=== PATIENT | female | born 1945 | race Caucasian/White ===

== ENCOUNTER → 2017-11-16 11:06 | Outpatient (CLI) | payer MEDICARE, SELFPAY ==
[2017-11-16 14:37] LABS: Absolute Lymphocyte Count 0.87 X10^3/ul (0.83-4.51); Absolute Neutrophil Count 2.6 X10^3/uL (2.0-7.7); Basophil# 0.01 X10^3/uL; Basophil% 0.3 % (0-1); Eosinophil# 0.14 X10^3/uL; Eosinophils% 3.6 % (0-5); Hematocrit 38.3 % (37-47); Hemoglobin 12.8 g/dl (12.0-15.0); Lymphocyte # 0.87 X10^3/ul (4.0); Lymphocyte % 22.5 % (19-41); Mean Corp Hgb Conc 33.4 g/gl (32-36); Mean Corpuscular Hgb 31.7 pg (27.0-32.0); Mean Corpuscular Volume 94.8 fL (81-99); Mean Platelet Vol. 10.4 fl (6.2-12.0); Monocyte% 7.8 % (0-10); Neutrophil # 2.55 X10^3/uL (2.7-7.7); Neutrophil % 65.8 % (47-70); Platelet Count 207 K/mm3 (150-450); RBC Distribution Width CV 13.6 % (11.6-14.6); Red Blood Count 4.04 M/mm3 (4.2-5.4); White Blood Count 3.9 K/mm3 (4.4-11.0)
[2017-11-16 14:42] LABS: POSITIVE COUNT NO; POSITIVE DIFFERENTIAL NO; POSITIVE MORPHOLOGY NO
[2017-11-16 14:45] LABS: ALB/GLOB Ratio 1.1 RATIO (0.9-2.4); AST(SGOT) 32 U/L (15-37); Alanine Aminotransfer ALT/SGPT 44 U/L (13-56); Alkaline Phosphatase 46 U/L (45-117); Anion Gap 8 (5-15); BUN 23 mg/dL (7-18); BUN/Creat Ratio 26.3 RATIO (10-20); Calcium,Total 9.2 mg/dL (8.5-10.1); Chloride 100 mmol/L (98-107); Creatinine, Serum 0.88 mg/dL (0.55-1.02); EST Glomerular Filtration Rate 68 mL/min (>60); Est Glom Filt Rate - Afr Amer 82 mL/min (>60); Globulin 3.7 g/dL (2.2-4.2); Glucose 94 mg/dL (74-106); Potassium 4.1 mmol/L (3.5-5.1); Protein, Total 7.7 g/dL (6.4-8.2); Sodium Level 137 mmol/L (136-145)
== END ==
PROVIDERS: Family Provider Family Medicine; PCP Family Medicine; Visit Provider Internal Medicine Rheumatology
DX: M06.00 Rheumatoid arthritis without rheumatoid factor, unspecified site (principal); Z79.899 Other long term (current) drug therapy; M15.9 Polyosteoarthritis, unspecified; M21.40 Flat foot [pes planus] (acquired), unspecified foot
CPT/HCPCS: 36415; 80053; 85025

== ENCOUNTER → 2018-02-08 11:52 | Outpatient (CLI) | payer MEDICARE, SELFPAY ==
[2018-02-08 14:25] LABS: Absolute Lymphocyte Count 1.03 X10^3/ul (0.83-4.51); Absolute Neutrophil Count 2.4 X10^3/uL (2.0-7.7); Basophil# 0.01 X10^3/uL; Basophil% 0.3 % (0-1); Eosinophil# 0.16 X10^3/uL; Eosinophils% 4.1 % (0-5); Hematocrit 40.3 % (37-47); Hemoglobin 13.3 g/dl (12.0-15.0); Lymphocyte # 1.03 X10^3/ul (4.0); Lymphocyte % 26.6 % (19-41); Mean Corpuscular Hgb 31.2 pg (27.0-32.0); Mean Corpuscular Volume 94.6 fL (81-99); Mean Platelet Vol. 10.9 fl (6.2-12.0); Monocyte# 0.31 X10^3/uL; Neutrophil # 2.36 X10^3/uL (2.7-7.7); Platelet Count 202 K/mm3 (150-450); RBC Distribution Width CV 13.2 % (11.6-14.6); RBC Distribution Width SD 44.1 fl (35.1-43.9); Red Blood Count 4.26 M/mm3 (4.2-5.4); White Blood Count 3.9 K/mm3 (4.4-11.0)
[2018-02-08 14:27] LABS: POSITIVE COUNT NO; POSITIVE DIFFERENTIAL NO; POSITIVE MORPHOLOGY NO
[2018-02-08 14:52] LABS: ALB/GLOB Ratio 1.1 RATIO (0.9-2.4); AST(SGOT) 34 U/L (15-37); Alanine Aminotransfer ALT/SGPT 40 U/L (13-56); Albumin, Serum 4.2 g/dL (3.2-5.0); Alkaline Phosphatase 43 U/L (45-117); Anion Gap 6 (5-15); BUN 23 mg/dL (7-18); BUN/Creat Ratio 24.9 RATIO (10-20); Calcium,Total 9.5 mg/dL (8.5-10.1); Chloride 102 mmol/L (98-107); Creatinine, Serum 0.92 mg/dL (0.55-1.02); EST Glomerular Filtration Rate 63 mL/min (>60); Est Glom Filt Rate - Afr Amer 77 mL/min (>60); Globulin 3.7 g/dL (2.2-4.2); Glucose 81 mg/dL (74-106); Protein, Total 7.9 g/dL (6.4-8.2); Sodium Level 138 mmol/L (136-145)
== END ==
PROVIDERS: Family Provider Family Medicine; PCP Family Medicine; Visit Provider Internal Medicine Rheumatology
DX: M06.00 Rheumatoid arthritis without rheumatoid factor, unspecified site (principal); Z79.899 Other long term (current) drug therapy; M15.9 Polyosteoarthritis, unspecified; M21.40 Flat foot [pes planus] (acquired), unspecified foot
CPT/HCPCS: 36415; 80053; 85025

== ENCOUNTER → 2018-05-12 14:41 | Outpatient (CLI) | payer MEDICARE, SELFPAY ==
[2018-05-12 15:27] LABS: Absolute Lymphocyte Count 0.95 X10^3/ul (0.83-4.51); Absolute Neutrophil Count 2.7 X10^3/uL (2.0-7.7); Basophil# 0.02 X10^3/uL; Basophil% 0.5 % (0-1); Eosinophil# 0.14 X10^3/uL; Eosinophils% 3.4 % (0-5); Hematocrit 37.8 % (37-47); Hemoglobin 12.1 g/dl (12.0-15.0); Lymphocyte # 0.95 X10^3/ul (4.0); Lymphocyte % 22.8 % (19-41); Mean Corpuscular Hgb 30.8 pg (27.0-32.0); Mean Corpuscular Volume 96.2 fL (81-99); Mean Platelet Vol. 10.4 fl (6.2-12.0); Monocyte# 0.34 X10^3/uL; Monocyte% 8.2 % (0-10); Neutrophil # 2.71 X10^3/uL (2.7-7.7); Neutrophil % 64.9 % (47-70); Platelet Count 181 K/mm3 (150-450); RBC Distribution Width CV 13.7 % (11.6-14.6); RBC Distribution Width SD 47.5 fl (35.1-43.9); Red Blood Count 3.93 M/mm3 (4.2-5.4); White Blood Count 4.2 K/mm3 (4.4-11.0)
[2018-05-12 15:37] LABS: POSITIVE COUNT NO; POSITIVE DIFFERENTIAL NO; POSITIVE MORPHOLOGY NO
[2018-05-12 15:53] LABS: ALB/GLOB Ratio 1.1 RATIO (0.9-2.4); AST(SGOT) 34 U/L (15-37); Alanine Aminotransfer ALT/SGPT 40 U/L (13-56); Albumin, Serum 3.9 g/dL (3.2-5.0); Alkaline Phosphatase 38 U/L (45-117); Anion Gap 4 (5-15); BUN 24 mg/dL (7-18); BUN/Creat Ratio 22.6 RATIO (10-20); Calcium,Total 8.9 mg/dL (8.5-10.1); Chloride 103 mmol/L (98-107); Creatinine, Serum 1.06 mg/dL (0.55-1.02); EST Glomerular Filtration Rate 54 mL/min (>60); Est Glom Filt Rate - Afr Amer 65 mL/min (>60); Globulin 3.5 g/dL (2.2-4.2); Glucose 84 mg/dL (74-106); Potassium 3.8 mmol/L (3.5-5.1); Protein, Total 7.4 g/dL (6.4-8.2); Sodium Level 139 mmol/L (136-145)
== END ==
PROVIDERS: Family Provider Family Medicine; PCP Family Medicine; Visit Provider Internal Medicine Rheumatology
DX: M06.00 Rheumatoid arthritis without rheumatoid factor, unspecified site (principal); Z79.899 Other long term (current) drug therapy; M15.9 Polyosteoarthritis, unspecified; M21.40 Flat foot [pes planus] (acquired), unspecified foot; M18.11 Unilateral primary osteoarthritis of first carpometacarpal joint, right hand
CPT/HCPCS: 36415; 80053; 85025

== ENCOUNTER → 2018-08-02 11:32 | Outpatient (CLI) | payer MEDICARE, SELFPAY ==
[2018-08-02 14:31] LABS: Absolute Lymphocyte Count 1.12 X10^3/ul (0.83-4.51); Absolute Neutrophil Count 2.3 X10^3/uL (2.0-7.7); Basophil# 0.02 X10^3/uL; Basophil% 0.5 % (0-1); Eosinophil# 0.17 X10^3/uL; Eosinophils% 4.4 % (0-5); Hematocrit 38.8 % (37-47); Hemoglobin 12.4 g/dl (12.0-15.0); Lymphocyte # 1.12 X10^3/ul (4.0); Lymphocyte % 28.7 % (19-41); Mean Corpuscular Hgb 30.9 pg (27.0-32.0); Mean Corpuscular Volume 96.8 fL (81-99); Mean Platelet Vol. 10.8 fl (6.2-12.0); Monocyte# 0.32 X10^3/uL; Monocyte% 8.2 % (0-10); Neutrophil # 2.27 X10^3/uL (2.7-7.7); Neutrophil % 58.2 % (47-70); Platelet Count 191 K/mm3 (150-450); RBC Distribution Width CV 13.8 % (11.6-14.6); RBC Distribution Width SD 48.8 fl (35.1-43.9); Red Blood Count 4.01 M/mm3 (4.2-5.4); White Blood Count 3.9 K/mm3 (4.4-11.0)
[2018-08-02 14:34] LABS: POSITIVE COUNT NO; POSITIVE DIFFERENTIAL NO; POSITIVE MORPHOLOGY NO
[2018-08-02 14:41] LABS: ALB/GLOB Ratio 1.1 RATIO (0.9-2.4); AST(SGOT) 32 U/L (15-37); Alanine Aminotransfer ALT/SGPT 46 U/L (13-56); Albumin, Serum 3.9 g/dL (3.2-5.0); Alkaline Phosphatase 37 U/L (45-117); Anion Gap 9 (5-15); BUN 19 mg/dL (7-18); Calcium,Total 8.6 mg/dL (8.5-10.1); Chloride 102 mmol/L (98-107); Creatinine, Serum 0.86 mg/dL (0.55-1.02); EST Glomerular Filtration Rate 68 mL/min (>60); Est Glom Filt Rate - Afr Amer 83 mL/min (>60); Globulin 3.7 g/dL (2.2-4.2); Glucose 95 mg/dL (74-106); Potassium 3.8 mmol/L (3.5-5.1); Protein, Total 7.6 g/dL (6.4-8.2); Sodium Level 140 mmol/L (136-145)
== END ==
PROVIDERS: Family Provider Family Medicine; PCP Family Medicine; Referring Provider Internal Medicine Rheumatology; Visit Provider Internal Medicine Rheumatology
DX: M06.00 Rheumatoid arthritis without rheumatoid factor, unspecified site (principal); Z79.899 Other long term (current) drug therapy; M15.9 Polyosteoarthritis, unspecified; M21.40 Flat foot [pes planus] (acquired), unspecified foot; M18.11 Unilateral primary osteoarthritis of first carpometacarpal joint, right hand
CPT/HCPCS: 36415; 80053; 85025

== ENCOUNTER → 2018-11-03 13:40 | Outpatient (CLI) | payer MEDICARE, SELFPAY ==
[2018-11-03 14:17] LABS: Absolute Lymphocyte Count 0.65 X10^3/ul (0.83-4.51); Absolute Neutrophil Count 4.9 X10^3/uL (2.0-7.7); Basophil# 0.01 X10^3/uL; Basophil% 0.2 % (0-1); Eosinophil# 0.09 X10^3/uL; Eosinophils% 1.5 % (0-5); Hematocrit 39.2 % (37-47); Hemoglobin 12.9 g/dl (12.0-15.0); Lymphocyte # 0.65 X10^3/ul (4.0); Lymphocyte % 11.1 % (19-41); Mean Corp Hgb Conc 32.9 g/gl (32-36); Mean Corpuscular Hgb 31.4 pg (27.0-32.0); Mean Corpuscular Volume 95.4 fL (81-99); Mean Platelet Vol. 10.2 fl (6.2-12.0); Monocyte# 0.14 X10^3/uL; Monocyte% 2.4 % (0-10); Neutrophil # 4.93 X10^3/uL (2.7-7.7); Neutrophil % 84.6 % (47-70); Platelet Count 177 K/mm3 (150-450); RBC Distribution Width CV 13.7 % (11.6-14.6); RBC Distribution Width SD 47.2 fl (35.1-43.9); Red Blood Count 4.11 M/mm3 (4.2-5.4); White Blood Count 5.8 K/mm3 (4.4-11.0)
[2018-11-03 14:21] LABS: POSITIVE COUNT NO; POSITIVE DIFFERENTIAL NO; POSITIVE MORPHOLOGY NO
[2018-11-03 14:58] LABS: ALB/GLOB Ratio 1.1 RATIO (0.9-2.4); AST(SGOT) 31 U/L (15-37); Alanine Aminotransfer ALT/SGPT 39 U/L (13-56); Alkaline Phosphatase 43 U/L (45-117); Anion Gap 7 (5-15); BUN 16 mg/dL (7-18); BUN/Creat Ratio 19.6 RATIO (10-20); Calcium,Total 8.7 mg/dL (8.5-10.1); Chloride 102 mmol/L (98-107); Creatinine, Serum 0.82 mg/dL (0.55-1.02); EST Glomerular Filtration Rate 73 mL/min (>60); Est Glom Filt Rate - Afr Amer 88 mL/min (>60); Globulin 3.5 g/dL (2.2-4.2); Glucose 127 mg/dL (74-106); Potassium 3.7 mmol/L (3.5-5.1); Protein, Total 7.5 g/dL (6.4-8.2); Sodium Level 138 mmol/L (136-145)
== END ==
PROVIDERS: Family Provider Family Medicine; PCP Family Medicine; Referring Provider Internal Medicine Rheumatology; Visit Provider Internal Medicine Rheumatology
DX: M06.00 Rheumatoid arthritis without rheumatoid factor, unspecified site (principal); Z79.899 Other long term (current) drug therapy; M15.9 Polyosteoarthritis, unspecified; M21.40 Flat foot [pes planus] (acquired), unspecified foot; M18.11 Unilateral primary osteoarthritis of first carpometacarpal joint, right hand
CPT/HCPCS: 36415; 80053; 85025

== ENCOUNTER → 2019-01-31 | Outpatient (CLI) | payer MEDICARE, SELFPAY ==
[2019-01-31 10:12] LABS: Absolute Lymphocyte Count 1.19 X10^3/ul (0.83-4.51); Absolute Neutrophil Count 1.9 X10^3/uL (2.0-7.7); Basophil# 0.03 X10^3/uL; Basophil% 0.8 % (0-1); Eosinophils% 5.6 % (0-5); Hematocrit 39.6 % (37-47); Lymphocyte # 1.19 X10^3/ul (4.0); Lymphocyte % 33.1 % (19-41); Mean Corp Hgb Conc 32.8 g/gl (32-36); Mean Corpuscular Hgb 31.1 pg (27.0-32.0); Mean Corpuscular Volume 94.7 fL (81-99); Mean Platelet Vol. 10.6 fl (6.2-12.0); Monocyte# 0.26 X10^3/uL; Monocyte% 7.2 % (0-10); Neutrophil # 1.92 X10^3/uL (2.7-7.7); Neutrophil % 53.3 % (47-70); Platelet Count 183 K/mm3 (150-450); RBC Distribution Width CV 14.2 % (11.6-14.6); RBC Distribution Width SD 48.2 fl (35.1-43.9); Red Blood Count 4.18 M/mm3 (4.2-5.4); White Blood Count 3.6 K/mm3 (4.4-11.0)
[2019-01-31 10:21] LABS: POSITIVE COUNT NO; POSITIVE DIFFERENTIAL NO; POSITIVE MORPHOLOGY NO
[2019-01-31 10:41] LABS: ALB/GLOB Ratio 1.2 RATIO (0.9-2.4); AST(SGOT) 40 U/L (15-37); Alanine Aminotransfer ALT/SGPT 44 U/L (13-56); Albumin, Serum 4.2 g/dL (3.2-5.0); Alkaline Phosphatase 43 U/L (45-117); Anion Gap 4 (5-15); BUN 20 mg/dL (7-18); BUN/Creat Ratio 23.8 RATIO (10-20); Calcium,Total 8.9 mg/dL (8.5-10.1); Chloride 105 mmol/L (98-107); Creatinine, Serum 0.84 mg/dL (0.55-1.02); EST Glomerular Filtration Rate 71 mL/min (>60); Est Glom Filt Rate - Afr Amer 85 mL/min (>60); Globulin 3.5 g/dL (2.2-4.2); Glucose 78 mg/dL (74-106); Potassium 3.6 mmol/L (3.5-5.1); Protein, Total 7.7 g/dL (6.4-8.2); Sodium Level 137 mmol/L (136-145)
[2019-02-01 14:07] LABS: SJOGREN'S Anti-SS-A test < 0.2 AI (0.0-0.9); SJOGREN'S Anti-SS-B test < 0.2 AI (0.0-0.9)
[2019-02-02 12:00] LABS: ANTINUCLEAR ANTIBODIES DIRECT Negative (Negative)
== END | disposition home or self-care (01) ==
LOC: MTLAB 08:53
PROVIDERS: Family Provider Family Medicine; PCP Family Medicine; Referring Provider Internal Medicine Rheumatology; Visit Provider Internal Medicine Rheumatology
DX: M06.00 Rheumatoid arthritis without rheumatoid factor, unspecified site (principal); Z79.899 Other long term (current) drug therapy; M15.9 Polyosteoarthritis, unspecified; M21.40 Flat foot [pes planus] (acquired), unspecified foot; M18.11 Unilateral primary osteoarthritis of first carpometacarpal joint, right hand
CPT/HCPCS: 36415; 80053; 85025; 86038; 86235

== ENCOUNTER → 2019-04-23 | Outpatient (CLI) | payer MEDICARE, SELFPAY ==
[2019-04-23 13:36] LABS: Absolute Lymphocyte Count 0.88 X10^3/uL (0.83-4.51); Absolute Neutrophil Count 2.5 X10^3/uL (2.0-7.7); Basophil# 0.03 X10^3/uL; Basophil% 0.7 % (0-1); Eosinophil# 0.16 X10^3/uL; Hematocrit 37.1 % (37-47); Hemoglobin 12.1 g/dL (12.0-15.0); Lymphocyte # 0.88 X10^3/ul (4.0); Lymphocyte % 21.9 % (19-41); Mean Corp Hgb Conc 32.6 g/dL (32-36); Mean Corpuscular Hgb 31.4 pg (27.0-32.0); Mean Corpuscular Volume 96.4 fL (81-99); Mean Platelet Vol. 10.2 fl (6.2-12.0); Monocyte# 0.44 X10^3/uL; NRBC Flagged by Analyzer 0 % (0-5); Neutrophil # 2.49 X10^3/uL (2.7-7.7); Neutrophil % 62.2 % (47-70); Platelet Count 184 K/mm3 (150-450); RBC Distribution Width CV 13.2 % (11.6-14.6); RBC Distribution Width SD 45.8 fl (35.1-43.9); Red Blood Count 3.85 M/mm3 (4.2-5.4)
[2019-04-23 14:10] LABS: ALB/GLOB Ratio 1.1 RATIO (0.9-2.4); AST(SGOT) 34 U/L (15-37); Alanine Aminotransfer ALT/SGPT 42 U/L (13-56); Albumin, Serum 3.9 g/dL (3.2-5.0); Alkaline Phosphatase 48 U/L (45-117); Anion Gap 4 (5-15); BUN 19 mg/dL (7-18); Chloride 103 mmol/L (98-107); Creatinine, Serum 0.83 mg/dL (0.55-1.02); EST Glomerular Filtration Rate 72 mL/min (>60); Est Glom Filt Rate - Afr Amer 87 mL/min (>60); Globulin 3.7 g/dL (2.2-4.2); Glucose 86 mg/dL (74-106); Protein, Total 7.6 g/dL (6.4-8.2); Sodium Level 136 mmol/L (136-145)
== END | disposition home or self-care (01) ==
LOC: MTLAB 11:59
PROVIDERS: Family Provider Family Medicine; PCP Family Medicine; Referring Provider Internal Medicine Rheumatology; Visit Provider Internal Medicine Rheumatology
DX: M06.00 Rheumatoid arthritis without rheumatoid factor, unspecified site (principal); Z79.899 Other long term (current) drug therapy; M15.9 Polyosteoarthritis, unspecified; M21.40 Flat foot [pes planus] (acquired), unspecified foot; M18.11 Unilateral primary osteoarthritis of first carpometacarpal joint, right hand
CPT/HCPCS: 36415; 80053; 85025

== ENCOUNTER → 2019-07-25 12:41 | Outpatient (CLI) | payer MEDICARE, SELFPAY ==
[2019-07-25 14:10] LABS: Absolute Lymphocyte Count 1.01 X10^3/uL (0.83-4.51); Absolute Neutrophil Count 2.4 X10^3/uL (2.0-7.7); Basophil# 0.02 X10^3/uL; Basophil% 0.5 % (0-1); Eosinophil# 0.14 X10^3/uL; Eosinophils% 3.5 % (0-5); Hematocrit 37.9 % (37-47); Hemoglobin 12.4 g/dL (12.0-15.0); Lymphocyte # 1.01 X10^3/ul (4.0); Lymphocyte % 25.5 % (19-41); Mean Corp Hgb Conc 32.7 g/dL (32-36); Mean Corpuscular Hgb 31.7 pg (27.0-32.0); Mean Corpuscular Volume 96.9 fL (81-99); Mean Platelet Vol. 10.9 fl (6.2-12.0); Monocyte# 0.36 X10^3/uL; Monocyte% 9.1 % (0-10); NRBC Flagged by Analyzer 0 % (0-5); Neutrophil # 2.43 X10^3/uL (2.7-7.7); Neutrophil % 61.4 % (47-70); Platelet Count 174 K/mm3 (150-450); RBC Distribution Width CV 13.4 % (11.6-14.6); RBC Distribution Width SD 47.7 fl (35.1-43.9); Red Blood Count 3.91 M/mm3 (4.2-5.4)
[2019-07-25 14:29] LABS: ALB/GLOB Ratio 1.1 RATIO (0.9-2.4); AST(SGOT) 34 U/L (15-37); Alanine Aminotransfer ALT/SGPT 45 U/L (13-56); Albumin, Serum 3.7 g/dL (3.2-5.0); Alkaline Phosphatase 38 U/L (45-117); Anion Gap 6 (5-15); BUN 21 mg/dL (7-18); BUN/Creat Ratio 13.5 RATIO (10-20); Calcium,Total 8.9 mg/dL (8.5-10.1); Chloride 103 mmol/L (98-107); Creatinine, Serum 1.55 mg/dL (0.55-1.02); EST Glomerular Filtration Rate 35 mL/min (>60); Est Glom Filt Rate - Afr Amer 42 mL/min (>60); Globulin 3.5 g/dL (2.2-4.2); Glucose 132 mg/dL (74-106); Protein, Total 7.2 g/dL (6.4-8.2); Sodium Level 138 mmol/L (136-145)
== END ==
PROVIDERS: Family Provider Family Medicine; PCP Family Medicine; Referring Provider Internal Medicine Rheumatology; Visit Provider Internal Medicine Rheumatology
DX: M06.00 Rheumatoid arthritis without rheumatoid factor, unspecified site (principal); Z79.899 Other long term (current) drug therapy; M15.9 Polyosteoarthritis, unspecified; M21.40 Flat foot [pes planus] (acquired), unspecified foot; M18.11 Unilateral primary osteoarthritis of first carpometacarpal joint, right hand
CPT/HCPCS: 36415; 80053; 85025

== ENCOUNTER → 2019-08-28 11:45 | Outpatient (CLI) | payer MEDICARE, SELFPAY ==
[2019-08-28 13:41] LABS: Absolute Lymphocyte Count 1.37 X10^3/uL (0.83-4.51); Absolute Neutrophil Count 2.4 X10^3/uL (2.0-7.7); Basophil# 0.04 X10^3/uL; Basophil% 0.9 % (0-1); Eosinophil# 0.13 X10^3/uL; Hemoglobin 12.8 g/dL (12.0-15.0); Lymphocyte # 1.37 X10^3/ul (4.0); Lymphocyte % 31.4 % (19-41); Mean Corp Hgb Conc 32.8 g/dL (32-36); Mean Corpuscular Hgb 31.1 pg (27.0-32.0); Mean Corpuscular Volume 94.7 fL (81-99); Mean Platelet Vol. 10.9 fl (6.2-12.0); Monocyte# 0.41 X10^3/uL; Monocyte% 9.4 % (0-10); NRBC Flagged by Analyzer 0 % (0-5); Neutrophil # 2.41 X10^3/uL (2.7-7.7); Neutrophil % 55.1 % (47-70); Platelet Count 174 K/mm3 (150-450); RBC Distribution Width CV 12.7 % (11.6-14.6); RBC Distribution Width SD 43.9 fl (35.1-43.9); Red Blood Count 4.12 M/mm3 (4.2-5.4); White Blood Count 4.4 K/mm3 (4.4-11.0)
[2019-08-28 13:57] LABS: ALB/GLOB Ratio 1.2 RATIO (0.9-2.4); AST(SGOT) 36 U/L (15-37); Alanine Aminotransfer ALT/SGPT 46 U/L (13-56); Albumin, Serum 4.1 g/dL (3.2-5.0); Alkaline Phosphatase 39 U/L (45-117); Anion Gap 5 (5-15); BUN 20 mg/dL (7-18); BUN/Creat Ratio 21.7 RATIO (10-20); Calcium,Total 9.3 mg/dL (8.5-10.1); Chloride 102 mmol/L (98-107); Creatinine, Serum 0.92 mg/dL (0.55-1.02); EST Glomerular Filtration Rate 63 mL/min (>60); Est Glom Filt Rate - Afr Amer 77 mL/min (>60); Globulin 3.4 g/dL (2.2-4.2); Glucose 83 mg/dL (74-106); Potassium 3.7 mmol/L (3.5-5.1); Protein, Total 7.5 g/dL (6.4-8.2); Sodium Level 137 mmol/L (136-145)
== END ==
PROVIDERS: Family Provider Family Medicine; PCP Family Medicine; Referring Provider Internal Medicine Rheumatology; Visit Provider Internal Medicine Rheumatology
DX: M06.00 Rheumatoid arthritis without rheumatoid factor, unspecified site (principal); Z79.899 Other long term (current) drug therapy; M15.9 Polyosteoarthritis, unspecified; M21.40 Flat foot [pes planus] (acquired), unspecified foot; M18.11 Unilateral primary osteoarthritis of first carpometacarpal joint, right hand
CPT/HCPCS: 36415; 80053; 85025

== ENCOUNTER → 2019-11-21 13:25 | Outpatient (CLI) | payer MEDICARE, SELFPAY ==
[2019-11-21 15:47] LABS: Absolute Lymphocyte Count 1.13 X10^3/uL (0.83-4.51); Absolute Neutrophil Count 2.8 X10^3/uL (2.0-7.7); Basophil# 0.03 X10^3/uL; Basophil% 0.7 % (0-1); Eosinophil# 0.14 X10^3/uL; Eosinophils% 3.2 % (0-5); Hematocrit 38.5 % (37-47); Hemoglobin 12.5 g/dL (12.0-15.0); Lymphocyte # 1.13 X10^3/ul (4.0); Lymphocyte % 26.2 % (19-41); Mean Corp Hgb Conc 32.5 g/dL (32-36); Mean Corpuscular Hgb 31.1 pg (27.0-32.0); Mean Corpuscular Volume 95.8 fL (81-99); Mean Platelet Vol. 10.4 fl (6.2-12.0); Monocyte# 0.25 X10^3/uL; Monocyte% 5.8 % (0-10); NRBC Flagged by Analyzer 0 % (0-5); Neutrophil # 2.77 X10^3/uL (2.7-7.7); Neutrophil % 64.1 % (47-70); Platelet Count 192 K/mm3 (150-450); RBC Distribution Width CV 13.5 % (11.6-14.6); RBC Distribution Width SD 47.1 fl (35.1-43.9); Red Blood Count 4.02 M/mm3 (4.2-5.4); White Blood Count 4.3 K/mm3 (4.4-11.0)
[2019-11-21 16:04] LABS: ALB/GLOB Ratio 1.1 RATIO (0.9-2.4); AST(SGOT) 33 U/L (15-37); Alanine Aminotransfer ALT/SGPT 42 U/L (13-56); Albumin, Serum 4.1 g/dL (3.2-5.0); Alkaline Phosphatase 40 U/L (45-117); Anion Gap 4 (5-15); BUN 19 mg/dL (7-18); BUN/Creat Ratio 20.6 RATIO (10-20); Calcium,Total 9.3 mg/dL (8.5-10.1); Chloride 101 mmol/L (98-107); Creatinine, Serum 0.92 mg/dL (0.55-1.02); EST Glomerular Filtration Rate 63 mL/min (>60); Est Glom Filt Rate - Afr Amer 76 mL/min (>60); Globulin 3.6 g/dL (2.2-4.2); Glucose 210 mg/dL (74-106); Potassium 3.6 mmol/L (3.5-5.1); Protein, Total 7.7 g/dL (6.4-8.2); Sodium Level 136 mmol/L (136-145)
== END ==
PROVIDERS: PCP Family Medicine; Referring Provider Internal Medicine Rheumatology; Visit Provider Internal Medicine Rheumatology
DX: M06.00 Rheumatoid arthritis without rheumatoid factor, unspecified site (principal); Z79.899 Other long term (current) drug therapy; M15.9 Polyosteoarthritis, unspecified; M21.40 Flat foot [pes planus] (acquired), unspecified foot; M18.11 Unilateral primary osteoarthritis of first carpometacarpal joint, right hand
CPT/HCPCS: 36415; 80053; 85025

== ENCOUNTER → 2020-02-20 09:10 | Outpatient (CLI) | payer MEDICARE, SELFPAY ==
[2020-02-20 13:07] LABS: Absolute Lymphocyte Count 0.89 X10^3/uL (0.83-4.51); Absolute Neutrophil Count 2.9 X10^3/uL (2.0-7.7); Basophil# 0.02 X10^3/uL; Basophil% 0.5 % (0-1); Eosinophil# 0.16 X10^3/uL; Eosinophils% 3.7 % (0-5); Hematocrit 37.6 % (37-47); Hemoglobin 12.1 g/dL (12.0-15.0); Lymphocyte # 0.89 X10^3/ul (4.0); Lymphocyte % 20.5 % (19-41); Mean Corp Hgb Conc 32.2 g/dL (32-36); Mean Corpuscular Hgb 31.4 pg (27.0-32.0); Mean Corpuscular Volume 97.7 fL (81-99); Mean Platelet Vol. 10.9 fl (6.2-12.0); Monocyte# 0.41 X10^3/uL; Monocyte% 9.4 % (0-10); NRBC Flagged by Analyzer 0 % (0-5); Neutrophil # 2.86 X10^3/uL (2.7-7.7); Neutrophil % 65.7 % (47-70); Platelet Count 183 K/mm3 (150-450); RBC Distribution Width CV 13.2 % (11.6-14.6); RBC Distribution Width SD 46.5 fl (35.1-43.9); Red Blood Count 3.85 M/mm3 (4.2-5.4); White Blood Count 4.4 K/mm3 (4.4-11.0)
[2020-02-20 13:22] LABS: ALB/GLOB Ratio 1.1 RATIO (0.9-2.4); AST(SGOT) 33 U/L (15-37); Alanine Aminotransfer ALT/SGPT 37 U/L (13-56); Albumin, Serum 3.8 g/dL (3.2-5.0); Alkaline Phosphatase 37 U/L (45-117); Anion Gap 4 (5-15); BUN 23 mg/dL (7-18); BUN/Creat Ratio 29.8 RATIO (10-20); Calcium,Total 8.9 mg/dL (8.5-10.1); Chloride 107 mmol/L (98-107); Creatinine, Serum 0.77 mg/dL (0.55-1.02); EST Glomerular Filtration Rate 78 mL/min (>60); Est Glom Filt Rate - Afr Amer 94 mL/min (>60); Globulin 3.5 g/dL (2.2-4.2); Glucose 65 mg/dL (74-106); Potassium 3.7 mmol/L (3.5-5.1); Protein, Total 7.3 g/dL (6.4-8.2); Sodium Level 140 mmol/L (136-145)
== END ==
PROVIDERS: PCP Family Medicine; Referring Provider Internal Medicine Rheumatology; Visit Provider Internal Medicine Rheumatology
DX: M06.00 Rheumatoid arthritis without rheumatoid factor, unspecified site (principal); Z79.899 Other long term (current) drug therapy; M15.9 Polyosteoarthritis, unspecified; M21.40 Flat foot [pes planus] (acquired), unspecified foot; M18.11 Unilateral primary osteoarthritis of first carpometacarpal joint, right hand
CPT/HCPCS: 36415; 80053; 85025

== ENCOUNTER → 2020-05-20 11:08 | Outpatient (CLI) | payer MEDICARE, SELFPAY ==
[2020-05-20 15:33] LABS: Absolute Lymphocyte Count 0.96 X10^3/uL (0.83-4.51); Absolute Neutrophil Count 2.1 X10^3/uL (2.0-7.7); Basophil# 0.03 X10^3/uL; Basophil% 0.8 % (0-1); Eosinophil# 0.17 X10^3/uL; Eosinophils% 4.7 % (0-5); Hematocrit 39.2 % (37-47); Hemoglobin 12.8 g/dL (12.0-15.0); Lymphocyte # 0.96 X10^3/ul (4.0); Lymphocyte % 26.6 % (19-41); Mean Corp Hgb Conc 32.7 g/dL (32-36); Mean Corpuscular Hgb 31.8 pg (27.0-32.0); Mean Corpuscular Volume 97.5 fL (81-99); Monocyte# 0.35 X10^3/uL; Monocyte% 9.7 % (0-10); NRBC Flagged by Analyzer 0 % (0-5); Neutrophil # 2.09 X10^3/uL (2.7-7.7); Neutrophil % 57.9 % (47-70); Platelet Count 194 K/mm3 (150-450); RBC Distribution Width CV 13.1 % (11.6-14.6); RBC Distribution Width SD 46.6 fl (35.1-43.9); Red Blood Count 4.02 M/mm3 (4.2-5.4); White Blood Count 3.6 K/mm3 (4.4-11.0)
[2020-05-20 16:19] LABS: ALB/GLOB Ratio 1.1 RATIO (0.9-2.4); AST(SGOT) 32 U/L (15-37); Alanine Aminotransfer ALT/SGPT 40 U/L (13-56); Alkaline Phosphatase 39 U/L (45-117); Anion Gap 2 (5-15); BUN 19 mg/dL (7-18); Chloride 103 mmol/L (98-107); Creatinine, Serum 0.83 mg/dL (0.55-1.02); EST Glomerular Filtration Rate 72 mL/min (>60); Est Glom Filt Rate - Afr Amer 87 mL/min (>60); Globulin 3.7 g/dL (2.2-4.2); Glucose 74 mg/dL (74-106); Potassium 3.9 mmol/L (3.5-5.1); Protein, Total 7.7 g/dL (6.4-8.2); Sodium Level 137 mmol/L (136-145)
== END ==
PROVIDERS: PCP Family Medicine; Referring Provider Internal Medicine Rheumatology; Visit Provider Internal Medicine Rheumatology
DX: M06.00 Rheumatoid arthritis without rheumatoid factor, unspecified site (principal); M18.11 Unilateral primary osteoarthritis of first carpometacarpal joint, right hand; M21.40 Flat foot [pes planus] (acquired), unspecified foot; Z79.899 Other long term (current) drug therapy
CPT/HCPCS: 36415; 80053; 85025

== ENCOUNTER → 2020-08-13 16:30 | Outpatient (CLI) | payer MEDICARE, SELFPAY ==
[2020-08-13 18:25] LABS: Absolute Lymphocyte Count 0.87 X10^3/uL (0.83-4.51); Absolute Neutrophil Count 2.8 X10^3/uL (2.0-7.7); Basophil# 0.03 X10^3/uL; Basophil% 0.7 % (0-1); Eosinophil# 0.16 X10^3/uL; Eosinophils% 3.7 % (0-5); Hematocrit 38.6 % (37-47); Hemoglobin 12.2 g/dL (12.0-15.0); Lymphocyte # 0.87 X10^3/ul (4.0); Lymphocyte % 20.4 % (19-41); Mean Corp Hgb Conc 31.6 g/dL (32-36); Mean Corpuscular Hgb 31.3 pg (27.0-32.0); Mean Platelet Vol. 11.1 fl (6.2-12.0); Monocyte# 0.36 X10^3/uL; Monocyte% 8.4 % (0-10); NRBC Flagged by Analyzer 0 % (0-5); Neutrophil # 2.84 X10^3/uL (2.7-7.7); Neutrophil % 66.6 % (47-70); Platelet Count 196 K/mm3 (150-450); RBC Distribution Width CV 13.3 % (11.6-14.6); White Blood Count 4.3 K/mm3 (4.4-11.0)
[2020-08-13 19:28] LABS: ALB/GLOB Ratio 1.2 RATIO (0.9-2.4); AST(SGOT) 39 U/L (15-37); Alanine Aminotransfer ALT/SGPT 51 U/L (13-56); Albumin, Serum 4.1 g/dL (3.2-5.0); Alkaline Phosphatase 47 U/L (45-117); Anion Gap 4 (5-15); BUN 26 mg/dL (7-18); BUN/Creat Ratio 26.4 RATIO (10-20); Calcium,Total 9.3 mg/dL (8.5-10.1); Chloride 105 mmol/L (98-107); Creatinine, Serum 0.98 mg/dL (0.55-1.02); EST Glomerular Filtration Rate 59 mL/min (>60); Est Glom Filt Rate - Afr Amer 71 mL/min (>60); Globulin 3.4 g/dL (2.2-4.2); Glucose 97 mg/dL (74-106); Potassium 3.7 mmol/L (3.5-5.1); Protein, Total 7.5 g/dL (6.4-8.2); Sodium Level 138 mmol/L (136-145)
== END ==
PROVIDERS: PCP Family Medicine; Referring Provider Internal Medicine Rheumatology; Visit Provider Internal Medicine Rheumatology
DX: M06.00 Rheumatoid arthritis without rheumatoid factor, unspecified site (principal); Z79.899 Other long term (current) drug therapy; M15.9 Polyosteoarthritis, unspecified; M21.40 Flat foot [pes planus] (acquired), unspecified foot; M18.11 Unilateral primary osteoarthritis of first carpometacarpal joint, right hand
CPT/HCPCS: 36415; 80053; 85025

== ENCOUNTER → 2020-10-03 14:52 | Outpatient (CLI) | payer MEDICARE, SELFPAY ==
[2020-10-03 17:49] LABS: Absolute Lymphocyte Count 0.72 X10^3/uL (0.83-4.51); Absolute Neutrophil Count 2.3 X10^3/uL (2.0-7.7); Basophil# 0.02 X10^3/uL; Basophil% 0.6 % (0-1); Eosinophils% 2.9 % (0-5); Hematocrit 37.6 % (37-47); Hemoglobin 12.2 g/dL (12.0-15.0); Lymphocyte # 0.72 X10^3/ul (4.0); Lymphocyte % 21.1 % (19-41); Mean Corp Hgb Conc 32.4 g/dL (32-36); Mean Corpuscular Hgb 31.5 pg (27.0-32.0); Mean Corpuscular Volume 97.2 fL (81-99); Mean Platelet Vol. 10.5 fl (6.2-12.0); Monocyte# 0.24 X10^3/uL; NRBC Flagged by Analyzer 0 % (0-5); Neutrophil # 2.34 X10^3/uL (2.7-7.7); Neutrophil % 68.4 % (47-70); Platelet Count 187 K/mm3 (150-450); RBC Distribution Width CV 13.2 % (11.6-14.6); RBC Distribution Width SD 47.2 fl (35.1-43.9); Red Blood Count 3.87 M/mm3 (4.2-5.4); White Blood Count 3.4 K/mm3 (4.4-11.0)
[2020-10-03 18:07] LABS: ALB/GLOB Ratio 1.1 RATIO (0.9-2.4); AST(SGOT) 38 U/L (15-37); Alanine Aminotransfer ALT/SGPT 49 U/L (13-56); Albumin, Serum 3.9 g/dL (3.2-5.0); Alkaline Phosphatase 43 U/L (45-117); Anion Gap 5 (5-15); BUN 21 mg/dL (7-18); BUN/Creat Ratio 26.2 RATIO (10-20); Calcium,Total 8.8 mg/dL (8.5-10.1); Chloride 105 mmol/L (98-107); EST Glomerular Filtration Rate 74 mL/min (>60); Est Glom Filt Rate - Afr Amer 90 mL/min (>60); Globulin 3.5 g/dL (2.2-4.2); Glucose 105 mg/dL (74-106); Potassium 3.7 mmol/L (3.5-5.1); Protein, Total 7.4 g/dL (6.4-8.2); Sodium Level 139 mmol/L (136-145)
== END ==
PROVIDERS: PCP Family Medicine; Referring Provider Internal Medicine Rheumatology; Visit Provider Internal Medicine Rheumatology
DX: M06.00 Rheumatoid arthritis without rheumatoid factor, unspecified site (principal); M18.11 Unilateral primary osteoarthritis of first carpometacarpal joint, right hand; M21.40 Flat foot [pes planus] (acquired), unspecified foot; Z79.899 Other long term (current) drug therapy
CPT/HCPCS: 36415; 80053; 85025

== ENCOUNTER → 2020-12-19 09:46 | Outpatient (CLI) | payer MEDICARE, SELFPAY ==
[2020-12-19 12:04] LABS: Absolute Lymphocyte Count 0.93 X10^3/uL (0.83-4.51); Absolute Neutrophil Count 2.7 X10^3/uL (2.0-7.7); Basophil# 0.02 X10^3/uL; Basophil% 0.5 % (0-1); Eosinophil# 0.19 X10^3/uL; Eosinophils% 4.6 % (0-5); Hematocrit 40.9 % (37-47); Hemoglobin 13.1 g/dL (12.0-15.0); Lymphocyte # 0.93 X10^3/ul (4.0); Lymphocyte % 22.7 % (19-41); Mean Corpuscular Hgb 31.5 pg (27.0-32.0); Mean Corpuscular Volume 98.3 fL (81-99); Mean Platelet Vol. 10.8 fl (6.2-12.0); Monocyte# 0.29 X10^3/uL; Monocyte% 7.1 % (0-10); NRBC Flagged by Analyzer 0 % (0-5); Neutrophil # 2.66 X10^3/uL (2.7-7.7); Neutrophil % 64.9 % (47-70); Platelet Count 193 K/mm3 (150-450); RBC Distribution Width CV 13.2 % (11.6-14.6); Red Blood Count 4.16 M/mm3 (4.2-5.4); White Blood Count 4.1 K/mm3 (4.4-11.0)
[2020-12-19 12:20] LABS: Vitamin B12 725 pg/mL (211-911)
[2020-12-19 12:29] LABS: ALB/GLOB Ratio 1.1 RATIO (0.9-2.4); AST(SGOT) 34 U/L (15-37); Alanine Aminotransfer ALT/SGPT 47 U/L (13-56); Albumin, Serum 3.9 g/dL (3.2-5.0); Alkaline Phosphatase 42 U/L (45-117); Anion Gap 5 (5-15); BUN 22 mg/dL (7-18); BUN/Creat Ratio 24.5 RATIO (10-20); Calcium,Total 9.1 mg/dL (8.5-10.1); Chloride 102 mmol/L (98-107); Cholesterol 228 mg/dL (200); EST Glomerular Filtration Rate 65 mL/min (>60); Est Glom Filt Rate - Afr Amer 79 mL/min (>60); Globulin 3.5 g/dL (2.2-4.2); Glucose 86 mg/dL (74-106); High Density Lipoprotein 109 mg/dL; Potassium 3.9 mmol/L (3.5-5.1); Protein, Total 7.4 g/dL (6.4-8.2); Sodium Level 137 mmol/L (136-145); Triglycerides 60 mg/dL; Very Low Density Lipoprotein 12 mg/dL (5-40)
== END ==
PROVIDERS: PCP Family Medicine; Referring Provider Family Medicine; Visit Provider Family Medicine
DX: M06.00 Rheumatoid arthritis without rheumatoid factor, unspecified site (principal); M21.40 Flat foot [pes planus] (acquired), unspecified foot; M18.11 Unilateral primary osteoarthritis of first carpometacarpal joint, right hand; E53.8 Deficiency of other specified B group vitamins; E78.2 Mixed hyperlipidemia; Z79.899 Other long term (current) drug therapy
CPT/HCPCS: 36415; 80053; 80061; 82607; 85025

== ENCOUNTER → 2021-03-05 13:53 | Outpatient (CLI) | payer MEDICARE, SELFPAY ==
[2021-03-05 15:01] LABS: Absolute Lymphocyte Count 1.18 X10^3/uL (0.83-4.51); Basophil# 0.03 X10^3/uL; Basophil% 0.6 % (0-1); Eosinophil# 0.16 X10^3/uL; Eosinophils% 3.3 % (0-5); Hematocrit 37.9 % (37-47); Hemoglobin 12.4 g/dL (12.0-15.0); Lymphocyte # 1.18 X10^3/ul (0.83-4.51); Lymphocyte % 24.6 % (19-41); Mean Corp Hgb Conc 32.7 g/dL (32-36); Mean Corpuscular Hgb 31.8 pg (27.0-32.0); Mean Corpuscular Volume 97.2 fL (81-99); Mean Platelet Vol. 10.5 fl (6.2-12.0); Monocyte# 0.37 X10^3/uL; Monocyte% 7.7 % (0-10); NRBC Flagged by Analyzer 0 % (0-5); Neutrophil # 3.04 X10^3/uL (2.7-7.7); Neutrophil % 63.6 % (47-70); Platelet Count 193 K/mm3 (150-450); RBC Distribution Width CV 13.6 % (11.6-14.6); RBC Distribution Width SD 48.2 fl (35.1-43.9); White Blood Count 4.8 K/mm3 (4.4-11.0)
[2021-03-05 15:39] LABS: ALB/GLOB Ratio 1.1 RATIO (0.9-2.4); AST(SGOT) 39 U/L (15-37); Alanine Aminotransfer ALT/SGPT 47 U/L (13-56); Albumin, Serum 3.8 g/dL (3.2-5.0); Alkaline Phosphatase 38 U/L (45-117); Anion Gap 3 (5-15); BUN 26 mg/dL (7-18); BUN/Creat Ratio 27.4 RATIO (10-20); Calcium,Total 9.5 mg/dL (8.5-10.1); Chloride 105 mmol/L (98-107); Creatinine, Serum 0.95 mg/dL (0.55-1.02); EST Glomerular Filtration Rate 61 mL/min (>60); Est Glom Filt Rate - Afr Amer 74 mL/min (>60); Globulin 3.4 g/dL (2.2-4.2); Glucose 88 mg/dL (74-106); Potassium 3.7 mmol/L (3.5-5.1); Protein, Total 7.2 g/dL (6.4-8.2); Sodium Level 138 mmol/L (136-145)
== END ==
PROVIDERS: PCP Family Medicine; Referring Provider Internal Medicine Rheumatology; Visit Provider Internal Medicine Rheumatology
DX: M06.00 Rheumatoid arthritis without rheumatoid factor, unspecified site (principal); M21.40 Flat foot [pes planus] (acquired), unspecified foot; M18.11 Unilateral primary osteoarthritis of first carpometacarpal joint, right hand; Z79.899 Other long term (current) drug therapy
CPT/HCPCS: 36415; 80053; 85025

== ENCOUNTER → 2021-05-06 10:52 | Outpatient (CLI) | payer MEDICARE, SELFPAY ==
[2021-05-06 12:19] LABS: Absolute Lymphocyte Count 0.98 X10^3/uL (0.83-4.51); Absolute Neutrophil Count 2.8 X10^3/uL (2.0-7.7); Basophil# 0.02 X10^3/uL; Basophil% 0.5 % (0-1); Eosinophil# 0.16 X10^3/uL; Eosinophils% 3.7 % (0-5); Hematocrit 37.4 % (37-47); Lymphocyte # 0.98 X10^3/ul (0.83-4.51); Lymphocyte % 22.8 % (19-41); Mean Corp Hgb Conc 32.1 g/dL (32-36); Mean Corpuscular Hgb 31.5 pg (27.0-32.0); Mean Corpuscular Volume 98.2 fL (81-99); Mean Platelet Vol. 10.8 fl (6.2-12.0); Monocyte# 0.35 X10^3/uL; Monocyte% 8.1 % (0-10); NRBC Flagged by Analyzer 0 % (0-5); Neutrophil # 2.78 X10^3/uL (2.7-7.7); Neutrophil % 64.7 % (47-70); Platelet Count 188 K/mm3 (150-450); RBC Distribution Width CV 13.5 % (11.6-14.6); RBC Distribution Width SD 48.3 fl (35.1-43.9); Red Blood Count 3.81 M/mm3 (4.2-5.4); White Blood Count 4.3 K/mm3 (4.4-11.0)
[2021-05-06 12:39] LABS: ALB/GLOB Ratio 1.1 RATIO (0.9-2.4); AST(SGOT) 34 U/L (15-37); Alanine Aminotransfer ALT/SGPT 42 U/L (13-56); Albumin, Serum 3.7 g/dL (3.2-5.0); Alkaline Phosphatase 35 U/L (45-117); Anion Gap 3 (5-15); BUN 22 mg/dL (7-18); BUN/Creat Ratio 26.4 RATIO (10-20); Calcium,Total 8.8 mg/dL (8.5-10.1); Chloride 104 mmol/L (98-107); Creatinine, Serum 0.83 mg/dL (0.55-1.02); EST Glomerular Filtration Rate 71 mL/min (>60); Est Glom Filt Rate - Afr Amer 86 mL/min (>60); Globulin 3.3 g/dL (2.2-4.2); Glucose 81 mg/dL (74-106); Sodium Level 137 mmol/L (136-145)
== END ==
PROVIDERS: PCP Family Medicine; Referring Provider Internal Medicine Rheumatology; Visit Provider Internal Medicine Rheumatology
DX: M06.00 Rheumatoid arthritis without rheumatoid factor, unspecified site (principal); M21.40 Flat foot [pes planus] (acquired), unspecified foot; M18.11 Unilateral primary osteoarthritis of first carpometacarpal joint, right hand; Z79.899 Other long term (current) drug therapy
CPT/HCPCS: 36415; 80053; 85025

== ENCOUNTER 2021-06-06 04:46 | Emergency (ER) | payer MEDICARE, SELFPAY ==
[2021-06-06 04:49] VITALS: BP 184/100; PULSE 73; RESP 18; TEMP 36.2; O2SAT 100; BMI 23.9
--- NOTE | 2021-06-06 04:59 | RAD_ITS ---
STUDY: X-RAY CHEST REASON FOR EXAM: Female, 76 years old. Chest pain TECHNIQUE: Portable, upright, AP chest radiograph COMPARISON: None. FINDINGS: The lungs are clear and expanded. There is no demonstrated pleural abnormality. Normal size heart. Normal mediastinum and ronald. Normal visualized pulmonary arteries. Normal visualized aortic arch and descending thoracic aorta. There are diffuse degenerative changes of the visualized thoracic spine with slight dextroscoliosis. Normal visualized ribs, clavicles, and shoulders. There is no demonstrated abnormality of the visualized soft tissue structures of the upper abdomen. RAD/Chest 1 View (Portable) IMPRESSION: No acute abnormal cardiopulmonary finding. Electronically Signed: Garry Bellamy MD at 5:23 EDT Tel , Service support ,
--- NOTE | 2021-06-06 04:59 | EKG12_ITS ---
Test Reason : CP Blood Pressure : / mmHG Vent. Rate : 063 BPM Atrial Rate : 063 BPM P-R Int : 172 ms QRS Dur : 096 ms QT Int : 402 ms P-R-T Axes : 081 068 069 degrees QTc Int : 411 ms Normal sinus rhythm Septal infarct , age undetermined Abnormal ECG Confirmed by DEDRA GUTIERREZ, ALEIDA ([id number]), editor greeting card NAZIA ROCA ([id number]) on 06/08/2021 1:18:54 PM Referred By: ANISH Confirmed By:ALEIDA COLMENARES MD
[2021-06-06 05:04] VITALS: O2SAT 100
[2021-06-06 05:07] LABS: Absolute Lymphocyte Count 1.34 X10^3/uL (0.83-4.51); Absolute Neutrophil Count 2.5 X10^3/uL (2.0-7.7); Basophil# 0.03 X10^3/uL; Basophil% 0.7 % (0-1); Eosinophil# 0.17 X10^3/uL; Eosinophils% 3.9 % (0-5); Hematocrit 40.7 % (37-47); Hemoglobin 13.5 g/dL (12.0-15.0); Lymphocyte # 1.34 X10^3/ul (0.83-4.51); Lymphocyte % 30.9 % (19-41); Mean Corp Hgb Conc 33.2 g/dL (32-36); Mean Corpuscular Hgb 32.4 pg (27.0-32.0); Mean Corpuscular Volume 97.6 fL (81-99); Mean Platelet Vol. 10.6 fl (6.2-12.0); Monocyte# 0.34 X10^3/uL; Monocyte% 7.8 % (0-10); NRBC Flagged by Analyzer 0 % (0-5); Neutrophil # 2.45 X10^3/uL (2.7-7.7); Neutrophil % 56.5 % (47-70); Platelet Count 197 K/mm3 (150-450); RBC Distribution Width CV 13.4 % (11.6-14.6); RBC Distribution Width SD 47.9 fl (35.1-43.9); Red Blood Count 4.17 M/mm3 (4.2-5.4); White Blood Count 4.3 K/mm3 (4.4-11.0)
--- NOTE | 2021-06-06 05:10 | EDS_ITS ---
HPI HPI - GI History of Present Illness Chief Complaint: Abd Pain Narrative Narrative: 76-year-old female with history of IBS presenting with abdominal pain. She states this started in her lower abdomen and radiates into her epigastrium. Patient states it feels pressure-like. She states she initially had up to the bathroom and was feeling better and then came back. Since it was radiating upward her decided to call EMS in case she was having a heart attack. Patient does not have any josé miguel chest pain or shortness of breath. She has nausea without vomiting. She states that yesterday she went to her first Tuesday and had baked beans, baked potato, broccoli salad, fried fish. She states that that her IBS she probably ate too much. She denies constipation or diarrhea. Patient states that she has less gas than she usually does. She denies urinary complaints. [facility] Medical History (Updated 06/06/21 @ 04:48 by Renan Bradley) IBS (irritable bowel syndrome) Rheumatoid arthritis Home Medications aspirin 81 mg PO DAILY@0800 08/23/13 [History Last Taken Unknown] calcium carbonate-vitamin D3 [Calcium 600 + Vit D Tablet] 1 ea PO DAILY 08/23/13 [History Last Taken Unknown] hydroxychloroquine 200 mg PO BIDCM 08/23/13 [History Last Taken Unknown] meloxicam [Mobic] 15 mg PO DAILY PRN PRN 08/23/13 [History Last Taken Unknown] multivitamin with folic acid [Thera] 1 tab PO DAILY 08/23/13 [History Last Taken Unknown] pyridoxine (vitamin B6) 100 mg PO DAILY 08/23/13 [History Last Taken Unknown] vitamin E (dl, acetate) 400 units PO DAILY 08/23/13 [History Last Taken Unknown] dicyclomine 10 mg PO PRN PRN 06/06/21 [History Last Taken Unknown] folic acid 1 mg PO DAILY 06/06/21 [History Last Taken Unknown] meclizine 12.5 mg PO BID PRN 06/06/21 [History Last Taken Unknown] methotrexate sodium 2.5 mg PO QWEEK 06/06/21 [History Last Taken Unknown] metoprolol succinate 25 mg PO BID 06/06/21 [History Last Taken Unknown] Allergy/AdvReac Type Severity Reaction Status Date / Time acetaminophen [From Vicodin] Allergy Other Verified 06/06/21 04:47 amoxicillin trihydrate Allergy Rash Verified 06/06/21 04:47 [From Augmentin] hydrocodone bitartrate Allergy Other Verified 06/06/21 04:47 [From Vicodin] potassium clavulanate Allergy Rash Verified 06/06/21 04:47 [From Augmentin] diclofenac sodium AdvReac Nausea/Vom/ Verified 06/06/21 04:47 [From Voltaren] Diarrhea tramadol AdvReac Nausea Verified 06/06/21 04:47 Social History Smoking Status: Never smoker ROS ROS ED Constitutional Constitutional ED: Denies chills or fever(s) ENT ENT ED: Denies rhinorrhea or sore throat Cardiovascular Cardiovascular: Denies chest pain or palpitations Respiratory/Chest Respiratory/Chest: Denies cough or dyspnea Gastrointestinal Gastrointestinal: Reports abdominal pain and nausea; Denies constipation or diarrhea Genitourinary Genitourinary ED: Denies dysuria or hematuria Musculoskeletal Musculoskeletal: Denies arthralgias, back pain, myalgias or neck pain Integumentary Denies abscess or rash Neurologic Neurologic: Denies headache(s) or paresthesias EXAM Physical Exam Const Vital Signs: 06/06/21 04:49 06/06/21 05:04 Temperature 97.2 F L Temperature Source Temporal Pulse Rate 73 Respiratory Rate 18 Blood Pressure 184/100 H Blood Pressure Mean 128 Pulse Ox 100 100 Oxygen Delivery Method Room Air Room Air Positive well nourished General Appearance ED: NAD; Negative for pallor HEENT Reports moist mucous membranes normocephalic and atraumatic Eyes PERRL and EOMs intact bilaterally General Eye ED: Negative for pale conjunctiva or scleral icterus Resp normal respiratory effort and clear to auscultation bilaterally Cardio regular rate and regular rhythm GI Palpation: soft and tender periumbilical Back/Spine no CVA tenderness Extremity Negative for full ROM General Extremety ED: Negative for edema General Extremity: Negative for edema Neuro CN's II-XII intact bilaterally Sensorium / Orientation: alert, oriented to person, oriented to place and oriented to time Psych mental status grossly normal and thought process normal Skin General Skin Exam: Negative for jaundice or pallor Rashes: no rashes MDM MDM MDM Narrative Medical decision making narrative: Patient initially declined pain medication or antiemetics. On arrival patient had an EKG which on my interpretation shows a normal sinus rhythm at a ventricular rate of 63 bpm. Patient be given aspirin prior to arrival via EMS. Patient has no cardiac history with exception of pulmonary hypertension she is on metoprolol for this. She has no DVT or PE risk factors. Patient CBC appears to be near her normal baseline. Her renal function and electrolytes are normal. LFTs are also normal. Lipase is negative. Initial troponin is 8. Chest x-ray on my interpretation shows no acute cardiopulmonary process and the radiologist does agree. A delta troponin will be drawn. She had a CT of the abdomen pelvis with IV contrast which shows no acute intra-abdominal process. Patient currently does not have any abdominal or chest pain. For an abdominal pain standpoint I feel the patient can be discharged home. Patient will be signed out to incoming ED physician for follow-up on delta troponin. If normal she will be discharged home. Impression: 1. Abdominal pain 2. Chest pain Lab Data Labs: Laboratory Results - last 24 hr 06/06/21 06/06/21 06/06/21 04:54 04:54 04:54 WBC 4.3 L RBC 4.17 L Hgb 13.5 Hct 40.7 MCV 97.6 MCH 32.4 H MCHC 33.2 RDW Std Deviation 47.9 H RDW Coeff of Taras 13.4 Plt Count 197 MPV 10.6 Immature Gran % (Auto) 0.200 Neut % (Auto) 56.5 Lymph % (Auto) 30.9 [place] % (Auto) 7.8 Eos % (Auto) 3.9 Baso % (Auto) 0.7 Absolute Neuts (auto) 2.5 Absolute Lymphs (auto) 1.34 Nucleated RBC % 0 Sodium 137 Potassium 4.0 Chloride 103 Carbon Dioxide 30.0 Anion Gap 4 L BUN 27 H Creatinine 0.90 Estim Creat Clear Calc 49.78 Est GFR (MDRD) Af Amer 79 Est GFR (MDRD) Non-Af 65 BUN/Creatinine Ratio 30.1 H Glucose 104 Calcium 9.5 Total Bilirubin 0.30 AST 32 ALT 42 Alkaline Phosphatase 38 L Troponin I High Sens 8 Cancelled Total Protein 7.4 Albumin 3.6 Globulin 3.8 Albumin/Globulin Ratio 0.9 Lipase 259 Urine Color Urine Clarity Urine pH Ur Specific [place] Urine Protein Urine Glucose (UA) Urine Ketones Urine Occult Blood Urine Nitrite Urine Bilirubin Urine Urobilinogen Ur Leukocyte Esterase Urine RBC Urine WBC Ur Squamous Epith Cells Urine Bacteria Urine Mucus 06/06/21 05:26 WBC RBC Hgb Hct MCV MCH MCHC RDW Std Deviation RDW Coeff of Tar[place] Plt Count MPV Immature Gran % (Auto) Neut % (Auto) Lymph % (Auto) [place] % (Auto) Eos % (Auto) Baso % (Auto) Absolute Neuts (auto) Absolute Lymphs (auto) Nucleated RBC % Sodium Potassium Chloride Carbon Dioxide Anion Gap BUN Creatinine Estim Creat Clear Calc Est GFR (MDRD) Af Amer Est GFR (MDRD) Non-Af BUN/Creatinine Ratio Glucose Calcium Total Bilirubin AST ALT Alkaline Phosphatase Troponin I High Sens Total Protein Albumin Globulin Albumin/Globulin Ratio Lipase Urine Color Yellow Urine Clarity Clear Urine pH 7.0 Ur Specific [place] 1.010 Urine Protein Negative Urine Glucose (UA) Normal Urine Ketones Negative Urine Occult Blood Negative Urine Nitrite Negative Urine Bilirubin Negative Urine Urobilinogen Normal Ur Leukocyte Esterase 25 H Urine RBC 0 SEEN Urine WBC 0 SEEN Ur Squamous Epith Cells 0 SEEN Urine Bacteria 0 SEEN Urine Mucus 0 SEEN Radiography Diagnostic Testing: Radiology Impression Chest X-Ray 06/06/21 04:59 IMPRESSION: No acute abnormal cardiopulmonary finding. Electronically Signed: Garry Bellamy MD at 5:23 EDT Tel , Service support , Abdomen/Pelvis CT 06/06/21 05:37 IMPRESSION: No acute abnormal finding in the abdomen or pelvis. Electronically Signed: Garry Bellamy MD at 6:55 EDT Tel , Service support , Discharge Plan Triage Chief Complaint: Abd Pain ED Provider: Henry Trinh Dx/Rx/DC Orders Prescriptions: No Action meloxicam [Mobic] 15 MG tablet 15 mg PO DAILY PRN PRN (Reason: Pain) RF: 0 aspirin 81 MG tablet 81 mg PO DAILY@0800 RF: 0 pyridoxine (vitamin B6) 50 MG tablet 100 mg PO DAILY RF: 0 hydroxychloroquine 200 MG tablet 200 mg PO BIDCM RF: 0 calcium carbonate-vitamin D3 [Calcium 600 + D(3)] 1 EACH tablet 1 ea PO DAILY RF: 0 vitamin E (dl, acetate) 400 UNITS capsule 400 units PO DAILY RF: 0 multivitamin with folic acid [Thera] 1 TABLET tablet 1 tab PO DAILY RF: 0 meclizine 12.5 mg Tablet 12.5 mg PO BID PRN (Reason: Vertigo) RF: 0 methotrexate sodium 2.5 mg Tablet 2.5 mg PO QWEEK RF: 0 dicyclomine 20 mg tablet 10 mg PO PRN PRN (Reason: ibs) RF: 0 folic acid 1 mg Tablet 1 mg PO DAILY RF: 0 metoprolol succinate 25 mg Tablet Extended Release 24 Hr 25 mg PO BID RF: 0 Primary Care Provider: Rashid Segura
[2021-06-06 05:26] LABS: ALB/GLOB Ratio 0.9 RATIO (0.9-2.4); AST(SGOT) 32 U/L (15-37); Alanine Aminotransfer ALT/SGPT 42 U/L (13-56); Albumin, Serum 3.6 g/dL (3.2-5.0); Alkaline Phosphatase 38 U/L (45-117); Anion Gap 4 (5-15); BUN 27 mg/dL (7-18); BUN/Creat Ratio 30.1 RATIO (10-20); Calcium,Total 9.5 mg/dL (8.5-10.1); Chloride 103 mmol/L (98-107); EST Glomerular Filtration Rate 65 mL/min (>60); Est Glom Filt Rate - Afr Amer 79 mL/min (>60); Estimated Creatinine Clearance 49.78 ml/min; Globulin 3.8 g/dL (2.2-4.2); Glucose 104 mg/dL (74-106); Lipase 259 U/L (73-393); Protein, Total 7.4 g/dL (6.4-8.2); Sodium Level 137 mmol/L (136-145); Troponin-I HS 8 pg/mL (3.0-54.0)
[2021-06-06 05:34] LABS: Bacteria 0 SEEN /hpf (None Seen); Color, Urine Yellow (Yellow); Glucose, Dipstick Normal (Normal); Ketone-Dipstick Negative (Negative); Leukocyte Esterase-Dipstick 25 /ul (Negative); Mucous, Urine 0 SEEN /hpf (<or=2+); Nitrite-Dipstick Negative (Negative); Occult Blood-Urine Negative /ul (Negative); Protein-Dipstick Negative (Negative); Red Blood Cells-Urine 0 SEEN /hpf (0-5); Squamous Epithelial Cells - UA 0 SEEN /hpf (5-10); Urine Bilirubin Dipstick Negative (Negative); Urine Clarity Clear (Clear); Urine Urobilinogen Normal (Normal); White Blood Cells 0 SEEN /hpf (0-5)
--- NOTE | 2021-06-06 05:37 | CT_ITS ---
STUDY: CT ABDOMEN AND PELVIS WITH CONTRAST REASON FOR EXAM: Female, 76 years old. periumbilical pain RADIATION DOSAGE (If Supplied By Facility): CTDIvol = ( 11.21 ) mGy, DLP = ( 425.45 ) mGycm TECHNIQUE: Transaxial images were obtained from the dome of the diaphragm to the symphysis pubis without oral contrast. IV 100mL Isovue-[id number] was administered. Sagittal and coronal images were reconstructed. Individualized dose optimization techniques were used for this CT. COMPARISON: None. FINDINGS: The visualized lung bases are unremarkable. The visualized portions of the heart are within normal limits. Normal liver. Tiny posterior liver cyst versus hemangioma. Normal gallbladder and extrahepatic biliary system. Normal spleen. Normal pancreas. Normal bilateral adrenal glands. Normal right kidney. Normal left kidney. Normal visualized stomach. Normal small intestine. Normal colon. There is non-visualization of the appendix. Normal abdominal aorta. Normal inferior vena cava. Normal retroperitoneum. Normal urinary bladder. There is absence of the uterus consistent with a prior hysterectomy. Normal abdominal wall. There are diffuse degenerative changes of the visualized lumbar spine. CT/Abdomen/Pelvis W IV Cont ONLY IMPRESSION: No acute abnormal finding in the abdomen or pelvis. Electronically Signed: Garry Bellamy MD at 6:55 EDT Tel , Service support ,
[2021-06-06 08:06] LABS: Troponin-I HS 17 pg/mL (3.0-54.0)
[2021-06-06 08:20] VITALS: PULSE 59; RESP 13; O2SAT 99
[2021-06-06 08:38] VITALS: BP 150/71; PULSE 64; RESP 18; O2SAT 97
== END 2021-06-06 08:38 | disposition home or self-care (01) ==
PROVIDERS: Emergency Provider Student in an Organized Health Care Education/Training Program; PCP Family Medicine
DX: R10.9 Unspecified abdominal pain (principal); R07.9 Chest pain, unspecified; K58.9 Irritable bowel syndrome, unspecified; M06.9 Rheumatoid arthritis, unspecified; I27.20 Pulmonary hypertension, unspecified; Z79.82 Long term (current) use of aspirin; Z79.899 Other long term (current) drug therapy; Z79.1 Long term (current) use of non-steroidal anti-inflammatories (NSAID)
CPT/HCPCS: 71045; 74177; 80053; 81001; 83690; 84484; 85025; 93005; 99285; Q9967; A4216

== ENCOUNTER → 2021-07-22 10:20 | Outpatient (CLI) | payer MEDICARE, SELFPAY ==
[2021-07-22 12:07] LABS: Absolute Lymphocyte Count 0.86 X10^3/uL (0.83-4.51); Basophil# 0.02 X10^3/uL; Basophil% 0.5 % (0-1); Eosinophil# 0.14 X10^3/uL; Eosinophils% 3.2 % (0-5); Hematocrit 37.2 % (37-47); Hemoglobin 12.2 g/dL (12.0-15.0); Lymphocyte # 0.86 X10^3/ul (0.83-4.51); Lymphocyte % 19.5 % (19-41); Mean Corp Hgb Conc 32.8 g/dL (32-36); Mean Corpuscular Hgb 32.1 pg (27.0-32.0); Mean Corpuscular Volume 97.9 fL (81-99); Mean Platelet Vol. 10.6 fl (6.2-12.0); Monocyte# 0.43 X10^3/uL; Monocyte% 9.7 % (0-10); NRBC Flagged by Analyzer 0 % (0-5); Neutrophil # 2.95 X10^3/uL (2.7-7.7); Neutrophil % 66.6 % (47-70); Platelet Count 176 K/mm3 (150-450); RBC Distribution Width CV 13.1 % (11.6-14.6); RBC Distribution Width SD 46.5 fl (35.1-43.9); White Blood Count 4.4 K/mm3 (4.4-11.0)
[2021-07-22 12:21] LABS: AST(SGOT) 32 U/L (15-37); Alanine Aminotransfer ALT/SGPT 38 U/L (13-56); Albumin, Serum 3.6 g/dL (3.2-5.0); Alkaline Phosphatase 40 U/L (45-117); Anion Gap 5 (5-15); BUN 21 mg/dL (7-18); BUN/Creat Ratio 24.5 RATIO (10-20); Calcium,Total 8.8 mg/dL (8.5-10.1); Chloride 105 mmol/L (98-107); Creatinine, Serum 0.86 mg/dL (0.55-1.02); EST Glomerular Filtration Rate 68 mL/min (>60); Est Glom Filt Rate - Afr Amer 83 mL/min (>60); Globulin 3.7 g/dL (2.2-4.2); Glucose 80 mg/dL (74-106); Potassium 3.8 mmol/L (3.5-5.1); Protein, Total 7.3 g/dL (6.4-8.2); Sodium Level 140 mmol/L (136-145)
== END ==
PROVIDERS: PCP Family Medicine; Referring Provider Internal Medicine Rheumatology; Visit Provider Internal Medicine Rheumatology
DX: M06.00 Rheumatoid arthritis without rheumatoid factor, unspecified site (principal); M18.11 Unilateral primary osteoarthritis of first carpometacarpal joint, right hand; M21.40 Flat foot [pes planus] (acquired), unspecified foot; Z79.899 Other long term (current) drug therapy
CPT/HCPCS: 36415; 80053; 85025

== ENCOUNTER 2021-12-30 09:22 | Outpatient (CLI) | payer MEDICARE, SELFPAY ==
[2021-12-30 10:13] LABS: Absolute Lymphocyte Count 0.83 X10^3/uL (0.83-4.51); Absolute Neutrophil Count 4.1 X10^3/uL (2.0-7.7); Basophil# 0.03 X10^3/uL; Basophil% 0.5 % (0-1); Eosinophils% 3.5 % (0-5); Hematocrit 39.9 % (37-47); Hemoglobin 13.2 g/dL (12.0-15.0); Lymphocyte # 0.83 X10^3/ul (0.83-4.51); Lymphocyte % 14.7 % (19-41); Mean Corp Hgb Conc 33.1 g/dL (32-36); Mean Corpuscular Hgb 32.4 pg (27.0-32.0); Mean Platelet Vol. 10.6 fl (6.2-12.0); Monocyte# 0.47 X10^3/uL; Monocyte% 8.3 % (0-10); NRBC Flagged by Analyzer 0 % (0-5); Neutrophil # 4.12 X10^3/uL (2.7-7.7); Neutrophil % 72.8 % (47-70); Platelet Count 203 K/mm3 (150-450); RBC Distribution Width CV 13.3 % (11.6-14.6); RBC Distribution Width SD 47.5 fl (35.1-43.9); Red Blood Count 4.07 M/mm3 (4.2-5.4); White Blood Count 5.7 K/mm3 (4.4-11.0)
[2021-12-30 10:45] LABS: Vitamin B12 679 pg/mL (211-911)
[2021-12-30 10:51] LABS: ALB/GLOB Ratio 1.1 RATIO (0.9-2.4); AST(SGOT) 33 U/L (15-37); Alanine Aminotransfer ALT/SGPT 40 U/L (13-56); Albumin, Serum 4.1 g/dL (3.2-5.0); Alkaline Phosphatase 45 U/L (45-117); Anion Gap 2 (5-15); BUN 19 mg/dL (7-18); BUN/Creat Ratio 22.1 RATIO (10-20); Calcium,Total 9.2 mg/dL (8.5-10.1); Chloride 101 mmol/L (98-107); Cholesterol 218 mg/dL (200); Creatinine, Serum 0.86 mg/dL (0.55-1.02); EST Glomerular Filtration Rate 68 mL/min (>60); Est Glom Filt Rate - Afr Amer 83 mL/min (>60); Globulin 3.6 g/dL (2.2-4.2); Glucose 98 mg/dL (74-106); High Density Lipoprotein 96 mg/dL; Protein, Total 7.7 g/dL (6.4-8.2); Sodium Level 134 mmol/L (136-145); Triglycerides 71 mg/dL; Very Low Density Lipoprotein 14 mg/dL (5-40)
== END 2021-12-30 23:59 | disposition home or self-care (01) ==
LOC: MTLAB 09:23
PROVIDERS: PCP Family Medicine; Referring Provider Family Medicine; Visit Provider Family Medicine
DX: E53.8 Deficiency of other specified B group vitamins (principal); M06.00 Rheumatoid arthritis without rheumatoid factor, unspecified site; R73.09 Other abnormal glucose; E78.2 Mixed hyperlipidemia; M21.40 Flat foot [pes planus] (acquired), unspecified foot; M18.11 Unilateral primary osteoarthritis of first carpometacarpal joint, right hand; Z79.899 Other long term (current) drug therapy
CPT/HCPCS: 36415; 80053; 80061; 82607; 85025

== ENCOUNTER → 2022-03-31 | Outpatient (CLI) | payer MEDICARE, SELFPAY ==
[2022-03-31 17:36] LABS: Absolute Lymphocyte Count 0.87 X10^3/uL (0.83-4.51); Absolute Neutrophil Count 2.8 X10^3/uL (2.0-7.7); Basophil# 0.03 X10^3/uL; Basophil% 0.7 % (0-1); Eosinophil# 0.19 X10^3/uL; Eosinophils% 4.4 % (0-5); Hematocrit 37.9 % (37-47); Hemoglobin 12.4 g/dL (12.0-15.0); Lymphocyte # 0.87 X10^3/ul (0.83-4.51); Lymphocyte % 20.1 % (19-41); Mean Corp Hgb Conc 32.7 g/dL (32-36); Mean Corpuscular Hgb 32.1 pg (27.0-32.0); Mean Corpuscular Volume 98.2 fL (81-99); Mean Platelet Vol. 10.9 fl (6.2-12.0); Monocyte# 0.38 X10^3/uL; Monocyte% 8.8 % (0-10); NRBC Flagged by Analyzer 0 % (0-5); Neutrophil # 2.84 X10^3/uL (2.7-7.7); Neutrophil % 65.8 % (47-70); Platelet Count 183 K/mm3 (150-450); RBC Distribution Width CV 13.8 % (11.6-14.6); RBC Distribution Width SD 49.6 fl (35.1-43.9); Red Blood Count 3.86 M/mm3 (4.2-5.4); White Blood Count 4.3 K/mm3 (4.4-11.0)
[2022-03-31 18:03] LABS: ALB/GLOB Ratio 1.1 RATIO (0.9-2.4); AST(SGOT) 35 U/L (15-37); Alanine Aminotransfer ALT/SGPT 42 U/L (13-56); Albumin, Serum 3.8 g/dL (3.2-5.0); Alkaline Phosphatase 41 U/L (45-117); Anion Gap 4 (5-15); BUN 26 mg/dL (7-18); Calcium,Total 9.4 mg/dL (8.5-10.1); Chloride 105 mmol/L (98-107); Creatinine, Serum 1.04 mg/dL (0.55-1.02); EST Glomerular Filtration Rate 55 mL/min (>60); Est Glom Filt Rate - Afr Amer 66 mL/min (>60); Globulin 3.5 g/dL (2.2-4.2); Glucose 101 mg/dL (74-106); Potassium 3.8 mmol/L (3.5-5.1); Protein, Total 7.3 g/dL (6.4-8.2); Sodium Level 139 mmol/L (136-145)
== END | disposition home or self-care (01) ==
PROVIDERS: PCP Family Medicine; Referring Provider Internal Medicine Rheumatology; Visit Provider Internal Medicine Rheumatology
DX: M06.00 Rheumatoid arthritis without rheumatoid factor, unspecified site (principal); M21.40 Flat foot [pes planus] (acquired), unspecified foot; M18.11 Unilateral primary osteoarthritis of first carpometacarpal joint, right hand; Z79.899 Other long term (current) drug therapy
CPT/HCPCS: 36415; 80053; 85025

== ENCOUNTER → 2022-05-14 | Outpatient (CLI) | payer MEDICARE, SELFPAY ==
--- NOTE | 2022-05-14 13:52 | CDU_ITS ---
Reason For Study: Amaurosis fugax Rt. Velocities/BP Lt. Velocities/BP Prox CCA 72.1/13.4 cm/sec. Prox CCA 108.3/24.3 cm/sec. Mid CCA 64.3/16 cm/sec. Mid CCA 84.6/22.5 cm/sec. Dist CCA 64.3/16 cm/sec. Dist CCA 75.4/22.5 cm/sec. Prox ICA 53.9/14.7 cm/sec. Prox ICA 48.7/14.6 cm/sec. Mid ICA 72.1/23.9 cm/sec. Mid ICA 82.7/25.6 cm/sec. Dist ICA 90.4/30.4 cm/sec. Dist ICA 83.9/29.8 cm/sec. Rt. ICA/CCA = 1.41. Lt. ICA/CCA = 0.99. Prox ECA 61.7/6.9 cm/sec. Prox ECA 56.4/6.9 cm/sec. Rt. Vert. 41.9/7.8 cm/sec. Lt. Vert. 50.9/12.4 cm/sec. Right Extracranial There is intimal thickening but no significant atherosclerotic plaque noted in the right common carotid artery. There is homogeneous, smooth atherosclerotic plaque noted in the right internal carotid artery. There is intimal thickening but no significant atherosclerotic plaque noted in the right external carotid artery. Antegrade flow is noted in the right vertebral artery. Left Extracranial There is intimal thickening but no significant atherosclerotic plaque noted in the left common carotid artery. There is heterogeneous, smooth atherosclerotic plaque noted in the left internal carotid artery. There is intimal thickening but no significant atherosclerotic plaque noted in the left external carotid artery. Antegrade flow is noted in the left vertebral artery. Procedure Carotid Duplex 45548. This is a Carotid Duplex examination using B-mode, color flow and specral Doppler. Exam performed in department. VL/Carotid Duplex Ultrasound Interpretation Summary Mild (<50%) stenosis right extracranial internal carotid. Mild (<50%) stenosis left extracranial internal carotid. Flow within the vertebral arteries is antegrade bilaterally. Ordering Physician: Renan Edwards Referring Physician: Prosper Segura Performed By: Gisell Manriquez RVT
== END | disposition home or self-care (01) ==
LOC: CVS 13:45
PROVIDERS: PCP Family Medicine; Visit Provider Ophthalmology
DX: G45.3 Amaurosis fugax (principal)
CPT/HCPCS: 93880

== ENCOUNTER → 2022-07-02 | Outpatient (CLI) | payer MEDICARE, SELFPAY ==
[2022-07-02 17:46] LABS: Absolute Lymphocyte Count 0.55 X10^3/uL (0.83-4.51); Absolute Neutrophil Count 2.3 X10^3/uL (2.0-7.7); Basophil# 0.01 X10^3/uL; Basophil% 0.3 % (0-1); Eosinophil# 0.07 X10^3/uL; Eosinophils% 2.2 % (0-5); Hematocrit 36.3 % (37-47); Hemoglobin 11.6 g/dL (12.0-15.0); Lymphocyte # 0.55 X10^3/ul (0.83-4.51); Lymphocyte % 16.9 % (19-41); Mean Corpuscular Hgb 31.5 pg (27.0-32.0); Mean Corpuscular Volume 98.6 fL (81-99); Mean Platelet Vol. 10.9 fl (6.2-12.0); Monocyte# 0.28 X10^3/uL; Monocyte% 8.6 % (0-10); NRBC Flagged by Analyzer 0 % (0-5); Neutrophil # 2.33 X10^3/uL (2.7-7.7); Neutrophil % 71.7 % (47-70); POSITIVE DIFFERENTIAL YES; Platelet Count 173 K/mm3 (150-450); RBC Distribution Width CV 13.2 % (11.6-14.6); RBC Distribution Width SD 47.4 fl (35.1-43.9); Red Blood Count 3.68 M/mm3 (4.2-5.4); White Blood Count 3.3 K/mm3 (4.4-11.0)
[2022-07-02 18:18] LABS: AST(SGOT) 35 U/L (15-37); Alanine Aminotransfer ALT/SGPT 38 U/L (13-56); Albumin, Serum 3.7 g/dL (3.2-5.0); Alkaline Phosphatase 41 U/L (45-117); Anion Gap 7 (5-15); BUN 20 mg/dL (7-18); BUN/Creat Ratio 21.9 RATIO (10-20); Calcium,Total 9.2 mg/dL (8.5-10.1); Chloride 104 mmol/L (98-107); Creatinine, Serum 0.92 mg/dL (0.55-1.02); EST Glomerular Filtration Rate 63 mL/min (>60); Est Glom Filt Rate - Afr Amer 77 mL/min (>60); Globulin 3.6 g/dL (2.2-4.2); Glucose 142 mg/dL (74-106); Potassium 3.9 mmol/L (3.5-5.1); Protein, Total 7.3 g/dL (6.4-8.2); Sodium Level 139 mmol/L (136-145)
[2022-07-02 18:21] LABS: Differential Indicated SCAN CRITERIA MET
[2022-07-02 18:34] LABS: Anisocytosis RARE; Macrocytosis RARE; Platelet Estimate ADEQUATE (ADEQ); Red Cell Morphology N CHROM NORMAL (NORM C&C)
[2022-07-05 13:39] LABS: Pathologist Review Reviewed
== END | disposition home or self-care (01) ==
LOC: MTLAB 14:36
PROVIDERS: PCP Family Medicine; Referring Provider Internal Medicine Rheumatology; Visit Provider Internal Medicine Rheumatology
DX: M06.00 Rheumatoid arthritis without rheumatoid factor, unspecified site (principal); M21.40 Flat foot [pes planus] (acquired), unspecified foot; M18.11 Unilateral primary osteoarthritis of first carpometacarpal joint, right hand; Z79.899 Other long term (current) drug therapy
CPT/HCPCS: 36415; 80053; 85025

== ENCOUNTER 2022-09-05 18:13 | Emergency (ER) | payer MEDICARE, SELFPAY ==
[2022-09-05 18:14] VITALS: BP 177/91; PULSE 75; RESP 16; TEMP 36.6; O2SAT 98; BMI 23.8
--- NOTE | 2022-09-05 18:28 | CT_ITS ---
STUDY: CT BRAIN WITHOUT CONTRAST REASON FOR EXAM: Female, 77 years old. dizziness RADIATION DOSAGE (If Supplied By Facility): CTDIvol = ( 44.99 ) mGy, DLP = ( 779.24 ) mGycm TECHNIQUE: Transaxial CT imaging of the brain was performed without administration of intravenous contrast material. Individualized dose optimization techniques were used for this CT. COMPARISON: 08/23/2013 FINDINGS: Normal soft tissue structures. Normal calvarium. There is mild cerebral atrophy with widening of the extra-axial spaces and ventricular dilatation. There are areas of decreased attenuation within the white matter tracts of the supratentorial brain, consistent with microvascular disease changes. There are small punctate calcifications of the basal ganglia which are seen in the aging brain as a normal variant. Normal brainstem. Normal cerebellum. There is no intracranial hemorrhage. There are no findings of an acute ischemic infarction. Normal visualized paranasal sinuses. CT/Brain/Head without Contrast IMPRESSION: Chronic involutional changes of the brain. Electronically Signed: Heath Smalls MD at 19:00 EST ,
--- NOTE | 2022-09-05 18:28 | EKG12_ITS ---
Test Reason : DIZZY Blood Pressure : / mmHG Vent. Rate : 076 BPM Atrial Rate : 076 BPM P-R Int : 132 ms QRS Dur : 084 ms QT Int : 388 ms P-R-T Axes : 076 055 036 degrees QTc Int : 436 ms Normal sinus rhythm Nonspecific ST abnormality Abnormal ECG Confirmed by ROBBI GUTIERREZ, LELIA ([id number]), content editor NAZIA ROCA ([id number]) on 09/08/2022 11:03:27 AM Referred By: NORM Confirmed By:LELIA CULP MD
[2022-09-05] MEDS: 0.9% Normal Saline 1,000 ML 999 ML IV (18:35)
--- NOTE | 2022-09-05 18:36 | ED.RN ---
Did not give zofran as patient received from [facility] and not vomiting or nauseated at this time. Will leave on the MAR in case she needs it later. Provider aware.
[2022-09-05 18:41] LABS: Absolute Lymphocyte Count 1.15 X10^3/uL (0.83-4.51); Absolute Neutrophil Count 4.5 X10^3/uL (2.0-7.7); Basophil# 0.02 X10^3/uL; Basophil% 0.3 % (0-1); Eosinophil# 0.11 X10^3/uL; Eosinophils% 1.8 % (0-5); Hematocrit 36.3 % (37-47); Hemoglobin 12.2 g/dL (12.0-15.0); Lymphocyte # 1.15 X10^3/ul (0.83-4.51); Lymphocyte % 18.3 % (19-41); Mean Corp Hgb Conc 33.6 g/dL (32-36); Mean Corpuscular Hgb 32.5 pg (27.0-32.0); Mean Corpuscular Volume 96.8 fL (81-99); Mean Platelet Vol. 10.7 fl (6.2-12.0); Monocyte# 0.49 X10^3/uL; Monocyte% 7.8 % (0-10); NRBC Flagged by Analyzer 0 % (0-5); Neutrophil # 4.49 X10^3/uL (2.7-7.7); Neutrophil % 71.6 % (47-70); Platelet Count 198 K/mm3 (150-450); RBC Distribution Width CV 13.3 % (11.6-14.6); RBC Distribution Width SD 47.5 fl (35.1-43.9); Red Blood Count 3.75 M/mm3 (4.2-5.4); White Blood Count 6.3 K/mm3 (4.4-11.0)
--- NOTE | 2022-09-05 18:46 | EX.ED.DYSGE1 ---
HPI <OZIEL Cortez - Last Filed: 09/05/22 20:55> History of Present Illness Chief Complaint: Dizziness Narrative Narrative: 77-year-old female with PMH of HTN presents with dizziness. She felt fine this morning and was in the kitchen making [place] candy with her family around 2 PM when she started to feel dizzy. She describes it as a sensation she is moving when she is not. She also felt nauseated and has vomited once. She took meclizine she had on hand from vertigo years ago but is not sure she kept it down. When she stood to walk to the bathroom she again experienced the dizziness prompting her to come in. She has no headache or visual or speech changes. PFSH <OZIEL Cortez - Last Filed: 09/05/22 20:55> [facility] Medical History (Updated 09/05/22 @ 20:36 by OZIEL Cortez) IBS (irritable bowel syndrome) Rheumatoid arthritis Home Medications aspirin 81 mg tablet,delayed release 81 mg PO DAILY@0800 08/23/13 [History Last Taken Unknown] calcium carbonate 600 mg-vitamin D3 10 mcg (400 unit) tablet (Calcium 600 + D(3)) 1 ea PO DAILY 08/23/13 [History Last Taken Unknown] hydroxychloroquine 200 mg tablet 200 mg PO BIDCM 08/23/13 [History Last Taken Unknown] meloxicam 15 mg tablet (Mobic) 15 mg PO DAILY PRN PRN Pain 08/23/13 [History Last Taken Unknown] multivitamin with folic acid 400 mcg tablet (Thera) 1 tab PO DAILY 08/23/13 [History Last Taken Unknown] pyridoxine (vitamin B6) 50 mg tablet 100 mg PO DAILY 08/23/13 [History Last Taken Unknown] vitamin E (dl, acetate) 180 mg (400 unit) capsule 400 units PO DAILY 08/23/13 [History Last Taken Unknown] dicyclomine 20 mg tablet 10 mg PO PRN PRN ibs 06/06/21 [History Last Taken Unknown] folic acid 1 mg tablet 1 mg PO DAILY 06/06/21 [History Last Taken Unknown] meclizine 12.5 mg tablet 12.5 mg PO BID PRN Vertigo 06/06/21 [History Last Taken Unknown] methotrexate sodium 2.5 mg tablet 2.5 mg PO QWEEK 06/06/21 [History Last Taken Unknown] metoprolol succinate 25 mg tablet,extended release 24 hr 25 mg PO BID 06/06/21 [History Last Taken Unknown] diazepam 5 mg tablet (Valium) 5 mg PO TID #5 tabs 09/05/22 [Rx Last Taken Unknown] Allergy/AdvReac Type Severity Reaction Status Date / Time acetaminophen [From Vicodin] Allergy Other Verified 06/06/21 04:47 amoxicillin trihydrate Allergy Rash Verified 06/06/21 04:47 [From Augmentin] hydrocodone bitartrate Allergy Other Verified 06/06/21 04:47 [From Vicodin] potassium clavulanate Allergy Rash Verified 06/06/21 04:47 [From Augmentin] diclofenac sodium AdvReac Nausea/Vom/ Verified 06/06/21 04:47 [From Voltaren] Diarrhea tramadol AdvReac Nausea Verified 06/06/21 04:47 Social History Smoking Status: Never smoker ROS <OZIEL Cortez - Last Filed: 09/05/22 20:55> ROS ED ROS Narrative Constitutional: Negative for fever, chills, malaise. Eyes: Negative for visual change. ENT: Negative for sore throat, ear pain, rhinorrhea. CVS: Negative for palpitations, chest pain, syncope. Respiratory: Negative for shortness of breath, cough, orthopnea. GI: Positive for nausea, vomiting. Negative for abdominal pain, diarrhea, constipation, melena, hematochezia. : Negative for dysuria, hematuria or frequency. Neuro: Negative for headache, motor/sensory dysfunction. Skin: Negative for rash, abscess, or wound. Musc: Negative for joint pain, swelling, trauma. Heme: Negative for easy bruising, bleeding, lymphadenopathy. EXAM <OZIEL Cortez - Last Filed: 09/05/22 20:55> Physical Exam Narrative Exam Narrative: CONST: Patient sitting in no acute distress. EYES: Normal inspection. PERRLA, EOMI, several beats of slow horizontal nystagmus with lateral gaze. ENT: Normal inspection, moist mucous membranes. NECK: Normal inspection. RESP: No respiratory distress, CTAB. CVS: Regular rate and rhythm, no murmur, no gallop. ABD: Soft and nontender, no guarding or rebound, nondistended. SKIN: Color normal, no rash, warm, dry, intact. EXTREMITIES: Normal appearance, no pedal edema. NEURO: Oriented x4. Face symmetric, 5/5 upper and lower extremity strength, normal sensation. No upper or lower extremity drift, normal [id number] and heel to anne bilaterally. No aphasia or dysarthria, no extinction. PSYCH: Normal affect. Const Vital Signs: 09/05/22 18:14 09/05/22 21:34 Temperature 97.8 F Temperature Source Temporal Pulse Rate 75 78 Respiratory Rate 16 18 Blood Pressure 177/91 H Blood Pressure Mean 119 Pulse Ox 98 98 Oxygen Delivery Method Room Air <Dr. Bassam Leyva MD - Last Filed: 09/05/22 23:24> Physical Exam Const Vital Signs: 09/05/22 18:14 09/05/22 21:34 Temperature 97.8 F Temperature Source Temporal Pulse Rate 75 78 Respiratory Rate 16 18 Blood Pressure 177/91 H Blood Pressure Mean 119 Pulse Ox 98 98 Oxygen Delivery Method Room Air MDM <OZIEL Cortez - Last Filed: 09/05/22 20:55> [facility] MDM Narrative Medical decision making narrative: Patient describes vertigo with head movements or walking. She has no associated neurological symptoms. She appears well and nontoxic. BP slightly elevated 177/91, otherwise normal vital signs. She does have slow beat horizontal nystagmus with lateral gaze with an otherwise normal neurological exam with NIH of 0. EKG is sinus rhythm with no ischemic changes. Screening labs and CT of the brain are all unremarkable. Patient was given IV fluids here and had received Zofran by EMS. Attending performed Marva manuever which significantly improved her symptoms. Patient ambulated well but did feel minor recurrence of symptoms so will be treated with Valium and make sure she is feeling improved before being discharged home with a prescription. Lab Data Attestation: I reviewed the patient's lab results. Labs: Laboratory Results - last 24 hr 09/05/22 09/05/22 17:42 17:42 WBC 6.3 RBC 3.75 L Hgb 12.2 Hct 36.3 L MCV 96.8 MCH 32.5 H MCHC 33.6 RDW Std Deviation 47.5 H RDW Coeff of Taras 13.3 Plt Count 198 MPV 10.7 Immature Gran % (Auto) 0.200 Neut % (Auto) 71.6 H Lymph % (Auto) 18.3 L Esmeralda % (Auto) 7.8 Eos % (Auto) 1.8 Baso % (Auto) 0.3 Absolute Neuts (auto) 4.5 Absolute Lymphs (auto) 1.15 Nucleated RBC % 0 Sodium 136 Potassium 3.6 Chloride 103 Carbon Dioxide 27.0 Anion Gap 6 BUN 24 H Creatinine 0.77 Estim Creat Clear Calc 44.10 Est GFR (MDRD) Af Amer 94 Est GFR (MDRD) Non-Af 78 BUN/Creatinine Ratio 31.3 H Glucose 126 H Calcium 8.8 Radiography Diagnostic Testing: Clinical Impression(s) from Imaging Studies Brain CT 09/05/22 18:28 IMPRESSION: Chronic involutional changes of the brain. Electronically Signed: Heath Smalls MD at 19:00 EST , EKG Initial EKG: Attestation: I personally reviewed and interpreted this EKG as follows: Interpretation: Sinus Rhythm Comments: Normal sinus rhythm at 76 ms, nonspecific ST changes, no acute ischemia DE interval 132 ms, QRS duration 84 ms, QTC 436 ms <Dr. Bassam Leyva MD - Last Filed: 09/05/22 23:24> [facility] Narrative Medical decision making narrative: Patient describes vertigo with head movements or walking. She has no associated neurological symptoms. She appears well and nontoxic. BP slightly elevated 177/91, otherwise normal vital signs. She does have slow beat horizontal nystagmus with lateral gaze with an otherwise normal neurological exam with NIH of 0. EKG is sinus rhythm with no ischemic changes. Screening labs and CT of the brain are all unremarkable. Patient was given IV fluids here and had received Zofran by EMS. Attending performed Marva manuever which significantly improved her symptoms. Patient ambulated well but did feel minor recurrence of symptoms so will be treated with Valium and make sure she is feeling improved before being discharged home with a prescription. I have personally performed a face to face assessment of the patient and have reviewed the ISIAH Note. I performed a substantive portion of the visit including all aspects of the following. My aaron findings include: History is remarkable for vertigo. She denies double vision, blurred vision loss of vision. [place] ringing in ears or decreased hearing. She does report nausea and dizziness with changing positions and specifically from supine to upright. Turning her head to the right or left does not elaborate or exacerbate her symptoms. She denies trouble with speech or swallowing. She denies paresthesia, anesthesia or motor weakness upper or lower extremity. She denies cardiac respiratory symptoms. Exam is H EENT exam is remarkable for bilateral hearing aids. There is no evidence of cerumen impaction. TMs are normal. Cranials 2 through 12 are intact. Neck is supple. There is no carotid bruit. Heart is regular. There is no murmur, gallop or rub. Lungs are clear to auscultation. Motor or sensory intact. There is no clonus Babinski sign. There is no dysmetria. The eye askew test was negative. Romberg test with eyes open and close was negative. Gait was observed and is not ataxic. Patient's tandem gait was normal. Patient did complain of dizziness when she giorgi from supine to sitting position. She does have nystagmus noted. [place]-Hallpike maneuver was performed and patient had symptoms when she went from supine to upright position with nystagmus noted. Medical Decision Making patient initially seen by nurse practitioner and work-up was undertaken for concern for possible stroke in light of her medical problems and age. In my opinion based on patient history and physical exam and specifically a positive [place]-Hallpike maneuver she has benign positional vertigo, paroxysmal. Marva maneuver was performed. When patient was placed in upright position with head/neck flexed 15 degrees she developed symptoms with nystagmus. The nystagmus fatigues after approximately 10 minutes. Her dry heaves and vertigo resolved. Had nurse ambulate patient 15 minutes later. She complained of mild nausea with no vertiginous symptoms. She was given dose of Valium in the emergency department and discharged with short course of Valium. Patient was instructed to discontinue taking the meclizine. Other additions or changes: Patient was discharged and treated for benign paroxysmal positional vertigo. Marva maneuver took a total of 18 minutes. Lab Data Labs: Laboratory Results - last 24 hr 09/05/22 09/05/22 17:42 17:42 WBC 6.3 RBC 3.75 L Hgb 12.2 Hct 36.3 L MCV 96.8 MCH 32.5 H MCHC 33.6 RDW Std Deviation 47.5 H RDW Coeff of Taras 13.3 Plt Count 198 MPV 10.7 Immature Gran % (Auto) 0.200 Neut % (Auto) 71.6 H Lymph % (Auto) 18.3 L Esmeralda % (Auto) 7.8 Eos % (Auto) 1.8 Baso % (Auto) 0.3 Absolute Neuts (auto) 4.5 Absolute Lymphs (auto) 1.15 Nucleated RBC % 0 Sodium 136 Potassium 3.6 Chloride 103 Carbon Dioxide 27.0 Anion Gap 6 BUN 24 H Creatinine 0.77 Estim Creat Clear Calc 44.10 Est GFR (MDRD) Af Amer 94 Est GFR (MDRD) Non-Af 78 BUN/Creatinine Ratio 31.3 H Glucose 126 H Calcium 8.8 Radiography Diagnostic Testing: Clinical Impression(s) from Imaging Studies Brain CT 09/05/22 18:28 IMPRESSION: Chronic involutional changes of the brain. Electronically Signed: Heath Smalls MD at 19:00 EST , Discharge Plan Triage Chief Complaint: Dizziness ED Midlevel Provider: Jyoti Hazel ED Provider: Bassam Leyva Dx/Rx/DC Orders Clinical Impression: Benign paroxysmal positional vertigo Instructions: ED BPV Vertigo Prescriptions: New diazepam [Valium] 5 mg tablet 5 mg PO TID Qty: 5 0RF No Action meloxicam [Mobic] 15 MG tablet 15 mg PO DAILY PRN PRN (Reason: Pain) aspirin 81 MG tablet 81 mg PO DAILY@0800 pyridoxine (vitamin B6) 50 MG tablet 100 mg PO DAILY hydroxychloroquine 200 MG tablet 200 mg PO BIDCM calcium carbonate-vitamin D3 [Calcium 600 + D(3)] 1 EACH tablet 1 ea PO DAILY vitamin E (dl, acetate) 400 UNITS capsule 400 units PO DAILY multivitamin with folic acid [Thera] 1 TABLET tablet 1 tab PO DAILY meclizine 12.5 mg Tablet 12.5 mg PO BID PRN (Reason: Vertigo) methotrexate sodium 2.5 mg Tablet 2.5 mg PO QWEEK dicyclomine 20 mg tablet 10 mg PO PRN PRN (Reason: ibs) Label Comments: 1/2 tablet by mouth as directed 10 mg prn folic acid 1 mg Tablet 1 mg PO DAILY metoprolol succinate 25 mg Tablet Extended Release 24 Hr 25 mg PO BID Primary Care Provider: Rashid Segura Referrals: Rashid Segura MD [Primary Care Provider] - Activity Restrictions/Additional Instructions: Your blood work and CAT scan of your brain all appeared normal. I think you are having vertigo caused by an inner ear problem. The procedure the doctor did try to shift the crystals in your ear back into the correct position to alleviate the vertigo or dizziness. I prescribed Valium which you take as needed if this dizziness recurs and you need to follow-up with your primary care doctor. If any symptoms worsen before then come back to the ER. Disposition Disposition: Home, Self Care Discharge Date/Time: 09/05/22 21:38
[2022-09-05 18:55] LABS: Anion Gap 6 (5-15); BUN 24 mg/dL (7-18); BUN/Creat Ratio 31.3 RATIO (10-20); Calcium,Total 8.8 mg/dL (8.5-10.1); Chloride 103 mmol/L (98-107); Creatinine, Serum 0.77 mg/dL (0.55-1.02); EST Glomerular Filtration Rate 78 mL/min (>60); Est Glom Filt Rate - Afr Amer 94 mL/min (>60); Glucose 126 mg/dL (74-106); Potassium 3.6 mmol/L (3.5-5.1); Sodium Level 136 mmol/L (136-145)
[2022-09-05] MEDS: Ondansetron 4 MG/2 ML Vial IV (20:26)
--- NOTE | 2022-09-05 20:55 | NURSING ---
ambulated patient in du from room 3 to restroom. pt states that she didn't feel dizzy but c/o nausea. also states that her head just feels 'goofy.' Dr Leyva aware.
[2022-09-05] MEDS: diazePAM 2 MG Tablet PO (21:07)
[2022-09-05] MEDS: Ondansetron ODT 4 MG Tablet PO (21:07)
[2022-09-05 21:34] VITALS: PULSE 78; RESP 18; O2SAT 98
== END 2022-09-05 21:38 | disposition home or self-care (01) ==
PROVIDERS: Physician Assistant; Emergency Provider Emergency Medicine; PCP Family Medicine; Visit Provider Emergency Medicine
DX: H81.10 Benign paroxysmal vertigo, unspecified ear (principal)
CPT/HCPCS: 70450; 80048; 85025; 93005; 96361; 96374; 99285; J7030; A4216; J2405

== ENCOUNTER → 2022-09-29 | Outpatient (CLI) | payer MEDICARE, SELFPAY ==
[2022-09-29 15:23] LABS: Absolute Lymphocyte Count 0.82 X10^3/uL (0.83-4.51); Absolute Neutrophil Count 3.8 X10^3/uL (2.0-7.7); Basophil# 0.03 X10^3/uL; Basophil% 0.6 % (0-1); Eosinophil# 0.13 X10^3/uL; Eosinophils% 2.5 % (0-5); Hematocrit 36.8 % (37-47); Lymphocyte # 0.82 X10^3/ul (0.83-4.51); Lymphocyte % 15.7 % (19-41); Mean Corp Hgb Conc 32.6 g/dL (32-36); Mean Corpuscular Hgb 32.3 pg (27.0-32.0); Mean Corpuscular Volume 99.2 fL (81-99); Mean Platelet Vol. 10.9 fl (6.2-12.0); Monocyte% 7.6 % (0-10); NRBC Flagged by Analyzer 0 % (0-5); Neutrophil # 3.83 X10^3/uL (2.7-7.7); Neutrophil % 73.2 % (47-70); Platelet Count 190 K/mm3 (150-450); RBC Distribution Width CV 13.5 % (11.6-14.6); RBC Distribution Width SD 48.5 fl (35.1-43.9); Red Blood Count 3.71 M/mm3 (4.2-5.4); White Blood Count 5.2 K/mm3 (4.4-11.0)
[2022-09-29 15:45] LABS: ALB/GLOB Ratio 1.1 RATIO (0.9-2.4); AST(SGOT) 34 U/L (15-37); Alanine Aminotransfer ALT/SGPT 43 U/L (13-56); Albumin, Serum 3.6 g/dL (3.2-5.0); Alkaline Phosphatase 39 U/L (45-117); Anion Gap 6 (5-15); BUN 24 mg/dL (7-18); BUN/Creat Ratio 25.2 RATIO (10-20); Chloride 103 mmol/L (98-107); Creatinine, Serum 0.95 mg/dL (0.55-1.02); EST Glomerular Filtration Rate 60 mL/min (>60); Est Glom Filt Rate - Afr Amer 73 mL/min (>60); Globulin 3.2 g/dL (2.2-4.2); Glucose 89 mg/dL (74-106); Potassium 4.1 mmol/L (3.5-5.1); Protein, Total 6.8 g/dL (6.4-8.2); Sodium Level 137 mmol/L (136-145)
== END | disposition home or self-care (01) ==
LOC: MTLAB 11:00
PROVIDERS: PCP Family Medicine; Referring Provider Internal Medicine Rheumatology; Visit Provider Internal Medicine Rheumatology
DX: M06.00 Rheumatoid arthritis without rheumatoid factor, unspecified site (principal); M15.9 Polyosteoarthritis, unspecified; Z79.899 Other long term (current) drug therapy
CPT/HCPCS: 36415; 80053; 85025

== ENCOUNTER → 2022-12-23 | Outpatient (CLI) | payer MEDICARE, SELFPAY ==
[2022-12-23 12:38] LABS: Absolute Lymphocyte Count 0.84 X10^3/uL (0.83-4.51); Absolute Neutrophil Count 2.5 X10^3/uL (2.0-7.7); Basophil# 0.03 X10^3/uL; Basophil% 0.8 % (0-1); Eosinophil# 0.16 X10^3/uL; Eosinophils% 4.1 % (0-5); Hematocrit 40.2 % (37-47); Hemoglobin 13.2 g/dL (12.0-15.0); Lymphocyte # 0.84 X10^3/ul (0.83-4.51); Lymphocyte % 21.4 % (19-41); Mean Corp Hgb Conc 32.8 g/dL (32-36); Mean Corpuscular Hgb 32.2 pg (27.0-32.0); Mean Platelet Vol. 10.4 fl (6.2-12.0); Monocyte# 0.34 X10^3/uL; Monocyte% 8.7 % (0-10); NRBC Flagged by Analyzer 0 % (0-5); Neutrophil # 2.53 X10^3/uL (2.7-7.7); Neutrophil % 64.5 % (47-70); Platelet Count 215 K/mm3 (150-450); RBC Distribution Width CV 13.3 % (11.6-14.6); RBC Distribution Width SD 47.5 fl (35.1-43.9); White Blood Count 3.9 K/mm3 (4.4-11.0)
[2022-12-23 12:58] LABS: Vitamin B12 608 pg/mL (211-911)
[2022-12-23 13:16] LABS: ALB/GLOB Ratio 1.1 RATIO (0.9-2.4); AST(SGOT) 40 U/L (15-37); Alanine Aminotransfer ALT/SGPT 45 U/L (13-56); Albumin, Serum 3.9 g/dL (3.2-5.0); Alkaline Phosphatase 45 U/L (45-117); Anion Gap 7 (5-15); BUN 17 mg/dL (7-18); BUN/Creat Ratio 19.4 RATIO (10-20); Calcium,Total 9.1 mg/dL (8.5-10.1); Chloride 101 mmol/L (98-107); Cholesterol 202 mg/dL (200); Creatinine, Serum 0.88 mg/dL (0.55-1.02); EST Glomerular Filtration Rate 67 mL/min (>60); Est Glom Filt Rate - Afr Amer 80 mL/min (>60); Globulin 3.5 g/dL (2.2-4.2); Glucose 87 mg/dL (74-106); High Density Lipoprotein 89 mg/dL; Protein, Total 7.4 g/dL (6.4-8.2); Sodium Level 135 mmol/L (136-145); Thyroid Stim Hormone (TSH) 2.77 uIU/mL (0.358-3.74); Triglycerides 84 mg/dL; Very Low Density Lipoprotein 17 mg/dL (5-40)
== END | disposition home or self-care (01) ==
PROVIDERS: PCP Family Medicine; Referring Provider Family Medicine; Visit Provider Family Medicine
DX: M06.00 Rheumatoid arthritis without rheumatoid factor, unspecified site (principal); M21.40 Flat foot [pes planus] (acquired), unspecified foot; M18.11 Unilateral primary osteoarthritis of first carpometacarpal joint, right hand; H81.10 Benign paroxysmal vertigo, unspecified ear; R53.83 Other fatigue; Z79.899 Other long term (current) drug therapy; E53.8 Deficiency of other specified B group vitamins; E78.2 Mixed hyperlipidemia
CPT/HCPCS: 36415; 80053; 80061; 82607; 84443; 85025

== ENCOUNTER → 2023-02-25 | Outpatient (CLI) | payer MEDICARE, SELFPAY ==
[2023-02-25 15:25] LABS: Absolute Lymphocyte Count 1.12 X10^3/uL (0.83-4.51); Absolute Neutrophil Count 2.2 X10^3/uL (2.0-7.7); Basophil# 0.03 X10^3/uL; Basophil% 0.8 % (0-1); Eosinophil# 0.19 X10^3/uL; Eosinophils% 4.9 % (0-5); Hematocrit 38.5 % (37-47); Hemoglobin 12.4 g/dL (12.0-15.0); Lymphocyte # 1.12 X10^3/ul (0.83-4.51); Lymphocyte % 28.8 % (19-41); Mean Corp Hgb Conc 32.2 g/dL (32-36); Mean Corpuscular Hgb 31.6 pg (27.0-32.0); Mean Platelet Vol. 10.5 fl (6.2-12.0); Monocyte# 0.32 X10^3/uL; Monocyte% 8.2 % (0-10); NRBC Flagged by Analyzer 0 % (0-5); Neutrophil # 2.22 X10^3/uL (2.7-7.7); Platelet Count 204 K/mm3 (150-450); RBC Distribution Width CV 13.2 % (11.6-14.6); RBC Distribution Width SD 47.5 fl (35.1-43.9); Red Blood Count 3.93 M/mm3 (4.2-5.4); White Blood Count 3.9 K/mm3 (4.4-11.0)
== END | disposition home or self-care (01) ==
LOC: MTLAB 12:45
PROVIDERS: PCP Family Medicine; Referring Provider Internal Medicine Rheumatology; Visit Provider Internal Medicine Rheumatology
DX: M06.00 Rheumatoid arthritis without rheumatoid factor, unspecified site (principal); M19.041 Primary osteoarthritis, right hand; Z79.899 Other long term (current) drug therapy
CPT/HCPCS: 36415; 80053; 85025

== ENCOUNTER → 2023-03-04 | Outpatient (CLI) | payer MEDICARE, SELFPAY ==
[2023-03-04 16:11] LABS: AST(SGOT) 39 U/L (15-37); Alanine Aminotransfer ALT/SGPT 41 U/L (13-56); Albumin, Serum 3.7 g/dL (3.2-5.0); Alkaline Phosphatase 43 U/L (45-117); Anion Gap 6 (5-15); BUN 17 mg/dL (7-18); BUN/Creat Ratio 19.1 RATIO (10-20); Calcium,Total 9.5 mg/dL (8.5-10.1); Chloride 104 mmol/L (98-107); Creatinine, Serum 0.89 mg/dL (0.55-1.02); EST Glomerular Filtration Rate 65 mL/min (>60); Est Glom Filt Rate - Afr Amer 79 mL/min (>60); Globulin 3.7 g/dL (2.2-4.2); Glucose 89 mg/dL (74-106); Protein, Total 7.4 g/dL (6.4-8.2); Sodium Level 138 mmol/L (136-145)
== END | disposition home or self-care (01) ==
LOC: MTLAB 12:03
PROVIDERS: PCP Family Medicine; Referring Provider Internal Medicine Rheumatology; Visit Provider Internal Medicine Rheumatology
DX: M06.00 Rheumatoid arthritis without rheumatoid factor, unspecified site (principal); M19.041 Primary osteoarthritis, right hand; Z79.899 Other long term (current) drug therapy
CPT/HCPCS: 80053

== ENCOUNTER → 2023-04-28 | Outpatient (CLI) | payer MEDICARE, SELFPAY ==
[2023-04-28 15:12] LABS: Absolute Neutrophil Count 2.4 X10^3/uL (2.0-7.7); Basophil# 0.02 X10^3/uL; Basophil% 0.5 % (0-1); Eosinophil# 0.18 X10^3/uL; Eosinophils% 4.3 % (0-5); Hematocrit 36.7 % (37-47); Hemoglobin 12.3 g/dL (12.0-15.0); Lymphocyte % 26.6 % (19-41); Mean Corp Hgb Conc 33.5 g/dL (32-36); Mean Corpuscular Hgb 32.6 pg (27.0-32.0); Mean Corpuscular Volume 97.3 fL (81-99); Mean Platelet Vol. 10.5 fl (6.2-12.0); Monocyte# 0.44 X10^3/uL; Monocyte% 10.6 % (0-10); NRBC Flagged by Analyzer 0 % (0-5); Neutrophil # 2.39 X10^3/uL (2.7-7.7); Neutrophil % 57.8 % (47-70); Platelet Count 181 K/mm3 (150-450); RBC Distribution Width CV 13.4 % (11.6-14.6); RBC Distribution Width SD 47.8 fl (35.1-43.9); Red Blood Count 3.77 M/mm3 (4.2-5.4); White Blood Count 4.1 K/mm3 (4.4-11.0)
[2023-04-28 16:32] LABS: ALB/GLOB Ratio 1.1 RATIO (0.9-2.4); AST(SGOT) 41 U/L (15-37); Alanine Aminotransfer ALT/SGPT 43 U/L (13-56); Albumin, Serum 3.8 g/dL (3.2-5.0); Alkaline Phosphatase 39 U/L (45-117); Anion Gap 5 (5-15); BUN 16 mg/dL (7-18); BUN/Creat Ratio 18.4 RATIO (10-20); Calcium,Total 9.1 mg/dL (8.5-10.1); Chloride 102 mmol/L (98-107); Creatinine, Serum 0.87 mg/dL (0.55-1.02); EST Glomerular Filtration Rate 67 mL/min (>60); Est Glom Filt Rate - Afr Amer 81 mL/min (>60); Globulin 3.5 g/dL (2.2-4.2); Glucose 75 mg/dL (74-106); Potassium 3.8 mmol/L (3.5-5.1); Protein, Total 7.3 g/dL (6.4-8.2); Sodium Level 135 mmol/L (136-145)
== END | disposition home or self-care (01) ==
LOC: MTLAB 13:32
PROVIDERS: PCP Family Medicine; Visit Provider Internal Medicine Rheumatology
DX: M19.041 Primary osteoarthritis, right hand (principal); M06.00 Rheumatoid arthritis without rheumatoid factor, unspecified site; Z79.899 Other long term (current) drug therapy
CPT/HCPCS: 36415; 80053; 85025

== ENCOUNTER → 2023-06-20 | Outpatient (CLI) | payer MEDICARE, SELFPAY ==
--- NOTE | 2023-06-20 07:54 | US_ITS ---
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 TECHNIQUE: Real-time ultrasound of the right upper quadrant with image documentation. COMPARISON: CT scan abdomen and pelvis 06/06/2021. FINDINGS: LIVER: The liver measures 16.1 cm. There is normal echotexture. No intrahepatic biliary ductal dilation. GALLBLADDER: The gallbladder wall measures 1.3 mm. No shadowing gallstone. No pericholecystic fluid. Negative sonographic Alonso''s sign. COMMON BILE DUCT: The common bile measures 1.9 mm. The proximal common bile duct is within normal limits for the patient''s age. PANCREAS: Unremarkable as visualized. No focal abnormality is demonstrated in the pancreas. No pancreatic ductal dilatation. RIGHT KIDNEY: The right kidney measures 11.1 x 4.7 x 3.8 cm. There is no hydronephrosis. No shadowing calculus. No focal lesion or perinephric collection is demonstrated. US/Abdomen Limited IMPRESSION: No acute findings in the right upper quadrant. Electronically Signed: Wade Priest MD at 3:32 EDT ,
== END | disposition home or self-care (01) ==
PROVIDERS: PCP Family Medicine; Referring Provider Internal Medicine Rheumatology; Visit Provider Internal Medicine Rheumatology
DX: M06.00 Rheumatoid arthritis without rheumatoid factor, unspecified site (principal); M19.041 Primary osteoarthritis, right hand; M47.892 Other spondylosis, cervical region; M18.11 Unilateral primary osteoarthritis of first carpometacarpal joint, right hand; H81.10 Benign paroxysmal vertigo, unspecified ear; M21.42 Flat foot [pes planus] (acquired), left foot; Z79.899 Other long term (current) drug therapy
CPT/HCPCS: 76705

== ENCOUNTER → 2023-06-30 | Outpatient (CLI) | payer MEDICARE, SELFPAY ==
[2023-06-30 12:33] LABS: Absolute Lymphocyte Count 1.04 X10^3/uL (0.83-4.51); Absolute Neutrophil Count 2.7 X10^3/uL (2.0-7.7); Basophil# 0.03 X10^3/uL; Basophil% 0.7 % (0-1); Eosinophil# 0.14 X10^3/uL; Eosinophils% 3.2 % (0-5); Hematocrit 37.4 % (37-47); Lymphocyte # 1.04 X10^3/ul (0.83-4.51); Lymphocyte % 23.9 % (19-41); Mean Corp Hgb Conc 32.1 g/dL (32-36); Mean Corpuscular Hgb 32.2 pg (27.0-32.0); Mean Corpuscular Volume 100.3 fL (81-99); Mean Platelet Vol. 11.2 fl (6.2-12.0); Monocyte# 0.45 X10^3/uL; Monocyte% 10.3 % (0-10); NRBC Flagged by Analyzer 0 % (0-5); Neutrophil # 2.68 X10^3/uL (2.7-7.7); Neutrophil % 61.7 % (47-70); Platelet Count 189 K/mm3 (150-450); RBC Distribution Width CV 13.3 % (11.6-14.6); RBC Distribution Width SD 48.6 fl (35.1-43.9); Red Blood Count 3.73 M/mm3 (4.2-5.4); White Blood Count 4.4 K/mm3 (4.4-11.0)
[2023-06-30 12:53] LABS: ALB/GLOB Ratio 1.1 RATIO (0.9-2.4); AST(SGOT) 38 U/L (15-37); Alanine Aminotransfer ALT/SGPT 43 U/L (13-56); Albumin, Serum 3.8 g/dL (3.2-5.0); Alkaline Phosphatase 38 U/L (45-117); Anion Gap 3 (5-15); BUN 23 mg/dL (7-18); BUN/Creat Ratio 23.2 RATIO (10-20); Calcium,Total 9.2 mg/dL (8.5-10.1); Chloride 104 mmol/L (98-107); Creatinine, Serum 0.99 mg/dL (0.55-1.02); EST Glomerular Filtration Rate 57 mL/min (>60); Est Glom Filt Rate - Afr Amer 70 mL/min (>60); Globulin 3.4 g/dL (2.2-4.2); Glucose 81 mg/dL (74-106); Potassium 4.1 mmol/L (3.5-5.1); Protein, Total 7.2 g/dL (6.4-8.2); Sodium Level 137 mmol/L (136-145)
== END | disposition home or self-care (01) ==
LOC: MTLAB 10:34
PROVIDERS: PCP Family Medicine; Referring Provider Internal Medicine Rheumatology; Visit Provider Internal Medicine Rheumatology
DX: M06.00 Rheumatoid arthritis without rheumatoid factor, unspecified site (principal); M19.041 Primary osteoarthritis, right hand; M47.892 Other spondylosis, cervical region; M18.11 Unilateral primary osteoarthritis of first carpometacarpal joint, right hand; H81.10 Benign paroxysmal vertigo, unspecified ear; M21.42 Flat foot [pes planus] (acquired), left foot; Z79.899 Other long term (current) drug therapy
CPT/HCPCS: 36415; 80053; 85025

== ENCOUNTER → 2023-09-30 | Outpatient (CLI) | payer MEDICARE, SELFPAY ==
[2023-09-30 13:15] LABS: ALB/GLOB Ratio 0.8 RATIO (0.9-2.4); AST(SGOT) 34 U/L (15-37); Alanine Aminotransfer ALT/SGPT 61 U/L (13-56); Albumin, Serum 3.3 g/dL (3.2-5.0); Alkaline Phosphatase 72 U/L (45-117); Anion Gap 5 (5-15); BUN 21 mg/dL (7-18); BUN/Creat Ratio 24.4 RATIO (10-20); Calcium,Total 9.3 mg/dL (8.5-10.1); Chloride 100 mmol/L (98-107); Creatinine, Serum 0.86 mg/dL (0.55-1.02); EST Glomerular Filtration Rate 68 mL/min (>60); Est Glom Filt Rate - Afr Amer 82 mL/min (>60); Glucose 102 mg/dL (74-106); Potassium 3.8 mmol/L (3.5-5.1); Protein, Total 7.3 g/dL (6.4-8.2); Sodium Level 134 mmol/L (136-145)
[2023-09-30 13:28] LABS: Absolute Lymphocyte Count 0.76 X10^3/uL (0.83-4.51); Absolute Neutrophil Count 8.9 X10^3/uL (2.0-7.7); Basophil# 0.02 X10^3/uL; Basophil% 0.2 % (0-1); Eosinophil# 0.08 X10^3/uL; Eosinophils% 0.8 % (0-5); Hematocrit 35.5 % (37-47); Hemoglobin 11.4 g/dL (12.0-15.0); Lymphocyte # 0.76 X10^3/ul (0.83-4.51); Lymphocyte % 7.3 % (19-41); Mean Corp Hgb Conc 32.1 g/dL (32-36); Mean Corpuscular Hgb 31.8 pg (27.0-32.0); Mean Corpuscular Volume 99.2 fL (81-99); Mean Platelet Vol. 10.1 fl (6.2-12.0); Monocyte# 0.71 X10^3/uL; Monocyte% 6.8 % (0-10); NRBC Flagged by Analyzer 0 % (0-5); Neutrophil # 8.85 X10^3/uL (2.7-7.7); Neutrophil % 84.5 % (47-70); Platelet Count 288 K/mm3 (150-450); RBC Distribution Width CV 13.3 % (11.6-14.6); Red Blood Count 3.58 M/mm3 (4.2-5.4); White Blood Count 10.5 K/mm3 (4.4-11.0)
== END | disposition home or self-care (01) ==
LOC: MTLAB 11:17
PROVIDERS: PCP Family Medicine; Referring Provider Internal Medicine Rheumatology; Visit Provider Internal Medicine Rheumatology
DX: M06.00 Rheumatoid arthritis without rheumatoid factor, unspecified site (principal); Z79.899 Other long term (current) drug therapy
CPT/HCPCS: 36415; 80053; 85025

== ENCOUNTER → 2023-10-18 | Outpatient (CLI) | payer MEDICARE, SELFPAY ==
--- OUTSIDE RECORDS SUMMARY | 2023-10-18 12:43 | XMS RPT_ITS | CCD ---
Author Name Unknown Address [address] [place] [address] Organization [facility] Care Team Providers Care Office Admin Name Role Phone Akanksha Millan Unavailable Unavailable Akanksha Millan Unavailable Unavailable Akanksha Millan Unavailable Unavailable Unavailable IAN, DR DANIAL Ellis Attending Unavaila ble IAN, DR DANIAL Ellis Primary Care Unavaila ble IAN, DR DANIAL Ellis Admitting Unavaila ble Unavailable Unavailable Akanksha Millan Primary Care Unavaila ble Ronal Bradley Attending Unavailable MillanAkanksha farrell Referring Unavaila ble Millan, Akanksha Wyman Primary Care Unavaila ble Ronal Bradley Attending Unavailable MillanAkanksha farrell Referring Unavaila ble Millan, Akanksha Wyman Primary Care Unavaila ble FRANKLINMILAN CHAN Attending Unavailable MILAN REID Referring Unavailable Millan, Akanksha Wyman Referring Unavaila ble Millan, Akanksha Wyman Primary Care Unavaila ble Millan, Akanksha Wyman Attending Unavaila ble Millan, Akanksha Wyman Referring Unavaila ble Ronal Bradley Attending Unavailable Akanksha Millan Primary Care Unavaila ble Millan, Dr. Akanksha Wyman Referring Unav ailable Millan, Dr. Akanksha Wyman Attending Unav ailable Millan, Dr. Akanksha Wyman Primary Care Unav ailAkanksha Miguel MD Primary Care Provider [phone] Ronal Bradley DO Unavailable Akanksha Millan MD Primary Care Provider [phone] MILAN REID Referring Unavailable AKANKSHA MILLAN Primary Care Unavailable AKANKSHA MILLAN Attending Unavailable AKANKSHA MILLAN Primary Care Unavailable MILAN REID Attending Unavailable AKANKSHA MILLAN Primary Care Unavailable ZACHARY MCDERMOTTRICK Ginny Attending Unavailable AKANKSHA MILLAN Primary Care Unavailable Allergies Allergy Classification Reported Allergen(s) Allergy Type Date of Onset Reaction(s) Facility Acetaminophen / HYDROcodone (3 sources) Acetaminophen / HYDROcodone; Translations: [Vicodin TABS] Drug Allergy [facility] [employer] Work Phone: Amoxicillin / Clavulanate (3 sources) Amoxicillin / Clavulanate; Translations: [Augmentin] Drug Allergy [facility] [employer] Work Phone: NSAIDs (3 sources) Diclofenac; Translations: [diclofenac] Drug Allergy [facility] [employer] Work Phone: Opioid Agonists (3 sources) traMADol; Translations: [tramadol] Drug Allergy [facility] [employer] Work Phone: Penicillins (antibiotic) (3 sources) Amoxicillin; Translations: [Amoxil] Drug Allergy [facility] [employer] Work Phone: (16 sources) Acetaminophen / HYDROcodone; Translations: [Vicodin TABS] Drug Allergy 3 Hallucinations -[facility] Work Phone: (12 sources) Amoxicillin; Translations: [Amoxil] Drug Allergy Rash [facility] Work Phone: (12 sources) Amoxicillin / Clavulanate; Translations: [Augmentin] Drug Allergy Rash -[facility] Work Phone: (18 sources) Diclofenac; Translations: [diclofenac] Drug Allergy 3 Other [facility] Work Phone: (18 sources) traMADol; Translations: [tramadol] Drug Allergy 3 Other -[facility] Work Phone: (6 sources) Amoxicillin; Translations: [AMOXICILLIN] Drug Allergy 3 [facility] (6 sources) Amoxicillin / Clavulanate; Translations: [AMOXICILLIN-POT CLAVULANATE] Drug Allergy 3 [facility] Work Phone: (2 sources) Acetaminophen / HYDROcodone; Translations: [HYDROCODONE-ACET AMINOPHEN] Drug Allergy 3 [facility] 2 Repository Medications Current Medications Medication Drug Class(es) Dates Sig (Normalized) Sig (Original) aspirin 81 mg delayed release oral tablet (19 sources) Platelet Aggregation Inhibitor, Nonsteroidal Anti-inflammatory Drug take 1 tablet by mouth once daily aspirin 81 mg EC tablet Take 1 tablet (81 mg) by mouth once daily. 0 Active Completed/Discontinued Medications Medication Drug Class(es) Dates Sig (Normalized) Sig (Original) [facility] Calcium 600 + D/Minerals 600-800 MG-UNIT Oral Tablet (3 sources) Start: 12-05-2019 take 600-800 tablets by mouth twice daily [facility] Calcium 600 + D/Minerals 600-800 MG-UNIT Oral Tablet Take 1 tablet twice daily Refills: 0 Start : 05-Dec-2019 Active [facility] Calcium 600 + D/Minerals 600-800 MG-UNIT Oral Tablet (12 sources) Start: 12-05-2019 take 600-800 tablets by mouth twice daily [facility] Calcium 600 + D/Minerals 600-800 MG-UNIT Oral Tablet Take 1 tablet twice daily Quantity: 0 Refills: 0 Ordered: 05-Dec-2019 DO Start : 05-Dec-2019 Active IBgard CPCR (4 sources) IBgard CPCR Quantity: 0 Refills: 0 Ordered: 11-Feb-2022 DO Active meloxicam 15 mg oral tablet (15 sources) Nonsteroidal Anti-inflammatory Drug Start: 12-05-2019 Meloxicam 15 MG Oral Tablet TAKE TABLET PRN Quantity: 0 Refills: 0 Ordered: 05-Dec-2019 DO Start : 05-Dec-2019 Active Multi-Vitamins Oral Tablet (3 sources) Start: 12-05-2019 Multi-Vitamins Oral Tablet Refills: 0 Start : 05-Dec-2019 Active Multi-Vitamins TABS (12 sources) Start: 12-05-2019 Multi-Vitamins TABS TAKE 1 TABLET DAILY. Quantity: 0 Refills: 0 Ordered: 05-Dec-2019 DO Start : 05-Dec-2019 Active Problems Active Problems Problem Classification Problem Date Documented Da te Episodic/Chronic Cardiac dysrhythmias (20 sources) Irregular heart beat; Translations: [Cardiac dysrhythmia, unspecified] Onset: 10-30-2022 08-25-2023 Chronic Disorders of lipid metabolism (20 sources) Mixed hyperlipidemia; Translations: [Mixed hyperlipidemia] Onset: 10-30-2022 10-30-2022 Chronic Osteoarthritis (19 sources) Osteoarthritis; Translations: [Osteoarthrosis, unspecified whether generalized or localized, site unspecified] Onset: 10-30-2022 10-30-2022 Chronic Other gastrointestinal disorders (19 sources) Irritable bowel syndrome; Translations: [Irritable bowel syndrome] Onset: 10-30-2022 10-30-2022 Chronic Other gastrointestinal disorders (2 sources) Irritable bowel syndrome without diarrhea; Translations: [Irritable bowel syndrome without diarrhea] Onset: 10-30-2022 Chronic Other lower respiratory disease (1 source) Cough; Translations: [Acute cough] 09-27-2023 Episodic Pulmonary heart disease (18 sources) Pulmonary hypertension; Translations: [Other chronic pulmonary heart diseases] Onset: 10-30-2022 10-30-2022 Chronic Residual codes; unclassified (20 sources) Past history of procedure; Translations: [Other specified personal history presenting hazards to health] Episodic Past or Other Problems Problem Classification Problem Date Documented Da te Episodic/Chronic Genitourinary symptoms and ill-defined conditions (16 sources) Blood in urine; Translations: [Hematuria, unspecified] Onset: 10-30-2022 10-30-2022 Episodic Malaise and fatigue (2 sources) Other fatigue; Translations: [Other fatigue] Onset: 12-17-2022 Episodic Nutritional deficiencies (20 sources) Cobalamin deficiency; Translations: [Other B-complex deficiencies] Onset: 10-30-2022 10-30-2022 Episodic Other eye disorders (19 sources) Tear film insufficiency; Translations: [Tear film insufficiency, unspecified] Onset: 10-30-2022 10-30-2022 Episodic Other screening for suspected conditions (not mental disorders or infectious disease) (20 sources) Increased glucose level; Translations: [Other abnormal glucose] Onset: 10-30-2022 Episodic Unclassified (3 sources) Patient encounter status; Translations: [Breast cancer screening by mammogram] Unclassified (1 source) Cough, unspecified; Translations: [Cough, unspecified] Onset: 08-18-2021 Unclassified (4 sources) Onset: 08-25-2023 08-25-2023 Unclassified (1 source) Acute cough; Translations: [Acute cough] Onset: 09-27-2023 Urinary tract infections (16 sources) Acute lower urinary tract infection; Translations: [Urinary tract infection, site not specified] Onset: 10-30-2022 10-30-2022 Episodic Results Test Name Value Interpretation Reference Range Facil ity Vital Signs Date Time Vital Sign Value Performing Clinician Faci lity 09-27-2023 11:10-0500 Body height 167.6 cm Kevin Mcdermott MD Work Phone: [facility] 09-27-2023 11:10-0500 Body mass index (BMI) [Ratio] 22.87 kg/m2 Kevin Mcdermott MD Work Phone: [facility] 09-27-2023 11:10-0500 Body weight 64.28 kg Kevin Mcdermott MD Work Phone: [facility] 09-27-2023 11:10-0500 Diastolic blood pressure 72 mm[Hg] Kevin Mcdermott MD Work Phone: [facility] 09-27-2023 11:10-0500 Heart rate 89 /min Kevin Mcdermott MD Work Phone: [facility] 09-27-2023 11:10-0500 SaO2% (BldA) [Mass fraction] 96 % Kevin Mcdermott MD Work Phone: [facility] 09-27-2023 11:10-0500 Systolic blood pressure 138 mm[Hg] Kevin Mcdermott MD Work Phone: [facility] 09-06-2023 12:05-0500 Diastolic blood pressure 94 mm[Hg] [facility] 1 [facility] 09-06-2023 12:05-0500 Heart rate 59 /min [facility] 1 [facility] 09-06-2023 12:05-0500 Respiratory rate 16 /min [facility] 1 [facility] 09-06-2023 12:05-0500 SaO2% (BldA) [Mass fraction] 96 % [facility] 1 [facility] 09-06-2023 12:05-0500 Systolic blood pressure 174 mm[Hg] [facility] 1 [facility] 08-25-2023 10:48-0500 Body height 167.6 cm Milan Reid MD Work Phone: [facility] 08-25-2023 10:48-0500 Body mass index (BMI) [Ratio] 22.77 kg/m2 Milan Reid MD Work Phone: [facility] 08-25-2023 10:48-0500 Body weight 64 kg Milan Reid MD Work Phone: [facility] 08-25-2023 10:48-0500 Diastolic blood pressure 80 mm[Hg] Milan Reid MD Work Phone: [facility] 08-25-2023 10:48-0500 Heart rate 59 /min Milan Reid MD Work Phone: [facility] 08-25-2023 10:48-0500 SaO2% (BldA) [Mass fraction] 96 % Milan Reid MD Work Phone: [facility] 08-25-2023 10:48-0500 Systolic blood pressure 122 mm[Hg] Milan Reid MD Work Phone: [facility] 08-26-2022 11:21-0500 Body height 167.64 cm Akanksha Millan Work Phone: MI-Gnbnfphlmd-Rvgxn [address] Work Phone: 08-26-2022 11:21-0500 Body mass index (BMI) [Ratio] 22.78 kg/m2 Akanksha Millan Work Phone: MA-Ldaykgjahw-Elmls [address] Work Phone: 08-26-2022 11:21-0500 Body surface area Derived from formula 1.72 m2 Akanksha Millan Work Phone: NC-Fyyimwgdxs-Xhblg [address] Work Phone: 08-26-2022 11:21-0500 Body weight 64.02 kg Akanksha Millan Work Phone: EM-Liimplfboe-Ythnn [address] Work Phone: 08-26-2022 11:21-0500 Diastolic blood pressure 76 mm[Hg] Akanksha Millan Work Phone: GP-Paencvitlu-Dtnjp [address] Work Phone: 08-26-2022 11:21-0500 Heart rate 56 /min Akanksha Millan Work Phone: HV-Jhytqjwxir-Codti [address] Work Phone: 08-26-2022 11:21-0500 SaO2% (BldA) [Mass fraction] 99 % Akanksha Millan Work Phone: QB-Ozrdzwmyec-Jukwn [address] Work Phone: 08-26-2022 11:21-0500 Systolic blood pressure 142 mm[Hg] Akanksha Millan Work Phone: IW-Kmeltarxra-Wcjgz [address] Work Phone: 08-12-2022 10:07-0500 Body height 167.64 cm Akanksha Millan Work Phone: RJ-Xmpgcaissh-Rjfkl [address] Work Phone: 08-12-2022 10:07-0500 Body mass index (BMI) [Ratio] 22.82 kg/m2 Akanksha Millan Work Phone: QD-Aihhhqznvv-Oddld [address] Work Phone: 08-12-2022 10:07-0500 Body surface area Derived from formula 1.73 m2 Akanksha Millan Work Phone: GO-Uzvqmjwhrd-Azndk [address] Work Phone: 08-12-2022 10:07-0500 Body weight 64.13 kg Akanksha Millan Work Phone: VI-Rlrxgqqgtg-Pjllg [address] Work Phone: 08-12-2022 10:07-0500 Diastolic blood pressure 80 mm[Hg] Akanksha Millan Work Phone: JU-Slpdjwaqpo-Veqqk [address] Work Phone: 08-12-2022 10:07-0500 Systolic blood pressure 140 mm[Hg] Akanksha Millan Work Phone: SM-Njzxzdeadm-Gkswz [address] Work Phone: 05-13-2022 10:08-0400 Body height 167.64 cm Akanksha Millan Work Phone: [facility] [address] Work Phone: 05-13-2022 10:08-0400 Body mass index (BMI) [Ratio] 22.92 kg/m2 Akanksha Millan Work Phone: [facility] [address] Work Phone: 05-13-2022 10:08-0400 Body surface area Derived from formula 1.73 m2 Akanksha Millan Work Phone: [facility] [address] Work Phone: 05-13-2022 10:08-0400 Body weight 64.41 kg Akanksha Mlilan Work Phone: [facility] [address] Work Phone: 05-13-2022 10:08-0400 Diastolic blood pressure 80 mm[Hg] Akanksha Millan Work Phone: [facility] [address] Work Phone: 05-13-2022 10:08-0400 Systolic blood pressure 130 mm[Hg] Fortunatomelirais Millan Work Phone: [facility] [address] Work Phone: 02-11-2022 14:14-0400 Body height 167.64 cm Fortunatopatrick Chucho Millan Work Phone: [facility] [address] Work Phone: 02-11-2022 14:14-0400 Body mass index (BMI) [Ratio] 23.24 kg/m2 Fortunatomelirais Millan Work Phone: [facility] [address] Work Phone: 02-11-2022 14:14-0400 Body surface area Derived from formula 1.74 m2 Fortunatomelirais Millan Work Phone: [facility] [address] Work Phone: 02-11-2022 14:14-0400 Body weight 65.32 kg Akanksha Farrell Millan Work Phone: [facility] [address] Work Phone: 02-11-2022 14:14-0400 Diastolic blood pressure 70 mm[Hg] Fortunatopatrick Chucho Millan Work Phone: [facility] [facility] Work Phone: 02-11-2022 14:14-0400 Systolic blood pressure 120 mm[Hg] Akanksha Millan Work Phone: [facility] [address] Work Phone: 12-09-2021 10:10-0400 Body height 167.64 cm Akanksha Millan Work Phone: [facility] [place] Phone: 12-09-2021 10:10-0400 Body mass index (BMI) [Ratio] 23 kg/m2 Akanksha Millan Work Phone: [facility] Work Phone: 12-09-2021 10:10-0400 Body surface area Derived from formula 1.73 m2 Akanksha Millan Work Phone: [facility] Work Phone: 12-09-2021 10:10-0400 Body weight 64.64 kg Akanksha Millan Work Phone: [facility] Work Phone: 12-09-2021 10:10-0400 Diastolic blood pressure 70 mm[Hg] Akanksha Millan Work Phone: [facility] Work Phone: 12-09-2021 10:10-0400 Heart rate 57 /min Akanksha Millan Work Phone: [facility] Work Phone: 12-09-2021 10:10-0400 SaO2% (BldA) [Mass fraction] 97 % Akanksha iMllan Work Phone: [facility] Work Phone: 12-09-2021 10:10-0400 Systolic blood pressure 128 mm[Hg] Akanksha Millan Work Phone: [facility] Work Phone: 02-13-2021 11:40-0400 Body height 169.55 cm Akanksha Millan Work Phone: [facility] Work Phone: 02-13-2021 11:40-0400 Body mass index (BMI) [Ratio] 21.84 kg/m2 Fortunatopatrick Hernandezd Work Phone: [facility] Work Phone: 02-13-2021 11:40-0400 Body surface area Derived from formula 1.72 m2 Paulirais Chucho Millan Work Phone: [facility] [employer] Work Phone: 02-13-2021 11:40-0400 Body temperature 95.6 [degF] Fortunatopatrick Chucho Millan Work Phone: [facility] [employer] Work Phone: 02-13-2021 11:40-0400 Body weight 62.77 kg Akanksha Millan Work Phone: [facility] [employer] Work Phone: 02-13-2021 11:40-0400 Diastolic blood pressure 86 mm[Hg] Akanksha Millan Work Phone: [facility] [employer] Work Phone: 02-13-2021 11:40-0400 Heart rate 75 /min Akanksha Millan Work Phone: [facility] [employer] Work Phone: 02-13-2021 11:40-0400 SaO2% (BldA) [Mass fraction] 99 % Akanksha Millan Work Phone: [facility] [employer] Work Phone: 02-13-2021 11:40-0400 Systolic blood pressure 142 mm[Hg] Akanksha Millan Work Phone: [facility] [employer] Work Phone: 12-05-2019 11:54-0400 BMI (Body Mass Index) 23.02 kg/m2 Akanksha Millan [facility] Work Phone: 12-05-2019 11:54-0400 Body weight 66.68 kg Akanksha Millan [facility] Work Phone: 12-05-2019 11:54-0400 BP Diastolic 70 mm[Hg] Akanksha Millan [employer] Work Phone: Encounters Encounter Date Encounter Type Care Provider Facility Start: 09-27-2023 End: 09-27-2023 ambulatory [facility] Ambulatory Start: 09-27-2023 End: 09-27-2023 Office outpatient visit 15 minutes Kevin Mcdermott MD Work Phone: [facility] Procedures Date Procedure Procedure Detail Performing Clinician Start: 09-06-2023 TRANSTHORACIC ECHO ( TTE) COMPLETE MILAN REID Start: 09-06-2023 Echo tthrc r-t 2d w/ wom-mode compl spec&colr d Milan Reid MD Work Phone: Start: 08-25-2023 ECG 12-LEAD KATHLEEN MILLAN Start: 08-25-2023 Ecg routine ecg w/le ast 12 lds w/i&r Milan Reid MD Work Phone: Start: 12-23-2022 Lipid 1996 panel - S franklyn or Plasma Milan Reid MD Work Phone: Start: 12-17-2022 Cyanocobalamin vitamin b-12 AKANKSHA MILLAN Start: 12-17-2022 Lipid panel KATHLEEN MILLAN Start: 12-17-2022 Thyrotropin [Units/v olume] in Serum or Plasma AKANKSHA MILLAN Start: 12-17-2022 Comprehensive metabo lic 2000 panel - Serum or Plasma AKANKSHA MILLAN Start: 01-27-2021 Echocardiography Fortunato Millan Work Phone: Start: 12-05-2019 Assay of thyroid sti mulating hormone tsh Akanksha Millan Start: 12-05-2019 Blood count complete auto&auto difrntl wbc Akanksha Millan Start: 12-05-2019 Comprehensive metabo lic 2000 panel Akanksha Millan Start: 12-05-2019 Cyanocobalamin vitamin b-12 Akanksha Millan Start: 12-05-2019 Hemoglobin glycosylated a1c Akanksha Millan Start: 12-05-2019 Lipid panel Kathleen Millan Start: 12-05-2019 MG Breast screening Chr isdilcia Millan Colonoscopy Akanksha farrell Plan of Treatment Date Care Activity Detail Author Start: 12-24-2027 Lipid panel Lipid Panel [facility] Start: 08-16-2024 End: 08-16-2024 Patient encounter procedure 08/16/2024 11:15 AM EST Office Visit [facility] Medical [facility] Building [address] [place] [address] Milan Reid MD [address] [place] [address] [facility] Start: 02-09-2024 End: 02-09-2024 Patient encounter procedure 02/09/2024 10:30 AM EDT Office Visit [facility] [address] [place] [id number] Ronal Bradley, [address] [facility], [address] [place] [address] [facility] Start: 12-20-2023 End: 12-20-2023 Patient encounter procedure 12/20/2023 9:20 AM EDT Office Visit [facility] [address] [place] [address] Akanksha Millan MD [address] [id number] [facility] Start: 12-19-2023 Medicare Annual Wellness Visit Medicare Annual Wellness Visit (AWV) [facility] Start: 12-19-2023 End: 12-19-2023 Patient encounter procedure 12/19/2023 10:20 AM EDT Office Visit [facility] [address] [place] [address] Akanksha Millan MD [address] [id number] [facility] Start: 08-25-2023 End: 08-25-2025 US Heart Transthoracic Transthoracic Echo (TTE) Complete Echocardiography Routine Irregular heartbeat Syncope and collapse Expected: 08/25/2023 (Approximate), Expires: 08/25/2025 [facility] Service Area Work Phone: Immunizations Immunization Date Immunization Notes Care Provider Martin boyer 07-01-2022 influenza virus vaccine, unspecified formulation Milan Reid MD Work Phone: [facility] Work Phone: 08-11-2021 Moderna COVID-19 Vaccine 100 MCG/0.5ML Intramuscular Suspension Akanksha Millan Work Phone: [facility] Payers Date Payer Category Payer Medicare [employer] MEDICARE A ETNA FISHER MEDICARE [id number] 2021-Present [address] [place] [address] [id number] 2021 Private Health Insurance 101 [id number] 1945 Unknown [id number] 51 1945 Unknown [id number] 56 1945 Unknown [id number] 56 1945 Unknown [id number] 56 1945 Unknown [id number] 56 1945 Unknown [id number] 56 1945 Unknown [id number] 069 1945 Unknown [id number] 243 1945 Unknown [id number] 244 1945 Unknown [id number] 244 1945 Unknown [id number] 244 Private Health Insurance [id number] [id number] Unknown [employer] Social History Date Type Detail Facility Assertion Tobacco smoking consumption unknown (finding[place] [facility] [place]: Start: 12-17-2022 End: 09-27-2023 Patient has healthcare proxy and living will Patient has healthcare proxy and living will [facility] Start: 08-25-2023 Tobacco smoking stat NHIS Never smoked tobacco [facility] Work Phone: Start: 08-25-2023 Tobacco use and exposure Smokeless tobacco non-user [facility] Work Phone: Start: 08-25-2023 End: 09-27-2023 Alcohol intake Ex-drinker (finding) [facility] Work Phone: Start: 12-17-2022 End: 09-27-2023 Tobacco use panel [facility] Start: 1945 Sex Assigned At Not on file U [facility] Work Phone: Start: 08-15-2023 End: 09-27-2023 Exposure to SARS-CoV-2 (event) Not sure [facility] NEGATED: Highlighted row Denies Consumes alcohol occasionally Denies Consumes alcohol occasionally [facility] Work Phone: NEGATED: Highlighted rowStart: NINF History of tobacco use Passive smoker [facility] Work Phone: Functional Status Date Assessment Result Facility NEGATED: Highlighted row Functional performance Functional status health issues are not documented [facility] Work Phone: Mental Status Date Assessment Result Facility NEGATED: Highlighted row Cognitive function [Interpretation] Cognitive status health issues are not documented Disease [facility] Work Phone: Clinical Notes 01-30-2020 to 09-27-2023 Kevin Mcdermott MD - 09/27/2023 11:00 AM ESTMilan Reid MD - 08/25/2023 10:30 AM EST Note Date & Type Note Facility 09-27-2023 History of Present illness Narrative Subjective Patient ID: Kim Rocha is a 78 y.o. female who presents for Sore Throat (X1wk, cough, RT Upper Back Pain). Sore Throat This is a new problem. The current episode started 1 to 4 weeks ago. The problem has been waxing and waning. The pain is worse on the left side. There has been no fever. The pain is at a severity of 8/10. Associated symptoms include congestion, coughing, ear pain, headaches and neck pain. Pertinent negatives include no abdominal pain, diarrhea, drooling, ear discharge, hoarse voice, plugged ear sensation, shortness of breath, stridor, swollen glands, trouble swallowing or vomiting. She has had no exposure to strep or mono. Cough sore throat for 5 days. Cough down a couple of nights she pulled a muscle in her upper mid back. Exam is benign pulse ox is normal. Prednisone for 5 days If things get worse in the next 5 days, start the antibiotic. If not better in 7 to 10 days then take the antibiotic and 2. Review of Systems HENT: Positive for congestion, ear pain and sore throat. Negative for drooling, ear discharge, hoarse voice and trouble swallowing. Respiratory: Positive for cough. Negative for shortness of breath and stridor. Gastrointestinal: Negative for abdominal pain, diarrhea and vomiting. Musculoskeletal: Positive for neck pain. Neurological: Positive for headaches. Objective BP 138/72 Pulse 89 Ht 1.676 m (5' 6 ) Wt 64.3 kg (141 lb 11.2 oz) SpO2 96% BMI 22.87 kg/m Physical Exam Constitutional: Appearance: Normal appearance. HENT: Head: Normocephalic and atraumatic. Cardiovascular: Rate and Rhythm: Normal rate and regular rhythm. Heart sounds: Normal heart sounds. Pulmonary: Effort: Pulmonary effort is normal. Breath sounds: Normal breath sounds. Skin: General: Skin is warm and dry. Neurological: General: No focal deficit present. Mental Status: She is alert and oriented to person, place, and time. Psychiatric: Mood and Affect: Mood normal. Behavior: Behavior normal. Thought Content: Thought content normal. Judgment: Judgment normal. Assessment/Plan Problem List Items Addressed This Visit None Visit Diagnoses Codes Acute cough - Primary R05.1 Relevant Medications predniSONE (Deltasone) 20 mg tablet azithromycin (Zithromax) 250 mg tablet documented in this encounter [facility] Work Phone: 08-25-2023 History of Present illness Narrative Cardiology Subsequent Encounter Clinic Note Name: Kim Rocha : 1945 CC: Syncope Active Issues: Kim Rocha is a 78 y.o. female with a medical history of hyperlipidemia, presents with the following complaints Problem #1 pulmonary hypertension has noticed on her echocardiogram -Patient's echocardiogram done 01/30/2020 was significant for normal left ventricular systolic function; and a calculated PASP of 40 mmHg. -Patient notes that she can walk on level ground without any limitations. Denies any orthopnea/PND/leg swelling. Denies any recent syncopal episodes. Problem #2 nonsustained ventricular tachycardia noted on her event monitor -On event monitor done 01/2021 patient was noted to have a 14 beat run of ventricular tachycardia which appeared to be monomorphic -Denies any palpitations. On this visit patient notes that in October she had an episode when she passed out at the dinner table; she remembers having a prodrome of feeling really hot and waking up with an episode of micturition. She was evaluated in the emergency room and this episode was termed vasovagal syncope . Had a similar episode back in 2015. No recurrent episodes since then. Denies any palpitations. Occasional dizziness with postural changes Past Medical History Past Medical History: Diagnosis Date Personal history of other medical treatment History of mammogram Personal history of other medical treatment History of bone density study Past Surgical History Past Surgical History: Procedure Laterality Date OTHER SURGICAL HISTORY 11/29/2019 Dilation and curettage OTHER SURGICAL HISTORY 11/29/2019 Tubal ligation OTHER SURGICAL HISTORY 11/29/2019 Hysterectomy OTHER SURGICAL HISTORY 12/05/2019 Colonoscopy OTHER SURGICAL HISTORY 08/26/2022 Eye surgery Medications Current Outpatient Medications on File Prior to Visit Medication Sig Dispense Refill aspirin 81 mg EC tablet Take 1 tablet (81 mg) by mouth once daily. dicyclomine (Bentyl) 10 mg capsule Take 1 capsule (10 mg) by mouth 4 times a day as needed. folic acid (Folvite) 1 mg tablet Take 1 tablet (1 mg) by mouth 2 times a day. hydroxychloroquine (Plaquenil) 200 mg tablet Take 1 tablet (200 mg) by mouth 2 times a day. L. acidophilus/Bifid. animalis 32 billion cell capsule Take by mouth. methotrexate (Trexall) 2.5 mg tablet Take 6 tablets (15 mg total) by mouth per week. metoprolol tartrate (Lopressor) 25 mg tablet Take 1 tablet (25 mg) by mouth 2 times a day. multivitamin tablet Take 1 tablet by mouth once daily. predniSONE (Deltasone) 10 mg tablet Take 1 tablet (10 mg) by mouth once daily as needed. psyllium (Metamucil) 0.4 gram capsule Take 5 capsules by mouth once daily. pyridoxine (Vitamin B-6) 100 mg tablet Take 1 tablet (100 mg) by mouth once daily. vitamin E acid succinate (vitamin E succinate) 268 mg (400 unit) tablet Take 2 tablets by mouth 1 (one) time each day. Ca-D3-mag ip-hnrv-zwh-nicole-bor 600 mg calcium- 20 mcg-50 mg tablet Take 1 tablet by mouth in the morning and at bedtime. No current facility-administered medications on file prior to visit. Allergies Allergies Allergen Reactions Diclofenac Other NAUSEA AND VOMITING Hydrocodone-Acetaminophen Hallucinations Tramadol Other NAUSEA AND VOMITING Amoxicillin Rash Amoxicillin-Pot Clavulanate Rash Social History Social History Tobacco Use Smoking status: Never Passive exposure: Never Smokeless tobacco: Never Vaping Use Vaping Use: Never used Substance Use Topics Alcohol use: Not Currently Drug use: Never Family History Family History Problem Relation Name Age of Onset Heart failure Mother Hypertension Mother Heart failure Father Hypertension Father Heart attack Brother Coronary artery disease Brother Physical Examination Vitals: BP 122/80 Pulse 59 Ht 1.676 m (5' 6 ) Wt 64 kg (141 lb 1.6 oz) SpO2 96% BMI 22.77 kg/m General: awake, alert and oriented. No acute distress. Skin: Skin is warm, dry and intact without rashes or lesions. Appropriate color for ethnicity. Nail beds pink with no cyanosis or clubbing HEENT: normocephalic, atraumatic; conjunctivae are clear without exudates or hemorrhage. Sclera is non-icteric. Eyelids are normal in appearance without swelling or lesions. Hearing intact. Nares are patent bilaterally. Moist mucous membranes. Cardiovascular: Regular. No murmurs, gallops, or rubs are auscultated. S1 and S2 are heard and are of normal intensity. No JVD, no carotid bruits Respiratory: Thorax symmetric. CTAB, breath sounds vesicular. No crackles, wheezes or ronchi. Gastrointestinal: soft, non-distended, BS + x 4 Genitourinary: exam deferred Musculoskeletal: moves all extremities Extremities: pulses palpable bilaterally; no swelling or erythema; no edema Neurological: alert & oriented x 3; no focal deficits Psychiatric: appropriate mood and affect Labs/Imaging/Procedures Lab Results Component Value Date HGB 13.3 12/05/2019 PLT 205 12/05/2019 WBC 3.9 (L) 12/05/2019 NA 139 12/05/2019 K 4.3 12/05/2019 CREATININE 0.85 12/05/2019 BUN 20 12/05/2019 CALCIUM 9.9 12/05/2019 No echocardiogram results found for the past 12 months BI mammo bilateral screening tomosynthesis Narrative: Interpreted By: RAJINDER RENDON MD Patient Name: KIM ROCHA STUDY: Digital mammography screening with mehdi; 02/18/2023 11:07 am ACCESSION NUMBER(S): [id number] ORDERING CLINICIAN: AKANKSHA MILLAN INDICATION: Screening. COMPARISON: Comparison is made to prior digital mammograms dated 02/17/2022 FINDINGS: CC and MLO 2D digital mammograms and digital breast tomosynthesis images were obtained of the bilateral breasts. 3-D volume images were reconstructed in 4 views at an independent workstation as 1 mm slices through the breasts in both the CC and MLO projections. There are areas of scattered fibroglandular tissue. No discrete mass or focal asymmetry is identified. No suspicious microcalcifications or foci of architectural distortion are seen. There has been no significant change. This study was interpreted with CAD. Impression: No mammographic evidence of malignancy. BI-RADS CATEGORY: Category: 1 - Negative. Recommendation: 1 Year Screening. Impression Kim Rocha is a 78 y.o. female with a medical history of hyperlipidemia, presents with the following complaints Problem #1 pulmonary hypertension has noticed on her echocardiogram -Patient's echocardiogram done 01/30/2020 was significant for normal left ventricular systolic function; and a calculated PASP of 40 mmHg. -Patient likely has some group 2 pulmonary hypertension possibly related to age-related left heart disease (diastolic dysfunction). But however in the absence of symptoms no indication for further evaluation or treatment at this time. Problem #2 nonsustained ventricular tachycardia noted on her event monitor -Continue Lopressor. -No further evaluation required at this point. Plan: -Recent episode of syncope appears to be most consistent with vasovagal. Will repeat an echocardiogram to reassess pulmonary pressures/structural heart disease -Continue Lopressor at this time. The sinus bradycardia is unlikely to be related to her dizziness and is likely asymptomatic -RTC 1 year Milan Reid MD Advanced Heart Failure/Transplant Cardiology Cardio-Oncology [facility] [place] documented in this encounter [facility] Work Phone: 01-30-2020 History of Present illness Narrative 75-year-old female with a medical history of hyperlipidemia, presents with the following complaintsProblem #1 pulmonary hypertension has noticed on her echocardiogram-Patient's echocardiogram done 01/30/2020 was significant for normal left ventricular systolic function; and a calculated PASP of 40 mmHg.-Patient notes that she can walk on level ground with for 30 minutes to an hour at a time without any limitations. Denies any orthopnea/PND/leg swelling. Denies any dizziness/lightheadedness. Denies any recent syncopal episodes.Problem #2 nonsustained ventricular tachycardia noted on her event monitor-On her recent event monitor done 01/2021 patient was noted to have a 14 beat run of ventricular tachycardia which appeared to be monomorphic-Denies any palpitations. [id number] [address] Work Phone: 01-30-2020 History of Present illness Narrative 77-year-old female with a medical history of hyperlipidemia, presents with the following complaintsProblem #1 pulmonary hypertension has noticed on her echocardiogram-Patient's echocardiogram done 01/30/2020 was significant for normal left ventricular systolic function; and a calculated PASP of 40 mmHg.-Patient notes that she can walk on level ground without any limitations. Denies any orthopnea/PND/leg swelling. Denies any recent syncopal episodes.Problem #2 nonsustained ventricular tachycardia noted on her event monitor-On event monitor done 01/2021 patient was noted to have a 14 beat run of ventricular tachycardia which appeared to be monomorphic-Denies any palpitations.Does have some noncardiac complaints including knee/calf pain (not claudication), occasional photopsia in visual field (has been seeing expansion joint finisher) [id number] [address] Work Phone: documented in this encounter [facility] Work Phone: Evaluation note* Diagnosis Irregular heartbeat Unspecified cardiac dysrhythmia Syncope and collapse documented in this encounter [facility] Work Phone: Evaluation note* Diagnosis Acute cough- Primary documented in this encounter [facility] Work Phone: History of Present illness Narrative* The patient is being seen for the subsequent annual wellness visit. * Past Medical, Surgical and Family History: reviewed and updated in chart. * Medications and Supplements: Review of all medications by a prescribing practitioner or clinical pharmacist (such as prescriptions, OTCs, herbal therapies and supplements) documented in the medical record. * No, the patient is not using opioids. * Patient Self Assessment of Health Status: good. * Tobacco use: Non-User * Alcohol use: Non-User * Illicit drug use: Non-User * Current diet: well balanced diet. * Exercise Frequency: regularly. * Depression/Suicide Screening: . * During the past 2 weeks, the patient has not felt down, depressed or hopeless. * During the past 2 weeks, the patient has not felt little interest or pleasure in doing things. * Hearing Impairment: Patient has significant hearing impairment, bilaterally, She uses a hearing aid. * Cognitive Impairment: No cognitive impairment observed. * Bathing: performs independently. * Dressing: performs independently. * Walking: performs independently. * Managing Finances: performs independently. * Shopping: performs independently. * Managing Medications: performs independently. * Housework / Basic Home Maintenance: performs independently. * Falls Risk Screening:. KIM has not fallen in the last 6 months. * Home safety risk factors: none. * Advance directives:. Patient has living will. Placed in chart. * Patient's End of Life Decisions: End of life decisions were reviewed with the patient. I agree to follow the patient's decisions. * No headache, chest pain, shortness of breath, dizziness, lightheadedness, or edema * Sees Sanitation Truck Cleaner on a regular basis * Seen Cardiology, started on metoprolol for palpitations and pulmonary hypertension * was in ER this past fall in , had CT (negative evaluation), pain in abdomen and chest lasted4 hours and resolved * pain more in evening, better in AM, started again in the past week, had stopped taking dicyclomine * had scope in 2017 (normal) * had COVID in July * BM good, eating fiber, no constipation, soft stools * dicyclomine helps at times * arthritis stable pain [facility] Work Phone: History of Present illness Narrative* The patient is being seen for the subsequent annual wellness visit. * Past Medical, Surgical and Family History: reviewed and updated in chart. * Medications and Supplements: Review of all medications by a prescribing practitioner or clinical pharmacist (such as prescriptions, OTCs, herbal therapies and supplements) documented in the medical record. * No, the patient is not using opioids. * Patient Self Assessment of Health Status: good. * Tobacco use: Non-User * Alcohol use: Non-User * Illicit drug use: Non-User * Current diet: well balanced diet. * Exercise Frequency: regularly. * Depression/Suicide Screening: . * During the past 2 weeks, the patient has not felt down, depressed or hopeless. * During the past 2 weeks, the patient has not felt little interest or pleasure in doing things. * Hearing Impairment: Patient has significant hearing impairment, bilaterally, She uses a hearing aid. * Cognitive Impairment: No cognitive impairment observed. * Bathing: performs independently. * Dressing: performs independently. * Walking: performs independently. * Managing Finances: performs independently. * Shopping: performs independently. * Managing Medications: performs independently. * Housework / Basic Home Maintenance: performs independently. * Falls Risk Screening:. KIM has not fallen in the last 6 months. * Home safety risk factors: none. * Advance directives:. Patient has living will. Placed in chart. * Patient's End of Life Decisions: End of life decisions were reviewed with the patient. I agree to follow the patient's decisions. * No headache, chest pain, shortness of breath, dizziness, lightheadedness, or edema * Sees Sanitation Truck Cleaner on a regular basis * Seen Cardiology, started on metoprolol for palpitations and pulmonary hypertension * was in ER this past fall in [place], had CT (negative evaluation), pain in abdomen and chest lasted4 hours and resolved * pain more in evening, better in AM, started again in the past week, had stopped taking dicyclomine * had scope in 2017 (normal) * had COVID in July * BM good, eating fiber, no constipation, soft stools * dicyclomine helps at times * arthritis stable pain [facility] Work Phone: History of Present illness Narrative* The patient is being seen for the subsequent annual wellness visit. * Past Medical, Surgical and Family History: reviewed and updated in chart. * Medications and Supplements: Review of all medications by a prescribing practitioner or clinical pharmacist (such as prescriptions, OTCs, herbal therapies and supplements) documented in the medical record. * No, the patient is not using opioids. * Patient Self Assessment of Health Status: good. * Tobacco use: Non-User * Alcohol use: Non-User * Illicit drug use: Non-User * Current diet: well balanced diet. * Exercise Frequency: regularly. * Depression/Suicide Screening: . * During the past 2 weeks, the patient has not felt down, depressed or hopeless. * During the past 2 weeks, the patient has not felt little interest or pleasure in doing things. * Hearing Impairment: Patient has significant hearing impairment, bilaterally, She uses a hearing aid. * Cognitive Impairment: No cognitive impairment observed. * Bathing: performs independently. * Dressing: performs independently. * Walking: performs independently. * Managing Finances: performs independently. * Shopping: performs independently. * Managing Medications: performs independently. * Housework / Basic Home Maintenance: performs independently. * Falls Risk Screening:. KIM has not fallen in the last 6 months. * Home safety risk factors: none. * Advance directives:. Patient has living will. Placed in chart. * Patient's End of Life Decisions: End of life decisions were reviewed with the patient. I agree to follow the patient's decisions. * No headache, chest pain, shortness of breath, dizziness, lightheadedness, or edema * Sees Sanitation Truck Cleaner on a regular basis * Seen Cardiology, started on metoprolol for palpitations and pulmonary hypertension * was in ER this past fall in , had CT (negative evaluation), pain in abdomen and chest lasted4 hours and resolved * pain more in evening, better in AM, started again in the past week, had stopped taking dicyclomine * had scope in 2017 (normal) * had COVID in July * BM good, eating fiber, no constipation, soft stools * dicyclomine helps at times * arthritis stable pain [facility] Work Phone: History of Present illness Narrative* The patient is being seen for the subsequent annual wellness visit. * Past Medical, Surgical and Family History: reviewed and updated in chart. * Medications and Supplements: Review of all medications by a prescribing practitioner or clinical pharmacist (such as prescriptions, OTCs, herbal therapies and supplements) documented in the medical record. * No, the patient is not using opioids. * Patient Self Assessment of Health Status: good. * Tobacco use: Non-User * Alcohol use: Non-User * Illicit drug use: Non-User * Current diet: well balanced diet. * Exercise Frequency: regularly. * Depression/Suicide Screening: . * During the past 2 weeks, the patient has not felt down, depressed or hopeless. * During the past 2 weeks, the patient has not felt little interest or pleasure in doing things. * Hearing Impairment: Patient has significant hearing impairment, bilaterally, She uses a hearing aid. * Cognitive Impairment: No cognitive impairment observed. * Bathing: performs independently. * Dressing: performs independently. * Walking: performs independently. * Managing Finances: performs independently. * Shopping: performs independently. * Managing Medications: performs independently. * Housework / Basic Home Maintenance: performs independently. * Falls Risk Screening:. KIM has not fallen in the last 6 months. * Home safety risk factors: none. * Advance directives:. Patient has living will. Placed in chart. * Patient's End of Life Decisions: End of life decisions were reviewed with the patient. I agree to follow the patient's decisions. * No headache, chest pain, shortness of breath, dizziness, lightheadedness, or edema * Sees Sanitation Truck Cleaner on a regular basis * Seen Cardiology, started on metoprolol for palpitations and pulmonary hypertension * was in ER this past fall in [place], had CT (negative evaluation), pain in abdomen and chest lasted4 hours and resolved * pain more in evening, better in AM, started again in the past week, had stopped taking dicyclomine * had scope in 2017 (normal) * had COVID in July * BM good, eating fiber, no constipation, soft stools * dicyclomine helps at times * arthritis stable pain [facility] Work Phone: History of Present illness NarrativePatient seen today in follow-up for diarrhea. Since beginning low FODMAP diet, dicyclomine and stress reduction her symptoms are 50% better. She still having occasional loose stool but there now for the most part formed. She is averaging 2 bowel movements daily is no longer having any intermittent constipation. She continues to have daily cramping in her left lower quadrant which is more prevalent after evening meal. She denies any rectal bleeding. Last colonoscopy was 4 years ago and revealed a severely tortuous redundant left colon without polyps.[facility] [address] Work Phone: Summary Purpose Family History No Family History Records Found Mother Name Dates Details Family history of heart fail ure(., Z82.49) Status:Active Family history of hypertensi on(.49, Z82.49) Status:Active Father Name Dates Details Family history of heart fail ure(.49, Z82.49) Status:Active Family history of hypertensi on(.49, Z82.49) Status:Active Brother Name Dates Details Family history of acute myoc ardial infarction(7.3, Z82.49) Status:Active Family history of coronary a rtery disease(7.3, Z82.49) Status:Active Mother Name Dates Details Family history of heart fail ure(7.49, Z82.49) Status:Active Family history of hypertensi on(7.49, Z82.49) Status:Active Father Name Dates Details Family history of heart fail ure(V17.49, Z82.49) Status:Active Family history of hypertensi on(V17.49, Z82.49) Status:Active Brother Name Dates Details Family history of acute myoc ardial infarction(V17.3, Z82.49) Status:Active Family history of coronary a rtery disease(V17.3, Z82.49) Status:Active Unknown Family Member Name Dates Details Family history of heart fail ure: Mother, Father(V17.49, Z82.49) Status:Active Family history of hypertensi on: Mother, Father(V17.49, Z82.49) Status:Active Family history of acute myoc ardial infarction: Brother(V17.3, Z82.49) Status:Active Family history of coronary a rtery disease: Brother(V17.3, Z82.49) Status:Active : Daughter Status:Active Unknown Family Member Name Dates Details Family history of heart fail ure: Mother, Father(V17.49, Z82.49) Status:Active Family history of hypertensi on: Mother, Father(V17.49, Z82.49) Status:Active Family history of acute myoc ardial infarction: Brother(V17.3, Z82.49) Status:Active Family history of coronary a rtery disease: Brother(V17.3, Z82.49) Status:Active : Daughter Status:Active Unknown Family Member Name Dates Details : Daughter Status:Active Family history of coronary a rtery disease: Brother(V17.3, Z82.49) Status:Active Family history of acute myoc ardial infarction: Brother(V17.3, Z82.49) Status:Active Family history of hypertensi on: Mother, Father(V17.49, Z82.49) Status:Active Family history of heart fail ure: Mother, Father(V17.49, Z82.49) Status:Active Unknown Family Member Name Dates Details Family history of heart fail ure: Mother, Father(V17.49, Z82.49) Status:Active Family history of hypertensi on: Mother, Father(V17.49, Z82.49) Status:Active Family history of acute myoc ardial infarction: Brother(V17.3, Z82.49) Status:Active Family history of coronary a rtery disease: Brother(V17.3, Z82.49) Status:Active : Daughter Status:Active Unknown Family Member Name Dates Details Family history of heart fail ure: Mother, Father(V17.49, Z82.49) Status:Active Family history of hypertensi on: Mother, Father(V17.49, Z82.49) Status:Active Family history of acute myoc ardial infarction: Brother(V17.3, Z82.49) Status:Active Family history of coronary a rtery disease: Brother(V17.3, Z82.49) Status:Active : Daughter Status:Active Unknown Family Member Name Dates Details Family history of heart fail ure: Mother, Father(V17.49, Z82.49) Status:Active Family history of hypertensi on: Mother, Father(V17.49, Z82.49) Status:Active Family history of acute myoc ardial infarction: Brother(V17.3, Z82.49) Status:Active Family history of coronary a rtery disease: Brother(V17.3, Z82.49) Status:Active : Daughter Status:Active Unknown Family Member Name Dates Details Family history of heart fail ure: Mother, Father(V17.49, Z82.49) Status:Active Family history of hypertensi on: Mother, Father(V17.49, Z82.49) Status:Active Family history of acute myoc ardial infarction: Brother(V17.3, Z82.49) Status:Active Family history of coronary a rtery disease: Brother(V17.3, Z82.49) Status:Active : Daughter Status:Active Unknown Family Member Name Dates Details Family history of heart fail ure: Mother, Father(V17.49, Z82.49) Status:Active Family history of hypertensi on: Mother, Father(V17.49, Z82.49) Status:Active Family history of acute myoc ardial infarction: Brother(V17.3, Z82.49) Status:Active Family history of coronary a rtery disease: Brother(V17.3, Z82.49) Status:Active : Daughter Status:Active Unknown Family Member Name Dates Details : Daughter Status:Active Family history of coronary a rtery disease: Brother(V17.3, Z82.49) Status:Active Family history of acute myoc ardial infarction: Brother(V17.3, Z82.49) Status:Active Family history of hypertensi on: Mother, Father(V17.49, Z82.49) Status:Active Family history of heart fail ure: Mother, Father(V17.49, Z82.49) Status:Active Unknown Family Member Name Dates Details Family history of heart fail ure: Mother, Father(V17.49, Z82.49) Status:Active Family history of hypertensi on: Mother, Father(V17.49, Z82.49) Status:Active Family history of acute myoc ardial infarction: Brother(V17.3, Z82.49) Status:Active Family history of coronary a rtery disease: Brother(V17.3, Z82.49) Status:Active : Daughter Status:Active Unknown Family Member Name Dates Details Family history of heart fail ure: Mother, Father(V17.49, Z82.49) Status:Active Family history of hypertensi on: Mother, Father(V17.49, Z82.49) Status:Active Family history of acute myoc ardial infarction: Brother(V17.3, Z82.49) Status:Active Family history of coronary a rtery disease: Brother(V17.3, Z82.49) Status:Active : Daughter Status:Active Unknown Family Member Name Dates Details Family history of heart fail ure: Mother, Father(V17.49, Z82.49) Status:Active Family history of hypertensi on: Mother, Father(V17.49, Z82.49) Status:Active Family history of acute myoc ardial infarction: Brother(V17.3, Z82.49) Status:Active Family history of coronary a rtery disease: Brother(V17.3, Z82.49) Status:Active : Daughter Status:Active Advance Directives No Advanced Directives Records FoundDocuments on File Type Date Recorded Patient [employer] anation Healthcare Power of Atty 12/17/2022 Documents on File Type Date Recorded Patient [employer] Expl anatformerly [facility] Healthcare Power of Atty 12/17/2022 Chief Complaint Pulmonary hypertensionWELLNES REV LABSWELLNES REV LABSWELLNES REV LABSNPV in office today for diarrhea, abdominal pain. 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 Pt states that the pain was after eating in the middle of the night. Pt is taking IBgard peppermint oil. Neighbor recently passed and is feeling a lot better.WELLNES REV LABSFUV in office today for IBS. Patient states she has abdominal pain on occasion, patient is avoiding dairy as much as possible, patient hasn t been taking th IBguard as much. Paolotent is taking Bentyl and a probiotic which helps.Pulm HTN Reason for Referral Specialty Diagnoses / Procedures Referred By Bere ta Referred To Contact Cardiology Diagnoses Irregular heartbeat Syncope and collapse Procedures Transthoracic Echo (TTE) Complete WA ECHO TRANSTHORC R-T 2D W/WO M-MODE REC F-UP/LMTD WA DOP ECHOCARD COLOR FLOW VELOCITY MAPPING WA DOP ECHOCARD PULSE WAVE W/SPECTRAL F-UP/LMTD STD Milan Reid MD [address] [facility], [facility] [address] [place] [phone] Referral ID Status Reason Start Date Expiration Date Visits Requested Visits Authorized [id number] Pending Review Perform Procedure 3 08/24/2024 1 1 Specialty Diagnoses / Procedures Referred By Bere ta Referred To Contact Diagnoses Irregular heartbeat Procedures ECG 12 lead (Clinic Performed) Milan Reid MD [address] [facility], [facility] [address] [place] [phone] Referral ID Status Reason Start Date Expiration Date V isits Requested Visits Authorized [id number] Pending Review 08/25/2023 08/24/2024 1 1 Referral ID Status Reason Start Date Expiration Date Visits Requested Visits Authorized [id number] Authorized Perform Procedure 3 08/24/2024 1 1 Additional Source Comments INFORMATION SOURCE (unrecogn ized section and content) DATE CREATED AUTHOR AUTHOR'S ORGANIZ ATION 02/14/[address] [facility] DATE CREATED AUTHOR AUTHOR'S ORGANIZ ATION 08/26/2021 [facility] DATE CREATED AUTHOR AUTHOR'S ORGANIZ ATION 08/27/2022 [facility] DATE CREATED AUTHOR AUTHOR'S ORGANIZ ATION 09/07/2022 [facility] DATE CREATED AUTHOR AUTHOR'S ORGANIZ ATION 02/19/2023 [facility] DATE CREATED AUTHOR AUTHOR'S ORGANIZ ATION 09/27/2023 [facility] DATE CREATED AUTHOR AUTHOR'S ORGANIZ ATION 09/28/2023 [facility] Reason for Visit (unrecogniz ed section and content) Specialty Diagnoses / Procedures Referred By Contac t Referred To Contact Diagnoses Irregular heartbeat Procedures ECG 12 lead (Clinic Performed) Milan Reid MD [address] [facility], [place] [address] Referral ID Status Reason Start Date Expiration Date V isits Requested Visits Authorized [id number] Pending Review 08/25/2023 08/24/2024 1 1 Specialty Diagnoses / Procedures Referred By Contac t Referred To Contact Cardiology Diagnoses Irregular heartbeat Syncope and collapse Procedures Transthoracic Echo (TTE) Complete [place] ECHO TRANSTHORC R-T 2D W/WO M-MODE REC F-UP/LMTD WA DOP ECHOCARD COLOR FLOW VELOCITY MAPPING WA DOP ECHOCARD PULSE WAVE W/SPECTRAL F-UP/LMTD STD Milan Reid MD [address] [facility], [facility] [address] [place] [address] Referral ID Status Reason Start Date Expiration Date Visits Requested Visits Authorized [id number] Authorized Perform Procedure 3 08/24/2024 1 1 Reason Comments Sore Throat X1wk, cough, RT Uppe r Back Pain Care Teams (unrecognized sec tion and content) Office Admin Relationship Specialty Start Date End Date Ronal Bradley DO [address] [facility], [place] [address] [place] [phone] PCP - [employer] PCP 09/26/22 Akanksha Millan MD [address] [place] [address] PCP - General Family Medicine 08/31/23 Office Admin Relationship Specialty Start Date End Date Ronal Bradley DO [address] [facility], [place] [address] [place] [address] PCP - [employer] Advantage PCP 09/26/22 Akanksha Millan MD [address] [place] [address] PCP - General Family Medicine 08/31/23 FOR RECORDS PERTAINING TO PATIENTS WHO ARE OR HAVE BEEN ENROLLED IN A CHEMICAL DEPENDENCY/SUBSTANCEABUSE PROGRAM, SOME INFORMATION MAY BE OMITTED. This clinical summary was aggregated from multiple sources. Caution should be exercised in using it in the provision of clinical care. This summary normalizes information from multiple sources, and as a consequence, information in this document may materially change the coding, format and clinical context of patient data. In addition, data may be omitted in some cases. CLINICAL DECISIONS SHOULD BE BASED ON THE PRIMARY CLINICAL RECORDS. [employer] provides no warranty or guarantee of the accuracy or completeness of information in this document.
[2023-10-18 16:42] LABS: AST(SGOT) 44 U/L (15-37); Alanine Aminotransfer ALT/SGPT 40 U/L (13-56); Albumin, Serum 3.5 g/dL (3.2-5.0); Alkaline Phosphatase 51 U/L (45-117); Anion Gap 5 (5-15); BUN 17 mg/dL (7-18); BUN/Creat Ratio 20.7 RATIO (10-20); Calcium,Total 8.8 mg/dL (8.5-10.1); Chloride 103 mmol/L (98-107); Creatinine, Serum 0.82 mg/dL (0.55-1.02); EST Glomerular Filtration Rate 72 mL/min (>60); Est Glom Filt Rate - Afr Amer 87 mL/min (>60); Globulin 3.5 g/dL (2.2-4.2); Glucose 89 mg/dL (74-106); Potassium 3.8 mmol/L (3.5-5.1); Sodium Level 136 mmol/L (136-145)
== END | disposition home or self-care (01) ==
LOC: MTLAB 12:21
PROVIDERS: PCP Family Medicine; Referring Provider Internal Medicine Rheumatology; Visit Provider Internal Medicine Rheumatology
DX: M06.00 Rheumatoid arthritis without rheumatoid factor, unspecified site (principal); Z79.899 Other long term (current) drug therapy
CPT/HCPCS: 36415; 80053

== ENCOUNTER → 2024-01-10 | Outpatient (CLI) | payer MEDICARE, SELFPAY ==
[2024-01-10 12:00] LABS: Absolute Lymphocyte Count 1.17 X10^3/uL (0.83-4.51); Absolute Neutrophil Count 2.7 X10^3/uL (2.0-7.7); Basophil# 0.04 X10^3/uL; Basophil% 0.9 % (0-1); Eosinophil# 0.21 X10^3/uL; Eosinophils% 4.7 % (0-5); Hematocrit 40.7 % (37-47); Hemoglobin 13.2 g/dL (12.0-15.0); Lymphocyte # 1.17 X10^3/ul (0.83-4.51); Lymphocyte % 25.9 % (19-41); Mean Corp Hgb Conc 32.4 g/dL (32-36); Mean Corpuscular Hgb 30.2 pg (27.0-32.0); Mean Corpuscular Volume 93.1 fL (81-99); Mean Platelet Vol. 11.3 fl (6.2-12.0); Monocyte# 0.36 X10^3/uL; NRBC Flagged by Analyzer 0 % (0-5); Neutrophil # 2.72 X10^3/uL (2.7-7.7); Neutrophil % 60.3 % (47-70); Platelet Count 193 K/mm3 (150-450); RBC Distribution Width CV 12.8 % (11.6-14.6); RBC Distribution Width SD 43.8 fl (35.1-43.9); Red Blood Count 4.37 M/mm3 (4.2-5.4); White Blood Count 4.5 K/mm3 (4.4-11.0)
[2024-01-10 12:53] LABS: Vitamin B12 781 pg/mL (211-911)
[2024-01-10 12:57] LABS: ALB/GLOB Ratio 1.1 RATIO (0.9-2.4); AST(SGOT) 41 U/L (15-37); Alanine Aminotransfer ALT/SGPT 45 U/L (13-56); Alkaline Phosphatase 43 U/L (45-117); Anion Gap 3 (5-15); BUN 18 mg/dL (7-18); BUN/Creat Ratio 19.5 RATIO (10-20); Calcium,Total 9.3 mg/dL (8.5-10.1); Chloride 103 mmol/L (98-107); Cholesterol 231 mg/dL (200); Creatinine, Serum 0.92 mg/dL (0.55-1.02); EST Glomerular Filtration Rate 62 mL/min (>60); Est Glom Filt Rate - Afr Amer 76 mL/min (>60); Globulin 3.7 g/dL (2.2-4.2); Glucose 88 mg/dL (74-106); High Density Lipoprotein 91 mg/dL; Potassium 4.1 mmol/L (3.5-5.1); Protein, Total 7.7 g/dL (6.4-8.2); Sodium Level 136 mmol/L (136-145); Triglycerides 84 mg/dL; Very Low Density Lipoprotein 17 mg/dL (5-40)
== END | disposition home or self-care (01) ==
LOC: MTLAB 09:17
PROVIDERS: PCP Family Medicine; Referring Provider Family Medicine; Visit Provider Family Medicine
DX: R53.83 Other fatigue (principal); M06.00 Rheumatoid arthritis without rheumatoid factor, unspecified site; I27.20 Pulmonary hypertension, unspecified; E78.2 Mixed hyperlipidemia; E53.8 Deficiency of other specified B group vitamins; M19.041 Primary osteoarthritis, right hand; M47.892 Other spondylosis, cervical region; M18.11 Unilateral primary osteoarthritis of first carpometacarpal joint, right hand; H81.10 Benign paroxysmal vertigo, unspecified ear; M21.42 Flat foot [pes planus] (acquired), left foot; Z79.899 Other long term (current) drug therapy
CPT/HCPCS: 36415; 80053; 80061; 82607; 85025

== ENCOUNTER 2024-03-12 19:32 | Emergency (ER) | payer MEDICARE, SELFPAY ==
[2024-03-12 19:36] VITALS: BP 117/61; PULSE 91; RESP 18; TEMP 36.2; O2SAT 96; BMI 22.4
--- NOTE | 2024-03-12 20:53 | CT_ITS ---
STUDY: CT BRAIN WITHOUT CONTRAST REASON FOR EXAM: Female, 78 years old. HEADACHE RADIATION DOSAGE (If Supplied By Facility): CTDIvol = ( 44.99 ) mGy, DLP = ( 779.24 ) mGycm TECHNIQUE: Transaxial CT imaging of the brain was performed without administration of intravenous contrast material. Individualized dose optimization techniques were used for this CT. COMPARISON: September 05, 2022. FINDINGS: Normal soft tissue structures. Normal calvarium Plaquing of the cavernous carotids. Mild atrophy and periventricular white matter ischemic changes. Mild calcification of the basal ganglia. Normal brainstem. Normal cerebellum. There is no intracranial hemorrhage. There are no findings of an acute ischemic infarction. Normal visualized paranasal sinuses. CT/Brain/Head without Contrast IMPRESSION: Mild atrophy and periventricular white matter ischemic change. No mass or acute bleed. Electronically Signed: Sherman Chakraborty MD at 21:44 EDT ,
--- NOTE | 2024-03-12 20:53 | EKG12_ITS ---
Test Reason : WEAKNESS Blood Pressure : / mmHG Vent. Rate : 071 BPM Atrial Rate : 071 BPM P-R Int : 160 ms QRS Dur : 134 ms QT Int : 414 ms P-R-T Axes : 072 086 000 degrees QTc Int : 449 ms Normal sinus rhythm Right bundle branch block Abnormal ECG Confirmed by DEDRA GUTIERREZ, ALEIDA ([id number]), technical writer and editor NAZIA ROCA ([id number]) on 03/13/2024 11:30:34 AM Referred By: Confirmed By:ALEIDA COLMENARES MD
--- NOTE | 2024-03-12 20:54 | EDS_ITS ---
HPI History of Present Illness Chief Complaint: General Illness Informant: patient and spouse/S.O. Narrative Narrative: 78-year-old female presenting to the emergency room with fever. Patient states that on Tuesday morning she did not really feel well and by Tuesday afternoon developed a fever around 102 degrees. Tuesday she had an episode of vomiting around noon. She states that she did have 1 diarrhea-like stool. She denies cough sore throat ear pain. No rashes. She has a history of arthritis in her neck and typically has pain in her neck that radiates up to the front of her head. She has been having that increased over the past week but none currently. She states that the pain got worse when she had a fever. She is on hydroxychloroquine as well as methotrexate. She sees cardiology in [place] and has had prior vasovagal syncope. states this morning he found her on the commode and she seemed rather stiff pale and sweaty and she almost fell off the toilet. She came to and did not know what happened. She had another episode at dinner. She denies any chest pain palpitations or really any symptoms before the event. She states that with prior vasovagal syncope she is lost bladder control. She was confused in a manner that she did not know what it just happened to her but not in a postictal sense when talking with her to describe it. Again the episode this evening also did not have a prodrome. She states currently she has been taking Tylenol for the fever and this afternoon she believes her fever broke as she was very sweaty and needed to take a shower. She states that currently she has really no symptoms other than her brain feels like it has cobwebs. [facility] Medical History (Updated 03/13/24 @ 00:[address] Tommie Lopez, DO) Vertigo Rheumatoid arthritis IBS (irritable bowel syndrome) Home Medications ?Medication ?Instructions ?Recorded ?Last Taken ?Type aspirin 81 mg tablet,delayed 81 mg PO DAILY@0800 08/23/13 Unknown History release calcium carbonate 600 mg-vitamin 1 ea PO DAILY 08/23/13 Unknown History D3 10 mcg (400 unit) tablet (Calcium 600 + D(3)) hydroxychloroquine 200 mg tablet 200 mg PO BIDCM 08/23/13 Unknown History meloxicam 15 mg tablet (Mobic) 15 mg PO DAILY PRN PRN Pain 08/23/13 Unknown History multivitamin with folic acid 400 1 tab PO DAILY 08/23/13 Unknown History mcg tablet (Thera) pyridoxine (vitamin B6) 50 mg 100 mg PO DAILY 08/23/13 Unknown History tablet vitamin E (dl, acetate) 180 mg 400 units PO DAILY 08/23/13 Unknown History (400 unit) capsule dicyclomine 20 mg tablet 10 mg PO PRN PRN ibs 06/06/21 Unknown History folic acid 1 mg tablet 1 mg PO DAILY 06/06/21 Unknown History meclizine 12.5 mg tablet 12.5 mg PO BID PRN Vertigo 06/06/21 Unknown History methotrexate sodium 2.5 mg tablet 2.5 mg PO QWEEK 06/06/21 Unknown History metoprolol succinate 25 mg 25 mg PO BID 06/06/21 Unknown History tablet,extended release 24 hr diazepam 5 mg tablet (Valium) 5 mg PO TID #5 tabs 09/05/22 Unknown Rx Allergy/AdvReac Type Severity Reaction Status Date / Time acetaminophen (From Vicodin) Allergy Other Verified 03/12/24 19:36 amoxicillin trihydrate (From Allergy Rash Verified 03/12/24 19:36 Augmentin) hydrocodone bitartrate (From Allergy Other Verified 03/12/24 19:36 Vicodin) potassium clavulanate (From Allergy Rash Verified 03/12/24 19:36 Augmentin) diclofenac sodium (From AdvReac Nausea/Vom/ Verified 03/12/24 19:36 Voltaren) Diarrhea tramadol AdvReac Nausea Verified 03/12/24 19:36 Social History Smoking Status: Never smoker ROS ROS ED Constitutional Constitutional ED: Reports fever(s) and sweats; Denies chills or weight loss Eyes Eyes: Denies change in vision or diplopia ENT ENT ED: Denies ear pain, rhinorrhea or sore throat Cardiovascular Cardiovascular: Reports other Details: ? syncope ; Denies chest pain, orthopnea, palpitations or racing heartbeat Respiratory/Chest Respiratory/Chest: Denies cough, dyspnea or orthopnea Gastrointestinal Gastrointestinal: Reports diarrhea and vomiting; Denies abdominal pain or nausea Genitourinary Genitourinary ED: Denies dysuria, hematuria or urinary frequency Musculoskeletal Musculoskeletal: Reports neck pain; Denies arthralgias, back pain or myalgias Integumentary Denies abscess or rash Neurologic Neurologic: Reports headache(s); Denies weakness Psychiatric Psychiatric: Denies anxiety, depression, suicidal ideation or suicidal thoughts Endocrine Endocrinology: Denies polydipsia, polyphagia or polyuria Allergic/Immunologic Allergic/Immunologic ED: Denies mouth swelling, tongue swelling or urticaria EXAM Physical Exam Const Vital Signs: 03/12/24 19:36 03/12/24 21:19 03/12/24 21:33 Temperature 97.2 F L Temperature Source Temporal Pulse Rate 91 71 Respiratory Rate 18 17 Respiratory Effort Normal Non-Labored Blood Pressure 117/61 Blood Pressure Mean 79 Pulse Ox 96 Oxygen Delivery Method Room Air Room Air 03/12/24 22:00 03/12/24 23:00 Temperature Temperature Source Pulse Rate 76 75 Respiratory Rate 16 18 Respiratory Effort Blood Pressure 138/69 H Blood Pressure Mean 92 Pulse Ox 98 Oxygen Delivery Method Room Air Positive well nourished and well developed General Appearance ED: well developed HEENT Reports normocephalic, head/scalp atraumatic and moist mucous membranes Eyes PERRL and EOMs intact bilaterally Neck no lymphadenopathy, supple and no JVD Resp normal respiratory effort and clear to auscultation bilaterally Cardio regular rate, regular rhythm and no murmurs GI normal to inspection, nondistended, normoactive bowel sounds and non-tender Palpation: soft Back/Spine no CVA tenderness and normal ROM Extremity normal to inspection General Extremety ED: Negative for edema General Extremity: Negative for edema Neuro oriented x3 and CN's II-XII intact bilaterally Sensorium / Orientation: alert Motor Exam: strength 5/5 throughout Psych mental status grossly normal Mood & Affect: Negative for depressed or tearful Skin no rashes or lesions noted and no wounds MDM MDM MDM Narrative Medical decision making narrative: Differential diagnosis includes but not limited to cardiac dysrhythmia vasovagal syncope intracranial hemorrhage meningitis pneumonia UTI viral pneumonitis gastroenteritis dehydration electrolyte abnormality anemia My independent interpretation of the chest x-ray is no acute process. EKG is normal sinus rhythm with right bundle branch block which is old. White count 3.6. She has been leukopenic many times in the past. Hemoglobin 12.4 platelet count of 104. INR 1.2 with a PTT of 31.1. CO2 24 anion gap of 8 BUN of 20 creatinine 1.08. Lactic acid 0.9. AST of 127 ALT of 124. Urinalysis is essentially negative. Normal bilirubin. CT the brain showed no acute findings. Patient's been drinking fluids. Her first urination was rather dark but she urinated again and this time she notes it was clear. Shared decision making with her and the patient was used throughout the ED course. She has remained afebrile no events on the monitor. Normal tensive. Her headache is not consistent and comes and goes and was present before she had a fever. I do not believe she has meningitis based on the physical exam or from the history. I would recommend continued oral hydration. Fever control as needed. If no improvement would follow-up. I cannot explain the unresponsive episode but as she was pale and sweaty during the event and there was no significant postictal symptoms I doubt that it is seizure related. Patient and her are comfortable with the workup and discharge home. Return if worsening or concerns History & Record Review Discussion w/independent historian: Patient and Significant other Lab Data Attestation: I reviewed the patient's lab results. Labs: Laboratory Results - last 24 hr 03/12/24 03/12/24 21:05 21:10 WBC 3.6 L RBC 4.04 L Hgb 12.4 Hct 37.5 MCV 92.8 MCH 30.7 MCHC 33.1 RDW Std Deviation 49.1 H RDW Coeff of Taras 14.5 Plt Count 104 L MPV 10.9 Immature Gran % (Auto) 0.600 Neut % (Auto) 90.5 H Lymph % (Auto) 4.4 L Da[place]hin % (Auto) 3.6 Eos % (Auto) 0.3 Baso % (Auto) 0.6 Absolute Neuts (auto) 3.3 Absolute Lymphs (auto) 0.16 L Nucleated RBC % 0 PT 14.9 INR 1.2 APTT 31.1 Sodium 131 L Potassium 3.6 Chloride 99 Carbon Dioxide 24.0 Anion Gap 8 BUN 20 H Creatinine 1.08 H Estim Creat Clear Calc 40.19 Est GFR (MDRD) Af Amer 63 Est GFR (MDRD) Non-Af 52 L BUN/Creatinine Ratio 18.5 Glucose 136 H Lactic Acid 0.9 Calcium 8.6 Total Bilirubin 0.70 Direct Bilirubin 0.28 AST 127 H ALT 124 H Alkaline Phosphatase 74 Troponin I High Sens 11 Total Protein 6.8 Albumin 3.1 L Globulin 3.7 Urine Color Yellow Urine Clarity Clear Urine pH 6.0 Ur Specific [place] 1.015 Urine Protein 30 H Urine Glucose (UA) Normal Urine Ketones Negative Urine Occult Blood 25 H Urine Nitrite Negative Urine Bilirubin Negative Urine Urobilinogen 1 H Ur Leukocyte Esterase 25 H Urine RBC 0 SEEN Urine WBC 0 SEEN Ur Squamous Epith Cells 0 SEEN Urine Bacteria 0 SEEN Hyaline Casts 0-5 SEEN Urine Mucus 0 SEEN Radiography Diagnostic Testing: Clinical Impression(s) from Imaging Studies Chest X-Ray 03/12/24 20:55 IMPRESSION: No acute cardiopulmonary pathology. Electronically Signed: Sherman Chakraborty MD at 21:30 EDT , EKG Initial EKG: Attestation: I personally reviewed and interpreted this EKG as follows: Comments: Normal sinus rhythm ventricular rate of 71 right bundle branch block Discharge Plan Triage Chief Complaint: General Illness ED Provider: Tommie Lopez Dx/Rx/DC Orders Clinical Impression: Acute febrile illness, Unresponsive episode Instructions: ED FUO Adult Prescriptions: No Action meloxicam [Mobic] 15 MG tablet 15 mg PO DAILY PRN PRN (Reason: Pain) aspirin 81 MG tablet 81 mg PO DAILY@0800 pyridoxine (vitamin B6) 50 MG tablet 100 mg PO DAILY hydroxychloroquine 200 MG tablet 200 mg PO BIDCM calcium carbonate-vitamin D3 [Calcium 600 + D(3)] 1 EACH tablet 1 ea PO DAILY vitamin E (dl, acetate) 400 UNITS capsule 400 units PO DAILY multivitamin with folic acid [Thera] 1 TABLET tablet 1 tab PO DAILY meclizine 12.5 mg Tablet 12.5 mg PO BID PRN (Reason: Vertigo) methotrexate sodium 2.5 mg Tablet 2.5 mg PO QWEEK dicyclomine 20 mg tablet 10 mg PO PRN PRN (Reason: ibs) Patient Comments: 1/2 tablet by mouth as directed 10 mg prn folic acid 1 mg Tablet 1 mg PO DAILY metoprolol succinate 25 mg Tablet Extended Release 24 Hr 25 mg PO BID diazepam [Valium] 5 mg tablet 5 mg PO TID Qty: 5 0RF Primary Care Provider: Rashid Segura Referrals: Rashid Segura MD [Primary Care Provider] - 1-2 Days if not improving Print Language: Colombian Disposition Disposition: Home, Self Care
--- NOTE | 2024-03-12 20:55 | RAD_ITS ---
STUDY: X-RAY CHEST REASON FOR EXAM: Female, 78 years old. FEVER TECHNIQUE: AP portable COMPARISON: June 06, 2021 FINDINGS: The lungs are clear and expanded. There is no demonstrated pleural abnormality. Normal size heart. Normal mediastinum and ronald. Normal visualized pulmonary arteries. Normal visualized aortic arch and descending thoracic aorta. Dorsal spine demonstrates mild degenerative change. Normal visualized ribs, clavicles, and shoulders. There is no demonstrated abnormality of the visualized soft tissue structures of the upper abdomen. RAD/Chest 1 View (Portable) IMPRESSION: No acute cardiopulmonary pathology. Electronically Signed: Sherman Chakraborty MD at 21:30 EDT ,
[2024-03-12] MEDS: 0.9% Normal Saline (1000mL) 1,000 ML 1000 ML IV (21:17)
[2024-03-12 21:31] LABS: Bacteria 0 SEEN /hpf (None Seen); Mucous, Urine 0 SEEN /hpf (<or=2+); Red Blood Cells-Urine 0 SEEN /hpf (0-5); Squamous Epithelial Cells - UA 0 SEEN /hpf (5-10); White Blood Cells 0 SEEN /hpf (0-5)
[2024-03-12 21:33] VITALS: PULSE 71; RESP 17
[2024-03-12 21:35] LABS: Absolute Lymphocyte Count 0.16 X10^3/uL (0.83-4.51); Absolute Neutrophil Count 3.3 X10^3/uL (2.0-7.7); Basophil# 0.02 X10^3/uL; Basophil% 0.6 % (0-1); Eosinophil# 0.01 X10^3/uL; Eosinophils% 0.3 % (0-5); Hematocrit 37.5 % (37-47); Hemoglobin 12.4 g/dL (12.0-15.0); Lymphocyte # 0.16 X10^3/ul (0.83-4.51); Lymphocyte % 4.4 % (19-41); Mean Corp Hgb Conc 33.1 g/dL (32-36); Mean Corpuscular Hgb 30.7 pg (27.0-32.0); Mean Corpuscular Volume 92.8 fL (81-99); Mean Platelet Vol. 10.9 fl (6.2-12.0); Monocyte# 0.13 X10^3/uL; Monocyte% 3.6 % (0-10); NRBC Flagged by Analyzer 0 % (0-5); Neutrophil # 3.26 X10^3/uL (2.7-7.7); Neutrophil % 90.5 % (47-70); POSITIVE DIFFERENTIAL YES; Platelet Count 104 K/mm3 (150-450); RBC Distribution Width CV 14.5 % (11.6-14.6); RBC Distribution Width SD 49.1 fl (35.1-43.9); Red Blood Count 4.04 M/mm3 (4.2-5.4); White Blood Count 3.6 K/mm3 (4.4-11.0)
[2024-03-12 21:40] LABS: Color, Urine Yellow (Yellow); Glucose, Dipstick Normal (Normal); Ketone-Dipstick Negative (Negative); Leukocyte Esterase-Dipstick 25 /ul (Negative); Nitrite-Dipstick Negative (Negative); Occult Blood-Urine 25 /ul (Negative); Protein-Dipstick 30 mg/dl (Negative); Specific Gravity, Urine 1.015 (1.002-1.030); Urine Bilirubin Dipstick Negative (Negative); Urine Clarity Clear (Clear); Urine Urobilinogen 1 mg/dl (Normal)
[2024-03-12 21:52] LABS: International Normalized Ratio 1.2; Prothrombin Time (Protime)PT. 14.9 SECONDS (11.7-14.9)
[2024-03-12 21:54] LABS: Partial Thromboplast Time 31.1 Seconds (24.1-36.2)
[2024-03-12 21:59] LABS: AST(SGOT) 127 U/L (15-37); Alanine Aminotransfer ALT/SGPT 124 U/L (13-56); Albumin, Serum 3.1 g/dL (3.2-5.0); Alkaline Phosphatase 74 U/L (45-117); Anion Gap 8 (5-15); BUN 20 mg/dL (7-18); BUN/Creat Ratio 18.5 RATIO (10-20); Bilirubin, Direct 0.28 mg/dL (0.00-0.30); Calcium,Total 8.6 mg/dL (8.5-10.1); Chloride 99 mmol/L (98-107); Creatinine, Serum 1.08 mg/dL (0.55-1.02); EST Glomerular Filtration Rate 52 mL/min (>60); Est Glom Filt Rate - Afr Amer 63 mL/min (>60); Estimated Creatinine Clearance 40.19 ml/min; Globulin 3.7 g/dL (2.2-4.2); Glucose 136 mg/dL (74-106); Potassium 3.6 mmol/L (3.5-5.1); Protein, Total 6.8 g/dL (6.4-8.2); Sodium Level 131 mmol/L (136-145); Troponin-I HS 11 pg/mL (3.0-54.0)
[2024-03-12 22:00] VITALS: PULSE 76; RESP 16
[2024-03-12 22:13] LABS: Hyaline Cast 0-5 SEEN /lpf (0-5)
[2024-03-12 22:18] LABS: Lactic Acid 0.9 mmol/L (0.4-1.9)
[2024-03-12 23:00] VITALS: BP 138/69; PULSE 75; RESP 18; O2SAT 98
[2024-03-13 00:16] VITALS: BP 138/86; PULSE 82; RESP 14; TEMP 36.6; O2SAT 97
== END 2024-03-13 00:21 | disposition home or self-care (01) ==
PROVIDERS: Emergency Provider Emergency Medicine; PCP Family Medicine; Visit Provider Emergency Medicine
DX: R50.9 Fever, unspecified (principal); M06.9 Rheumatoid arthritis, unspecified; R40.4 Transient alteration of awareness; K58.9 Irritable bowel syndrome, unspecified; Z79.1 Long term (current) use of non-steroidal anti-inflammatories (NSAID); Z79.82 Long term (current) use of aspirin; Z79.899 Other long term (current) drug therapy
CPT/HCPCS: 70450; 71045; 80048; 80076; 81001; 83605; 84484; 85025; 85610; 85730; 87040; 87631; 93005; 96360; 99283; J7030; A4216

== ENCOUNTER 2024-04-05 09:12 | Emergency (ER) | payer MEDICARE, SELFPAY ==
[2024-04-05 09:13] VITALS: BP 201/88; PULSE 74; RESP 16; TEMP 36.4; O2SAT 99; BMI 22.4
--- NOTE | 2024-04-05 09:38 | EDS_ITS ---
HPI History of Present Illness Chief Complaint: Back Informant: patient Onset/Context/Timing Onset: Weeks (2) Context: Gradual Onset Timing: Intermittent Quality: Sharp, Aching and - (Stabbing) Location: Lumbar and Right Leg Worsened by: improves with Night time pain Relieved by: - (Massage) Associated Symptoms Associated Symptoms: Radiation to Right Leg; Negative for Numbness, Tingling, Radiation to Left Leg, Fever, Abdominal Pain, Dysuria, Unable to Ambulate, Unable to Transfer, Urinary Retention, Urinary Incontinence, Constipation or Fecal Incontinence Narrative Narrative: Patient presents with back pain that has been intermittent over the last 2 weeks. Patient states her pain gets worse at nighttime and gets better by noon time. Patient states her pain is mainly over her lower lumbar area. Patient denies any radiation to her abdomen. Patient states her pain does radiate down her right leg. Patient states that sometimes it gets better with massaging the area. Patient denies any trauma or injury. Patient describes her pain as aching, sharp, and stabbing. Patient states she has been prescribed muscle relaxers in the past with no relief. Patient was recently prescribed a tapering course of prednisone which she finished today. Patient states this has not helped. Patient does have a history of rheumatoid arthritis. [facility] Medical History Vertigo Rheumatoid arthritis IBS (irritable bowel syndrome) Home Medications ?Medication ?Instructions ?Recorded ?Last Taken ?Type aspirin 81 mg tablet,delayed 81 mg PO DAILY@0800 08/23/13 Unknown History release calcium carbonate 600 mg-vitamin 1 ea PO DAILY 08/23/13 Unknown History D3 10 mcg (400 unit) tablet (Calcium 600 + D(3)) hydroxychloroquine 200 mg tablet 200 mg PO BIDCM 08/23/13 Unknown History meloxicam 15 mg tablet (Mobic) 15 mg PO DAILY PRN PRN Pain 08/23/13 Unknown History multivitamin with folic acid 400 1 tab PO DAILY 08/23/13 Unknown History mcg tablet (Thera) pyridoxine (vitamin B6) 50 mg 100 mg PO DAILY 08/23/13 Unknown History tablet vitamin E (dl, acetate) 180 mg 400 units PO DAILY 08/23/13 Unknown History (400 unit) capsule dicyclomine 20 mg tablet 10 mg PO PRN PRN ibs 06/06/21 Unknown History folic acid 1 mg tablet 1 mg PO DAILY 06/06/21 Unknown History meclizine 12.5 mg tablet 12.5 mg PO BID PRN Vertigo 06/06/21 Unknown History methotrexate sodium 2.5 mg tablet 2.5 mg PO QWEEK 06/06/21 Unknown History metoprolol succinate 25 mg 25 mg PO BID 06/06/21 Unknown History tablet,extended release 24 hr diazepam 5 mg tablet (Valium) 5 mg PO TID #5 tabs 09/05/22 Unknown Rx oxycodone-acetaminophen 5 mg-325 1 tab PO Q8H PRN pain 3 days #10 04/05/24 Unknown Rx mg tablet (Percocet) tabs Allergy/AdvReac Type Severity Reaction Status Date / Time acetaminophen (From Vicodin) Allergy Other Verified 04/05/24 09:14 amoxicillin trihydrate (From Allergy Rash Verified 04/05/24 09:14 Augmentin) hydrocodone bitartrate (From Allergy Other Verified 04/05/24 09:14 Vicodin) potassium clavulanate (From Allergy Rash Verified 04/05/24 09:14 Augmentin) diclofenac sodium (From AdvReac Nausea/Vom/ Verified 04/05/24 09:14 Voltaren) Diarrhea tramadol AdvReac Nausea Verified 04/05/24 09:14 Social History Smoking Status: Never smoker ROS ROS ED Constitutional Constitutional ED: Denies chills or fever(s) Eyes Eyes: Denies blurry vision or change in vision ENT ENT ED: Denies rhinorrhea or sore throat Cardiovascular Cardiovascular: Denies chest pain or palpitations Respiratory/Chest Respiratory/Chest: Denies cough or dyspnea Gastrointestinal Gastrointestinal: Denies nausea or vomiting Genitourinary Genitourinary ED: Denies dysuria or hematuria Musculoskeletal Musculoskeletal: Reports back pain and neck pain Integumentary Denies abscess or rash Neurologic Neurologic: Denies headache(s) or weakness Allergic/Immunologic Allergic/Immunologic ED: Denies mouth swelling or urticaria EXAM Physical Exam Const Vital Signs: 04/05/24 09:13 04/05/24 11:19 04/05/24 13:00 Temperature 97.6 F L Temperature Source Temporal Pulse Rate 74 72 78 Respiratory Rate 16 16 17 Blood Pressure 201/88 H 139/76 H 147/71 H Blood Pressure Mean 125 97 96 Pulse Ox 99 98 98 Oxygen Delivery Method Room Air Room Air Room Air Positive well nourished and well developed General Appearance ED: well developed and NAD HEENT Reports moist mucous membranes Neck supple and no JVD Cardio regular rate and regular rhythm Rhythm: abnormal rhythm ectopic beats (Occasional) GI soft to palpation, non-tender and non-distended Back/Spine Back/Spine Narrative: There is mild tenderness over the right lumbar paraspinal muscles. There is no midline tenderness. There is no bony crepitance or step-off. Range of motion was slightly limited in all motions of the lumbar spine secondary to pain. Lumbar Spine / Lower Back: ROM limited and straight leg raise negative bilaterally Extremity normal to inspection Neuro oriented x3 and no sensory deficits noted Sensorium / Orientation: alert Motor Exam: strength 5/5 throughout Deep Tendon Reflexes: Rt Patellar (L4): 2+, Lt Patellar (L4): 2+, Rt Ankle (S1): 2+ and Lt Ankle (S1): 2+ Deep Tendon Reflexes Back: Rt Patellar (L4): 2+, Lt Patellar (L4): 2+, Rt Ankle (S1): 2+ and Lt Ankle (S1): 2+ Psych mental status grossly normal MDM MDM MDM Narrative Medical decision making narrative: Differential diagnosis includes lumbosacral strain, lumbar radiculopathy, abdominal aortic aneurysm, aortic dissection, rheumatoid arthritis flare, urinary tract infection, and ureteral calculus. CBC will be obtained to assess for leukocytosis and anemia. Comprehensive metabolic profile will be obtained to assess for hepatic function, renal function, and electrolyte abnormality. Urinalysis will be obtained to assess for urinary tract infection or hematuria. Lipase will be obtained to assess for pancreatitis. CT scan of the abdomen pelvis will be obtained to assess for aortic dissection, aortic aneurysm, and ureteral calculus. Lab Data Attestation: I reviewed the patient's lab results. Lab results narrative: CBC was reviewed. There is a mild anemia with a hemoglobin of 11.6 and hematocrit 34.9. Comprehensive metabolic profile was reviewed. BUN was slightly elevated at 31. Glucose was slightly elevated at 112. Sodium was slightly low at 134. The remainder is within normal limits. Lipase was reviewed and was normal at 72. Urinalysis was reviewed. There is no evidence of urinary tract infection or hematuria. Labs: Laboratory Results - last 24 hr 04/05/24 10:15 WBC 8.6 RBC 3.73 L Hgb 11.6 L Hct 34.9 L MCV 93.6 MCH 31.1 MCHC 33.2 RDW Std Deviation 52.1 H RDW Coeff of Taras 15.0 H Plt Count 218 MPV 10.8 Immature Gran % (Auto) 0.700 Neut % (Auto) 89.0 H Lymph % (Auto) 6.6 L Antelope % (Auto) 3.0 Eos % (Auto) 0.5 Baso % (Auto) 0.2 Absolute Neuts (auto) 7.7 Absolute Lymphs (auto) 0.57 L Nucleated RBC % 0 Sodium 134 L Potassium 3.9 Chloride 102 Carbon Dioxide 29.0 Anion Gap 3 L BUN 31 H Creatinine 0.84 Estim Creat Clear Calc 51.67 Est GFR (MDRD) Af Amer 84 Est GFR (MDRD) Non-Af 69 BUN/Creatinine Ratio 36.8 H Glucose 112 H Calcium 8.7 Total Bilirubin 0.60 AST 22 ALT 32 Alkaline Phosphatase 60 Total Protein 6.8 Albumin 3.1 L Globulin 3.7 Albumin/Globulin Ratio 0.8 L Lipase 72 Urine Color Yellow Urine Clarity Clear Urine pH 7.0 Ur Specific Harmony 1.005 Urine Protein Negative Urine Glucose (UA) Normal Urine Ketones Negative Urine Occult Blood Negative Urine Nitrite Negative Urine Bilirubin Negative Urine Urobilinogen Normal Ur Leukocyte Esterase Negative Urine RBC 0 SEEN Urine WBC 0 SEEN Ur Squamous Epith Cells 0 SEEN Urine Bacteria RARE Urine Mucus 0 SEEN Radiography Diagnostic Testing: Clinical Impression(s) from Imaging Studies Abdomen/Pelvis CT 04/05/24 10:06 IMPRESSION: Distended gallbladder with the dilatation of the common bile duct and pancreatic duct with fullness in the region of the head and uncinate process of the pancreas. There is atrophy of the body and tail portion of the pancreas. Electronically Signed: Luis Munson MD at 11:41 EDT , CT scan of the abdomen and pelvis was obtained. There is a distended gallbladder with dilatation of the common bile duct and pancreatic duct. There is fullness in the region of the head and uncinate process of the pancreas. This was interpreted by the radiologist was also independently reviewed by myself. Treatment and Re-Evaluation Narrative: Patient was given IV fluids. Patient was advised of her findings. Patient was given a prescription for a short course of [place]. Patient was instructed to continue her other medications as previously prescribed. Patient was instructed to follow-up with her primary care physician in 3 to 5 days. Patient was instructed to return if worse in any way. Patient understood and was agreeable with the plan. All questions were answered. Discharge Plan Triage Chief Complaint: Back ED Provider: Bobo Nelson Dx/Rx/DC Orders Clinical Impression: Low back pain, Hx of rheumatoid arthritis Instructions: ED Back and Neck Pain, General, ED Pain, Acute, Uncertain Cause Prescriptions: New oxycodone-acetaminophen [Percocet] 5-325 mg tablet 1 tab PO Q8H PRN (Reason: pain) 3 Days Qty: 10 0RF No Action meloxicam [Mobic] 15 MG tablet 15 mg PO DAILY PRN PRN (Reason: Pain) aspirin 81 MG tablet 81 mg PO DAILY@0800 pyridoxine (vitamin B6) 50 MG tablet 100 mg PO DAILY hydroxychloroquine 200 MG tablet 200 mg PO BIDCM calcium carbonate-vitamin D3 [Calcium 600 + D(3)] 1 EACH tablet 1 ea PO DAILY vitamin E (dl, acetate) 400 UNITS capsule 400 units PO DAILY multivitamin with folic acid [Thera] 1 TABLET tablet 1 tab PO DAILY meclizine 12.5 mg Tablet 12.5 mg PO BID PRN (Reason: Vertigo) methotrexate sodium 2.5 mg Tablet 2.5 mg PO QWEEK dicyclomine 20 mg tablet 10 mg PO PRN PRN (Reason: ibs) Patient Comments: 1/2 tablet by mouth as directed 10 mg prn folic acid 1 mg Tablet 1 mg PO DAILY metoprolol succinate 25 mg Tablet Extended Release 24 Hr 25 mg PO BID diazepam [Valium] 5 mg tablet 5 mg PO TID Qty: 5 0RF Primary Care Provider: Rashid Segura Referrals: Rashid Segura MD [Primary Care Provider] - 3-5 Days Print Language: Romansh Disposition Disposition: Home, Self Care
--- NOTE | 2024-04-05 10:06 | CT_ITS ---
STUDY: CT ABDOMEN AND PELVIS WITH CONTRAST REASON FOR EXAM: Female, 78 years old. Back pain RADIATION DOSAGE (If Supplied By Facility): CTDIvol = ( 10.44 ) mGy, DLP = ( 372.31 ) mGycm TECHNIQUE: Transaxial images were obtained from the dome of the diaphragm to the symphysis pubis without oral contrast. IV 100mL Isovue-300 was administered. Sagittal and coronal images were reconstructed. Individualized dose optimization techniques were used for this CT. COMPARISON: Comparison is made with prior study dated June 06, 2021. FINDINGS: The visualized lung bases are unremarkable. Coronary artery calcification. Subcentimeters cyst in the inferior lateral aspect of the right lobe of the liver. There is a distended gallbladder. Dilated common bile duct. Normal spleen. Dilated pancreatic duct. Questionable mass in the head and uncinate process of the pancreas. Normal bilateral adrenal glands. Normal right kidney. Normal left kidney. Normal visualized stomach. Normal small intestine. Normal colon. The appendix is visualized and appears normal. There is diffuse atherosclerotic calcification of the abdominal aorta, without a demonstrated aneurysm. Normal inferior vena cava. Normal retroperitoneum. Distended urinary bladder. Normal abdominal wall. Normal osseous structures. CT/Abdomen/Pelvis W IV Cont ONLY IMPRESSION: Distended gallbladder with the dilatation of the common bile duct and pancreatic duct with fullness in the region of the head and uncinate process of the pancreas. There is atrophy of the body and tail portion of the pancreas. Electronically Signed: Luis Munson MD at 11:41 EDT ,
[2024-04-05] MEDS: 0.9% Normal Saline (1000mL) 1,000 ML 1000 ML IV (10:16)
[2024-04-05 10:24] LABS: Mucous, Urine 0 SEEN /hpf (<or=2+); Red Blood Cells-Urine 0 SEEN /hpf (0-5); Squamous Epithelial Cells - UA 0 SEEN /hpf (5-10); White Blood Cells 0 SEEN /hpf (0-5)
[2024-04-05 10:26] LABS: Absolute Lymphocyte Count 0.57 X10^3/uL (0.83-4.51); Absolute Neutrophil Count 7.7 X10^3/uL (2.0-7.7); Basophil# 0.02 X10^3/uL; Basophil% 0.2 % (0-1); Color, Urine Yellow (Yellow); Eosinophil# 0.04 X10^3/uL; Eosinophils% 0.5 % (0-5); Glucose, Dipstick Normal (Normal); Hematocrit 34.9 % (37-47); Hemoglobin 11.6 g/dL (12.0-15.0); Ketone-Dipstick Negative (Negative); Leukocyte Esterase-Dipstick Negative /ul (Negative); Lymphocyte # 0.57 X10^3/ul (0.83-4.51); Lymphocyte % 6.6 % (19-41); Mean Corp Hgb Conc 33.2 g/dL (32-36); Mean Corpuscular Hgb 31.1 pg (27.0-32.0); Mean Corpuscular Volume 93.6 fL (81-99); Mean Platelet Vol. 10.8 fl (6.2-12.0); Monocyte# 0.26 X10^3/uL; NRBC Flagged by Analyzer 0 % (0-5); Neutrophil # 7.65 X10^3/uL (2.7-7.7); Nitrite-Dipstick Negative (Negative); Occult Blood-Urine Negative /ul (Negative); POSITIVE DIFFERENTIAL YES; Platelet Count 218 K/mm3 (150-450); Protein-Dipstick Negative (Negative); RBC Distribution Width SD 52.1 fl (35.1-43.9); Red Blood Count 3.73 M/mm3 (4.2-5.4); Specific Gravity, Urine 1.005 (1.002-1.030); Urine Bilirubin Dipstick Negative (Negative); Urine Clarity Clear (Clear); Urine Urobilinogen Normal (Normal); White Blood Count 8.6 K/mm3 (4.4-11.0)
[2024-04-05 10:46] LABS: Bacteria RARE /hpf (None Seen)
[2024-04-05 10:50] LABS: ALB/GLOB Ratio 0.8 RATIO (0.9-2.4); AST(SGOT) 22 U/L (15-37); Alanine Aminotransfer ALT/SGPT 32 U/L (13-56); Albumin, Serum 3.1 g/dL (3.2-5.0); Alkaline Phosphatase 60 U/L (45-117); Anion Gap 3 (5-15); BUN 31 mg/dL (7-18); BUN/Creat Ratio 36.8 RATIO (10-20); Calcium,Total 8.7 mg/dL (8.5-10.1); Chloride 102 mmol/L (98-107); Creatinine, Serum 0.84 mg/dL (0.55-1.02); EST Glomerular Filtration Rate 69 mL/min (>60); Est Glom Filt Rate - Afr Amer 84 mL/min (>60); Estimated Creatinine Clearance 51.67 ml/min; Globulin 3.7 g/dL (2.2-4.2); Glucose 112 mg/dL (74-106); Lipase 72 U/L (13-75); Potassium 3.9 mmol/L (3.5-5.1); Protein, Total 6.8 g/dL (6.4-8.2); Sodium Level 134 mmol/L (136-145)
[2024-04-05 11:19] VITALS: BP 139/76; PULSE 72; RESP 16; O2SAT 98
[2024-04-05 13:00] VITALS: BP 147/71; PULSE 78; RESP 17; O2SAT 98
[2024-04-05 15:06] VITALS: BP 141/77; PULSE 66; RESP 16; TEMP 36.4; O2SAT 97
== END 2024-04-05 15:07 | disposition home or self-care (01) ==
PROVIDERS: Emergency Provider Emergency Medicine; PCP Family Medicine; Visit Provider Emergency Medicine
DX: M54.50 Low back pain, unspecified (principal); M06.9 Rheumatoid arthritis, unspecified; Z79.82 Long term (current) use of aspirin; Z79.899 Other long term (current) drug therapy
CPT/HCPCS: 74177; 80053; 81001; 83690; 85025; 96360; 99283; J7030; Q9967; A4216

== ENCOUNTER → 2024-06-22 | Outpatient (CLI) | payer MEDICARE, SELFPAY ==
[2024-06-22 12:49] LABS: Absolute Lymphocyte Count 1.31 X10^3/uL (0.83-4.51); Absolute Neutrophil Count 2.5 X10^3/uL (2.0-7.7); Basophil# 0.03 X10^3/uL; Basophil% 0.7 % (0-1); Eosinophil# 0.16 X10^3/uL; Eosinophils% 3.7 % (0-5); Hematocrit 39.1 % (37-47); Hemoglobin 12.5 g/dL (12.0-15.0); Lymphocyte # 1.31 X10^3/ul (0.83-4.51); Mean Corpuscular Hgb 30.6 pg (27.0-32.0); Mean Corpuscular Volume 95.8 fL (81-99); Mean Platelet Vol. 11.2 fl (6.2-12.0); Monocyte# 0.33 X10^3/uL; Monocyte% 7.6 % (0-10); NRBC Flagged by Analyzer 0 % (0-5); Neutrophil # 2.52 X10^3/uL (2.7-7.7); Neutrophil % 57.8 % (47-70); POSITIVE COUNT YES; RBC Distribution Width CV 13.4 % (11.6-14.6); Red Blood Count 4.08 M/mm3 (4.2-5.4); White Blood Count 4.4 K/mm3 (4.4-11.0)
[2024-06-22 13:23] LABS: ALB/GLOB Ratio 1.1 RATIO (0.9-2.4); AST(SGOT) 39 U/L (15-37); Alanine Aminotransfer ALT/SGPT 43 U/L (13-56); Albumin, Serum 3.9 g/dL (3.2-5.0); Alkaline Phosphatase 39 U/L (45-117); Anion Gap 3 (5-15); BUN 21 mg/dL (7-18); BUN/Creat Ratio 24.2 RATIO (10-20); Calcium,Total 9.4 mg/dL (8.5-10.1); Chloride 104 mmol/L (98-107); Creatinine, Serum 0.87 mg/dL (0.55-1.02); EST Glomerular Filtration Rate 67 mL/min (>60); Est Glom Filt Rate - Afr Amer 81 mL/min (>60); Globulin 3.6 g/dL (2.2-4.2); Glucose 82 mg/dL (74-106); Potassium 4.2 mmol/L (3.5-5.1); Protein, Total 7.5 g/dL (6.4-8.2); Sodium Level 138 mmol/L (136-145)
[2024-06-22 14:18] LABS: Differential Indicated SCAN CRITERIA MET
[2024-06-22 14:20] LABS: Platelet Estimate ADEQUATE (ADEQ)
== END | disposition home or self-care (01) ==
LOC: MTLAB 11:05
PROVIDERS: PCP Family Medicine; Referring Provider Internal Medicine Rheumatology; Visit Provider Internal Medicine Rheumatology
DX: M06.00 Rheumatoid arthritis without rheumatoid factor, unspecified site (principal); Z79.899 Other long term (current) drug therapy
CPT/HCPCS: 36415; 80053; 85025

== ENCOUNTER → 2024-07-24 | Outpatient (CLI) | payer MEDICARE, SELFPAY ==
[2024-07-24 15:16] LABS: Absolute Lymphocyte Count 1.33 X10^3/uL (0.83-4.51); Basophil# 0.04 X10^3/uL; Basophil% 0.8 % (0-1); Hematocrit 36.5 % (37-47); Lymphocyte # 1.33 X10^3/ul (0.83-4.51); Lymphocyte % 26.8 % (19-41); Mean Corp Hgb Conc 32.9 g/dL (32-36); Mean Corpuscular Hgb 31.5 pg (27.0-32.0); Mean Corpuscular Volume 95.8 fL (81-99); Mean Platelet Vol. 10.7 fl (6.2-12.0); Monocyte# 0.41 X10^3/uL; Monocyte% 8.3 % (0-10); NRBC Flagged by Analyzer 0 % (0-5); Neutrophil # 2.97 X10^3/uL (2.7-7.7); Neutrophil % 59.9 % (47-70); Platelet Count 165 K/mm3 (150-450); RBC Distribution Width CV 13.6 % (11.6-14.6); RBC Distribution Width SD 47.6 fl (35.1-43.9); Red Blood Count 3.81 M/mm3 (4.2-5.4)
[2024-07-24 15:59] LABS: ALB/GLOB Ratio 1.1 RATIO (0.9-2.4); AST(SGOT) 42 U/L (15-37); Alanine Aminotransfer ALT/SGPT 44 U/L (13-56); Albumin, Serum 3.7 g/dL (3.2-5.0); Alkaline Phosphatase 44 U/L (45-117); Anion Gap 5 (5-15); BUN 24 mg/dL (7-18); BUN/Creat Ratio 24.9 RATIO (10-20); Calcium,Total 9.4 mg/dL (8.5-10.1); Chloride 104 mmol/L (98-107); Creatinine, Serum 0.96 mg/dL (0.55-1.02); EST Glomerular Filtration Rate 59 mL/min (>60); Est Glom Filt Rate - Afr Amer 72 mL/min (>60); Globulin 3.5 g/dL (2.2-4.2); Glucose 115 mg/dL (74-106); Protein, Total 7.2 g/dL (6.4-8.2); Sodium Level 138 mmol/L (136-145)
--- OUTSIDE RECORDS SUMMARY | 2024-07-24 19:11 | XMS RPT_ITS | CCD ---
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 Akanksha Wyman Referring Unav ailable Millan, Dr. Akanksha Wyman Attending Unav ailable Millan, Dr. Akanksha Wyman Primary Care Unav ailable Akanksha Millan MD Primary Care Provider [phone] Rogers Bradley DO Unavailable Akanksha Millan MD Primary Care Provider MILAN REID Attending Unavailable MILLAN, CHRISTOPHER D Primary Care Unavailable ARASELI MCDERMOTT Attending Unavailable MILLAN, CHRISTOPHER D Primary Care Unavailable MULUGETA ALMANZA Attending Unavailable MILLAN, CHRISTOPHER D Primary Care Unavailable MILLAN, CHRISTOPHER D Attending Unavailable MILLAN, CHRISTOPHER D Referring Unavailable MILLAN, CHRISTOPHER D Primary Care Unavailable ROGERS BRADLEY Attending Unavailable MILLAN, CHRISTOPHER D Primary Care Unavailable MILLAN, CHRISTOPHER D Attending Unavailable MILLAN, CHRISTOPHER D Primary Care Unavailable MILLAN, CHRISTOPHER D Attending Unavailable MILLAN, CHRISTOPHER D Primary Care Unavailable MILLAN, CHRISTOPHER D Attending Unavailable MILLAN, CHRISTOPHER D Primary Care Unavailable MILLAN, CHRISTOPHER D Attending Unavailable MILLAN, CHRISTOPHER D Referring Unavailable MILLAN, CHRISTOPHER D Primary Care Unavailable MILLAN, CHRISTOPHER D Primary Care Unavailable MILLAN, CHRISTOPHER D Primary Care Unavailable MILLAN, PAULER D Primary Care Unavailable MILLAN, DANGOPHER D Primary Care Unavailable MILAN REID Referring Unavailable MILLAN, DANGOPHER D Primary Care Unavailable MILLAN, PAULER D Referring Unavailable MILLAN, DANGOPHER D Primary Care Unavailable MILLAN, DANGOPHER D Primary Care Unavailable ASHLEY WILSON Attending Unavailable AKANKSHA MILLAN Primary Care Unavailable LORENZA CARVER Attending Unavailable LORENZA CARVER Referring Unavailable AKANKSHA MILLAN D Primary Care Unavailable Allergies Allergy Classification Reported Allergen(s) Allergy Type Date of Onset Reaction(s) Facility Acetaminophen / HYDROcodone (3 sources) Acetaminophen / HYDROcodone; Translations: [Vicodin TABS] Drug Allergy Hallucinations [facility] [employer] Work Phone: Amoxicillin / Clavulanate (3 sources) Amoxicillin / Clavulanate; Translations: [Augmentin] Drug Allergy Rash [facility] Work Phone: NSAIDs (3 sources) Diclofenac; Translations: [diclofenac] Drug Allergy [facility] Work Phone: Opioid Agonists (3 sources) traMADol; Translations: [tramadol] Drug Allergy [facility] Work Phone: Penicillins (antibiotic) (3 sources) Amoxicillin; Translations: [Amoxil] [facility] Work Phone: (20 sources) Acetaminophen / HYDROcodone; Translations: [Vicodin TABS] Drug Allergy 3 Hallucinations [facility] Work Phone: (12 sources) Amoxicillin; Translations: [Amoxil] Drug Allergy Rash [facility] Work Phone: (12 sources) Amoxicillin / Clavulanate; Translations: [Augmentin] Drug Allergy Rash [facility] Work Phone: (20 sources) Diclofenac; Translations: [diclofenac] Drug Allergy 3 Other [facility] Work Phone: (20 sources) traMADol; Translations: [tramadol] Drug Allergy 3 Other [facility] Work Phone: (11 sources) Amoxicillin; Translations: [AMOXICILLIN] Drug Allergy 3 [facility] (11 sources) Amoxicillin / Clavulanate; Translations: [AMOXICILLIN-POT CLAVULANATE] Drug Allergy 3 [facility] Work Phone: (3 sources) Acetaminophen / HYDROcodone; Translations: [HYDROCODONE-ACET AMINOPHEN] Drug Allergy 3 [facility] 3 Repository Medications Current Medications Medication Drug Class(es) Dates Sig (Normalized) Sig (Original) aspirin 81 mg delayed release oral tablet (20 sources) Platelet Aggregation Inhibitor, Nonsteroidal Anti-inflammatory Drug take 1 tablet by mouth once daily aspirin 81 mg EC tablet Take 1 tablet (81 mg) by mouth once daily. Active Aspirin 81 MG TA BS TAKE 1 TABLET DAILY. Quantity: 0 Refills: 0 Ordered: 26-Aug-2022 DO Active Aspirin 81 MG TA BS Quantity: 0 Refills: 0 Ordered: 29-Nov-2019 DO Active azithromycin 250 mg oral tablet (1 source) Macrolide Antimicrobial Start: 09-27-2023 End: 10-02-2023 azithromycin (Zithromax) 250 mg tablet Indications: Acute cough Take 2 tablets (500 mg) by mouth once daily for 1 day, THEN 1 tablet (250 mg) once daily for 4 days. Take 2 tabs (500 mg) by mouth today, than 1 daily for 4 days.. 6 tablet 0 09/27/2023 10/02/2023 Active bifidobacterium animalis [id number] unt / lactobacillus acidophilus [id number] unt oral capsule (20 sources) Start: 12-02-2020 L. acidophilus/Bifid . animalis 32 billion cell capsule Take by mouth. 12/02/2020 Active Ca-D3-mag oj-nzpt-mzj-nicole-bor 600 mg calcium- 20 mcg-50 mg tablet (8 sources) Start: 12-05-2019 take 1 tablet by mouth at bedtime Ca-D3-mag dy-txdg-dys-nicole- bor 600 mg calcium- 20 mcg-50 mg tablet Take 1 tablet by mouth in the morning and at bedtime. 12/05/2019 Active Start: 12-05-2019 take 1 tablet by joann th at bedtime Ca-D3-mag ny-zwtr-ymp-nicole-bor 600 mg calcium- 20 mcg-50 mg tablet Take 1 tablet by mouth in the morning and at bedtime. 0 12/05/2019 Active dicyclomine hydrochloride 10 mg oral capsule (20 sources) Anticholinergic Start: 12-20-2023 End: 03-19-2024 take 1 capsule by mouth four times daily as needed for diarrhea dicyclomine (Bentyl) 10 mg capsule Indications: Irritable bowel syndrome, unspecified type Take 1 capsule (10 mg) by mouth 4 times a day as needed (diarrhea). 90 capsule 12/20/2023 03/19/2024 Active folic acid 1 mg oral tablet (20 sources) End: 12-20-2023 take 1 tablet by mouth twice daily folic acid (Folvite) 1 mg tablet Take 1 tablet (1 mg) by mouth 2 times a day. 0 12/20/2023 Discontinued (Med List Cleanup) hydroxychloroquine sulfate 200 mg oral tablet (20 sources) Antimalarial, Antirheumatic Agent take 1 tablet by mouth twice daily hydroxychloroquine (Plaquenil) 200 mg tablet Take 1 tablet (200 mg) by mouth 2 times a day. Active take 1 tablet by mouth once henny y Plaquenil 200 MG Oral Tablet TAKE 1 TABLET DAILY. Refills: 0 Active metoprolol tartrate 25 mg oral tablet (19 sources) beta-Adrenergic Tommy Start: 11-12-2023 take 1 tablet by mouth twice daily metoprolol tartrate (Lopressor) 25 mg tablet Indications: Pulmonary hypertension (Multi) Take 1 tablet (25 mg) by mouth 2 times a day. 180 tablet 3 11/12/2023 Active Start: 03-02-2021 take 1 tablet by joann th twice daily metoprolol tartrate (Lopressor) 25 mg tablet Take 1 tablet (25 mg) by mouth 2 times a day. 0 03/02/2021 Active multivitamin tablet (8 sources) Start: 12-05-2019 take 1 tablet by mouth once daily multivitamin tablet Take 1 tablet by mouth once daily. 12/05/2019 Active Start: 12-05-2019 take 1 tablet by joann th once daily multivitamin tablet Take 1 tablet by mouth once daily. 0 12/05/2019 Active nitrofurantoin, macrocrystals 25 mg / nitrofurantoin, monohydrate 75 mg oral capsule (2 sources) Nitrofuran Antibacterial Start: 12-12-2023 End: 12-20-2023 take 1 capsule by mouth twice daily nitrofurantoin, macrocrystal-monohydrate, (Macrobid) 100 mg capsule Indications: Acute cystitis with hematuria Take 1 capsule (100 mg) by mouth 2 times a day for 5 days. 10 capsule 0 12/12/2023 12/20/2023 Discontinued (Therapy completed) predniSONE 20 mg oral tablet (20 sources) Start: 09-27-2023 End: 10-02-2023 take 2 tablets by mouth once daily predniSONE (Deltasone) 20 mg tablet Indications: Acute cough Take 2 tablets (40 mg) by mouth once daily for 5 days. 10 tablet 0 09/27/2023 10/02/2023 Active Start: 01-15-2021 take 1 tablet by joann th every twenty-four hours as needed predniSONE (Deltasone) 10 mg tablet Take 1 tablet (10 mg) by mouth once daily as needed. 01/15/2021 Active psyllium 400 mg oral capsule (8 sources) take 5 capsules by m outh twice daily psyllium (Metamucil) 0.4 gram capsule Take 5 capsules by mouth 2 times a day. Drink with 8 oz water (=1 tsp powder in 8 oz liquid) Active take 5 capsules by mouth once da kleber psyllium (Metamucil) 0.4 gram capsule Take 5 capsules by mouth once daily. 0 Active vitamin b6 100 mg oral tablet (20 sources) Start: 12-05-2019 take 1 tablet by mouth once daily pyridoxine (Vitamin B-6) 100 mg tablet Take 1 tablet (100 mg) by mouth once daily. 12/05/2019 Active Start: 12-05-2019 Vitamin B-6 10 0 MG Oral Tablet Quantity: 0 Refills: 0 Ordered: 05-Dec-2019 DO Start : 05-Dec-2019 Active vitamin e 180 mg oral tablet (20 sources) Start: 12-05-2019 take 2 tablets by mouth once daily vitamin E acid succinate (vitamin E succinate) 268 mg (400 unit) tablet Take 2 tablets by mouth 1 (one) time each day. 12/05/2019 Active Start: 12-05-2019 Vitamin E 400 UNIT Oral Tablet Quantity: 0 Refills: 0 Ordered: 05-Dec-2019 DO Start : 05-Dec-2019 Active Start: 12-05-2019 Vitamin E 400 UNIT Oral Tablet Refills: 0 Start : 05-Dec-2019 Active Completed/Discontinued Medications Medication Drug Class(es) Dates [...] Ordered: 05-Dec-2019 DO Start : 05-Dec-2019 Active methotrexate 2.5 mg oral tablet (20 sources) Folate Analog Metabolic Inhibitor End: 12-12-2023 take 6 tablets by mouth every week methotrexate (Trexall) 2.5 mg tablet Take 6 tablets (15 mg total) by mouth per week. 0 12/12/2023 Discontinued (Med List Cleanup) Multi-Vitamins Oral Tablet (3 sources) Start: 12-05-2019 Multi-Vitamins Oral Tablet Refills: 0 Start : 05-Dec-2019 Active Multi-Vitamins TABS (12 sources) Start: 12-05-2019 Multi-Vitamins TABS TAKE 1 TABLET DAILY. Quantity: 0 Refills: 0 Ordered: 05-Dec-2019 DO Start : 05-Dec-2019 Active Start: 12-05-2019 Multi-Vitamins TABS Quantity: 0 Refills: 0 Ordered: 05-Dec-2019 DO Start : 05-Dec-2019 Active Problems Active Problems Problem Classification Problem Date Documented Da te Episodic/Chronic Cardiac dysrhythmias (20 sources) Irregular heart beat; Translations: [Cardiac dysrhythmia, unspecified] Onset: 10-30-2022 08-25-2023 Chronic Deficiency and other anemia (4 sources) Anemia, unspecified; Translations: [Anemia, unspecified] Onset: 03-26-2024 Episodic Disorders of lipid metabolism (20 sources) Mixed hyperlipidemia; Translations: [Mixed hyperlipidemia] Onset: 10-30-2022 10-30-2022 Chronic Fluid and electrolyte disorders (4 sources) Hypo-osmolality and hyponatremia; Translations: [Other fluid overload] Onset: 03-28-2024 Episodic Malaise and fatigue (5 sources) Fatigue; Translations: [Other fatigue] Onset: 12-20-2023 12-20-2023 Episodic Osteoarthritis (20 sources) Osteoarthritis; Translations: [Osteoarthrosis, unspecified whether generalized or localized, site unspecified] Onset: 10-30-2022 10-30-2022 Chronic Other connective tissue disease (4 sources) Myalgia, unspecified site; Translations: [Myalgia, unspecified site] Onset: 03-26-2024 Episodic Other gastrointestinal disorders (20 sources) Irritable bowel syndrome; Translations: [Irritable bowel syndrome] Onset: 10-30-2022 10-30-2022 Chronic Other gastrointestinal disorders (2 sources) Irritable bowel syndrome without diarrhea; Translations: [Irritable bowel syndrome without diarrhea] Onset: 10-30-2022 Chronic Other infections; including parasitic (4 sources) Lyme disease, unspecified; Translations: [Lyme disease, unspecified] Onset: 04-10-2024 Episodic Other lower respiratory disease (1 source) Cough; Translations: [Acute cough] 09-27-2023 Episodic Other screening for suspected conditions (not mental disorders or infectious disease) (20 sources) Increased glucose level; Translations: [Other abnormal glucose] Onset: 10-30-2022 Episodic Pulmonary heart disease (20 sources) Pulmonary hypertension; Translations: [Other chronic pulmonary heart diseases] Onset: 10-30-2022 10-30-2022 Chronic Residual codes; unclassified (20 sources) Past history of procedure; Translations: [Other specified personal history presenting hazards to health] Episodic Comment on above: 01/03/2019; Residual codes; unclassified (12 sources) Menopause present; Translations: [Symptomatic menopausal or female climacteric states] Episodic Rheumatoid arthritis and related disease (20 sources) Rheumatoid arthritis; Translations: [Rheumatoid arthritis] Onset: 10-30-2022 10-30-2022 Chronic Spondylosis; intervertebral disc disorders; other back problems (2 sources) Radiculopathy, cervical region; Translations: [Radiculopathy, cervical region] Onset: 03-28-2024 Episodic Unclassified (1 source) Cough, unspecified; Translations: [Cough, unspecified] Onset: 08-18-2021 Unclassified (1 source) Acute cough; Translations: [Acute cough] Onset: 09-27-2023 Viral infection (4 sources) Viral infection, unspecified; Translations: [Viral infection, unspecified] Onset: 03-16-2024 Episodic Viral infection (1 source) COVID-19; Translations: [COVID-19] Onset: 08-18-2021 Past or Other Problems Problem Classification Problem Date Documented Da te Episodic/Chronic Genitourinary symptoms and ill-defined conditions (20 sources) Blood in urine; Translations: [Hematuria, unspecified] Onset: 10-30-2022 10-30-2022 Episodic Nutritional deficiencies (20 sources) Cobalamin deficiency; Translations: [Other B-complex deficiencies] Onset: 10-30-2022 10-30-2022 Episodic Other eye disorders (20 sources) Tear film insufficiency; Translations: [Tear film insufficiency, unspecified] Onset: 10-30-2022 10-30-2022 Episodic Syncope (7 sources) Syncope and collapse; Translations: [Syncope and collapse] Onset: 08-25-2023 08-25-2023 Episodic Unclassified (3 sources) Patient encounter status; Translations: [Breast cancer screening by mammogram] Unclassified (1 source) Cough, unspecified; Translations: [Cough, unspecified] Onset: 08-18-2021 Unclassified (8 sources) Onset: 08-25-2023 Resolved: 12-20-2023 08-25-2023 Unclassified (1 source) Acute cough; Translations: [Acute cough] Onset: 09-27-2023 Urinary tract infections (20 sources) Acute lower urinary tract infection; Translations: [Urinary tract infection, site not specified] Onset: 10-30-2022 Resolved: 12-20-2023 10-30-2022 Episodic Results Test Name Value Interpretation Reference Range Facility C reactive proteinon 024 CRP [Mass/Vol] mg/L Normal <1.00 [facility] Comment on above: Performed By: #### 5 0957-0 #### SHAHID NEVAREZ ([id number]) [facility] ([facility]) [address] [place] [address] 17858 CBC W Auto Differential pane l (Bld)on 05-01-2024 Basophils (Bld) [#/Vol] 0.03 x10*3/uL Normal 0.00-0.10 [facility] Comment on above: Performed By: #### 5 7021-8 #### SHAHID NEVAREZ ([id number]) [facility] ([facility]) [address] [place] [address] 48219 Basophils/100 WBC (Bld) 0.7 % Normal 0.0-2.0 [facility] Comment on above: Performed By: #### 5 7021-8 #### SHAHID NEVAREZ ([id number]) [facility] ([facility]) [address] [place] [address] 53215 Eosinophils (Bld) [#/Vol] 0.12 x10*3/uL Normal 0.00-0.40 [facility] Comment on above: Result Comment: Devon ected result: Previously reported as 0.11 x10*3/uL (reference range: 0.00-0.40 x10*3/uL) on 05/01/2024 at 1530 EDT. Performed By: #### 5 7021-8 #### SHAHID NEVAREZ ([id number]) [facility] ([facility]) [address] [place] [address] 54709 Eosinophils/100 WBC (Bld) 2.5 % Normal 0.0-6.0 [facility] Comment on above: Performed By: #### 5 7021-8 #### SHAHID NEVAREZ ([id number]) [facility] ([facility]) [address] [place] [address] 92374 Erythrocyte distribution width (RBC) [Ratio] 14.2 % Normal 11.5-14.5 [facility] Comment on above: Performed By: #### 5 7021-8 #### SHAHID NEVAREZ ([id number]) [facility] ([facility]) [address] [place] [address] 03731 Hematocrit (Bld) [Volume fraction] 35.6 % Low 36.0-46.0 [facility] Comment on above: Result Comment: Devon ected result: Previously reported as 32.4 % (reference range: 36.0-46.0 %) on 05/01/2024 at 1530 EDT. Performed By: #### 5 7021-8 #### SHAHID NEVAREZ ([id number]) [facility] ([facility]) [address] [place] [address] 01117 Hemoglobin (Bld) [Mass/Vol] 11.7 g/dL Low 12.0-16.0 [facility] Comment on above: Result Comment: Devon ected result: Previously reported as 10.7 g/dL (reference range: 12.0-16.0 g/dL) on 05/01/2024 at 1530 EDT. Performed By: #### 5 7021-8 #### SHAHID NEVAREZ ([id number]) [facility] ([facility]) [address] [place] [address] 33554 Immature granulocytes (Bld) [#/Vol] 0.00 x10*3/uL Normal 0.00-0.50 [facility] Comment on above: Performed By: #### 5 7021-8 #### SHAHID NEVAREZ ([id number]) [facility] ([facility]) [address] [place] [address] 83867 Immature granulocytes/100 WBC (Bld) 0.0 % Normal 0.0-0.9 [facility] Comment on above: Result Comment: Leesa ture Granulocyte Count (IG) includes promyelocytes, myelocytes and metamyelocytes but does not include bands. Percent differential counts (%) should be interpreted in the context of the absolute cell counts (cells/UL). Performed By: #### 5 7021-8 #### SHAHID NEVAREZ ([id number]) [facility] ([facility]) [address] [place] [address] 51712 Lymphocytes (Bld) [#/Vol] 1.47 x10*3/uL Normal 0.80-3.00 [facility] Comment on above: Result Comment: Devon ected result: Previously reported as 1.34 x10*3/uL (reference range: 0.80-3.00 x10*3/uL) on 05/01/2024 at 1530 EDT. Performed By: #### 5 7021-8 #### SHAHID NEVAREZ ([id number]) [facility] ([facility]) [address] [place] [address] 78945 Lymphocytes/100 WBC (Bld) 30.7 % Normal 13.0-44.0 [facility] Comment on above: Performed By: #### 5 7021-8 #### SHAHID NEVAREZ ([id number]) [facility] ([facility]) [address] [place] [address] 08682 MCH (RBC) [Entitic mass] 31.5 pg Normal 26.0-34.0 [facility] Comment on above: Performed By: #### 5 7021-8 #### SHAHID NEVAREZ ([id number]) [facility] ([facility]) [address] [place] [address] 67488 MCHC (RBC) [Mass/Vol] 33.0 g/dL Normal 32.0-36.0 [facility] Comment on above: Performed By: #### 5 7021-8 #### SHAHID NEVAREZ ([id number]) [facility] ([facility]) [address] [place] [address] 77074 MCV (RBC) [Entitic vol] 95 fL Normal 80-100 [facility] Comment on above: Performed By: #### 5 7021-8 #### SHAHID NEVAREZ ([id number]) [facility] ([facility]) [address] [place] [address] 84584 Monocytes (Bld) [#/Vol] 0.47 x10*3/uL Normal 0.05-0.80 [facility] Comment on above: Result Comment: Devon ected result: Previously reported as 0.43 x10*3/uL (reference range: 0.05-0.80 x10*3/uL) on 05/01/2024 at 1530 EDT. Performed By: #### 5 7021-8 #### SHAHID NEVAREZ ([id number]) [facility] ([facility]) [address] [place] [address] 17828 Monocytes/100 WBC (Bld) 9.8 % Normal 2.0-10.0 [facility] Comment on above: Performed By: #### 5 7021-8 #### SHAHID NEVAREZ ([id number]) [facility] ([facility]) [address] [place] [address] 51739 Neutrophils (Bld) [#/Vol] 2.70 x10*3/uL Normal 1.60-5.50 [facility] Comment on above: Result Comment: Perc ent differential counts (%) should be interpreted in the context of the absolute cell counts (cells/uL). Corrected result: Previously reported as 2.46 x10*3/uL (reference range: 1.60-5.50 x10*3/uL) on 05/01/2024 at 1530 EDT. Performed By: #### 5 7021-8 #### SHAHID NEVAREZ ([id number]) [facility] ([facility]) [address] [place] [address] 15785 Neutrophils/100 WBC (Bld) 56.3 % Normal 40.0-80.0 [facility] Comment on above: Performed By: #### 5 7021-8 #### SHAHID NEVAREZ ([id number]) [facility] ([facility]) [address] [place] [address] 60837 Nucleated RBC/100 WBC (Bld) [Ratio] 0.0 /100 WBCs Normal 0.0-0.0 [facility] Comment on above: Performed By: #### 5 7021-8 #### SHAHID NEVAREZ ([id number]) [facility] ([facility]) [address] [place] [address] 01393 Platelets (Bld) [#/Vol] 172 x10*3/uL Normal 150-450 [facility] Comment on above: Result Comment: Devon ected result: Previously reported as 156 x10*3/uL (reference range: 150-450 x10*3/uL) on 05/01/2024 at 1530 EDT. Performed By: #### 5 7021-8 #### SHAHID NEVAREZ ([id number]) [facility] ([facility]) [address] [place] [address] RBC (Bld) [#/Vol] 3.74 x10*6/uL Low 4.00-5.20 [facility] Comment on above: Result Comment: Devon ected result: Previously reported as 3.40 x10*6/uL (reference range: 4.00-5.20 x10*6/uL) on 05/01/2024 at 1530 EDT. Performed By: #### 5 7021-8 #### SHAHID NEVAREZ ([id number]) [facility] ([facility]) [address] [place] [address] WBC (Bld) [#/Vol] 4.8 x10*3/uL Normal 4.4-11.3 [facility] Ambulatory Comment on above: Result Comment: Devon ected result: Previously reported as 4.4 x10*3/uL (reference range: 4.4-11.3 x10*3/uL) on 05/01/2024 at 1530 EDT. Performed By: #### 5 7021-8 #### SHAHID NEVAREZ ([id number]) [facility] ([facility]) [address] [place] [address] Comprehensive metabolic 2000 panelon 05-01-2024 Albumin BCP dye [Mass/Vol] 4.1 g/dL Normal 3.4-5.0 [facility] Comment on above: Performed By: #### 5 0957-0 #### SHAHID NEVAREZ ([id number]) [facility] ([facility]) [address] [place] [address] ALP [Catalytic activity/Vol] 43 U/L Normal 33-136 [facility] Comment on above: Performed By: #### 5 0957-0 #### SHAHID NEVAREZ ([id number]) [facility] ([facility]) [address] [place] [address] ALT With P-5'-P [Catalytic activity/Vol] 32 U/L Normal 7-45 [facility] Comment on above: Result Comment: Mimi ents treated with Sulfasalazine may generate falsely decreased results for ALT. Performed By: #### 5 0957-0 #### SHAHID NEVAREZ ([id number]) [facility] ([facility]) [address] [place] [address] Anion gap [Moles/Vol] 8 mmol/L Low 10-20 [facility] Comment on above: Performed By: #### 5 0957-0 #### SHAHID NEVAREZ ([id number]) [facility] ([facility]) [address] [place] [address] AST With P-5'-P [Catalytic activity/Vol] 39 U/L Normal 9-39 [facility] Comment on above: Performed By: #### 5 57-0 #### SHAHID NEVAREZ ([id number]) [facility] ([facility]) [address] [place] [address] 86714 Bilirubin [Mass/Vol] 0.5 mg/dL Normal 0.0-1.[address] [facility] Comment on above: Performed By: #### 5 57-0 #### SHAHID NEVAREZ ([id number]) [facility] ([facility]) [address] [place] [address] 95577 Calcium [Mass/Vol] 9.7 mg/dL Normal 8.6-10.3 [facility] Comment on above: Performed By: #### 5 0957-0 #### SHAHID NEVAREZ ([id number]) [facility] ([facility]) [address] [place] [address] Chloride [Moles/Vol] 102 mmol/L Normal 98-[address] [facility] Comment on above: Performed By: #### 5 0957-0 #### SHAHID NEVAREZ ([id number]) [facility] ([facility]) [address] [place] [address] CO2 [Moles/Vol] 32 mmol/L Normal 21-32 [facility] Comment on above: Performed By: #### 5 0957-0 #### SHAHID NEVAREZ ([id number]) [facility] ([facility]) [address] [place] [address] Creatinine [Mass/Vol] 0.89 mg/dL Normal 0.50-1.05 [facility] Comment on above: Performed By: #### 5 0957-0 #### SHAHID NEVAREZ ([id number]) [facility] ([facility]) [address] [place] [address] 39188 Glomerular filtration rate/1.73 sq M.predicted 66 mL/min/1.73m*2 Normal >60 [facility] Comment on above: Result Comment: Calc ulations of estimated GFR are performed using the 2020 CKD-EPI Study Refit equation without the race variable for the IDMS-Traceable creatinine methods. https://jasn.asnjournals.org/content/early//ASN.2020 968792 Performed By: #### 5 0957-0 #### SHAHID NEVAREZ ([id number]) [facility] ([facility]) [address] [place] [address] 46088 Glucose [Mass/Vol] 87 mg/dL Normal 74-99 [facility] Comment on above: Performed By: #### 5 0957-0 #### SHAHID NEVAREZ ([id number]) [facility] ([facility]) [address] [place] [address] 50827 Potassium [Moles/Vol] 4.3 mmol/L Normal 3.5-5.3 [facility] Comment on above: Performed By: #### 5 0957-0 #### SHAHID NEVAREZ ([id number]) [facility] ([facility]) [address] [place] [address] 11837 Protein [Mass/Vol] 6.7 g/dL Normal 6.4-8.2 [facility] Comment on above: Performed By: #### 5 0957-0 #### SHAHID NEVAREZ ([id number]) [facility] ([facility]) [address] [place] [address] 82176 Sodium [Moles/Vol] 138 mmol/L Normal 136-145 [facility] Comment on above: Performed By: #### 5 0957-0 #### SHAHID NEVAREZ ([id number]) [facility] ([facility]) [address] [place] [address] 55509 Urea nitrogen [Mass/Vol] 28 mg/dL High 6-23 [facility] Comment on above: Performed By: #### 5 0957-0 #### SHAHID NEVAREZ ([id number]) [facility] ([facility]) [facility] [place] [address] Basic metabolic 2000 panelon 03-28-2024 Anion gap [Moles/Vol] 9 mmol/L Low 10-20 [facility] Comment on above: Performed By: #### 2 4321-2 ####SHAHID NEVAREZ ([id number])[facility] ([facility])[address] [place] [address] 01619 Calcium [Mass/Vol] 8.9 mg/dL Normal 8.6-10.3 [facility] Comment on above: Performed By: #### 2 4321-2 ####SHAHID NEVAREZ ([id number])[facility] ([facility])[address] [place] [address] 10870 Chloride [Moles/Vol] 98 mmol/L Normal 98-107 [facility] Comment on above: Performed By: #### 2 4321-2 ####SHAHID NEVAREZ ([id number])[facility] ([facility])[address] [place] [address] 11828 CO2 [Moles/Vol] 28 mmol/L Normal 21-32 [facility] Comment on above: Performed By: #### 2 4321-2 ####SHAHID NEVAREZ ([id number])[facility] ([facility])[address] [place] [address] 46411 Creatinine [Mass/Vol] 0.79 mg/dL Normal 0.50-1.05 [facility] Comment on above: Performed By: #### 2 4321-2 ####SHAHID NEVAREZ ([id number])[facility] ([facility])[address] [place] [address] 12746 Glomerular filtration rate/1.73 sq M.predicted 77 mL/min/1.73m*2 Normal >60 [facility] Comment on above: Result Comment: Calc ulations of estimated GFR are performed using the 2020 CKD-EPI Study Refit equation without the race variable for the IDMS-Traceable creatinine methods. https://jasn.asnjournals.org/content//ASN 643238 Performed By: #### 2 4321-2 ####SHAHID NEVAREZ ([id number])[facility] ([facility])[address] [place] [address] 97564 Glucose [Mass/Vol] 95 mg/dL Normal 74-99 [facility] Comment on above: Performed By: #### 2 4321-2 ####SHAHID NEVAREZ ([id number])[facility] ([facility])[address] [place] [address] 92590 Potassium [Moles/Vol] 4.3 mmol/L Normal 3.5-5.3 [facility] Comment on above: Performed By: #### 2 4321-2 ####SHAHID NEVAREZ ([id number])[facility] ([facility])[address] [place] [address] 89375 Sodium [Moles/Vol] 131 mmol/L Low 136-145 [facility] Comment on above: Performed By: #### 2 4321-2 ####SHAHID NEVAREZ ([id number])[facility] ([facility])[address] [place] [address] 95484 Urea nitrogen [Mass/Vol] 15 mg/dL Normal 6-23 [facility] Comment on above: Performed By: #### 2 4321-2 ####SHAHID NEVAREZ ([id number])[facility] ([facility])[address] [place] [address] 06872 CBC W Auto Differential pane l (Bld)on 03-28-2024 Basophils (Bld) [#/Vol] 0.02 x10*3/uL Normal 0.00-0.10 [facility] Comment on above: Performed By: #### 5 7021-8 ####SHAHID NEVAREZ ([id number])[facility] ([facility])[address] [place] [address] 30367 Basophils/100 WBC (Bld) 0.4 % Normal 0.0-2.0 [facility] Comment on above: Performed By: #### 5 7021-8 ####SHAHID NEVAREZ ([id number])[facility] ([facility])[address] [place] [address] 79255 Eosinophils (Bld) [#/Vol] 0.09 x10*3/uL Normal 0.00-0.40 [facility] Comment on above: Performed By: #### 5 7021-8 ####SHAHID NEVAREZ ([id number])[facility] ([facility])[address] [place] [address] 10482 Eosinophils/100 WBC (Bld) 1.7 % Normal 0.0-6.0 [facility] Comment on above: Performed By: #### 7021-8 ####SHAHID NEVAREZ ([id number])[facility] ([facility])[address] [place] [address] 08187 Erythrocyte distribution width (RBC) [Ratio] 14.5 % Normal 11.5-14.5 [facility] Comment on above: Performed By: #### 5 7021-8 ####SHAHID NEVAREZ ([id number])[facility] ([facility])[address] [place] [address] 61768 Hematocrit (Bld) [Volume fraction] 34.8 % Low 36.0-46.0 [facility] Comment on above: Performed By: #### 5 7021-8 ####SHAHID NEVAREZ ([id number])[facility] ([facility])[address] [place] [address] 54355 Hemoglobin (Bld) [Mass/Vol] 11.5 g/dL Low 12.0-16.0 [facility] Comment on above: Performed By: #### 7021-8 ####SHAHID NEVAREZ ([id number])[facility] ([facility])[address] [place] [address] 71632 Immature granulocytes (Bld) [#/Vol] 0.01 x10*3/uL Normal 0.00-0.50 [facility] Comment on above: Performed By: #### 5 7021-8 ####SHAHID NEVAREZ ([id number])[facility] ([facility])[address] [place] [address] 79238 Immature granulocytes/100 WBC (Bld) 0.2 % Normal 0.0-0.9 [facility] Comment on above: Result Comment: Leesa ture Granulocyte Count (IG) includes promyelocytes, myelocytes and metamyelocytes but does not include bands. Percent differential counts (%) should be interpreted in the context of the absolute cell counts (cells/UL). Performed By: #### 5 7021-8 ####SHAHID NEVAREZ ([id number])[facility] ([facility])[address] [place] [address] 33776 Lymphocytes (Bld) [#/Vol] 0.48 x10*3/uL Low 0.80-3.00 [facility] Comment on above: Performed By: #### 5 7021-8 ####SHAHID NEVAREZ ([id number])[facility] ([facility])[address] [place] [address] 64971 Lymphocytes/100 WBC (Bld) 9.2 % Normal 13.0-44.0 [facility] Comment on above: Performed By: #### 5 7021-8 ####SHAHID NEVAREZ ([id number])[facility] ([facility])[address] [place] [address] 92235 MCH (RBC) [Entitic mass] 30.7 pg Normal 26.0-34.0 [facility] Comment on above: Performed By: #### 5 7021-8 ####SHAHID NEVAREZ ([id number])[facility] ([facility])[address] [place] [address] 69250 MCHC (RBC) [Mass/Vol] 33.0 g/dL Normal 32.0-36.0 [facility] Comment on above: Performed By: #### 5 7021-8 ####SHAHID NEVAREZ ([id number])[facility] ([facility])[address] [place] [address] 19199 MCV (RBC) [Entitic vol] 93 fL Normal 80-100 [facility] Comment on above: Performed By: #### 5 7021-8 ####SHAHID NEVAREZ ([id number])[facility] ([facility])[address] [place] [address] 03548 Monocytes (Bld) [#/Vol] 0.23 x10*3/uL Normal 0.05-0.80 [facility] Comment on above: Performed By: #### 5 7021-8 ####SHAHID NEVAREZ ([id number])[facility] ([facility])[address] [place] [address] 06952 Monocytes/100 WBC (Bld) 4.4 % Normal 2.0-10.0 [facility] Comment on above: Performed By: #### 5 7021-8 ####SHAHID NEVAREZ ([id number])[facility] ([facility])[address] [place] [address] 19557 Neutrophils (Bld) [#/Vol] 4.39 x10*3/uL Normal 1.60-5.50 [facility] Comment on above: Result Comment: Perc ent differential counts (%) should be interpreted in the context of the absolute cell counts (cells/uL). Performed By: #### 5 7021-8 ####SHAHID NEVAREZ ([id number])[facility] ([facility])[address] [place] [address] 48281 Neutrophils/100 WBC (Bld) 84.1 % Normal 40.0-80.0 [facility] Comment on above: Performed By: #### 5 7021-8 ####SHAHID NEVAREZ ([id number])[facility] ([facility])[address] [place] [address] 68277 Nucleated RBC/100 WBC (Bld) [Ratio] 0.0 /100 WBCs Normal 0.0-0.0 [facility] Comment on above: Performed By: #### 5 7021-8 ####SHAHID NEVAREZ ([id number])[facility] ([facility])[address] [place] [address] 07823 Platelets (Bld) [#/Vol] 226 x10*3/uL Normal 150-450 [facility] Comment on above: Result Comment: plat elet count from blue top citrate tube Performed By: #### 5 7021-8 ####SHAHID NEVAREZ ([id number])[facility] ([facility])[address] [place] [address] RBC (Bld) [#/Vol] 3.74 x10*6/uL Low 4.00-5.20 [facility] Comment on above: Performed By: #### 5 7021-8 ####SHAHID NEVAREZ ([id number])[facility] ([facility])[address] [place] [address] WBC (Bld) [#/Vol] 5.2 x10*3/uL Normal 4.4-11.[address] [facility] Comment on above: Performed By: #### 5 7021-8 ####SHAHID NEVAREZ ([id number])[facility] ([facility])[address] [place] [address] Coagulation surface inducedo n 03-28-2024 aPTT Coag (PPP) [Time] 29 s Normal 27-38 [facility] Comment on above: Order Comment: The A PTT is no longer used for monitoring Unfractionated Heparin Therapy. For monitoring Heparin Therapy, use the Heparin Assay. Performed By: #### 1 4979-9 #### SHAHID NEVAREZ ([id number]) [facility] ([facility]) [address] [place] [address] Coagulation tissue factor in ducedon 03-28-2024 PT Coag (PPP) [Time] 11.6 s Normal 9.8-12.8 [facility] Comment on above: Performed By: #### 5 902-2 #### SHAHID NEVAREZ ([id number]) [facility] ([facility]) [address] [place] [address] ECG 12-LEADon 03-28-2024 ECG 12-LEAD Ventricular Rate 78 Atrial Rate 78 P-R Interval 154 QRS Duration 126 Q-T Interval 412 QTC Calculation(Bazett) 469 P Ruth 64 R Ruth 73 T Ruth 11 QRS Count 13 Q Onset 225 P Onset 148 P Offset 208 T Offset 431 QTC Fredericia 449 Diagnosis Sinus rhythm with Premature atrial complexes Right bundle branch block Septal infarct (cited on or before 26-AUG-2022) Abnormal ECG When compared with ECG of 26-AUG-2022 11:20, (unconfirmed) Premature atrial complexes are now Present Right bundle branch block is now Present Questionable change in initial forces of Septal leads See ED provider note for full interpretation and clinical correlation Confirmed by Karen Castorena ([id number]) on 04/05/2024 8:44:00 PM Normal [facility] Hepatic function 2000 panelo n 03-28-2024 Albumin BCP dye [Mass/Vol] 4.0 g/dL Normal 3.4-5.0 [facility] Comment on above: Performed By: #### 2 4325-3 ####SHAHID NEVAREZ ([id number])[facility] ([facility])[address] [place] [address] 25947 ALP [Catalytic activity/Vol] 77 U/L Normal 33-136 [facility] Comment on above: Performed By: #### 2 4325-3 ####SHAHID NEVAREZ ([id number])[facility] ([facility] [place] [address] ALT With P-5'-P [Catalytic activity/Vol] 31 U/L Normal 7-45 [facility] Comment on above: Result Comment: Mimi ents treated with Sulfasalazine may generate falsely decreased results for ALT. Performed By: #### 2 5-3 ####SHAHID NEVAREZ ([id number])[facility] ([facility] [place] [address] AST With P-5'-P [Catalytic activity/Vol] 33 U/L Normal 9-39 [facility] Comment on above: Performed By: #### 2 5-3 ####SHAHID NEVAREZ ([id number])[facility] ([facility])[address] [place] [address] 31487 Bilirubin [Mass/Vol] 0.6 mg/dL Normal 0.0-1.2 [facility] Comment on above: Performed By: #### 2 5-3 ####SHAHID NEVAREZ ([id number])[facility] ([facility])[address] [place] [address] 70759 Bilirubin.direct [Mass/Vol] 0.1 mg/dL Normal 0.0-0.3 [facility] Comment on above: Performed By: #### 2 4325-3 ####SHAHID NEVAREZ ([id number])[facility] ([facility])[address] [place] [address] 41331 Protein [Mass/Vol] 7.0 g/dL Normal 6.4-8.2 [facility] Comment on above: Performed By: #### 2 4325-3 ####SHAHID NEVAREZ ([id number])[facility] ([facility])[address] [place], [place] [address] Magnesiumon 03-28-2024 Magnesium [Mass/Vol] 2.02 mg/dL Normal 1.60-2.40 [facility] Comment on above: Performed By: #### 1 9123-9 #### SHAHID NEVAREZ ([id number]) [facility] ([facility]) [address] [place] [address] 24036 PT Coag (PPP) [Time]on 03-28 INR Coag (PPP) [Relative time] 1.0 Normal 0.9-1.1 [facility] Comment on above: Performed By: #### 5 902-2 #### SHAHID NEVAREZ ([id number]) [facility] ([facility]) [address] [place] [address] 29946 Phosphateon 03-28-2024 Phosphate [Mass/Vol] 3.4 mg/dL Normal 2.5-4.9 [facility] Comment on above: Result Comment: The performance characteristics of phosphorus testing in heparinized plasma have been validated by the individual laboratory site where testing is performed. Testing on heparinized plasma is not approved by the FDA; however, such approval is not necessary. Performed By: #### 2 777-1 #### SHAHID NEVAREZ ([id number]) [facility] ([facility]) [address] [place] [address] 86885 Triacylglycerol lipaseon Lipase [Catalytic activity/Vol] 48 U/L Normal [facility] Comment on above: Order Comment: Venip uncture immediately after or during the administration of Metamizole may lead to falsely low results. Testing should be performed immediately prior to Metamizole dosing. Performed By: #### 3 040-3 ####SHAHID NEVAREZ ([id number])[facility] ([facility])[address] [place] [address] Urinalysis complete W Reflex Culture panel (U)on 03-28-2024 Appearance (U) Clear Normal Clear [facility] Comment on above: Performed By: #### 5 8077-9 #### SHAHID NEVAREZ ([id number]) [facility] ([facility]) [address] [place] [address] Bilirubin (U) [Mass/Vol] Negative Normal NEGATIVE [facility] Comment on above: Performed By: #### 5 8077-9 #### SHAHID NEVAREZ ([id number]) [facility] ([facility]) [address] [place] [address] Color (U) Colorless Normal Light-Yellow, Yellow, Dark-Yellow [facility] Comment on above: Performed By: #### 5 8077-9 #### SHAHID NEVAREZ ([id number]) [facility] ([facility]) [address] [place] [address] Glucose Auto test strip (U) [Mass/Vol] Normal Normal Normal [facility] Comment on above: Performed By: #### 5 8077-9 #### SHAHID NEVAREZ ([id number]) [facility] ([facility]) [address] [place] [address] 44525 Ketones (U) [Mass/Vol] Negative Normal NEGATIVE [facility] Comment on above: Performed By: #### 5 8077-9 #### SHAHID NEVAREZ ([id number]) [facility] ([facility]) [address] [place] [address] 20641 Leukocyte esterase Auto test strip Ql (U) Negative Normal NEGATIVE [facility] Comment on above: Performed By: #### 5 8077-9 #### SHAHID NEVAREZ ([id number]) [facility] ([facility]) [address] [place] [address] 06452 Nitrite Auto test strip Ql (U) Negative Normal NEGATIVE [facility] Comment on above: Performed By: #### 5 8077-9 #### SHAHID NEVAREZ ([id number]) [facility] ([facility]) [address] [place] [address] 41970 pH (U) 7.0 [pH] Normal 5.0, 5.5, 6.0, 6.5, 7.0, 7.5, 8.0 [facility] Comment on above: Performed By: #### 5 8077-9 #### SHAHID NEVAREZ ([id number]) [facility] ([facility]) [address] [place] [address] 63221 Protein (U) [Mass/Vol] Negative Normal NEGAT NEVIN, 10 (TRACE), 20 (TRACE) [facility] Comment on above: Performed By: #### 5 8077-9 #### SHAHID NEVAREZ ([id number]) [facility] ([facility]) [address] [place] [address] 22196 RBC (U) [#/Vol] Negative Normal NEGATIVE [facility] Comment on above: Performed By: #### 5 8077-9 #### SHAHID NEVAREZ ([id number]) [facility] ([facility]) [address] [place] [address] 11215 Specific gravity (U) [Rel density] 1.008 Normal 1.005-1.035 [facility] Comment on above: Performed By: #### 5 8077-9 #### SHAHID NEVAREZ ([id number]) [facility] ([facility]) [address] [place] [address] 84228 Urobilinogen (U) [Mass/Vol] Normal Normal Normal [facility] Comment on above: Performed By: #### 5 8077-9 #### SHAHID NEVAREZ ([id number]) [facility] ([facility]) [address] [place] [address] 84615 XR CERVICAL SPINE 2-3 VIEWSo n 03-28-2024 XR CERVICAL SPINE 2-3 VIEWS Interpreted By: Susy Nance, STUDY: XR CERVICAL SPINE 2-3 VIEWS; 03/28/2024 11:27 am 3 views. INDICATION: Signs/Symptoms:NECK PAIN/?DJD. COMPARISON: None. ACCESSION NUMBER(S): [id number] ORDERING CLINICIAN: LORENZA CARVER FINDINGS: There is no fracture or prevertebral soft tissue swelling. There is 2 mm retrolisthesis of C5 with respect to C4 and C6. There is mild anterior osteophytic spurring at C2-3 through C4-5. There is disc space narrowing with mild anterior osteophytic spurring at C5-6 and C6-7. IMPRESSION: 1. Degenerative change with no acute bony abnormality. 2. 2 mm retrolisthesis of C5 with respect to C4 and C6. MACRO: None Signed by: Susy Nance 03/28/2024 11:48 AM Dictation workstation: [id number] [facility] Borrelia burgdorferi.VlsE1+p epC10 Abon 03-27-2024 Borrelia burgdorferi.VlsE1+pepC1 0 Ab 5.80 IV High <=0.90 [facility] Comment on above: Result Comment: REFERENCE INTERVAL: B. burgdorferi VlsE1/pepC10 Abs, ROCÍO 0.90 IV or less..........Negative: VlsE1 and pepC10 antibodies to B. burgdorferi not detected. 0.91 - 1.09 IV...........Equivocal: Repeat testing in 10-14 days may be helpful. 1.10 IV or greater.......Positive: VlsE1 and pepC10 antibodies to B. burgdorferi detected. Performed By: [facility] [address] [place] [address] 51050 Spectrograph Operator: Archie Bernard MD, PhD CLIA Number: [id number] Performed By: #### 5 0957-0 #### KEY ROQUE ([id number]) [facility] ([facility]) [address] [place] [address] C reactive protein 024 CRP [Mass/Vol] 1.71 mg/dL High <1.00 [facility] Comment on above: Performed By: #### 1 988-5 #### SHAHID NEVAREZ ([id number]) [facility] ([facility]) [address] [place] [address] 43519 CBC W Auto Differential pane l (Bld)on 03-27-2024 Basophils (Bld) [#/Vol] 0.04 x10*3/uL Normal 0.00-0.10 [facility] Comment on above: Performed By: #### 5 7021-8 #### SHAHID NEVAREZ ([id number]) [facility] ([facility]) [address] [place] [address] 62542 Basophils/100 WBC (Bld) 0.6 % Normal 0.0-2.0 U [facility] Comment on above: Performed By: #### 5 7021-8 #### SHAHID NEVAREZ ([id number]) [facility] ([facility]) [address] [place] [address] Eosinophils (Bld) [#/Vol] 0.08 x10*3/uL Normal 0.00-0.40 [facility] Comment on above: Performed By: #### 5 7021-8 #### SHAHID NEVAREZ ([id number]) [facility] ([facility]) [address] [place] [id number] Eosinophils/100 WBC (Bld) 1.3 % Normal 0.0-6.0 [facility] Comment on above: Performed By: #### 5 7021-8 #### SHAHID NEVAREZ ([id number]) [facility] ([facility]) [address] [place], [place] [id number] Erythrocyte distribution width (RBC) [Ratio] 14.5 % Normal 11.5-14.5 [facility] Comment on above: Performed By: #### 5 7021-8 #### SHAHID NEVAREZ ([id number]) [facility] ([facility]) [address] [place] [address] Hematocrit (Bld) [Volume fraction] 35.5 % Low 36.0-46.0 [facility] Comment on above: Performed By: #### 5 7021-8 #### SHAHID NEVAREZ ([id number]) [facility] ([facility]) [address] [place] [address] 44007 Hemoglobin (Bld) [Mass/Vol] 11.6 g/dL Low 12.0-16.0 [facility] Comment on above: Performed By: #### 5 7021-8 #### SHAHID NEVAREZ ([id number]) [facility] ([facility]) [address] [place] [address] 12904 Immature granulocytes (Bld) [#/Vol] 0.02 x10*3/uL Normal 0.00-0.50 [facility] Comment on above: Performed By: #### 5 7021-8 #### SHAHID NEVAREZ ([id number]) [facility] ([facility]) [address] [place] [address] 96479 Immature granulocytes/100 WBC (Bld) 0.3 % Normal 0.0-0.9 [facility] Comment on above: Result Comment: Leesa ture Granulocyte Count (IG) includes promyelocytes, myelocytes and metamyelocytes but does not include bands. Percent differential counts (%) should be interpreted in the context of the absolute cell counts (cells/UL). Performed By: #### 5 7021-8 #### SHAHID NEVAREZ ([id number]) [facility] ([facility]) [address] [place] [address] 20755 Lymphocytes (Bld) [#/Vol] 0.79 x10*3/uL Low 0.80-3.00 [facility] Comment on above: Performed By: #### 5 7021-8 #### SHAHID NEVAREZ ([id number]) [facility] ([facility]) [address] [place] [address] 38480 Lymphocytes/100 WBC (Bld) 12.8 % Normal 13.0-44.0 [facility] Comment on above: Performed By: #### 5 7021-8 #### SHAHID NEVAREZ ([id number]) [facility] ([facility]) [address] [place] [address] 98058 MCH (RBC) [Entitic mass] 30.9 pg Normal 26.0-34.0 [facility] Comment on above: Performed By: #### 5 7021-8 #### SHAHID NEVAREZ ([id number]) [facility] ([facility]) [address] [place] [address] 50718 MCHC (RBC) [Mass/Vol] 32.7 g/dL Normal 32.0-36.0 [facility] Comment on above: Performed By: #### 5 7021-8 #### SHAHID NEVAREZ ([id number]) [facility] ([facility]) [address] [place] [address] 59909 MCV (RBC) [Entitic vol] 94 fL Normal 80-100 [facility] Comment on above: Performed By: #### 5 7021-8 #### SHAHID NEVAREZ ([id number]) [facility] ([facility]) [address] [place] [address] 98542 Monocytes (Bld) [#/Vol] 0.41 x10*3/uL Normal 0.05-0.80 [facility] Comment on above: Performed By: #### 5 7021-8 #### SHAHID NEVAREZ ([id number]) [facility] ([facility]) [address] [place] [address] 87214 Monocytes/100 WBC (Bld) 6.7 % Normal 2.0-10.0 [facility] Comment on above: Performed By: #### 5 7021-8 #### SHAHID NEVAREZ ([id number]) [facility] ([facility]) [address] [place] [address] 79764 Neutrophils (Bld) [#/Vol] 4.82 x10*3/uL Normal 1.60-5.50 [facility] Comment on above: Result Comment: Perc ent differential counts (%) should be interpreted in the context of the absolute cell counts (cells/uL). Performed By: #### 5 7021-8 #### SHAHID NEVAREZ ([id number]) [facility] ([facility]) [address] [place] [address] 92643 Neutrophils/100 WBC (Bld) 78.3 % Normal 40.0-80.0 [facility] Comment on above: Performed By: #### 5 7021-8 #### SHAHID NEVAREZ ([id number]) [facility] ([facility]) [address] [place] [address] 92915 Nucleated RBC/100 WBC (Bld) [Ratio] 0.0 /100 WBCs Normal 0.0-0.0 [facility] Comment on above: Performed By: #### 5 7021-8 #### SHAHID NEVAREZ ([id number]) [facility] ([facility]) [address] [place] [address] 00369 Platelets (Bld) [#/Vol] 104 x10*3/uL Low 150-450 [facility] Comment on above: Result Comment: vort exed, platelets showed clumping. Recommend blue top draw also next time. Performed By: #### 5 7021-8 #### SHAHID NEVAREZ ([id number]) [facility] ([facility]) [address] [place] [address] 96637 RBC (Bld) [#/Vol] 3.76 x10*6/uL Low 4.00-5.[address] [facility] Comment on above: Performed By: #### 5 7021-8 #### SHAHID NEVAREZ ([id number]) [facility] ([facility]) [address] [place] [address] 86318 WBC (Bld) [#/Vol] 6.2 x10*3/uL Normal 4.4-11.3 [facility] Comment on above: Performed By: #### 5 7021-8 #### SHAHID NEVAREZ ([id number]) [facility] ([facility]) [address] [place] [address] 49904 Comprehensive metabolic 2000 panelon 03-27-2024 Albumin BCP dye [Mass/Vol] 4.0 g/dL Normal 3.4-5.0 [facility] Comment on above: Performed By: #### 2 4323-8 #### SHAHID NEVAREZ ([id number]) [facility] ([facility]) [address] [place] [address] 52179 ALP [Catalytic activity/Vol] 78 U/L Normal 33-136 [facility] Comment on above: Performed By: #### 2 432-8 #### SHAHID NEVAREZ ([id number]) [facility] ([facility]) [address] [place] [address] ALT With P-5'-P [Catalytic activity/Vol] 33 U/L Normal 7-45 [facility] Comment on above: Result Comment: Mimi ents treated with Sulfasalazine may generate falsely decreased results for ALT. Performed By: #### 2 4323-8 #### SHAHID NEVAREZ ([id number]) [facility] ([facility]) [address] [place] [address] Anion gap [Moles/Vol] 10 mmol/L Normal [facility] Comment on above: Performed By: #### 2 4322-8 #### SHAHID ENVAREZ ([id number]) [facility] ([facility]) [address] [place] [address] AST With P-5'-P [Catalytic activity/Vol] 30 U/L Normal 9-39 [facility] Comment on above: Performed By: #### 2 4322-8 #### SHAHID NEVAREZ ([id number]) [facility] ([facility]) [address] [place] [address] Bilirubin [Mass/Vol] 0.7 mg/dL Normal 0.0-1.[address] [facility] Comment on above: Performed By: #### 2 4322-8 #### SHAHID NEVAREZ ([id number]) [facility] ([facility]) [address] [place] [address] Calcium [Mass/Vol] 9.2 mg/dL Normal 8.6-10.3 [facility] Comment on above: Performed By: #### 2 3-8 #### SHAHID NEVAREZ ([id number]) [facility] ([facility]) [address] [place] [address] Chloride [Moles/Vol] 92 mmol/L Low 98-[address] [facility] Comment on above: Performed By: #### 2 4323-8 #### SHAHID NEVAREZ ([id number]) [facility] ([facility]) [address] [place] [address] CO2 [Moles/Vol] 29 mmol/L Normal 21-32 [facility] Comment on above: Performed By: #### 2 4323-8 #### SHAHID NEVAREZ ([id number]) [facility] ([facility]) [address] [place] [address] 81006 Creatinine [Mass/Vol] 0.88 mg/dL Normal 0.50-1.05 [facility] Comment on above: Performed By: #### 2 4323-8 #### SHAHID NEVAREZ ([id number]) [facility] ([facility]) [address] [place] [address] 17818 Glomerular filtration rate/1.73 sq M.predicted 67 mL/min/1.73m*2 Normal >60 [facility] Comment on above: Result Comment: Calc ulations of estimated GFR are performed using the 2020 CKD-EPI Study Refit equation without the race variable for the IDMS-Traceable creatinine methods. https://jasn.asnjournals.org/content/early/ASN.2020 507074 Performed By: #### 2 432-8 #### SHAHID NEVAREZ ([id number]) [facility] ([facility]) [address] [place] [address] 66392 Glucose [Mass/Vol] 75 mg/dL Normal 74-99 [facility] Comment on above: Performed By: #### 2 432-8 #### SHAHID NEVAREZ ([id number]) [facility] ([facility]) [address] [place] [address] 13399 Potassium [Moles/Vol] 4.4 mmol/L Normal 3.5-5.3 [facility] Comment on above: Performed By: #### 2 4323-8 #### SHAHID NEVAREZ ([id number]) [facility] ([facility]) [address] [place] [address] 81933 Protein [Mass/Vol] 6.8 g/dL Normal 6.4-8.2 [facility] Comment on above: Performed By: #### 2 4323-8 #### SHAHID NEVAREZ ([id number]) [facility] ([facility]) [address] [place] [address] Sodium [Moles/Vol] 127 mmol/L Low 136-145 [facility] Comment on above: Result Comment: Conf irmed by repeat analysis Performed By: #### 2 4323-8 #### SHAHID NEVAREZ ([id number]) [facility] ([facility]) [address] [place] [address] Urea nitrogen [Mass/Vol] 16 mg/dL Normal 6-23 [facility] Comment on above: Performed By: #### 2 4323-8 #### SHAHID NEVAREZ ([id number]) [facility] ([facility]) [address] [place] [address] ESR Westergren method (Bld) [Velocity]on 03-27-2024 ESR (Bld) [Velocity] 53 mm/h High 0-[address] [facility] Comment on above: Performed By: #### 4 537-7 #### SHAHID NEVAREZ ([id number]) [facility] ([facility]) [address] [place] [address] Ferritinon 03-27-2024 Ferritin [Mass/Vol] 346 ng/mL High 8-150 [facility] Comment on above: Performed By: #### 5 0957-0 #### SHAHID NEVAREZ ([id number]) [facility] ([facility]) [address] [place] [address] LYME AB MODIFIED 2-TIER TEST ING, 2ND TIERon 03-27-2024 B. burgdorferi IgG and IgM IA (S) [Interp] Positive Abnormal Negative [facility] Comment on above: Result Comment: Both IgM and IgG-class antibodies to the Borrelia species causing Lyme disease were detected, suggesting recent or remote past infection. If both first tier screen test and second tier tests are equivocal, consider repeat testing in 7-14 days if clinically warranted. Performed By: [facility] [address] [place] [address] 38453 Spectrograph Operator: Archie Bernard MD, PhD CLIA Number: [id number] Performed By: #### 5 0957-0 #### SHAHID NEVAREZ ([id number]) [facility] ([facility]) [address] [place] [address] B. burgdorferi IgG IA Ql 1.07 IV High <=0.90 [facility] Comment on above: Result Comment: Reference Interval: Borrelia burgdorferi Ab, IgG by ROCÍO 0.90 IV or less.......... Negative: IgG antibodies to B. burgdorferi not detected. 0.91-1.09 IV............. Equivocal 1.10 IV or greater....... Positive: IgG antibodies to B. burgdorferi detected. Performed By: #### 5 0957-0 #### SHAHID NEVAREZ ([id number]) [facility] ([facility]) [address] [place] [address] B. burgdorferi IgM IA Ql 6.37 IV High <=0.90 [facility] Comment on above: Result Comment: Reference Interval: Borrelia burgdorferi Ab, IgM by ROCÍO 0.90 IV or less.......... Negative: IgM antibodies to B. burgdorferi not detected. 0.91-1.09 IV............. Equivocal 1.10 IV or greater....... Positive: IgM antibodies to B. burgdorferi detected. Performed By: #### 5 0957-0 #### SHAHID NEVAREZ ([id number]) [facility] ([facility]) [address] [place] [address] CBC W Auto Differential pane l (Bld)on 03-23-2024 Basophils (Bld) [#/Vol] 0.03 x10*3/uL Normal 0.00-0.10 [facility] Comment on above: Performed By: #### 5 7021-8 #### SHAHID NEVAREZ ([id number]) [facility] ([facility]) [address] [place] [address] Basophils/100 WBC (Bld) 0.4 % Normal 0.0-2.0 [facility] Comment on above: Performed By: #### 5 7021-8 #### SHAHID NEVAREZ ([id number]) [facility] ([facility]) [address] [place] [address] Eosinophils (Bld) [#/Vol] 0.13 x10*3/uL Normal 0.00-0.40 [facility] Comment on above: Performed By: #### 5 7021-8 #### SHAHID NEVAREZ ([id number]) [facility] ([facility]) [address] [place] [address] 71881 Eosinophils/100 WBC (Bld) 1.9 % Normal 0.0-6.0 [facility] Comment on above: Performed By: #### 5 7021-8 #### SHAHID NEVAREZ ([id number]) [facility] ([facility]) [address] [place] [address] 41823 Erythrocyte distribution width (RBC) [Ratio] 14.7 % High 11.5-14.5 [facility] Comment on above: Performed By: #### 5 7021-8 #### SHAHID NEVAREZ ([id number]) [facility] ([facility]) [address] [place], [place] [id number] Hematocrit (Bld) [Volume fraction] 34.3 % Low 36.0-46.0 [facility] Comment on above: Performed By: #### 5 7021-8 #### SHAHID NEVAREZ ([id number]) [facility] ([facility]) [address] [place] [address] 18673 Hemoglobin (Bld) [Mass/Vol] 11.1 g/dL Low 12.0-16.0 [facility] Comment on above: Performed By: #### 5 7021-8 #### SHAHID NEVAREZ ([id number]) [facility] ([facility]) [address] [place] [address] 68528 Immature granulocytes (Bld) [#/Vol] 0.03 x10*3/uL Normal 0.00-0.50 [facility] Comment on above: Performed By: #### 5 7021-8 #### SHAHID NEVAREZ ([id number]) [facility] ([facility]) [address] [place] [address] 87158 Immature granulocytes/100 WBC (Bld) 0.4 % Normal 0.0-0.9 [facility] Comment on above: Result Comment: Leesa ture Granulocyte Count (IG) includes promyelocytes, myelocytes and metamyelocytes but does not include bands. Percent differential counts (%) should be interpreted in the context of the absolute cell counts (cells/UL). Performed By: #### 5 7021-8 #### SHAHID NEVAREZ ([id number]) [facility] ([facility]) [address] [place] [address] 71943 Lymphocytes (Bld) [#/Vol] 1.23 x10*3/uL Normal 0.80-3.00 [facility] Comment on above: Performed By: #### 5 7021-8 #### SHAHID NEVAREZ ([id number]) [facility] ([facility]) [address] [place], [place] [phone] Lymphocytes/100 WBC (Bld) 18.1 % Normal 13.0-44.0 [facility] Comment on above: Performed By: #### 5 7021-8 #### SHAHID NEVAREZ ([id number]) [facility] ([facility]) [address] [place] [address] 21879 MCH (RBC) [Entitic mass] 30.4 pg Normal 26.0-34.0 [facility] Comment on above: Performed By: #### 5 7021-8 #### SHAHID NEVAREZ ([id number]) [facility] ([facility]) [address] [place] [address] 82652 MCHC (RBC) [Mass/Vol] 32.4 g/dL Normal 32.0-36.0 [facility] Comment on above: Performed By: #### 5 7021-8 #### SHAHID NEVAREZ ([id number]) [facility] ([facility]) [address] [place] [address] 99012 MCV (RBC) [Entitic vol] 94 fL Normal 80-100 [facility] Comment on above: Performed By: #### 5 7021-8 #### SHAHID NEVAREZ ([id number]) [facility] ([facility]) [address] [place] [address] 50748 Monocytes (Bld) [#/Vol] 0.64 x10*3/uL Normal 0.05-0.80 [facility] Comment on above: Performed By: #### 5 7021-8 #### SHAHID NEVAREZ ([id number]) [facility] ([facility]) [address] [place] [address] 05616 Monocytes/100 WBC (Bld) 9.4 % Normal 2.0-10.0 [facility] Comment on above: Performed By: #### 5 7021-8 #### SHAHID NEVAREZ ([id number]) [facility] ([facility]) [address] [place] [address] 31504 Neutrophils (Bld) [#/Vol] 4.75 x10*3/uL Normal 1.60-5.50 [facility] Comment on above: Result Comment: Perc ent differential counts (%) should be interpreted in the context of the absolute cell counts (cells/uL). Performed By: #### 5 7021-8 #### SHAHID NEVAREZ ([id number]) [facility] ([facility]) [address] [place] [address] 49326 Neutrophils/100 WBC (Bld) 69.8 % Normal 40.0-80.0 [facility] Comment on above: Performed By: #### 5 7021-8 #### SHAHID NEVAREZ ([id number]) [facility] ([facility]) [address] [place] [address] 59365 Nucleated RBC/100 WBC (Bld) [Ratio] 0.0 /100 WBCs Normal 0.0-0.0 [facility] Comment on above: Performed By: #### 5 7021-8 #### SHAHID NEVAREZ ([id number]) [facility] ([facility]) [address] [place] [address] 49872 Platelets (Bld) [#/Vol] 190 x10*3/uL Normal 150-450 [facility] Comment on above: Result Comment: Plea se redraw in Blue top tube. Platelet count may be higher than reported due to presence of Platelet Clumps. Performed By: #### 5 7021-8 #### SHAHID NEVAREZ ([id number]) [facility] ([facility]) [address] [place] [address] RBC (Bld) [#/Vol] 3.65 x10*6/uL Low 4.00-5.[address] [facility] Comment on above: Performed By: #### 5 7021-8 #### SHAHID NEVAREZ ([id number]) [facility] ([facility]) [address] [place] [address] WBC (Bld) [#/Vol] 6.8 x10*3/uL Normal 4.4-11.3 [facility] Comment on above: Performed By: #### 5 7021-8 #### SHAHID NEVAREZ ([id number]) [facility] ([facility]) [address] [place] [address] Comprehensive metabolic 2000 panelon 03-23-2024 Albumin BCP dye [Mass/Vol] 3.8 g/dL Normal 3.4-5.0 [facility] Comment on above: Performed By: #### 2 4323-8 #### SHAHID NEVAREZ ([id number]) [facility] ([facility]) [address] [place] [address] ALP [Catalytic activity/Vol] 83 U/L Normal 33-136 [facility] Comment on above: Performed By: #### 2 4323-8 #### SHAHID NEVAREZ ([id number]) [facility] ([facility]) [address] [place] [address] ALT With P-5'-P [Catalytic activity/Vol] 40 U/L Normal 7-45 [facility] Comment on above: Result Comment: Mimi ents treated with Sulfasalazine may generate falsely decreased results for ALT. Performed By: #### 2 4323-8 #### SHAHID NEVAREZ ([id number]) [facility] ([facility]) [address] [place], [place] [phone] Anion gap [Moles/Vol] 10 mmol/L Normal 10-20 [facility] Comment on above: Performed By: #### 2 4323-8 #### SHAHID NEVAREZ ([id number]) [facility] ([facility]) [address] [place] [address] AST With P-5'-P [Catalytic activity/Vol] 28 U/L Normal 9-39 [facility] Comment on above: Performed By: #### 2 4323-8 #### SHAHID NEVAREZ ([id number]) [facility] ([facility]) [facility] [place] [address] Bilirubin [Mass/Vol] 0.5 mg/dL Normal 0.0-1.[address] [facility] Comment on above: Performed By: #### 2 4323-8 #### SHAHID NEVAREZ ([id number]) [facility] ([facility]) [address] [place] [address] 91231 Calcium [Mass/Vol] 8.9 mg/dL Normal 8.6-10.3 [facility] Comment on above: Performed By: #### 2 4323-8 #### SHAHID NEVAREZ ([id number]) [facility] ([facility]) [address] [place] [address] 96476 Chloride [Moles/Vol] 97 mmol/L Low 98-[address] [facility] Comment on above: Performed By: #### 2 4323-8 #### SHAHID NEVAREZ ([id number]) [facility] ([facility]) [address] [place] [address] 29749 CO2 [Moles/Vol] 29 mmol/L Normal 21-32 [facility] Comment on above: Performed By: #### 2 4323-8 #### SHAHID NEVAREZ ([id number]) [facility] ([facility]) [address] [place] [address] 37244 Creatinine [Mass/Vol] 0.87 mg/dL Normal 0.50-1.05 [facility] Comment on above: Performed By: #### 2 4323-8 #### SHAHID NEVAREZ ([id number]) [facility] ([facility]) [address] [place] [address] 77627 Glomerular filtration rate/1.73 sq M.predicted 68 mL/min/1.73m*2 Normal >60 [facility] Comment on above: Result Comment: Calc ulations of estimated GFR are performed using the 2020 CKD-EPI Study Refit equation without the race variable for the IDMS-Traceable creatinine methods. https://jasn.asnjournals.org/content/ASN 730495 Performed By: #### 2 4323-8 #### SHAHID NEVRAEZ ([id number]) [facility] ([facility]) [address] [place] [address] 18661 Glucose [Mass/Vol] 92 mg/dL Normal 74-99 [facility] Comment on above: Performed By: #### 2 3-8 #### SHAHID NEVAREZ ([id number]) [facility] ([facility]) [address] [place] [address] 77823 Potassium [Moles/Vol] 4.5 mmol/L Normal 3.5-5.3 [facility] Comment on above: Performed By: #### 2 3-8 #### SHAHID NEVAREZ ([id number]) [facility] ([facility]) [address] [place] [address] 81780 Protein [Mass/Vol] 6.5 g/dL Normal 6.4-8.2 [facility] Comment on above: Performed By: #### 2 3-8 #### SHAHID NEVAREZ ([id number]) [facility] ([facility]) [address] [place] [address] 83751 Sodium [Moles/Vol] 131 mmol/L Low 136-145 [facility] Comment on above: Performed By: #### 2 3-8 #### SHAHID NEVAREZ ([id number]) [facility] ([facility]) [address] [place] [address] 12094 Urea nitrogen [Mass/Vol] 15 mg/dL Normal 6-23 [facility] Comment on above: Performed By: #### 2 4323-8 #### SHAHID NEVAREZ ([id number]) [facility] ([facility]) [address] [place] [address] 83989 CBC W Auto Differential pane l (Bld)on 03-16-2024 Basophils (Bld) [#/Vol] 0.03 x10*3/uL Normal 0.00-0.10 [facility] Comment on above: Performed By: #### 5 7021-8 #### SHAHID NEVAREZ ([id number]) [facility] ([facility]) [address] [place] [address] 40721 Basophils/100 WBC (Bld) 0.4 % Normal 0.0-2.0 [facility] Comment on above: Performed By: #### 5 7021-8 #### SHAHID NEVAREZ ([id number]) [facility] ([facility]) [address] [place] [address] 20430 Eosinophils (Bld) [#/Vol] 0.19 x10*3/uL Normal 0.00-0.40 [facility] Comment on above: Performed By: #### 5 7021-8 #### SHAHID NEVAREZ ([id number]) [facility] ([facility]) [address] [place] [address] 82330 Eosinophils/100 WBC (Bld) 2.6 % Normal 0.0-6.0 [facility] Comment on above: Performed By: #### 7021-8 #### SHAHID NEVAREZ ([id number]) [facility] ([facility]) [address] [place] [address] 21945 Erythrocyte distribution width (RBC) [Ratio] 14.6 % High 11.5-14.5 [facility] Comment on above: Performed By: #### 5 7021-8 #### SHAHID NEVAREZ ([id number]) [facility] ([facility]) [address] [place] [address] 71715 Hematocrit (Bld) [Volume fraction] 32.3 % Low 36.0-46.0 [facility] Comment on above: Performed By: #### 5 7021-8 #### SHAHID NEVAREZ ([id number]) [facility] ([facility]) [address] [place] [address] 55257 Hemoglobin (Bld) [Mass/Vol] 10.6 g/dL Low 12.0-16.0 [facility] Comment on above: Performed By: #### 5 7021-8 #### SHAHID NEVAREZ ([id number]) [facility] ([facility]) [address] [place] [address] 18490 Immature granulocytes (Bld) [#/Vol] 0.02 x10*3/uL Normal 0.00-0.50 [facility] Comment on above: Performed By: #### 5 7021-8 #### SHAHID NEVAREZ ([id number]) [facility] ([facility]) [address] [place] [address] 93726 Immature granulocytes/100 WBC (Bld) 0.3 % Normal 0.0-0.9 [facility] Comment on above: Result Comment: Leesa ture Granulocyte Count (IG) includes promyelocytes, myelocytes and metamyelocytes but does not include bands. Percent differential counts (%) should be interpreted in the context of the absolute cell counts (cells/UL). Performed By: #### 5 7021-8 #### SHAHID NEVAREZ ([id number]) [facility] ([facility]) [address] [place] [address] 26667 Lymphocytes (Bld) [#/Vol] 1.34 x10*3/uL Normal 0.80-3.00 [facility] Comment on above: Performed By: #### 5 7021-8 #### SHAHID NEVAREZ ([id number]) [facility] ([facility]) [address] [place] [address] 91679 Lymphocytes/100 WBC (Bld) 18.7 % Normal 13.0-44.0 [facility] Comment on above: Performed By: #### 5 7021-8 #### SHAHID NEVAREZ ([id number]) [facility] ([facility]) [address] [place] [address] 55286 MCH (RBC) [Entitic mass] 30.5 pg Normal 26.0-34.0 [facility] Comment on above: Performed By: #### 5 7021-8 #### SHAHID NEVAREZ ([id number]) [facility] ([facility]) [address] [place] [address] 04546 MCHC (RBC) [Mass/Vol] 32.8 g/dL Normal 32.0-36.0 [facility] Comment on above: Performed By: #### 5 7021-8 #### SHAHID NEVAREZ ([id number]) [facility] ([facility]) [facility] [place] [address] MCV (RBC) [Entitic vol] 93 fL Normal 80-100 [facility] Comment on above: Performed By: #### 5 7021-8 #### SHAHID NEVAREZ ([id number]) [facility] ([facility]) [address] [place] [address] 45664 Monocytes (Bld) [#/Vol] 0.45 x10*3/uL Normal 0.05-0.80 [facility] Comment on above: Performed By: #### 5 7021-8 #### SHAHID NEVAREZ ([id number]) [facility] ([facility]) [address] [place] [address] 75189 Monocytes/100 WBC (Bld) 6.3 % Normal 2.0-10.0 [facility] Comment on above: Performed By: #### 5 7021-8 #### SHAHID NEVAREZ ([id number]) [facility] ([facility]) [address] [place] [address] 55116 Neutrophils (Bld) [#/Vol] 5.14 x10*3/uL Normal 1.60-5.50 [facility] Comment on above: Result Comment: Perc ent differential counts (%) should be interpreted in the context of the absolute cell counts (cells/uL). Performed By: #### 5 7021-8 #### SHAHID NEVAREZ ([id number]) [facility] ([facility]) [address] [place] [address] 16172 Neutrophils/100 WBC (Bld) 71.7 % Normal 40.0-80.0 [facility] Comment on above: Performed By: #### 5 7021-8 #### SHAHID NEVAREZ ([id number]) [facility] ([facility]) [address] [place] [address] 40327 Nucleated RBC/100 WBC (Bld) [Ratio] 0.0 /100 WBCs Normal 0.0-0.0 [facility] Comment on above: Performed By: #### 5 7021-8 #### SHAHID NEVAREZ ([id number]) [facility] ([facility]) [address] [place] [address] 80192 Platelets (Bld) [#/Vol] 174 x10*3/uL Normal 150-450 [facility] Comment on above: Result Comment: Plat elet count verified by smear review. Performed By: #### 5 7021-8 #### SHAHID NEVAREZ ([id number]) [facility] ([facility]) [address] [place] [address] 65178 RBC (Bld) [#/Vol] 3.48 x10*6/uL Low 4.00-5.20 [facility] Comment on above: Performed By: #### 5 7021-8 #### SHAHID NEVAREZ ([id number]) [facility] ([facility]) [address] [place] [address] 95165 WBC (Bld) [#/Vol] 7.2 x10*3/uL Normal 4.4-11.[address] [facility] Comment on above: Performed By: #### 5 7021-8 #### SHAHID NEVAREZ ([id number]) [facility] ([facility]) [address] [place] [address] 85784 Erythrocyte distribution width (RBC) [Ratio] 14.8 % High 11.5-14.5 [facility] Comment on above: Performed By: #### 5 7021-8 #### SHAHID NEVAREZ ([id number]) [facility] ([facility]) [address] [place] [address] 87773 Hematocrit (Bld) [Volume fraction] 35.0 % Low 36.0-46.0 [facility] Comment on above: Performed By: #### 7021-8 #### SHAHID NEVAREZ ([id number]) [facility] ([facility]) [address] [place] [address] 39626 Hemoglobin (Bld) [Mass/Vol] 11.3 g/dL Low 12.0-16.0 [facility] Comment on above: Performed By: #### 7021-8 #### SHAHID NEVAREZ ([id number]) [facility] ([facility]) [address] [place] [address] 73121 Immature granulocytes (Bld) [#/Vol] 0.03 x10*3/uL Normal 0.00-0.50 [facility] Comment on above: Performed By: #### 5 7021-8 #### SHAHID NEVAREZ ([id number]) [facility] ([facility]) [address] [place], [place] [id number] Immature granulocytes/100 WBC (Bld) 0.4 % Normal 0.0-0.9 [facility] Comment on above: Result Comment: Leesa ture Granulocyte Count (IG) includes promyelocytes, myelocytes and metamyelocytes but does not include bands. Percent differential counts (%) should be interpreted in the context of the absolute cell counts (cells/UL). Performed By: #### 5 7021-8 #### SHAHID NEVAREZ ([id number]) [facility] ([facility]) [address] [place], [place] [phone] MCH (RBC) [Entitic mass] 30.5 pg Normal 26.0-34.0 [facility] Comment on above: Performed By: #### 5 7021-8 #### SHAHID NEVAREZ ([id number]) [facility] ([facility]) [address] [place] [address] 55699 MCHC (RBC) [Mass/Vol] 32.3 g/dL Normal 32.0-36.0 [facility] Comment on above: Performed By: #### 5 7021-8 #### SHAHID NEVAREZ ([id number]) [facility] ([facility]) [address] [place] [address] 38229 MCV (RBC) [Entitic vol] 94 fL Normal 80-100 U [facility] Comment on above: Performed By: #### 5 7021-8 #### SHAHID NEVAREZ ([id number]) [facility] ([facility]) [address] [place] [address] 86467 Nucleated RBC/100 WBC (Bld) [Ratio] 0.0 /100 WBCs Normal 0.0-0.0 [facility] Comment on above: Performed By: #### 5 7021-8 #### SHAHID NEVAREZ ([id number]) [facility] ([facility]) [address] [place] [address] Platelets (Bld) [#/Vol] 26 x10*3/uL Critically low 150-450 [facility] Comment on above: Performed By: #### 5 7021-8 #### SHAHID NEVAREZ ([id number]) [facility] ([facility]) [address] [place] [address] RBC (Bld) [#/Vol] 3.71 x10*6/uL Low 4.00-5.[address] [facility] Comment on above: Performed By: #### 5 7021-8 #### SHAHID NEVAREZ ([id number]) [facility] ([facility]) [address] [place] [address] WBC (Bld) [#/Vol] 7.9 x10*3/uL Normal 4.4-11.3 [facility] Comment on above: Performed By: #### 5 7021-8 #### SHAHID NEVAREZ ([id number]) [facility] ([facility]) [address] [place] [address] Comprehensive metabolic 2000 panelon 03-16-2024 Albumin BCP dye [Mass/Vol] 3.7 g/dL Normal 3.4-5.0 [facility] Comment on above: Performed By: #### 2 4323-8 #### SHAHID NEVAREZ ([id number]) [facility] ([facility]) [address] [place] [address] ALP [Catalytic activity/Vol] 123 U/L Normal 33-136 [facility] Comment on above: Performed By: #### 2 4323-8 #### SHAHID NEVAREZ ([id number]) [facility] ([facility]) [address] [place] [address] ALT With P-5'-P [Catalytic activity/Vol] 108 U/L High 7-45 [facility] Comment on above: Result Comment: Mimi ents treated with Sulfasalazine may generate falsely decreased results for ALT. Performed By: #### 2 4323-8 #### SHAHID NEVAREZ ([id number]) [facility] ([facility]) [facility] [place] [address] Anion gap [Moles/Vol] 10 mmol/L Normal 10-20 [facility] Comment on above: Performed By: #### 2 432-8 #### SHAHID NEVAREZ ([id number]) [facility] ([facility]) [address] [place] [address] 45749 AST With P-5'-P [Catalytic activity/Vol] 89 U/L High 9-39 [facility] Comment on above: Performed By: #### 2 432-8 #### SHAHID NEVAREZ ([id number]) [facility] ([facility]) [address] [place] [address] 48017 Bilirubin [Mass/Vol] 0.5 mg/dL Normal 0.0-1.2 [facility] Comment on above: Performed By: #### 2 432-8 #### SHAHID NEVAREZ ([id number]) [facility] ([facility]) [address] [place] [address] 39864 Calcium [Mass/Vol] 8.6 mg/dL Normal 8.6-10.3 [facility] Comment on above: Performed By: #### 2 432-8 #### SHAHID NEVAREZ ([id number]) [facility] ([facility]) [facility] [place] [address] Chloride [Moles/Vol] 101 mmol/L Normal 98-107 [facility] Comment on above: Performed By: #### 2 4323-8 #### SHAHID NEVAREZ ([id number]) [facility] ([facility]) [address] [place] [address] 20569 CO2 [Moles/Vol] 26 mmol/L Normal 21-32 [facility] Comment on above: Performed By: #### 2 4323-8 #### SHAHID NEVAREZ ([id number]) [facility] ([facility]) [address] [place] [address] 78638 Creatinine [Mass/Vol] 0.91 mg/dL Normal 0.50-1.05 [facility] Comment on above: Performed By: #### 2 4323-8 #### SHAHID NEVAREZ ([id number]) [facility] ([facility]) [address] [place] [address] 46615 Glomerular filtration rate/1.73 sq M.predicted 65 mL/min/1.73m*2 Normal >60 [facility] Comment on above: Result Comment: Calc ulations of estimated GFR are performed using the 2020 CKD-EPI Study Refit equation without the race variable for the IDMS-Traceable creatinine methods. https://jasn.asnjournals.org/content//ASN.2020 358449 Performed By: #### 2 432-8 #### SHAHID NEVAREZ ([id number]) [facility] ([facility]) [address] [place] [address] 93117 Glucose [Mass/Vol] 142 mg/dL High 74-99 [facility] Comment on above: Performed By: #### 2 432-8 #### SHAHID NEVAREZ ([id number]) [facility] ([facility]) [address] [place] [address] 69197 Potassium [Moles/Vol] 3.4 mmol/L Low 3.5-5.3 [facility] Comment on above: Performed By: #### 2 432-8 #### SHAHID NEVAREZ ([id number]) [facility] ([facility]) [address] [place] [address] 47951 Protein [Mass/Vol] 6.7 g/dL Normal 6.4-8.2 [facility] Comment on above: Performed By: #### 2 4323-8 #### SHAHID NEVAREZ ([id number]) [facility] ([facility]) [address] [place] [address] 97312 Sodium [Moles/Vol] 134 mmol/L Low 136-145 [facility] Comment on above: Performed By: #### 2 4323-8 #### SHAHID NEVAREZ ([id number]) [facility] ([facility]) [address] [place] [address] Urea nitrogen [Mass/Vol] 20 mg/dL Normal 6-23 [facility] Comment on above: Performed By: #### 2 4323-8 #### SHAHID NEVAREZ ([id number]) [facility] ([facility]) [address] [place] [address] Albumin BCP dye [Mass/Vol] 3.6 g/dL Normal 3.4-5.0 [facility] Comment on above: Performed By: #### 2 4323-8 #### SHAHID NEVAREZ ([id number]) [facility] ([facility]) [address] [place] [address] ALP [Catalytic activity/Vol] 125 U/L Normal 33-136 [facility] Comment on above: Performed By: #### 2 432-8 #### SHAHID NEVAREZ ([id number]) [facility] ([facility]) [address] [place] [address] 52118 ALT With P-5'-P [Catalytic activity/Vol] 113 U/L High 7-45 [facility] Comment on above: Result Comment: Mimi ents treated with Sulfasalazine may generate falsely decreased results for ALT. Performed By: #### 2 432-8 #### SHAHID NEVAREZ ([id number]) [facility] ([facility]) [address] [place] [address] Anion gap [Moles/Vol] 13 mmol/L Normal 10-20 [facility] Comment on above: Performed By: #### 2 4323-8 #### SHAHID NEVAREZ ([id number]) [facility] ([facility]) [address] [place] [address] AST With P-5'-P [Catalytic activity/Vol] 98 U/L High 9-39 [facility] Comment on above: Performed By: #### 2 4323-8 #### SHAHID NEVAREZ ([id number]) [facility] ([facility]) [address] [place] [address] Bilirubin [Mass/Vol] 0.5 mg/dL Normal 0.0-1.[address] [facility] Comment on above: Performed By: #### 2 4323-8 #### SHAHID NEVAREZ ([id number]) [facility] ([facility]) [address] [place] [address] 74009 Calcium [Mass/Vol] 8.6 mg/dL Normal 8.6-10.3 [facility] Comment on above: Performed By: #### 2 4323-8 #### SHAHID NEVAREZ ([id number]) [facility] ([facility]) [address] [place] [address] 78048 Chloride [Moles/Vol] 97 mmol/L Low 98-[address] [facility] Comment on above: Performed By: #### 2 4323-8 #### SHAHID NEVAREZ ([id number]) [facility] ([facility]) [address] [place] [address] 68593 CO2 [Moles/Vol] 27 mmol/L Normal 21-32 [facility] Comment on above: Performed By: #### 2 4323-8 #### SHAHID NEVAREZ ([id number]) [facility] ([facility]) [address] [place] [address] 96947 Creatinine [Mass/Vol] 0.94 mg/dL Normal 0.50-1.05 [facility] Comment on above: Performed By: #### 2 4323-8 #### SHAHID NEVAREZ ([id number]) [facility] ([facility]) [address] [place] [address] 72273 Glomerular filtration rate/1.73 sq M.predicted 62 mL/min/1.73m*2 Normal >60 [facility] Comment on above: Result Comment: Calc ulations of estimated GFR are performed using the 2020 CKD-EPI Study Refit equation without the race variable for the IDMS-Traceable creatinine methods. https://jasn.asnjournals.org/content/early//ASN.2020 288281 Performed By: #### 2 4323-8 #### SHAHID NEVAREZ ([id number]) [facility] ([facility]) [address] [place] [address] 79345 Glucose [Mass/Vol] 130 mg/dL High 74-99 [facility] Comment on above: Performed By: #### 2 4323-8 #### SHAHID NEVAREZ ([id number]) [facility] ([facility]) [address] [place] [address] 19564 Potassium [Moles/Vol] 3.8 mmol/L Normal 3.5-5.3 [facility] Comment on above: Performed By: #### 2 4323-8 #### SHAHID NEVAREZ ([id number]) [facility] ([facility]) [address] [place] [address] 02412 Protein [Mass/Vol] 6.2 g/dL Low 6.4-8.2 [facility] Comment on above: Performed By: #### 2 4323-8 #### SHAHID NEVAREZ ([id number]) [facility] ([facility]) [address] [place] [address] Sodium [Moles/Vol] 133 mmol/L Low 136-145 [facility] Comment on above: Performed By: #### 2 4323-8 #### SHAHID NEVAREZ ([id number]) [facility] ([facility]) [address] [place], [place] [address] Urea nitrogen [Mass/Vol] 17 mg/dL Normal 6-23 [facility] Comment on above: Performed By: #### 2 4323-8 #### SHAHID NEVAREZ ([id number]) [facility] ([facility]) [address] [place] [address] 51156 Manual differential performe d Ql (Bld)on 03-16-2024 Basophils (Bld) [#/Vol] 0.00 x10*3/uL Normal 0.00-0.10 [facility] Comment on above: Performed By: #### 5 0957-0 #### SHAHID NEVAREZ ([id number]) [facility] ([facility]) [address] [place] [address] 80192 Basophils/100 WBC (Bld) 0.0 % Normal 0.0-2.0 [facility] Comment on above: Performed By: #### 5 0957-0 #### SHAHID NEVAREZ ([id number]) [facility] ([facility]) [address] [place] [address] 68889 Cells Counted Total (Bld) [#] 100 Normal [facility] Comment on above: Performed By: #### 5 57-0 #### SHAHID NEVAREZ ([id number]) [facility] ([facility]) [address] [place] [address] 13283 Eosinophils (Bld) [#/Vol] 0.24 x10*3/uL Normal 0.00-0.40 [facility] Comment on above: Performed By: #### 5 57-0 #### SHAHID NEVAREZ ([id number]) [facility] ([facility]) [address] [place] [address] 91635 Eosinophils/100 WBC (Bld) 3.0 % Normal 0.0-6.0 [facility] Comment on above: Performed By: #### 5 57-0 #### SHAHID NEVAREZ ([id number]) [facility] ([facility]) [address] [place] [address] 53391 Giant platelets LM Ql (Bld) Few Normal [facility] Comment on above: Performed By: #### 5 57-0 #### SHAHID NEVAREZ ([id number]) [facility] ([facility]) [address] [place] [address] 65181 Lymphocytes (Bld) [#/Vol] 2.84 x10*3/uL Normal 0.80-3.00 [facility] Comment on above: Performed By: #### 5 57-0 #### SHAHID NEVAREZ ([id number]) [facility] ([facility]) [address] [place] [address] 03033 Lymphocytes/100 WBC (Bld) 36.0 % Normal 13.0-44.0 [facility] Comment on above: Performed By: #### 5 57-0 #### SHAHID NEVAREZ ([id number]) [facility] ([facility]) [address] [place] [address] 24264 Metamyelocytes (Bld) [#/Vol] 0.24 x10*3/uL Normal 0.00-0.00 [facility] Comment on above: Performed By: #### 5 0957-0 #### SHAHID NEVAREZ ([id number]) [facility] ([facility]) [address] [place] [address] 78947 Metamyelocytes/100 WBC (Bld) 3.0 % Normal 0.0-0.0 [facility] Comment on above: Performed By: #### 5 0957-0 #### SHAHID NEVAREZ ([id number]) [facility] ([facility]) [address] [place] [address] 31971 Monocytes (Bld) [#/Vol] 0.79 x10*3/uL Normal 0.05-0.80 [facility] Comment on above: Performed By: #### 5 57-0 #### SHAHID NEVAREZ ([id number]) [facility] ([facility]) [address] [place] [address] 14788 Monocytes/100 WBC (Bld) 10.0 % Normal 2.0-10.0 [facility] Comment on above: Performed By: #### 5 57-0 #### SHAHID NEVAREZ ([id number]) [facility] ([facility]) [address] [place] [address] 27866 RBC morphology finding Nom (Bld) See Below [facility] Comment on above: Performed By: #### 5 57-0 #### SHAHID NEVAREZ ([id number]) [facility] ([facility]) [address] [place] [address] Schistocytes LM Ql (Bld) Few Normal [facility] Comment on above: Performed By: #### 5 0957-0 #### SHAHID NEVAREZ ([id number]) [facility] ([facility]) [address] [place] [address] 17031 Segmented neutrophils (Bld) [#/Vol] 3.79 x10*3/uL Normal 1.60-5.00 [facility] Comment on above: Performed By: #### 5 0957-0 #### SHAHID NEVAREZ ([id number]) [facility] ([facility]) [address] [place] [address] Segmented neutrophils/100 WBC (Bld) 48.0 % Normal 40.0-80.0 [facility] Comment on above: Result Comment: Perc ent differential counts (%) should be interpreted in the context of the absolute cell counts (cells/uL). Performed By: #### 5 0957-0 #### SHAHID NEVAREZ ([id number]) [facility] ([facility]) [address] [place] [address] comment (Bld) [Interp]on 03-16-2024 PATH REVIEW-CBC DIFFERENTIAL Frequent platelet clumps. Repeat collection with including citrate tube may be of interest. Normocytic anemia with mild anisopoikilocytosis. [facility] Comment on above: Result Comment: Elec tronically signed out by Aria Rushing MD PhD on 03/19/24 at 2:12 PM. By the signature on this report, the individual or group listed as making the Final Interpretation/Diagnosis certifies that they have reviewed this case. Performed By: #### 1 4869-2 #### VALENTIN Mckeon ([id number]) [facility] ([facility]) [address] [place] [address] RBC shape Nom (Bld)on 2023 Giant platelets LM Ql (Bld) Few [facility] Comment on above: Performed By: #### 1 8225-3 #### SHAHID NEVAREZ ([id number]) [facility] ([facility]) [address] [place] [address] RBC morphology finding Nom (Bld) See Below [facility] Comment on above: Performed By: #### 1 8225-3 #### SHAHID NEVAREZ ([id number]) [facility] ([facility]) [address] [place] [address] Schistocytes LM Ql (Bld) Few [facility] Comment on above: Performed By: #### 1 8225-3 #### SHAHID NEVAREZ ([id number]) [facility] ([facility]) [address] [place] [address] DBT Breast - bilateralon No mammographic evidence of malignancy. Based on the Tyrer-Cuzick model for breast cancer risk assessment, the patient's lifetime risk of breast cancer is 2.5%. Patients with over a 20% lifetime risk of developing breast cancer may benefit from additional screening with breast MRI or ultrasound. Please note that this estimate is based on responses provided on the patient questionnaire. For more information regarding high risk consultation, please call [phone]. BI-RADS CATEGORY: BI-RADS Category: 1 Negative. Recommendation: Routine Screening Mammogram in 1 Year. Recommended Date: 1 Year. Laterality: Bilateral. MACRO: None Signed by: Stephon Rendon 02/22/2024 9:27 AM Dictation workstation: [id number] EDDI RIVERA Interpreted By: Stephon Rendon, STUDY: BI MAMMO BILATERAL SCREENING TOMOSYNTHESIS; 02/21/2024 1:22 pm ACCESSION NUMBER(S): [id number] ORDERING CLINICIAN: AKANKSHA MILLAN INDICATION: Screening. COMPARISON: Digital mammograms dated 02/18/2023 FINDINGS: CC and MLO 2D digital mammograms and digital breast tomosynthesis images were obtained of the bilateral breasts. 3-D volume images were reconstructed in 4 views at an independent workstation as 1 mm slices through the breasts in both the CC and MLO projections. Density: There are areas of scattered fibroglandular tissue. No discrete mass or focal asymmetry is identified. No suspicious microcalcifications or foci of architectural distortion are seen. There has been no significant change. This study was interpreted with CAD. MMStephon Parsons MD - 02/22/2024 Interpreted By: Stephon Rendon, STUDY: BI MAMMO BILATERAL SCREENING TOMOSYNTHESIS; 02/21/2024 1:22 pm ACCESSION NUMBER(S): [id number] ORDERING CLINICIAN: AKANKSHA MILLAN INDICATION: Screening. COMPARISON: Digital mammograms dated 02/18/2023 FINDINGS: CC and MLO 2D digital mammograms and digital breast tomosynthesis images were obtained of the bilateral breasts. 3-D volume images were reconstructed in 4 views at an independent workstation as 1 mm slices through the breasts in both the CC and MLO projections. Density: There are areas of scattered fibroglandular tissue. No discrete mass or focal asymmetry is identified. No suspicious microcalcifications or foci of architectural distortion are seen. There has been no significant change. This study was interpreted with CAD. IMPRESSION: No mammographic evidence of malignancy. Based on the Tyrer-Cuzick model for breast cancer risk assessment, the patient's lifetime risk of breast cancer is 2.5%. Patients with over a 20% lifetime risk of developing breast cancer may benefit from additional screening with breast MRI or ultrasound. Please note that this estimate is based on responses provided on the patient questionnaire. For more information regarding high risk consultation, please call [phone]. BI-RADS CATEGORY: BI-RADS Category: 1 Negative. Recommendation: Routine Screening Mammogram in 1 Year. Recommended Date: 1 Year. Laterality: Bilateral. MACRO: None Signed by: Stephon Rendon 02/22/2024 9:27 AM Dictation workstation: [id number] [facility] Work Phone: DBT Breast - bilateralOrdere d By: Stephon Rendon on 02-22-2024 [facility] Work Phone: BI MAMMO BILATERAL SCREENING TOMOSYNTHESISon 02-21-2024 BI MAMMO BILATERAL SCREENING TOMOSYNTHESIS Interpreted By: Stephon Rendon, STUDY: BI MAMMO BILATERAL SCREENING TOMOSYNTHESIS; 02/21/2024 1:22 pm ACCESSION NUMBER(S): [id number] ORDERING CLINICIAN: AKANKSHA MILLAN INDICATION: Screening. COMPARISON: Digital mammograms dated 02/18/2023 FINDINGS: CC and MLO 2D digital mammograms and digital breast tomosynthesis images were obtained of the bilateral breasts. 3-D volume images were reconstructed in 4 views at an independent workstation as 1 mm slices through the breasts in both the CC and MLO projections. Density: There are areas of scattered fibroglandular tissue. No discrete mass or focal asymmetry is identified. No suspicious microcalcifications or foci of architectural distortion are seen. There has been no significant change. This study was interpreted with CAD. IMPRESSION: No mammographic evidence of malignancy. Based on the Tyrer-Cuzick model for breast cancer risk assessment, the patient's lifetime risk of breast cancer is 2.5%. Patients with over a 20% lifetime risk of developing breast cancer may benefit from additional screening with breast MRI or ultrasound. Please note that this estimate is based on responses provided on the patient questionnaire. For more information regarding high risk consultation, please call [phone]. BI-RADS CATEGORY: BI-RADS Category: 1 Negative. Recommendation: Routine Screening Mammogram in 1 Year. Recommended Date: 1 Year. Laterality: Bilateral. MACRO: None Signed by: Stephon Rendon 02/22/2024 9:27 AM Dictation workstation: [id number] [facility] DBT Breast - bilateralon Radiology Study observation (narrative) [facility] Work Phone: [phone] POCT UA Automated manually r esultedon 12-20-2023 Appearance (U) Clear Clear [facility] Work Phone: Glucose Test strip (U) [Mass/Vol] Negative NEGATIVE mg/dl [facility] Work Phone: Hemoglobin Ql (U) Negative NEGATIVE [facility] Work Phone: Leukocyte esterase Test strip Ql (U) Negative NEGATIVE [facility] Work Phone: [phone] Nitrite Ql (U) Negative NEGATIVE [facility] Work Phone: pH (U) 7.0 [pH] No Reference Range Established [facility] Work Phone: [phone] POC Bilirubin, Urine Negative NEGATIVE [facility] Work Phone: POC Color, Urine Yellow Straw, Yellow, Light-Yellow [facility] Work Phone: POC Ketones, Urine Negative NEGATIVE mg/dl [facility] Work Phone: POC Protein, Urine Negative NEGATIVE, 30 (1+) mg/dl [facility] Work Phone: POC Specific [place], Urine 1.010 1.005 - 1.035 [facility] Work Phone: POC Urobilinogen, Urine 0.2 0.2, 1.0 EU/DL [facility] Work Phone: [facility] Work Phone: POCT UA Automated manually r esultedOrdered By: Naomi Ardon on 12-12-2023 Appearance (U) Clear Clear [facility] Glucose Test strip (U) [Mass/Vol] Negative NEGATIVE mg/dl [facility] Hemoglobin Ql (U) LARGE (3+) Abnormal NEGATIVE [facility] Interpretation and review of laboratory results Abnormal [facility] Leukocyte esterase Test strip Ql (U) MODERATE (2+) Abnormal NEGATIVE [facility] Nitrite Ql (U) Negative NEGATIVE [facility] pH (U) 6.5 [pH] No Reference Range Established [facility] POC Bilirubin, Urine Negative NEGATIVE [facility] POC Color, Urine Yellow Straw, Yellow, Light-Yellow [facility] POC Ketones, Urine Negative NEGATIVE mg/dl [facility] POC Protein, Urine Negative NEGATIVE, 30 (1+) mg/dl [facility] POC Specific [place], Urine 1.010 1.005 - 1.035 [facility] POC Urobilinogen, Urine 0.2 0.2, 1.0 EU/DL [facility] TRANSTHORACIC ECHO (TTE) [facility] 09-06-2023 TRANSTHORACIC ECHO (TTE) [place] [address] [phone], TRANSTHORACIC ECHOCARDIOGRAM REPORT Patient Name: KIM ROCHA Annamarie Physician: [id number] Reid MD Study Date: 09/06/2023 Ordering Provider: Moe REID MRN/PID: [id number] Fellow: Nurse: Sweta Mcmahan RN Date of 1945 Chief Ii Dispatcher: Tommie Marcos RDCS /Age: years Gender: F Additional Staff: Height: 167.64 cm Admit Date: Weight: 63.96 kg Admission Status: Outpatient BSA: 1.72 m2 Department [facility] Echo Lab Location: Blood Pressure: 174 /102 mmHg Study Type: TRANSTHORACIC ECHO (TTE) COMPLETE Diagnosis/ICD: Syncope-R55 CPT Codes: Echo Complete w Full Doppler-[id number] Study Detail: The following Echo studies were performed: 2D, M-Mode, Doppler and color flow. Agitated saline used as a contrast agent for intraseptal flow evaluation. PHYSICIAN INTERPRETATION: Left Ventricle: Left ventricular systolic function is normal, with an estimated ejection fraction of 60%. There are no regional wall motion abnormalities. The left ventricular cavity size is normal. Spectral Doppler shows a normal pattern of left ventricular diastolic filling. Left Atrium: The left atrium is normal in size. A bubble study using agitated saline was performed. Bubble study is negative. Right Ventricle: The right ventricle is normal in size. There is normal right ventricular global systolic function. Right Atrium: The right atrium is normal in size. Aortic Valve: The aortic valve is trileaflet. There is no evidence of aortic valve regurgitation. The peak instantaneous gradient of the aortic valve is 6.0 mmHg. The mean gradient of the aortic valve is 3.0 mmHg. Mitral Valve: The mitral valve is normal in structure. There is mild mitral valve regurgitation. Tricuspid Valve: The tricuspid valve is structurally normal. There is trace tricuspid regurgitation. Pulmonic Valve: The pulmonic valve is not well visualized. There is no indication of pulmonic valve regurgitation. Pericardium: There is no pericardial effusion noted. Aorta: The aortic root is normal. Systemic Veins: The inferior vena cava appears to be of normal size. There is less than 50% IVC collapse with inspiration. CONCLUSIONS: 1. Left ventricular systolic function is normal with a 60% estimated ejection fraction. 2. Compared to prior echocardiogram dated January 27, 2021: Ejection fraction is unchanged. QUANTITATIVE DATA SUMMARY: 2D MEASUREMENTS: Normal Ranges: Ao Root d: 2.60 cm (2.0-3.7cm) LAs: 2.90 cm (2.7-4.0cm) IVSd: 0.88 cm (0.6-1.1cm) LVPWd: 0.78 cm (0.6-1.1cm) LVIDd: 4.46 cm (3.9-5.9cm) LVIDs: 3.00 cm LV Mass Index: 68.0 g/m2 LV % FS 32.7 % LA VOLUME: Normal Ranges: LA Vol A4C: 41.2 ml (22+/-6mL/m2) LA Vol A2C: 28.5 ml LA Vol BP: 35.8 ml LA Vol Index A4C: 23.9ml/m2 LA Vol Index A2C: 16.5 ml/m2 LA Vol Index BP: 20.8 ml/m2 LA Area A4C: 15.6 cm2 LA Area A2C: 12.4 cm2 LA Major Ruth A4C: 5.0 cm LA Major Ruth A2C: 4.6 cm LA Volume Index: 23.5 ml/m2 LA Vol A4C: 40.4 ml LA Vol A2C: 27.5 ml LV SYSTOLIC FUNCTION BY 2D PLANIMETRY (MOD): Normal Ranges: EF-A4C View: 64.4 % (>=55%) EF-A2C View: 61.1 % EF-Biplane: 63.2 % LV DIASTOLIC FUNCTION: Normal Ranges: MV Peak E: 0.87 m/s (0.7-1.2 m/s) MV Peak A: 0.80 m/s (0.42-0.7 m/s) E/A Ratio: 1.08 (1.0-2.2) MV lateral e' 0.10 m/s MV medial e' 0.12 m/s MITRAL VALVE: Normal Ranges: MV DT: 236 msec (150-240msec) AORTIC VALVE: Normal Ranges: AoV Vmax: 1.22 m/s (<=1.7m/s) AoV Peak P.0 mmHg (<20mmHg) AoV Mean P.0 mmHg (1.7-11.5mmHg) LVOT Max Hardeep: 1.00 m/s (<=1.1m/s) AoV VTI: 29.90 cm (18-25cm) LVOT VTI: 20.70 cm LVOT Diameter: 1.90 cm (1.8-2.4cm) AoV Area, VTI: 1.96 cm2 (2.5-5.5cm2) AoV Area,Vmax: 2.32 cm2 (2.5-4.5cm2) AoV Dimensionless Index: 0.69 RIGHT VENTRICLE: RV Basal 3.75 cm RV Mid 2.65 cm RV Major 7.8 cm TAPSE: 22.7 mm RV s' 0.13 m/s [id number] Reid MD Electronically signed on 09/06/2023 at 12:43:19 PM Final Normal [facility] US Heart TransthoracicOrdere d By: Milan Reid on 09-06-2023 Aortic Valve Area by Continuity of Peak Velocity 2.32 [facility] Work Phone: [phone] Aortic Valve Area by Continuity of VTI 1.96 [facility] Work Phone: [phone] AV mn grad 3.0 [facility] Work Phone: [phone] AV pk grad 6.0 [facility] Work Phone: [phone] AV pk hardeep 1.22 [facility] Work Phone: [phone] LA vol index A/L 20.8 [facility] Work Phone: [phone] LV A4C EF 64.4 [facility] Work Phone: [phone] LV biplane EF 63 [facility] Work Phone: [phone] LVIDd 4.46 [facility] Work Phone: [phone] LVOT diam 1.90 [facility] Work Phone: [phone] MV E/A ratio 1.09 [facility] Work Phone: [phone] RV free wall pk S' 12.90 [facility] Work Phone: [phone] Tricuspid annular plane systolic excursion 2.3 [facility] Work Phone: [phone] [facility] Work Phone: [phone] [place] [address] [phone], TRANSTHORACIC ECHOCARDIOGRAM REPORT Patient Name: AFUA AJ De Luna Physician: Moe Reid MD Study Date: 09/06/2023 Ordering Provider: Moe REID MRN/PID: [id number] Fellow: Nurse: Sweta Mcmahan RN Date of 1945 Chief Ii Dispatcher: Tommie Marcos RDCS /Age: years Gender: F Additional Staff: Height: 167.64 cm Admit Date: Weight: 63.96 kg Admission Status: Outpatient BSA: 1.72 m2 Department [facility] Echo Lab Location: Blood Pressure: 174 /102 mmHg Study Type: TRANSTHORACIC ECHO (TTE) COMPLETE Diagnosis/ICD: Syncope-R55 CPT Codes: Echo Complete w Full Doppler-[id number] Study Detail: The following Echo studies were performed: 2D, M-Mode, Doppler and color flow. Agitated saline used as a contrast agent for intraseptal flow evaluation. PHYSICIAN INTERPRETATION: Left Ventricle: Left ventricular systolic function is normal, with an estimated ejection fraction of 60%. There are no regional wall motion abnormalities. The left ventricular cavity size is normal. Spectral Doppler shows a normal pattern of left ventricular diastolic filling. Left Atrium: The left atrium is normal in size. A bubble study using agitated saline was performed. Bubble study is negative. Right Ventricle: The right ventricle is normal in size. There is normal right ventricular global systolic function. Right Atrium: The right atrium is normal in size. Aortic Valve: The aortic valve is trileaflet. There is no evidence of aortic valve regurgitation. The peak instantaneous gradient of the aortic valve is 6.0 mmHg. The mean gradient of the aortic valve is 3.0 mmHg. Mitral Valve: The mitral valve is normal in structure. There is mild mitral valve regurgitation. Tricuspid Valve: The tricuspid valve is structurally normal. There is trace tricuspid regurgitation. Pulmonic Valve: The pulmonic valve is not well visualized. There is no indication of pulmonic valve regurgitation. Pericardium: There is no pericardial effusion noted. Aorta: The aortic root is normal. Systemic Veins: The inferior vena cava appears to be of normal size. There is less than 50% IVC collapse with inspiration. CONCLUSIONS: 1. Left ventricular systolic function is normal with a 60% estimated ejection fraction. 2. Compared to prior echocardiogram dated January 27, 2021: Ejection fraction is unchanged. QUANTITATIVE DATA SUMMARY: 2D MEASUREMENTS: Normal Ranges: Ao Root d: 2.60 cm (2.0-3.7cm) LAs: 2.90 cm (2.7-4.0cm) IVSd: 0.88 cm (0.6-1.1cm) LVPWd: 0.78 cm (0.6-1.1cm) LVIDd: 4.46 cm (3.9-5.9cm) LVIDs: 3.00 cm LV Mass Index: 68.0 g/m2 LV % FS 32.7 % LA VOLUME: Normal Ranges: LA Vol A4C: 41.2 ml (22+/-6mL/m2) LA Vol A2C: 28.5 ml LA Vol BP: 35.8 ml LA Vol Index A4C: 23.9ml/m2 LA Vol Index A2C: 16.5 ml/m2 LA Vol Index BP: 20.8 ml/m2 LA Area A4C: 15.6 cm2 LA Area A2C: 12.4 cm2 LA Major Ruth A4C: 5.0 cm LA Major Ruth A2C: 4.6 cm LA Volume Index: 23.5 ml/m2 LA Vol A4C: 40.4 ml LA Vol A2C: 27.5 ml LV SYSTOLIC FUNCTION BY 2D PLANIMETRY (MOD): Normal Ranges: EF-A4C View: 64.4 % (>=55%) EF-A2C View: 61.1 % EF-Biplane: 63.2 % LV DIASTOLIC FUNCTION: Normal Ranges: MV Peak E: 0.87 m/s (0.7-1.2 m/s) MV Peak A: 0.80 m/s (0.42-0.7 m/s) E/A Ratio: 1.08 (1.0-2.2) MV lateral e' 0.10 m/s MV medial e' 0.12 m/s MITRAL VALVE: Normal Ranges: MV DT: 236 msec (150-240msec) AORTIC VALVE: Normal Ranges: AoV Vmax: 1.22 m/s (<=1.7m/s) AoV Peak P.0 mmHg (<20mmHg) AoV Mean P.0 mmHg (1.7-11.5mmHg) LVOT Max Hardeep: 1.00 m/s (<=1.1m/s) AoV VTI: 29.90 cm (18-25cm) LVOT VTI: 20.70 cm LVOT Diameter: 1.90 cm (1.8-2.4cm) AoV Area, VTI: 1.96 cm2 (2.5-5.5cm2) AoV Area,Vmax: 2.32 cm2 (2.5-4.5cm2) AoV Dimensionless Index: 0.69 RIGHT VENTRICLE: RV Basal 3.75 cm RV Mid 2.65 cm RV Major 7.8 cm TAPSE: 22.7 mm RV s' 0.13 m/s [id number] Milan Reid MD Electronically signed on 09/06/2023 at 12:43:19 PM Final Milan Angela MD - 09/06/2023 [place] [address] [phone], TRANSTHORACIC ECHOCARDIOGRAM REPORT Patient Name: KIM ROCHA Annamarie Physician: Moe Reid MD Study Date: 09/06/2023 Ordering Provider: Moe REID MRN/PID: [id number] Fellow: Nurse: Sweta Mcmahan RN Date of 1945 Chief Ii Dispatcher: Tommie Marcos RDCS /Age: years Gender: F Additional Staff: Height: 167.64 cm Admit Date: Weight: 63.96 kg Admission Status: Outpatient BSA: 1.72 m2 Department [facility] Echo Lab Location: Blood Pressure: 174 /102 mmHg Study Type: TRANSTHORACIC ECHO (TTE) COMPLETE Diagnosis/ICD: Syncope-R55 CPT Codes: Echo Complete w Full Doppler-[id number] Study Detail: The following Echo studies were performed: 2D, M-Mode, Doppler and color flow. Agitated saline used as a contrast agent for intraseptal flow evaluation. PHYSICIAN INTERPRETATION: Left Ventricle: Left ventricular systolic function is normal, with an estimated ejection fraction of 60%. There are no regional wall motion abnormalities. The left ventricular cavity size is normal. Spectral Doppler shows a normal pattern of left ventricular diastolic filling. Left Atrium: The left atrium is normal in size. A bubble study using agitated saline was performed. Bubble study is negative. Right Ventricle: The right ventricle is normal in size. There is normal right ventricular global systolic function. Right Atrium: The right atrium is normal in size. Aortic Valve: The aortic valve is trileaflet. There is no evidence of aortic valve regurgitation. The peak instantaneous gradient of the aortic valve is 6.0 mmHg. The mean gradient of the aortic valve is 3.0 mmHg. Mitral Valve: The mitral valve is normal in structure. There is mild mitral valve regurgitation. Tricuspid Valve: The tricuspid valve is structurally normal. There is trace tricuspid regurgitation. Pulmonic Valve: The pulmonic valve is not well visualized. There is no indication of pulmonic valve regurgitation. Pericardium: There is no pericardial effusion noted. Aorta: The aortic root is normal. Systemic Veins: The inferior vena cava appears to be of normal size. There is less than 50% IVC collapse with inspiration. CONCLUSIONS: 1. Left ventricular systolic function is normal with a 60% estimated ejection fraction. 2. Compared to prior echocardiogram dated January 27, 2021: Ejection fraction is unchanged. QUANTITATIVE DATA SUMMARY: 2D MEASUREMENTS: Normal Ranges: Ao Root d: 2.60 cm (2.0-3.7cm) LAs: 2.90 cm (2.7-4.0cm) IVSd: 0.88 cm (0.6-1.1cm) LVPWd: 0.78 cm (0.6-1.1cm) LVIDd: 4.46 cm (3.9-5.9cm) LVIDs: 3.00 cm LV Mass Index: 68.0 g/m2 LV % FS 32.7 % LA VOLUME: Normal Ranges: LA Vol A4C: 41.2 ml (22+/-6mL/m2) LA Vol A2C: 28.5 ml LA Vol BP: 35.8 ml LA Vol Index A4C: 23.9ml/m2 LA Vol Index A2C: 16.5 ml/m2 LA Vol Index BP: 20.8 ml/m2 LA Area A4C: 15.6 cm2 LA Area A2C: 12.4 cm2 LA Major Ruth A4C: 5.0 cm LA Major Ruth A2C: 4.6 cm LA Volume Index: 23.5 ml/m2 LA Vol A4C: 40.4 ml LA Vol A2C: 27.5 ml LV SYSTOLIC FUNCTION BY 2D PLANIMETRY (MOD): Normal Ranges: EF-A4C View: 64.4 % (>=55%) EF-A2C View: 61.1 % EF-Biplane: 63.2 % LV DIASTOLIC FUNCTION: Normal Ranges: MV Peak E: 0.87 m/s (0.7-1.2 m/s) MV Peak A: 0.80 m/s (0.42-0.7 m/s) E/A Ratio: 1.08 (1.0-2.2) MV lateral e' 0.10 m/s MV medial e' 0.12 m/s MITRAL VALVE: Normal Ranges: MV DT: 236 msec (150-240msec) AORTIC VALVE: Normal Ranges: AoV Vmax: 1.22 m/s (<=1.7m/s) AoV Peak P.0 mmHg (<20mmHg) AoV Mean P.0 mmHg (1.7-11.5mmHg) LVOT Max Hardeep: 1.00 m/s (<=1.1m/s) AoV VTI: 29.90 cm (18-25cm) LVOT VTI: 20.70 cm LVOT Diameter: 1.90 cm (1.8-2.4cm) AoV Area, VTI: 1.96 cm2 (2.5-5.5cm2) AoV Area,Vmax: 2.32 cm2 (2.5-4.5cm2) AoV Dimensionless Index: 0.69 RIGHT VENTRICLE: RV Basal 3.75 cm RV Mid 2.65 cm RV Major 7.8 cm TAPSE: 22.7 mm RV s' 0.13 m/s [id number] Milan Reid MD Electronically signed on 09/06/2023 at 12:43:19 PM Final [facility] Work Phone: ECG 12 lead (Clinic Performe d)on 08-25-2023 EKG shows sinus bradycardia, normal QTc, heart rate [address]-T segment changes [facility] Work Phone: DIGITAL MAMM SCREENING W/ TO Pierce 02-18-2023 DIGITAL MAMM SCREENING W/ GABRIELA Patient Name: KIM ROCHA STUDY: Digital mammography screening with gabriela; 02/18/2023 11:07 am ACCESSION NUMBER(S): [id number] ORDERING CLINICIAN: AKANKSHA MILLAN INDICATION: Screening. COMPARISON: [...] change. This study was interpreted with CAD. IMPRESSION: No mammographic evidence of malignancy. BI-RADS CATEGORY: Category: 1 - Negative. Recommendation: 1 Year Screening. Electronically signed by: STEPHON RENDON MD [facility] Office Visit (Cardiology)on 08-26-2022 Follow-up visit Orders Pulmonary hypertension IO EKG Electrocardiogram- 12 Lead; Status:Complete; Done: 26Aug2022 11:03AM Chief Complaint Pulm HTN History of Present [id number] female with a medical history of hyperlipidemia, [...] appeared to be monomorphic -Denies any palpitations. Does have some noncardiac complaints including knee/calf pain (not claudication), occasional photopsia in visual field (has been seeing wet process miller) Active Problems Problems Acute lower UTI (599.0) (N39.0) Breast cancer screening by mammogram (V76.12) (Z12.31) Dry eye syndrome (375.15) (H04.129) Elevated glucose (790.29) (R73.09) Hematuria (599.70) (R31.9) Hyperlipemia, mixed (272.2) (E78.2) Irregular heartbeat (427.9) (I49.9) Irritable bowel syndrome (IBS) (564.1) (K58.9) Medicare annual wellness visit, subsequent (V70.0) (Z00.00) Menopause (627.2) (Z78.0) Osteoarthritis (715.90) (M19.90) Pulmonary hypertension (416.8) (I27.20) Rheumatoid arthritis (714.0) (M06.9) Vitamin B12 deficiency (266.2) (E53.8) Surgical History Problems History of Colonoscopy 2018, [place], negative History of Dilation and curettage History of Eye surgery cataracts History of Hysterectomy History of Tubal ligation Past Medical History Problems History of bone density study (V15.) (Z92.89) 01/03/2019 History of mammogram (V1.) (Z92.89) 01/03/2019 Current Meds Medication NameInstruction Aspirin 81 MG TABSTAKE 1 TABLET DAILY. [facility] Calcium 600 + D/Minerals 600-800 MG-UNIT Oral TabletTake 1 tablet twice daily Dicyclomine HCl - 10 MG Oral CapsuleTAKE 1 CAPSULE 4 TIMES DAILY Folic Acid 1 MG Oral TabletTAKE 1 TABLET TWICE DAILY. Meloxicam 15 MG Oral TabletTAKE TABLET PRN Methotrexate 2.5 MG Oral TabletTAKE 6 TABLET Weekly Metoprolol Tartrate 25 MG Oral TabletTAKE 1 TABLET TWICE DAILY. Multi-Vitamins TABSTAKE 1 TABLET DAILY. Sanders Colon Health Oral CapsuleUSE DIRECTED. Plaquenil 200 MG Oral TabletTake 1 tablet twice daily predniSONE 10 MG Oral TabletTAKE 1 TABLET Daily PRN FLARES Vitamin B-6 100 MG Oral TabletTAKE 1 TABLET DAILY DIRECTED. Vitamin E 400 UNIT Oral TabletTAKE 2 TABLET Daily Allergies Medication Vicodin TABS Hallucinations;; Recorded By: Kaykay Gonzales; 11/29/2019 11:12:59 AM Amoxil Rash; Recorded By: Kaykay Gonzales; 11/29/2019 11:12:59 AM Augmentin Rash; Recorded By: Kaykay Gonzales; 11/29/2019 11:12:59 AM diclofenac Recorded By: Kaykay Gonzales; 11/29/2019 11:12:59 AM Additional reactions - N+V - Nausea and vomiting tramadol Recorded By: Kaykay Gonzales; 11/29/2019 11:12:59 AM Additional reactions - N+V - Nausea and vomiting Family History Mother Family history of heart failure (V17.49) (Z82.49) Family history of hypertension (V17.49) (Z82.49) Father Family history of heart failure (V17.49) (Z82.49) Family history of hypertension (V17.49) (Z82.49) Daughter Family history of Brother Family history of acute myocardial infarction (V17.3) (Z82.49) Family history of coronary artery disease (V17.3) (Z82.49) Social History Problems Denied: History of Consumes alcohol occasionally Drinks coffee Never chewed tobacco (V49.89) (Z78.9) No illicit drug use Non-smoker (V49.89) (Z78.9) Patient has healthcare proxy and living will (V49.89) (Z78.9) Review of Systems Constitutional: Denies any fever or chills Eyes: Denies any eye pain or blurry vision ENT: Denies any ear pain or hearing loss Cardiovascular: The heart rate is not slow, the heart rate is not fast Respiratory: Denies any asthma/wheezing Gastrointestinal: Denies any veronica colored stools or fatty food intolerance Genitourinary: Denies any blood in the urine or pelvic pain Musculoskeletal: Denies any swelling in the joints or difficulty walking Skin: Denies any skin lumps or skin lesions Neurological: Denies any dizziness/tingling Vitals Vital Signs Recorded: 26Aug2022 11:21AM Heart Rate56 [id number] Zrfyssvtl12 Height5 ft 6 in Zzptki479 lb 2 oz BMI Ilhlrembrj36.78 kg/m2 BSA Calculated1.72 Tobacco Useb) No Falls Screening (Age 18+)b) One or more falls in the last year O2 [id number] Physical Exam General: AANDOx3 HEENT: NC/AT; EOMI; PERRLA, external ear is normal Neck: supple; no JVD Chest: CTAB; no wheezing CVS: S1S2 normal, no murmurs Abdomen: Soft, NT/ND, no organomegaly Extremities: no cl (more content not included)... Normal Process Relations Tobacco Screening.on 022 Fall risk assessment b) One or more fall s in the last year [facility] Work Phone: Tobacco use status [facility] b) No M [facility] Work Phone: Established Visit (Gastroent erology)on 08-12-2022 Established Visit (Gastroenterology) Diagnoses/Problems Assessed Irritable bowel syndrome (IBS) (564.1) (K58.9) Provider Impressions Discussed use of Bentyl. We will change to as needed take if she is going out to family meal or eating out of the home. Take only if have cramping. Continue probiotic regimen and fiber. Follow-up every 6 months or annually Chief Complaint FUV In office today for IBS. Patient states she is doing a lot better and had only 11 days of discomfort from last appointment which is an improvement. Patient is occasionally taking dicyclomine as needed. Patient has not taking IBGuard since last visit and has been taking the metamucil. History of Present IllnessKavitha is seen today in routine follow-up. Is doing well since beginning Bentyl and fiber. She has had only 10 episodes of discomfort in the last 60 days. Discomfort is still described as a burning in her left lower quadrant radiating to her right lower quadrant and associated with need to defecate. Pain usually persist several hours after bowel movement. She underwent good quality colonoscopy in 2017 with no abnormal findings. She is having no rectal bleeding. Cross-sectional imaging with CT of her pelvis performed with symptoms began in 2020 was unremarkable. Review of Systems Constitutional: no fever, no chills, not feeling tired and no recent weight loss. ENT: no lymphadenopathy. Cardiovascular: no shortness of breath and no chest pain. Respiratory: no cough. Gastrointestinal: as noted in HPI. Musculoskeletal: no joint swelling. Integumentary: no rashes, no skin lesions and was no jaundiced. All other systems have been reviewed and are negative for complaint. Active Problems Problems Acute lower UTI (599.0) (N39.0) Breast cancer screening by mammogram (V76.12) (Z12.31) Dry eye syndrome (375.15) (H04.129) Elevated glucose (790.29) (R73.09) Hematuria (599.70) (R31.9) Hyperlipemia, mixed (272.2) (E78.2) Irregular heartbeat (427.9) (I49.9) Irritable bowel syndrome (IBS) (564.1) (K58.9) Medicare annual wellness visit, subsequent (V70.0) (Z00.00) Menopause (627.2) (Z78.0) Osteoarthritis (715.90) (M19.90) Pulmonary hypertension (416.8) (I27.20) Rheumatoid arthritis (714.0) (M06.9) Vitamin B12 deficiency (266.2) (E53.8) Past Medical History Problems History of bone density study (V15.89) (Z92.89) 01/03/2019 History of mammogram (V1.89) (Z92.89) 01/03/2019 Surgical History Problems History of Colonoscopy 2018, Thomae, negative History of Dilation and curettage History of Eye surgery History of Hysterectomy History of Tubal ligation Family History Mother Family history of heart failure (V17.49) (Z82.49) Family history of hypertension (V17.49) (Z82.49) Father Family history of heart failure (V17.49) (Z82.49) Family history of hypertension (V17.49) (Z82.49) Daughter Family history of Brother Family history of acute myocardial infarction (V17.3) (Z82.49) Family history of coronary artery disease (V17.3) (Z82.49) Social History Problems Denied: History of Consumes alcohol occasionally Drinks coffee Never chewed tobacco (V49.89) (Z78.9) No illicit drug use Non-smoker (V49.89) (Z78.9) Patient has healthcare proxy and living will (V49.89) (Z78.9) Allergies Medication Vicodin TABS Hallucinations;; Recorded By: Kaykay Gonzales; 11/29/2019 11:12:59 AM Amoxil Rash; Recorded By: Kaykay Gonzales; 11/29/2019 11:12:59 AM Augmentin Rash; Recorded By: Kaykay Gonzales; 11/29/2019 11:12:59 AM diclofenac Recorded By: Kaykay Gonzales; 11/29/2019 11:12:59 AM Additional reactions - N+V - Nausea and vomiting tramadol Recorded By: Kaykay Gonzales; 11/29/2019 11:12:59 AM Additional reactions - N+V - Nausea and vomiting Current Meds Medication NameInstruction Aspirin 81 MG TABS [facility] Calcium 600 + D/Minerals 600-800 MG-UNIT Oral TabletTake 1 tablet twice daily Dicyclomine HCl - 10 MG Oral CapsuleTAKE 1 CAPSULE 4 TIMES DAILY Folic Acid 1 MG Oral TabletTAKE 1 TABLET TWICE DAILY. Meloxicam 15 MG Oral TabletTAKE TABLET PRN Methotrexate 2.5 MG Oral TabletTAKE 6 TABLET Weekly Metoprolol Tartrate 25 MG Oral TabletTAKE 1 TABLET TWICE DAILY. Multi-Vitamins TABS CÜR Oral CapsuleUSE DIRECTED. Plaquenil 200 MG Oral TabletTake 1 tablet twice daily predniSONE 10 MG Oral TabletTAKE 1 TABLET Daily PRN FLARES Vitamin B-6 100 MG Oral Tablet Vitamin E 400 UNIT Oral Tablet Vitals Vital Signs Recorded: 12Aug2022 10:07AM Szqtcekg991 Xcocwhjeg26 Height5 ft 6 in Bzrskc020 lb 6 oz BMI Himjsqndah47.82 kg/m2 BSA Calculated1.73 Physical Exam Constitutional General appearance: In no acute distress . Eyes Anicteric Sclerae . Pulmonary Auscultation of lungs: Clear. Cardiovascular Auscultation of heart: RRR without murmur. Examination of extremities for edema: Normal. Abdomen Soft, non-tender. Bowel sounds normal. No hepatomegaly or splenomegaly. Signatures Electronicall (more content not included)... Normal Process Relations Established Visit (Gastroent erology)on 05-13-2022 Established Visit (Gastroenterology) Diagnoses/Problems Assessed Irritable bowel syndrome (IBS) (564.1) (K58.9) Provider Impressions We discussed adding amitriptyline at a low dose at bedtime to help improve symptoms at this time she is quite happy with how things are going I advised her to add Metamucil 1 teaspoon advancing to 1 tablespoon over 6 weeks, I did inform her that she would likely have some transient increased gas but overall this should improve her symptoms. She will follow-up in 3 months time Chief Complaint FUV in office today for IBS. Patient states she has abdominal pain on occasion, patient is avoiding dairy as much as possible, patient hasn?t been taking th IBguard as much. Paitent is taking Bentyl and a probiotic which helps. Adult Risk Screening Initial Fall Risk Screening: KIM has not fallen in the last 6 months. KIM does not have a fear of falling. She does not need assistance with sitting, standing or walking. Does not need assistance walking in her home. She does not need assistance in an unfamiliar setting. The patient is not using an assistive device. Living Will. Living Will: Living will on file. Healthcare POA: Health care proxy on file. Tobacco Screening: Has not used tobacco in the past 6 months. The patient is comfortable filling out medical forms. History of Present Illness Patient seen today in follow-up for diarrhea. Since [...] a severely tortuous redundant left colon without polyps. Review of Systems Constitutional: no fever, no chills, not feeling tired and no recent weight loss. ENT: no lymphadenopathy. Cardiovascular: no shortness of breath and no chest pain. Respiratory: no cough. Gastrointestinal: as noted in HPI. Musculoskeletal: no joint swelling. Integumentary: no rashes, no skin lesions and was no jaundiced. All other systems have been reviewed and are negative for complaint. Active Problems Problems Acute lower UTI (599.0) (N39.0) Breast cancer screening by mammogram (V76.12) (Z12.31) Dry eye syndrome (375.15) (H04.129) Elevated glucose (790.29) (R73.09) Hematuria (599.70) (R31.9) Hyperlipemia, mixed (272.2) (E78.2) Irregular heartbeat (427.9) (I49.9) Irritable bowel syndrome (IBS) (564.1) (K58.9) Medicare annual wellness visit, subsequent (V70.0) (Z00.00) Menopause (627.2) (Z78.0) Osteoarthritis (715.90) (M19.90) Pulmonary hypertension (416.8) (I27.20) Rheumatoid arthritis (714.0) (M06.9) Vitamin B12 deficiency (266.2) (E53.8) Past Medical History Problems History of bone density study (V15.) (Z92.89) 01/03/2019 History of mammogram (V15.89) (Z92.89) 01/03/2019 Surgical History Problems History of Colonoscopy 2018, Thomae, negative History of Dilation and curettage History of Eye surgery History of Hysterectomy History of Tubal ligation Family History Mother Family history of heart failure (V17.49) (Z82.49) Family history of hypertension (V17.49) (Z82.49) Father Family history of heart failure (V17.49) (Z82.49) Family history of hypertension (V17.49) (Z82.49) Daughter Family history of Brother Family history of acute myocardial infarction (V17.3) (Z82.49) Family history of coronary artery disease (V17.3) (Z82.49) Social History Problems Denied: History of Consumes alcohol occasionally Drinks coffee Never chewed tobacco (V49.89) (Z78.9) No illicit drug use Non-smoker (V49.89) (Z78.9) Patient has healthcare proxy and living will (V49.89) (Z78.9) Allergies Medication Vicodin TABS Hallucinations;; Recorded By: Kaykay Gonzales; 11/29/2019 11:12:59 AM Amoxil Rash; Recorded By: Kaykay Gonzales; 11/29/2019 11:12:59 AM Augmentin Rash; Recorded By: Kaykay Gonzales; 11/29/2019 11:12:59 AM diclofenac Recorded By: Kaykay Gonzales; 11/29/2019 11:12:59 AM Additional reactions - N+V - Nausea and vomiting tramadol Recorded By: Kaykay Gonzales; 11/29/2019 11:12:59 AM Additional reactions - N+V - Nausea and vomiting Current Meds Medication NameInstruction Aspirin 81 MG TABS CVS Calcium 600 + D/Minerals 600-800 MG-UNIT Oral TabletTake 1 tablet twice daily Dicyclomine HCl - 10 MG Oral CapsuleTAKE 1 CAPSULE 4 TIMES DAILY Folic Acid 1 MG Oral TabletTAKE 1 TABLET TWICE DAILY. Meloxicam 15 MG Oral TabletTAKE TABLET PRN Methotrexate 2.5 MG Oral TabletTAKE 6 TABLET Weekly Metoprolol Tartrate 25 MG Oral TabletTAKE 1 TABLET TWICE DAILY. Multi-Vitamins TABS BlaBlaCar Colon Health Oral CapsuleUSE DIRECTED. Plaquenil 200 MG Oral TabletTake 1 tablet twice daily predniSONE 10 MG Oral (more content not included)... Normal [facility] Mamm - Screening Mammogram w / Tomosynthesison 02-17-2022 MG Breast Screening Normal [facility] Work Phone: Initial Visit (Gastroenterangelika wallace)on 02-11-2022 Initial Visit (Gastroenterology) Diagnoses/Problems Assessed Irritable bowel syndrome (IBS) (564.1) (K58.9) Provider Impressions Symptoms most compatible with GERD bowel syndrome given her normal colonoscopy 4 years ago. Recommend she go dairy free begin high-fiber diet May continue IBgard. Follow-up in 3 months Chief Complaint NPV in office today for diarrhea, abdominal pain. 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 Pt states that the pain was after eating in the middle of the night. Pt is taking IBgard peppermint oil. Neighbor recently passed and is feeling a lot better. Adult Risk ScreeningAdult Risk Screening_: Initial Fall Risk Screening: KIM has not fallen in the last 6 months. KIM does not have a fear of falling. She does not need assistance with sitting, standing or walking. Does not need assistance walking in her home. She does not need assistance in an unfamiliar setting. The patient is not using an assistive device. Living Will. Living Will: Living will on file. Healthcare POA: Health care proxy on file. Tobacco Screening: Has not used tobacco in the past 6 months. Review of Systems Constitutional: no fever, no chills, not feeling tired and no recent weight loss. ENT: no lymphadenopathy. Cardiovascular: no shortness of breath and no chest pain. Respiratory: no cough. Gastrointestinal: as noted in HPI. Musculoskeletal: no joint swelling. Integumentary: no rashes, no skin lesions and was no jaundiced. All other systems have been reviewed and are negative for complaint. Active Problems Problems Acute lower UTI (599.0) (N39.0) Breast cancer screening by mammogram (V76.12) (Z12.31) Dry eye syndrome (375.15) (H04.129) Elevated glucose (790.29) (R73.09) Hematuria (599.70) (R31.9) Hyperlipemia, mixed (272.2) (E78.2) Irregular heartbeat (427.9) (I49.9) Irritable bowel syndrome (IBS) (564.1) (K58.9) Medicare annual wellness visit, subsequent (V70.0) (Z00.00) Menopause (627.2) (Z78.0) Osteoarthritis (715.90) (M19.90) Pulmonary hypertension (416.8) (I27.20) Rheumatoid arthritis (714.0) (M06.9) Vitamin B12 deficiency (266.2) (E53.8) Past Medical History Problems History of bone density study (V15.89) (Z92.89) 01/03/2019 History of mammogram (V15.89) (Z92.89) 01/03/2019 Surgical History Problems History of Colonoscopy 2018, Thomae, negative History of Dilation and curettage History of Eye surgery History of Hysterectomy History of Tubal ligation Family History Mother Family history of heart failure (V17.49) (Z82.49) Family history of hypertension (V17.49) (Z82.49) Father Family history of heart failure (V17.49) (Z82.49) Family history of hypertension (V17.49) (Z82.49) Daughter Family history of Brother Family history of acute myocardial infarction (V17.3) (Z82.49) Family history of coronary artery disease (V17.3) (Z82.49) Social History Problems Denied: History of Consumes alcohol occasionally Drinks coffee Never chewed tobacco (V49.89) (Z78.9) No illicit drug use Non-smoker (V49.89) (Z78.9) Patient has healthcare proxy and living will (V49.89) (Z78.9) Allergies Medication Vicodin TABS Hallucinations;; Recorded By: Kaykay Gonzales; 11/29/2019 11:12:59 AM Amoxil Rash; Recorded By: Kaykay Gonzales; 11/29/2019 11:12:59 AM Augmentin Rash; Recorded By: Kaykay Gonzales; 11/29/2019 11:12:59 AM diclofenac Recorded By: Kaykay Gonzales; 11/29/2019 11:12:59 AM Additional reactions - N+V - Nausea and vomiting tramadol Recorded By: Kaykay Gonzales; 11/29/2019 11:12:59 AM Additional reactions - N+V - Nausea and vomiting Current Meds Medication NameInstruction Aspirin 81 MG TABS CVS Calcium 600 + D/Minerals 600-800 MG-UNIT Oral TabletTake 1 tablet twice daily Dicyclomine HCl - 10 MG Oral CapsuleTAKE 1 CAPSULE 4 TIMES DAILY Folic Acid 1 MG Oral TabletTAKE 1 TABLET TWICE DAILY. IBgard CPCR Meloxicam 15 MG Oral TabletTAKE TABLET PRN Methotrexate 2.5 MG Oral TabletTAKE 6 TABLET Weekly Metoprolol Tartrate 25 MG Oral TabletTAKE 1 TABLET TWICE DAILY. Multi-Vitamins TABS BlaBlaCar Colon Health Oral CapsuleUSE DIRECTED. Plaquenil 200 MG Oral TabletTake 1 tablet twice daily predniSONE 10 MG Oral TabletTAKE 1 TABLET Daily PRN FLARES Vitamin B-6 100 MG Oral Tablet Vitamin E 400 UNIT Oral Tablet Vitals Vital Signs Recorded: [id number] 02:14PM Lbylwkrt668 Vtequwpeh59 Height5 ft 6 in Yjahka881 lb BMI Dyncaltpbj18.24 kg/m2 BSA Calculated1.74 Physical Exam Kavitha is seen today acutely. She underwent colonoscopy 4 years ago. Colonoscopy did reveal tortuous but normal colon. Recent developed left lower quadrant pain defined as a cramping associate with stress discomfort improved with defecation. Began taking IBgard, peppermint tablets and this has helped. She has noticed that certain foods do trigger symptoms especially if she overeats or has dairy. She denies any rectal bleeding. Recent labs from [facility] (more content not included)... Normal [facility] Medicare Annual Wellness Vis iton 12-09-2021 Medicare Annual Wellness Visit *Chief Complaint WELLNES REV LABS History of Present Illness The patient is being seen for the subsequent annual wellness visit. Past Medical, Surgical and Family History: reviewed and updated in chart. Medications and Supplements: Review of all medications by a prescribing practitioner or clinical pharmacist (such as prescriptions, OTCs, herbal therapies and supplements) documented in the medical record. No, the patient is not using opioids. Patient Self Assessment of Health Status: good. Tobacco use: Non-User Alcohol use: Non-User Illicit drug use: Non-User Current diet: well balanced diet. Exercise Frequency: regularly. Depression/Suicide Screening: . During the past 2 weeks, the patient has not felt down, depressed or hopeless. During the past 2 weeks, the patient has not felt little interest or pleasure in doing things. Hearing Impairment: Patient has significant hearing impairment, bilaterally, She uses a hearing aid. Cognitive Impairment: No cognitive impairment observed. Bathing: performs independently. Dressing: performs independently. Walking: performs independently. Managing Finances: performs independently. Shopping: performs independently. Managing Medications: performs independently. Housework / Basic Home Maintenance: performs independently. Falls Risk Screening:. KIM has not fallen in the last 6 months. Home safety risk factors: none. Advance directives:. Patient has living will. Placed in chart. Patient's End of Life Decisions: End of life decisions were reviewed with the patient. I agree to follow the patient's decisions. No headache, chest pain, shortness of breath, dizziness, lightheadedness, or edema Sees [employer] on a regular basis Seen Cardiology, started on metoprolol for palpitations and pulmonary hypertension was in ER this past fall in , had CT (negative evaluation), pain in abdomen and chest lasted 4 hours and resolved pain more in evening, better in AM, started again in the past week, had stopped taking dicyclomine had scope in 2017 (normal) had COVID in July BM good, eating fiber, no constipation, soft stools dicyclomine helps at times arthritis stable pain Review of Systems Constitutional: NAD, no fevers, chills, sweats or fatigue Rep: no cough or shortness of breath Cardio: no chest pain, edema, or palpitations GI: no nausea, vomiting, diarrhea, constipation, or heartburn : normal urine flow and stream, no nocturia or dysuria MS: no joint pain or significant limits of function Skin: no visible rashes or suspicious lesions Neuro: alert and oriented X4, no numbness, tingling or issues with balance Psych: no anxiety or depression *Active Problems Acute lower UTI (599.0) (N39.0) Breast cancer screening by mammogram (V76.12) (Z12.31) Dry eye syndrome (375.15) (H04.129) Elevated glucose (790.29) (R73.09) Hematuria (599.70) (R31.9) Hyperlipemia, mixed (272.2) (E78.2) Irregular heartbeat (427.9) (I49.9) Irritable bowel syndrome (IBS) (564.1) (K58.9) Medicare annual wellness visit, subsequent (V70.0) (Z00.00) Menopause (627.2) (Z78.0) Osteoarthritis (715.90) (M19.90) Pulmonary hypertension (416.8) (I27.20) Rheumatoid arthritis (714.0) (M06.9) Vitamin B12 deficiency (266.2) (E53.8) Past Medical History History of bone density study (V15.89) (Z92.89) 01/03/2019 History of mammogram (V15.89) (Z92.89) 01/03/2019 Surgical History History of Colonoscopy 2018, Thomae, negative History of Dilation and curettage History of Eye surgery History of Hysterectomy History of Tubal ligation Family History Family history of heart failure (V17.49) (Z82.49) Family history of hypertension (V17.49) (Z82.49) Family history of heart failure (V17.49) (Z82.49) Family history of hypertension (V17.49) (Z82.49) Family history of Family history of acute myocardial infarction (V17.3) (Z82.49) Family history of coronary artery disease (V17.3) (Z82.49) Social History Denied: History of Consumes alcohol occasionally Drinks coffee Never chewed tobacco (V49.89) (Z78.9) No illicit drug use Non-smoker (V49.89) (Z78.9) Patient has healthcare proxy and living will (V49.89) (Z78.9) *Allergies Vicodin TABS Hallucinations;; Recorded By: Kaykay Gonzales; 11/29/2019 11:12:59 AM Amoxil Rash; Recorded By: Kaykay Gonzales; 11/29/2019 11:12:59 AM Augmentin Rash; Recorded By: Kaykay Gonzales; 11/29/2019 11:12:59 AM diclofenac Recorded By: Kaykay Gonzales; 11/29/2019 11:12:59 AM Additional reactions - N+V - Nausea and vomiting tramadol Recorded By: Kaykay Gonzales; 11/29/2019 11:12:59 AM Additional reactions - N+V - Nausea and vomiting *Current Meds Medication NameInstruction Aspirin 81 MG TABS CVS Calcium 600 + D/Minerals 600-800 MG-UNIT Oral TabletTake 1 tablet twice daily Dicyclomine HCl - 10 MG Oral CapsuleTAKE 1 CAPSULE 4 TIMES DAILY Folic Acid 1 MG Oral TabletTAKE 1 TABLET TWICE DAILY. Me (more content not included)... Normal [facility] Tobacco Screening.on 022 Adult depression screening assessment Yes -[employer] [facility] Work Phone: Adult depression screening assessment No -[facility] Work Phone: Fall risk assessment a) No falls within the last year -[facility] Work Phone: Tobacco use status [facility] b) No M -[facility] Work Phone: CORONAVIRUS PCR - [facility] 08-18-2021 SARS-CoV-2 (COVID-19) RNA KATE+probe Ql (Unsp spec) Positive Critically abnormal NORMAL: NEGATIVE [facility] Comment on above: Result Comment: { CA LLED TO infection control { READ BACK BY Performed By: #### [id number] #### [facility],[address] [place] [address] SEND TO IC? YES Normal [facility] Comment on above: Result Comment: RESU LTS FAXED TO INFECTION CONTROL. SARS-CoV-2 THIS TEST IS BEING USED UNDER THE FDA EUA PROCEDURE. THIS ASSAY HAS BEEN VALIDATED IN THE [facility] FOR USE WITH NASOPHARYNGEAL SPECIMENS IN [facility]. INTERPRETIVE DATA LABORATORY TEST RESULTS SHOULD ALWAYS BE CONSIDERED IN THE CONTEXT OF CLINICAL OBSERVATIONS AND EPIDEMIOLOGICAL DATA IN MAKING FINAL DIAGNOSIS AND PATIENT MANAGEMENT DECISIONS. PATIENT MANAGEMENT SHOULD FOLLOW CURRENT CDC GUIDELINES. A POSITIVE TEST RESULT FOR COVID-19 INDICATES THAT RNA FROM SARS-CoV-2 WAS DETECTED, AND THE PATIENT IS INFECTED WITH THE VIRUS AND PRESUMED TO BE CONTAGIOUS. A NEGATIVE TEST RESULT FOR THIS TEST MEANS THAT SARS-CoV-2 RNA WAS NOT PRESENT IN THE SPECIMEN ABOVE THE LIMIT OF DETECTION. HOWEVER, A NEGATVIE RESULT DOES NOT RULE OUT COVID-19 AND SHOULD NOT BE USED THE SOLE BASIS FOR TREATMENT OR PATIENT MANAGEMENT DECISIONS. A NEGATIVE RESULT DOES NOT EXCLUDE THE POSSIBILITY OF COVID-19. WHEN DIAGNOSTIC TESTING IS NEGATIVE, THE POSSIBLILTY OF A FALSE NEGATIVE RESULT SHOULD BE CONSIDERED IN THE CONTEXT OF A PATIENT'S RECENT EXPOSURES AND THE PRESENCE OF CLINICAL SIGNS AND SYMPTOMS CONSISTENT WITH COVID-19. THE POSSIBILITY OF A FALSE NEGATIVE RESULT SHOULD ESPECIALLY BE CONSIDERED IF THE PATIENT'S RECENT EXPOSURES OR CLINICAL PRESENTATION INDICATE THAT COVID-19 IS LIKELY, AND DIAGNOSTIC TESTS FOR OTHER CAUSES OF ILLNESS (e.g., OTHER RESPIRATORY ILLNESS) ARE NEGATIVE. IF COVID-19 IS STILL SUSPECTED BASED ON EXPOSURE HISTORY TOGETHER WITH OTHER CLINICAL FINDINGS, RE-TESTED SHOULD BE CONSIDERED BY HEALTHCARE PROVIDERS IN CONSULTATION WITH PUBLIC HEALTH AUTHORITIES. Performed By: #### [id number] #### [facility],[address] [place] [address] Mamm - Screening Mammogram w / Tomosynthesison 02-10-2021 MG Breast Screening Normal [facility] Work Phone: Xray Bone Density, Dexa 1 or More Siteson 02-10-2021 Xray Bone Density, Dexa 1 or More Sites Normal [facility] [employer] Work Phone: Radiologyon 01-27-2021 US.doppler Carotid [facility] Work Phone: Cult, Urineon 12-14-2019 Bacteria identified Cx Nom (U) PATIENT: KIM ROCHA LOCATION: [facility]#: [id number] : 45 AGE: SEX: F ORDERED BY: WICHO DESAI: URINE COLLECTED: 12/14/19 10:22ANTIBIOTICS AT [facility].: RECEIVED : 12/14/19 23:15SITE: Clean Catch/Voided R E S U L T S URINE CULTURE,BACTERIAL FINAL 12/16/19 08:08 NO SIGNIFICANT GROWTH. [facility] [facility] Work Phone: Comment on above: Ordering Provider: Romina DESAI [id number] Complete Blood Count + Diffe rentialon 12-05-2019 Basophils (Bld) [#/Vol] 0.00 {x10E9/L} See Gianfranco nunes [employer] [facility] Work Phone: Comment on above: Reference Range: 0.0 0 - 0.10 Basophils/100 WBC (Bld) 1.1 % 0.0 - 2.0 M [employer] [facility] Work Phone: [phone] Eosinophils (Bld) [#/Vol] 0.10 {x10E9/L} See Below [facility] Work Phone: [phone] Comment on above: Reference Range: 0.0 0 - 0.40 Eosinophils/100 WBC (Bld) 3.6 % 0.0 - 6.0 [facility] Work Phone: [phone] Erythrocyte distribution width (RBC) [Ratio] 15.0 % above high threshold See Below [facility] Work Phone: [phone] Comment on above: Reference Range: 11. 5 - 14.5 Hematocrit (Bld) [Volume fraction] 39.4 % See Below [facility] Work Phone: [phone] Comment on above: Reference Range: 36. 0 - 46.0 Hemoglobin (Bld) [Mass/Vol] 13.3 g/dL See Below [facility] Work Phone: [phone] Comment on above: Reference Range: 12. 0 - 16.0 Lymphocytes (Bld) [#/Vol] 1.00 {x10E9/L} See Below [facility] Work Phone: [phone] Comment on above: Reference Range: 0.8 0 - 3.00 Lymphocytes/100 WBC (Bld) 26.3 % See Below [facility] Work Phone: [phone] Comment on above: Reference Range: 13. 0 - 44.0 MCHC (RBC) [Mass/Vol] 33.8 g/dL See Below [facility] [employer] [facility] Work Phone: [phone] Comment on above: Reference Range: 32. 0 - 36.0 MCV (RBC) [Entitic vol] 96 fL 80 - 100 M [facility] Work Phone: [phone] Monocytes (Bld) [#/Vol] 0.30 {x10E9/L} See Gianfranco nunes [facility] Work Phone: [phone] Comment on above: Reference Range: 0.0 5 - 0.80 Monocytes/100 WBC (Bld) 8.5 % 2.0 - 10.0 M -[facility] Work Phone: [phone] Neutrophils (Bld) [#/Vol] 2.40 {x10E9/L} See Below [facility] Work Phone: [phone] Comment on above: Reference Range: 1.6 0 - 5.50 Percent differential counts (%) should be interpreted in the context of the absolute cell counts (cells/L). Neutrophils/100 WBC (Bld) 60.5 % See Below [facility] Work Phone: [phone] Comment on above: Reference Range: 40. 0 - 80.0 Platelets (Bld) [#/Vol] 205 {x10E9/L} 150 - 450 [facility] Work Phone: [phone] RBC (Bld) [#/Vol] 4.12 {x10E12/L} See Below [facility] Work Phone: [phone] Comment on above: Reference Range: 4.0 0 - 5.20 WBC (Bld) [#/Vol] 3.9 {x10E9/L} below low threshold 4.4 - 11.3 [facility] Work Phone: [phone] WBC (Bld) [#/Vol] 0.1 {/100_WBC} [facility] Work Phone: [phone] Hemoglobin A1Con 12-05-2019 HbA1c (Bld) [Mass fraction] 114 {MG/DL} [facility] Work Phone: [phone] HbA1c (Bld) [Mass fraction] 5.6 % [facility] Work Phone: [phone] Comment on above: Diagnosis of Diabete s-Adults Non-Diabetic: < or = 5.6% Increased risk for developing diabetes: 5.7-6.4% Diagnostic of diabetes: > or = 6.5%. Monitoring of Diabetes Age (y) Therapeutic Goal (%) Adults: >18 <7.0 Pediatrics: 13-18 <7.5 7-12 <8.0 0- 6 7.5-8.5 [place] [employer]. Diabetes Care 33(S1), Sep 2009. Metabolic Panelon 12-05-2019 ALP [Catalytic activity/Vol] 34 U/L 33 - 136 [facility] Work Phone: Anion gap [Moles/Vol] 13 mmol/L 10 - 20 [facility] Work Phone: Bilirubin [Mass/Vol] 0.5 mg/dL 0.0 - 1.2 - [facility] Work Phone: Calcium [Mass/Vol] 9.9 mg/dL 8.6 - 10.3 [employer] [facility] Work Phone: Chloride [Moles/Vol] 103 mmol/L 98 - 107 - [employer] [facility] Work Phone: CO2 [Moles/Vol] 27 mmol/L 21 - 32 [employer] [facility] Work Phone: Creatinine [Mass/Vol] 0.85 mg/dL See Below - [facility] Work Phone: Comment on above: Reference Range: 0.5 0 - 1.05 Glucose [Mass/Vol] 88 mg/dL 74 - 99 [facility] Work Phone: Potassium [Moles/Vol] 4.3 mmol/L 3.5 - 5.3 [facility] Work Phone: Protein [Mass/Vol] 7.3 g/dL 6.4 - 8.2 [facility] [facility] Work Phone: Sodium [Moles/Vol] 139 mmol/L 136 - 145 [facility] Work Phone: Urea nitrogen [Mass/Vol] 20 mg/dL 6 - 23 [facility] Work Phone: Otheron 12-05-2019 Albumin BCP dye [Mass/Vol] 4.3 g/dL 3.4 - 5.0 -[facility] Work Phone: ALT With P-5'-P [Catalytic activity/Vol] 32 U/L 7 - 45 [employer] [facility] Work Phone: Comment on above: Patients treated wit h Sulfasalazine may generate falsely decreased results for ALT. AST With P-5'-P [Catalytic activity/Vol] 34 U/L 9 - 39 [facility] Work Phone: >60 >60 [facility] Work Phone: Comment on above: CALCULATIONS OF CHRISTIN MATED GFR ARE PERFORMED USING THE MDRD STUDY EQUATION FOR THE IDMS-TRACEABLE CREATININE METHODS. CLIN CHEM 2007;53:766-72 TSH - Thyroid Stimulating Ho rmone, Serumon 12-05-2019 TSH Qn 2.81 {mIU/L} See Below -[employer] [facility] Work Phone: Comment on above: Reference Range: 0.4 4 - 3.98 Note new pediatric reference range as of 11/29/2019. TSH testing is performed using different testing methodology at [facility] than at other [facility]. Direct result comparisons should only be made within the same method. Vitamin B12, Serumon 020 Cobalamin (Vitamin B12) [Mass/Vol] 532 pg/mL 211 - 911 -[facility] Work Phone: MA Mamm Screen w/CAD if perf ormed bilaton 01-04-2019 MA Mamm Screen w/CAD if performed bilat Exam Date/Time: 01/03/2019 11:05 EDT Reason for Exam: SCREENING OSTEOPENIA;Screening Report STUDY: Digital mammography screening; 01/03/2019 11:05 am ACCESSION NUMBER(S): [id number] ORDERING CLINICIAN: Akanksha Millan INDICATION: Screening. COMPARISON: Comparison is made to prior digital mammograms dated 12/28/2017 and 12/24/2016 FINDINGS: CC and MLO 2D digital mammographic images of the bilateral breasts were obtained. There are areas of scattered fibroglandular tissue. No discrete mass or focal asymmetry is identified. No suspicious microcalcifications or foci of architectural distortion are seen. There has been no significant change. This study was interpreted with CAD. IMPRESSION: No mammographic evidence of malignancy. BI-RADS CATEGORY: Category: 1 - Negative. Recommendation: Normal Interval Follow-up, Over Age 40. Recall Interval: 12 Months. Breast Density: Scattered Fibroglandular Density. FINAL REPORT Dictated: 01/04/2019 8:46 am Stephon Rendon MD Signed (Electronic Signature): 01/04/2019 8:46 am Signed by: Stephon Rendon MD Technologist: MGW Assessment: BI-RADS Category 1-Negative Recommendation: Normal interval follow-up Normal [facility] BD Bone Density DEXAon 01-03 BD Bone Density DEXA Exam Date/Time: 01/03/2019 10:51 EDT Reason for Exam: SCREENING OSTEOPENIA;Osteopenia Report STUDY: BD Bone Density DEXA; 01/03/2019 10:51 am INDICATION: Osteopenia. Evaluate for osteopenia/osteoporos is, ACCESSION NUMBER(S): [id number] ORDERING CLINICIAN: Akanksha Millan FINDINGS: Standard measurements were obtained utilizing an [employer] X-ray Absorptiometry bone densitometer. Data obtained includes planar bone density measurements over the left hip and lumbar spine. Comparison of measured data and standardized mean data for a young adult population (when peak bone mass occurs) results in a T score. This represents the number of standard deviations above or below the mean of a young adult population. Comparison of measured data to standards from an age-adjusted population similarly yields a Z score. Left femoral neck Bone density: 0.778 g/cm2 T score: -0.6 Z Score: 1.4 Lumbar Spine (L1-4) Bone density: 1.122 g/cm2 T Score: 0.7 Z Score: 3.0 World Health Organization (WHO) criteria defines normal bone density as that which is less than 1 standard deviation below the mean of a young adult population. Osteopenia is defined as a measured bone density that is between 1 and 2.5 standard deviations below the mean of a young adult population. Osteoporosis is defined as a measured bone density that is greater than or equal to 2.5 standard deviations below the mean of a young adult population. IMPRESSION: According to World Health Organization criteria, bone mineral density of the left femoral neck and lumbar spine is within the limits of normal. Exam Date/Time: 01/03/2019 10:51 EDT Report There has been no interval decrease in left total hip or lumbar spine bone mineral density measurements when compared to the prior study of 12/24/2016. FINAL REPORT Dictated: 01/03/2019 11:27 am Stephon Rendon MD Signed (Electronic Signature): 01/03/2019 11:27 am Signed by: Stephon Rendon MD Technologist: NARINDER Normal [facility] TSHon 11-29-2018 Thyrotropin Qn 3.17 mcIU/mL Normal 0.30-5.60 [facility] Comment on above: Performed By: #### [id number] #### [employer] [address] [place] [address] Vit B12on 11-29-2018 Cobalamin (Vitamin B12) mass conc 646 pg/mL Normal 180-914 [facility] Comment on above: Performed By: #### [id number] #### [employer] [address] [place] [address] C Urineon 11-17-2018 C Urine Final Report: Rare Mixed skin contaminants Normal [facility] Comment on above: Performed By: #### [id number] #### [facility] Microbiology Subsection [address] [place] [address] POC Urinalysis Dip POCon POC Bilirubin Negative Normal Negative [facility] Comment on above: Performed By: #### C [id number] #### CRYS POC Subsection [address] [place] [address] POC Blood Moderate 2+ Abnormal Negative [facility] Comment on above: Performed By: #### C [id number] #### CRYS POC Subsection [address] [place] [address] POC Clarity CLEAR Normal CLEAR [facility] Comment on above: Performed By: #### C [id number] #### CRYS POC Subsection [address] [place] [address] POC Color [place] Abnormal Yellow [facility] Comment on above: Performed By: #### C [id number] #### CRYS POC Subsection [address] [place] [address] POC Glucose 250mg/dl 1+ Abnormal Negative [facility] Comment on above: Performed By: #### C [id number] #### CRYS POC Subsection [address] [place] [address] POC Ketone 5mg/dl Trace Abnormal Negative [facility] Comment on above: Performed By: #### C [id number] #### CRYS POC Subsection [address] [place] [address] POC Leukocyte Large 3+ Abnormal Negative [facility] Comment on above: Performed By: #### C [id number] #### CRYS POC Subsection [address] [place] [address] POC Nitrite Positive Abnormal Negative [facility] Comment on above: Performed By: #### C [id number] #### CRYS POC Subsection [address] [place] [address] POC pH 5.0 mg/dL Normal 5.0-8.0 [facility] Comment on above: Performed By: #### C [id number] #### CRYS POC Subsection [address] [place] [address] POC Specific [place] 1.020 mg/dL Normal 1.005-1.035 [facility] Comment on above: Performed By: #### C [id number] #### CRYS POC Subsection [address] [place] [address] POC Urobilinogen 4.0 EU/dL High 0.2-1.0 [facility] Comment on above: Performed By: #### C [id number] #### CRYS POC Subsection [address] [place] [address] Protein mass conc (U) 100mg/dl 2+ Abnormal Negative [facility] Comment on above: Performed By: #### C [id number] #### CRYS POC Subsection [address] [place] [address] C Urineon 11-05-2018 C Urine Final Report: >100,000 cfu/ml Escherichia coli ORGANISM: EC SUSCEPTIBILITY RESULTS Antibiotic MURRAY Dilutn MURRAY Interp ORGANISM: EC Amox/Cla : <=8/4 S Amp : >16 R Amp/Sul : 16/8 I Cefaz : <=8 S Cefo : <=2 S Cipro : <=1 S Gent : >8 R Levo : <=2 S Jessie : <=1 S Nitro : <=32 S Pip/Berlin : <=16 S Tetra : <=4 S Tobra : >8 R SXT : <=2/38 S Normal [facility] Comment on above: Performed By: #### 2 [id number] #### CR[facility] Microbiology Subsection [address] [place] [address] POC Urinalysis Dip POCon POC Bilirubin Negative Normal Negative [facility] Comment on above: Performed By: #### C [id number] #### CRYS POC Subsection [address] [place] [address] POC Blood Large 3+ Abnormal Negative [facility] Comment on above: Performed By: #### C [id number] #### CRYS POC Subsection [address] [place] [address] POC Clarity CLEAR Normal CLEAR [facility] Comment on above: Performed By: #### C [id number] #### CRYS POC Subsection [address] [place] [address] POC Color Yellow Normal Yellow [facility] Comment on above: Performed By: #### C [id number] #### CRYS POC Subsection [address] [place] [address] POC Glucose Negative Normal Negative [facility] Comment on above: Performed By: #### C [id number] #### CRYS POC Subsection [address] [place] [address] POC Ketone Negative Normal Negative [facility] Comment on above: Performed By: #### C [id number] #### CRYS POC Subsection [address] [place] [address] POC Leukocyte Small 1+ Abnormal Negative [facility] Comment on above: Performed By: #### C [id number] #### CRYS POC Subsection [address] [place] [address] POC Nitrite Negative Normal Negative [facility] Comment on above: Performed By: #### C [id number] #### CRYS POC Subsection [address] [place] [id number] POC pH 5.5 mg/dL Normal 5.0-8.0 [facility] Comment on above: Performed By: #### C [id number] #### CRYS POC Subsection [address] [place] [address] POC Specific [place] 1.015 mg/dL Normal 1.005-1.035 [facility] Comment on above: Performed By: #### C [id number] #### CRYS POC Subsection [address] [place] [address] POC Urobilinogen 0.2 EU/dL Normal 0.2-1.0 [facility] Comment on above: Performed By: #### C [id number] #### CRYS POC Subsection [address] [place] [address] Protein mass conc (U) Negative Normal Negative [facility] Comment on above: Performed By: #### C [id number] #### CRYS POC Subsection [address] [place] [address] CT Abdomen/Pelvis w/o Contra ston 07-05-2018 CT Abdomen/Pelvis w/o Contrast Exam Date/Time: 07/05/2018 11:15 EDT Reason for Exam: 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 COMPARISON: None. ACCESSION NUMBER(S): [id number] ORDERING CLINICIAN: Akanksha Millan TECHNIQUE: Contiguous axial images were obtained at 3mm slice thickness through the abdomen and pelvis following oral and without intravenous contrast administration. Coronal and sagittal reconstructions at 3 mm slice thickness were performed. Intravenous contrast was not given per the referring physician's request. FINDINGS: The study is limited by the lack of intravenous contrast. LOWER CHEST: Evaluation of the visualized lung bases is grossly unremarkable. The heart is within normal limits for size. ABDOMEN: LIVER: A 6 mm hypodensity is seen in the posterior aspect of segment 6 of the liver, too small to accurately characterize. BILE DUCTS: No definite intra or extrahepatic biliary dilatation is identified. GALLBLADDER: The gallbladder is nondilated. No definite calcified gallstones are seen. PANCREAS: The pancreas is within normal limits for appearance, without evidence of focal masses. SPLEEN: The spleen is within normal limits for size. No focal splenic mass is seen. ADRENAL GLANDS: Exam Date/Time: 07/05/2018 11:15 EDT Report No definite adrenal nodules or masses are seen bilaterally. KIDNEYS AND URETERS: There is no hydronephrosis, hydroureter or renal/ ureteral calculus identified bilaterally. No definite focal renal mass is seen, though evaluation is severely limited by the lack of intravenous contrast.. PELVIS: BLADDER: The urinary bladder is grossly unremarkable for CT appearance. REPRODUCTIVE ORGANS: The patient is status post hysterectomy. BOWEL: The colon and small bowel are within normal limits for course, caliber and appearance, without evidence of wall thickening or obstruction. The appendix is decompressed. No CT evidence of acute diverticulitis or appendicitis is seen. VESSELS: Scattered atherosclerotic calcifications are seen throughout the infrarenal abdominal aorta and iliac arteries. The abdominal aorta is within normal limits for course, caliber and appearance, without evidence of aneurysm. PERITONEUM/RETROPERIT ONEUM/LYMPH NODES: There is no free intraperitoneal air or free fluid identified. No gross mesenteric or retroperitoneal lymphadenopathy is identified. BONE AND SOFT TISSUE: There is no evidence of acute fracture identified. No evidence of abdominal wall mass or hernia is identified. IMPRESSION: 1. No hydronephrosis, hydroureter or renal/ureteral calculus identified. 2. No evidence of bowel obstruction, free intraperitoneal air or abnormal intra-abdominal fluid collection. FINAL REPORT Dictated: 07/05/2018 1:14 pm Stephon Rendon MD Signed (Electronic Signature): 07/05/2018 1:14 pm Signed by: Stephon Rendon MD Technologist: CHAR [facility] CNOVon 09-23-2017 CNOV Office Visit ([facility]) ----KIM ROCHA ([id number]) 1945 FDate Time Provider Tksvukewpe29/29/17 10:30 AM LILLIAN LAWRENCE (LAKESHIA) [facility] During your visit today, we recorded the following information about you: Temperature Pulse Respiration Blood pressure 99.9 degrees 94/minute 16/minute 120/80 Weight 70.5 kgLillian Lawrence CNP 09/23/2017 6:15 PM SignedHPI Patient is a 72 year old female here today for a 3 week history of sorethroat. States she now has a cough and felt that she had chills. Has had nasalcongestion along with sore throat. States she has increased sinus pressure.States she has gargled with vinegar water. Nothing makes it better or worse. Noother concerns at this time .Review of SystemsConstitutional : Positive for chills and malaise/fatigue. Negative for fever.HENT: Positive for congestion, ear pain and sore throat.Respiratory: Positive for cough. Negative for sputum production, shortness ofbreath and wheezing.Cardiovascul ar: Negative.Gastrointest inal: Negative for nausea and vomiting.Musculoskele gudelia: Negative for myalgias.Neurological : Positive for headaches (sinus pressure).Endo/Heme/A llergies: Negative for environmental allergies.All other systems reviewed and are negative.No past medical history on file.No past surgical history on file.ALLERGIES Amoxicil-Clarithromy- Lansopraz; Augmentin [Amoxicillin-PotClavu lanate]; Hydrocodone-Acetamino phen; Voltaren [Diclofenac Sodium]MEDICATIONSasp irin, enteric coated (ASPIRIN, ENTERIC COATED) 81 mg EC tablet Take 81 mg bymouth once daily.VITAMIN E, DL,TOCOPHERYL ACET, (VITAMIN E, DL, ACETATE,) 100 unit capsule [id number] Units by mouth once daily.pyridoxine, vitamin B6, (VITAMIN B6) 100 mg tablet Take 100 mg by mouth oncedaily.CALCIUM CARBONATE/VITAMIN D3 (CALCIUM 500 + D, D3, ORAL) Take by mouth.MULTI-VITAMIN ORAL Take by mouth.FOLIC ACID ORAL Take by mouth.METHOTREXATE ORAL Take by mouth.PREDNISONE ORAL Take by mouth.CYANOCOBALAMIN, VITAMIN B-12, (VITAMIN B-12 INJECTION) by INJECTION(UNSPECIFIED PARENTERAL ROUTES) route.meloxicam (MOBIC) 15 mg tablet Take 15 mg by mouth once daily.HYDROXYCHLOROQU INE SULFATE (PLAQUENIL ORAL) Take by mouth.RANITIDINE HCL (ZANTAC ORAL) Take by mouth.meclizine (ANTIVERT) 12.5 mg tab Take 25 mg by mouth three times daily.No family history on file.Social HistorySubstance Use Topics- Smoking status: Never Smoker- Smokeless tobacco: Never Used- Alcohol use Not on fileBP 120/80 Pulse 94 Temp 37.7 ?C (99.9 ?F) (Tympanic) Resp 16 Wt 70.5 kg(155 lb 6.4 oz)Physical ExamConstitutional: She is well-developed, well-nourished, and in no distress.Vital signs are normal.Mildly ill.HENT:Head: Normocephalic and atraumatic.Right Ear: Tympanic membrane, external ear and ear canal normal.Left Ear: Tympanic membrane, external ear and ear canal normal.Nose: Mucosal edema and rhinorrhea present. Right sinus exhibits maxillarysinus tenderness and frontal sinus tenderness. Left sinus exhibits maxillarysinus tenderness and frontal sinus tenderness.Mouth/Thro at: Uvula is midline, oropharynx is clear and moist and mucousmembranes are normal. No oropharyngeal exudate, posterior oropharyngeal edemaor posterior oropharyngeal erythema.Neck: Neck supple.Cardiovascular : Normal rate, regular rhythm and normal heart sounds.Pulmonary/Ches t: Effort normal and breath sounds normal. She has no wheezes.She has no rales.Cough with examLymphadenopathy: Head (right side): No submental, no submandibular and no tonsillaradenopathy present. Head (left side): No submental, no submandibular and no tonsillaradenopathy present. She has no cervical adenopathy.Submandibu lar fullness.Neurological : She is alert.Skin: Skin is warm and dry.Nursing note and vitals reviewed.ASSESSMENT/P BEATA:1. Sinobronchitis - ICD9: 473.9, 490, ICD10: J32.9, J40- Will begin treatment with as per antibiotic as written, see orders- Supportive care with plenty of fluids, rest, and analgesia prn.- Follow up in 3-5 days if symptoms persist or worsen.- DOXYCYCLINE HYCLATE 100 MG TABLET- PREDNISONE 20 MG TABLET- BENZONATATE 100 MG CAPSULEPrescription instructions reviewed with patient as applicable. Patient advisedif symptoms do not improve or if symptoms worsen sooner, to contact theirprimary care physician. Potential red flag symptoms discussed with thepatient. Reviewed appropriate action plan to take if red flag symptoms occur.Patient agreeable to treatment plan.Lillian Lawrence CNPReferring Provider: SELF [[id number]]Allergies As of Date: 09/23/2017 Noted Allergy ReactionAMOXICIL-CLAR ITHROMY-LANSOPRAZ 09/23/2017 16 - UnknownAUGMENTIN (AMOXICILLIN-POT CLAVUL*09/23/2017 2 - RashHYDROCODONE-ACETA MINOPHEN 09/23/2017 1 - Mental Status ChangeVOLTAREN (DICLOFENAC SODIUM) 09/23/2017 8 - GI UpsetDate Reviewed: 09/23/2017Reviewed by: Lillian (Lakeshia) Howard - Fully AssessedReason for Visit: Cough [28] Cmt: x1 dayPrimary Visit Diagnosis:Sinobronchi tis [J32.9, J40]Order(s):doxycycl ine (VIBRA-TABS) 100 mg tabletTake 1 tablet by mouth twice daily for 10 days.Disp: 20 tabletRfl: 0 predniSONE (DELTASONE) 20 mg tabletTake 1 tablet by mouth once daily for 4 days.Disp: 4 tabletRfl: 0 benzonatate (TESSALON PERLE) 100 mg capsuleTake 1 capsule by mouth three times daily as needed.Disp: 30 capsuleRfl: 0Prescriptions as of 09/23/2017 Sig: ASPIRIN 81 MG TABLET,DELAYED * Take 81 mg by mouth once henny* VITAMIN E (DL, ACETATE) 100 U* Take 400 Units by mouth once * PYRIDOXINE (VITAMIN B6) 100 M* Take 100 mg by mouth once felicia* CALCIUM 500 + D (D3) ORAL Take by mouth. MULTI-VITAMIN ORAL Take by mouth. FOLIC ACID ORAL Take by mouth. METHOTREXATE ORAL Take by mouth. PREDNISONE ORAL Take by mouth. VITAMIN B-12 INJECTION by INJECTION(UNSPECIFIED PARE* MELOXICAM 15 MG TABLET Take 15 mg by mouth once henny* PLAQUENIL ORAL Take by mouth. ZANTAC ORAL Take by mouth. MECLIZINE 12.5 MG TABLET Take 25 mg by mouth three brandee* DOXYCYCLINE HYCLATE 100 MG TA* Take 1 tablet by mouth twice * PREDNISONE 20 MG TABLET Take 1 tablet by mouth once d* BENZONATATE 100 MG CAPSULE Take 1 capsule by mouth three*Problem List As Of Date: 09/23/2017(None)Presc riptions ordered this encounter Disp Refills Start End DOXYCYCLINE HYCLATE 100 MG TABLET 20 t* 0 09/23/2017 10/03/2017 Route: ORAL Sig: Take 1 tablet by mouth twice daily for 10 days. PREDNISONE 20 MG TABLET 4 ta* 0 09/23/2017 09/27/2017 Route: ORAL Sig: Take 1 tablet by mouth once daily for 4 days. BENZONATATE 100 MG CAPSULE 30 c* 0 09/23/2017 Route: ORAL Sig: Take 1 capsule by mouth three times daily as needed. Status:Closed by LILLIAN LAWRENCE CNP on 09/23/17 Normal [facility] PROGRESSon 09-23-2017 PROGRESS HNO ID: [id number]: Lillian (Lakeshia) Julisaervice: (none)Author Type: Nurse PractitionerType: Progress NotesFiled: 09/23/2017 6:15 PMNote Text:HPI Patient is a 72 year old female here today for a 3 week history ofsore throat. States she now has a cough and felt that she had chills. Hashad nasal congestion along with sore throat. States she has increasedsinus pressure. States she has gargled with vinegar water. Nothing makesit better or worse. No other concerns at this time .Review of SystemsConstitutional : Positive for chills and malaise/fatigue. Negative forfever.HENT: Positive for congestion, ear pain and sore throat.Respiratory: Positive for cough. Negative for sputum production, shortnessof breath and wheezing.Cardiovascul ar: Negative.Gastrointest inal: Negative for nausea and vomiting.Musculoskele gudelia: Negative for myalgias.Neurological : Positive for headaches (sinus pressure).Endo/Heme/A llergies: Negative for environmental allergies.All other systems reviewed and are negative.No past medical history on file.No past surgical history on file.ALLERGIES Amoxicil-Clarithromy- Lansopraz; Augmentin [Amoxicillin-PotClavu lanate]; Hydrocodone-Acetamino phen; Voltaren [Diclofenac Sodium]MEDICATIONSasp irin, enteric coated (ASPIRIN, ENTERIC COATED) 81 mg EC tablet Take 81mg by mouth once daily.VITAMIN E, DL,TOCOPHERYL ACET, (VITAMIN E, DL, ACETATE,) 100 unit capsuleTake 400 Units by mouth once daily.pyridoxine, vitamin B6, (VITAMIN B6) 100 mg tablet Take 100 mg by mouthonce daily.CALCIUM CARBONATE/VITAMIN D3 (CALCIUM 500 + D, D3, ORAL) Take by mouth.MULTI-VITAMIN ORAL Take by mouth.FOLIC ACID ORAL Take by mouth.METHOTREXATE ORAL Take by mouth.PREDNISONE ORAL Take by mouth.CYANOCOBALAMIN, VITAMIN B-12, (VITAMIN B-12 INJECTION) byINJECTION(UNSPECIFI ED PARENTERAL ROUTES) route.meloxicam (MOBIC) 15 mg tablet Take 15 mg by mouth once daily.HYDROXYCHLOROQU INE SULFATE (PLAQUENIL ORAL) Take by mouth.RANITIDINE HCL (ZANTAC ORAL) Take by mouth.meclizine (ANTIVERT) 12.5 mg tab Take 25 mg by mouth three times daily.No family history on file.Social HistorySubstance Use Topics- Smoking status: Never Smoker- Smokeless tobacco: Never Used- Alcohol use Not on fileBP 120/80 Pulse 94 Temp 37.7 ?C (99.9 ?F) (Tympanic) Resp 16 Wt70.5 kg (155 lb 6.4 oz)Physical ExamConstitutional: She is well-developed, well-nourished, and in no distress.Vital signs are normal.Mildly ill.HENT:Head: Normocephalic and atraumatic.Right Ear: Tympanic membrane, external ear and ear canal normal.Left Ear: Tympanic membrane, external ear and ear canal normal.Nose: Mucosal edema and rhinorrhea present. Right sinus exhibits maxillarysinus tenderness and frontal sinus tenderness. Left sinus exhibitsmaxillary sinus tenderness and frontal sinus tenderness.Mouth/Thro at: Uvula is midline, oropharynx is clear and moist and mucousmembranes are normal. No oropharyngeal exudate, posterior oropharyngealedema or posterior oropharyngeal erythema.Neck: Neck supple.Cardiovascular : Normal rate, regular rhythm and normal heart sounds.Pulmonary/Ches t: Effort normal and breath sounds normal. She has nowheezes. She has no rales.Cough with examLymphadenopathy: Head (right side): No submental, no submandibular and no tonsillaradenopathy present. Head (left side): No submental, no submandibular and no tonsillaradenopathy present. She has no cervical adenopathy.Submandibu lar fullness.Neurological : She is alert.Skin: Skin is warm and dry.Nursing note and vitals reviewed.ASSESSMENT/P BEATA:1. Sinobronchitis - ICD9: 473.9, 490, ICD10: J32.9, J40- Will begin treatment with as per antibiotic as written, see orders- Supportive care with plenty of fluids, rest, and analgesia prn.- Follow up in 3-5 days if symptoms persist or worsen.- DOXYCYCLINE HYCLATE 100 MG TABLET- PREDNISONE 20 MG TABLET- BENZONATATE 100 MG CAPSULEPrescription instructions reviewed with patient as applicable. Patientadvised if symptoms do not improve or if symptoms worsen sooner, tocontact their primary care physician. Potential red flag symptomsdiscussed with the patient. Reviewed appropriate action plan to take ifred flag symptoms occur. Patient agreeable to treatment plan.Lillian Lawrence CNP Normal [facility] Vital Signs Date Time Vital Sign Value Performing Clinician Facility 02-21-2024 13:23-0400 Body height 167.6 cm [facility] 02-21-2024 13:23-0400 Body mass index (BMI) [Ratio] 23.24 kg/m2 [facility] 02-21-2024 13:23-0400 Body weight 65.32 kg [facility] 02-09-2024 10:30-0400 Body height 167.6 cm Rogers [employer] DO Work Phone: [facility] 02-09-2024 10:30-0400 Body mass index (BMI) [Ratio] 23.24 kg/m2 Rogers Thomae DO Work Phone: [facility] 02-09-2024 10:30-0400 Body weight 65.32 kg Rogers [employer] DO Work Phone: [facility] 12-20-2023 09:11-0400 Body height 167.6 cm Akanksha Millan MD Work Phone: [facility] 12-20-2023 09:11-0400 Body mass index (BMI) [Ratio] 23.08 kg/m2 Akanksha Millan MD Work Phone: [facility] 12-20-2023 09:11-0400 Body weight 64.86 kg Akanksha Millan MD Work Phone: 2(978)782-065367 [place] [address] 12-20-2023 09:11-0400 Diastolic blood pressure 70 mm[Hg] Akanksha Millan MD Work Phone: 3(791)614-011467 [place] [address] 12-20-2023 09:11-0400 Heart rate 61 /min Akanksha Millan MD Work Phone: 5(065)693-605867 [place] [address] 12-20-2023 09:11-0400 SaO2% (BldA) [Mass fraction] 97 % Akanksha Millan MD Work Phone: 9(526)157-875267 [place] [address] 12-20-2023 09:11-0400 Systolic blood pressure 130 mm[Hg] Akanksha Millan MD Work Phone: 0(664)939-415267 [place] [address] 12-12-2023 13:52-0400 Body height 167.6 cm Mulugeta Almanza [employer] Work Phone: 2(544)923-157367 [place] [address] 12-12-2023 13:52-0400 Body mass index (BMI) [Ratio] 23.3 kg/m2 Mulugeta Wood [employer] Work Phone: 4(352)632-015767 [place] [address] 12-12-2023 13:52-0400 Body weight 65.48 kg Mulugeta Prashanth [employer] Work Phone: 1(109)074-922267 [place] [address] 12-12-2023 13:52-0400 Diastolic blood pressure 76 mm[Hg] Mulugeta Wood [employer] Work Phone: 4(122)922-539667 [place] [address] 12-12-2023 13:52-0400 Heart rate 63 /min Mulugeta Almanza [employer] Work Phone: [facility] 12-12-2023 13:52-0400 SaO2% (BldA) [Mass fraction] 98 % Mulugeta Almanza [employer] Work Phone: [facility] 12-12-2023 13:52-0400 Systolic blood pressure 126 mm[Hg] Mulugeta Almanza [employer] Work Phone: [facility] 09-27-2023 11:10-0500 Body height 167.6 cm Araseli Mcdermott MD Work Phone: [facility] 09-27-2023 11:10-0500 Body mass index (BMI) [Ratio] 22.87 kg/m2 Araseli Mcdermott MD Work Phone: [facility] 09-27-2023 11:10-0500 Body weight 64.28 kg Araseli Mcdermott MD Work Phone: [facility] 09-27-2023 11:10-0500 Diastolic blood pressure 72 mm[Hg] Araseli Mcdermott MD Work Phone: [facility] 09-27-2023 11:10-0500 Heart rate 89 /min Araseli Mcdermott MD Work Phone: [facility] 09-27-2023 11:10-0500 SaO2% (BldA) [Mass fraction] 96 % Araseli Mcdermott MD Work Phone: [facility] 09-27-2023 11:10-0500 Systolic blood pressure 138 mm[Hg] Araseli Mcdermott MD Work Phone: [facility] 09-06-2023 12:05-0500 Diastolic blood pressure 94 mm[Hg] [facility] 1 [facility] 09-06-2023 12:05-0500 Heart rate 59 /min [facility] 1 [facility] 09-06-2023 12:05-0500 Respiratory rate 16 /min [facility] 1 [facility] 09-06-2023 12:05-0500 SaO2% (BldA) [Mass fraction] 96 % [facility] 1 [facility] 09-06-2023 12:05-0500 Systolic blood pressure 174 mm[Hg] Faustino 1 [facility] 08-25-2023 10:48-0500 Body height 167.6 cm Milan Reid MD Work Phone: [facility] 08-25-2023 10:48-0500 Body mass index (BMI) [Ratio] 22.77 kg/m2 Milan Reid MD Work Phone: [facility] 08-25-2023 10:48-0500 Body weight 64 kg Milan Reid MD Work Phone: [facility] 08-25-2023 10:48-0500 Diastolic blood pressure 80 mm[Hg] Milan Reid MD Work Phone: [facility] 08-25-2023 10:48-0500 Heart rate 59 /min Milan Reid MD Work Phone: [facility] 08-25-2023 10:48-0500 SaO2% (BldA) [Mass fraction] 96 % Milan Reid MD Work Phone: [facility] 08-25-2023 10:48-0500 Systolic blood pressure 122 mm[Hg] Milan Reid MD Work Phone: [facility] 08-26-2022 11:21-0500 Body height 167.64 cm Akanksha Millan Work Phone: WA[facility]Wxiffwjfue-Diej [address] Work Phone: 08-26-2022 11:21-0500 Body mass index (BMI) [Ratio] 22.78 kg/m2 Akanksha Millan Work Phone: FX-Vjekzyjigb-Myah [address] Work Phone: 08-26-2022 11:21-0500 Body surface area Derived from formula 1.72 m2 Akanksha Millan Work Phone: PJ-Komhdalboi-Jkpa [address] Work Phone: 08-26-2022 11:21-0500 Body weight 64.02 kg Akanksha Millan Work Phone: RG-Vfiaxzupim-Vpjv [address] Work Phone: 08-26-2022 11:21-0500 Diastolic blood pressure 76 mm[Hg] Dangpatrick Chucho Colton Work Phone: JK-Esriynmezx-Bsmm [address] Work Phone: 08-26-2022 11:21-0500 Heart rate 56 /min Dangpatrick Chucho Colton Work Phone: PZ-Eheqjkaebq-Dayp [address] Work Phone: 08-26-2022 11:21-0500 SaO2% (BldA) [Mass fraction] 99 % Dangpatrick Chucho Colton Work Phone: OL-Eofuzyncqs-Cwzm [address] Work Phone: 08-26-2022 11:21-0500 Systolic blood pressure 142 mm[Hg] Dangpatrick Chucho Colton Work Phone: PX-Pocfctcpjm-Gzse [address] Work Phone: 08-12-2022 10:07-0500 Body height 167.64 cm Dangpatrick Millan Work Phone: PA-Ibfrdxwzdz-Xrjk [address] Work Phone: 08-12-2022 10:07-0500 Body mass index (BMI) [Ratio] 22.82 kg/m2 Dangmelirais Farrell Millan Work Phone: ES-Ecnvhsvojy-Hjns [address] Work Phone: 08-12-2022 10:07-0500 Body surface area Derived from formula 1.73 m2 Dangmelirais Millan Work Phone: OG-Tmpjkjgqfi-Cxtb [address] Work Phone: 08-12-2022 10:07-0500 Body weight 64.13 kg Akanksha Millan Work Phone: LE-Mscjqbpfkn-Pget [address] Work Phone: 08-12-2022 10:07-0500 Diastolic blood pressure 80 mm[Hg] Akanksha Hernandezd Work Phone: ZA-Poeihwwihp-Nbtm [address] Work Phone: 08-12-2022 10:07-0500 Systolic blood pressure 140 mm[Hg] Dangpatrick Millan Work Phone: LV-Vfnialqvbl-Nxdb [address] Work Phone: 05-13-2022 10:08-0400 Body height 167.64 cm Dangpatrick Chucho Millan Work Phone: [facility] Work Phone: 05-13-2022 10:08-0400 Body mass index (BMI) [Ratio] 22.92 kg/m2 Dangpatrick Chucho Millan Work Phone: [facility] Work Phone: 05-13-2022 10:08-0400 Body surface area Derived from formula 1.73 m2 Dangmelirais Millan Work Phone: [facility] Work Phone: 05-13-2022 10:08-0400 Body weight 64.41 kg Dangpatrick Millan Work Phone: [facility] Work Phone: 05-13-2022 10:08-0400 Diastolic blood pressure 80 mm[Hg] Akanksha Millan Work Phone: [facility] Work Phone: 05-13-2022 10:08-0400 Systolic blood pressure 130 mm[Hg] Akanksha Millan Work Phone: [facility] [address] Work Phone: 02-11-2022 14:14-0400 Body height 167.64 cm Akanksha Millan Work Phone: [facility] [address] Work Phone: 02-11-2022 14:14-0400 Body mass index (BMI) [Ratio] 23.24 kg/m2 Akanksha Millan Work Phone: [facility] [address] Work Phone: 02-11-2022 14:14-0400 Body surface area Derived from formula 1.74 m2 Akanksha Millan Work Phone: [facility] [address] Work Phone: 02-11-2022 14:14-0400 Body weight 65.32 kg Akanksha Millan Work Phone: [facility] [address] Work Phone: 02-11-2022 14:14-0400 Diastolic blood pressure 70 mm[Hg] Akanksha Millan Work Phone: [facility] [address] Work Phone: 02-11-2022 14:14-0400 Systolic blood pressure 120 mm[Hg] Akanksha Millan Work Phone: [facility] [address] Work Phone: 12-09-2021 10:10-0400 Body height 167.64 cm Akanksha Millan Work Phone: [facility] Work Phone: 12-09-2021 10:10-0400 Body mass index (BMI) [Ratio] 23 kg/m2 Akanksha Millan Work Phone: [facility] Work Phone: 12-09-2021 10:10-0400 Body surface area Derived from formula 1.73 m2 Akanksha Millan Work Phone: [employer] [facility] Work Phone: 12-09-2021 10:10-0400 Body weight 64.64 kg Akanksha Millan Work Phone: [employer] [facility] Work Phone: 12-09-2021 10:10-0400 Diastolic blood pressure 70 mm[Hg] Akanksha Millan Work Phone: [employer] [facility] Work Phone: 12-09-2021 10:10-0400 Heart rate 57 /min Akanksha Millan Work Phone: [employer] [facility] Work Phone: 12-09-2021 10:10-0400 SaO2% (BldA) [Mass fraction] 97 % Akanksha Millan Work Phone: [employer] [facility] Work Phone: 12-09-2021 10:10-0400 Systolic blood pressure 128 mm[Hg] Akanksha Millan Work Phone: [employer] [facility] Work Phone: 02-13-2021 11:40-0400 Body height 169.55 cm Akanksha Millan Work Phone: [facility] [employer] Work Phone: 02-13-2021 11:40-0400 Body mass index (BMI) [Ratio] 21.84 kg/m2 Akanksha Millan Work Phone: [facility] Work Phone: 02-13-2021 11:40-0400 Body surface area Derived from formula 1.72 m2 Akanksha Hernandezd Work Phone: [facility] Work Phone: 02-13-2021 11:40-0400 Body temperature 95.6 [degF] Akanksha Millan Work Phone: [facility] [employer] Work Phone: 02-13-2021 11:40-0400 Body weight 62.77 kg Akanksha Millan Work Phone: [facility] [employer] Work Phone: 02-13-2021 11:40-0400 Diastolic blood pressure 86 mm[Hg] Akanksha Millan Work Phone: [facility] [employer] Work Phone: 02-13-2021 11:40-0400 Heart rate 75 /min Akanksha Millan Work Phone: [facility] Work Phone: 02-13-2021 11:40-0400 SaO2% (BldA) [Mass fraction] 99 % Akanksha Millan Work Phone: [facility] Work Phone: 02-13-2021 11:40-0400 Systolic blood pressure 142 mm[Hg] Akanksha Millan Work Phone: [facility] Work Phone: 12-05-2019 11:54-0400 BMI (Body Mass Index) 23.02 kg/m2 Akanksha Millan [employer] [facility] Work Phone: 12-05-2019 11:54-0400 Body weight 66.68 kg Akanksha Millan [employer] [facility] Work Phone: 12-05-2019 11:54-0400 BP Diastolic 70 mm[Hg] Akanksha Millan [employer] [facility] Work Phone: Comment on above: Location: E; 12-05-2019 11:54-0400 BP Systolic 124 mm[Hg] Akanksha Millan [employer] [facility] Work Phone: Comment on above: Location: RUE; 12-05-2019 11:54-0400 BSA (Body Surface Area) 1.77 m2 Akanksha Hernandezd [employer] [facility] Work Phone: 12-05-2019 11:54-0400 Height 170.18 cm Akanksha Hernandezd [employer] [facility] Work Phone: 12-05-2019 11:54-0400 Pulse (Heart Rate) 69 /min Akanksha Hernandezd [employer] [facility] Work Phone: 12-05-2019 11:54-0400 Pulse Oximetry 98 % Akanksha Hernandezd [employer] [facility] Work Phone: Encounters Encounter Date Encounter Type Care Provider Facility Start: 05-01-2024 End: 05-01-2024 ambulatory [facility] Ambulatory Start: 04-10-2024 End: 04-10-2024 ambulatory [facility] Ambulatory Start: 03-28-2024 End: 03-30-2024 ambulatory [facility] Start: 03-28-2024 End: 03-28-2024 Emergency department patient visit [facility] Start: 03-27-2024 End: 03-27-2024 ambulatory [facility] Start: 03-26-2024 End: 03-26-2024 ambulatory [facility] Start: 03-23-2024 End: 03-23-2024 ambulatory [facility] Start: 03-16-2024 End: 03-16-2024 Emergency department patient visit [facility] Start: 03-16-2024 End: 03-16-2024 ambulatory [facility] Start: 02-21-2024 End: 02-21-2024 ambulatory [facility] Start: 02-21-2024 End: 02-21-2024 Subsequent hospital visit by physician [facility] Comment on above: Breast cancer screen ing by mammogram Start: 02-09-2024 End: 02-09-2024 Office outpatient visit 15 minutes Rogers Bradley DO Work Phone: [facility] Comment on above: Irritable bowel synd tammy, unspecified type (Primary Dx) Start: 02-09-2024 End: 02-09-2024 ambulatory DARIEN Pollo [facility] Ambulatory Start: 12-20-2023 End: 12-20-2023 Assay of hemosiderin, quant Akanksha Millan MD Work Phone: [facility] Work Phone: Start: 12-20-2023 End: 12-20-2023 Patient encounter procedure Akanksha Millan MD Work Phone: [facility] Comment on above: Routine general medi jaspal examination at health care facility (Primary Dx); Rheumatoid arthritis with negative rheumatoid factor, involving unspecified site (CMS/HCC); Fatigue, unspecified type; Hyperlipemia, mixed; Pulmonary hypertension (CMS/HCC); Vitamin B12 deficiency; Irritable bowel syndrome, unspecified type; Hematuria, unspecified type; Breast cancer screening by mammogram Start: 12-20-2023 End: 12-20-2023 ambulatory [place] Start: 12-20-2023 End: 12-20-2023 Encounter for general adult medical examination without abnormal findings [facility] Ambulatory Start: 12-12-2023 End: 12-12-2023 ambulatory [facility] Ambulatory Start: 12-12-2023 End: 12-12-2023 Office outpatient visit 15 minutes [facility] [employer] Work Phone: [facility] Comment on above: Acute cystitis with hematuria (Primary Dx); Rheumatoid arthritis, involving unspecified site, unspecified whether rheumatoid factor present (CMS/HCC); Pulmonary hypertension (CMS/HCC); Hematuria, unspecified type Start: 09-27-2023 End: 09-27-2023 ambulatory [facility] Start: 09-27-2023 End: 09-27-2023 Office outpatient visit 15 minutes Araseli Mcdermott MD Work Phone: [facility] Comment on above: Acute cough (Primary Dx) Start: 09-06-2023 End: 09-06-2023 Subsequent hospital visit by physician Faustino Montanez [facility] Comment on above: Irregular heartbeat; Syncope and collapse Start: 09-06-2023 End: 09-06-2023 ambulatory [facility] Start: 08-25-2023 End: 08-25-2023 Office outpatient visit 25 minutes Milan Reid MD Work Phone: [facility] Comment on above: Syncope and collapse (Primary Dx); Irregular heartbeat Start: 08-25-2023 End: 08-25-2023 ambulatory [facility] Ambulatory Start: 02-18-[address] Rashid Millan Facility:[id number] Start: 08-26-2022 Office outpatient vi sit 15 minutes Akanksha Millan Work Phone: RA[facility]Fgdpfytrmw-Oen[facility] [address] Work Phone: Start: 05-13-2022 Office outpatient vi sit 15 minutes Akanksha Millan Work Phone: [facility] Work Phone: Start: 04-14-2022 AUDIT Akanksha Millan Work Phone: [address] Work Phone: Start: 02-18-2022 Chart Update Akanksha Millan Work Phone: -[facility] Work Phone: Start: 02-11-2022 Office outpatient ne w 30 minutes Akanksha Millan Work Phone: [facility] [address] Work Phone: Start: 12-09-2021 Patient encounter procedure Akanksha Millan Work Phone: [facility] Work Phone: Start: 08-18-2021 End: 08-18-[address] DANIAL SOSA [facility] Start: 05-12-2021 AUDIT Akanksha Millan Work Phone: AK-Hezqxzjsgi-Kmyfux[facility] [address] Work Phone: Start: 02-13-2021 Office outpatient ne w 45 minutes Akanksha Millan Work Phone: FF-Hjedgxiptw-Asdhwaq [address] Work Phone: Start: 01-29-2021 AUDIT Akanksha Millan Work Phone: [facility] Work Phone: Start: 09-23-2017 End: 09-23-2017 Ambulatory [facility] Patient encounter procedure Akanksha Millan Work Phone: [facility] Work Phone: Procedures Date Procedure Procedure Detail Performing Clinician Start: 02-21-2024 Screening digital br east tomosynthesis bi Akanksha Millan MD Work Phone: Start: 02-09-2024 Follow-up visit Follow-up ROGERS BRADLEY Start: 01-10-2024 Lipid 1996 panel - S franklyn or Plasma Rogers Bradley DO Work Phone: Start: 12-20-2023 CBC W Auto Different ial panel - Blood MILAN FRANKLIN Start: 12-20-2023 Comprehensive metabo lic 2000 panel - Serum or Plasma MILAN FRANKLIN Start: 12-20-2023 Cyanocobalamin vitamin b-12 MILAN FRANKLIN Start: 12-20-2023 Lipid panel MILAN HU SSAIN Start: 12-20-2023 Urnls dip stick/tabl et rgnt auto w/o microscopy Akanksha Millan MD Work Phone: Start: 12-20-2023 FOLLOW UP IN FAMILY MEDICINE MILAN FRANKLIN Start: 12-12-2023 POCT UA AUTOMATED MA NUALLY RESULTED MILAN FRANKLIN Start: 12-12-2023 Urnls dip stick/tabl et rgnt auto w/o microscopy Mulugeta Almanza [employer] Work Phone: Start: 09-06-2023 TRANSTHORACIC ECHO ( TTE) COMPLETE MILAN REID Start: 09-06-2023 Echo tthrc r-t 2d w/ wom-mode compl spec&colr d Milan Reid MD Work Phone: Start: 08-25-2023 ECG 12-LEAD MILAN MERRITT Start: 08-25-2023 Ecg routine ecg w/le ast 12 lds w/i&r Milan Reid MD Work Phone: Start: 12-23-2022 Lipid 1996 panel - S franklyn or Plasma Milan Reid MD Work Phone: Start: 01-27-2021 Echocardiography Dang Millan Work Phone: Start: 12-05-2019 Assay of thyroid sti mulating hormone tsh Akanksha Millan Start: 12-05-2019 Blood count complete auto&auto difrntl wbc Akanksha Millan Start: 12-05-2019 Comprehensive metabo lic 2000 panel Akanksha Millan Start: 12-05-2019 Cyanocobalamin vitamin b-12 Akanksha Millan Start: 12-05-2019 Hemoglobin glycosylated a1c Akanksha Millan Start: 12-05-2019 Lipid panel Rashid Millan Start: 12-05-2019 MG Breast screening Chr cj Millan Colonoscopy Akanksha farrell Comment on above: 2018, Thomae, negati ve; Dilation and curettage Roberto Millan Hysterectomy Akanksha farrell Ligation of fallopian tube C hristpatrick Millan Surgical procedure o n eye proper Akanksha Millan Work Phone: Comment on above: cataracts; Plan of Treatment Date Care Activity Detail Author Start: 01-09-2029 Lipid panel Lipid Panel [facility] Start: 12-24-2027 Lipid panel Lipid Panel [facility] Start: 02-07-2025 End: 02-07-2025 Patient encounter procedure 02/07/2025 10:00 AM EDT Office Visit [facility] [address] [place] [id number] Rogers Bradley DO [address] [facility] [address] [place] [address] [facility] Start: 12-20-2024 Medicare Annual Wellness Visit Medicare Annual Wellness Visit (AWV) [facility] Start: 12-20-2024 End: 12-20-2024 Patient encounter procedure 12/20/2024 10:00 AM EDT Office Visit [facility] [address] [place] [id number] Akanksha Millan MD [address] [place] [address] [facility] Start: 08-16-2024 End: 08-16-2024 Patient encounter procedure 08/16/2024 11:15 AM EST Office Visit [facility] Building [address] [place] [id number] Milan Reid MD [address], [facility] [address] [place] [address] [facility] Start: 05-27-2024 Influenza vaccination Influenz a Vaccine (Season Ended) [facility] Start: 02-21-2024 End: 02-21-2024 Patient encounter procedure 02/21/2024 1:15 PM EDT [facility] [facility] [address] [place] [id number] [facility] Start: 02-09-2024 End: 02-09-2024 Patient encounter procedure 02/09/2024 10:30 AM EDT Office Visit [facility] [address] [place] [id number] Rogers Bradley DO [address] [facility], [address] [place] [address] [facility] Start: 12-27-2023 Zoster Vaccines (3 o f 3) Zoster Vaccines (3 of 3) [facility] Start: 12-20-2023 End: 12-19-2024 CBC W Auto Differential panel - Blood CBC and Auto Differential Lab Routine Rheumatoid arthritis with negative rheumatoid factor, involving unspecified site (CMS/HCC) Fatigue, unspecified type Expected: 12/20/2023 (Approximate), Expires: 12/19/2024 [facility] Service Area Work Phone: Comment on above: Expected: 12/20/2023 (Approximate), Expires: 12/19/2024 Start: 12-20-2023 End: 12-19-2024 Cobalamin (Vitamin B12) [Mass/volume] in Serum or Plasma Vitamin B12 Lab Routine Fatigue, unspecified type Vitamin B12 deficiency Expected: 12/20/2023 (Approximate), Expires: 12/19/2024 [facility] Work Phone: Comment on above: Expected: 12/20/2023 (Approximate), Expires: 12/19/2024 Start: 12-20-2023 End: 12-19-2024 Comprehensive metabolic 2000 panel - Serum or Plasma Comprehensive Metabolic Panel Lab Routine Rheumatoid arthritis with negative rheumatoid factor, involving unspecified site (CMS/HCC) Fatigue, unspecified type Hyperlipemia, mixed Pulmonary hypertension (CMS/HCC) Vitamin B12 deficiency Expected: 12/20/2023 (Approximate), Expires: 12/19/2024 [facility] Work Phone: Comment on above: Expected: 12/20/2023 (Approximate), Expires: 12/19/2024 Start: 12-20-2023 End: 02-18-2025 DBT Breast - bilateral BI mammo bilateral screening tomosynthesis Imaging Routine Breast cancer screening by mammogram Expected: 12/20/2023, Expires: 02/18/2025 [facility] Work Phone: Comment on above: Expected: 12/20/2023 , Expires: 02/18/2025 Start: 12-20-2023 End: 12-19-2024 Lipid 1996 panel - Serum or Plasma Lipid Panel Lab Routine Hyperlipemia, mixed Expected: 12/20/2023 (Approximate), Expires: 12/19/2024 [facility] Work Phone: Comment on above: Expected: 12/20/2023 (Approximate), Expires: 12/19/2024 Start: 12-20-2023 End: 12-20-2023 Patient encounter procedure 12/20/2023 9:20 AM EDT Office Visit [facility] [address] [place] [address] Akanksha Millan MD [address] [place] [address] [facility] Start: 12-19-2023 Medicare Annual Wellness Visit Medicare Annual Wellness Visit (AWV) [facility] Start: 12-19-2023 End: 12-19-2023 Patient encounter procedure 12/19/2023 10:20 AM EDT Office Visit [facility] [address] [place] [address] Akanksha Millan MD [address] [place] [address] [facility] Start: 08-25-2023 End: 08-25-2025 US Heart Transthoracic Transthoracic Echo (TTE) Complete Echocardiography Routine Irregular heartbeat Syncope and collapse Expected: 08/25/2023 (Approximate), Expires: 08/25/2025 [facility] Service Area Work Phone: Comment on above: Expected: 08/25/2023 (Approximate), Expires: 08/25/2025 Start: 08-25-2023 FUV, Provider: Milan Reid, Status: Pen, Time: 10:30 AM FUV, Provider: Milan Reid, Status: Pen, Time: 10:30 AM QH-Qjfgtzajrv-Frhg and [address] [employer] Work Phone: Start: 05-27-2023 COVID-19 Vaccine ( season) COVID-19 Vaccine () [facility] Start: 05-27-2023 COVID-19 Vaccine ( season) COVID-19 Vaccine () [facility] Start: 05-27-2023 Influenza vaccination Influenza Vacc ine (#1) [facility] Start: 02-10-2023 FUV, Provider: Rogers Bradley, Status: Pen, Time: 10:30 AM FUV, Provider: Rogers Bradley, Status: Pen, Time: 10:30 AM XX-Hcdbpphgix-Flzu and [address] [employer] Work Phone: Start: 12-15-2022 Patient encounter procedure MCRANNUAL, Provider: Akanksha Millan, Status: Pen, Time: 10:00 AM [facility] Work Phone: Start: 08-13-2022 COVID-19 Vaccine (4 - Moderna series) COVID-19 Vaccine (4 - Moderna series) [facility] Start: 08-12-2022 FUV, Provider: Rogers Bradley, Status: Pen, Time: 10:00 AM FUV, Provider: Rogers Bradley, Status: Pen, Time: 10:00 AM [facility] 120 Work Phone: Start: 08-11-2022 FUV, Provider: Milan Reid, Status: Pen, Time: 11:15 AM FUV, Provider: Milan Reid, Status: Pen, Time: 11:15 AM [facility] Work Phone: Start: 05-13-2022 FUV, Provider: Rogers Bradley, Status: Pen, Time: 10:00 AM FUV, Provider: Rogers Bradley, Status: Pen, Time: 10:00 AM [facility] Work Phone: Start: 02-11-2022 NPV, Provider: Rogers Bradley, Status: Pen, Time: 2:00 PM NPV, Provider: Rogers Bradley, Status: Pen, Time: 2:00 PM [facility] Work Phone: Start: 12-08-2021 Patient encounter procedure MCRANNUAL, Provider: Akanksha Millan, Status: Pen, Time: 10:00 AM [facility] Work Phone: Start: 08-18-2021 FUV, Provider: Milan Reid, Status: Pen, Time: 3:00 PM FUV, Provider: Milan Reid, Status: Pen, Time: 3:00 PM [facility] Work Phone: Start: 08-12-2021 FUV, Provider: Milan Reid, Status: Pen, Time: 11:15 AM FUV, Provider: Milan Reid, Status: Pen, Time: 11:15 AM TC-Lcxbytdzzx-Pezo and [address] [employer] Work Phone: Start: 11-23-2012 Zoster Vaccines (2 o f 3) Zoster Vaccines (2 of 3) [facility] Start: 1967 DTaP/Tdap/Td Vaccine s (1 - Tdap) DTaP/Tdap/Td Vaccines (1 - Tdap) [facility] Start: 1963 Hepatitis C screening Hepatitis C [facility] Start: 1945 Medicare Annual Wellness Visit Medicare Annual Wellness Visit (AWV) [facility] MG Breast screening Mamm - Scree bal Mammogram w/ Tomosynthesis [facility] Work Phone: Comment on above: After 07Jan2020 [facility] Work Phone: NEGATED: Highlighted row has been ruled out! Planned Goals not documented [facility] Work Phone: Immunizations Immunization Date Immunization Notes Care Provider Fa merlin 07-01-2022 influenza virus vaccine, unspecified formulation Milan Franklin MD Work Phone: [facility] Work Phone: 08-11-2021 Moderna COVID-19 Vaccine 100 MCG/0.5ML Intramuscular Suspension Akanksha Millan Work Phone: [facility] Comment on above: Series: 06-30-2021 influenza, seasonal, injectable Akanksha Millan Work Phone: [facility] Work Phone: Comment on above: Series: 11-19-2020 Moderna COVID-19 Vaccine 100 MCG/0.5ML Intramuscular Suspension Akanksha Millan Work Phone: [facility] Comment on above: Series: 10-22-2020 Moderna COVID-19 Vaccine 100 MCG/0.5ML Intramuscular Suspension Akanksha Millan Work Phone: [facility] Comment on above: Series: 07-01-2020 influenza, seasonal, injectable Dangpatrick Millan Work Phone: [facility] Work Phone: Comment on above: Series: 07-11-2019 influenza, seasonal, injectable Paulirais Millan [facility] Work Phone: Comment on above: Series: 03-06-2018 pneumococcal polysaccharide vaccine, 23 valent Akanksha Millan Work Phone: [facility] Work Phone: Comment on above: Series: 03-06-2018 pneumococcal polysaccharide vaccine, 23 valent Akanksha Millan [facility] Work Phone: 11-12-2015 pneumococcal conjuga te vaccine, 13 valent Akanksha Millan -[facility] Work Phone: Comment on above: Series: 09-28-2012 pneumococcal polysaccharide vaccine, 23 valent Akanksha Millan [facility] Work Phone: Comment on above: Series: 09-28-2012 zoster vaccine, live Paulirais David chucho [facility] Work Phone: Comment on above: Series: 09-28-2012 pneumococcal polysaccharide vaccine, 23 valent Akanksha Hernandezd [facility] Work Phone: 09-26-2012 pneumococcal polysaccharide vaccine, 23 valent Akanksha Chucho Millan Work Phone: [facility] Work Phone: Comment on above: Series: 09-11-2009 novel [id number], preservative-free, injectable Akanksha Chucho Millan Work Phone: [facility] Work Phone: 08-08-2007 influenza virus vaccine, whole virus Akanksha Chucho Millan Work Phone: [facility] Work Phone: Payers Date Payer Category Payer Medicare [employer] MEDICARE A [employer] MEDICARE [id number] 2021-Present [address] [place] [address] [id number] 2021 Private Health Insurance [id number] 1945 Unknown [id number] 51 1945 Unknown [id number] [id number] 069 1945 Unknown [id number] [id number] 244 1945 Unknown [id number] 2.16.840.1.600853.3.579.2.1 244 1945 Unknown [id number] 2.16.840.1.674624.3.579.2.1 244 1945 Unknown [id number] 2.16.840.1.507686.3.579.2.1 244 1945 Unknown [id number] 2.16.840.1.102655.3.579.2.1 244 1945 Unknown [id number] 2.16.840.1.513347.3.579.2.1 244 1945 Unknown [id number] 2.16840.1.309223.3.579.2.1 244 1945 Unknown [id number] 2.16.840.1.119911.3.579.2.1 244 1945 Unknown [id number] 2.16840.1.088820.3.579.2.1 244 1945 Unknown [id number] 2.840.1.999858.3.579.2.1 245 1945 Unknown [id number] 2.840.1.127188.3.579.2.1 245 1945 Unknown [id number] 2.840.1.623043.3.579.2.1 245 1945 Unknown [id number] 2.16840.1.852745.3.579.2.1 245 1945 Unknown [id number] 2.840.1.094464.3.579.2.1 243 1945 Unknown [id number] 2.840.1.470256.3.579.2.1 243 1945 Unknown [id number] 2.840.1.037233.3.579.2.1 243 1945 Unknown [id number] 2.16840.1.581470.3.579.2.1 243 1945 Unknown [id number] [id number] 243 Private Health Insurance MEB [id number] Unknown [employer] Social History Date Type Detail Facility Assertion [facility] (finding[facility] Work Phone: Start: 12-17-2022 End: 12-20-2023 Patient has healthcare proxy and living will Patient has healthcare proxy and living will [facility] Start: 08-25-2023 Tobacco smoking stat us NHIS Never smoked tobacco [facility] Work Phone: Start: 08-25-2023 Tobacco use and exposure Smokeless tobacco non-user [facility] Work Phone: Start: 08-25-2023 End: 02-21-2024 Alcohol intake Ex-drinker (finding) [facility] Work Phone: Start: 12-17-2022 End: 12-20-2023 Tobacco use panel [facility] Start: 1945 Sex Assigned At Not on file U [facility] Work Phone: Start: 08-15-2023 End: 02-21-2024 Exposure to SARS-CoV-2 (event) Not sure [facility] NEGATED: Highlighted row Denies Consumes alcohol occasionally Denies Consumes alcohol occasionally [facility] Work Phone: NEGATED: Highlighted rowStart: NINF History of tobacco use Passive smoker [facility] Work Phone: Functional Status Date Assessment Result Facility NEGATED: Highlighted row Functional performance Functional status health issues are not documented Disease [facility] Work Phone: Mental Status Date Assessment Result Facility NEGATED: Highlighted row Cognitive function [Interpretation] Cognitive status health issues are not documented Disease [facility] Work Phone: Clinical Notes 01-30-2020 to 02-09-2024 Rogers Bradley DO - 02/09/2024 10:30 AM EDTAssessment & Plan Note - Akanksha Millan MD - 12/20/2023 12:36 PM EDTAssessment & Plan Note - Akanksha Millan MD - 12/20/2023 12:36 PM EDT Note Date & Type Note Facility 02-09-2024 History of Present illness Narrative Subjective Patient ID: Kim Rocha is a 78 y.o. female who presents for Follow-up (IBS pt reports only 7 really bad days in the past year. ). HPI Kim is seen today in follow-up for IBS is doing well with probiotics and fiber along with daily antispasmodic. She admits she stopped taking the antispasmodic daily is using as needed in the last year she has had 7 to attacks and 34 events but none of that prevented her from getting to her planned agenda. She underwent colonoscopy last in [address] Garcia finding of tortuous colon no mass or polyp. Denies any rectal bleeding overall symptoms are 99% better Review of Systems Constitutional: Negative. HENT: Negative. Eyes: Negative. Respiratory: Negative. Cardiovascular: Negative. Gastrointestinal: Positive for abdominal pain and nausea. Endocrine: Negative. Genitourinary: Negative. Neurological: Negative. Hematological: Negative. Objective Physical Exam Vitals and nursing note reviewed. Constitutional: Appearance: Normal appearance. HENT: Head: Normocephalic. Mouth/Throat: Mouth: Mucous membranes are moist. Pharynx: Oropharynx is clear. Eyes: Conjunctiva/sclera: Conjunctivae normal. Pupils: Pupils are equal, round, and reactive to light. Cardiovascular: Rate and Rhythm: Normal rate and regular rhythm. Pulses: Normal pulses. Heart sounds: Normal heart sounds. Pulmonary: Effort: Pulmonary effort is normal. Breath sounds: Normal breath sounds. Abdominal: General: Abdomen is flat. Bowel sounds are normal. Palpations: Abdomen is soft. Musculoskeletal: General: Normal range of motion. Cervical back: Normal range of motion and neck supple. Skin: General: Skin is warm and dry. Neurological: General: No focal deficit present. Mental Status: She is alert and oriented to person, place, and time. Psychiatric: Behavior: Behavior normal. Assessment/Plan Diagnoses and all orders for this visit: Irritable bowel syndrome, unspecified type Continue diet medical therapy has on maintain fiber at present dose follow-up in as-needed basis yearly for medication refills Rogers Bradley DO 02/09/24 10:48 AM documented in this encounter [facility] Work Phone: 12-20-2023 Evaluation + Plan note Associated Problem(s): Hematuria Urine recheck normal. [facility] Work Phone: 12-20-2023 Evaluation + Plan note Associated Problem(s): Rheumatoid arthritis (CMS/HCC) Follows with floor hand on regular basis no longer on methotrexate due to concern about liver toxicity, joint pain seems to be stable currently rarely has to use prednisone. [facility] Work Phone: 12-20-2023 Miscellaneous Notes Associated Problem(s): Hematuria Urine recheck normal. Associated Problem(s): Rheumatoid arthritis (CMS/HCC) Follows with floor hand on regular basis no longer on methotrexate due to concern about liver toxicity, joint pain seems to be stable currently rarely has to use prednisone. Associated Problem(s): Irritable bowel syndrome (IBS) Continue with fiber and as needed dicyclomine. Associated Problem(s): Vitamin B12 deficiency Continue with replacement. Associated Problem(s): Pulmonary hypertension (CMS/HCC) Echocardiogram done last year seem to be stable, he has no signs or symptoms of active issues, blood pressure under good control no evidence of peripheral edema or shortness of breath with exertion. documented in this encounter [facility] Work Phone: 12-20-2023 Evaluation + Plan note Associated Problem(s): Irritable bowel syndrome (IBS) Continue with fiber and as needed dicyclomine. [facility] Work Phone: 12-20-2023 Evaluation + Plan note Associated Problem(s): Vitamin B12 deficiency Continue with replacement. [facility] Work Phone: 12-20-2023 Evaluation + Plan note Associated Problem(s): Pulmonary hypertension (CMS/HCC) Echocardiogram done last year seem to be stable, he has no signs or symptoms of active issues, blood pressure under good control no evidence of peripheral edema or shortness of breath with exertion. [facility] Work Phone: 12-20-2023 History of Present illness Narrative Subjective Reason for Visit: Kim Rocha is an 78 y.o. female here for a Medicare Wellness visit. Past Medical, Surgical, and Family History reviewed and updated in chart. Reviewed all medications by prescribing practitioner or clinical pharmacist (such as prescriptions, OTCs, herbal therapies and supplements) and documented in the medical record. HPI No headache, chest pain, shortness of breath, dizziness, lightheadedness, or edema Sees Cardiology and Rheumatology Had UTI 12/11, treated with Macrodantin Uses dicyclomine once a week on average, uses prior to eating out, bloating and cramping No more syncope issues Rare prednisone use, stopped taking methotrexate and folate in the past few months Patient Care Team: Akanksha Millan MD as PCP - General (Family Medicine) Rogers Bradley DO as PCP - [employer] Advantage PCP Review of Systems Objective Vitals: BP 130/70 Pulse 61 Ht 1.676 m (5' 6 ) Wt 64.9 kg (143 lb) SpO2 97% BMI 23.08 kg/m Physical Exam Assessment/Plan Problem List Items Addressed This Visit Hematuria Current Assessment & Plan Urine recheck normal. Relevant Orders Follow Up In Primary Care - Established POCT UA Automated manually resulted (Completed) Hyperlipemia, mixed Relevant Orders Follow Up In Primary Care - Established Comprehensive Metabolic Panel Lipid Panel Irritable bowel syndrome (IBS) Current Assessment & Plan Continue with fiber and as needed dicyclomine. Relevant Medications dicyclomine (Bentyl) 10 mg capsule Other Relevant Orders Follow Up In Primary Care - Established Pulmonary hypertension ([facility]) Current Assessment & Plan Echocardiogram done last year seem to be stable, he has no signs or symptoms of active issues, blood pressure under good control no evidence of peripheral edema or shortness of breath with exertion. Relevant Orders Follow Up In Primary Care - Established Comprehensive Metabolic Panel Rheumatoid arthritis (CMS/HCC) Current Assessment & Plan Follows with floor hand on regular basis no longer on methotrexate due to concern about liver toxicity, joint pain seems to be stable currently rarely has to use prednisone. Relevant Orders Follow Up In Primary Care - Established CBC and Auto Differential Comprehensive Metabolic Panel Vitamin B12 deficiency Current Assessment & Plan Continue with replacement. Relevant Orders Follow Up In Primary Care - Established Comprehensive Metabolic Panel Vitamin B12 Other Visit Diagnoses Routine general medical examination at health care facility - Primary Relevant Orders Follow Up In Primary Care - Established Fatigue, unspecified type Relevant Orders Follow Up In Primary Care - Established CBC and Auto Differential Comprehensive Metabolic Panel Vitamin B12 Breast cancer screening by mammogram Relevant Orders BI mammo bilateral screening tomosynthesis documented in this encounter [facility] Work Phone: 12-12-2023 History of Present illness Narrative Subjective Patient ID: Kim Rocha is a 78 y.o. female who presents for Blood in Urine (Hematuria , slight burning x last night and this morning, denies any symptoms now ). Kim comes to office for hematuria & burning w/ urination since last evening. + nocturia & freq last evening w/ clots (noticed them in the toilet), none this AM. No hx of renal stones. No fever/chilling. No abd pain. Sx better by this AM IO UA: leuk: moderate, blood: large, nit: negative, glucose: negative Stopped methotrexate/folic acid in Sep w/ floor hand CMP Sep 2023: bun 17, creat 0.82, gfr 72 Last UTI 2020 Review of Systems Constitutional: Negative for chills, fatigue and fever. Gastrointestinal: Negative for abdominal pain. Genitourinary: Positive for dysuria, frequency and hematuria. Negative for difficulty urinating and flank pain. Objective BP 126/76 Pulse 63 Ht 1.676 m (5' 6 ) Wt 65.5 kg (144 lb 5.8 oz) SpO2 98% BMI 23.30 kg/m Physical Exam Vitals reviewed. Cardiovascular: Rate and Rhythm: Normal rate and regular rhythm. Heart sounds: Normal heart sounds. Pulmonary: Effort: Pulmonary effort is normal. Breath sounds: Normal breath sounds. Abdominal: General: Abdomen is flat. Bowel sounds are decreased. Palpations: Abdomen is soft. Tenderness: There is no abdominal tenderness. There is no right CVA tenderness or left CVA tenderness. Assessment/Plan Problem List Items Addressed This Visit ICD-10-CM Hematuria R31.9 Relevant Orders POCT UA Automated manually resulted (Completed) Pulmonary hypertension (CMS/HCC) I27.20 Rheumatoid arthritis (CMS/[facility]) M06.9 Acute cystitis with hematuria - Primary N30.01 Relevant Medications nitrofurantoin, macrocrystal-monohydrate, (Macrobid) 100 mg capsule 1. Acute cystitis with hematuria nitrofurantoin, macrocrystal-monohydrate, (Macrobid) 100 mg capsule macrobid bid x5D; fantasma urine @ next OV end of mo. 2. Rheumatoid arthritis, involving unspecified site, unspecified whether rheumatoid factor present (CMS/[facility]) follows w/ rheumatology; + plaquenil. stopped MTX 3. Pulmonary hypertension (CMS/HCC) 4. Hematuria, unspecified type POCT UA Automated manually resulted macrobid bid x5D; fantasma urine @ next OV end of mo. documented in this encounter [facility] Work Phone: 12-12-2023 Instructions EWA Guillen - 12/12/2023 1:40 PM EDT Macrodantin 100mg twice a day x 5 days Encourage you to remain hydrated Bring urine sample with you to your next appointment with dr. Millan (end of month) documented in this encounter [facility] Work Phone: 09-27-2023 History of Present illness Narrative Subjective [...] 250 mg tablet documented in this encounter [facility] Work Phone: 08-25-2023 History of Present [...] . Had a similar episode back in 2016. No recurrent episodes since then. Denies any [...] mouth 1 (one) time each day. Ca-D3-mag bz-czzt-lew-nicole-bor 600 mg calcium- 20 mcg-50 mg tablet [...] mammo bilateral screening tomosynthesis Narrative: Interpreted By: STEPHON RENDON MD Patient Name: KIM ROCHA STUDY: Digital mammography screening with gabriela; 02/18/2023 11:07 am ACCESSION NUMBER(S): [id number] ORDERING CLINICIAN: AKANKSHA MILLAN INDICATION: Screening. COMPARISON: [...] Reid MD Advanced Heart Failure/Transplant Cardiology Cardio-Oncology [facility] documented in this encounter [facility] Work Phone: 01-30-2020 History of Present [...] which appeared to be monomorphic-Denies any palpitations. [facility] Work Phone: 01-30-2020 History of Present illness [...] photopsia in visual field (has been seeing wet process miller) [facility] Work Phone: Evaluation note Diagnosis Syncope and collapse- Primary Irregular heartbeat Unspecified cardiac dysrhythmia documented in this encounter [facility] Work Phone: Evaluation note* Diagnosis Irregular heartbeat Unspecified cardiac dysrhythmia Syncope and collapse documented in this encounter [facility] Work Phone: Evaluation note* Diagnosis Acute cough- Primary documented in this encounter [facility] Work Phone: Evaluation note* Diagnosis Acute cystitis with hematuria- Primary Rheumatoid arthritis, involving unspecified site, unspecified whether rheumatoid factor present ([facility]) Pulmonary hypertension ([facility]) Other chronic pulmonary heart diseases Hematuria, unspecified type documented in this encounter [facility] Work Phone: Evaluation note* Diagnosis Routine general medical examination at health care facility- Primary Routine general medical examination at a health care facility Rheumatoid arthritis with negative rheumatoid factor, involving unspecified site (CMS/HCC) Fatigue, unspecified type Hyperlipemia, mixed Mixed hyperlipidemia Pulmonary hypertension (CMS/HCC) Other chronic pulmonary heart diseases Vitamin B12 deficiency Other B-complex deficiencies Irritable bowel syndrome, unspecified type Hematuria, unspecified type Breast cancer screening by mammogram documented in this encounter [facility] Work Phone: Evaluation note* Diagnosis Irritable bowel syndrome, unspecified type- Primary documented in this encounter [facility] Work Phone: Evaluation note* Diagnosis Breast cancer screening by mammogram documented in this encounter [facility] Work Phone: History of Present illness [...] breath, dizziness, lightheadedness, or edema * Sees [employer] on a regular basis * Seen Cardiology, started on metoprolol for palpitations and pulmonary hypertension * was in ER this past fall in , had CT (negative evaluation), pain in abdomen and chest lasted4 hours and resolved * pain more in evening, better in AM, started again in the past week, had stopped taking dicyclomine * had scope in 2018 (normal) * had COVID in July * BM good, eating fiber, no constipation, soft stools * dicyclomine helps at times * arthritis stable pain [facility] Work Phone: History of Present illness Narrative* [...] breath, dizziness, lightheadedness, or edema * Sees [employer] on a regular basis * Seen Cardiology, started on metoprolol for palpitations and pulmonary hypertension * was in ER this past fall in , had CT (negative evaluation), pain in abdomen and chest lasted4 hours and resolved * pain more in evening, better in AM, started again in the past week, had stopped taking dicyclomine * had scope in 2018 (normal) * had COVID in July * BM good, eating fiber, no constipation, soft stools * dicyclomine helps at times * arthritis stable pain [facility] Work Phone: History of Present illness Narrative* [...] breath, dizziness, lightheadedness, or edema * Sees [employer] on a regular basis * Seen Cardiology, started on metoprolol for palpitations and pulmonary hypertension * was in ER this past fall in , had CT (negative evaluation), pain in abdomen and chest lasted4 hours and resolved * pain more in evening, better in AM, started again in the past week, had stopped taking dicyclomine * had scope in 2018 (normal) * had COVID in July * BM good, eating fiber, no constipation, soft stools * dicyclomine helps at times * arthritis stable pain [facility] Work Phone: History of Present illness Narrative* [...] breath, dizziness, lightheadedness, or edema * Sees [employer] on a regular basis * Seen Cardiology, started on metoprolol for palpitations and pulmonary hypertension * was in ER this past fall in , had CT (negative evaluation), pain in abdomen and chest lasted4 hours and resolved * pain more in evening, better in AM, started again in the past week, had stopped taking dicyclomine * had scope in 2018 (normal) * had COVID in July * BM good, eating fiber, no constipation, soft stools * dicyclomine helps at times * arthritis stable [facility] Work Phone: History of Present illness [...] a severely tortuous redundant left colon without polyps.[facility] [place] [address] Work Phone: Summary Purpose Family History No Family History Records Found Mother Name Dates Details Family history of heart fail ure(V17.49, Z82.49) Status:Active Family history of hypertensi on(V17.49, Z82.49) Status:Active Father Name Dates Details Family history of heart fail ure(V17.49, Z82.49) Status:Active Family history of hypertensi on(V17.49, Z82.49) Status:Active Brother Name Dates Details Family history of acute myoc ardial infarction(V17.3, Z82.49) Status:Active Family history of coronary a rtery disease(V17.3, Z82.49) Status:Active Mother Name Dates Details Family history of heart fail ure(V17.49, Z82.49) Status:Active Family history of hypertensi on(V17.49, Z82.49) Status:Active Father Name Dates Details Family [...] FoundDocuments on File Type Date Recorded Patient Client Integration Manager [facility] Power of Atty 12/17/2022 Documents on File Type Date Recorded Patient Client Integration Manager [facility] Power of Atty 12/17/2022 Chief Complaint [...] t been taking th IBguard as much. Paitent is taking Bentyl and a probiotic which helps.Pulm HTN Reason for Referral Specialty Diagnoses / Procedures Referred By Contac t Referred To Contact Cardiology Diagnoses Irregular heartbeat Syncope and collapse Procedures Transthoracic Echo (TTE) Complete TX ECHO TRANSTHORC R-T 2D W/WO M-MODE REC F-UP/LMTD TX DOP ECHOCARD COLOR FLOW VELOCITY MAPPING TX DOP ECHOCARD PULSE WAVE W/SPECTRAL F-UP/LMTD STD Milan Reid MD [address] [facility], [place] [phone] Referral ID Status Reason Start Date Expiration Date Visits Requested Visits Authorized [id number] Pending Review Perform Procedure 3 08/24/2024 1 1 Specialty Diagnoses / Procedures Referred By Contac t Referred To Contact Diagnoses Irregular heartbeat Procedures ECG 12 lead (Clinic Performed) Milan Reid MD [address] [facility], [address] [address] Referral ID Status Reason Start Date Expiration Date V isits Requested Visits Authorized [id number] Pending Review 08/25/2023 08/24/2024 1 1 Referral ID Status Reason Start Date Expiration Date Visits Requested Visits Authorized [id number] Authorized Perform Procedure 3 08/24/2024 1 1 Specialty Diagnoses / Procedures Referred By Contac t Referred To Contact Radiology Diagnoses Breast cancer screening by mammogram Procedures BI mammo bilateral screening tomosynthesis Akanksha Millan MD [address] [place] [address] Referral ID Status Reason Start Date Expiration Date Visits Requested Visits Authorized [id number] Authorized Perform Procedure 12/20/2023 12/19/2024 1 1 Specialty Diagnoses / Procedures Referred By Contac t Referred To Contact Primary Care Diagnoses Rheumatoid arthritis with negative rheumatoid factor, involving unspecified site (CMS/HCC) Fatigue, unspecified type Routine general medical examination at health care facility Hyperlipemia, mixed Pulmonary hypertension (CMS/HCC) Vitamin B12 deficiency Irritable bowel syndrome, unspecified type Hematuria, unspecified type Procedures Follow Up In Primary Care - Established Akanksha Millan MD [address] [place] [address] Referral ID Status Reason Start Date Expiration Date V isits Requested Visits Authorized [id number] Authorized 12/20/2023 12/19/2024 1 1 Additional Source Comments INFORMATION SOURCE (unrecogn ized section and content) DATE CREATED AUTHOR 03/21/2018 [facility] DATE CREATED AUTHOR AUTHOR'S ORGANIZ ATION 02/14/2019 [facility] DATE CREATED AUTHOR AUTHOR'S ORGANIZ ATION 08/26/2021 [facility] DATE CREATED AUTHOR AUTHOR'S ORGANIZ ATION 08/27/2022 [employer] DATE CREATED AUTHOR AUTHOR'S ORGANIZ ATION 02/19/2023 [facility] DATE CREATED AUTHOR AUTHOR'S ORGANIZ ATION 04/12/2024 [facility] DATE CREATED AUTHOR AUTHOR'S ORGANIZ ATION 05/07/2024 [facility] DATE CREATED AUTHOR AUTHOR'S ORGANIZ ATION 05/07/2024 [facility] DATE CREATED AUTHOR AUTHOR'S ORGANIZ ATION 06/11/2024 [facility] Reason for Visit (unrecogniz ed section and content) Reason Comments 1 year f/u Specialty Diagnoses / Procedures Referred By Contac t Referred To Contact Diagnoses Irregular heartbeat Procedures ECG 12 lead (Clinic Performed) Milan Reid MD [address] [facility], [facility] [address] [place] [phone] Referral ID Status Reason Start Date Expiration Date V isits Requested Visits Authorized [id number] Pending Review 08/25/2023 08/24/2024 1 1 Specialty Diagnoses / Procedures Referred By Contac t Referred To Contact Cardiology Diagnoses Irregular heartbeat Syncope and collapse Procedures Transthoracic Echo (TTE) Complete TX ECHO TRANSTHORC R-T 2D W/WO M-MODE REC F-UP/LMTD TX DOP ECHOCARD COLOR FLOW VELOCITY MAPPING TX DOP ECHOCARD PULSE WAVE W/SPECTRAL F-UP/LMTD STD Milan Reid MD [address] [facility], [facility] [address] [place] [phone] Referral ID Status Reason Start Date Expiration Date Visits Requested Visits Authorized [id number] Authorized Perform Procedure 3 08/24/2024 1 1 Reason Comments Sore Throat X1wk, cough, RT Uppe r Back Pain Reason Comments Blood in Urine Hematuria , slight b urning x last night and this morning, denies any symptoms now Reason Comments Medicare Annual Wellness Visit Subsequen t Specialty Diagnoses / Procedures Referred By Contac t Referred To Contact Primary Care Diagnoses Rheumatoid arthritis with negative rheumatoid factor, involving unspecified site ([facility]) Fatigue, unspecified type Procedures Follow Up In Primary Care Akanksha Millan MD [address] [place] [address] Referral ID Status Reason Start Date Expiration Date Visits Re quested Visits Authorized [id number] Closed 12/17/2022 06/15/2023 1 1 Reason Comments Follow-up IBS pt reports only 7 really bad days in the past year. Specialty Diagnoses / Procedures Referred By Bere t Referred To Contact Radiology Diagnoses Breast cancer screening by mammogram Procedures BI mammo bilateral screening tomosynthesis Akanksha Millan MD [address] [place] [address] Referral ID Status Reason Start Date Expiration Date Visits Requested Visits Authorized [id number] Authorized Perform Procedure 12/20/2023 12/19/2024 1 1 Care Teams (unrecognized sec tion and content) [employer] Relationship Specialty Start Date End Date Akanksha Millan MD PCP - General 05/29/19 Rogers Bradley DO [address] [facility], [place] [phone] PCP - [employer] Medicare [employer]vantage PCP 09/26/22 [employer] Relationship Specialty Start Date End Date Rogers Bradley DO [address] [facility], [place] [phone] PCP - [employer] Medicare Advantage PCP 09/26/22 Akanksha Millan MD [address] [place] [address] PCP - General Family Medicine 08/31/23 [employer] Relationship Specialty Start Date End Date Rogers Bradley DO [address] [facility], [address] [place] [address] PCP - [employer] Medicare Advantage PCP 09/26/22 Akanksha Millan MD [address] [place] [phone] PCP - General Family Medicine 08/31/23 [employer] Relationship Specialty Start Date End Date Rogers Bradley DO [address] [facility], [address] [place] [phone] PCP - [employer] Medicare Advantage PCP 09/26/22 Akanksha Millan MD [address] [place] [phone] PCP - General Family Medicine 08/31/23 [employer] Relationship Specialty Start Date End Date Rogers Bradley DO [address] [facility], [address] [place] [address] PCP - [employer] Medicare Advantage PCP 09/26/22 Akanksha Millan MD [address] [place] [address] PCP - General Family Medicine 08/31/23 [employer] Relationship Specialty Start Date End Date Rogers Bradley DO [address] [facility], [address] [place] [address] PCP - [employer] Advantage PCP 09/26/22 Akanksha Millan MD [address] [facility] [place] [address] PCP - General Family Medicine 08/31/23 FOR [...] BE BASED ON THE PRIMARY CLINICAL RECORDS. [email or web address] [facility]. provides no warranty or guarantee of the accuracy or completeness of information in this document.
== END | disposition home or self-care (01) ==
LOC: MTLAB 13:29
PROVIDERS: PCP Family Medicine; Referring Provider Internal Medicine Rheumatology; Visit Provider Internal Medicine Rheumatology
DX: M06.00 Rheumatoid arthritis without rheumatoid factor, unspecified site (principal); M19.041 Primary osteoarthritis, right hand; Z79.899 Other long term (current) drug therapy
CPT/HCPCS: 36415; 80053; 85025

== ENCOUNTER → 2024-10-18 | Outpatient (CLI) | payer MEDICARE, SELFPAY ==
[2024-10-18 15:05] LABS: Absolute Lymphocyte Count 1.14 X10^3/uL (0.83-4.51); Absolute Neutrophil Count 2.9 X10^3/uL (2.0-7.7); Basophil# 0.03 X10^3/uL; Basophil% 0.6 % (0-1); Eosinophil# 0.21 X10^3/uL; Eosinophils% 4.4 % (0-5); Hematocrit 37.8 % (37-47); Hemoglobin 12.3 g/dL (12.0-15.0); Lymphocyte # 1.14 X10^3/ul (0.83-4.51); Lymphocyte % 23.7 % (19-41); Mean Corp Hgb Conc 32.5 g/dL (32-36); Mean Corpuscular Hgb 31.1 pg (27.0-32.0); Mean Corpuscular Volume 95.7 fL (81-99); Mean Platelet Vol. 10.1 fl (6.2-12.0); Monocyte# 0.49 X10^3/uL; Monocyte% 10.2 % (0-10); NRBC Flagged by Analyzer 0 % (0-5); Neutrophil # 2.92 X10^3/uL (2.7-7.7); Neutrophil % 60.7 % (47-70); Platelet Count 187 K/mm3 (150-450); RBC Distribution Width CV 13.3 % (11.6-14.6); RBC Distribution Width SD 46.6 fl (35.1-43.9); Red Blood Count 3.95 M/mm3 (4.2-5.4); White Blood Count 4.8 K/mm3 (4.4-11.0)
[2024-10-18 15:35] LABS: ALB/GLOB Ratio 1.1 RATIO (0.9-2.4); AST(SGOT) 39 U/L (15-37); Alanine Aminotransfer ALT/SGPT 42 U/L (13-56); Albumin, Serum 3.9 g/dL (3.2-5.0); Alkaline Phosphatase 45 U/L (45-117); Anion Gap 3 (5-15); BUN 27 mg/dL (7-18); BUN/Creat Ratio 24.8 RATIO (10-20); Calcium,Total 9.7 mg/dL (8.5-10.1); Chloride 102 mmol/L (98-107); Creatinine, Serum 1.09 mg/dL (0.55-1.02); EST Glomerular Filtration Rate 51 mL/min (>60); Est Glom Filt Rate - Afr Amer 62 mL/min (>60); Globulin 3.5 g/dL (2.2-4.2); Glucose 94 mg/dL (74-106); Potassium 4.2 mmol/L (3.5-5.1); Protein, Total 7.4 g/dL (6.4-8.2); Sodium Level 135 mmol/L (136-145)
== END | disposition home or self-care (01) ==
LOC: MTLAB 13:26
PROVIDERS: PCP Family Medicine; Referring Provider Internal Medicine Rheumatology; Visit Provider Internal Medicine Rheumatology
DX: M06.00 Rheumatoid arthritis without rheumatoid factor, unspecified site (principal); M19.041 Primary osteoarthritis, right hand; Z79.899 Other long term (current) drug therapy
CPT/HCPCS: 36415; 80053; 85025

== ENCOUNTER → 2025-02-06 | Outpatient (CLI) | payer MEDICARE, SELFPAY ==
[2025-02-06 15:31] LABS: Absolute Lymphocyte Count 1.36 X10^3/uL (0.83-4.51); Absolute Neutrophil Count 1.9 X10^3/uL (2.0-7.7); Basophil# 0.04 X10^3/uL; Eosinophil# 0.24 X10^3/uL; Hematocrit 37.5 % (37-47); Hemoglobin 12.4 g/dL (12.0-15.0); Lymphocyte # 1.36 X10^3/ul (0.83-4.51); Lymphocyte % 33.7 % (19-41); Mean Corp Hgb Conc 33.1 g/dL (32-36); Mean Corpuscular Hgb 31.7 pg (27.0-32.0); Mean Corpuscular Volume 95.9 fL (81-99); Mean Platelet Vol. 10.4 fl (6.2-12.0); Monocyte# 0.51 X10^3/uL; Monocyte% 12.7 % (0-10); NRBC Flagged by Analyzer 0 % (0-5); Neutrophil # 1.86 X10^3/uL (2.7-7.7); Neutrophil % 46.1 % (47-70); POSITIVE MORPHOLOGY YES; Platelet Count 187 K/mm3 (150-450); RBC Distribution Width CV 13.8 % (11.6-14.6); RBC Distribution Width SD 48.1 fl (35.1-43.9); Red Blood Count 3.91 M/mm3 (4.2-5.4)
[2025-02-06 15:34] LABS: Differential Indicated SCAN CRITERIA MET
[2025-02-06 16:50] LABS: ALB/GLOB Ratio 1.4 RATIO (0.9-2.4); AST(SGOT) 45 U/L (<=31); Alanine Aminotransfer ALT/SGPT 34 U/L (<=34); Albumin, Serum 4.2 g/dL (3.4-4.8); Alkaline Phosphatase 47 U/L (35-104); Anion Gap 9 (5-15); BUN 19 mg/dL (4-19); BUN/Creat Ratio 21.3 RATIO (10-20); Calcium,Total 9.7 mg/dL (7.6-11.0); Carbon Dioxide 26.1 mmol/L (21.0-32.0); Chloride 98 mmol/L (98-108); EST Glomerular Filtration Rate 65 (>60); Glucose 82 mg/dL (70-99); Potassium 4.5 mmol/L (3.3-5.1); Protein, Total 7.1 g/dL (5.9-8.4); Sodium Level 133 mmol/L (133-145); Total Bilirubin 0.32 mg/dL (0.00-1.30)
[2025-02-06 19:36] LABS: Platelet Estimate ADEQUATE (ADEQ)
== END | disposition home or self-care (01) ==
LOC: MTLAB 12:56
PROVIDERS: PCP Family Medicine; Referring Provider Internal Medicine Rheumatology; Visit Provider Internal Medicine Rheumatology
DX: M06.00 Rheumatoid arthritis without rheumatoid factor, unspecified site (principal); M19.041 Primary osteoarthritis, right hand; Z79.899 Other long term (current) drug therapy
CPT/HCPCS: 36415; 80053; 85025

== ENCOUNTER → 2025-04-24 | Outpatient (CLI) | payer MEDICARE, SELFPAY ==
[2025-04-24 16:07] LABS: Hematocrit 37.3 % (37-47); Hemoglobin 12.0 g/dL (12.0-15.0); Immature Granulocytes Count 0.020 X10^3/uL (0.0-0.0); Mean Corp Hgb Conc 32.2 g/dL (32-36); Mean Corpuscular Volume 98.4 fL (81-99); Mean Platelet Vol. 10.9 fl (6.2-12.0); NRBC Flagged by Analyzer 0 % (0-5); Platelet Count 186 K/mm3 (150-450); RBC Distribution Width CV 13.9 % (11.6-14.6); RBC Distribution Width SD 50.0 fl (35.1-43.9); Red Blood Count 3.79 M/mm3 (4.2-5.4); White Blood Count 4.4 K/mm3 (4.4-11.0)
[2025-04-24 16:19] LABS: AST(SGOT) 37 U/L (<=31); Alanine Aminotransfer ALT/SGPT 33 U/L (<=34); Albumin, Serum 4.2 g/dL (3.4-4.8); Alkaline Phosphatase 39 U/L (35-104); Anion Gap 10 (5-15); BUN 22 mg/dL (4-19); BUN/Creat Ratio 22.1 RATIO (10-20); Calcium,Total 9.1 mg/dL (7.6-11.0); Carbon Dioxide 26.6 mmol/L (21.0-32.0); Chloride 101 mmol/L (98-108); Globulin 2.6 g/dL (2.2-4.2); Glucose 79 mg/dL (70-99); Potassium 4.0 mmol/L (3.3-5.1)
== END | disposition home or self-care (01) ==
LOC: MTLAB 11:33
PROVIDERS: PCP Family Medicine; Referring Provider Internal Medicine Rheumatology; Visit Provider Internal Medicine Rheumatology
DX: M06.00 Rheumatoid arthritis without rheumatoid factor, unspecified site (principal); M19.041 Primary osteoarthritis, right hand; Z79.899 Other long term (current) drug therapy
CPT/HCPCS: 36415; 80053; 85025

== ENCOUNTER → 2025-05-23 | Outpatient (CLI) | payer MEDICARE, SELFPAY ==
--- NOTE | 2025-05-23 09:32 | RAD_ITS ---
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 FINDINGS: BONES: No acute fracture or focal osseous lesion. JOINTS: No significant joint effusion. No dislocation. Moderately severe medial compartment narrowing with subchondral sclerosis and marginal osteophytes. SOFT TISSUES: The soft tissues are unremarkable. RAD/Knee 4 or More Views IMPRESSION: 1. No acute osseous abnormality. 2. Moderately severe medial compartment osteoarthrosis. Reading Location: [id number]
--- NOTE | 2025-05-23 09:32 | RAD_ITS ---
PROCEDURE: KNEE 4 OR MORE VIEWS 05/23/2025 REASON FOR EXAM: RA TECHNIQUE: KNEE 4 OR MORE VIEWS Laterality: Left COMPARISON: None. FINDINGS: BONES: No acute fracture or focal osseous lesion. JOINTS: Small to moderate-sized suprapatellar joint effusion. No dislocation. Minimal narrowing in the medial compartment. SOFT TISSUES: The soft tissues are unremarkable. RAD/Knee 4 or More Views IMPRESSION: 1. No acute osseous abnormality. 2. Mild-moderate knee joint effusion. Reading Location: [id number]
== END | disposition home or self-care (01) ==
LOC: MTRAD 09:29
PROVIDERS: PCP Family Medicine; Referring Provider Internal Medicine Rheumatology; Visit Provider Internal Medicine Rheumatology
DX: M06.00 Rheumatoid arthritis without rheumatoid factor, unspecified site (principal); M19.041 Primary osteoarthritis, right hand; M19.042 Primary osteoarthritis, left hand; Z79.899 Other long term (current) drug therapy
CPT/HCPCS: 73564

== ENCOUNTER → 2025-08-02 | Outpatient (CLI) | payer MEDICARE, SELFPAY ==
[2025-08-02 12:19] LABS: Hematocrit 35.8 % (37-47); Hemoglobin 11.9 g/dL (12.0-15.0); Immature Granulocytes Count 0.010 X10^3/uL (0.0-0.0); Mean Corp Hgb Conc 33.2 g/dL (32-36); Mean Corpuscular Volume 96.5 fL (81-99); Mean Platelet Vol. 9.8 fl (6.2-12.0); NRBC Flagged by Analyzer 0 % (0-5); Platelet Count 207 K/mm3 (150-450); RBC Distribution Width CV 14.0 % (11.6-14.6); RBC Distribution Width SD 48.6 fl (35.1-43.9); Red Blood Count 3.71 M/mm3 (4.2-5.4); White Blood Count 4.5 K/mm3 (4.4-11.0)
[2025-08-02 12:59] LABS: AST(SGOT) 44 U/L (<=31); Alanine Aminotransfer ALT/SGPT 35 U/L (<=34); Albumin, Serum 4.1 g/dL (3.4-4.8); Alkaline Phosphatase 42 U/L (35-104); Anion Gap 9 (5-15); BUN 23 mg/dL (4-19); BUN/Creat Ratio 28.4 RATIO (10-20); Calcium,Total 8.9 mg/dL (7.6-11.0); Carbon Dioxide 27.0 mmol/L (21.0-32.0); Chloride 99 mmol/L (98-108); Globulin 2.7 g/dL (2.2-4.2); Glucose 80 mg/dL (70-99); Potassium 4.2 mmol/L (3.3-5.1)
== END | disposition home or self-care (01) ==
LOC: MTLAB 11:09
PROVIDERS: PCP Family Medicine; Referring Provider Internal Medicine Rheumatology; Visit Provider Internal Medicine Rheumatology
DX: M06.00 Rheumatoid arthritis without rheumatoid factor, unspecified site (principal); Z79.899 Other long term (current) drug therapy; M19.041 Primary osteoarthritis, right hand
CPT/HCPCS: 36415; 80053; 85025

== ENCOUNTER 2025-08-18 20:20 | Emergency (ER) | payer MEDICARE, SELFPAY ==
[2025-08-18] VITALS (8 sets, daily range): BP systolic 121–188; BP diastolic 68–101; PULSE 78–156; RESP 12–37; TEMP 36.3; O2SAT 95–100; BMI 23.1
--- NOTE | 2025-08-18 20:37 | EKG12_ITS ---
Test Reason : PALPS Blood Pressure : */* mmHG Vent. Rate : 166 BPM Atrial Rate : * BPM P-R Int : * ms QRS Dur : 124 ms QT Int : 276 ms P-R-T Axes : * 64 -1 degrees QTcB Int : 458 ms Critical Test Result: High HR Atrial fibrillation with rapid ventricular response Right bundle branch block Abnormal ECG Confirmed by DEDRA GUTIERREZ, ALEIDA ([id number]), mapping editor NAZIA ROCA ([id number]) on 08/19/2025 1:10:17 PM Referred By: Confirmed By: ALEIDA COLMENARES MD
--- OUTSIDE RECORDS SUMMARY | 2025-08-18 20:47 | XMS RPT_ITS | CCD ---
Author Organization [facility] Care Team Providers Care Sales Support Administrator Name Role Phone Akanksha Millan Unavailable Unavailable Akanksha Millan Unavailable Unavailable Akanksha Millan Unavailable Unavailable Unavailable IAN, DR DANIAL Ellis Attending Unavaila ble IAN, DR DANIAL Ellis Primary Care Unavaila ble IAN, DR DANIAL Ellis Admitting Unavaila ble Unavailable Unavailable Colton, Dr. Akanksha Wyman Referring Unav ailable Colton, Dr. Akanksha Wyman Attending Unav ailable Colton, Dr. Akanksha Wyman Primary Care Unav ailable Akanksha Millan MD Primary Care Provider [phone] Rogers Bradley DO Unavailable Akanksha Millan MD Primary Care Provider [phone] AKANKSHA MILLAN Primary Care Unavailable AKANKSHA MILLAN Primary Care Unavailable AKANKSHA MILLAN Primary Care Unavailable AKANKSHA MILLAN Primary Care Unavailable Akanksha Millan MD Primary Care Provider [phone] Akanksha Millan MD Primary Care Provider [phone] Bernard Bradley DOe R Unavailable Akanksha Millan MD Unavailable Akanksha Millan MD Primary Care Provider [phone] Akanksha Millan MD Unavailable [phone] AKANKSHA MILLAN Referring Unavailable AKANKSHA MILLAN Primary Care Unavailable AKANKSHA MILLAN Referring Unavailable MILLAN, CHRISTOPHER D Primary Care Unavailable MILLAN, CHRISTOPHER D Primary Care Unavailable ASHLEY MILLER Attending Unavailable MILLAN, CHRISTOPHER D Primary Care Unavailable LORENZA CARVER Attending Unavailable LORENZA CARVER Referring Unavailable MILLAN, CHRISTOPHER D Primary Care Unavailable FRANKLIN, MILAN Referring Unavailable MILLAN, CHRISTOPHER D Primary Care Unavailable ROYAL, AILEEN S Referring Unavailable MILLAN, CHRISTOPHER D Primary Care Unavailable Millan , Dr. Mike Primary Care Provider Davian GUTIERREZ, Dr. Davidson Attending Provider Davian GUTIERREZ, Dr. Davidson Referring Provider Colton GUTIERREZ, Dr. Mike Primary Care Provider [phone] Davian GUTIERREZ, Dr. Davidson Attending Provider Davian GUTIERREZ, Dr. Davidson Referring Provider MILLAN, CHRISTOPHER D Attending Unavailable MILLAN, CHRISTOPHER D Primary Care Unavailable MILLAN, CHRISTOPHER D Attending Unavailable MILLAN, CHRISTOPHER D Referring Unavailable MILLAN, CHRISTOPHER D Primary Care Unavailable FRANKLIN, MILAN Attending Unavailable MILLAN, CHRISTOPHER D Primary Care Unavailable ROYAL, AILEEN S Attending Unavailable MILLAN, CHRISTOPHER D Primary Care Unavailable DAWSON MORALEZ Attending Unavailable MILLAN, CHRISTOPHER D Primary Care Unavailable ROGERS BRADLEY Attending Unavailable MILLAN, CHRISTOPHER D Primary Care Unavailable Vellanki, Lety Referring Unavailable Vellanki, Lety Attending Unavailable Millan, Rashid Primary Care Unavailable Vellanki, Lety Attending Unavailable Vellanki, Lety Referring Unavailable Millan, Rashid Primary Care Unavailable Vellanki, Lety Referring Unavailable Millan, Rashid Primary Care Unavailable Vellanki, Lety Attending Unavailable Vellanki, Lety Referring Unavailable Vellanki, Lety Attending Unavailable Millan, Rashid Primary Care Unavailable Vellanki, Lety Referring Unavailable Vellanki, Lety Attending Unavailable Millan, Rashid Primary Care Unavailable Allergies Allergy Classification Reported Allergen(s) Allergy Type Date of Onset Reaction(s) Facility Acetaminophen / HYDROcodone (3 sources) Acetaminophen / HYDROcodone; Translations: [Vicodin TABS] Drug Allergy [facility] Corporate Work Phone: Amoxicillin / Clavulanate (3 sources) Amoxicillin / Clavulanate; Translations: [Augmentin] Drug Allergy [facility] Work Phone: NSAIDs (3 sources) Diclofenac; Translations: [diclofenac] Drug Allergy [facility] Corporate Work Phone: Opioid Agonists (3 sources) traMADol; Translations: [tramadol] Drug Allergy [facility] Corporate Work Phone: Penicillins (antibiotic) (3 sources) Amoxicillin; Translations: [Amoxil] Drug Allergy [facility] Work Phone: (20 sources) Acetaminophen / HYDROcodone; Translations: [Vicodin TABS] Drug Allergy 10-30-19 [facility]: (12 sources) Amoxicillin; Translations: [Amoxil] [facility]ergy [facility] Work Phone: (12 sources) Amoxicillin / Clavulanate; Translations: [Augmentin] [facility] Work Phone: (20 sources) Diclofenac; Translations: [diclofenac] Drug Allergy 10-30-19 Other [facility] Work Phone: (20 sources) traMADol; Translations: [tramadol] Drug Allergy 06-06-20 [facility] (13 sources) Acetaminophen Drug Allergy 06-06-20 [facility] (14 sources) Amoxicillin; Translations: [amoxicillin trihydrate] Drug Allergy 06-06-20 [facility] (14 sources) Diclofenac; Translations: [diclofenac sodium] Drug Allergy 06-06-20 Nausea/Vom/Diarrh [facility] (14 sources) HYDROcodone; Translations: [hydrocodone bitartrate] Drug Allergy 06-06-20 [facility] (14 sources) potassium clavulanate; Translations: [potassium clavulanate] Allergy to substance 06-06-20 [facility] (20 sources) Amoxicillin; Translations: [AMOXICILLIN] Drug Allergy 10-30-19 [facility] (20 sources) Amoxicillin / Clavulanate; Translations: [AMOXICILLIN-POT CLAVULANATE] Drug Allergy 10-30-19 [facility] Work Phone: (3 sources) Acetaminophen / HYDROcodone; Translations: [HYDROCODONE-ACET AMINOPHEN] Drug Allergy 10-30-19 [facility] (1 source) Acetaminophen Drug Allergy 04-05-20 24 [facility] Medications Current Medications Medication Drug Class(es) Dates Sig (Normalized) Sig (Original) acetaminophen 325 mg / oxyCODONE hydrochloride 5 mg oral tablet (4 sources) Opioid Agonist Start: 04-10-2024 take 1 tablet by mouth every four hours for pain oxyCODONE-acetamin ophen (Percocet) 5-325 mg tablet Indications: Acute Lyme disease , Primary osteoarthritis, unspecified site Take 1 tablet by mouth every 4 hours if needed for severe pain (7 - 10). 21 tablet 04/10/2024 Active Start: 04-05-2024 take 1 tablet by joann th every eight hours as needed for pain Oxycodone-Acetaminophen (Percocet) 5-325 mg tablet Active 1 {tbl} PO Q8H as needed for pain 10 3 0 April 05, 2024 Low back pain Low back pain, unspecified aspirin 81 mg delayed release oral tablet (20 sources) Platelet Aggregation Inhibitor, Nonsteroidal Anti-inflammatory Drug Start: 08-23-2013 take 1 tablet by mouth once daily Aspirin 81 MG tablet Active 81 mg PO DAILY@0800 August 23, 2013 1:00am Aspirin 81 MG TA BS TAKE 1 [...] tablet 0 09/27/2023 10/02/2023 Active bifidobacterium animalis [id number] unt / lactobacillus acidophilus [id number] unt oral capsule (20 sources) Start: 12-02-2020 L. acidophilus/Bifid . animalis 32 billion cell capsule Take by mouth. 12/02/2020 Active Ca-D3-mag rk-uwqc-spr-nicole-bor 600 mg calcium- 20 mcg-50 mg tablet (20 sources) Start: 12-05-2019 take 1 tablet by mouth at bedtime Ca-D3-mag yc-pwtp-hvx-nicole- bor 600 mg calcium- 20 mcg-50 mg tablet Take 1 tablet by mouth in the morning and at bedtime. 12/05/2019 Active Start: 12-05-2019 take 1 tablet by joann th at bedtime Ca-D3-mag fm-acyc-qxq-nicole-bor 600 mg calcium- 20 mcg-50 mg tablet Take 1 tablet by mouth in the morning and at bedtime. 0 12/05/2019 Active calcium carbonate 1500 mg / cholecalciferol 0.01 mg oral tablet (13 sources) Vitamin D Start: 08-23-2013 Calcium Carbonate-Vitamin D3 (Calcium 600 + Vit D Tablet) 1 EACH tablet Active 1 NMA PO DAILY August 23, 2013 1:00am diazePAM 5 mg oral tablet (10 sources) Benzodiazepine Start: 09-05-2022 take 1 tablet by mouth three times daily Diazepam (Valium) 5 mg tablet Active 5 mg PO THREE TIMES A DAY 5 0 September 05, 2022 1:00am Benign paroxysmal positional vertigo Benign paroxysmal vertigo, unspecified ear dicyclomine hydrochloride 10 mg oral capsule (20 sources) Anticholinergic Start: 12-20-2023 End: 01-19-2025 take 1 capsule by mouth four times daily dicyclomine (Bentyl) 10 mg capsule Indications: Irritable bowel syndrome, unspecified type Take 1 capsule (10 mg) by mouth 4 times a day. 120 capsule 12/20/2024 01/19/2025 Active Start: 06-06-2021 Dicyclomine 20 mg tablet Active 10 mg PO NEEDED as needed for ibs June 06, 2021 12:00am Start: 06-06-2021 Dicyclomine Ac tive 10 MG PO NEEDED June 06, 2021 12:00am folic acid 1 mg oral tablet (20 sources) Start: 06-06-2021 take 1 tablet by mouth once daily Folic Acid 1 mg Tablet Active 1 mg PO DAILY June 06, 2021 12:00am End: 12-20-2023 take 1 tablet by mouth twice daily folic acid (Folvite) 1 mg tablet Take 1 tablet (1 mg) by mouth 2 times a day. 0 12/20/2023 Discontinued (Med List Cleanup) hydroxychloroquine sulfate 200 mg oral tablet (20 sources) Antimalarial, Antirheumatic Agent Start: 08-23-2013 take 1 tablet by mouth twice daily at mealtime Hydroxychloroquine 200 MG tablet Active 200 mg PO TWICE DAILY WITH MEALS August 23, 2013 1:00am take 1 tablet by mouth once henny y Plaquenil 200 MG Oral Tablet TAKE 1 TABLET DAILY. Refills: 0 Active meclizine hydrochloride 12.5 mg oral tablet (13 sources) Antiemetic Start: 06-06-2021 take 1 tablet by mouth twice daily as needed Meclizine 12.5 mg Tablet Active 12.5 mg PO TWICE A DAY as needed for Vertigo June 06, 2021 12:00am meloxicam 15 mg oral tablet (20 sources) Nonsteroidal Anti-inflammatory Drug Start: 08-23-2013 End: 12-17-2022 take 1 tablet by mouth once daily as needed for pain Meloxicam (Mobic) 15 MG tablet Active 15 mg PO DAILY NEEDED as needed for Pain August 23, 2013 1:00am meloxicam (Mobic ) 15 mg tablet Take 0.5 tablets (7.5 mg) by mouth if needed. Active methotrexate 2.5 mg oral tablet (20 sources) Folate Analog Metabolic Inhibitor Start: 06-06-2021 take 1 tablet by mouth every week Methotrexate Sodium 2.5 mg Tablet Active 2.5 mg PO EVERY WEEK June 06, 2021 12:00am End: 12-12-2023 take 6 tablets by mouth every week methotrexate (Trexall) 2.5 mg tablet Take 6 tablets (15 mg total) by mouth 1 (one) time per week. Follow directions carefully, and ask to explain any part you do not understand. Take exactly as directed. Take with folic acid. Active take 5 tablets by mo ut every week methotrexate (Trexall) 2.5 mg tablet Take 5 tablets (12.5 mg total) by mouth 1 (one) time per week. Follow directions carefully, and ask to explain any part you do not understand. Take exactly as directed. Take with folic acid. Active metoprolol tartrate 25 mg oral tablet (20 sources) beta-Adrenergic Tommy Start: 11-26-2024 End: 11-26-2025 take 1 tablet by mouth twice daily metoprolol tartrate (Lopressor) 25 mg tablet Indications: Pulmonary hypertension (Multi) Take 1 tablet (25 mg) by mouth 2 times a day. 180 tablet 3 11/26/2024 11/26/2025 Active Start: 11-12-2023 take 1 tablet by joann th twice daily metoprolol tartrate (Lopressor) 25 mg tablet Indications: Pulmonary hypertension (Multi) Take 1 tablet (25 mg) by mouth 2 times a day. 180 tablet 3 11/12/2023 Active Start: 06-06-2021 take 1 tablet by joann th twice daily Metoprolol Succinate 25 mg Tablet Extended Release 24 Hr Active 25 mg PO TWICE A DAY June 06, 2021 12:00am Start: 03-02-2021 take 1 tablet by joann th twice daily metoprolol tartrate (Lopressor) 25 mg tablet Take 1 tablet (25 mg) by mouth 2 times a day. 0 03/02/2021 Active multivitamin tablet (20 sources) Start: 12-05-2019 take 1 tablet by mouth once daily multivitamin tablet Take 1 tablet by mouth once daily. 12/05/2019 Active Start: 12-05-2019 take 1 tablet by joann th once daily multivitamin tablet Take 1 tablet by mouth once daily. 0 12/05/2019 Active Multivitamin With Folic Acid (Thera) 1 TABLET tablet (13 sources) Start: 08-23-2013 take 1 tablet by mouth once daily Multivitamin With Folic Acid (Thera) 1 TABLET tablet Active 1 TABLET PO DAILY August 23, 2013 4:02pm Start: 08-23-2013 take 1 tablet by joann th once daily Multivitamin With Folic Acid (Thera) 1 TABLET tablet Active 1 {tbl} PO DAILY August 23, 2013 1:00am Start: 08-23-2013 take 1 tablet by joann th once daily Multivitamin With Folic Acid (Thera) 1 TABLET tablet Active 1 TABLET PO DAILY August 23, 2013 12:00am Start: 08-23-2013 take 1 tablet by joann th once daily Multivitamin With Folic Acid (Thera) 1 TABLET tablet Active 1 TABLET PO DAILY August 23, 2013 1:00am nitrofurantoin, macrocrystals 25 mg / nitrofurantoin, monohydrate 75 mg oral capsule (2 sources) Nitrofuran Antibacterial Start: 12-12-2023 End: 12-20-2023 take 1 capsule by mouth twice daily nitrofurantoin, macrocrystal-monohydrate, (Macrobid) 100 mg capsule Indications: Acute cystitis with hematuria Take 1 capsule (100 mg) by mouth 2 times a day for 5 days. 10 capsule 0 12/12/2023 12/20/2023 Discontinued (Therapy completed) psyllium 400 mg oral capsule (20 sources) take 5 capsules by mouth twice daily psyllium (Metamucil) 0.4 gram capsule Take 5 capsules by mouth 2 times a day. Drink with 8 oz water (=1 tsp powder in 8 oz liquid) Active take 5 capsules by mouth once da kleber psyllium (Metamucil) 0.4 gram capsule Take 5 capsules by mouth once daily. 0 Active pyridoxine (3 sources) Start: 08-23-2013 Pyridoxine (Vi tamin B6) 50 MG tablet Active 100 mg PO DAILY August 23, 2013 1:00am 1000 ml sodium chloride 9 mg/ml injection (2 sources) Start: 03-28-2024 End: 03-28-2024 take 250 mL intravenously every hour 250 mL/hr, intravenous, Continuous, Starting on Tue03/28/24 at 1055 vitamin b6 100 mg oral tablet (20 sources) Start: 12-05-2019 take 1 tablet by [facility] once daily pyridoxine (Vitamin B-6) 100 mg tablet Take 1 tablet (100 mg) by mouth once daily. 12/05/2019 Active Start: 12-05-2019 Vitamin B-6 10 0 MG Oral Tablet Quantity: 0 Refills: 0 Ordered: 05-Dec-2019 DO Start : 05-Dec-2019 Active Start: 08-23-2013 take 100 mg by mouth once henny y Pyridoxine (Vitamin B6) Active 100 MG PO DAILY August 23, 2013 1:00am vitamin e 180 mg oral tablet (20 [...] Tablet Refills: 0 Start : 05-Dec-2019 Active Start: 08-23-2013 Vitamin E (Dl, Acetate) 400 UNITS capsule Active 400 U PO DAILY August 23, 2013 1:00am Completed/Discontinued Medications Medication Drug Class(es) Dates Sig [...] Ordered: 05-Dec-2019 DO Start : 05-Dec-2019 Active cyclobenzaprine hydrochloride 10 mg oral tablet (4 sources) Muscle Relaxant Start: 03-26-2024 End: 05-25-2024 take 1 tablet by mouth three times daily as needed for muscle spasms cyclobenzaprine (Flexeril) 10 mg tablet Indications: Viral illness , Anemia, unspecified type , Myalgia Take 1 tablet (10 mg) by mouth 3 times a day as needed for muscle spasms. 30 tablet 03/26/2024 04/10/2024 Discontinued (Med List Cleanup) dexamethasone 4 mg oral tablet (1 source) Corticosteroid Start: 03-16-2024 End: 03-16-2024 take 12 mg by mouth once 12 mg, oral, Once, On Tue03/16/24 at 2330, For 1 dose doxycycline hyclate 100 mg oral capsule (2 sources) Tetracycline-class Drug Start: 02-07-2025 End: 02-07-2025 take 1 capsule by mouth twice daily doxycycline (Vibramycin) 100 mg capsule Indications: sinusitis Take 1 capsule (100 mg) by mouth 2 times a day for 7 days. Take with at least 8 ounces (large glass) of water, do not lie down for 30 minutes after Do not fill before February 07, 2025. 14 capsule 02/07/2025 02/07/2025 Discontinued (Therapy completed) Start: 04-10-2024 End: 05-01-2024 doxycycline (Vibramycin) 100 mg capsule Indications: Acute Lyme disease Take 1 capsule (100 mg) by mouth 2 times a day for 21 days. Take with at least 8 ounces (large glass) of water, do not lie down for 30 minutes after 42 capsule 04/10/2024 05/01/2024 Active IBgard CPCR (4 sources) IBgard CPCR Hernan tity: 0 Refills: 0 Ordered: 11-Feb-2022 DO Active Multi-Vitamins Oral Tablet (3 sources) Start: 12-05-2019 Multi-Vitamins Oral Tablet Refills: 0 Start : 05-Dec-2019 Active Multi-Vitamins TABS (12 sources) Start: 12-05-2019 Multi-Vitamins TABS TAKE 1 TABLET DAILY. Quantity: 0 Refills: 0 Ordered: 05-Dec-2019 DO Start : 05-Dec-2019 Active Start: 12-05-2019 Multi-Vitamins TABS Quantity: 0 Refills: 0 Ordered: 05-Dec-2019 DO Start : 05-Dec-2019 Active perflutren lipid microspheres (Definity) injection 2 mL of dilution (1 source) Start: 08-30-2024 End: 08-30-2024 2 mL of dilution, intravenous, Once in imaging, Starting on [facility] 08/30/24 at 1220, For 1 dose, Contrast - for use by imaging provider only. Prior to administration, Definity product must be activated. First, bring vial to room temperature. Then, shake vial for 45 seconds. Do not use if the 45 second activation cycle has not been completed. Following activation, the product will appear as a milky white suspension and may be used immediately. If not used within 5 minutes of activation, re-suspend by inverting and shaking the vial for 10 seconds. Discard unused product. Administration: Dilute 1.3 mL of activated DEFINITY with 8.7 mL of normal saline in a 10 mL syringe. Inject 0.5 mL of diluted DEFINITY when notified the images/film are unclear to enhance view of Left Ventricular borders. Repeat 0.5 mL of DEFINITY until clear images are obtained, not to exceed 10 mLs. Once images are obtained or limit of medication is reached, flush line with 10 mL of Normal Saline. predniSONE 20 mg oral tablet (20 sources) Start: 03-28-2024 End: 04-10-2024 take 1 tablet by mouth once daily, then take 1 tablet by mouth three times daily, then take 1 tablet by mouth twice daily, then take 1 tablet by mouth once daily predniSONE (Deltasone) 20 mg tablet Indications: Rheumatoid arthritis flare (Multi) , Cervical radiculopathy Take 1 tablet (20 mg) by mouth once daily for 9 days. ONE TAB THREE TIMES A DAY FOR 3 DAYS, THEN ONE TAB TWICE DAY FOR 3 DAYS, THEN ONE TAB DAILY FOR 3 DAYS 18 tablet 03/28/2024 04/10/2024 Discontinued (Med List Cleanup) Start: 03-28-2024 End: 03-28-2024 take 60 mg by mouth once 60 mg, oral, Once, On 12/17 at 1305, For 1 dose Start: 09-27-2023 End: 10-02-2023 take 2 tablets by mouth once daily predniSONE (Deltasone) 20 mg tablet Indications: Acute cough Take 2 tablets (40 mg) by mouth once daily for 5 days. 10 tablet 0 09/27/2023 10/02/2023 Active Start: 01-15-2021 End: 03-28-2024 take 1 tablet by mouth every twenty-four hours as needed predniSONE (Deltasone) 10 mg tablet Take 1 tablet (10 mg) by mouth once daily as needed. 01/15/2021 03/28/2024 Discontinued (Formulary change) 1 ml triamcinolone acetonide 40 mg/ml injection (2 sources) Corticosteroid Start: 05-16-2025 End: 05-16-2025 triamcinolone acetonide (Kenalog-40) injection 40 mg Start: 05-16-2025 End: 05-16-2025 40 mg, intra-articular, Once PRN Procedure, Starting on Olga 05/16/25 at 1708, For 1 dose Problems Active Problems Problem Classification Problem Date Documented Da te Episodic/Chronic Cardiac dysrhythmias (20 sources) Irregular heart beat; Translations: [Cardiac dysrhythmia, unspecified] Onset: 10-30-2022 08-25-2023 Chronic Conditions associated with dizziness or vertigo (10 sources) Benign paroxysmal positional vertigo; Translations: [Benign paroxysmal vertigo, unspecified ear] 09-13-2022 Episodic Deficiency and other anemia (2 sources) Anemia, unspecified; Translations: [Anemia, unspecified] Onset: 03-27-2024 Episodic Disorders of lipid metabolism (20 sources) Mixed hyperlipidemia; Translations: [Mixed hyperlipidemia] Onset: 10-30-2022 10-30-2022 Chronic Fever of unknown origin (3 sources) Fever; Translations: [Fever, unspecified] 03-21-2024 Episodic Osteoarthritis (20 sources) Osteoarthritis; Translations: [Osteoarthrosis, unspecified whether generalized or localized, site unspecified] Onset: 10-30-2022 10-30-2022 Chronic Other connective tissue disease (2 sources) Myalgia, unspecified site; Translations: [Myalgia, unspecified site] Onset: 03-27-2024 Episodic Other connective tissue disease (5 sources) Pain in left lower limb; Translations: [Pain in left leg] 12-20-2024 Episodic Other connective tissue disease (3 sources) H/O: rheumatoid arthritis; Translations: [Personal history of other diseases of the musculoskeletal system and connective tissue] 04-13-2024 Episodic Other diseases of kidney and ureters (2 sources) Renal impairment; Translations: [Disorder of kidney and ureter, unspecified] 12-20-2024 Episodic Other gastrointestinal disorders (20 sources) Irritable bowel syndrome; Translations: [Irritable bowel syndrome] Onset: 10-30-2022 10-30-2022 Chronic Other gastrointestinal disorders (1 source) Irritable bowel syndrome with diarrhea; Translations: [Irritable bowel syndrome with diarrhea] 02-07-2025 Chronic Other gastrointestinal disorders (2 sources) Irritable bowel syndrome without diarrhea; Translations: [Irritable bowel syndrome, unspecified] Onset: 10-30-2022 Chronic Other lower respiratory disease (1 source) Cough; Translations: [Acute cough] 09-27-2023 Episodic Other non-traumatic joint disorders (1 source) Pain in left knee; Translations: [Pain in joint, lower leg] 05-16-2025 Episodic Pulmonary heart disease (20 sources) Pulmonary hypertension; Translations: [Other chronic pulmonary heart diseases] Onset: 10-30-2022 10-30-2022 Chronic Residual codes; unclassified (20 sources) Past history of procedure; Translations: [Other specified personal history presenting hazards to health] Episodic Comment on above: 01/03/2019; Residual codes; unclassified (12 sources) Menopause present; Translations: [Symptomatic menopausal or female climacteric states] Episodic Residual codes; unclassified (3 sources) Unresponsive ; Translations: [Transient alteration of awareness] 03-21-2024 Episodic Rheumatoid arthritis and related disease (20 sources) Rheumatoid arthritis; Translations: [Rheumatoid arthritis] Onset: 10-30-2022 10-30-2022 Chronic Spondylosis; intervertebral disc disorders; other back problems (6 sources) Cervical radiculopathy; Translations: [Radiculopathy, cervical region] Onset: 03-28-2024 03-28-2024 Episodic Syncope (3 sources) Syncope and collapse; Translations: [Syncope and collapse] 08-25-2023 Episodic Unclassified (5 sources) Patient encounter status; Translations: [Breast cancer screening by mammogram] 12-20-2024 Unclassified (1 source) Cough, unspecified; Translations: [Cough, unspecified] Onset: 08-18-2021 Unclassified (2 sources) Other ventricular tachycardia; Translations: [Other ventricular tachycardia] Onset: 08-16-2024 Unclassified (1 source) Chronic pain of left knee 05-16-2025 Unclassified (2 sources) LT KNEE PAIN/SWELLING Onset: 05-16-2025 Viral infection (4 sources) Viral infection, unspecified; Translations: [Viral disease] Onset: 03-16-2024 Episodic Viral infection (1 source) COVID-19; Translations: [COVID-19] Onset: 08-18-2021 Past or Other Problems Problem Classification Problem Date Documented Da te Episodic/Chronic Deficiency and other anemia (1 source) Anemia; Translations: [Anemia, unspecified] 03-26-2024 Episodic Fluid and electrolyte disorders (6 sources) Hyponatremia; Translations: [Hypo-osmolality and hyponatremia] Onset: 03-28-2024 03-28-2024 Episodic Genitourinary symptoms and ill-defined conditions (20 sources) Blood in urine; Translations: [Hematuria, unspecified] Onset: 10-30-2022 10-30-2022 Episodic Malaise and fatigue (8 sources) Fatigue; Translations: [Other fatigue] Onset: 05-01-2024 12-20-2023 Episodic Nonmalignant breast conditions (14 sources) Breasts asymmetrical; Translations: [Other specified disorders of breast] Onset: 10-26-2024 10-26-2024 Episodic Nutritional deficiencies (20 sources) Cobalamin deficiency; Translations: [Other B-complex deficiencies] Onset: 10-30-2022 10-30-2022 Episodic Other connective tissue disease (1 source) Muscle pain; Translations: [Myalgia, unspecified site] 03-26-2024 Episodic Other connective tissue disease (4 sources) Pain in left leg; Translations: [Pain in left leg] Onset: 12-20-2024 Episodic Other diseases of kidney and ureters (2 sources) Disorder of kidney and ureter, unspecified; Translations: [Disorder of kidney and ureter, unspecified] Onset: 12-20-2024 Episodic Other eye disorders (20 sources) Tear film insufficiency; Translations: [Tear film insufficiency, unspecified] Onset: 10-30-2022 10-30-2022 Episodic Other infections; including parasitic (6 sources) Lyme disease, unspecified; Translations: [Lyme disease, unspecified] Onset: 04-10-2024 Episodic Other infections; including parasitic (19 sources) Acute lyme disease; Translations: [Lyme disease, unspecified] Onset: 04-10-2024 08-16-2024 Episodic Other screening for suspected conditions (not mental disorders or infectious disease) (20 sources) Increased glucose level; Translations: [Other abnormal glucose] Onset: 10-30-2022 Episodic Other upper respiratory infections (2 sources) Acute sinusitis, unspecified; Translations: [Acute sinusitis, unspecified] Onset: 02-04-2025 Episodic Unclassified (1 source) Cough, unspecified; Translations: [Cough, unspecified] Onset: 08-18-2021 Unclassified (20 sources) Onset: 08-25-2023 Resolved: 12-20-2024 08-25-2023 Unclassified (2 sources) Other ventricular tachycardia; Translations: [Other ventricular tachycardia] Onset: 08-16-2024 Urinary tract infections (20 sources) Acute lower urinary tract infection; Translations: [Urinary tract infection, site not specified] Onset: 10-30-2022 Resolved: 12-20-2023 10-30-2022 Episodic Results Test Name Value Interpretation Reference Range Facility CBC W/Diff, Automatedon 11-0 -2024 Absolute Lymph 0.86 X10 3/uL Normal 0.83-4.51 [facility] Comment on above: Performed By: #### L 500.4050, L100.0100 #### [facility] [address] [place], [address] Absolute Neut 3.1 X10 3/uL Normal 2.0-7.7 [facility] Comment on above: Performed By: #### L 500.4050, L100.0100 #### [facility] [address] [place], [id number] Basophils/100 WBC (Bld) 0.4 % Normal 0-1 [facility] Comment on above: Performed By: #### L 500.4050, L100.0100 #### [facility] [address] [place], [id number] Eosinophils/100 WBC (Bld) 4.4 % Normal 0-5 [facility] Comment on above: Performed By: #### L 500.4050, L100.0100 #### [facility] [address] [place], [id number] Erythrocyte distribution width (RBC) [Ratio] 14.0 % Normal 11.6-14.6 [facility] Comment on above: Performed By: #### L 500.4050, L100.0100 #### [facility] [address] [place], [id number] Hematocrit (Bld) [Volume fraction] 35.8 % Low 37-47 [facility] Comment on above: Performed By: #### L 500.4050, L100.0100 #### [facility] [address] [place], [id number] Hemoglobin (Bld) [Mass/Vol] 11.9 g/dL Low 12.0-15.0 [facility] Comment on above: Performed By: #### L 500.4050, L100.0100 #### [facility] [address] [place], [id number] IG% 0.200 Normal 0.0-0.9 [facility] Comment on above: Result Comment: IG% - Immature Granulocytes (promyelocytes, myelocytes and metamyelocytes) > 1% indicates that a LEFT SHIFT is Present. Performed By: #### L 500.4050, L100.0100 #### [facility] [address] [place], [id number] Lymphocytes/100 WBC (Bld) 19.0 % Normal 19-41 [facility] Comment on above: Performed By: #### L 500.4050, L100.0100 #### [facility] [address] [place], [address] MCH (RBC) [Entitic mass] 32.1 pg High 27.0-32.0 [facility] Comment on above: Performed By: #### L 500.4050, L100.0100 #### [facility] [address] [place], [id number] MCHC (RBC) [Mass/Vol] 33.2 g/dL Normal 32-36 [facility] Comment on above: Performed By: #### L 500.4050, L100.0100 #### [facility] [address] [place], [id number] MCV (RBC) [Entitic vol] 96.5 fL Normal 81-99 [facility] Comment on above: Performed By: #### L 500.4050, L100.0100 #### [facility] [address] [place], [id number] Monocytes/100 WBC (Bld) 8.4 % Normal 0-10 [facility] Comment on above: Performed By: #### L 500.4050, L100.0100 #### [facility] [address] [place], [id number] Neutrophils/100 WBC (Bld) 67.6 % Normal 47-70 [facility] Comment on above: Performed By: #### L 500.4050, L100.0100 #### [facility] [address] [place], [id number] Nucleated RBC (Bld) [#/Vol] 0 10*3/uL Normal 0-5 [facility] Comment on above: Performed By: #### L 500.4050, L100.0100 #### [facility] [address] [place], [address] Platelet mean volume (Bld) [Entitic vol] 9.8 fL Normal 6.2-12.0 [facility] Comment on above: Performed By: #### L 500.4050, L100.0100 #### [facility] [address] [place], [id number] Platelets (Bld) [#/Vol] 207 10*3/uL Normal 150-450 [facility] Comment on above: Performed By: #### L 500.4050, L100.0100 #### [facility] [address] [place], [id number] RBC (Bld) [#/Vol] 3.71 10*6/uL Low 4.2-5.4 [facility] Comment on above: Performed By: #### L 500.4050, L100.0100 #### [facility] [address] [place], [id number] RDW SD 48.6 fl High 35.1-43.9 [facility] Comment on above: Performed By: #### L 500.4050, L100.0100 #### [facility] [address] [place], [address] WBC (Bld) [#/Vol] 4.5 10*3/uL Normal 4.4-11.0 [facility] Comment on above: Performed By: #### L 500.4050, L100.0100 #### [facility] [address] [place], [address] Comprehensive Metabolic Prof ilon 08-02-2025 Albumin [Mass/Vol] 4.1 g/dL Normal 3.4-4.8 [facility] Comment on above: Performed By: #### L 500.4050, L100.0100 #### [facility] [address] [place], [address] Albumin/Globulin [Mass ratio] 1.5 {ratio} Normal 0.9-2.4 [facility] Comment on above: Performed By: #### L 500.4050, L100.0100 #### [facility] [address] [place], [address] ALK PHOS 42 U/L Normal 35-104 [facility] Comment on above: Performed By: #### L 500.4050, L100.0100 #### [facility] [address] [place], [address] ALT [Catalytic activity/Vol] 35 U/L Normal <=34 [facility] Comment on above: Performed By: #### L 500.4050, L100.0100 #### [facility] [address] [place], [address] AST [Catalytic activity/Vol] 44 U/L High <=31 [facility] Comment on above: Performed By: #### L 500.4050, L100.0100 #### [facility] [address] [place], [address] Bilirubin [Mass/Vol] 0.51 mg/dL Normal 0.00-1.30 [facility] Comment on above: Performed By: #### L 500.4050, L100.0100 #### [facility] [address] [place], [address] BUN/CRE 28.4 RATIO High 10-20 [facility] Comment on above: Performed By: #### L 500.4050, L100.0100 #### [facility] [address] [place], [address] Calcium [Mass/Vol] 8.9 mg/dL Normal 7.6-11.0 [facility] Comment on above: Performed By: #### L 500.4050, L100.0100 #### [facility] [address] [place], [address] Chloride [Moles/Vol] 99 mmol/L Normal 98-108 [facility] Comment on above: Performed By: #### L 500.4050, L100.0100 #### [facility] [address] [place], [address] CO2 [Moles/Vol] 27.0 mmol/L Normal 21.0-32.0 [facility] Comment on above: Performed By: #### L 500.4050, L100.0100 #### [facility] [address] [place], [address] Creatinine [Mass/Vol] 0.82 mg/dL Normal 0.70-1.20 [facility] Comment on above: Performed By: #### L 500.4050, L100.0100 #### [facility] [address] [place], [address] GAP 9 Normal 5-15 [facility] Comment on above: Performed By: #### L 500.4050, L100.0100 #### [facility] [address] [place], [address] GFR/1.73 sq M.predicted among non-blacks MDRD (S/P/Bld) [Vol rate/Area] 72 mL/min/{1.73_m2} Normal >60 [facility] Comment on above: Result Comment: mL/m in/1.73m2 CKD-EPI Creatinine Equation (2020) Performed By: #### L 500.4050, L100.0100 #### [facility] [address] [place], [address] Globulin (S) [Mass/Vol] 2.7 g/dL Normal 2.2-4.2 [facility] Comment on above: Performed By: #### L 500.4050, L100.0100 #### [facility] [address] [place], [address] Glucose [Mass/Vol] 80 mg/dL Normal 70-99 [facility] Comment on above: Performed By: #### L 500.4050, L100.0100 #### [facility] [address] [place], [address] Potassium [Moles/Vol] 4.2 mmol/L Normal 3.3-5.1 [facility] Comment on above: Performed By: #### L 500.4050, L100.0100 #### [facility] [address] [place], [address] Sodium [Moles/Vol] 135 mmol/L Normal 133-145 [facility] Comment on above: Performed By: #### L 500.4050, L100.0100 #### [facility] [address] [place], [address] T PROT 6.8 g/dL Normal 5.9-8.4 [facility] Comment on above: Performed By: #### L 500.4050, L100.0100 #### [facility] [address] [place], [address] Urea nitrogen [Mass/Vol] 23 mg/dL High 4-19 [facility] Comment on above: Performed By: #### L 500.4050, L100.0100 #### [facility] [address] [place], [id number] Knee 4 or More Viewson 05-23 Knee 4 or More Views [facility] [address] [place] [id number] Knee 4 or More Views MR#: [id number] Acct: [id number] Name: KIM ROCHA Rep #: [id number] : 1945 F 80 From: Herlinda Ac MD PCP: Dr. Rashid Millan MD Status: REG CLI Study: Knee 4 or More Views Date of Exam: 05/23/25 Exam# [id number] Ordering Dr: Lety Marcelo MD PROCEDURE: KNEE 4 OR MORE VIEWS 05/23/2025 REASON FOR EXAM: RA TECHNIQUE: KNEE 4 OR MORE VIEWS Laterality: Left COMPARISON: None. FINDINGS: BONES: No acute fracture or focal osseous lesion. JOINTS: Small to moderate-sized suprapatellar joint effusion. No dislocation. Minimal narrowing in the medial compartment. SOFT TISSUES: The soft tissues are unremarkable. RAD/Knee 4 or More Views IMPRESSION: 1. No acute osseous abnormality. 2. Mild-moderate knee joint effusion. Reading Location: [facility] CC: Dr. Rashid Millan MD; Dr. Lety Marcelo MD Protein Scientist: Signed Normal [facility] Knee 4 or More Views [facility] Services [address] [place] [id number] Knee 4 or More Views MR#: [id number] Acct: [id number] Name: KIM ROCHA Rep #: [id number] : 1945 F 80 From: Herlinda Ac MD PCP: Dr. 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 FINDINGS: BONES: No acute fracture or focal osseous lesion. JOINTS: No significant joint effusion. No dislocation. Moderately severe medial compartment narrowing with subchondral sclerosis and marginal osteophytes. SOFT TISSUES: The soft tissues are unremarkable. RAD/Knee 4 or More Views IMPRESSION: 1. No acute osseous abnormality. 2. Moderately severe medial compartment osteoarthrosis. Reading Location: [facility] CC: Dr. Rashid Millan MD; Dr. Lety Marcelo MD Protein Scientist: Signed Normal [facility] Joint Injection Large/Arthro centesis: L kneeon 05-16-2025 Akanksha Millan MD 05/16/2025 5:15 PM Joint Injection Large/Arthrocentesis: L knee on 05/16/2025 5:08 PM Indications: pain Details: 25 G needle, anterolateral approach Medications: 40 mg triamcinolone acetonide 40 mg/mL Outcome: tolerated well, no immediate complications 2 cc 0.5% bupivacaine. Procedure, treatment alternatives, risks and benefits explained, specific risks discussed. Consent was given by the patient. [facility] Work Phone: [facility] Work Phone: Absolute lymphocyte countOrd ered By: Lety Marcelo on 04-24-2025 Lymphocytes Auto (Unsp spec) [#/Vol] 1.06 10*3/uL 0.83-4.51 [facility] Absolute neutrophil countOrd ered By: Lety Marcelo on 04-24-2025 Neutrophils (Bld) [#/Vol] 2.6 10*3/uL 2.0-7.7 [facility] Anion gap in Serum or Plasma Ordered By: Lety Marcelo on 04-24-2025 Anion gap [Moles/Vol] 10 mmol/L 5-15 [facility] Automated lymphocyte count a s percentage of total leukocytesOrdered By: Letymirtha Marcelo on 04-24-2025 Lymphocytes/100 WBC Auto (Unsp spec) 24.0 % - [facility] BUN/creatinine ratioOrdered By: Letymirtha Marcelo on 04-24-2025 Urea nitrogen/Creatinine [Mass ratio] 22.1 mg/mg High 10-20 [facility] Basophil percentageOrdered B y: Lety Marcelo on 04-24-2025 Basophils/100 WBC (Bld) 0.5 % 0-1 [facility] Bilirubin, totalOrdered By: [facility] Davian on 04-24-2025 Bilirubin [Mass/Vol] 0.40 mg/dL 0.00-1.30 [facility] CBC W/Diff, Automatedon 03-28 Absolute Lymph 1.06 X10 3/uL Normal 0.83-4.51 [facility] Comment on above: Performed By: #### L 500.4050, L100.0100 #### [facility] [address] [place], [address] Absolute Neut 2.6 X10 3/uL Normal 2.0-7.7 [facility] Comment on above: Performed By: #### L 500.4050, L100.0100 #### [facility] [address] [place], [address] Basophils/100 WBC (Bld) 0.5 % Normal 0-1 [facility] Comment on above: Performed By: #### L 500.4050, L100.0100 #### [facility] [address] [place], [address] Eosinophils/100 WBC (Bld) 4.1 % Normal 0-5 [facility] Comment on above: Performed By: #### L 500.4050, L100.0100 #### [facility] [address] [place], [address] Erythrocyte distribution width (RBC) [Ratio] 13.9 % Normal 11.6-14.6 [facility] Comment on above: Performed By: #### L 500.4050, L100.0100 #### [facility] [address] [place], [address] Hematocrit (Bld) [Volume fraction] 37.3 % Normal 37-47 [facility] Comment on above: Performed By: #### L 500.4050, L100.0100 #### [facility] [address] [place], [address] Hemoglobin (Bld) [Mass/Vol] 12.0 g/dL Normal 12.0-15.0 [facility] Comment on above: Performed By: #### L 500.4050, L100.0100 #### [facility] [address] [place], [address] IG% 0.500 Normal 0.0-0.9 [facility] Comment on above: Result Comment: IG% - Immature Granulocytes (promyelocytes, myelocytes and metamyelocytes) > 1% indicates that a LEFT SHIFT is Present. Performed By: #### L 500.4050, L100.0100 #### [facility] [address] [place], [id number] Lymphocytes/100 WBC (Bld) 24.0 % Normal 19-41 [facility] Comment on above: Performed By: #### L 500.4050, L100.0100 #### [facility] [address] [place], [address] MCH (RBC) [Entitic mass] 31.7 pg Normal 27.0-32.0 [facility] Comment on above: Performed By: #### L 500.4050, L100.0100 #### [facility] [address] [place], [address] MCHC (RBC) [Mass/Vol] 32.2 g/dL Normal 32-36 [facility] Comment on above: Performed By: #### L 500.4050, L100.0100 #### [facility] [address] [place], [address] MCV (RBC) [Entitic vol] 98.4 fL Normal 81-99 [facility] Comment on above: Performed By: #### L 500.4050, L100.0100 #### [facility] [address] [place], [address] Monocytes/100 WBC (Bld) 11.6 % High 0-10 [facility] Comment on above: Performed By: #### L 500.4050, L100.0100 #### [facility] [address] [place], [address] Neutrophils/100 WBC (Bld) 59.3 % Normal 47-70 [facility] Comment on above: Performed By: #### L 500.4050, L100.0100 #### [facility] [address] [place], [address] Nucleated RBC (Bld) [#/Vol] 0 10*3/uL Normal 0-5 [facility] Comment on above: Performed By: #### L 500.4050, L100.0100 #### [facility] [address] [place], [address] Platelet mean volume (Bld) [Entitic vol] 10.9 fL Normal 6.2-12.0 [facility] Comment on above: Performed By: #### L 500.4050, L100.0100 #### [facility] [address] [place], [address] Platelets (Bld) [#/Vol] 186 10*3/uL Normal 150-450 [facility] Comment on above: Performed By: #### L 500.4050, L100.0100 #### [facility] [address] [place], [address] RBC (Bld) [#/Vol] 3.79 10*6/uL Low 4.2-5.4 [facility] Comment on above: Performed By: #### L 500.4050, L100.0100 #### [facility] [address] [place], [address] RDW SD 50.0 fl High 35.1-43.9 [facility] Comment on above: Performed By: #### L 500.4050, L100.0100 #### [facility] [address] [place], [address] WBC (Bld) [#/Vol] 4.4 10*3/uL Normal 4.4-11.0 [facility] Comment on above: Performed By: #### L 500.4050, L100.0100 #### [facility] [address] [place], [address] Carbon dioxide, total [Moles /volume] in Central venous bloodOrdered By: Lety Marcelo on 04-24-2025 CO2 [Moles/Vol] 26.6 mmol/L 21.0-32.0 [facility] Chloride assayOrdered By: Nick Marcelo on 04-24-2025 Chloride [Moles/Vol] 101 mmol/L 98-108 [facility] Comprehensive Metabolic Prof ilon 04-24-2025 Albumin [Mass/Vol] 4.2 g/dL Normal 3.4-4.8 [facility] Comment on above: Performed By: #### L 500.4050, L100.0100 #### [facility] [address] [place], [address] Albumin/Globulin [Mass ratio] 1.6 {ratio} Normal 0.9-2.4 [facility] Comment on above: Performed By: #### L 500.4050, L100.0100 #### [facility] [address] [place], [address] ALK PHOS 39 U/L Normal 35-104 [facility] Comment on above: Performed By: #### L 500.4050, L100.0100 #### [facility] [address] [place], [address] ALT [Catalytic activity/Vol] 33 U/L Normal <=34 [facility] Comment on above: Performed By: #### L 500.4050, L100.0100 #### [facility] [address] [place], [address] AST [Catalytic activity/Vol] 37 U/L High <=31 [facility] Comment on above: Performed By: #### L 500.4050, L100.0100 #### [facility] [address] [place], [address] Bilirubin [Mass/Vol] 0.40 mg/dL Normal 0.00-1.30 [facility] Comment on above: Performed By: #### L 500.4050, L100.0100 #### [facility] [address] [place], [address] BUN/CRE 22.1 RATIO High 10-20 [facility] Comment on above: Performed By: #### L 500.4050, L100.0100 #### [facility] [address] [place], [address] Calcium [Mass/Vol] 9.1 mg/dL Normal 7.6-11.0 [facility] Comment on above: Performed By: #### L 500.4050, L100.0100 #### [facility] [address] [place], [address] Chloride [Moles/Vol] 101 mmol/L Normal 98-108 [facility] Comment on above: Performed By: #### L 500.4050, L100.0100 #### [facility] [address] [place], [address] CO2 [Moles/Vol] 26.6 mmol/L Normal 21.0-32.0 [facility] Comment on above: Performed By: #### L 500.4050, L100.0100 #### [facility] [address] [place], [address] Creatinine [Mass/Vol] 1.01 mg/dL Normal 0.70-1.20 [facility] Comment on above: Performed By: #### L 500.4050, L100.0100 #### [facility] [address] [place], [address] GAP 10 Normal 5-15 [facility] Comment on above: Performed By: #### L 500.4050, L100.0100 #### [facility] [address] [place], [address] GFR/1.73 sq M.predicted among non-blacks MDRD (S/P/Bld) [Vol rate/Area] 57 mL/min/{1.73_m2} Low >60 [facility] Comment on above: Result Comment: mL/m in/1.73m2 CKD-EPI Creatinine Equation (2020) Performed By: #### L 500.4050, L100.0100 #### [facility] [address] [place], [address] Globulin (S) [Mass/Vol] 2.6 g/dL Normal 2.2-4.2 [facility] Comment on above: Performed By: #### L 500.4050, L100.0100 #### [facility] [address] [place], [address] Glucose [Mass/Vol] 79 mg/dL Normal 70-99 [facility] Comment on above: Performed By: #### L 500.4050, L100.0100 #### [facility] [address] [place], [address] Potassium [Moles/Vol] 4.0 mmol/L Normal 3.3-5.1 [facility] Comment on above: Performed By: #### L 500.4050, L100.0100 #### [facility] [address] [place], [address] Sodium [Moles/Vol] 138 mmol/L Normal 133-145 [facility] Comment on above: Performed By: #### L 500.4050, L100.0100 #### [facility] [address] [place], [address] T PROT 6.8 g/dL Normal 5.9-8.4 [facility] Comment on above: Performed By: #### L 500.4050, L100.0100 #### [facility] [address] [place], [address] Urea nitrogen [Mass/Vol] 22 mg/dL High 4-19 [facility] Comment on above: Performed By: #### L 500.4050, L100.0100 #### [facility] [address] [place], [address] Eosinophil percentageOrdered By: Lety Marcelo on 04-24-2025 Eosinophils/100 WBC (Bld) 4.1 % 0-5 [facility] Erythrocyte distribution wid th ratioOrdered By: Lety Marcelo on 04-24-2025 Erythrocyte distribution width (RBC) [Ratio] 13.9 % 11.6-14.6 [facility] Erythrocyte distribution wid th standard deviationOrdered By: Lety Marcelo on 04-24-2025 Erythrocyte distribution width (RBC) [Ratio] 50.0 fl High 35.1-43.9 [facility] Glomerular filtration rate ( GFR) estimation/1.73 sq m using serum, plasma, or whole bOrdered By: Lety Marcelo on 04-24-2025 GFR/1.73 sq M.predicted among non-blacks MDRD (S/P/Bld) [Vol rate/Area] 57 mL/min/{1.73_m2} Low >60 [facility] Comment on above: mL/min/1.73m2 CKD-EP I Creatinine Equation (2020) Hematocrit Auto (Bld) [Volum e fraction]Ordered By: Lety Marcelo on 04-24-2025 Hematocrit (Bld) [Volume fraction] 37.3 % 37-47 [facility] Hemoglobin measurementOrdere d By: Lety Marcelo on 04-24-2025 Hemoglobin (Bld) [Mass/Vol] 12.0 g/dL 12.0-15.0 [facility] Immature granulocytes/100 WB C Auto (Bld)Ordered By: Lety Marcelo on 04-24-2025 Immature granulocytes/100 WBC (Bld) 0.500 % 0.0-0.9 [facility] Comment on above: IG% - Immature Granu locytes (promyelocytes, myelocytes and metamyelocytes) > 1% indicates that a LEFT SHIFT is Present. Laboratory - Chemistry and C hemistry - challengeOrdered By: Lety Marcelo on 04-24-2025 AST [Catalytic activity/Vol] 37 U/L High <32 [facility] MCV (mean corpuscular volume ) determinationOrdered By: Lety Marcelo on 04-24-2025 MCV (RBC) [Entitic vol] 98.4 fL 81-99 [facility] Mean corpuscular hemoglobin (MCH) determinationOrdered By: Lety Marcelo on 04-24-2025 MCH (RBC) [Entitic mass] 31.7 pg 27.0-32.0 [facility] Mean corpuscular hemoglobin concentration (MCHC) determinationOrdered By: Lety Marcelo on 04-24-2025 MCHC (RBC) [Mass/Vol] 32.2 g/dL 32-36 [facility] Mean platelet volume determi nationOrdered By: Lety Marcelo on 04-24-2025 Platelet mean volume (Bld) [Entitic vol] 10.9 fL 6.2-12.0 [facility] Monocyte percentageOrdered B y: Lety Marcelo on 04-24-2025 Monocytes/100 WBC (Bld) 11.6 % High 0-10 [facility] Neutrophil percentageOrdered By: Lety Marcelo on 04-24-2025 Neutrophils/100 WBC (Bld) 59.3 % 47-70 [facility] Nucleated red blood cell per centageOrdered By: Lety Marcelo on 04-24-2025 Nucleated RBC/100 WBC (Bld) [Ratio] 0 % 0-5 [facility] Platelet countOrdered By: Nick Marcelo on 04-24-2025 Platelets (Bld) [#/Vol] 186 10*3/uL 150-450 [facility] Potassium measurement (mass/ volume)Ordered By: Lety Marcelo on 04-24-2025 Potassium (Unsp spec) [Mass/Vol] 4.0 mmol/L 3.3-5.1 [facility] RBC Auto (Bld) [#/Vol]Ordere d By: Lety Marcelo on 04-24-2025 RBC (Bld) [#/Vol] 3.79 10*6/uL Low 4.2-5.4 [facility] Serum creatinine measurement (mass/volume)Ordered By: Lety Marcelo on 04-24-2025 Creatinine [Mass/Vol] 1.01 mg/dL 0.70-1.20 [facility] Serum globulin measurementOr dered By: Lety Marcelo on 04-24-2025 Globulin (S) [Mass/Vol] 2.6 g/dL 2.2-4.2 [facility] Serum glucose measurement (m ass/volume)Ordered By: Lety Marcelo on 04-24-2025 Glucose [Mass/Vol] 79 mg/dL 70-99 [facility] Serum or plasma alanine steinberg otransferase (ALT) measurementOrdered By: Lety Marcelo on 04-24-2025 ALT [Catalytic activity/Vol] 33 U/L <35 [facility] Serum or plasma albumin koki urement (mass/volume)Ordered By: Lety Marcelo on 04-24-2025 Albumin [Mass/Vol] 4.2 g/dL 3.4-4.8 [facility] Serum or plasma albumin/glob ulin mass ratioOrdered By: Lety Marcelo on 04-24-2025 Albumin/Globulin [Mass ratio] 1.6 {ratio} 0.9-2.4 [facility] Serum or plasma alkaline lisa sphatase measurementOrdered By: Lety Marcelo on 04-24-2025 ALP [Catalytic activity/Vol] 39 U/L 35-104 [facility] Serum or plasma calcium koki urement (mass/volume)Ordered By: Lety Marcelo on 04-24-2025 Calcium [Mass/Vol] 9.1 mg/dL 7.6-11.0 [facility] Serum or plasma urea nitroge n measurement (mass/volume)Ordered By: Lety Marcelo on 04-24-2025 Urea nitrogen [Mass/Vol] 22 mg/dL High 4-19 [facility] Sodium levelOrdered By: Srinivasa Marcelo on 04-24-2025 Sodium [Moles/Vol] 138 mmol/L 133-145 [facility] Total proteinOrdered By: Yasmine Marcelo on 04-24-2025 Protein [Mass/Vol] 6.8 g/dL 5.9-8.4 [facility] White blood cell (WBC) count Ordered By: Lety Marcelo on 04-24-2025 WBC (Bld) [#/Vol] 4.4 10*3/uL 4.4-11.0 [facility] Absolute lymphocyte countOrd ered By: Lety Marcelo on 02-06-2025 Lymphocytes Auto (Unsp spec) [#/Vol] 1.36 10*3/uL 0.83-4.51 [facility] Absolute neutrophil countOrd ered By: Lety Marcelo on 02-06-2025 Neutrophils (Bld) [#/Vol] 1.9 10*3/uL Low 2.0-7.7 [facility] Anion gap in Serum or Plasma Ordered By: Lety Marcelo on 02-06-2025 Anion gap [Moles/Vol] 9 mmol/L 5-15 [facility] Automated lymphocyte count a s percentage of total leukocytesOrdered By: Lety Marcelo on 02-06-2025 Lymphocytes/100 WBC Auto (Unsp spec) 33.7 % 19-41 [facility] BUN/creatinine ratioOrdered By: Lety Marcelo on 02-06-2025 Urea nitrogen/Creatinine [Mass ratio] 21.3 mg/mg High 10-20 [facility] Basophil percentageOrdered B y: Lety Marcelo on 02-06-2025 Basophils/100 WBC (Bld) 1.0 % 0-1 [facility] Bilirubin, totalOrdered By: Lety Marcelo on 02-06-2025 Bilirubin [Mass/Vol] 0.32 mg/dL 0.00-1.30 [facility] CBC W/Diff, Automatedon 01-24 PLT EST ADEQUATE Normal ADEQ [facility] Comment on above: Performed By: #### L 500.4050, L100.0100 #### [facility] [address] [place], [address] Carbon dioxide, total [Moles /volume] in Central venous bloodOrdered By: Lety Marcelo on 02-06-2025 CO2 [Moles/Vol] 26.1 mmol/L 21.0-32.0 [facility] Chloride assayOrdered By: Nick Marcelo on 02-06-2025 Chloride [Moles/Vol] 98 mmol/L 98-108 [facility] Comprehensive Metabolic Prof ilon 02-06-2025 Albumin [Mass/Vol] 4.2 g/dL Normal 3.4-4.8 [facility] Comment on above: Performed By: #### L 500.4050, L100.0100 #### [facility] [address] [place], [address] Albumin/Globulin [Mass ratio] 1.4 {ratio} Normal 0.9-2.4 [facility] Comment on above: Performed By: #### L 500.4050, L100.0100 #### [facility] [address] [place], [address] ALK PHOS 47 U/L Normal 35-104 [facility] Comment on above: Performed By: #### L 500.4050, L100.0100 #### [facility] [address] [place], [address] ALT [Catalytic activity/Vol] 34 U/L Normal <=34 [facility] Comment on above: Performed By: #### L 500.4050, L100.0100 #### [facility] [address] [place], [address] AST [Catalytic activity/Vol] 45 U/L High <=31 [facility] Comment on above: Performed By: #### L 500.4050, L100.0100 #### [facility] [address] [place], [address] Bilirubin [Mass/Vol] 0.32 mg/dL Normal 0.00-1.30 [facility] Comment on above: Performed By: #### L 500.4050, L100.0100 #### [facility] [address] [place], [address] BUN/CRE 21.3 RATIO High 10-20 [facility] Comment on above: Performed By: #### L 500.4050, L100.0100 #### [facility] [address] [place], [address] Calcium [Mass/Vol] 9.7 mg/dL Normal 7.6-11.0 [facility] Comment on above: Performed By: #### L 500.4050, L100.0100 #### [facility] [address] [place], [address] Chloride [Moles/Vol] 98 mmol/L Normal 98-108 [facility] Comment on above: Performed By: #### L 500.4050, L100.0100 #### [facility] [address] [place], [address] CO2 [Moles/Vol] 26.1 mmol/L Normal 21.0-32.0 [facility] Comment on above: Performed By: #### L 500.4050, L100.0100 #### [facility] [address] [place], [address] Creatinine [Mass/Vol] 0.90 mg/dL Normal 0.70-1.20 [facility] Comment on above: Performed By: #### L 500.4050, L100.0100 #### [facility] [address] [place], [address] GAP 9 Normal 5-15 [facility] Comment on above: Performed By: #### L 500.4050, L100.0100 #### [facility] [address] [place], [address] GFR/1.73 sq M.predicted among non-blacks MDRD (S/P/Bld) [Vol rate/Area] 65 mL/min/{1.73_m2} Normal >60 [facility] Comment on above: Result Comment: mL/m in/1.73m2 CKD-EPI Creatinine Equation (2020) Performed By: #### L 500.4050, L100.0100 #### [facility] [address] [place], [address] Globulin (S) [Mass/Vol] 3.0 g/dL Normal 2.2-4.2 [facility] Comment on above: Performed By: #### L 500.4050, L100.0100 #### [facility] [address] [place], [address] Glucose [Mass/Vol] 82 mg/dL Normal 70-99 [facility] Comment on above: Performed By: #### L 500.4050, L100.0100 #### [facility] [address] [place], [address] Potassium [Moles/Vol] 4.5 mmol/L Normal 3.3-5.1 [facility] Comment on above: Performed By: #### L 500.4050, L100.0100 #### [facility] [address] [place], [address] Sodium [Moles/Vol] 133 mmol/L Normal 133-145 [facility] Comment on above: Performed By: #### L 500.4050, L100.0100 #### [facility] [address] [place], [address] T PROT 7.1 g/dL Normal 5.9-8.4 [facility] Comment on above: Performed By: #### L 500.4050, L100.0100 #### [facility] [address] [place], [address] Urea nitrogen [Mass/Vol] 19 mg/dL Normal 4-19 [facility] Comment on above: Performed By: #### L 500.4050, L100.0100 #### [facility] [address] [place], [address] Eosinophil percentageOrdered By: Lety Marcelo on 02-06-2025 Eosinophils/100 WBC (Bld) 6.0 % High 0-5 [facility] Erythrocyte distribution wid th ratioOrdered By: [facility] Davian on 02-06-2025 Erythrocyte distribution width (RBC) [Ratio] 13.8 % 11.6-14.6 [facility] Erythrocyte distribution wid th standard deviationOrdered By: Lety Marcelo on 02-06-2025 Erythrocyte distribution width (RBC) [Ratio] 48.1 fl High 35.1-43.9 [facility] Glomerular filtration rate ( GFR) estimation/1.73 sq m using serum, plasma, or whole bOrdered By: Lety Marcelo on 02-06-2025 GFR/1.73 sq M.predicted among non-blacks MDRD (S/P/Bld) [Vol rate/Area] 65 mL/min/{1.73_m2} >60 [facility] Comment on above: mL/min/1.73m2 CKD-EP I Creatinine Equation (2020) Hematocrit Auto (Bld) [Volum e fraction]Ordered By: Lety Marcelo on 02-06-2025 Hematocrit (Bld) [Volume fraction] 37.5 % 37-47 [facility] Hemoglobin measurementOrdere d By: Lety Marcelo on 02-06-2025 Hemoglobin (Bld) [Mass/Vol] 12.4 g/dL 12.0-15.0 [facility] Immature granulocytes/100 WB C Auto (Bld)Ordered By: Lety Marcelo on 02-06-2025 Immature granulocytes/100 WBC (Bld) 0.500 % 0.0-0.9 [facility] Comment on above: IG% - Immature Granu locytes (promyelocytes, myelocytes and metamyelocytes) > 1% indicates that a LEFT SHIFT is Present. Laboratory - Chemistry and C hemistry - challengeOrdered By: Lety Marcelo on 02-06-2025 AST [Catalytic activity/Vol] 45 U/L High <32 [facility] MCV (mean corpuscular volume ) determinationOrdered By: Lety Marcelo on 02-06-2025 MCV (RBC) [Entitic vol] 95.9 fL 81-99 [facility] Mean corpuscular hemoglobin (MCH) determinationOrdered By: Lety Marcelo on 02-06-2025 MCH (RBC) [Entitic mass] 31.7 pg 27.0-32.0 [facility] Mean corpuscular hemoglobin concentration (MCHC) determinationOrdered By: Lety Marcelo on 02-06-2025 MCHC (RBC) [Mass/Vol] 33.1 g/dL 32-36 [facility] Mean platelet volume determi nationOrdered By: Lety Marcelo on 02-06-2025 Platelet mean volume (Bld) [Entitic vol] 10.4 fL 6.2-12.0 [facility] Monocyte percentageOrdered B y: Lety Marcelo on 02-06-2025 Monocytes/100 WBC (Bld) 12.7 % High 0-10 [facility] Neutrophil percentageOrdered By: Lety Marcelo on 02-06-2025 Neutrophils/100 WBC (Bld) 46.1 % Low 47-70 [facility] Nucleated red blood cell per centageOrdered By: Lety Marcelo on 02-06-2025 Nucleated RBC/100 WBC (Bld) [Ratio] 0 % 0-5 [facility] Platelet countOrdered By: Nick Marcelo on 02-06-2025 Platelets (Bld) [#/Vol] 187 10*3/uL 150-450 [facility] Platelet estimateOrdered By: Lety Marcelo on 02-06-2025 Platelets LM Ql (Bld) ADEQUATE ADEQ [facility] Potassium measurement (mass/ volume)Ordered By: Lety Marcelo on 02-06-2025 Potassium (Unsp spec) [Mass/Vol] 4.5 mmol/L 3.3-5.1 [facility] RBC Auto (Bld) [#/Vol]Ordere d By: Lety Marcelo on 02-06-2025 RBC (Bld) [#/Vol] 3.91 10*6/uL Low 4.2-5.4 [facility] Serum creatinine measurement (mass/volume)Ordered By: Lety Marcelo on 02-06-2025 Creatinine [Mass/Vol] 0.90 mg/dL 0.70-1.20 [facility] Serum globulin measurementOr dered By: Lety Marcelo on 02-06-2025 Globulin (S) [Mass/Vol] 3.0 g/dL 2.2-4.2 [facility] Serum glucose measurement (m ass/volume)Ordered By: Lety Marcelo on 02-06-2025 Glucose [Mass/Vol] 82 mg/dL 70-99 [facility] Serum or plasma alanine steinberg otransferase (ALT) measurementOrdered By: Lety Marcelo on 02-06-2025 ALT [Catalytic activity/Vol] 34 U/L <35 [facility] Serum or plasma albumin koki urement (mass/volume)Ordered By: Lety Marcelo on 02-06-2025 Albumin [Mass/Vol] 4.2 g/dL 3.4-4.8 [facility] Serum or plasma albumin/glob ulin mass ratioOrdered By: Lety Marcelo on 02-06-2025 Albumin/Globulin [Mass ratio] 1.4 {ratio} 0.9-2.4 [facility] Serum or plasma alkaline lisa sphatase measurementOrdered By: Lety Marcelo on 02-06-2025 ALP [Catalytic activity/Vol] 47 U/L 35-104 [facility] Serum or plasma calcium koki urement (mass/volume)Ordered By: Lety Marcelo on 02-06-2025 Calcium [Mass/Vol] 9.7 mg/dL 7.6-11.0 [facility] Serum or plasma urea nitroge n measurement (mass/volume)Ordered By: Lety Marcelo on 02-06-2025 Urea nitrogen [Mass/Vol] 19 mg/dL 4-19 [facility] Sodium levelOrdered By: Srinivasa Marcelo on 02-06-2025 Sodium [Moles/Vol] 133 mmol/L 133-145 [facility] Total proteinOrdered By: Yasmine Marcelo on 02-06-2025 Protein [Mass/Vol] 7.1 g/dL 5.9-8.4 [facility] White blood cell (WBC) count Ordered By: Lety Marcelo on 02-06-2025 WBC (Bld) [#/Vol] 4.0 10*3/uL Low 4.4-11.0 [facility] C-REACTIVE PROTEINon 025 CRP [Mass/Vol] mg/L Normal <8.0 [facility] Comment on above: Performed By: #### 8 09, 09557, 69894, 928, 1299 #### [facility] [address], [address] [place] [address] Military Lawyer: Cuba Monk MD CBC (INCLUDES DIFF/PLT)on Basophils (Bld) [#/Vol] 0.039 10*3/uL Normal 0-200 [facility] Comment on above: Performed By: #### 8 09, 87428, 89041, 925, 2299 #### [facility] [address], [address] [place] [address] Military Lawyer: Cuba Monk MD Basophils/100 WBC (Bld) 0.8 % Normal [facility] Comment on above: Performed By: #### 8 09, 79107, 70797, 929, 1099 #### [facility] [address], [address] [place] [address] Military Lawyer: Cuba Monk MD Eosinophils (Bld) [#/Vol] 0.24 10*3/uL Normal 15-500 [facility] Comment on above: Performed By: #### 8 09, , , 92, 6399 #### [facility] of [place] [address] Military Lawyer: Cuba Monk MD Eosinophils/100 WBC (Bld) 4.9 % Normal [facility] Comment on above: Performed By: #### 8 09, , , 92, 6399 #### [facility] [place] [address] [employer] Lawyer: Cuba Monk MD Erythrocyte distribution width (RBC) [Ratio] 12.8 % Normal 11.0-15.0 [facility] Comment on above: Performed By: #### 8 09, , , 92, 63 #### [facility] [place] [address] Military Lawyer: Cuba Monk MD Hematocrit (Bld) [Volume fraction] 37.4 % Normal 35.0-45.0 [facility] Comment on above: Performed By: #### 8 09, , , 92, 6399 #### [facility] [place] [address] [employer] Lawyer: Cuba Monk MD Hemoglobin (Bld) [Mass/Vol] 12.6 g/dL Normal 11.7-15.5 [facility] Comment on above: Performed By: #### 8 , , , 92, 6399 #### [facility] [place] [address] Military Lawyer: Cuba Monk MD Lymphocytes (Bld) [#/Vol] 0.862 10*3/uL Normal 850-3900 [facility] Comment on above: Performed By: #### 8 , , , 92, 6399 #### [facility] of [place] [address] [address] [place] [address] Military Lawyer: Cuba Monk MD Lymphocytes/100 WBC (Bld) 17.6 % Normal [facility] Comment on above: Performed By: #### 8 , , , , 63 #### [facility] of [address], [address] [place] [address] Military Lawyer: Cuba Monk MD MCH (RBC) [Entitic mass] 32.0 pg Normal 27.0-33.0 [facility] Comment on above: Performed By: #### 8 , , , , 63 #### [facility] [place] [address] Military Lawyer: Cuba Monk MD MCHC (RBC) [Mass/Vol] 33.7 g/dL Normal 32.0-36.[address] [facility] Comment on above: Result Comment: For adults, a slight decrease in the calculated MCHC value (in the range of 30 to 32 g/dL) is most likely not clinically significant; however, it should be interpreted with caution in correlation with other red cell parameters and the patient's clinical condition. Performed By: #### 8 , , , , 63 #### [facility] [place] [address] [employer] Lawyer: Cuba Monk MD MCV (RBC) [Entitic vol] 94.9 fL Normal 80.0-100.0 [facility] Comment on above: Performed By: #### 8 , , , 92, 63 #### [facility] of [address], [address] [place] [address] Military Lawyer: Cuba Monk MD Monocytes (Bld) [#/Vol] 0.456 10*3/uL Normal 200-950 [facility] Comment on above: Performed By: #### 8 , , , 92, 6399 #### [facility] of [address], [address] [place] [address] Military Lawyer: Cuba Monk MD Monocytes/100 WBC (Bld) 9.3 % Normal [facility] Comment on above: Performed By: #### 8 09, , 39630, 927, 6399 #### [facility] [place] [address] Military Lawyer: Cuba Monk MD Neutrophils (Bld) [#/Vol] 3.303 10*3/uL Normal 8410-5239 [facility] Comment on above: Performed By: #### 8 09, , 18501, 927, 6399 #### [facility] [place] [address] Military Lawyer: Cuba Monk MD Neutrophils/100 WBC (Bld) 67.4 % Normal [facility] Comment on above: Performed By: #### 8 09, , 90622, 927, 6399 #### [facility] [place] [address] Military Lawyer: Cuba Monk MD Platelet mean volume (Bld) [Entitic vol] 10.7 fL Normal 7.5-12.5 [facility] Comment on above: Performed By: #### 8 09, , 97296, 927, 6399 #### [facility] [place] [address] Military Lawyer: Cuba Monk MD Platelets (Bld) [#/Vol] 214 10*3/uL Normal 140-400 [facility] Comment on above: Performed By: #### 8 09, , 95535, 927, 6399 #### [facility] [place] [address] Military Lawyer: Cuba Monk MD RBC (Bld) [#/Vol] 3.94 10*6/uL Normal 3.80-5.10 [facility] Comment on above: Performed By: #### 8 09, , 51917, 927, 6399 #### [facility] [place] [address] Military Lawyer: Cuba Monk MD WBC (Bld) [#/Vol] 4.9 10*3/uL Normal 3.8-10.8 [facility] Comment on above: Performed By: #### 8 09, 39391, 17382, 927, 6399 #### [facility] [place] [address] Military Lawyer: Cuba Monk MD COMPREHENSIVE METABOLIC PANE L W/ANION GAPon 12-21-2024 Albumin [Mass/Vol] 4.3 g/dL Normal 3.6-5.1 [facility] Comment on above: Order Comment: FASTI NG:NO FASTING: NO Performed By: #### 8 09, 48490, 19206, 927, 6399 #### [facility] [place] [address] Military Lawyer: Cuba Monk MD ALP [Catalytic activity/Vol] 41 U/L Normal 37-153 [facility] Comment on above: Order Comment: FASTI NG:NO FASTING: NO Performed By: #### 8 09, 52420, 78701, 927, 6399 #### [facility] [place] [address] Military Lawyer: Cbua Monk MD ALT [Catalytic activity/Vol] 26 U/L Normal 6-29 [facility] Comment on above: Order Comment: FASTI NG:NO FASTING: NO Performed By: #### 8 09, 00571, 77647, 927, 6399 #### [facility] [place] [address] Military Lawyer: Cuba Monk MD AST [Catalytic activity/Vol] 34 U/L Normal 10-35 [facility] Comment on above: Order Comment: FASTI NG:NO FASTING: NO Performed By: #### 8 09, 34490, 51994, 927, 6399 #### [facility] [place] [address] Military Lawyer: Cuba Monk MD Bilirubin [Mass/Vol] 0.5 mg/dL Normal 0.2-1.2 [facility] Comment on above: Order Comment: FASTI NG:NO FASTING: NO Performed By: #### 8 09, 29619, 18676, 927, 6399 #### [facility] [place] [address] Military Lawyer: Cuba Monk MD Calcium [Mass/Vol] 9.3 mg/dL Normal 8.6-10.4 [facility] Comment on above: Order Comment: FASTI NG:NO FASTING: NO Performed By: #### 8 09, , 59971, 92, 6399 #### [facility] [place] [address] Military Lawyer: Cuba Monk MD Chloride [Moles/Vol] 103 mmol/L Normal 98-110 [facility] Comment on above: Order Comment: FASTI NG:NO FASTING: NO Performed By: #### 8 09, , 80100, 92, 6399 #### [facility] [place] [address] Military Lawyer: Cuba Monk MD CO2 [Moles/Vol] 31 mmol/L Normal 20-32 [facility] Comment on above: Order Comment: FASTI NG:NO FASTING: NO Performed By: #### 8 09, 71380, 32571, 92, 6399 #### [facility] [place] [address] Military Lawyer: Cuba Monk MD Creatinine [Mass/Vol] 0.82 mg/dL Normal 0.60-1.00 [facility] Comment on above: Order Comment: FASTI NG:NO FASTING: NO Performed By: #### 8 09, 61955, 45670, 927, 6399 #### [facility] [place] [address] Military Lawyer: Cuba Monk MD ELECTROLYTE BALANCE 6 mmol/L (calc) Low 7-17 [facility] Comment on above: Order Comment: FASTI NG:NO FASTING: NO Performed By: #### 8 09, 13161, 71065, 927, 6399 #### [facility] [place] [address] Military Lawyer: Cuba Monk MD GFR/1.73 sq M.predicted among non-blacks MDRD (S/P/Bld) [Vol rate/Area] 73 mL/min/{1.73_m2} Normal > OR = 60 [facility] Comment on above: Order Comment: FASTI NG:NO FASTING: NO Performed By: #### 8 09, 06557, 61368, 927, 6399 #### [facility] [place] [address] Military Lawyer: Cuba Monk MD Glucose [Mass/Vol] 74 mg/dL Normal 65-139 [facility] Comment on above: Order Comment: FASTI NG:NO FASTING: NO Result Comment: Non-fasting reference interval Performed By: #### 8 09, , 01956, 927, 6399 #### [facility] [place] [address] Military Lawyer: [place] Monk MD Potassium [Moles/Vol] 4.4 mmol/L Normal 3.5-5.3 [facility] Comment on above: Order Comment: FASTI NG:NO FASTING: NO Performed By: #### 8 09, 51478, 29465, 92, 6399 #### [facility] [place] [address] Military Lawyer: Cuba Monk MD Protein [Mass/Vol] 6.7 g/dL Normal 6.1-8.1 [facility] Comment on above: Order Comment: FASTI NG:NO FASTING: NO Performed By: #### 8 09, 71542, 34121, 927, 6399 #### [facility] [place] [address] Military Lawyer: Cuba Monk MD Sodium [Moles/Vol] 140 mmol/L Normal 135-146 [facility] Comment on above: Order Comment: FASTI NG:NO FASTING: NO Performed By: #### 8 09, 09345, 05915, 92, 6399 #### [facility] [place] [address] Military Lawyer: Cuba Monk MD Urea nitrogen [Mass/Vol] 22 mg/dL Normal 7-25 [facility] Comment on above: Order Comment: FASTI NG:NO FASTING: NO Performed By: #### 8 09, , 88500, 92, 6399 #### [facility] [place] [address] Military Lawyer: Cuba Monk MD SED RATE BY MODIFIED WESTERG RENon 12-21-2024 SED RATE BY MODIFIED WESTERGREN 11 mm/h Normal < OR = 30 [facility] Comment on above: Performed By: #### 8 09, , 37642, , 6399 #### [facility] [place] [address] Military Lawyer: Cuba Monk MD TSH W/REFLEX TO FT4on 2024 TSH W/REFLEX TO FT4 2.74 mIU/L Normal 0.40-4.50 [facility] Comment on above: Performed By: #### 8 09, , 70252, 92, 6399 #### [facility] [place] [address] Military Lawyer: Cuba Monk MD VITAMIN B12on 12-21-2024 Cobalamin (Vitamin B12) [Mass/Vol] 569 pg/mL Normal 200-1100 [facility] Comment on above: Performed By: #### 8 09, 17204, 83148, 92, 1499 #### [facility] [place] [address] Military Lawyer: Cuba Monk MD XR LUMBAR SPINE 2-3 VIEWSon 12-20-2024 XR LUMBAR SPINE 2-3 VIEWS Interpreted By: Saulo Rolon, STUDY: XR LUMBAR SPINE 2-3 VIEWS INDICATION: Signs/Symptoms:left leg pain. COMPARISON: None ACCESSION NUMBER(S): [id number] ORDERING CLINICIAN: AKANKSHA MILLAN FINDINGS: Fairly advanced L3-S1 lumbar degenerative change. Alignment normal without fracture. IMPRESSION: Advanced L3-S1 lumbar degenerative change. Signed by: Saulo Rolon 12/21/2024 12:06 PM Dictation workstation: [id number] [facility] BI MAMMO BILATERAL DIAGNOSTI C TOMOSYNTHESISon 10-30-2024 BI MAMMO BILATERAL DIAGNOSTIC TOMOSYNTHESIS Interpreted By: Stephon Rendon, STUDY: BI MAMMO BILATERAL DIAGNOSTIC TOMOSYNTHESIS; 10/30/2024 1:25 pm ACCESSION NUMBER(S): [id number] ORDERING CLINICIAN: AILEEN SHOEMAKER INDICATION: Diagnostic mammogram, Signs/Symptoms:TENDER NESS BILATERAL. RIGHT BREAST LARGER THAN LEFT. NIPPLE ITCHING. COMPARISON: Digital mammograms dated 02/21/2024 FINDINGS: CC and MLO 2D digital mammograms and digital breast tomosynthesis images were obtained of the bilateral breasts. 3-D volume images were reconstructed in 4 views at an independent workstation as 1 mm slices through the breasts in both the CC and MLO projections. Density: There are scattered areas of fibroglandular density. No discrete mass or focal asymmetry is identified. No suspicious microcalcifications or foci of architectural distortion are seen. There has been no significant change. This study was interpreted with CAD. IMPRESSION: No mammographic evidence of malignancy. BI-RADS CATEGORY: BI-RADS Category: 1 Negative. Recommendation: Annual Screening. Recommended Date: 1 Year. Laterality: Bilateral. MACRO: None Signed by: Stephon Rendon 10/31/2024 9:26 AM Dictation workstation: [id number] [facility] Absolute lymphocyte countOrd ered By: Lety Marcelo on 10-18-2024 Lymphocytes Auto (Unsp spec) [#/Vol] 1.14 10*3/uL 0.83-4.51 [facility] Absolute neutrophil countOrd ered By: Lety Marcelo on 10-18-2024 Neutrophils (Bld) [#/Vol] 2.9 10*3/uL 2.0-7.7 [facility] Albumin to globulin ratioOrd ered By: Lety Marcelo on 10-18-2024 Albumin/Globulin [Mass ratio] 1.1 {ratio} 0.9-2.4 [facility] Automated lymphocyte count a s percentage of total leukocytesOrdered By: Lety Marcelo on 10-18-2024 Lymphocytes/100 WBC Auto (Unsp spec) 23.7 % 19-41 [facility] Basophil percentageOrdered B y: Lety Marcelo on 10-18-2024 Basophils/100 WBC (Bld) 0.6 % 0-1 [facility] Bilirubin, totalOrdered By: Letymirtha Marcelo on 10-18-2024 Bilirubin [Mass/Vol] 0.40 mg/dL 0.20-1.00 [facility] Comment on above: For patients on eltr ombopag therapy, use of Dimension [place] TBIL is not recommended. Blood urea nitrogen (BUN)/cr eatinine ratioOrdered By: Lety Marcelo on 10-18-2024 Urea nitrogen/Creatinine [Mass ratio] 24.8 mg/mg High 10-20 [facility] CBC W/Diff, Automatedon 09-27 Absolute Lymph 1.14 X10 3/uL Normal 0.83-4.51 [facility] Comment on above: Performed By: #### L 500.4050, L100.0100 #### [facility] [address] [place], [address] Absolute Neut 2.9 X10 3/uL Normal 2.0-7.7 [facility] Comment on above: Performed By: #### L 500.4050, L100.0100 #### [facility] [address] [place], [address] Basophils/100 WBC (Bld) 0.6 % Normal 0-1 [facility] Comment on above: Performed By: #### L 500.4050, L100.0100 #### [facility] [address] [place], [address] Eosinophils/100 WBC (Bld) 4.4 % Normal 0-5 [facility] Comment on above: Performed By: #### L 500.4050, L100.0100 #### [facility] [address] [place], [address] Erythrocyte distribution width (RBC) [Ratio] 13.3 % Normal 11.6-14.6 [facility] Comment on above: Performed By: #### L 500.4050, L100.0100 #### [facility] [address] [place], [address] Hematocrit (Bld) [Volume fraction] 37.8 % Normal 37-47 [facility] Comment on above: Performed By: #### L 500.4050, L100.0100 #### [facility] [address] [place], [address] Hemoglobin (Bld) [Mass/Vol] 12.3 g/dL Normal 12.0-15.0 [facility] Comment on above: Performed By: #### L 500.4050, L100.0100 #### [facility] [address] [place], [address] IG% 0.400 Normal 0.0-0.9 [facility] Comment on above: Result Comment: IG% - Immature Granulocytes (promyelocytes, myelocytes and metamyelocytes) > 1% indicates that a LEFT SHIFT is Present. Performed By: #### L 500.4050, L100.0100 #### [facility] [address] [place], [address] Lymphocytes/100 WBC (Bld) 23.7 % Normal 19-41 [facility] Comment on above: Performed By: #### L 500.4050, L100.0100 #### [facility] [address] [place], [address] MCH (RBC) [Entitic mass] 31.1 pg Normal 27.0-32.0 [facility] Comment on above: Performed By: #### L 500.4050, L100.0100 #### [facility] [address] [place], [address] MCHC (RBC) [Mass/Vol] 32.5 g/dL Normal 32-36 [facility] Comment on above: Performed By: #### L 500.4050, L100.0100 #### [facility] [address] [place], [address] MCV (RBC) [Entitic vol] 95.7 fL Normal 81-99 [facility] Comment on above: Performed By: #### L 500.4050, L100.0100 #### [facility] [address] [place], [address] Monocytes/100 WBC (Bld) 10.2 % High 0-10 [facility] Comment on above: Performed By: #### L 500.4050, L100.0100 #### [facility] [address] [place], [address] Neutrophils/100 WBC (Bld) 60.7 % Normal 47-70 [facility] Comment on above: Performed By: #### L 500.4050, L100.0100 #### [facility] [address] [place], [address] Nucleated RBC (Bld) [#/Vol] 0 10*3/uL Normal 0-5 [facility] Comment on above: Performed By: #### L 500.4050, L100.0100 #### [facility] [address] [place], [address] Platelet mean volume (Bld) [Entitic vol] 10.1 fL Normal 6.2-12.0 [facility] Comment on above: Performed By: #### L 500.4050, L100.0100 #### [facility] [address] [place], [address] Platelets (Bld) [#/Vol] 187 10*3/uL Normal 150-450 [facility] Comment on above: Performed By: #### L 500.4050, L100.0100 #### [facility] [address] [place], [address] RBC (Bld) [#/Vol] 3.95 10*6/uL Low 4.2-5.4 [facility] Comment on above: Performed By: #### L 500.4050, L100.0100 #### [facility] [address] [place], [address] RDW SD 46.6 fl High 35.1-43.9 [facility] Comment on above: Performed By: #### L 500.4050, L100.0100 #### [facility] [address] [place], [address] WBC (Bld) [#/Vol] 4.8 10*3/uL Normal 4.4-11.0 [facility] Comment on above: Performed By: #### L 500.4050, L100.0100 #### [facility] [address] [place], [address] Carbon dioxide measurementOr dered By: Lety Marcelo on 10-18-2024 CO2 [Moles/Vol] 30.0 mmol/L 21.0-32.0 [facility] Chloride measurementOrdered By: Lety Marcelo on 10-18-2024 Chloride [Moles/Vol] 102 mmol/L 98-107 [facility] Comprehensive Metabolic Prof ilon 10-18-2024 Albumin [Mass/Vol] 3.9 g/dL Normal 3.2-5.0 [facility] Comment on above: Performed By: #### L 500.4050, L100.0100 #### [facility] [address] [place], [address] Albumin/Globulin [Mass ratio] 1.1 {ratio} Normal 0.9-2.4 [facility] Comment on above: Performed By: #### L 500.4050, L100.0100 #### [facility] [address] [place], [address] ALK P 45 U/L Normal 45-117 [facility] Comment on above: Performed By: #### L 500.4050, L100.0100 #### [facility] [address] [place], [address] ALT [Catalytic activity/Vol] 42 U/L Normal 13-56 [facility] Comment on above: Performed By: #### L 500.4050, L100.0100 #### [facility] [address] [place], [address] AST [Catalytic activity/Vol] 39 U/L High 15-37 [facility] Comment on above: Performed By: #### L 500.4050, L100.0100 #### [facility] [address] [place], [address] Bilirubin [Mass/Vol] 0.40 mg/dL Normal 0.20-1.00 [facility] Comment on above: Result Comment: For patients on eltrombopag therapy, use of Dimension [place] TBIL is not recommended. Performed By: #### L 500.4050, L100.0100 #### [facility] [address] [place], [address] BUN/CRE 24.8 RATIO High 10-20 [facility] Comment on above: Performed By: #### L 500.4050, L100.0100 #### [facility] [address] [place], [address] CA,Total 9.7 mg/dL Normal 8.5-10.1 [facility] Comment on above: Performed By: #### L 500.4050, L100.0100 #### [facility] [address] [place], [id number] Chloride [Moles/Vol] 102 mmol/L Normal 98-107 [facility] Comment on above: Performed By: #### L 500.4050, L100.0100 #### [facility] [address] [place], [address] CO2 [Moles/Vol] 30.0 mmol/L Normal 21.0-32.0 [facility] Comment on above: Performed By: #### L 500.4050, L100.0100 #### [facility] [address] [place], [address] Creatinine [Mass/Vol] 1.09 mg/dL High 0.55-1.02 [facility] Comment on above: Result Comment: The validity of the calculated GFR GFRAA in patients over 70 years has not been determined. Clinical correlation is essential. Performed By: #### L 500.4050, L100.0100 #### [facility] [address] [place], [address] EST GFR - AA 62 mL/min Normal >60 [facility] Comment on above: Result Comment: Afri can Icelandic GFR Calc Performed By: #### L 500.4050, L100.0100 #### [facility] [address] [place], [address] GAP 3 Low 5-15 [facility] Comment on above: Performed By: #### L 500.4050, L100.0100 #### [facility] [address] [place], [address] GFR/1.73 sq M.predicted among non-blacks MDRD (S/P/Bld) [Vol rate/Area] 51 mL/min/{1.73_m2} Low >60 [facility] Comment on above: Result Comment: Non- GFR Calc Performed By: #### L 500.4050, L100.0100 #### [facility] [address] [place], [address] Globulin (S) [Mass/Vol] 3.5 g/dL Normal 2.2-4.2 [facility] Comment on above: Performed By: #### L 500.4050, L100.0100 #### [facility] [address] [place], [address] Glucose [Mass/Vol] 94 mg/dL Normal 74-106 [facility] Comment on above: Performed By: #### L 500.4050, L100.0100 #### [facility] [address] [place], [address] Potassium [Moles/Vol] 4.2 mmol/L Normal 3.5-5.1 [facility] Comment on above: Performed By: #### L 500.4050, L100.0100 #### [facility] [address] [place], [address] Sodium [Moles/Vol] 135 mmol/L Low 136-145 [facility] Comment on above: Performed By: #### L 500.4050, L100.0100 #### [facility] [address] [place], [address] T PROT 7.4 g/dL Normal 6.4-8.2 [facility] Comment on above: Performed By: #### L 500.4050, L100.0100 #### [facility] [address] [place], [address] Urea nitrogen [Mass/Vol] 27 mg/dL High 7-18 [facility] Comment on above: Performed By: #### L 500.4050, L100.0100 #### [facility] [address] [place], [address] Eosinophil percentageOrdered By: Lety Marcelo on 10-18-2024 Eosinophils/100 WBC (Bld) 4.4 % 0-5 [facility] Erythrocyte distribution wid th ratioOrdered By: Lety Marcelo on 10-18-2024 Erythrocyte distribution width (RBC) [Ratio] 13.3 % 11.6-14.6 [facility] Erythrocyte distribution wid th standard deviationOrdered By: Lety Marcelo on 10-18-2024 Erythrocyte distribution width (RBC) [Ratio] 46.6 fl High 35.1-43.9 [facility] Glomerular filtration rate ( GFR) estimationOrdered By: Lety Marcelo on 10-18-2024 GFR/1.73 sq M.predicted among non-blacks MDRD (S/P/Bld) [Vol rate/Area] 51 mL/min/{1.73_m2} Low >60 [facility] Comment on above: Non- GFR Calc Glucose measurementOrdered B y: Lety Marcelo on 10-18-2024 Glucose [Mass/Vol] 94 mg/dL 74-106 [facility] Hematocrit Auto (Bld) [Volum e fraction]Ordered By: Lety Marcelo on 10-18-2024 Hematocrit (Bld) [Volume fraction] 37.8 % 37-47 [facility] Hemoglobin measurementOrdere d By: Lety Marcelo on 10-18-2024 Hemoglobin (Bld) [Mass/Vol] 12.3 g/dL 12.0-15.0 [facility] Immature granulocytes/100 WB C Auto (Bld)Ordered By: Lety Marcelo 10-18-2024 Immature granulocytes/100 WBC (Bld) 0.400 % 0.0-0.9 [facility] Comment on above: IG% - Immature Granu locytes (promyelocytes, myelocytes and metamyelocytes) > 1% indicates that a LEFT SHIFT is Present. Laboratory - Chemistry and C hemistry - challengeOrdered By: Lety Marcelo on 10-18-2024 AST [Catalytic activity/Vol] 39 U/L High 15-37 [facility] MCV (mean corpuscular volume ) determinationOrdered By: Lety Marcelo 10-18-2024 MCV (RBC) [Entitic vol] 95.7 fL 81-99 [facility] Mean corpuscular hemoglobin (MCH) determinationOrdered By: Lety Marcelo on 10-18-2024 MCH (RBC) [Entitic mass] 31.1 pg 27.0-32.0 [facility] Mean corpuscular hemoglobin concentration (MCHC) determinationOrdered By: Lety Marcelo on 10-18-2024 MCHC (RBC) [Mass/Vol] 32.5 g/dL 32-36 [facility] Mean platelet volume determi nationOrdered By: Lety Marcelo on 10-18-2024 Platelet mean volume (Bld) [Entitic vol] 10.1 fL 6.2-12.0 [facility] Monocyte percentageOrdered B y: Lety Marcelo on 10-18-2024 Monocytes/100 WBC (Bld) 10.2 % High 0-10 [facility] Neutrophil percentageOrdered By: Lety Marcelo on 10-18-2024 Neutrophils/100 WBC (Bld) 60.7 % 47-70 [facility] Nucleated red blood cell per centageOrdered By: Lety Marcelo on 10-18-2024 Nucleated RBC/100 WBC (Bld) [Ratio] 0 % 0-5 [facility] Platelet countOrdered By: Nick Marcelo on 10-18-2024 Platelets (Bld) [#/Vol] 187 10*3/uL 150-450 [facility] Potassium measurementOrdered By: Lety Marcelo on 10-18-2024 Potassium [Moles/Vol] 4.2 mmol/L 3.5-5.1 [facility] RBC Auto (Bld) [#/Vol]Ordere d By: Lety Marcelo on 10-18-2024 RBC (Bld) [#/Vol] 3.95 10*6/uL Low 4.2-5.4 [facility] Serum anion gap measurementO rdered By: Lety Marcelo on 10-18-2024 Anion gap [Moles/Vol] 3 mmol/L Low 5-15 [facility] Serum globulin measurementOr dered By: Lety Marcelo on 10-18-2024 Globulin (S) [Mass/Vol] 3.5 g/dL 2.2-4.2 [facility] Serum or plasma alanine steinberg otransferase (ALT) measurementOrdered By: Lety Marcelo on 10-18-2024 ALT [Catalytic activity/Vol] 42 U/L 13-56 [facility] Serum or plasma albumin koki urement (mass/volume)Ordered By: Lety Marcelo on 10-18-2024 Albumin [Mass/Vol] 3.9 g/dL 3.2-5.0 [facility] Serum or plasma alkaline lisa sphatase measurementOrdered By: Lety Marcelo on 10-18-2024 ALP [Catalytic activity/Vol] 45 U/L 45-117 [facility] Serum or plasma calcium koki urement (mass/volume)Ordered By: Lety Marcelo on 10-18-2024 Calcium [Mass/Vol] 9.7 mg/dL 8.5-10.1 [facility] Serum or plasma creatinine m easurement (mass/volume)Ordered By: Lety Marcelo on 10-18-2024 Creatinine [Mass/Vol] 1.09 mg/dL High 0.55-1.02 [facility] Comment on above: The validity of the calculated GFR & GFRAA in patients over 70 years has not been determined. Clinical correlation is essential. Serum or plasma urea nitroge n measurement (mass/volume)Ordered By: Lety Marcelo on 10-18-2024 Urea nitrogen [Mass/Vol] 27 mg/dL High 7-18 [facility] Sodium levelOrdered By: Srinivasa Marcelo on 10-18-2024 Sodium [Moles/Vol] 135 mmol/L Low 136-145 [facility] Total proteinOrdered By: Yasmine Marcelo on 10-18-2024 Protein [Mass/Vol] 7.4 g/dL 6.4-8.2 [facility] White blood cell (WBC) count Ordered By: Lety Marcelo on 10-18-2024 WBC (Bld) [#/Vol] 4.8 10*3/uL 4.4-11.0 [facility] US Heart TransthoracicOrdere d By: Socrates Mills on 08-30-2024 Aortic Valve Area by Continuity of Peak Velocity 1.93 cm2 [facility] Work Phone: Aortic Valve Area by Continuity of VTI 2.19 cm2 [facility] Work Phone: AV mn grad 3 mmHg [facility] Work Phone: AV pk grad 6 mmHg [facility] Work Phone: AV pk hardeep 1.22 m/s [facility] Work Phone: LA vol index A/L 9.1 ml/m2 [facility] Work Phone: LV A4C EF 68.5 [facility] Work Phone: LV Biplane EF 68 % [facility] Work Phone: LV EF 63 % [facility] Work Phone: LVIDd 4.6 cm [facility] Work Phone: LVOT diam 1.8 cm [facility] Work Phone: MV E/A ratio 1.68 [facility] Work Phone: RV free wall pk S' 13.6 cm/s [facility] Work Phone: Tricuspid annular plane systolic excursion 2.5 cm [facility] Work Phone: [facility] Work Phone: [place] [address] [phone], TRANSTHORACIC ECHOCARDIOGRAM REPORT Patient Name: KIM GODDARD AJ De Luna Physician: [id number] Socrates Mills MD Study Date: 08/29/2024 Ordering Provider: [id number] MILAN REID MRN/PID: [id number] Fellow: Nurse: Priyanka Nichole RN 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: 8 1945 / 79 years Senior Product Development Scientist: Tomime Marcos RDCS Gender Assigned at F Additional Staff: : Height: 167.64 cm Admit Date: Weight: 62.60 kg Admission Status: Outpatient BSA / BMI: 1.71 m2 / 22.27 Department Location: [facility] Echo Lab kg/m2 Blood Pressure: 178 /92 mmHg Study Type: TRANSTHORACIC ECHO (TTE) COMPLETE Diagnosis/ICD: Lyme disease, unspecified-A69.20 CPT Codes: Echo Complete w Full Doppler-41203 Study Detail: The following Echo studies were performed: 2D, M-Mode, Doppler and color flow. Definity used as a contrast agent for endocardial border definition. Total contrast used for this procedure was 2.00cc mL via IV push. PHYSICIAN INTERPRETATION: Left Ventricle: Left ventricular ejection fraction is normal, by visual estimate at 60-65%. There are no regional wall motion abnormalities. The left ventricular cavity size is normal. There is normal septal and normal posterior left ventricular wall thickness. Spectral Doppler shows a normal pattern of [...] The aortic valve is trileaflet. There is mild aortic valve cusp calcification. There is mild aortic valve thickening. The aortic valve dimensionless index is 0.86. There is trace aortic valve regurgitation. The peak instantaneous gradient of the aortic valve is 6 mmHg. The mean gradient of the aortic valve is 3 mmHg. Mitral Valve: The mitral valve is mildly thickened. There is mild mitral valve regurgitation. Tricuspid Valve: The tricuspid valve is structurally normal. No evidence of tricuspid regurgitation. Pulmonic Valve: The pulmonic valve is structurally normal. There is no indication of pulmonic valve regurgitation. Pericardium: No pericardial effusion noted. Aorta: The aortic root is normal. CONCLUSIONS: 1. Left ventricular ejection fraction is normal, by visual estimate at 60-65%. 2. There is normal right ventricular global systolic function. QUANTITATIVE DATA SUMMARY: 2D MEASUREMENTS: Normal Ranges: Ao Root d: 2.70 cm (2.0-3.7cm) LAs: 2.80 cm (2.7-4.0cm) IVSd: 0.88 cm (0.6-1.1cm) LVPWd: 0.84 cm (0.6-1.1cm) LVIDd: 4.60 cm (3.9-5.9cm) LVIDs: 2.69 cm LV Mass Index: 76.0 g/m2 LV % FS 41.5 % LA VOLUME: Normal Ranges: LA Vol A4C: 14.2 ml (22+/-6mL/m2) LA Vol A2C: 15.7 ml LA Vol BP: 15.5 ml LA Vol Index A4C: 8.3ml/m2 LA Vol Index A2C: 9.2 ml/m2 LA Vol Index BP: 9.1 ml/m2 LA Area A4C: 7.8 cm2 LA Area A2C: 8.5 cm2 LA Major Rociada A4C: 3.6 cm LA Major [place]ociada A2C: 3.9 cm LA Volume Index: 7.9 ml/m2 LA Vol A4C: 13.5 ml LA Vol A2C: 15.9 ml LA Vol Index BSA: 8.6 ml/m2 LV SYSTOLIC FUNCTION BY 2D PLANIMETRY (MOD): Normal Ranges: EF-A4C View: 69 % (>=55%) EF-A2C View: 69 % EF-Biplane: 68 % EF-Visual: 63 % LV EF Reported: 63 % LV DIASTOLIC FUNCTION: Normal Ranges: MV Peak E: 1.17 m/s (0.7-1.2 m/s) MV Peak A: 0.70 m/s (0.42-0.7 m/s) E/A Ratio: 1.68 (1.0-2.2) MV e' 0.096 m/s (>8.0) MV lateral e' 0.10 m/s MV medial e' 0.09 m/s E/e' Ratio: 12.23 (<8.0) MITRAL VALVE: Normal Ranges: MV DT: 211 msec (150-240msec) MITRAL INSUFFICIENCY: Normal Ranges: MR VTI: 223.00 cm MR Vmax: 532.00 cm/s AORTIC VALVE: Normal Ranges: AoV Vmax: 1.22 m/s (<=1.7m/s) AoV Peak P.0 mmHg (<20mmHg) AoV Mean P.0 mmHg (1.7-11.5mmHg) LVOT Max Hadreep: 0.92 m/s (<=1.1m/s) AoV VTI: 26.50 cm (18-25cm) LVOT VTI: 22.80 cm LVOT Diameter: 1.80 cm (1.8- (more content not included)... Socrates Jarvis MD - 08/30/2024 [place] [address] [phone], TRANSTHORACIC ECHOCARDIOGRAM REPORT Patient Name: KIM ROCHA Reading Physician: [id number] Socrates Mills MD Study Date: 08/29/2024 Ordering Provider: [id number] MILAN REID MRN/PID: [id number] Fellow: Nurse: Priyanka Nichole RN 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: 8 1945 / 79 years Senior Product Development Scientist: Tommie Marcos RDCS Gender Assigned at F Additional Staff: : Height: 167.64 cm Admit Date: Weight: 62.60 kg Admission Status: Outpatient BSA / BMI: 1.71 m2 / 22.27 Department Location: [facility] Echo Lab kg/m2 Blood Pressure: 178 /92 mmHg Study Type: TRANSTHORACIC ECHO (TTE) COMPLETE Diagnosis/ICD: Lyme disease, unspecified-A69.20 CPT Codes: Echo Complete w Full Doppler-63390 Study Detail: The following Echo studies were performed: 2D, M-Mode, Doppler and color flow. Definity used as a contrast agent for endocardial border definition. Total contrast used for this procedure was 2.00cc mL via IV push. PHYSICIAN INTERPRETATION: Left Ventricle: Left ventricular ejection fraction is normal, by visual estimate at 60-65%. There are no regional wall motion abnormalities. The left ventricular cavity size is normal. There is normal septal and normal posterior left ventricular wall thickness. Spectral Doppler shows a normal pattern of [...] The aortic valve is trileaflet. There is mild aortic valve cusp calcification. There is mild aortic valve thickening. The aortic valve dimensionless index is 0.86. There is trace aortic valve regurgitation. The peak instantaneous gradient of the aortic valve is 6 mmHg. The mean gradient of the aortic valve is 3 mmHg. Mitral Valve: The mitral valve is mildly thickened. There is mild mitral valve regurgitation. Tricuspid Valve: The tricuspid valve is structurally normal. No evidence of tricuspid regurgitation. Pulmonic Valve: The pulmonic valve is structurally normal. There is no indication of pulmonic valve regurgitation. Pericardium: No pericardial effusion noted. Aorta: The aortic root is normal. CONCLUSIONS: 1. Left ventricular ejection fraction is normal, by visual estimate at 60-65%. 2. There is normal right ventricular global systolic function. QUANTITATIVE DATA SUMMARY: 2D MEASUREMENTS: Normal Ranges: Ao Root d: 2.70 cm (2.0-3.7cm) LAs: 2.80 cm (2.7-4.0cm) IVSd: 0.88 cm (0.6-1.1cm) LVPWd: 0.84 cm (0.6-1.1cm) LVIDd: 4.60 cm (3.9-5.9cm) LVIDs: 2.69 cm LV Mass Index: 76.0 g/m2 LV % FS 41.5 % LA VOLUME: Normal Ranges: LA Vol A4C: 14.2 ml (22+/-6mL/m2) LA Vol A2C: 15.7 ml LA Vol BP: 15.5 ml LA Vol Index A4C: 8.3ml/m2 LA Vol Index A2C: 9.2 ml/m2 LA Vol Index BP: 9.1 ml/m2 LA Area A4C: 7.8 cm2 LA Area A2C: 8.5 cm2 LA Major Rociada A4C: 3.6 cm LA Major Rociada A2C: 3.9 cm LA Volume Index: 7.9 ml/m2 LA Vol A4C: 13.5 ml LA Vol A2C: 15.9 ml LA Vol Index BSA: 8.6 ml/m2 LV SYSTOLIC FUNCTION BY 2D PLANIMETRY (MOD): Normal Ranges: EF-A4C View: 69 % (>=55%) EF-A2C View: 69 % EF-Biplane: 68 % EF-Visual: 63 % LV EF Reported: 63 % LV DIASTOLIC FUNCTION: Normal Ranges: MV Peak E: 1.17 m/s (0.7-1.2 m/s) MV Peak A: 0.70 m/s (0.42-0.7 m/s) E/A Ratio: 1.68 (1.0-2.2) MV e' 0.096 m/s (>8.0) MV lateral e' 0.10 m/s MV medial e' 0.09 m/s E/e' Ratio: 12.23 (<8.0) MITRAL VALVE: Normal Ranges: MV DT: 211 msec (150-240msec) MITRAL INSUFFICIENCY: Normal Ranges: MR VTI: 223.00 cm MR Vmax: 532.00 cm/s AORTIC VALVE: Normal Ranges: AoV Vmax: 1.22 m/s (<=1.7m/s) AoV Peak P.0 mmHg (<20mmHg) AoV Mean P.0 mmHg (1.7-11.5mmHg) LVOT Max Hardeep: 0.92 m/s (<=1.1m/s) AoV VTI: 26.50 cm (18-25cm) LVOT VTI: 22.80 cm LVOT Diameter: 1.80 cm (1.8-2.4cm) AoV Area, VTI: 2.19 cm2 (2.5-5.5cm2) AoV Area,Vmax: 1.93 cm2 (2.5-4.5cm2) AoV Dimensionless Index: 0.86 RIGHT VENTRICLE: RV Basal 3.82 cm RV Mid 2.17 cm RV Major 6.6 cm TAPSE: 25.4 mm RV s' 0.14 m/s [id number] Socrates Mills MD Electronically signed on 08/30/2024 at 12:55:43 PM Final [facility] Work Phone: TRANSTHORACIC ECHO (TTE) COM PLETEon 08-29-2024 TRANSTHORACIC ECHO (TTE) [place] [address] [phone], TRANSTHORACIC ECHOCARDIOGRAM REPORT Patient Name: KIM ROCHA Annamarie Physician: [id number] Mills MD Study Date: 08/29/2024 Ordering Provider: [id number] MILAN REID MRN/PID: [id number] Fellow: Nurse: Priyanka Nichole RN 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: 8 1945 / 79 years Senior Product Development Scientist: Tommie Marcos RDCS Gender Assigned at F Additional Staff: : Height: 167.64 cm Admit Date: Weight: 62.60 kg Admission Status: Outpatient BSA / BMI: 1.71 m2 / 22.27 Department Location: [facility] Echo Lab kg/m2 Blood Pressure: 178 /92 mmHg Study Type: TRANSTHORACIC ECHO (TTE) COMPLETE Diagnosis/ICD: Lyme disease, unspecified-A69.20 CPT Codes: Echo Complete w Full Doppler-21546 Study Detail: The following Echo studies were performed: 2D, M-Mode, Doppler and color flow. Definity used as a contrast agent for endocardial border definition. Total contrast used for this procedure was 2.00cc mL via IV push. PHYSICIAN INTERPRETATION: Left Ventricle: Left ventricular ejection fraction is normal, by visual estimate at 60-65%. There are no regional wall motion abnormalities. The left ventricular cavity size is normal. There is normal septal and normal posterior left ventricular wall thickness. Spectral Doppler shows a normal pattern of [...] The aortic valve is trileaflet. There is mild aortic valve cusp calcification. There is mild aortic valve thickening. The aortic valve dimensionless index is 0.86. There is trace aortic valve regurgitation. The peak instantaneous gradient of the aortic valve is 6 mmHg. The mean gradient of the aortic valve is 3 mmHg. Mitral Valve: The mitral valve is mildly thickened. There is mild mitral valve regurgitation. Tricuspid Valve: The tricuspid valve is structurally normal. No evidence of tricuspid regurgitation. Pulmonic Valve: The pulmonic valve is structurally normal. There is no indication of pulmonic valve regurgitation. Pericardium: No pericardial effusion noted. Aorta: The aortic root is normal. CONCLUSIONS: 1. Left ventricular ejection fraction is normal, by visual estimate at 60-65%. 2. There is normal right ventricular global systolic function. QUANTITATIVE DATA SUMMARY: 2D MEASUREMENTS: Normal Ranges: Ao Root d: 2.70 cm (2.0-3.7cm) LAs: 2.80 cm (2.7-4.0cm) IVSd: 0.88 cm (0.6-1.1cm) LVPWd: 0.84 cm (0.6-1.1cm) LVIDd: 4.60 cm (3.9-5.9cm) LVIDs: 2.69 cm LV Mass Index: 76.0 g/m2 LV % FS 41.5 % LA VOLUME: Normal Ranges: LA Vol A4C: 14.2 ml (22+/-6mL/m2) LA Vol A2C: 15.7 ml LA Vol BP: 15.5 ml LA Vol Index A4C: 8.3ml/m2 LA Vol Index A2C: 9.2 ml/m2 LA Vol Index BP: 9.1 ml/m2 LA Area A4C: 7.8 cm2 LA Area A2C: 8.5 cm2 LA Major Rociada A4C: 3.6 cm LA Major Rociada A2C: 3.9 cm LA Volume Index: 7.9 ml/m2 LA Vol A4C: 13.5 ml LA Vol A2C: 15.9 ml LA Vol Index BSA: 8.6 ml/m2 LV SYSTOLIC FUNCTION BY 2D PLANIMETRY (MOD): Normal Ranges: EF-A4C View: 69 % (>=55%) EF-A2C View: 69 % EF-Biplane: 68 % EF-Visual: 63 % LV EF Reported: 63 % LV DIASTOLIC FUNCTION: Normal Ranges: MV Peak E: 1.17 m/s (0.7-1.2 m/s) MV Peak A: 0.70 m/s (0.42-0.7 m/s) E/A Ratio: 1.68 (1.0-2.2) MV e' 0.096 m/s (>8.0) MV lateral e' 0.10 m/s MV medial e' 0.09 m/s E/e' Ratio: 12.23 (<8.0) MITRAL VALVE: Normal Ranges: MV DT: 211 msec (150-240msec) MITRAL INSUFFICIENCY: Normal Ranges: MR VTI: 223.00 cm MR Vmax: 532.00 cm/s AORTIC VALVE: Normal Ranges: AoV Vmax: 1.22 m/s (<=1.7m/s) AoV Peak P.0 mmHg (<20mmHg) AoV Mean P.0 mmHg (1.7-11.5mmHg) LVOT Max Hardeep: 0.92 m/s (<=1.1m/s) AoV VTI: 26.50 cm (18-25cm) LVOT VTI: 22.80 cm LVOT Diameter: 1.80 cm (1.8-2.4cm) AoV Area, VTI: 2.19 cm2 (2.5-5.5cm2) AoV Area,Vmax: 1.93 cm2 (2.5-4.5cm2) AoV Dimensionless Index: 0.86 RIGHT VENTRICLE: RV Basal 3.82 cm RV Mid 2.17 cm RV Major 6.6 cm TAPSE: 25.4 mm RV s' 0.14 m/s [id number] Socrates Mills MD Electronically signed on 08/30/2024 at 12:55:43 PM Final Normal [facility] C reactive proteinon 024 CRP [Mass/Vol] mg/L Normal <1.00 [facility] Comment on above: Performed By: #### 5 0957-0 #### KEY ROQUE ([id number]) [facility] ([facility]) [address] [place] [address] CBC W Auto Differential pane l (Bld)Ordered By: Tyron Morales on 05-01-2024 Basophils (Bld) [#/Vol] 0.03 10*3/uL [facility] Basophils/100 WBC (Bld) 0.7 % 0.0 - 2.0 % [facility] Eosinophils (Bld) [#/Vol] 0.12 10*3/uL [facility] Comment on above: Corrected result: Pr eviously reported as 0.11 x10*3/uL (reference range: 0.00-0.40 x10*3/uL) on 05/01/2024 at 1530 EDT. Eosinophils/100 WBC (Bld) 2.5 % 0.0 - 6.0 % [facility] Erythrocyte distribution width (RBC) [Ratio] 14.2 % 11.5 - 14.5 % [facility] Hematocrit (Bld) [Volume fraction] 35.6 % Low 36.0 - 46.0 % [facility] Comment on above: Corrected result: Pr eviously reported as 32.4 % (reference range: 36.0-46.0 %) on 05/01/2024 at 1530 EDT. Hemoglobin (Bld) [Mass/Vol] 11.7 g/dL Low 12.0 - 16.0 g/dL [facility] Comment on above: Corrected result: Pr eviously reported as 10.7 g/dL (reference range: 12.0-16.0 g/dL) on 05/01/2024 at 1530 EDT. Immature granulocytes (Bld) [#/Vol] 0 10*3/uL [facility] Immature granulocytes/100 WBC (Bld) 0 % 0.0 - 0.9 % [facility] Comment on above: Immature Granulocyte Count (IG) includes promyelocytes, myelocytes and metamyelocytes but does not include bands. Percent differential counts (%) should be interpreted in the context of the absolute cell counts (cells/UL). Interpretation and review of laboratory results Abnormal [facility] Lymphocytes (Bld) [#/Vol] 1.47 10*3/uL [facility] Comment on above: Corrected result: Pr eviously reported as 1.34 x10*3/uL (reference range: 0.80-3.00 x10*3/uL) on 05/01/2024 at 1530 EDT. Lymphocytes/100 WBC (Bld) 30.7 % 13.0 - 44.0 % [facility] MCH (RBC) [Entitic mass] 31.5 pg 26.0 - 34.0 pg [facility] MCHC (RBC) [Mass/Vol] 33 g/dL 32.0 - 36.0 g/dL [facility] MCV (RBC) [Entitic vol] 95 fL 80 - 100 fL [facility] Monocytes (Bld) [#/Vol] 0.47 10*3/uL [facility] Comment on above: Corrected result: Pr eviously reported as 0.43 x10*3/uL (reference range: 0.05-0.80 x10*3/uL) on 05/01/2024 at 1530 EDT. Monocytes/100 WBC (Bld) 9.8 % 2.0 - 10.0 % [facility] Neutrophils (Bld) [#/Vol] 2.7 10*3/uL [facility] Comment on above: Percent differential counts (%) should be interpreted in the context of the absolute cell counts (cells/uL). Corrected result: Previously reported as 2.46 x10*3/uL (reference range: 1.60-5.50 x10*3/uL) on 05/01/2024 at 1530 EDT. Neutrophils/100 WBC (Bld) 56.3 % 40.0 - 80.0 % [facility] Nucleated RBC/100 WBC (Bld) [Ratio] 0 % [facility] Platelets (Bld) [#/Vol] 172 10*3/uL [facility] Comment on above: Corrected result: Pr eviously reported as 156 x10*3/uL (reference range: 150-450 x10*3/uL) on 05/01/2024 at 1530 EDT. RBC (Bld) [#/Vol] 3.74 10*6/uL [facility] Comment on above: Corrected result: Pr eviously reported as 3.40 x10*6/uL (reference range: 4.00-5.20 x10*6/uL) on 05/01/2024 at 1530 EDT. WBC (Bld) [#/Vol] 4.8 10*3/uL [facility] Comment on above: Corrected result: Pr eviously reported as 4.4 x10*3/uL (reference range: 4.4-11.3 x10*3/uL) on 05/01/2024 at 1530 EDT. [facility] Comprehensive metabolic 2000 panelon 05-01-2024 Albumin BCP dye [Mass/Vol] 4.1 g/dL Normal 3.4-5.0 [facility] Comment on above: Performed By: #### 5 0957-0 #### KEY ROQUE ([id number]) [facility] ([facility]) [address] [place] [address] ALP [Catalytic activity/Vol] 43 U/L Normal 33-136 [facility] Comment on above: Performed By: #### 5 0957-0 #### SHAHID NEVAREZ ([id number]) [facility] ([facility]) [address] [place] [address] ALT With P-5'-P [Catalytic activity/Vol] 32 U/L Normal 7-45 [facility] Comment on above: Result Comment: Mimi ents treated with Sulfasalazine may generate falsely decreased results for ALT. Performed By: #### 5 0957-0 #### SHAHID NEVAREZ ([id number]) [facility] ([facility]) [address] [place] [address] Anion gap [Moles/Vol] 8 mmol/L Low 10-20 [facility] Comment on above: Performed By: #### 5 57-0 #### SHAHID NEVAREZ ([id number]) [facility] ([facility]) [address] [place] [address] AST With P-5'-P [Catalytic activity/Vol] 39 U/L Normal 9-39 [facility] Comment on above: Performed By: #### 5 57-0 #### SHAHID NEVAREZ ([id number]) [facility] ([facility]) [address] [place] [address] Bilirubin [Mass/Vol] 0.5 mg/dL Normal 0.0-1.2 [facility] Comment on above: Performed By: #### 5 0957-0 #### SHAHID NEVAREZ ([id number]) [facility] ([facility]) [address] [place] [address] Calcium [Mass/Vol] 9.7 mg/dL Normal 8.6-10.3 [facility] Comment on above: Performed By: #### 5 0957-0 #### SHAHID NEVAREZ ([id number]) [facility] ([facility]) [address] [place] [address] 15648 Chloride [Moles/Vol] 102 mmol/L Normal 98-107 [facility] Comment on above: Performed By: #### 5 0957-0 #### SHAHID NEVAREZ ([id number]) [facility] ([facility]) [address] [place] [address]1290 CO2 [Moles/Vol] 32 mmol/L Normal 21-32 [facility] Comment on above: Performed By: #### 5 0957-0 #### SHAHID NEVAREZ ([id number]) [facility] ([facility]) [address] [place] [address] Creatinine [Mass/Vol] 0.89 mg/dL Normal 0.50-1.05 [facility] Comment on above: Performed By: #### 5 0957-0 #### SHAHID NEVAREZ ([id number]) [facility] ([facility]) [address] [place] [address]79 Glomerular filtration rate/1.73 sq M.predicted 66 mL/min/1.73m*2 Normal >60 [facility] Comment on above: Result Comment: Calc ulations of estimated GFR are performed using the 2020 CKD-EPI Study Refit equation without the race variable for the IDMS-Traceable creatinine methods. https://jasn.asnjournals.org/content/early/ASN.97768 58410 Performed By: #### 5 0957-0 #### SHAHID NEVAREZ ([id number]) [facility] ([facility]) [address] [place] [address]37 Glucose [Mass/Vol] 87 mg/dL Normal 74-99 [facility] Comment on above: Performed By: #### 5 0957-0 #### SHAHID NEVAREZ ([id number]) [facility] ([facility]) [address] [place] [address]16 Potassium [Moles/Vol] 4.3 mmol/L Normal 3.5-5.3 [facility] Comment on above: Performed By: #### 5 0957-0 #### SHAHID NEVAREZ ([id number]) [facility] ([facility]) [address] [place] [address] 04449 Protein [Mass/Vol] 6.7 g/dL Normal 6.4-8.2 [facility] Comment on above: Performed By: #### 5 0957-0 #### SHAHID NEVAREZ ([id number]) [facility] ([facility]) [address] [place] [address] Sodium [Moles/Vol] 138 mmol/L Normal 136-145 [facility] Comment on above: Performed By: #### 5 0957-0 #### SHAHID NEVAREZ ([id number]) [facility] ([facility]) [facility] [place] [address] Urea nitrogen [Mass/Vol] 28 mg/dL High 6-23 [facility] Comment on above: Performed By: #### 5 0957-0 #### SHAHID NEVAREZ ([id number]) [facility] ([facility]) [address] [place] [address]80 APTTon 03-28-2024 aPTT Coag (PPP) [Time] 29 s Un [facility] Basic metabolic 2000 panelon 03-28-2024 Anion gap [Moles/Vol] 9 mmol/L Low 10 - 2 0 mmol/L [facility] Calcium [Mass/Vol] 8.9 mg/dL 8.6 - 10. 3 mg/dL [facility] Chloride [Moles/Vol] 98 mmol/L 98 - 10 7 mmol/L [facility] CO2 [Moles/Vol] 28 mmol/L 21 - 32 mmol/L [facility] Creatinine [Mass/Vol] 0.79 mg/dL 0.50 - 1.05 mg/dL [facility] GFR/1.73 sq M.predicted among non-blacks MDRD (S/P/Bld) [Vol rate/Area] 77 mL/min/{1.73_m2} - PINF [facility] Comment on above: Calculations of sean mated GFR are performed using the 2020 CKD-EPI Study Refit equation without the race variable for the IDMS-Traceable creatinine methods. https://jasn.asnjournals.org/content/early//ASN.75193 55054 Glucose [Mass/Vol] 95 mg/dL 74 - 99 mg/dL [facility] Interpretation and review of laboratory results Abnormal [facility] Potassium [Moles/Vol] 4.3 mmol/L 3.5 - 5.3 mmol/L [facility] Sodium [Moles/Vol] 131 mmol/L Low 136 - 145 mmol/L [facility] Urea nitrogen [Mass/Vol] 15 mg/dL 6 - 23 mg/dL [facility] Anion gap [Moles/Vol] 9 mmol/L Low 10-20 [facility] Comment on above: Performed By: #### 2 4321-2 #### SHAHID NEVAREZ ([id number]) [facility] ([facility]) [facility] [place] [address] Calcium [Mass/Vol] 8.9 mg/dL Normal 8.6-10.3 [facility] Comment on above: Performed By: #### 2 4321-2 #### SHAHID NEVAREZ ([id number]) [facility] ([facility]) [address] [place] [address]37 Chloride [Moles/Vol] 98 mmol/L Normal 98-[address] [facility] Comment on above: Performed By: #### 2 4321-2 #### SHAHID NEVAREZ ([id number]) [facility] ([facility]) [address] [place] [address] 20597 CO2 [Moles/Vol] 28 mmol/L Normal 21-32 [facility] Comment on above: Performed By: #### 2 4321-2 #### SHAHID NEVAREZ ([id number]) [facility] ([facility]) [address] [place] [address] 91748 Creatinine [Mass/Vol] 0.79 mg/dL Normal 0.50-1.05 [facility] Comment on above: Performed By: #### 2 4321-2 #### SHAHID NEVAREZ ([id number]) [facility] ([facility]) [address] [place] [address]07 Glomerular filtration rate/1.73 sq M.predicted 77 mL/min/1.73m*2 Normal >60 [facility] Comment on above: Result Comment: Calc ulations of estimated GFR are performed using the 2020 CKD-EPI Study Refit equation without the race variable for the IDMS-Traceable creatinine methods. https://jasn.asnjournals.org/content//ASN.82056 16672 Performed By: #### 2 4321-2 #### SHAHID NEVAREZ ([id number]) [facility] ([facility]) [address] [place] [address] 46754 Glucose [Mass/Vol] 95 mg/dL Normal 74-99 [facility] Comment on above: Performed By: #### 2 4321-2 #### SHAHID NEVAREZ ([id number]) [facility] ([facility]) [address] [place] [address] 11293 Potassium [Moles/Vol] 4.3 mmol/L Normal 3.5-5.3 [facility] Comment on above: Performed By: #### 2 4321-2 #### SHAHID NEVAREZ ([id number]) [facility] ([facility]) [address] [place] [address] 87220 Sodium [Moles/Vol] 131 mmol/L Low 136-145 [facility] Comment on above: Performed By: #### 2 4321-2 #### SHAHID NEVAREZ ([id number]) [facility] ([facility]) [address] [place] [address] 17710 Urea nitrogen [Mass/Vol] 15 mg/dL Normal 6-23 [facility] Comment on above: Performed By: #### 2 4321-2 #### SHAHID NEVAREZ ([id number]) [facility] ([facility]) [address] [place] [address] 54623 CBC W Auto Differential pane l (Bld)on 03-28-2024 Basophils (Bld) [#/Vol] 0.02 10*3/uL [facility] Basophils/100 WBC (Bld) 0.4 % 0.0 - 2.0 % [facility] Eosinophils (Bld) [#/Vol] 0.09 10*3/uL [facility] Eosinophils/100 WBC (Bld) 1.7 % 0.0 - 6.0 % [facility] Erythrocyte distribution width (RBC) [Ratio] 14.5 % 11.5 - 14.5 % [facility] Hematocrit (Bld) [Volume fraction] 34.8 % Low 36.0 - 46.0 % [facility] Hemoglobin (Bld) [Mass/Vol] 11.5 g/dL Low 12.0 - 16.0 g/dL [facility] Immature granulocytes (Bld) [#/Vol] 0.01 10*3/uL [facility] Immature granulocytes/100 WBC (Bld) 0.2 % 0.0 - 0.9 % [facility] Comment on above: Immature Granulocyte Count (IG) includes promyelocytes, myelocytes and metamyelocytes but does not include bands. Percent differential counts (%) should be interpreted in the context of the absolute cell counts (cells/UL). Interpretation and review of laboratory results Abnormal [facility] Lymphocytes (Bld) [#/Vol] 0.48 10*3/uL Low [facility] Lymphocytes/100 WBC (Bld) 9.2 % 13.0 - 44.0 % [facility] MCH (RBC) [Entitic mass] 30.7 pg 26.0 - 34.0 pg [facility] MCHC (RBC) [Mass/Vol] 33.0 g/dL 32.0 - 36.0 g/dL [facility] MCV (RBC) [Entitic vol] 93 fL 80 - 100 fL [facility] Monocytes (Bld) [#/Vol] 0.23 10*3/uL [facility] Monocytes/100 WBC (Bld) 4.4 % 2.0 - 10.0 % [facility] Neutrophils (Bld) [#/Vol] 4.39 10*3/uL [facility] Comment on above: Percent differential counts (%) should be interpreted in the context of the absolute cell counts (cells/uL). Neutrophils/100 WBC (Bld) 84.1 % 40.0 - 80.0 % [facility] Nucleated RBC/100 WBC (Bld) [Ratio] 0.0 % [facility] Platelets (Bld) [#/Vol] 226 10*3/uL [facility] Comment on above: platelet count from blue top citrate tube RBC (Bld) [#/Vol] 3.74 10*6/uL [facility] WBC (Bld) [#/Vol] 5.2 10*3/uL [facility] Basophils (Bld) [#/Vol] 0.02 x10*3/uL Normal 0.00-0.10 [facility] Comment on above: Performed By: #### 5 7021-8 #### SHAHID NEVAREZ ([id number]) [facility] ([facility]) [address] [place] [address] 01098 Basophils/100 WBC (Bld) 0.4 % Normal 0.0-2.0 [facility] Comment on above: Performed By: #### 5 7021-8 #### SHAHID NEVAREZ ([id number]) [facility] ([facility]) [address] [place] [address] 76004 Eosinophils (Bld) [#/Vol] 0.09 x10*3/uL Normal 0.00-0.40 [facility] Comment on above: Performed By: #### 5 7021-8 #### SHAHID NEVAREZ ([id number]) [facility] ([facility]) [address] [place] [address] 62441 Eosinophils/100 WBC (Bld) 1.7 % Normal 0.0-6.0 [facility] Comment on above: Performed By: #### 5 7021-8 #### SHAHID NEVAREZ ([id number]) [facility] ([facility]) [address] [place] [address] 29905 Erythrocyte distribution width (RBC) [Ratio] 14.5 % Normal 11.5-14.5 [facility] Comment on above: Performed By: #### 5 7021-8 #### SHAHID NEVAREZ ([id number]) [facility] ([facility]) [address] [place] [address] 89617 Hematocrit (Bld) [Volume fraction] 34.8 % Low 36.0-46.0 [facility] Comment on above: Performed By: #### 5 7021-8 #### SHAHID NEVAREZ ([id number]) [facility] ([facility]) [address] [place] [address] 60500 Hemoglobin (Bld) [Mass/Vol] 11.5 g/dL Low 12.0-16.0 [facility] Comment on above: Performed By: #### 5 7021-8 #### SHAHID NEVAREZ ([id number]) [facility] ([facility]) [address] [place] [address] 09011 Immature granulocytes (Bld) [#/Vol] 0.01 x10*3/uL Normal 0.00-0.50 [facility] Comment on above: Performed By: #### 5 7021-8 #### SHAHID NEVAREZ ([id number]) [facility] ([facility]) [address] [place] [address] 49175 Immature granulocytes/100 WBC (Bld) 0.2 % Normal 0.0-0.9 [facility] Comment on above: Result Comment: Leesa ture Granulocyte Count (IG) includes promyelocytes, myelocytes and metamyelocytes but does not include bands. Percent differential counts (%) should be interpreted in the context of the absolute cell counts (cells/UL). Performed By: #### 5 7021-8 #### SHAHID NEVAREZ ([id number]) [facility] ([facility]) [address] [place] [address] 00083 Lymphocytes (Bld) [#/Vol] 0.48 x10*3/uL Low 0.80-3.00 [facility] Comment on above: Performed By: #### 5 7021-8 #### SHAHID NEVAREZ ([id number]) [facility] ([facility]) [address] [place] [address] [id number] Lymphocytes/100 WBC (Bld) 9.2 % Normal 13.0-44.0 [facility] Comment on above: Performed By: #### 5 7021-8 #### SHAHID NEVAREZ ([id number]) [facility] ([facility]) [address] [place] [address] 80103 MCH (RBC) [Entitic mass] 30.7 pg Normal 26.0-34.0 [facility] Comment on above: Performed By: #### 5 7021-8 #### SHAHID NEVAREZ ([id number]) [facility] ([facility]) [address] [place] [address] 13510 MCHC (RBC) [Mass/Vol] 33.0 g/dL Normal 32.0-36.0 [facility] Comment on above: Performed By: #### 5 7021-8 #### SHAHID NEVAREZ ([id number]) [facility] ([facility]) [address] [place] [address] [id number] MCV (RBC) [Entitic vol] 93 fL Normal 80-100 [facility] Comment on above: Performed By: #### 5 7021-8 #### SHAHID NEVAREZ ([id number]) [facility] ([facility]) [address] [place] [address] [id number] Monocytes (Bld) [#/Vol] 0.23 x10*3/uL Normal 0.05-0.80 [facility] Comment on above: Performed By: #### 5 7021-8 #### SHAHID NEVAREZ ([id number]) [facility] ([facility]) [address] [place] [address] 57572 Monocytes/100 WBC (Bld) 4.4 % Normal 2.0-10.0 [facility] Comment on above: Performed By: #### 5 7021-8 #### SHAHID NEVAREZ ([id number]) [facility] ([facility]) [address] [place] [address] 92154 Neutrophils (Bld) [#/Vol] 4.39 x10*3/uL Normal 1.60-5.50 [facility] Comment on above: Result Comment: Perc ent differential counts (%) should be interpreted in the context of the absolute cell counts (cells/uL). Performed By: #### 5 7021-8 #### SHAHID NEVAREZ ([id number]) [facility] ([facility]) [address] [place] [address] 62115 Neutrophils/100 WBC (Bld) 84.1 % Normal 40.0-80.0 [facility] Comment on above: Performed By: #### 5 7021-8 #### SHAHID NEVAREZ ([id number]) [facility] ([facility]) [facility] [place] [address] Nucleated RBC/100 WBC (Bld) [Ratio] 0.0 /100 WBCs Normal 0.0-0.0 [facility] Comment on above: Performed By: #### 5 7021-8 #### SHAHID NEVAREZ ([id number]) [facility] ([facility]) [address] [place] [address] 50494 Platelets (Bld) [#/Vol] 226 x10*3/uL Normal 150-450 [facility] Comment on above: Result Comment: plat elet count from blue top citrate tube Performed By: #### 5 7021-8 #### SHAHID NEVAREZ ([id number]) [facility] ([facility]) [address] [place] [address] 34872 RBC (Bld) [#/Vol] 3.74 x10*6/uL Low 4.00-5.[address] [facility] Comment on above: Performed By: #### 5 7021-8 #### SHAHID NEVAREZ ([id number]) [facility] ([facility]) [address] [place] [address] 13407 WBC (Bld) [#/Vol] 5.2 x10*3/uL Normal 4.4-11.3 [facility] Comment on above: Performed By: #### 5 7021-8 #### SHAHID NEVAREZ ([id number]) [facility] ([facility]) [address] [place] [address] 17746 Coagulation surface inducedo n 03-28-2024 aPTT Coag (PPP) [Time] 29 s Normal 27-38 [facility] Comment on above: Order Comment: The A PTT is no longer used for monitoring Unfractionated Heparin Therapy. For monitoring Heparin Therapy, use the Heparin Assay. Performed By: #### 1 4979-9 #### SHAHID NEVAREZ ([id number]) [facility] ([facility]) [address] [place] [address] 81199 Coagulation tissue factor in ducedon 07-03-2024 PT Coag (PPP) [Time] 11.6 s Normal 9.8-12.[address] [facility] Comment on above: Performed By: #### 5 902-2 #### KEY ROQUE ([id number]) [facility] ([facility]) [address] [place] [id number] ECG 12-LEADon 03-28-2024 ECG 12-LEAD Ventricular Rate 78 Atrial Rate 78 P-R Interval 154 QRS Duration 126 Q-T Interval 412 QTC Calculation(Bazett) 469 P Rociada 64 R Rociada 73 T Rociada 11 QRS Count 13 Q Onset 225 [...] full interpretation and clinical correlation Confirmed by Dawson Castorena ([id number]) on 04/05/2024 8:44:[address] [facility] Hepatic function 2000 panelo n 03-28-2024 Albumin BCP dye [Mass/Vol] 4.0 g/dL 3.4 - 5.0 g/dL [facility] ALP [Catalytic activity/Vol] 77 U/L 33 - 136 U/L [facility] ALT With P-5'-P [Catalytic activity/Vol] 31 U/L 7 - 45 U/L [facility] Comment on above: Patients treated wit h Sulfasalazine may generate falsely decreased results for ALT. AST With P-5'-P [Catalytic activity/Vol] 33 U/L 9 - 39 U/L [facility] Bilirubin [Mass/Vol] 0.6 mg/dL 0.0 - 1 .2 mg/dL [facility] Bilirubin.direct [Mass/Vol] 0.1 mg/dL 0.0 - 0.3 mg/dL [facility] Protein [Mass/Vol] 7.0 g/dL 6.4 - 8.2 g/dL [facility] Albumin BCP dye [Mass/Vol] 4.0 g/dL Normal 3.4-5.0 [facility] Comment on above: Performed By: #### 5 7021-8 #### SHAHID NEVAREZ ([id number]) [facility] ([facility]) [address] [place] [address] 64343 ALP [Catalytic activity/Vol] 77 U/L Normal 33-136 [facility] Comment on above: Performed By: #### 5 7021-8 #### SHAHID NEVAREZ ([id number]) [facility] ([facility]) [address] [place] [address] 41770 ALT With P-5'-P [Catalytic activity/Vol] 31 U/L Normal 7-45 [facility] Comment on above: Result Comment: Mimi ents treated with Sulfasalazine may generate falsely decreased results for ALT. Performed By: #### 5 7021-8 #### SHAHID NEVAREZ ([id number]) [facility] ([facility]) [address] [place] [address] 08996 AST With P-5'-P [Catalytic activity/Vol] 33 U/L Normal 9-39 [facility] Comment on above: Performed By: #### 5 7021-8 #### SHAHID NEVAREZ ([id number]) [facility] ([facility]) [address] [place] [address] 76929 Bilirubin [Mass/Vol] 0.6 mg/dL Normal 0.0-1.[address] [facility] Comment on above: Performed By: #### 7021-8 #### SHAHID NEVAREZ ([id number]) [facility] ([facility]) [address] [place] [address] 24505 Bilirubin.direct [Mass/Vol] 0.1 mg/dL Normal 0.0-0.3 [facility] Comment on above: Performed By: #### 5 7021-8 #### SHAHID NEVAREZ ([id number]) [facility] ([facility]) [address] [place] [address] 52163 Protein [Mass/Vol] 7.0 g/dL Normal 6.4-8.2 [facility] Comment on above: Performed By: #### 7021-8 #### SHAHID NEVAREZ ([id number]) [facility] ([facility]) [facility] [place] [address] Lipaseon 03-28-2024 Lipase [Catalytic activity/Vol] 48 U/L 9 - 82 U/L [facility] Lipase [Catalytic activity/V ol]on 03-28-2024 Venipuncture immediately after or during the administration of Metamizole may lead to falsely low results. Testing should be performed immediately prior to Metamizole dosing. [facility] Magnesiumon 03-28-2024 Magnesium [Mass/Vol] 2.02 mg/dL 1.60 - 2.40 mg/dL [facility] Magnesium [Mass/Vol] 2.02 mg/dL Normal 1.60-2.[address] [facility] Comment on above: Performed By: #### 1 9123-9 #### SHAHID NVEAREZ ([id number]) [facility] ([facility]) [address] [place] [address] No Panel Informationon 03-28 Interpretation and review of laboratory results Normal [facility] Interpretation and review of laboratory results Normal [facility] PT Coag (PPP) [Time]on 03-28 INR Coag (PPP) [Relative time] 1.0 {INR} 0.9 - 1.1 [facility] INR Coag (PPP) [Relative time] 1.0 Normal 0.9-1.1 [facility] Comment on above: Performed By: #### 5 902-2 #### SHAHID NEVAREZ ([id number]) [facility] ([facility]) [address] [place] [address] 85562 Phosphateon 03-28-2024 Phosphate [Mass/Vol] 3.4 mg/dL Normal 2.5-4.[address] [facility] Comment on above: Result Comment: The performance characteristics of phosphorus testing in heparinized plasma have been validated by the individual laboratory site where testing is performed. Testing on heparinized plasma is not approved by the FDA; however, such approval is not necessary. Performed By: #### 2 777-1 #### SHAHID NEVAREZ ([id number]) [facility] ([facility]) [facility] [place] [phone] Phosphoruson 03-28-2024 Phosphate [Mass/Vol] 3.4 mg/dL 2.5 - 4 .9 mg/dL [facility] Comment on above: The performance milton acteristics of phosphorus testing in heparinized plasma have been validated by the individual laboratory site where testing is performed. Testing on heparinized plasma is not approved by the FDA; however, such approval is not necessary. Protime-INRon 03-28-2024 PT Coag (PPP) [Time] 11.[address] [facility] Triacylglycerol lipaseon Lipase [Catalytic activity/Vol] 48 U/L Normal 9-82 [facility] Comment on above: Order Comment: Venip uncture immediately after or during the administration of Metamizole may lead to falsely low results. Testing should be performed immediately prior to Metamizole dosing. Performed By: #### 5 7021-8 #### KEY ROQUE ([id number]) [facility] ([facility]) [facility] [place] [phone] Urinalysis complete W Reflex Culture panel (U)on 03-28-2024 Appearance (U) Clear Clear [facility] Bilirubin (U) [Mass/Vol] Negative NEGATIVE [facility] Color (U) Colorless Abnormal Light-Yellow, Yellow, Dark-Yellow [facility] Glucose Auto test strip (U) [Mass/Vol] Normal Normal mg/dL [facility] Interpretation and review of laboratory results Abnormal [facility] Ketones (U) [Mass/Vol] Negative NEGAT NEVIN mg/dL [facility] Leukocyte esterase Auto test strip Ql (U) Negative NEGATIVE [facility] Nitrite Auto test strip Ql (U) Negative NEGATIVE [facility] pH (U) 7.0 [pH] 5.0, 5.5, 6.0, 6.5, 7.0, 7.5, 8.0 [facility] Protein (U) [Mass/Vol] Negative NEGAT NEVIN, 10 (TRACE), 20 (TRACE) mg/dL [facility] RBC (U) [#/Vol] Negative NEGATIVE [facility] Specific gravity (U) [Rel density] 1.008 1.005 - 1.035 [facility] Urobilinogen (U) [Mass/Vol] Normal Normal mg/dL [facility] Appearance (U) Clear Normal Clear [facility] Comment on above: Performed By: #### 5 8077-9 #### SHAHID NEVAREZ ([id number]) [facility] ([facility]) [address] [place], [place] [phone] Bilirubin (U) [Mass/Vol] Negative Normal NEGATIVE [facility] Comment on above: Performed By: #### 5 8077-9 #### SHAHID NEVAREZ ([id number]) [facility] ([facility]) [address] [place] [address] Color (U) Colorless Normal Light-Yellow, Yellow, Dark-Yellow [facility] Comment on above: Performed By: #### 5 8077-9 #### SHAHID NEVAREZ ([id number]) [facility] ([facility]) [address] [place], [place] [phone] Glucose Auto test strip (U) [Mass/Vol] Normal Normal Normal [facility] Comment on above: Performed By: #### 5 8077-9 #### SHAHID NEVAREZ ([id number]) [facility] ([facility]) [address] [place] [address] 82250 Ketones (U) [Mass/Vol] Negative Normal NEGATIVE [facility] Comment on above: Performed By: #### 5 8077-9 #### SHAHID NEVAREZ ([id number]) [facility] ([facility]) [address] [place] [address] 62789 Leukocyte esterase Auto test strip Ql (U) Negative Normal NEGATIVE [facility] Comment on above: Performed By: #### 5 8077-9 #### SHAHID NEVAREZ ([id number]) [facility] ([facility]) [address] [place] [address] 14010 Nitrite Auto test strip Ql (U) Negative Normal NEGATIVE [facility] Comment on above: Performed By: #### 5 8077-9 #### SHAHID NEVAREZ ([id number]) [facility] ([facility]) [address] [place] [address] 03231 pH (U) 7.0 [pH] Normal 5.0, 5.5, 6.0, 6.5, 7.0, 7.5, 8.0 [facility] Comment on above: Performed By: #### 5 8077-9 #### SHAHID NEVAREZ ([id number]) [facility] ([facility]) [address] [place] [address] Protein (U) [Mass/Vol] Negative Normal NEGAT NEVIN, 10 (TRACE), 20 (TRACE) [facility] Comment on above: Performed By: #### 5 8077-9 #### SHAHID NEVAREZ ([id number]) [facility] ([facility]) [address] [place] [address] RBC (U) [#/Vol] Negative Normal NEGATIVE [facility] Comment on above: Performed By: #### 5 8077-9 #### SHAHID NEVAREZ ([id number]) [facility] ([facility]) [address] [place] [address] Specific gravity (U) [Rel density] 1.008 Normal 1.005-1.035 [facility] Comment on above: Performed By: #### 5 8077-9 #### SHAHID NEVAREZ ([id number]) [facility] ([facility]) [address] [place] [address] Urobilinogen (U) [Mass/Vol] Normal Normal Normal [facility] Comment on above: Performed By: #### 5 8077-9 #### SHAHID NEVAREZ ([id number]) [facility] ([facility]) [address] [place] [address] XR CERVICAL SPINE 2-3 VIEWSo n 03-28-2024 XR CERVICAL SPINE 2-3 VIEWS Interpreted By: Susy Nance, STUDY: XR CERVICAL SPINE 2-3 VIEWS; 03/28/2024 11:27 am 3 views. INDICATION: Signs/Symptoms:NECK PAIN/?DJD. COMPARISON: None. ACCESSION NUMBER(S): [id number] ORDERING CLINICIAN: LORENZA CARVER FINDINGS: There is [...] Susy Nance 03/28/2024 11:48 AM Dictation workstation: [id number] [facility] XR Cervical spine 2 or 3 Vie wson 03-28-2024 1. Degenerative change with no acute bony abnormality. 2. 2 mm retrolisthesis of C5 with respect to C4 and C6. MACRO: None Signed by: Susy Nance 03/28/2024 11:48 AM Dictation workstation: [id number] MMODAL Interpreted By: Susy Nance, STUDY: XR CERVICAL SPINE 2-3 VIEWS; 03/28/2024 11:27 am 3 views. INDICATION: Signs/Symptoms:NECK PAIN/?DJD. COMPARISON: None. ACCESSION NUMBER(S): [id number] ORDERING CLINICIAN: LORENZA CARVER FINDINGS: There is no fracture or prevertebral soft tissue swelling. There is 2 mm retrolisthesis of C5 with respect to C4 and C6. There is mild anterior osteophytic spurring at C2-3 through C4-5. There is disc space narrowing with mild anterior osteophytic spurring at C5-6 and C6-7. MMODAL Susy Nance M D - 03/28/2024 Interpreted By: Susy Nance, STUDY: XR CERVICAL SPINE 2-3 VIEWS; 03/28/2024 11:27 am 3 views. INDICATION: Signs/Symptoms:NECK PAIN/?DJD. COMPARISON: None. ACCESSION NUMBER(S): [id number] ORDERING CLINICIAN: LORENZA CARVER FINDINGS: There is [...] Susy Nance 03/28/2024 11:48 AM Dictation workstation: [id number] [facility] Work Phone: Radiology Study observation (narrative) [facility] Work Phone: XR Cervical spine 2 or 3 Vie wsOrdered By: Susy Nance on 03-28-2024 [facility] Work Phone: aPTT Coag (PPP) [Time]on The APTT is no longe r used for monitoring Unfractionated Heparin Therapy. For monitoring Heparin Therapy, use the Heparin Assay. [facility] Borrelia burgdorferi.VlsE1+p epC10 Abon 03-27-2024 Borrelia burgdorferi.VlsE1+pepC 10 Ab 5.80 IV High <=0.90 [facility] Comment on above: Result Comment: REFERENCE INTERVAL: B. burgdorferi VlsE1/pepC10 Abs, ROCÍO 0.90 IV or less..........Negative: VlsE1 and pepC10 antibodies to B. burgdorferi not detected. 0.91 - 1.09 IV...........Equivocal: Repeat testing in 10-14 days may be helpful. 1.10 IV or greater.......Positive: VlsE1 and pepC10 antibodies to B. burgdorferi detected. Performed By: [employer] [address] [place] [address] [employer] Operator: Archie Bernard MD, PhD CLIA Number: [id number] Performed By: #### 5 0957-0 #### KEY ROQUE ([id number]) [facility] ([facility]) [address] [place] [address] C reactive proteinon 024 CRP [Mass/Vol] 1.71 mg/dL High <1.00 [facility] Comment on above: Performed By: #### 1 988-5 #### SHAHID NEVAREZ ([id number]) [facility] ([facility]) [address] [place] [address] 72660 CBC W Auto Differential pane l (Bld)on 03-27-2024 Basophils (Bld) [#/Vol] 0.04 x10*3/uL Normal 0.00-0.10 [facility] Comment on above: Performed By: #### 5 7021-8 #### SHAHID NEVAREZ ([id number]) [facility] ([facility]) [address] [place] [address] 54773 Basophils/100 WBC (Bld) 0.6 % Normal 0.0-2.0 [facility] Comment on above: Performed By: #### 5 7021-8 #### SHAHID NEVAREZ ([id number]) [facility] ([facility]) [address] [place] [address] 16879 Eosinophils (Bld) [#/Vol] 0.08 x10*3/uL Normal 0.00-0.40 [facility] Comment on above: Performed By: #### 5 7021-8 #### SHAHID NEVAREZ ([id number]) [facility] ([facility]) [address] [place] [address] 78015 Eosinophils/100 WBC (Bld) 1.3 % Normal 0.0-6.0 [facility] Comment on above: Performed By: #### 5 7021-8 #### SHAHID NEVAREZ ([id number]) [facility] ([facility]) [address] [place] [address] 67345 Erythrocyte distribution width (RBC) [Ratio] 14.5 % Normal 11.5-14.5 [facility] Comment on above: Performed By: #### 5 7021-8 #### SHAHID NEVAREZ ([id number]) [facility] ([facility]) [address] [place], [place] [phone] Hematocrit (Bld) [Volume fraction] 35.5 % Low 36.0-46.0 [facility] Comment on above: Performed By: #### 5 7021-8 #### SHAHID NEVAREZ ([id number]) [facility] ([facility]) [address] [place] [address] 68349 Hemoglobin (Bld) [Mass/Vol] 11.6 g/dL Low 12.0-16.0 [facility] Comment on above: Performed By: #### 5 7021-8 #### SHAHID NEVAREZ ([id number]) [facility] ([facility]) [address] [place] [address] 12802 Immature granulocytes (Bld) [#/Vol] 0.02 x10*3/uL Normal 0.00-0.50 [facility] Comment on above: Performed By: #### 5 7021-8 #### SHAHID NEVAREZ ([id number]) [facility] ([facility]) [address] [place] [address] 49814 Immature granulocytes/100 WBC (Bld) 0.3 % Normal 0.0-0.9 [facility] Comment on above: Result Comment: Leesa ture Granulocyte Count (IG) includes promyelocytes, myelocytes and metamyelocytes but does not include bands. Percent differential counts (%) should be interpreted in the context of the absolute cell counts (cells/UL). Performed By: #### 5 7021-8 #### SHAHID NEVAREZ ([id number]) [facility] ([facility]) [address] [place] [address] 15390 Lymphocytes (Bld) [#/Vol] 0.79 x10*3/uL Low 0.80-3.00 [facility] Comment on above: Performed By: #### 5 7021-8 #### SHAHID NEVAREZ ([id number]) [facility] ([facility]) [address] [place] [address] 61750 Lymphocytes/100 WBC (Bld) 12.8 % Normal 13.0-44.0 [facility] Comment on above: Performed By: #### 5 7021-8 #### SHAHID NEVAREZ ([id number]) [facility] ([facility]) [address] [place] [address] 67067 MCH (RBC) [Entitic mass] 30.9 pg Normal 26.0-34.0 [facility] Comment on above: Performed By: #### 5 7021-8 #### SHAHID NEVAREZ ([id number]) [facility] ([facility]) [address] [place] [address] 17503 MCHC (RBC) [Mass/Vol] 32.7 g/dL Normal 32.0-36.0 [facility] Comment on above: Performed By: #### 5 7021-8 #### SHAHID NEVAREZ ([id number]) [facility] ([facility]) [address] [place] [address] 28723 MCV (RBC) [Entitic vol] 94 fL Normal 80-100 [facility] Comment on above: Performed By: #### 5 7021-8 #### SHAHID NEVAREZ ([id number]) [facility] ([facility]) [address] [place] [address] 98424 Monocytes (Bld) [#/Vol] 0.41 x10*3/uL Normal 0.05-0.80 [facility] Comment on above: Performed By: #### 5 7021-8 #### SHAHID NEVAREZ ([id number]) [facility] ([facility]) [address] [place] [address] 96006 Monocytes/100 WBC (Bld) 6.7 % Normal 2.0-10.0 [facility] Comment on above: Performed By: #### 5 7021-8 #### SHAHID NEVAREZ ([id number]) [facility] ([facility]) [address] [place] [address] 54403 Neutrophils (Bld) [#/Vol] 4.82 x10*3/uL Normal 1.60-5.50 [facility] Comment on above: Result Comment: Perc ent differential counts (%) should be interpreted in the context of the absolute cell counts (cells/uL). Performed By: #### 5 7021-8 #### SHAHID NEVAREZ ([id number]) [facility] ([facility]) [address] [place] [address] 69478 Neutrophils/100 WBC (Bld) 78.3 % Normal 40.0-80.0 [facility] Comment on above: Performed By: #### 5 7021-8 #### SHAHID NEVAREZ ([id number]) [facility] ([facility]) [address] [place] [address] 30459 Nucleated RBC/100 WBC (Bld) [Ratio] 0.0 /100 WBCs Normal 0.0-0.0 [facility] Comment on above: Performed By: #### 5 7021-8 #### SHAHID NEVAREZ ([id number]) [facility] ([facility]) [address] [place] [address] 42306 Platelets (Bld) [#/Vol] 104 x10*3/uL Low 150-450 [facility] Comment on above: Result Comment: vort exed, platelets showed clumping. Recommend blue top draw also next time. Performed By: #### 5 7021-8 #### SHAHID NEVAREZ ([id number]) [facility] ([facility]) [address] [place] [address] 27522 RBC (Bld) [#/Vol] 3.76 x10*6/uL Low 4.00-5.20 [facility] Comment on above: Performed By: #### 5 7021-8 #### SHAHID NEVAREZ ([id number]) [facility] ([facility]) [address] [place] [address] 30069 WBC (Bld) [#/Vol] 6.2 x10*3/uL Normal 4.4-11.3 [facility] Comment on above: Performed By: #### 5 7021-8 #### SHAHID NEVAREZ ([id number]) [facility] ([facility]) [address] [place] [address] 01328 Comprehensive metabolic 2000 panelon 03-27-2024 Albumin BCP dye [Mass/Vol] 4.0 g/dL Normal 3.4-5.0 [facility] Comment on above: Performed By: #### 2 4323-8 #### SHAHID NEVAREZ ([id number]) [facility] ([facility]) [address] [place] [address] 33759 ALP [Catalytic activity/Vol] 78 U/L Normal 33-136 [facility] Comment on above: Performed By: #### 2 432-8 #### SHAHID NEVAREZ ([id number]) [facility] ([facility]) [address] [place] [address] ALT With P-5'-P [Catalytic activity/Vol] 33 U/L Normal 7-45 [facility] Comment on above: Result Comment: Mimi ents treated with Sulfasalazine may generate falsely decreased results for ALT. Performed By: #### 2 4323-8 #### SHAHID NEVAREZ ([id number]) [facility] ([facility]) [address] [place] [address] Anion gap [Moles/Vol] 10 mmol/L Normal [facility] Comment on above: Performed By: #### 2 432-8 #### SHAHID NEVAREZ ([id number]) [facility] ([facility]) [address] [place] [address] 22673 AST With P-5'-P [Catalytic activity/Vol] 30 U/L Normal 9-39 [facility] Comment on above: Performed By: #### 2 4322-8 #### SHAHID NEVAREZ ([id number]) [facility] ([facility]) [address] [place] [address] Bilirubin [Mass/Vol] 0.7 mg/dL Normal 0.0-1.2 [facility] Comment on above: Performed By: #### 2 432-8 #### SHAHID NEVAREZ ([id number]) [facility] ([facility]) [address] [place] [address] Calcium [Mass/Vol] 9.2 mg/dL Normal 8.6-10.3 [facility] Comment on above: Performed By: #### 2 4323-8 #### SHAHID NEVAREZ ([id number]) [facility] ([facility]) [address] [place] [address] Chloride [Moles/Vol] 92 mmol/L Low 98-107 [facility] Comment on above: Performed By: #### 2 4323-8 #### SHAHID NEVAREZ ([id number]) [facility] ([facility]) [address] [place] [address] CO2 [Moles/Vol] 29 mmol/L Normal 21-32 [facility] Comment on above: Performed By: #### 2 4323-8 #### SHAHID NEVAREZ ([id number]) [facility] ([facility]) [address] [place] [address] 81198 Creatinine [Mass/Vol] 0.88 mg/dL Normal 0.50-1.05 [facility] Comment on above: Performed By: #### 2 4323-8 #### SHAHID NEVAREZ ([id number]) [facility] ([facility]) [address] [place] [address] 28786 Glomerular filtration rate/1.73 sq M.predicted 67 mL/min/1.73m*2 Normal >60 [facility] Comment on above: Result Comment: Calc ulations of estimated GFR are performed using the 2020 CKD-EPI Study Refit equation without the race variable for the IDMS-Traceable creatinine methods. https://jasn.asnjournals.org/content/early/ASN.22694 15758 Performed By: #### 2 432-8 #### SHAHID NEVAREZ ([id number]) [facility] ([facility]) [address] [place] [address] 86256 Glucose [Mass/Vol] 75 mg/dL Normal 74-99 [facility] Comment on above: Performed By: #### 2 432-8 #### SHAHID NEVAREZ ([id number]) [facility] ([facility]) [address] [place] [address] 88944 Potassium [Moles/Vol] 4.4 mmol/L Normal 3.5-5.3 [facility] Comment on above: Performed By: #### 2 4323-8 #### SHAHID NEVAREZ ([id number]) [facility] ([facility]) [address] [place] [address] 29911 Protein [Mass/Vol] 6.8 g/dL Normal 6.4-8.2 [facility] Comment on above: Performed By: #### 2 4323-8 #### SHAHID NEVAREZ ([id number]) [facility] ([facility]) [address] [place] [address] Sodium [Moles/Vol] 127 mmol/L Low 136-145 [facility] Comment on above: Result Comment: Conf irmed by repeat analysis Performed By: #### 2 4323-8 #### SHAHID NEVAREZ ([id number]) [facility] ([facility]) [address] [place] [address] Urea nitrogen [Mass/Vol] 16 mg/dL Normal 6-23 [facility] Comment on above: Performed By: #### 2 4323-8 #### SHAHID NEVAREZ ([id number]) [facility] ([facility]) [address] [place] [address] ESR Westergren method (Bld) [Velocity]on 03-27-2024 ESR (Bld) [Velocity] 53 mm/h High 0-30 [facility] Comment on above: Performed By: #### 4 537-7 #### SHAHID NEVAREZ ([id number]) [facility] ([facility]) [address] [place] [address] Ferritinon 03-27-2024 Ferritin [Mass/Vol] 346 ng/mL High 8-150 [facility] Comment on above: Performed By: #### 5 0957-0 #### SHAHID NEVAREZ ([id number]) [facility] ([facility]) [address] [place] [address] LYME AB MODIFIED 2-TIER TEST ING, 2ND TIERon 03-27-2024 B. burgdorferi IgG and IgM IA (S) [Interp] Positive Abnormal Negative [facility] Comment on above: Result Comment: Both IgM and IgG-class antibodies to the Borrelia species causing Lyme disease were detected, suggesting recent or remote past infection. If both first tier screen test and second tier tests are equivocal, consider repeat testing in 7-14 days if clinically warranted. Performed By: [employer] [address] [place] [address] [employer] Operator: Archie Bernard MD, PhD CLIA Number: [id number] Performed By: #### 5 0957-0 #### SHAHID NEVAREZ ([id number]) [facility] ([facility]) [address] [place] [address] B. burgdorferi IgG IA Ql 1.07 IV High <=0.90 [facility] Comment on above: Result Comment: Reference Interval: Borrelia burgdorferi Ab, IgG by ROCÍO 0.90 IV or less.......... Negative: IgG antibodies to B. burgdorferi not detected. 0.91-1.09 IV............. Equivocal 1.10 IV or greater....... Positive: IgG antibodies to B. burgdorferi detected. Performed By: #### 5 0957-0 #### SHAHID NEVAREZ ([id number]) [facility] ([facility]) [address] [place] [address] B. burgdorferi IgM IA Ql 6.37 IV High <=0.90 [facility] Comment on above: Result Comment: Reference Interval: Borrelia burgdorferi Ab, IgM by ROCÍO 0.90 IV or less.......... Negative: IgM antibodies to B. burgdorferi not detected. 0.91-1.09 IV............. Equivocal 1.10 IV or greater....... Positive: IgM antibodies to B. burgdorferi detected. Performed By: #### 5 0957-0 #### SHAHID NEVAREZ ([id number]) [facility] ([facility]) [address] [place] [address] CBC W Auto Differential pane l (Bld)on 03-23-2024 Basophils (Bld) [#/Vol] 0.03 x10*3/uL Normal 0.00-0.10 [facility] Comment on above: Performed By: #### 5 7021-8 #### SHAHID NEVAREZ ([id number]) [facility] ([facility]) [address] [place] [address] Basophils/100 WBC (Bld) 0.4 % Normal 0.0-2.0 [facility] Comment on above: Performed By: #### 5 7021-8 #### SHAHID NEVAREZ ([id number]) [facility] ([facility]) [address] [place] [address] Eosinophils (Bld) [#/Vol] 0.13 x10*3/uL Normal 0.00-0.40 [facility] Comment on above: Performed By: #### 5 7021-8 #### SHAHID NEVAREZ ([id number]) [facility] ([facility]) [address] [place] [address] 87404 Eosinophils/100 WBC (Bld) 1.9 % Normal 0.0-6.0 [facility] Comment on above: Performed By: #### 5 7021-8 #### SHAHID NEVAREZ ([id number]) [facility] ([facility]) [address] [place] [address] 23271 Erythrocyte distribution width (RBC) [Ratio] 14.7 % High 11.5-14.5 [facility] Comment on above: Performed By: #### 5 7021-8 #### SHAHID NEVAREZ ([id number]) [facility] ([facility]) [address] [place] [address] Hematocrit (Bld) [Volume fraction] 34.3 % Low 36.0-46.0 [facility] Comment on above: Performed By: #### 5 7021-8 #### SHAHID NEVAREZ ([id number]) [facility] ([facility]) [address] [place] [address] 54405 Hemoglobin (Bld) [Mass/Vol] 11.1 g/dL Low 12.0-16.0 [facility] Comment on above: Performed By: #### 5 7021-8 #### SHAHID NEVAREZ ([id number]) [facility] ([facility]) [address] [place] [address] 99445 Immature granulocytes (Bld) [#/Vol] 0.03 x10*3/uL Normal 0.00-0.50 [facility] Comment on above: Performed By: #### 5 7021-8 #### SHAHID NEVAREZ ([id number]) [facility] ([facility]) [address] [place] [address] 22771 Immature granulocytes/100 WBC (Bld) 0.4 % Normal 0.0-0.9 [facility] Comment on above: Result Comment: Leesa ture Granulocyte Count (IG) includes promyelocytes, myelocytes and metamyelocytes but does not include bands. Percent differential counts (%) should be interpreted in the context of the absolute cell counts (cells/UL). Performed By: #### 5 7021-8 #### SHAHID NEVAREZ ([id number]) [facility] ([facility]) [address] [place] [address] 05531 Lymphocytes (Bld) [#/Vol] 1.23 x10*3/uL Normal 0.80-3.00 [facility] Comment on above: Performed By: #### 5 7021-8 #### SHAHID NEVAREZ ([id number]) [facility] ([facility]) [address] [place] [address] 10082 Lymphocytes/100 WBC (Bld) 18.1 % Normal 13.0-44.0 [facility] Comment on above: Performed By: #### 5 7021-8 #### SHAHID NEVAREZ ([id number]) [facility] ([facility]) [address] [place] [address] 51367 MCH (RBC) [Entitic mass] 30.4 pg Normal 26.0-34.0 [facility] Comment on above: Performed By: #### 5 7021-8 #### SHAHID NEVAREZ ([id number]) [facility] ([facility]) [address] [place] [address] 91289 MCHC (RBC) [Mass/Vol] 32.4 g/dL Normal 32.0-36.0 [facility] Comment on above: Performed By: #### 5 7021-8 #### SHAHID NEVAREZ ([id number]) [facility] ([facility]) [address] [place] [address] 09270 MCV (RBC) [Entitic vol] 94 fL Normal 80-100 [facility] Comment on above: Performed By: #### 5 7021-8 #### SHAHID NEVAREZ ([id number]) [facility] ([facility]) [address] [place] [address] 11046 Monocytes (Bld) [#/Vol] 0.64 x10*3/uL Normal 0.05-0.80 [facility] Comment on above: Performed By: #### 5 7021-8 #### SHAHID NEVAREZ ([id number]) [facility] ([facility]) [address] [place] [address] 11968 Monocytes/100 WBC (Bld) 9.4 % Normal 2.0-10.0 [facility] Comment on above: Performed By: #### 5 7021-8 #### SHAHID NEVAREZ ([id number]) [facility] ([facility]) [address] [place] [address] 99858 Neutrophils (Bld) [#/Vol] 4.75 x10*3/uL Normal 1.60-5.50 [facility] Comment on above: Result Comment: Perc ent differential counts (%) should be interpreted in the context of the absolute cell counts (cells/uL). Performed By: #### 5 7021-8 #### SHAHID NEVAREZ ([id number]) [facility] ([facility]) [address] [place] [address] 63678 Neutrophils/100 WBC (Bld) 69.8 % Normal 40.0-80.0 [facility] Comment on above: Performed By: #### 5 7021-8 #### SHAHID NEVAREZ ([id number]) [facility] ([facility]) [address] [place] [address] 96380 Nucleated RBC/100 WBC (Bld) [Ratio] 0.0 /100 WBCs Normal 0.0-0.0 [facility] Comment on above: Performed By: #### 5 7021-8 #### SHAHID NEVAREZ ([id number]) [facility] ([facility]) [address] [place] [address] 66468 Platelets (Bld) [#/Vol] 190 x10*3/uL Normal 150-450 [facility] Comment on above: Result Comment: Plea se redraw in Blue top tube. Platelet count may be higher than reported due to presence of Platelet Clumps. Performed By: #### 5 7021-8 #### SHAHID NEVAREZ ([id number]) [facility] ([facility]) [address] [place] [address] 23193 RBC (Bld) [#/Vol] 3.65 x10*6/uL Low 4.00-5.20 [facility] Comment on above: Performed By: #### 5 7021-8 #### SHAHID NEVRAEZ ([id number]) [facility] ([facility]) [address] [place] [address] 39674 WBC (Bld) [#/Vol] 6.8 x10*3/uL Normal 4.4-11.3 [facility] Comment on above: Performed By: #### 5 7021-8 #### SHAHID NEVAREZ ([id number]) [facility] ([facility]) [address] [place] [address] Comprehensive metabolic 2000 panelon 03-23-2024 Albumin BCP dye [Mass/Vol] 3.8 g/dL Normal 3.4-5.0 [facility] Comment on above: Performed By: #### 2 4323-8 #### SHAHID NEVAREZ ([id number]) [facility] ([facility]) [address] [place] [address] 23419 ALP [Catalytic activity/Vol] 83 U/L Normal 33-136 [facility] Comment on above: Performed By: #### 2 4323-8 #### SHAHID NEVAREZ ([id number]) [facility] ([facility]) [address] [place] [address] 71410 ALT With P-5'-P [Catalytic activity/Vol] 40 U/L Normal 7-45 [facility] Comment on above: Result Comment: Mimi ents treated with Sulfasalazine may generate falsely decreased results for ALT. Performed By: #### 2 4323-8 #### SHAHID NEVAREZ ([id number]) [facility] ([facility]) [address] [place] [address] 81126 Anion gap [Moles/Vol] 10 mmol/L Normal 10-20 [facility] Comment on above: Performed By: #### 2 4323-8 #### SHAHID NEVAREZ ([id number]) [facility] ([facility]) [address] [place] [address] 66254 AST With P-5'-P [Catalytic activity/Vol] 28 U/L Normal 9-39 [facility] Comment on above: Performed By: #### 2 4323-8 #### SHAHID NEVAREZ ([id number]) [facility] ([facility]) [address] [place] [address] Bilirubin [Mass/Vol] 0.5 mg/dL Normal 0.0-1.2 [facility] Comment on above: Performed By: #### 2 4323-8 #### SHAHID NEVAREZ ([id number]) [facility] ([facility]) [address] [place] [address] 90723 Calcium [Mass/Vol] 8.9 mg/dL Normal 8.6-10.3 [facility] Comment on above: Performed By: #### 2 4323-8 #### SHAHID NEVAREZ ([id number]) [facility] ([facility]) [address] [place] [address] 49931 Chloride [Moles/Vol] 97 mmol/L Low 98-107 [facility] Comment on above: Performed By: #### 2 4323-8 #### SHAHID NEVAREZ ([id number]) [facility] ([facility]) [address] [place] [address] 83953 CO2 [Moles/Vol] 29 mmol/L Normal 21-32 [facility] Comment on above: Performed By: #### 2 4323-8 #### SHAHID NEVAREZ ([id number]) [facility] ([facility]) [address] [place] [address] 66869 Creatinine [Mass/Vol] 0.87 mg/dL Normal 0.50-1.05 [facility] Comment on above: Performed By: #### 2 4323-8 #### SHAHID NEVAREZ ([id number]) [facility] ([facility]) [address] [place] [address] 25521 Glomerular filtration rate/1.73 sq M.predicted 68 mL/min/1.73m*2 Normal >60 [facility] Comment on above: Result Comment: Calc ulations of estimated GFR are performed using the 2020 CKD-EPI Study Refit equation without the race variable for the IDMS-Traceable creatinine methods. https://jasn.asnjournals.org/content//ASN.28305 69092 Performed By: #### 2 4323-8 #### SHAHID NEVAREZ ([id number]) [facility] ([facility]) [address] [place] [address] 75568 Glucose [Mass/Vol] 92 mg/dL Normal 74-99 [facility] Comment on above: Performed By: #### 2 4323-8 #### SHAHID NEVAREZ ([id number]) [facility] ([facility]) [address] [place] [address] 22617 Potassium [Moles/Vol] 4.5 mmol/L Normal 3.5-5.3 [facility] Comment on above: Performed By: #### 2 4323-8 #### SHAHID NEVAREZ ([id number]) [facility] ([facility]) [address] [place] [address] 55745 Protein [Mass/Vol] 6.5 g/dL Normal 6.4-8.2 [facility] Comment on above: Performed By: #### 2 4323-8 #### SHAHID NEVAREZ ([id number]) [facility] ([facility]) [address] [place] [address] 37069 Sodium [Moles/Vol] 131 mmol/L Low 136-145 [facility] Comment on above: Performed By: #### 2 4323-8 #### SHAHID NEVAREZ ([id number]) [facility] ([facility]) [address] [place] [address] 03265 Urea nitrogen [Mass/Vol] 15 mg/dL Normal 6-23 [facility] Comment on above: Performed By: #### 2 4323-8 #### SHAHID NEVAREZ ([id number]) [facility] ([facility]) [address] [place] [address] 81093 CBC W Auto Differential pane l (Bld)on 03-16-2024 Basophils (Bld) [#/Vol] 0.03 10*3/uL [facility] Basophils/100 WBC (Bld) 0.4 % 0.0 - 2.0 % [facility] Eosinophils (Bld) [#/Vol] 0.19 10*3/uL [facility] Eosinophils/100 WBC (Bld) 2.6 % 0.0 - 6.0 % [facility] Erythrocyte distribution width (RBC) [Ratio] 14.6 % High 11.5 - 14.5 % [facility] Hematocrit (Bld) [Volume fraction] 32.3 % Low 36.0 - 46.0 % [facility] Hemoglobin (Bld) [Mass/Vol] 10.6 g/dL Low 12.0 - 16.0 g/dL [facility] Immature granulocytes (Bld) [#/Vol] 0.02 10*3/uL [facility] Immature granulocytes/100 WBC (Bld) 0.3 % 0.0 - 0.9 % [facility] Comment on above: Immature Granulocyte Count (IG) includes promyelocytes, myelocytes and metamyelocytes but does not include bands. Percent differential counts (%) should be interpreted in the context of the absolute cell counts (cells/UL). Interpretation and review of laboratory results Abnormal [facility] Lymphocytes (Bld) [#/Vol] 1.34 10*3/uL [facility] Lymphocytes/100 WBC (Bld) 18.7 % 13.0 - 44.0 % [facility] MCH (RBC) [Entitic mass] 30.5 pg 26.0 - 34.0 pg [facility] MCHC (RBC) [Mass/Vol] 32.8 g/dL 32.0 - 36.0 g/dL [facility] MCV (RBC) [Entitic vol] 93 fL 80 - 100 fL [facility] Monocytes (Bld) [#/Vol] 0.45 10*3/uL [facility] Monocytes/100 WBC (Bld) 6.3 % 2.0 - 10.0 % [facility] Neutrophils (Bld) [#/Vol] 5.14 10*3/uL [facility] Comment on above: Percent differential counts (%) should be interpreted in the context of the absolute cell counts (cells/uL). Neutrophils/100 WBC (Bld) 71.7 % 40.0 - 80.0 % [facility] Nucleated RBC/100 WBC (Bld) [Ratio] 0.0 % [facility] Platelets (Bld) [#/Vol] 174 10*3/uL [facility] Comment on above: Platelet count verif ied by smear review. RBC (Bld) [#/Vol] 3.48 10*6/uL [facility] WBC (Bld) [#/Vol] 7.2 10*3/uL [facility] Basophils (Bld) [#/Vol] 0.03 x10*3/uL Normal 0.00-0.10 [facility] Comment on above: Performed By: #### 5 7021-8 #### SHAHID NEVAREZ ([id number]) [facility] ([facility]) [address] [place] [address] 88724 Basophils/100 WBC (Bld) 0.4 % Normal 0.0-2.0 [facility] Comment on above: Performed By: #### 5 7021-8 #### SHAHID NEVAREZ ([id number]) [facility] ([facility]) [address] [place] [address] 53256 Eosinophils (Bld) [#/Vol] 0.19 x10*3/uL Normal 0.00-0.40 [facility] Comment on above: Performed By: #### 5 7021-8 #### SHAHID NEVAREZ ([id number]) [facility] ([facility]) [address] [place] [address] 72303 Eosinophils/100 WBC (Bld) 2.6 % Normal 0.0-6.0 [facility] Comment on above: Performed By: #### 5 7021-8 #### SHAHID NEVAREZ ([id number]) [facility] ([facility]) [address] [place] [address] 48213 Erythrocyte distribution width (RBC) [Ratio] 14.6 % High 11.5-14.5 [facility] Comment on above: Performed By: #### 5 7021-8 #### SHAHID NEVAREZ ([id number]) [facility] ([facility]) [address] [place] [address] 43167 Hematocrit (Bld) [Volume fraction] 32.3 % Low 36.0-46.0 [facility] Comment on above: Performed By: #### 5 7021-8 #### SHAHID NEVAREZ ([id number]) [facility] ([facility]) [address] [place] [address] 52890 Hemoglobin (Bld) [Mass/Vol] 10.6 g/dL Low 12.0-16.0 [facility] Comment on above: Performed By: #### 5 7021-8 #### SHAHID NEVAREZ ([id number]) [facility] ([facility]) [address] [place] [address] 88307 Immature granulocytes (Bld) [#/Vol] 0.02 x10*3/uL Normal 0.00-0.50 [facility] Comment on above: Performed By: #### 5 7021-8 #### SHAHID NEVAREZ ([id number]) [facility] ([facility]) [address] [place] [address] 95556 Immature granulocytes/100 WBC (Bld) 0.3 % Normal 0.0-0.9 [facility] Comment on above: Result Comment: Leesa ture Granulocyte Count (IG) includes promyelocytes, myelocytes and metamyelocytes but does not include bands. Percent differential counts (%) should be interpreted in the context of the absolute cell counts (cells/UL). Performed By: #### 5 7021-8 #### SHAHID NEVAREZ ([id number]) [facility] ([facility]) [address] [place] [address] 50650 Lymphocytes (Bld) [#/Vol] 1.34 x10*3/uL Normal 0.80-3.00 [facility] Comment on above: Performed By: #### 5 7021-8 #### SHAHID NVEAREZ ([id number]) [facility] ([facility]) [address] [place] [address] 37816 Lymphocytes/100 WBC (Bld) 18.7 % Normal 13.0-44.0 [facility] Comment on above: Performed By: #### 5 7021-8 #### SHAHID NEVAREZ ([id number]) [facility] ([facility]) [facility] [place] [address] MCH (RBC) [Entitic mass] 30.5 pg Normal 26.0-34.0 [facility] Comment on above: Performed By: #### 5 7021-8 #### SHAHID NEVAREZ ([id number]) [facility] ([facility]) [address] [place] [address] 43436 MCHC (RBC) [Mass/Vol] 32.8 g/dL Normal 32.0-36.0 [facility] Comment on above: Performed By: #### 5 7021-8 #### SHAHID NEVAREZ ([id number]) [facility] ([facility]) [address] [place] [address] 55757 MCV (RBC) [Entitic vol] 93 fL Normal 80-100 [facility] Comment on above: Performed By: #### 5 7021-8 #### SHAHID NEVAREZ ([id number]) [facility] ([facility]) [address] [place] [address] 30819 Monocytes (Bld) [#/Vol] 0.45 x10*3/uL Normal 0.05-0.80 [facility] Comment on above: Performed By: #### 5 7021-8 #### SHAHID NEVAREZ ([id number]) [facility] ([facility]) [address] [place] [address] 12958 Monocytes/100 WBC (Bld) 6.3 % Normal 2.0-10.0 [facility] Comment on above: Performed By: #### 5 7021-8 #### SHAHID NEVAREZ ([id number]) [facility] ([facility]) [address] [place] [address] 21749 Neutrophils (Bld) [#/Vol] 5.14 x10*3/uL Normal 1.60-5.50 [facility] Comment on above: Result Comment: Perc ent differential counts (%) should be interpreted in the context of the absolute cell counts (cells/uL). Performed By: #### 5 7021-8 #### SHAHID NEVAREZ ([id number]) [facility] ([facility]) [address] [place] [address] Neutrophils/100 WBC (Bld) 71.7 % Normal 40.0-80.0 [facility] Comment on above: Performed By: #### 5 7021-8 #### SHAHID NEVAREZ ([id number]) [facility] ([facility]) [address] [place] [address] 04856 Nucleated RBC/100 WBC (Bld) [Ratio] 0.0 /100 WBCs Normal 0.0-0.0 [facility] Comment on above: Performed By: #### 5 7021-8 #### SHAHID NEVAREZ ([id number]) [facility] ([facility]) [address] [place] [address] 63997 Platelets (Bld) [#/Vol] 174 x10*3/uL Normal 150-450 [facility] Comment on above: Result Comment: Plat elet count verified by smear review. Performed By: #### 5 7021-8 #### SHAHID NEVAREZ ([id number]) [facility] ([facility]) [address] [place] [address] 44920 RBC (Bld) [#/Vol] 3.48 x10*6/uL Low 4.00-5.[address] [facility] Comment on above: Performed By: #### 5 7021-8 #### SHAHID NEVAREZ ([id number]) [facility] ([facility]) [address] [place] [address] 19350 WBC (Bld) [#/Vol] 7.2 x10*3/uL Normal 4.4-11.3 [facility] Comment on above: Performed By: #### 5 7021-8 #### SHAHID NEVAREZ ([id number]) [facility] ([facility]) [address] [place] [address] [id number] Erythrocyte distribution width (RBC) [Ratio] 14.8 % High 11.5-14.5 [facility] Comment on above: Performed By: #### 5 7021-8 #### SHAHID NEVAREZ ([id number]) [facility] ([facility]) [address] [place] [address] Hematocrit (Bld) [Volume fraction] 35.0 % Low 36.0-46.0 [facility] Comment on above: Performed By: #### 5 7021-8 #### SHAHID NEVAREZ ([id number]) [facility] ([facility]) [address] [place] [address] 19515 Hemoglobin (Bld) [Mass/Vol] 11.3 g/dL Low 12.0-16.0 [facility] Comment on above: Performed By: #### 5 7021-8 #### SHAHID NEVAREZ ([id number]) [facility] ([facility]) [address] [place] [address] Immature granulocytes (Bld) [#/Vol] 0.03 x10*3/uL Normal 0.00-0.50 [facility] Comment on above: Performed By: #### 5 7021-8 #### SHAHID NEVAREZ ([id number]) [facility] ([facility]) [address] [place] [address] Immature granulocytes/100 WBC (Bld) 0.4 % Normal 0.0-0.9 [facility] Comment on above: Result Comment: Leesa ture Granulocyte Count (IG) includes promyelocytes, myelocytes and metamyelocytes but does not include bands. Percent differential counts (%) should be interpreted in the context of the absolute cell counts (cells/UL). Performed By: #### 5 7021-8 #### SHAHID NEVAREZ ([id number]) [facility] ([facility]) [address] [place], [place] [id number] MCH (RBC) [Entitic mass] 30.5 pg Normal 26.0-34.0 [facility] Comment on above: Performed By: #### 5 7021-8 #### SHAHID NEVAREZ ([id number]) [facility] ([facility]) [address] [place] [address] 53846 MCHC (RBC) [Mass/Vol] 32.3 g/dL Normal 32.0-36.0 [facility] Comment on above: Performed By: #### 5 7021-8 #### SHAHID NEVAREZ ([id number]) [facility] ([facility]) [address] [place] [address] 15825 MCV (RBC) [Entitic vol] 94 fL Normal 80-100 [facility] Comment on above: Performed By: #### 5 7021-8 #### SHAHID NEVAREZ ([id number]) [facility] ([facility]) [address] [place] [address] 29668 Nucleated RBC/100 WBC (Bld) [Ratio] 0.0 /100 WBCs Normal 0.0-0.0 [facility] Comment on above: Performed By: #### 5 7021-8 #### SHAHID NEVAREZ ([id number]) [facility] ([facility]) [address] [place] [address] 10136 Platelets (Bld) [#/Vol] 26 x10*3/uL Critically low 150-450 [facility] Comment on above: Performed By: #### 5 7021-8 #### SHAHID NEVAREZ ([id number]) [facility] ([facility]) [address] [place] [address] 70494 RBC (Bld) [#/Vol] 3.71 x10*6/uL Low 4.00-5.20 [facility] Comment on above: Performed By: #### 5 7021-8 #### SHAHID NEVAREZ ([id number]) [facility] ([facility]) [address] [place] [address] 53150 WBC (Bld) [#/Vol] 7.9 x10*3/uL Normal 4.4-11.3 [facility] Comment on above: Performed By: #### 5 7021-8 #### SHAHID NEVAREZ ([id number]) [facility] ([facility]) [address] [place] [address] 53039 Comprehensive metabolic 2000 panelon 03-16-2024 Albumin BCP dye [Mass/Vol] 3.7 g/dL 3.4 - 5.0 g/dL [facility] ALP [Catalytic activity/Vol] 123 U/L 33 - 136 U/L [facility] ALT With P-5'-P [Catalytic activity/Vol] 108 U/L High 7 - 45 U/L [facility] Comment on above: Patients treated wit h Sulfasalazine may generate falsely decreased results for ALT. Anion gap [Moles/Vol] 10 mmol/L 10 - 2 0 mmol/L [facility] AST With P-5'-P [Catalytic activity/Vol] 89 U/L High 9 - 39 U/L [facility] Bilirubin [Mass/Vol] 0.5 mg/dL 0.0 - 1 .2 mg/dL [facility] Calcium [Mass/Vol] 8.6 mg/dL 8.6 - 10. 3 mg/dL [facility] Chloride [Moles/Vol] 101 mmol/L 98 - 10 7 mmol/L [facility] CO2 [Moles/Vol] 26 mmol/L 21 - 32 mmol/L [facility] Creatinine [Mass/Vol] 0.91 mg/dL 0.50 - 1.05 mg/dL [facility] GFR/1.73 sq M.predicted among non-blacks MDRD (S/P/Bld) [Vol rate/Area] 65 mL/min/{1.73_m2} - PINF [facility] Comment on above: Calculations of sean mated GFR are performed using the 2020 CKD-EPI Study Refit equation without the race variable for the IDMS-Traceable creatinine methods. https://jasn.asnjournals.org/content//ASN.59312 39932 Glucose [Mass/Vol] 142 mg/dL High 74 - 99 mg/dL [facility] Interpretation and review of laboratory results Abnormal [facility] Potassium [Moles/Vol] 3.4 mmol/L Low 3.5 - 5.3 mmol/L [facility] Protein [Mass/Vol] 6.7 g/dL 6.4 - 8.2 g/dL [facility] Sodium [Moles/Vol] 134 mmol/L Low 136 - 145 mmol/L [facility] Urea nitrogen [Mass/Vol] 20 mg/dL 6 - 23 mg/dL [facility] Albumin BCP dye [Mass/Vol] 3.7 g/dL Normal 3.4-5.0 [facility] Comment on above: Performed By: #### 2 4323-8 #### SHAHID NEVAREZ ([id number]) [facility] ([facility]) [address] [place] [address] 73564 ALP [Catalytic activity/Vol] 123 U/L Normal 33-136 [facility] Comment on above: Performed By: #### 2 4323-8 #### SHAHID NEVAREZ ([id number]) [facility] ([facility]) [address] [place] [address] 11996 ALT With P-5'-P [Catalytic activity/Vol] 108 U/L High 7-45 [facility] Comment on above: Result Comment: Mimi ents treated with Sulfasalazine may generate falsely decreased results for ALT. Performed By: #### 2 432-8 #### SHAHID NEVAREZ ([id number]) [facility] ([facility]) [address] [place] [address] 06347 Anion gap [Moles/Vol] 10 mmol/L Normal 10-20 [facility] Comment on above: Performed By: #### 2 4322-8 #### SHAHID NEVAREZ ([id number]) [facility] ([facility]) [address] [place] [address] 91885 AST With P-5'-P [Catalytic activity/Vol] 89 U/L High 9-39 [facility] Comment on above: Performed By: #### 2 432-8 #### SHAHID NEVAREZ ([id number]) [facility] ([facility]) [address] [place] [address] 78369 Bilirubin [Mass/Vol] 0.5 mg/dL Normal 0.0-1.[address] [facility] Comment on above: Performed By: #### 2 3-8 #### SHAHID NEVAREZ ([id number]) [facility] ([facility]) [address] [place] [address] 73141 Calcium [Mass/Vol] 8.6 mg/dL Normal 8.6-10.3 [facility] Comment on above: Performed By: #### 2 4322-8 #### SHAHID NEVAREZ ([id number]) [facility] ([facility]) [address] [place] [address] Chloride [Moles/Vol] 101 mmol/L Normal 98-[address] [facility] Comment on above: Performed By: #### 2 4323-8 #### SHAHID NEVAREZ ([id number]) [facility] ([facility]) [address] [place] [address] CO2 [Moles/Vol] 26 mmol/L Normal 21-32 [facility] Comment on above: Performed By: #### 2 4323-8 #### SHAHID NEVAREZ ([id number]) [facility] ([facility]) [address] [place] [address] 00762 Creatinine [Mass/Vol] 0.91 mg/dL Normal 0.50-1.05 [facility] Comment on above: Performed By: #### 2 4323-8 #### SHAHID NEVAREZ ([id number]) [facility] ([facility]) [address] [place] [address] 92953 Glomerular filtration rate/1.73 sq M.predicted 65 mL/min/1.73m*2 Normal >60 [facility] Comment on above: Result Comment: Calc ulations of estimated GFR are performed using the 2020 CKD-EPI Study Refit equation without the race variable for the IDMS-Traceable creatinine methods. https://jasn.asnjournals.org/content//ASN.90285 90222 Performed By: #### 2 4323-8 #### SHAHID NEVAREZ ([id number]) [facility] ([facility]) [address] [place] [address] Glucose [Mass/Vol] 142 mg/dL High 74-99 [facility] Comment on above: Performed By: #### 2 4323-8 #### SHAHID NEVAREZ ([id number]) [facility] ([facility]) [address] [place] [address] Potassium [Moles/Vol] 3.4 mmol/L Low 3.5-5.3 [facility] Comment on above: Performed By: #### 2 4323-8 #### SHAHID NEVAREZ ([id number]) [facility] ([facility]) [address] [place] [address] 06520 Protein [Mass/Vol] 6.7 g/dL Normal 6.4-8.2 [facility] Comment on above: Performed By: #### 2 4323-8 #### SHAHID NEVAREZ ([id number]) [facility] ([facility]) [address] [place] [address] 61771 Sodium [Moles/Vol] 134 mmol/L Low 136-145 [facility] Comment on above: Performed By: #### 2 4323-8 #### SHAHID NEVAREZ ([id number]) [facility] ([facility]) [address] [place] [address] 62350 Urea nitrogen [Mass/Vol] 20 mg/dL Normal 6-23 [facility] Comment on above: Performed By: #### 2 432-8 #### SHAHID NEVAREZ ([id number]) [facility] ([facility]) [address] [place] [address] 08465 Albumin BCP dye [Mass/Vol] 3.6 g/dL Normal 3.4-5.0 [facility] Comment on above: Performed By: #### 2 432-8 #### SHAHID NEVAREZ ([id number]) [facility] ([facility]) [address] [place] [address] 21194 ALP [Catalytic activity/Vol] 125 U/L Normal 33-136 [facility] Comment on above: Performed By: #### 2 4323-8 #### SHAHID NEVAREZ ([id number]) [facility] ([facility]) [address] [place] [address] 17522 ALT With P-5'-P [Catalytic activity/Vol] 113 U/L High 7-45 [facility] Comment on above: Result Comment: Mimi ents treated with Sulfasalazine may generate falsely decreased results for ALT. Performed By: #### 2 4323-8 #### SHAHID NEVAREZ ([id number]) [facility] ([facility]) [address] [place] [address] 21741 Anion gap [Moles/Vol] 13 mmol/L Normal 10-20 [facility] Comment on above: Performed By: #### 2 432-8 #### SHAHID NEVAREZ ([id number]) [facility] ([facility]) [address] [place] [address] 79767 AST With P-5'-P [Catalytic activity/Vol] 98 U/L High 9-39 [facility] Comment on above: Performed By: #### 2 432-8 #### SHAHID NEVAREZ ([id number]) [facility] ([facility]) [address] [place] [address] 48766 Bilirubin [Mass/Vol] 0.5 mg/dL Normal 0.0-1.2 [facility] Comment on above: Performed By: #### 2 4322-8 #### SHAHID NEVAREZ ([id number]) [facility] ([facility]) [address] [place] [address] 86739 Calcium [Mass/Vol] 8.6 mg/dL Normal 8.6-10.3 [facility] Comment on above: Performed By: #### 2 4322-8 #### SHAHID NEVAREZ ([id number]) [facility] ([facility]) [address] [place] [address] 79421 Chloride [Moles/Vol] 97 mmol/L Low 98-107 [facility] Comment on above: Performed By: #### 2 4322-8 #### SHAHID NEVAREZ ([id number]) [facility] ([facility]) [address] [place] [address] 91822 CO2 [Moles/Vol] 27 mmol/L Normal 21-32 [facility] Comment on above: Performed By: #### 2 4322-8 #### SHAHID NEVAREZ ([id number]) [facility] ([facility]) [address] [place] [address] 66599 Creatinine [Mass/Vol] 0.94 mg/dL Normal 0.50-1.05 [facility] Comment on above: Performed By: #### 2 4322-8 #### SHAHID NEVAREZ ([id number]) [facility] ([facility]) [facility] [place] [address] Glomerular filtration rate/1.73 sq M.predicted 62 mL/min/1.73m*2 Normal >60 [facility] Comment on above: Result Comment: Calc ulations of estimated GFR are performed using the 2020 CKD-EPI Study Refit equation without the race variable for the IDMS-Traceable creatinine methods. https://jasn.asnjournals.org/content/early//ASN.25022 26507 Performed By: #### 2 4323-8 #### SHAHID NEVAREZ ([id number]) [facility] ([facility]) [address] [place] [address] 62924 Glucose [Mass/Vol] 130 mg/dL High 74-99 [facility] Comment on above: Performed By: #### 2 432-8 #### SHAHID NEVAREZ ([id number]) [facility] ([facility]) [address] [place] [address] 21250 Potassium [Moles/Vol] 3.8 mmol/L Normal 3.5-5.3 [facility] Comment on above: Performed By: #### 2 4323-8 #### SHAHID NEVAREZ ([id number]) [facility] ([facility]) [address] [place] [address] 50562 Protein [Mass/Vol] 6.2 g/dL Low 6.4-8.2 [facility] Comment on above: Performed By: #### 2 4323-8 #### SHAHID NEVAREZ ([id number]) [facility] ([facility]) [address] [place] [address] 11182 Sodium [Moles/Vol] 133 mmol/L Low 136-145 [facility] Comment on above: Performed By: #### 2 4323-8 #### SHAHID NEVAREZ ([id number]) [facility] ([facility]) [address] [place] [address] 01155 Urea nitrogen [Mass/Vol] 17 mg/dL Normal 6-23 [facility] Comment on above: Performed By: #### 2 4323-8 #### SHAHID NEVAREZ ([id number]) [facility] ([facility]) [address] [place] [address] 10368 Manual differential performe d Ql (Bld)on 03-16-2024 Basophils (Bld) [#/Vol] 0.00 x10*3/uL Normal 0.00-0.10 [facility] Comment on above: Performed By: #### 5 0957-0 #### SHAHID NEVAREZ ([id number]) [facility] ([facility]) [address] [place] [address] 65756 Basophils/100 WBC (Bld) 0.0 % Normal 0.0-2.0 [facility] Comment on above: Performed By: #### 5 0957-0 #### SHAHID NEVAREZ ([id number]) [facility] ([facility]) [address] [place] [address] 75707 Cells Counted Total (Bld) [#] 100 Normal [facility] Comment on above: Performed By: #### 5 57-0 #### SHAHID NEVAREZ ([id number]) [facility] ([facility]) [address] [place] [address] 98139 Eosinophils (Bld) [#/Vol] 0.24 x10*3/uL Normal 0.00-0.40 [facility] Comment on above: Performed By: #### 5 57-0 #### SHAHID NEVAREZ ([id number]) [facility] ([facility]) [address] [place] [address] 63141 Eosinophils/100 WBC (Bld) 3.0 % Normal 0.0-6.0 [facility] Comment on above: Performed By: #### 5 57-0 #### SHAHID NEVAREZ ([id number]) [facility] ([facility]) [address] [place] [address] 19272 Giant platelets LM Ql (Bld) Few Normal [facility] Comment on above: Performed By: #### 5 0957-0 #### SHAHID NEVAREZ ([id number]) [facility] ([facility]) [address] [place] [address] 21942 Lymphocytes (Bld) [#/Vol] 2.84 x10*3/uL Normal 0.80-3.00 [facility] Comment on above: Performed By: #### 5 0957-0 #### SHAHID NEVAREZ ([id number]) [facility] ([facility]) [address] [place] [address] 45331 Lymphocytes/100 WBC (Bld) 36.0 % Normal 13.0-44.0 [facility] Comment on above: Performed By: #### 5 57-0 #### SHAHID NEVAREZ ([id number]) [facility] ([facility]) [address] [place] [address] 71166 Metamyelocytes (Bld) [#/Vol] 0.24 x10*3/uL Normal 0.00-0.00 [facility] Comment on above: Performed By: #### 5 57-0 #### SHAHID NEVAREZ ([id number]) [facility] ([facility]) [address] [place] [address] 87766 Metamyelocytes/100 WBC (Bld) 3.0 % Normal 0.0-0.0 [facility] Comment on above: Performed By: #### 5 57-0 #### SHAHID NEVAREZ ([id number]) [facility] ([facility]) [address] [place] [address] 41510 Monocytes (Bld) [#/Vol] 0.79 x10*3/uL Normal 0.05-0.80 [facility] Comment on above: Performed By: #### 5 57-0 #### SHAHID NEVAREZ ([id number]) [facility] ([facility]) [address] [place] [address] 81832 Monocytes/100 WBC (Bld) 10.0 % Normal 2.0-10.0 [facility] Comment on above: Performed By: #### 5 57-0 #### SHAHID NEVAREZ ([id number]) [facility] ([facility]) [address] [place] [address] 31517 RBC morphology finding Nom (Bld) See Below Normal [facility] Comment on above: Performed By: #### 5 57-0 #### SHAHID NEVAREZ ([id number]) [facility] ([facility]) [address] [place] [address] 32168 Schistocytes LM Ql (Bld) Few Normal [facility] Comment on above: Performed By: #### 5 0957-0 #### SHAHID NEVAREZ ([id number]) [facility] ([facility]) [address] [place] [address] 64302 Segmented neutrophils (Bld) [#/Vol] 3.79 x10*3/uL Normal 1.60-5.00 [facility] Comment on above: Performed By: #### 5 0957-0 #### SHAHID NEVAREZ ([id number]) [facility] ([facility]) [address] [place] [address] 53440 Segmented neutrophils/100 WBC (Bld) 48.0 % Normal 40.0-80.0 [facility] Comment on above: Result Comment: Perc ent differential counts (%) should be interpreted in the context of the absolute cell counts (cells/uL). Performed By: #### 5 0957-0 #### SHAHID NEVAREZ ([id number]) [facility] ([facility]) [address] [place] [address] 58673 No Panel Informationon 03-16 Extra Tube Hold for add-ons. [facility] Comment on above: Auto resulted. [facility] Pathologist review Pathologi st comment (Bld) [Interp]on 03-16-2024 PATH REVIEW-CBC DIFFERENTIAL Frequent platelet clumps. Repeat collection with including citrate tube may be of interest. Normocytic anemia with mild anisopoikilocytosis. [facility] Comment on above: Result Comment: Elec tronically signed out by Aria Rushing MD PhD on 03/19/24 at 2:12 PM. By the signature on this report, the individual or group listed as making the Final Interpretation/Diagnosis certifies that they have reviewed this case. Performed By: #### 1 4869-2 #### VALENTIN Mckeon ([id number]) [facility] ([facility]) [id number] [place] [address] 03664 RBC shape Nom (Bld)on 2023 Giant platelets LM Ql (Bld) Few [facility] RBC morphology finding Nom (Bld) See Below [facility] Schistocytes LM Ql (Bld) Few [facility] Giant platelets LM Ql (Bld) Few [facility] Comment on above: Performed By: #### 1 8225-3 #### KEY ROQUE ([id number]) [facility] ([facility]) [address] [place] [address] RBC morphology finding Nom (Bld) See Below [facility] Comment on above: Performed By: #### 1 8225-3 #### KEY WEHRLI ([id number]) [facility] ([facility]) [address] [place] [address] Schistocytes LM Ql (Bld) Few [facility] Comment on above: Performed By: #### 1 8225-3 #### KEY ROQUE ([id number]) [facility] ([facility]) [address] [place] [address] Slide RequestOrdered By: Bryan Morales on 03-16-2024 [facility] DBT Breast - bilateralon No mammographic evidence [...] information regarding high risk consultation, please call [phone]. BI-RADS CATEGORY: BI-RADS Category: 1 Negative. Recommendation: Routine Screening Mammogram in 1 Year. Recommended Date: 1 Year. Laterality: Bilateral. MACRO: None Signed by: Stephon Rendon 02/22/2024 9:27 AM Dictation workstation: [id number] [facility] Interpreted By: Stephon Rendon, STUDY: BI MAMMO BILATERAL SCREENING TOMOSYNTHESIS; 02/21/2024 1:22 pm ACCESSION NUMBER(S): [id number] ORDERING CLINICIAN: AKANKSHA MILLAN INDICATION: Screening. COMPARISON: [...] change. This study was interpreted with CAD. [facility] Stephon Rendon MD - 02/22/2024 Interpreted By: Stephon Rendon, STUDY: BI MAMMO BILATERAL SCREENING TOMOSYNTHESIS; 02/21/2024 1:22 pm ACCESSION NUMBER(S): [id number] ORDERING CLINICIAN: AKANKSHA MILLAN INDICATION: Screening. COMPARISON: [...] information regarding high risk consultation, please call [phone]. BI-RADS CATEGORY: BI-RADS Category: 1 Negative. Recommendation: Routine Screening Mammogram in 1 Year. Recommended Date: 1 Year. Laterality: Bilateral. MACRO: None Signed by: Stephon Rendon 02/22/2024 9:27 AM Dictation workstation: [id number] [facility] Work Phone: DBT Breast - bilateralOrdere d By: Stephon Rendon on 02-22-2024 [facility] Work Phone: BI MAMMO BILATERAL SCREENING TOMOSYNTHESISon 02-21-2024 BI MAMMO BILATERAL SCREENING TOMOSYNTHESIS Interpreted By: Stephon Rendon, STUDY: BI MAMMO BILATERAL SCREENING TOMOSYNTHESIS; 02/21/2024 1:22 pm ACCESSION NUMBER(S): [id number] ORDERING CLINICIAN: AKANKSHA MILLAN INDICATION: Screening. COMPARISON: [...] information regarding high risk consultation, please call [phone]. BI-RADS CATEGORY: BI-RADS Category: 1 Negative. Recommendation: Routine Screening Mammogram in 1 Year. Recommended Date: 1 Year. Laterality: Bilateral. MACRO: None Signed by: Stephon Rendon 02/22/2024 9:27 AM Dictation workstation: [id number] [facility] DBT Breast - bilateralon Radiology Study observation (narrative) [facility] Work Phone: Absolute lymphocyte countOrd ered By: Rashid Millan on 01-10-2024 Lymphocytes Auto (Unsp spec) [#/Vol] 1.17 10*3/uL 0.83-4.51 [facility] Automated lymphocyte count a s percentage of total leukocytesOrdered By: Rashid Millan on 01-10-2024 Lymphocytes/100 WBC Auto (Unsp spec) 25.9 % 19-41 [facility] Basophil percentageOrdered B y: Rashid Millan on 01-10-2024 Basophils/100 WBC (Bld) 0.9 % 0-1 [facility] Bilirubin [Mass/Vol] 0.40 mg/dL 0.20-1.00 [facility] Comment on above: For patients on eltr ombopag therapy, use of Dimension [place] TBIL is not recommended. Chloride [Moles/Vol] 103 mmol/L 98-107 [facility] Cholesterol [Mass/Vol] 231 mg/dL <200 [facility] Comment on above: <200 mg/dL Desirable 200-240 mg/dL Borderline >240 mg/dL High Risk Eosinophils/100 WBC (Bld) 4.7 % 0-5 [facility] Glucose [Mass/Vol] 88 mg/dL 74-106 [facility] Hemoglobin (Bld) [Mass/Vol] 13.2 g/dL 12.0-15.0 [facility] Monocytes/100 WBC (Bld) 8.0 % 0-10 [facility] Neutrophils (Bld) [#/Vol] 2.7 10*3/uL 2.0-7.7 [facility] Neutrophils/100 WBC (Bld) 60.3 % 47-70 [facility] Potassium [Moles/Vol] 4.1 mmol/L 3.5-5.1 [facility] Protein [Mass/Vol] 7.7 g/dL 6.4-8.2 [facility] Sodium [Moles/Vol] 136 mmol/L 136-145 [facility] Triglyceride [Mass/Vol] 84 mg/dL <199 [facility] Comment on above: The drugs N-Acetylcy steine and Metamizole may falsely depress this assay.Serum Triglycerides Reference Interval Normal <150 mg/dL Borderline high 150 - 199 mg/dL High 200 - 499 mg/dL Very High > or = 500 mg/dL WBC (Bld) [#/Vol] 4.5 10*3/uL 4.4-11.0 [facility] Determination of erythrocyte mean corpuscular volume (MCV)Ordered By: Rashid Millan on 01-10-2024 MCV (RBC) [Entitic vol] 93.1 fL 81-99 [facility] Erythrocyte distribution wid th ratioOrdered By: Rashid Millan on 01-10-2024 Erythrocyte distribution width (RBC) [Ratio] 12.8 % 11.6-14.6 [facility] Erythrocyte distribution wid th standard deviationOrdered By: Rashid Millan on 01-10-2024 Erythrocyte distribution width (RBC) [Entitic vol] 43.8 fL 35.1-43.9 [facility] Hematocrit Auto (Bld) [Volum e fraction]Ordered By: Rashid Millan on 01-10-2024 Hematocrit (Bld) [Volume fraction] 40.7 % 37-47 [facility] Immature granulocytes/100 WB C Auto (Bld)Ordered By: Rashid Millan on 01-10-2024 Immature granulocytes/100 WBC (Bld) 0.200 % 0.0-0.9 [facility] Comment on above: IG% - Immature Granu locytes (promyelocytes, myelocytes and metamyelocytes) > 1% indicates that a LEFT SHIFT is Present. Laboratory - Chemistry and C hemistry - challengeOrdered By: Rashid Millan on 01-10-2024 Albumin/Globulin [Mass ratio] 1.1 {ratio} 0.9-2.4 [facility] ALP [Catalytic activity/Vol] 43 U/L 45-117 [facility] ALT [Catalytic activity/Vol] 45 U/L 13-56 [facility] [facility] Cholesterol in HDL [Mass/Vol] 91 mg/dL >40 [facility] Comment on above: The drugs N-Acetylcy steine and Metamizole may falsely depress this assay. Reference Range HDL <40 mg/dL Low HDL Cholesterol HDL >or= 60 mg/dL High HDL Cholesterol Cholesterol in LDL [Mass/Vol] 123 mg/dL 0-130 [facility] CO2 [Moles/Vol] 30.0 mmol/L 21.0-32.0 [facility] Cobalamin (Vitamin B12) [Mass/Vol] 781 pg/mL 211-911 [facility] Globulin (S) [Mass/Vol] 3.7 g/dL 2.2-4.2 [facility] Urea nitrogen/Creatinine [Mass ratio] 19.5 mg/mg 10-20 [facility] Laboratory - Hematology and Cell countsOrdered By: Rashid Millan on 01-10-2024 MCH (RBC) [Entitic mass] 30.2 pg 27.0-32.0 [facility] MCHC (RBC) [Mass/Vol] 32.4 g/dL 32-36 [facility] Nucleated RBC/100 WBC (Bld) [Ratio] 0 % 0-5 [facility] Platelet mean volume (Bld) [Entitic vol] 11.3 fL 6.2-12.0 [facility] Platelets (Bld) [#/Vol] 193 10*3/uL 150-450 [facility] No Panel InformationOrdered By: Rashid Millan on 01-10-2024 Estimated GFR (MDRD) Amer 76 mL/min >60 [facility] Comment on above: GFR Calc Estimated GFR (MDRD) Non-Af Amer 62 mL/min >60 [facility] Comment on above: Non- GFR Calc VLDL Cholesterol 17 mg/dL 5-40 [facility] RBC Auto (Bld) [#/Vol]Ordere d By: Rashid Millan on 01-10-2024 RBC (Bld) [#/Vol] 4.37 10*6/uL 4.2-5.4 [facility] Serum or plasma calcium koki urement (mass/volume)Ordered By: Rashid Millan on 01-10-2024 Calcium [Mass/Vol] 9.3 mg/dL 8.5-10.1 [facility] Serum or plasma creatinine m easurement (mass/volume)Ordered By: Rashid Millan on 01-10-2024 Creatinine [Mass/Vol] 0.92 mg/dL 0.55-1.02 [facility] Comment on above: The validity of the calculated GFR & GFRAA in patients over 70 years has not been determined. Clinical correlation is essential. Serum or plasma urea nitroge n measurement (mass/volume)Ordered By: Rashid Millan on 01-10-2024 Urea nitrogen [Mass/Vol] 18 mg/dL 7-18 [facility] Thin prep Papanicolaou smear with manual screeningOrdered By: Rashid Millan on 01-10-2024 Thin prep Papanicolaou smear with manual screening 4.0 g/dL 3.2-5.0 [facility] Thin prep Papanicolaou smear with manual screening 41 U/L 15-37 [facility] Thin prep Papanicolaou smear with manual screening 3 5-15 [facility] POCT UA Automated manually r esultedon 12-20-2023 Appearance (U) Clear Clear [facility] Work Phone: Glucose Test strip (U) [Mass/Vol] Negative NEGATIVE mg/dl [facility] Work Phone: [phone] Hemoglobin Ql (U) Negative NEGATIVE [facility] Work Phone: [phone] Leukocyte esterase Test strip Ql (U) Negative NEGATIVE [facility] Work Phone: [phone] Nitrite Ql (U) Negative NEGATIVE [facility] Work Phone: [phone] pH (U) 7.0 [pH] No Reference Range Established [facility] Work Phone: [phone] POC Bilirubin, Urine Negative NEGATIVE [facility] Work Phone: [phone] POC Color, Urine Yellow Straw, Yellow, Light-Yellow [facility] Work Phone: [phone] POC Ketones, Urine Negative NEGATIVE mg/dl [facility] Work Phone: [phone] POC Protein, Urine Negative NEGATIVE, 30 (1+) mg/dl [facility] Work Phone: [phone] POC Specific Humphrey, Urine 1.010 1.005 - 1.035 [facility] Work Phone: POC Urobilinogen, Urine 0.2 0.2, 1.0 EU/DL [facility] Work Phone: [facility] Work Phone: POCT UA Automated manually r esultedOrdered By: Naomi Ardon on 12-12-2023 Appearance (U) Clear Clear [facility] Glucose Test strip (U) [Mass/Vol] Negative NEGATIVE mg/dl [facility] Hemoglobin Ql (U) LARGE (3+) Abnormal NEGATIVE [facility] Interpretation and review of laboratory results Abnormal [facility] Leukocyte esterase Test strip Ql (U) MODERATE (2+) Abnormal NEGATIVE [facility] Nitrite Ql (U) Negative NEGATIVE [facility] pH (U) 6.5 [pH] No Reference Range Established [facility] POC Bilirubin, Urine Negative NEGATIVE [facility] POC Color, Urine Yellow Straw, Yellow, Light-Yellow [facility] POC Ketones, Urine Negative NEGATIVE mg/dl [facility] POC Protein, Urine Negative NEGATIVE, 30 (1+) mg/dl [facility] POC Specific Humphrey, Urine 1.010 1.005 - 1.035 [facility] POC Urobilinogen, Urine 0.2 0.2, 1.0 EU/DL [facility] Basophil percentageOrdered B y: Lety Marcelo on 10-18-2023 Bilirubin [Mass/Vol] 0.30 mg/dL 0.20-1.00 [facility] Comment on above: For patients on eltr ombopag therapy, use of Dimension [place] TBIL is not recommended. Chloride [Moles/Vol] 103 mmol/L 98-107 [facility] Glucose [Mass/Vol] 89 mg/dL 74-106 [facility] Potassium [Moles/Vol] 3.8 mmol/L 3.5-5.1 [facility] Protein [Mass/Vol] 7.0 g/dL 6.4-8.2 [facility] Sodium [Moles/Vol] 136 mmol/L 136-145 [facility] Laboratory - Chemistry and C hemistry - challengeOrdered By: Lety Marcelo on 10-18-2023 Albumin/Globulin [Mass ratio] 1.0 {ratio} 0.9-2.4 [facility] ALP [Catalytic activity/Vol] 51 U/L 45-117 [facility] ALT [Catalytic activity/Vol] 40 U/L 13-56 [facility] CO2 [Moles/Vol] 28.0 mmol/L 21.0-32.0 [facility] Globulin (S) [Mass/Vol] 3.5 g/dL 2.2-4.2 [facility] Urea nitrogen/Creatinine [Mass ratio] 20.7 mg/mg 10-20 [facility] No Panel InformationOrdered By: Lety Marcelo on 10-18-2023 Estimated GFR (MDRD) Amer 87 mL/min >60 [facility] Comment on above: GFR Calc Estimated GFR (MDRD) Non-Af Amer 72 mL/min >60 [facility] Comment on above: Non- GFR Calc Serum or plasma calcium koki urement (mass/volume)Ordered By: Lety Marcelo on 10-18-2023 Calcium [Mass/Vol] 8.8 mg/dL 8.5-10.1 [facility] Serum or plasma creatinine m easurement (mass/volume)Ordered By: Lety Marcelo on 10-18-2023 Creatinine [Mass/Vol] 0.82 mg/dL 0.55-1.02 [facility] Comment on above: The validity of the calculated GFR & GFRAA in patients over 70 years has not been determined. Clinical correlation is essential. Serum or plasma urea nitroge n measurement (mass/volume)Ordered By: Lety Marcelo on 10-18-2023 Urea nitrogen [Mass/Vol] 17 mg/dL 7-18 [facility] Thin prep Papanicolaou smear with manual screeningOrdered By: Lety Marcelo on 10-18-2023 Thin prep Papanicolaou smear with manual screening 3.5 g/dL 3.2-5.0 [facility] Thin prep Papanicolaou smear with manual screening 44 U/L 15-37 [facility] Thin prep Papanicolaou smear with manual screening 5 5-15 [facility] Absolute lymphocyte countOrd ered By: Lety Marcelo on 09-30-2023 Lymphocytes Auto (Unsp spec) [#/Vol] 0.76 10*3/uL 0.83-4.51 [facility] Basophil percentageOrdered B y: Lety Marcelo on 09-30-2023 Basophils/100 WBC (Bld) 0.2 % 0-1 [facility] Bilirubin [Mass/Vol] 0.30 mg/dL 0.20-1.00 [facility] Comment on above: For patients on eltr ombopag therapy, use of Dimension [place] TBIL is not recommended. Chloride [Moles/Vol] 100 mmol/L 98-107 [facility] Eosinophils/100 WBC (Bld) 0.8 % 0-5 [facility] Glucose [Mass/Vol] 102 mg/dL 74-106 [facility] Comment on above: Fasting Glucose resu lt from 100 to 125 mg/dL suggests IMPAIRED HOMEOSTASIS per A.D.A. criteria. Neutrophils (Bld) [#/Vol] 8.9 10*3/uL 2.0-7.7 [facility] Neutrophils/100 WBC (Bld) 84.5 % 47-70 [facility] Potassium [Moles/Vol] 3.8 mmol/L 3.5-5.1 [facility] Protein [Mass/Vol] 7.3 g/dL 6.4-8.2 [facility] Sodium [Moles/Vol] 134 mmol/L 136-145 [facility] WBC (Bld) [#/Vol] 10.5 10*3/uL 4.4-11.0 [facility] Blood erythrocytes count (nu mber/volume)Ordered By: Lety Marcelo on 09-30-2023 RBC (Bld) [#/Vol] 3.58 10*6/uL 4.2-5.4 [facility] Blood hemoglobin measurement (mass/volume)Ordered By: Lety Marcelo on 09-30-2023 Hemoglobin (Bld) [Mass/Vol] 11.4 g/dL 12.0-15.0 [facility] Blood lymphocytes/100 leukoc ytesOrdered By: Lety Marcelo on 09-30-2023 Lymphocytes/100 WBC (Bld) 7.3 % 19-41 [facility] Blood monocytes/100 leukocyt esOrdered By: Lety Marcelo on 09-30-2023 Monocytes/100 WBC (Bld) 6.8 % 0-10 [facility] Blood platelet mean volumeOr dered By: Lety Marcelo on 09-30-2023 Platelet mean volume (Bld) [Entitic vol] 10.1 fL 6.2-12.0 [facility] Determination of erythrocyte mean corpuscular volume (MCV)Ordered By: Lety Marcelo on 09-30-2023 MCV (RBC) [Entitic vol] 99.2 fL 81-99 [facility] Hematocrit Auto (Bld) [Volum e fraction]Ordered By: Lety Marcelo on 09-30-2023 Hematocrit (Bld) [Volume fraction] 35.5 % 37-47 [facility] Laboratory - Chemistry and C hemistry - challengeOrdered By: Lety Marcelo on 09-30-2023 ALP [Catalytic activity/Vol] 72 U/L 45-117 [facility] ALT [Catalytic activity/Vol] 61 U/L 13-56 [facility] CO2 [Moles/Vol] 29.0 mmol/L 21.0-32.0 [facility] Globulin (S) [Mass/Vol] 4.0 g/dL 2.2-4.2 [facility] Urea nitrogen/Creatinine [Mass ratio] 24.4 mg/mg 10-20 [facility] Laboratory - Hematology and Cell countsOrdered By: Letymirtha Marcelo on 09-30-2023 Erythrocyte distribution width (RBC) [Entitic vol] 48.0 fL 35.1-43.9 [facility] Erythrocyte distribution width (RBC) [Ratio] 13.3 % 11.6-14.6 [facility] Immature granulocytes/100 WBC (Bld) 0.400 % 0.0-0.9 [facility] Comment on above: IG% - Immature Granu locytes (promyelocytes, myelocytes and metamyelocytes) > 1% indicates that a LEFT SHIFT is Present. MCH (RBC) [Entitic mass] 31.8 pg 27.0-32.0 [facility] Nucleated RBC/100 WBC (Bld) [Ratio] 0 % 0-5 [facility] MCHC Auto (RBC) [Mass/Vol]Or dered By: Letymirtha Marcelo on 09-30-2023 MCHC (RBC) [Mass/Vol] 32.1 g/dL 32-36 [facility] No Panel InformationOrdered By: Letymirtha Marcelo on 09-30-2023 Estimated GFR (MDRD) Amer 82 mL/min >60 [facility] Comment on above: GFR Calc Estimated GFR (MDRD) Non-Af Amer 68 mL/min >60 [facility] Comment on above: Non- GFR Calc Platelets bldOrdered By: Yasmine Marcelo on 09-30-2023 Platelets (Bld) [#/Vol] 288 10*3/uL 150-450 [facility] Serum or plasma albumin koki urement (mass/volume)Ordered By: Lety Marcelo on 09-30-2023 Albumin [Mass/Vol] 3.3 g/dL 3.2-5.0 [facility] Serum or plasma albumin/glob ulin mass ratioOrdered By: Lety Marcelo on 09-30-2023 Albumin/Globulin [Mass ratio] 0.8 {ratio} 0.9-2.4 [facility] Serum or plasma calcium koki urement (mass/volume)Ordered By: Lety Marcelo on 09-30-2023 Calcium [Mass/Vol] 9.3 mg/dL 8.5-10.1 [facility] Serum or plasma creatinine m easurement (mass/volume)Ordered By: Lety Marcelo on 09-30-2023 Creatinine [Mass/Vol] 0.86 mg/dL 0.55-1.02 [facility] Comment on above: The validity of the calculated GFR & GFRAA in patients over 70 years has not been determined. Clinical correlation is essential. Serum or plasma urea nitroge n measurement (mass/volume)Ordered By: Lety Marcelo on 09-30-2023 Urea nitrogen [Mass/Vol] 21 mg/dL 7-18 [facility] Thin prep Papanicolaou smear with manual screeningOrdered By: Lety Marcelo on 09-30-2023 Thin prep Papanicolaou smear with manual screening 34 U/L 15-37 [facility] Thin prep Papanicolaou smear with manual screening 5 5-15 [facility] US Heart TransthoracicOrdere d By: Milan Reid on 09-06-2023 Aortic Valve Area by Continuity of Peak Velocity 2.32 [facility] Work Phone: Aortic Valve Area by Continuity of VTI 1.96 [facility] Work Phone: AV mn grad 3.0 [facility] Work Phone: AV pk grad 6.0 [facility] Work Phone: AV pk hardeep 1.22 [facility] Work Phone: LA vol index A/L 20.8 [facility] Work Phone: LV A4C EF 64.4 [facility] Work Phone: LV biplane EF 63 [facility] Work Phone: LVIDd 4.46 [facility] Work Phone: LVOT diam 1.90 [facility] Work Phone: MV E/A ratio 1.09 [facility] Work Phone: RV free wall pk S' 12.90 [facility] Work Phone: Tricuspid annular plane systolic excursion 2.3 [facility] Work Phone: [facility] Work Phone: [place] [phone] [phone], TRANSTHORACIC ECHOCARDIOGRAM REPORT Patient Name: KIM De Luna Physician: [id number] Reid MD Study Date: 09/06/2023 Ordering Provider: Moe REID MRN/PID: [id number] Fellow: Nurse: Sweta Mcmahan RN Date of 1945 Senior Product Development Scientist: Tommie Marcos RDCS /Age: years Gender: F Additional Staff: Height: 167.64 cm Admit Date: Weight: 63.96 kg Admission Status: Outpatient BSA: 1.72 m2 Department [facility] Echo Lab Location: Blood Pressure: 174 /102 mmHg Study Type: TRANSTHORACIC ECHO (TTE) COMPLETE Diagnosis/ICD: Syncope-R55 CPT Codes: Echo Complete w Full Doppler-[id number] Study Detail: The following Echo studies were [...] LA Area A2C: 12.4 cm2 LA [place] A4C: 5.0 cm LA [place] A2C: 4.6 cm LA Volume Index: 23.5 [...] TAPSE: 22.7 mm RV s' 0.13 m/s [id number] Milan Reid MD Electronically signed on 09/06/2023 at 12:43:19 PM Final Milan Angela MD - 09/06/2023 [place] [phone] [phone], TRANSTHORACIC ECHOCARDIOGRAM REPORT Patient Name: KIM ROCHA Reading Physician: [id number] Reid MD Study Date: 09/06/2023 Ordering Provider: [id number] MILAN REID MRN/PID: [id number] Fellow: Nurse: Sweta Mcmahan RN Date of 1945 Senior Product Development Scientist: Tommie Marcos RDCS /Age: years Gender: F Additional Staff: Height: 167.64 cm Admit Date: Weight: 63.96 kg Admission Status: Outpatient BSA: 1.72 m2 Department [facility] Echo Lab Location: Blood Pressure: 174 /102 mmHg Study Type: TRANSTHORACIC ECHO (TTE) COMPLETE Diagnosis/ICD: Syncope-R55 CPT Codes: Echo Complete w Full Doppler-[id number] Study Detail: The following Echo studies were [...] LA Area A2C: 12.4 cm2 LA [place] A4C: 5.0 cm LA [place] A2C: 4.6 cm LA Volume Index: 23.5 [...] TAPSE: 22.7 mm RV s' 0.13 m/s [id number] Milan Reid MD Electronically signed on 09/06/2023 at 12:43:19 PM Final [facility] Work Phone: ECG 12 lead (Clinic Performe d)on 08-25-2023 EKG shows sinus bradycardia, normal QTc, heart rate [address]-T segment changes [facility] Work Phone: Absolute lymphocyte countOrd ered By: Lety Marcelo on 06-30-2023 Lymphocytes Auto (Unsp spec) [#/Vol] 1.04 10*3/uL 0.83-4.51 [facility] Basophil percentageOrdered B y: Lety Marcelo on 06-30-2023 Basophils/100 WBC (Bld) 0.7 % 0-1 [facility] Bilirubin [Mass/Vol] 0.50 mg/dL 0.20-1.00 [facility] Comment on above: For patients on eltr ombopag therapy, use of Dimension [place] TBIL is not recommended. Chloride [Moles/Vol] 104 mmol/L 98-107 [facility] Eosinophils/100 WBC (Bld) 3.2 % 0-5 [facility] Glucose [Mass/Vol] 81 mg/dL 74-106 [facility] Neutrophils (Bld) [#/Vol] 2.7 10*3/uL 2.0-7.7 [facility] Neutrophils/100 WBC (Bld) 61.7 % 47-70 [facility] Potassium [Moles/Vol] 4.1 mmol/L 3.5-5.1 [facility] Protein [Mass/Vol] 7.2 g/dL 6.4-8.2 [facility] Sodium [Moles/Vol] 137 mmol/L 136-145 [facility] WBC (Bld) [#/Vol] 4.4 10*3/uL 4.4-11.0 [facility] Blood erythrocytes count (nu mber/volume)Ordered By: Lety Marcelo on 06-30-2023 RBC (Bld) [#/Vol] 3.73 10*6/uL 4.2-5.4 [facility] Blood hemoglobin measurement (mass/volume)Ordered By: Lety Marcelo on 06-30-2023 Hemoglobin (Bld) [Mass/Vol] 12.0 g/dL 12.0-15.0 [facility] Blood lymphocytes/100 leukoc ytesOrdered By: Lety Marcelo on 06-30-2023 Lymphocytes/100 WBC (Bld) 23.9 % 19-41 [facility] Blood monocytes/100 leukocyt esOrdered By: Lety Marcelo on 06-30-2023 Monocytes/100 WBC (Bld) 10.3 % 0-10 [facility] Blood platelet mean volumeOr dered By: Lety Mareclo on 06-30-2023 Platelet mean volume (Bld) [Entitic vol] 11.2 fL 6.2-12.0 [facility] Determination of erythrocyte mean corpuscular volume (MCV)Ordered By: Lety Marcelo on 06-30-2023 MCV (RBC) [Entitic vol] 100.3 fL 81-99 [facility] Hematocrit Auto (Bld) [Volum e fraction]Ordered By: Lety Marcelo on 06-30-2023 Hematocrit (Bld) [Volume fraction] 37.4 % 37-47 [facility] Laboratory - Chemistry and C hemistry - challengeOrdered By: Lety Marcelo on 06-30-2023 ALP [Catalytic activity/Vol] 38 U/L 45-117 [facility] ALT [Catalytic activity/Vol] 43 U/L 13-56 [facility] CO2 [Moles/Vol] 30.0 mmol/L 21.0-32.0 [facility] Globulin (S) [Mass/Vol] 3.4 g/dL 2.2-4.2 [facility] Urea nitrogen/Creatinine [Mass ratio] 23.2 mg/mg 10-20 [facility] Laboratory - Hematology and Cell countsOrdered By: Lety Marcelo on 06-30-2023 Erythrocyte distribution width (RBC) [Entitic vol] 48.6 fL 35.1-43.9 [facility] Erythrocyte distribution width (RBC) [Ratio] 13.3 % 11.6-14.6 [facility] Immature granulocytes/100 WBC (Bld) 0.200 % 0.0-0.9 [facility] Comment on above: IG% - Immature Granu locytes (promyelocytes, myelocytes and metamyelocytes) > 1% indicates that a LEFT SHIFT is Present. MCH (RBC) [Entitic mass] 32.2 pg 27.0-32.0 [facility] Nucleated RBC/100 WBC (Bld) [Ratio] 0 % 0-5 [facility] MCHC Auto (RBC) [Mass/Vol]Or dered By: Lety Marcelo on 06-30-2023 MCHC (RBC) [Mass/Vol] 32.1 g/dL 32-36 [facility] No Panel InformationOrdered By: Lety Marcelo on 06-30-2023 Estimated GFR (MDRD) Amer 70 mL/min >60 [facility] Comment on above: GFR Calc Estimated GFR (MDRD) Non-Af Amer 57 mL/min >60 [facility] Comment on above: Non- GFR Calc Platelets bldOrdered By: Yasmine Marcelo on 06-30-2023 Platelets (Bld) [#/Vol] 189 10*3/uL 150-450 [facility] Serum or plasma albumin koki urement (mass/volume)Ordered By: Lety Macrelo on 06-30-2023 Albumin [Mass/Vol] 3.8 g/dL 3.2-5.0 [facility] Serum or plasma albumin/glob ulin mass ratioOrdered By: Lety Marcelo on 06-30-2023 Albumin/Globulin [Mass ratio] 1.1 {ratio} 0.9-2.4 [facility] Serum or plasma calcium koki urement (mass/volume)Ordered By: Lety Marcelo on 06-30-2023 Calcium [Mass/Vol] 9.2 mg/dL 8.5-10.1 [facility] Serum or plasma creatinine m easurement (mass/volume)Ordered By: Lety Marcelo on 06-30-2023 Creatinine [Mass/Vol] 0.99 mg/dL 0.55-1.02 [facility] Comment on above: The validity of the calculated GFR & GFRAA in patients over 70 years has not been determined. Clinical correlation is essential. Serum or plasma urea nitroge n measurement (mass/volume)Ordered By: Lety Marcelo on 06-30-2023 Urea nitrogen [Mass/Vol] 23 mg/dL 7-18 [facility] Thin prep Papanicolaou smear with manual screeningOrdered By: Lety Marcelo on 06-30-2023 Thin prep Papanicolaou smear with manual screening 38 U/L 15-37 [facility] Thin prep Papanicolaou smear with manual screening 3 5-15 [facility] Absolute lymphocyte countOrd ered By: Lety Marcelo on 04-28-2023 Lymphocytes Auto (Unsp spec) [#/Vol] 1.10 10*3/uL 0.83-4.51 [facility] Basophil percentageOrdered B y: Lety Marcelo on 04-28-2023 Basophils/100 WBC (Bld) 0.5 % 0-1 [facility] Bilirubin [Mass/Vol] 0.50 mg/dL 0.20-1.00 [facility] Comment on above: For patients on eltr ombopag therapy, use of Dimension [place] TBIL is not recommended. Chloride [Moles/Vol] 102 mmol/L 98-107 [facility] Eosinophils/100 WBC (Bld) 4.3 % 0-5 [facility] Glucose [Mass/Vol] 75 mg/dL 74-106 [facility] Neutrophils (Bld) [#/Vol] 2.4 10*3/uL 2.0-7.7 [facility] Neutrophils/100 WBC (Bld) 57.8 % 47-70 [facility] Potassium [Moles/Vol] 3.8 mmol/L 3.5-5.1 [facility] Protein [Mass/Vol] 7.3 g/dL 6.4-8.2 [facility] Sodium [Moles/Vol] 135 mmol/L 136-145 [facility] WBC (Bld) [#/Vol] 4.1 10*3/uL 4.4-11.0 [facility] Blood erythrocytes count (nu mber/volume)Ordered By: Lety Marcelo on 04-28-2023 RBC (Bld) [#/Vol] 3.77 10*6/uL 4.2-5.4 [facility] Blood hemoglobin measurement (mass/volume)Ordered By: Lety Marcelo on 04-28-2023 Hemoglobin (Bld) [Mass/Vol] 12.3 g/dL 12.0-15.0 [facility] Blood lymphocytes/100 leukoc ytesOrdered By: Lety Marcelo on 04-28-2023 Lymphocytes/100 WBC (Bld) 26.6 % 19-41 [facility] Blood monocytes/100 leukocyt esOrdered By: Lety Marcelo on 04-28-2023 Monocytes/100 WBC (Bld) 10.6 % 0-10 [facility] Blood platelet mean volumeOr dered By: Lety Marcelo on 04-28-2023 Platelet mean volume (Bld) [Entitic vol] 10.5 fL 6.2-12.0 [facility] Determination of erythrocyte mean corpuscular volume (MCV)Ordered By: Lety Marcelo on 04-28-2023 MCV (RBC) [Entitic vol] 97.3 fL 81-99 [facility] Hematocrit Auto (Bld) [Volum e fraction]Ordered By: Lety Marcelo on 04-28-2023 Hematocrit (Bld) [Volume fraction] 36.7 % 37-47 [facility] Laboratory - Chemistry and C hemistry - challengeOrdered By: Lety Marcelo on 04-28-2023 ALP [Catalytic activity/Vol] 39 U/L 45-117 [facility] ALT [Catalytic activity/Vol] 43 U/L 13-56 [facility] CO2 [Moles/Vol] 28.0 mmol/L 21.0-32.0 [facility] Globulin (S) [Mass/Vol] 3.5 g/dL 2.2-4.2 [facility] Urea nitrogen/Creatinine [Mass ratio] 18.4 mg/mg 10-20 [facility] Laboratory - Hematology and Cell countsOrdered By: Lety Marcelo on 04-28-2023 Erythrocyte distribution width (RBC) [Entitic vol] 47.8 fL 35.1-43.9 [facility] Erythrocyte distribution width (RBC) [Ratio] 13.4 % 11.6-14.6 [facility] Immature granulocytes/100 WBC (Bld) 0.200 % 0.0-0.9 [facility] Comment on above: IG% - Immature Granu locytes (promyelocytes, myelocytes and metamyelocytes) > 1% indicates that a LEFT SHIFT is Present. MCH (RBC) [Entitic mass] 32.6 pg 27.0-32.0 [facility] Nucleated RBC/100 WBC (Bld) [Ratio] 0 % 0-5 [facility] MCHC Auto (RBC) [Mass/Vol]Or dered By: Lety Marcelo on 04-28-2023 MCHC (RBC) [Mass/Vol] 33.5 g/dL 32-36 [facility] No Panel InformationOrdered By: Lety Marcelo on 04-28-2023 Estimated GFR (MDRD) Amer 81 mL/min >60 [facility] Comment on above: GFR Calc Estimated GFR (MDRD) Non-Af Amer 67 mL/min >60 [facility] Comment on above: Non- GFR Calc Platelets bldOrdered By: Yasmine Marcelo on 04-28-2023 Platelets (Bld) [#/Vol] 181 10*3/uL 150-450 [facility] Serum or plasma albumin koki urement (mass/volume)Ordered By: Lety Marcelo on 04-28-2023 Albumin [Mass/Vol] 3.8 g/dL 3.2-5.0 [facility] Serum or plasma albumin/glob ulin mass ratioOrdered By: Lety Marcelo on 04-28-2023 Albumin/Globulin [Mass ratio] 1.1 {ratio} 0.9-2.4 [facility] Serum or plasma calcium koki urement (mass/volume)Ordered By: Lety Marcelo on 04-28-2023 Calcium [Mass/Vol] 9.1 mg/dL 8.5-10.1 [facility] Serum or plasma creatinine m easurement (mass/volume)Ordered By: Lety Marcelo on 04-28-2023 Creatinine [Mass/Vol] 0.87 mg/dL 0.55-1.02 [facility] Comment on above: The validity of the calculated GFR & GFRAA in patients over 70 years has not been determined. Clinical correlation is essential. Serum or plasma urea nitroge n measurement (mass/volume)Ordered By: Lety Marcelo on 04-28-2023 Urea nitrogen [Mass/Vol] 16 mg/dL 7-18 [facility] Thin prep Papanicolaou smear with manual screeningOrdered By: Lety Marcelo on 04-28-2023 Thin prep Papanicolaou smear with manual screening 41 U/L 15-37 [facility] Thin prep Papanicolaou smear with manual screening 5 5-15 [facility] Basophil percentageOrdered B y: Dr. Marcelo on 03-04-2023 Bilirubin [Mass/Vol] 0.60 mg/dL 0.20-1.00 [facility] Comment on above: For patients on eltr ombopag therapy, use of Dimension [place] TBIL is not recommended. Chloride [Moles/Vol] 104 mmol/L 98-107 [facility] Glucose [Mass/Vol] 89 mg/dL 74-106 [facility] Potassium [Moles/Vol] 4.0 mmol/L 3.5-5.1 [facility] Protein [Mass/Vol] 7.4 g/dL 6.4-8.2 [facility] Sodium [Moles/Vol] 138 mmol/L 136-145 [facility] Laboratory - Chemistry and C hemistry - challengeOrdered By: Dr. Marcelo on 03-04-2023 ALP [Catalytic activity/Vol] 43 U/L 45-117 [facility] ALT [Catalytic activity/Vol] 41 U/L 13-56 [facility] CO2 [Moles/Vol] 28.0 mmol/L 21.0-32.0 [facility] Globulin (S) [Mass/Vol] 3.7 g/dL 2.2-4.2 [facility] Urea nitrogen/Creatinine [Mass ratio] 19.1 mg/mg 10-20 [facility] No Panel InformationOrdered By: Dr. Marcelo on 03-04-2023 Estimated GFR (MDRD) Amer 79 mL/min >60 [facility] Comment on above: GFR Calc Estimated GFR (MDRD) Non-Af Amer 65 mL/min >60 [facility] Comment on above: Non- GFR Calc Serum or plasma albumin koki urement (mass/volume)Ordered By: Dr. aMrcelo on 03-04-2023 Albumin [Mass/Vol] 3.7 g/dL 3.2-5.0 [facility] Serum or plasma albumin/glob ulin mass ratioOrdered By: Dr. Marcelo on 03-04-2023 Albumin/Globulin [Mass ratio] 1.0 {ratio} 0.9-2.4 [facility] Serum or plasma calcium koki urement (mass/volume)Ordered By: Dr. Marcelo on 03-04-2023 Calcium [Mass/Vol] 9.5 mg/dL 8.5-10.1 [facility] Serum or plasma creatinine m easurement (mass/volume)Ordered By: Dr. Marcelo on 03-04-2023 Creatinine [Mass/Vol] 0.89 mg/dL 0.55-1.02 [facility] Comment on above: The validity of the calculated GFR & GFRAA in patients over 70 years has not been determined. Clinical correlation is essential. Serum or plasma urea nitroge n measurement (mass/volume)Ordered By: Dr. Marcelo on 03-04-2023 Urea nitrogen [Mass/Vol] 17 mg/dL 7-18 [facility] Thin prep Papanicolaou smear with manual screeningOrdered By: Dr. Marcelo on 03-04-2023 Thin prep Papanicolaou smear with manual screening 39 U/L 15-37 [facility] Thin prep Papanicolaou smear with manual screening 6 5-15 [facility] Absolute lymphocyte countOrd ered By: Dr. Marcelo on 02-25-2023 Lymphocytes Auto (Unsp spec) [#/Vol] 1.12 10*3/uL 0.83-4.51 [facility] Basophil percentageOrdered B y: Dr. Marcelo on 02-25-2023 Basophils/100 WBC (Bld) 0.8 % 0-1 [facility] Eosinophils/100 WBC (Bld) 4.9 % 0-5 [facility] Neutrophils (Bld) [#/Vol] 2.2 10*3/uL 2.0-7.7 [facility] Neutrophils/100 WBC (Bld) 57.0 % 47-70 [facility] WBC (Bld) [#/Vol] 3.9 10*3/uL 4.4-11.0 [facility] Blood erythrocytes count (nu mber/volume)Ordered By: Dr. Marcelo on 02-25-2023 RBC (Bld) [#/Vol] 3.93 10*6/uL 4.2-5.4 [facility] Blood hemoglobin measurement (mass/volume)Ordered By: Dr. Marcelo on 02-25-2023 Hemoglobin (Bld) [Mass/Vol] 12.4 g/dL 12.0-15.0 [facility] Blood lymphocytes/100 leukoc ytesOrdered By: Dr. Marcelo on 02-25-2023 Lymphocytes/100 WBC (Bld) 28.8 % 19-41 [facility] Blood monocytes/100 leukocyt esOrdered By: Dr. Marcelo on 02-25-2023 Monocytes/100 WBC (Bld) 8.2 % 0-10 [facility] Blood platelet mean volumeOr dered By: Dr. Marcelo on 02-25-2023 Platelet mean volume (Bld) [Entitic vol] 10.5 fL 6.2-12.0 [facility] Determination of erythrocyte mean corpuscular volume (MCV)Ordered By: Dr. Marcelo on 02-25-2023 MCV (RBC) [Entitic vol] 98.0 fL 81-99 [facility] Hematocrit Auto (Bld) [Volum e fraction]Ordered By: Dr. Marcelo on 02-25-2023 Hematocrit (Bld) [Volume fraction] 38.5 % 37-47 [facility] Laboratory - Hematology and Cell countsOrdered By: Dr. Marcelo on 02-25-2023 Erythrocyte distribution width (RBC) [Entitic vol] 47.5 fL 35.1-43.9 [facility] Erythrocyte distribution width (RBC) [Ratio] 13.2 % 11.6-14.6 [facility] Immature granulocytes/100 WBC (Bld) 0.300 % 0.0-0.9 [facility] Comment on above: IG% - Immature Granu locytes (promyelocytes, myelocytes and metamyelocytes) > 1% indicates that a LEFT SHIFT is Present. MCH (RBC) [Entitic mass] 31.6 pg 27.0-32.0 [facility] Nucleated RBC/100 WBC (Bld) [Ratio] 0 % 0-5 [facility] MCHC Auto (RBC) [Mass/Vol]Or dered By: Dr. Marcelo on 02-25-2023 MCHC (RBC) [Mass/Vol] 32.2 g/dL 32-36 [facility] Platelets bldOrdered By: Dr. Marcelo on 02-25-2023 Platelets (Bld) [#/Vol] 204 10*3/uL 150-450 [facility] DIGITAL MAMM SCREENING W/ TO Pierce 02-18-2023 DIGITAL MAMM SCREENING W/ GABRIELA Patient Name: KIM ROCHA STUDY: Digital mammography screening with gabriela; 02/18/2023 11:07 am ACCESSION NUMBER(S): [id number] ORDERING CLINICIAN: AKANKSHA MILLAN INDICATION: Screening. COMPARISON: [...] Screening. Electronically signed by: STEPHON RENDON MD [facility] Absolute lymphocyte countOrd ered By: Dr. Millan on 12-23-2022 Lymphocytes Auto (Unsp spec) [#/Vol] 0.84 10*3/uL 0.83-4.51 [facility] Basophil percentageOrdered B y: Dr. Millan on 12-23-2022 Basophils/100 WBC (Bld) 0.8 % 0-1 [facility] Bilirubin [Mass/Vol] 0.40 mg/dL 0.20-1.00 [facility] Comment on above: For patients on eltr ombopag therapy, use of Dimension [place] TBIL is not recommended. Chloride [Moles/Vol] 101 mmol/L 98-107 [facility] Cholesterol [Mass/Vol] 202 mg/dL <200 [facility] Comment on above: <200 mg/dL Desirable 200-240 mg/dL Borderline >240 mg/dL High Risk Eosinophils/100 WBC (Bld) 4.1 % 0-5 [facility] Glucose [Mass/Vol] 87 mg/dL 74-106 [facility] Neutrophils (Bld) [#/Vol] 2.5 10*3/uL 2.0-7.7 [facility] Neutrophils/100 WBC (Bld) 64.5 % 47-70 [facility] Potassium [Moles/Vol] 4.0 mmol/L 3.5-5.1 [facility] Protein [Mass/Vol] 7.4 g/dL 6.4-8.2 [facility] Sodium [Moles/Vol] 135 mmol/L 136-145 [facility] Triglyceride [Mass/Vol] 84 mg/dL <199 [facility] Comment on above: The drugs N-Acetylcy steine and Metamizole may falsely depress this assay.Serum Triglycerides Reference Interval Normal <150 mg/dL Borderline high 150 - 199 mg/dL High 200 - 499 mg/dL Very High > or = 500 mg/dL WBC (Bld) [#/Vol] 3.9 10*3/uL 4.4-11.0 [facility] Blood erythrocytes count (nu mber/volume)Ordered By: Dr. Millan on 12-23-2022 RBC (Bld) [#/Vol] 4.10 10*6/uL 4.2-5.4 [facility] Blood hemoglobin measurement (mass/volume)Ordered By: Dr. Millan on 12-23-2022 Hemoglobin (Bld) [Mass/Vol] 13.2 g/dL 12.0-15.0 [facility] Blood lymphocytes/100 leukoc ytesOrdered By: Dr. Millan on 12-23-2022 Lymphocytes/100 WBC (Bld) 21.4 % 19-41 [facility] Blood monocytes/100 leukocyt esOrdered By: Dr. Millan on 12-23-2022 Monocytes/100 WBC (Bld) 8.7 % 0-10 [facility] Blood platelet mean volumeOr dered By: Dr. Millan on 12-23-2022 Platelet mean volume (Bld) [Entitic vol] 10.4 fL 6.2-12.0 [facility] Determination of erythrocyte mean corpuscular volume (MCV)Ordered By: Dr. Millan on 12-23-2022 MCV (RBC) [Entitic vol] 98.0 fL 81-99 [facility] Hematocrit Auto (Bld) [Volum e fraction]Ordered By: Dr. Millan on 12-23-2022 Hematocrit (Bld) [Volume fraction] 40.2 % 37-47 [facility] Laboratory - Chemistry and C hemistry - challengeOrdered By: Dr. Millan on 12-23-2022 ALP [Catalytic activity/Vol] 45 U/L 45-117 [facility] ALT [Catalytic activity/Vol] 45 U/L 13-56 [facility] CO2 [Moles/Vol] 27.0 mmol/L 21.0-32.0 [facility] Cobalamin (Vitamin B12) [Mass/Vol] 608 pg/mL 211-911 [facility] Globulin (S) [Mass/Vol] 3.5 g/dL 2.2-4.2 [facility] Urea nitrogen/Creatinine [Mass ratio] 19.4 mg/mg 10-20 [facility] Laboratory - Hematology and Cell countsOrdered By: Dr. Millan on 12-23-2022 Erythrocyte distribution width (RBC) [Entitic vol] 47.5 fL 35.1-43.9 [facility] Erythrocyte distribution width (RBC) [Ratio] 13.3 % 11.6-14.6 [facility] Immature granulocytes/100 WBC (Bld) 0.500 % 0.0-0.9 [facility] Comment on above: IG% - Immature Granu locytes (promyelocytes, myelocytes and metamyelocytes) > 1% indicates that a LEFT SHIFT is Present. MCH (RBC) [Entitic mass] 32.2 pg 27.0-32.0 [facility] Nucleated RBC/100 WBC (Bld) [Ratio] 0 % 0-5 [facility] MCHC Auto (RBC) [Mass/Vol]Or dered By: Dr. Millan on 12-23-2022 MCHC (RBC) [Mass/Vol] 32.8 g/dL 32-36 [facility] No Panel InformationOrdered By: Dr. Millan on 12-23-2022 Estimated GFR (MDRD) Amer 80 mL/min >60 [facility] Comment on above: GFR Calc Estimated GFR (MDRD) Non-Af Amer 67 mL/min >60 [facility] Comment on above: Non- GFR Calc Thyroid Stimulating Hormone (TSH) 2.77 uIU/mL 0.358-3.74 [facility] Platelets bldOrdered By: Dr. Millan on 12-23-2022 Platelets (Bld) [#/Vol] 215 10*3/uL 150-450 [facility] Serum or plasma albumin koki urement (mass/volume)Ordered By: Dr. Millan on 12-23-2022 Albumin [Mass/Vol] 3.9 g/dL 3.2-5.0 [facility] Serum or plasma albumin/glob ulin mass ratioOrdered By: Dr. Millan on 12-23-2022 Albumin/Globulin [Mass ratio] 1.1 {ratio} 0.9-2.4 [facility] Serum or plasma calcium kkoi urement (mass/volume)Ordered By: Dr. Millan on 12-23-2022 Calcium [Mass/Vol] 9.1 mg/dL 8.5-10.1 [facility] Serum or plasma cholesterol in HDL measurement (mass/volume)Ordered By: Dr. Millan on 12-23-2022 Cholesterol in HDL [Mass/Vol] 89 mg/dL >40 [facility] Comment on above: The drugs N-Acetylcy steine and Metamizole may falsely depress this assay. Reference Range HDL <40 mg/dL Low HDL Cholesterol HDL >or= 60 mg/dL High HDL Cholesterol Serum or plasma cholesterol in VLDL measurement (mass/volume)Ordered By: Dr. Millan on 12-23-2022 Cholesterol in VLDL [Mass/Vol] 17 mg/dL 5-40 [facility] Serum or plasma creatinine m easurement (mass/volume)Ordered By: Dr. Millan on 12-23-2022 Creatinine [Mass/Vol] 0.88 mg/dL 0.55-1.02 [facility] Comment on above: The validity of the calculated GFR & GFRAA in patients over 70 years has not been determined. Clinical correlation is essential. Serum or plasma low density lipoprotein (LDL) cholesterol measurement (mass/volume)Ordered By: Dr. Millan on 12-23-2022 Cholesterol in LDL [Mass/Vol] 96 mg/dL 0-130 [facility] Serum or plasma urea nitroge n measurement (mass/volume)Ordered By: Dr. Millan on 12-23-2022 Urea nitrogen [Mass/Vol] 17 mg/dL 7-18 [facility] Thin prep Papanicolaou smear with manual screeningOrdered By: Dr. Millan on 12-23-2022 Thin prep Papanicolaou smear with manual screening 40 U/L 15-37 [facility] Thin prep Papanicolaou smear with manual screening 7 5-15 [facility] Absolute lymphocyte countOrd ered By: Dr. Marcelo on 09-29-2022 Lymphocytes Auto (Unsp spec) [#/Vol] 0.82 10*3/uL 0.83-4.51 [facility] Basophil percentageOrdered B y: Dr. Marcelo on 09-29-2022 Basophils/100 WBC (Bld) 0.6 % 0-1 [facility] Bilirubin [Mass/Vol] 0.40 mg/dL 0.20-1.00 [facility] Comment on above: For patients on eltr ombopag therapy, use of Dimension [place] TBIL is not recommended. Chloride [Moles/Vol] 103 mmol/L 98-107 [facility] Eosinophils/100 WBC (Bld) 2.5 % 0-5 [facility] Glucose [Mass/Vol] 89 mg/dL 74-106 [facility] Neutrophils (Bld) [#/Vol] 3.8 10*3/uL 2.0-7.7 [facility] Neutrophils/100 WBC (Bld) 73.2 % 47-70 [facility] Potassium [Moles/Vol] 4.1 mmol/L 3.5-5.1 [facility] Protein [Mass/Vol] 6.8 g/dL 6.4-8.2 [facility] Sodium [Moles/Vol] 137 mmol/L 136-145 [facility] WBC (Bld) [#/Vol] 5.2 10*3/uL 4.4-11.0 [facility] Blood erythrocytes count (nu mber/volume)Ordered By: Dr. Marcelo on 09-29-2022 RBC (Bld) [#/Vol] 3.71 10*6/uL 4.2-5.4 [facility] Blood hemoglobin measurement (mass/volume)Ordered By: Dr. Marcelo on 09-29-2022 Hemoglobin (Bld) [Mass/Vol] 12.0 g/dL 12.0-15.0 [facility] Blood lymphocytes/100 leukoc ytesOrdered By: Dr. Marcelo on 09-29-2022 Lymphocytes/100 WBC (Bld) 15.7 % 19-41 [facility] Blood monocytes/100 leukocyt esOrdered By: Dr. Marcelo on 09-29-2022 Monocytes/100 WBC (Bld) 7.6 % 0-10 [facility] Blood platelet mean volumeOr dered By: Dr. Marcelo on 09-29-2022 Platelet mean volume (Bld) [Entitic vol] 10.9 fL 6.2-12.0 [facility] Determination of erythrocyte mean corpuscular volume (MCV)Ordered By: Dr. Marcelo on 09-29-2022 MCV (RBC) [Entitic vol] 99.2 fL 81-99 [facility] Hematocrit Auto (Bld) [Volum e fraction]Ordered By: Dr. Marcelo on 09-29-2022 Hematocrit (Bld) [Volume fraction] 36.8 % 37-47 [facility] Laboratory - Chemistry and C hemistry - challengeOrdered By: Dr. Marcelo on 09-29-2022 ALP [Catalytic activity/Vol] 39 U/L 45-117 [facility] ALT [Catalytic activity/Vol] 43 U/L 13-56 [facility] CO2 [Moles/Vol] 28.0 mmol/L 21.0-32.0 [facility] Globulin (S) [Mass/Vol] 3.2 g/dL 2.2-4.2 [facility] Urea nitrogen/Creatinine [Mass ratio] 25.2 mg/mg 10-20 [facility] Laboratory - Hematology and Cell countsOrdered By: Dr. Marcelo on 09-29-2022 Erythrocyte distribution width (RBC) [Entitic vol] 48.5 fL 35.1-43.9 [facility] Erythrocyte distribution width (RBC) [Ratio] 13.5 % 11.6-14.6 [facility] Immature granulocytes/100 WBC (Bld) 0.400 % 0.0-0.9 [facility] Comment on above: IG% - Immature Granu locytes (promyelocytes, myelocytes and metamyelocytes) > 1% indicates that a LEFT SHIFT is Present. MCH (RBC) [Entitic mass] 32.3 pg 27.0-32.0 [facility] Nucleated RBC/100 WBC (Bld) [Ratio] 0 % 0-5 [facility] MCHC Auto (RBC) [Mass/Vol]Or dered By: Dr. Marcelo on 09-29-2022 MCHC (RBC) [Mass/Vol] 32.6 g/dL 32-36 [facility] No Panel InformationOrdered By: Dr. Marcelo on 09-29-2022 Estimated GFR (MDRD) Amer 73 mL/min >60 [facility] Comment on above: GFR Calc Estimated GFR (MDRD) Non-Af Amer 60 mL/min >60 [facility] Comment on above: Non- GFR Calc Platelets bldOrdered By: Dr. Marcelo on 09-29-2022 Platelets (Bld) [#/Vol] 190 10*3/uL 150-450 [facility] Serum or plasma albumin koki urement (mass/volume)Ordered By: Dr. Marcelo on 09-29-2022 Albumin [Mass/Vol] 3.6 g/dL 3.2-5.0 [facility] Serum or plasma albumin/glob ulin mass ratioOrdered By: Dr. Marcelo on 09-29-2022 Albumin/Globulin [Mass ratio] 1.1 {ratio} 0.9-2.4 [facility] Serum or plasma calcium koki urement (mass/volume)Ordered By: Dr. Marcelo on 09-29-2022 Calcium [Mass/Vol] 9.0 mg/dL 8.5-10.1 [facility] Serum or plasma creatinine m easurement (mass/volume)Ordered By: Dr. Marcelo on 09-29-2022 Creatinine [Mass/Vol] 0.95 mg/dL 0.55-1.02 [facility] Comment on above: The validity of the calculated GFR & GFRAA in patients over 70 years has not been determined. Clinical correlation is essential. Serum or plasma urea nitroge n measurement (mass/volume)Ordered By: Dr. Marcelo on 09-29-2022 Urea nitrogen [Mass/Vol] 24 mg/dL 7-18 [facility] Thin prep Papanicolaou smear with manual screeningOrdered By: Dr. Marcelo on 09-29-2022 Thin prep Papanicolaou smear with manual screening 34 U/L 15-37 [facility] Thin prep Papanicolaou smear with manual screening 6 5-15 [facility] Absolute lymphocyte countOrd ered By: Jyoti Hazel on 09-05-2022 Lymphocytes Auto (Unsp spec) [#/Vol] 1.15 10*3/uL 0.83-4.51 [facility] Basophil percentageOrdered B y: Jyoti Hazel on 09-05-2022 Basophils/100 WBC (Bld) 0.3 % 0-1 [facility] Chloride [Moles/Vol] 103 mmol/L 98-107 [facility] Eosinophils/100 WBC (Bld) 1.8 % 0-5 [facility] Glucose [Mass/Vol] 126 mg/dL 74-106 [facility] Comment on above: Fasting Glucose resu lt greater than or equal to 126 mg/dL suggests DIABETES MELLITUS per A.D.A. criteria. Neutrophils (Bld) [#/Vol] 4.5 10*3/uL 2.0-7.7 [facility] Neutrophils/100 WBC (Bld) 71.6 % 47-70 [facility] Potassium [Moles/Vol] 3.6 mmol/L 3.5-5.1 [facility] Sodium [Moles/Vol] 136 mmol/L 136-145 [facility] WBC (Bld) [#/Vol] 6.3 10*3/uL 4.4-11.0 [facility] Blood erythrocytes count (nu mber/volume)Ordered By: Jyoti Hazel on 09-05-2022 RBC (Bld) [#/Vol] 3.75 10*6/uL 4.2-5.4 [facility] Blood hemoglobin measurement (mass/volume)Ordered By: Jyoti Hazel on 09-05-2022 Hemoglobin (Bld) [Mass/Vol] 12.2 g/dL 12.0-15.0 [facility] Blood lymphocytes/100 leukoc ytesOrdered By: Jyoti Hazel on 09-05-2022 Lymphocytes/100 WBC (Bld) 18.3 % 19-41 [facility] Blood monocytes/100 leukocyt esOrdered By: Jyoti Hazel on 09-05-2022 Monocytes/100 WBC (Bld) 7.8 % 0-10 [facility] Blood platelet mean volumeOr dered By: Jyoti Hazel on 09-05-2022 Platelet mean volume (Bld) [Entitic vol] 10.7 fL 6.2-12.0 [facility] Determination of erythrocyte mean corpuscular volume (MCV)Ordered By: Jyoti Hazel on 09-05-2022 MCV (RBC) [Entitic vol] 96.8 fL 81-99 [facility] Hematocrit Auto (Bld) [Volum e fraction]Ordered By: Jyoti Hazel on 09-05-2022 Hematocrit (Bld) [Volume fraction] 36.3 % 37-47 [facility] Laboratory - Chemistry and C hemistry - challengeOrdered By: Jyoti Hazle on 09-05-2022 CO2 [Moles/Vol] 27.0 mmol/L 21.0-32.0 [facility] Urea nitrogen/Creatinine [Mass ratio] 31.3 mg/mg 10-20 [facility] Laboratory - Hematology and Cell countsOrdered By: Jyoti Hazel on 09-05-2022 Erythrocyte distribution width (RBC) [Entitic vol] 47.5 fL 35.1-43.9 [facility] Erythrocyte distribution width (RBC) [Ratio] 13.3 % 11.6-14.6 [facility] Immature granulocytes/100 WBC (Bld) 0.200 % 0.0-0.9 [facility] Comment on above: IG% - Immature Granu locytes (promyelocytes, myelocytes and metamyelocytes) > 1% indicates that a LEFT SHIFT is Present. MCH (RBC) [Entitic mass] 32.5 pg 27.0-32.0 [facility] Nucleated RBC/100 WBC (Bld) [Ratio] 0 % 0-5 [facility] MCHC Auto (RBC) [Mass/Vol]Or dered By: Jyoti Hazel on 09-05-2022 MCHC (RBC) [Mass/Vol] 33.6 g/dL 32-36 [facility] No Panel InformationOrdered By: Jyoti Hazel on 09-05-2022 Estimated Creatinine Clearance Calc 44.10 ml/min [facility] Estimated GFR (MDRD) Amer 94 mL/min >60 [facility] Comment on above: GFR Calc Estimated GFR (MDRD) Non-Af Amer 78 mL/min >60 [facility] Comment on above: Non- GFR Calc Platelets bldOrdered By: Digna Hazel on 09-05-2022 Platelets (Bld) [#/Vol] 198 10*3/uL 150-450 [facility] Serum or plasma calcium koki urement (mass/volume)Ordered By: Jyoti Hazel on 09-05-2022 Calcium [Mass/Vol] 8.8 mg/dL 8.5-10.1 [facility] Serum or plasma creatinine m easurement (mass/volume)Ordered By: Jyoti Hazel on 09-05-2022 Creatinine [Mass/Vol] 0.77 mg/dL 0.55-1.02 [facility] Comment on above: The validity of the calculated GFR & GFRAA in patients over 70 years has not been determined. Clinical correlation is essential. Serum or plasma urea nitroge n measurement (mass/volume)Ordered By: Jyoti Hazel on 09-05-2022 Urea nitrogen [Mass/Vol] 24 mg/dL 7-18 [facility] Thin prep Papanicolaou smear with manual screeningOrdered By: Jyoti Hazel on 09-05-2022 Thin prep Papanicolaou smear with manual screening 6 5-15 [facility] Office Visit (Cardiology)on 08-26-2022 Follow-up visit Orders Pulmonary hypertension IO EKG Electrocardiogram- 12 Lead; Status:Complete; Done: 26Aug2022 11:03AM Chief Complaint Pulm HTN History of Present [id number] female with a medical history of hyperlipidemia, [...] photopsia in visual field (has been seeing stock roller) Active Problems Problems Acute lower UTI (599.0) [...] History Problems History of bone density study () (Z92.89) 01/03/2019 History of mammogram () (Z92.89) 01/03/2019 Current Meds Medication NameInstruction Aspirin [...] Vital Signs Recorded: 26Aug2022 11:21AM Heart Rate56 [id number] Foevvfokc99 Height5 ft 6 in Cljfvk192 lb 2 oz BMI Ekfinsdcqr72.78 kg/m2 BSA Calculated1.72 Tobacco Useb) No Falls Screening (Age 18+)b) One or more falls in the last year O2 [id number] Physical Exam General: AANDOx3 HEENT: NC/AT; EOMI; PERRLA, external ear is normal Neck: supple; no JVD Chest: CTAB; no wheezing CVS: S1S2 normal, no murmurs Abdomen: Soft, NT/ND, no organomegaly Extremities: no cl (more content not included)... Normal [employer] Tobacco Screening.on 022 Fall risk assessment b) One or more fall s in the last year [employer] Work Phone: Tobacco use status CP b) No [employer] Work Phone: Established Visit (Gastroent erology)on 08-12-2022 [...] movement. She underwent good quality colonoscopy in 2018 with no abnormal findings. She is having [...] TabletTAKE 1 TABLET TWICE DAILY. Multi-Vitamins TABS Aquaporin Oral CapsuleUSE DIRECTED. Plaquenil 200 MG Oral TabletTake 1 tablet twice daily predniSONE 10 MG Oral TabletTAKE 1 TABLET Daily PRN FLARES Vitamin B-6 100 MG Oral Tablet Vitamin E 400 UNIT Oral Tablet Vitals Vital Signs Recorded: 12Aug2022 10:07AM [id number] Bypwkhcxr49 Height5 ft 6 in Beidzf742 lb 6 oz BMI Khpvcfevch40.82 kg/m2 BSA Calculated1.73 Physical Exam Constitutional General appearance: In no acute distress . Eyes Anicteric Sclerae . Pulmonary Auscultation of lungs: Clear. Cardiovascular Auscultation of heart: RRR without murmur. Examination of extremities for edema: Normal. Abdomen Soft, non-tender. Bowel sounds normal. No hepatomegaly or splenomegaly. Signatures Electronicall (more content not included)... Normal Footnote Established Visit (Gastroent erology)on 05-13-2022 Established Visit [...] hasn?t been taking th IBguard as much. Paolotent [...] 01/03/2019 History of mammogram (V1.) (Z92.89) 01/03/2019 Surgical History Problems History of [...] TabletTAKE 1 TABLET TWICE DAILY. Multi-Vitamins TABS [facility] Oral CapsuleUSE DIRECTED. Plaquenil 200 MG Oral TabletTake 1 tablet twice daily predniSONE 10 MG Oral (more content not included)... Normal Footnote Absolute lymphocyte counton 03-31-2022 Lymphocytes Auto (Unsp spec) [#/Vol] 0.87 10*3/uL 0.83-4.51 [facility] Work Phone: Basophil percentageon 2021 Basophils/100 WBC (Bld) 0.7 % 0-1 [facility] Work Phone: Bilirubin [Mass/Vol] 0.40 mg/dL 0.20-1.00 [facility] Work Phone: Comment on above: For patients on eltr ombopag therapy, use of Dimension [place] TBIL is not recommended. Chloride [Moles/Vol] 105 mmol/L 98-107 [facility] Work Phone: Eosinophils/100 WBC (Bld) 4.4 % 0-5 [facility] Work Phone: Glucose [Mass/Vol] 101 mg/dL 74-106 [facility] Work Phone: Comment on above: Fasting Glucose resu lt from 100 to 125 mg/dL suggests IMPAIRED HOMEOSTASIS per A.D.A. criteria. Neutrophils (Bld) [#/Vol] 2.8 10*3/uL 2.0-7.7 [facility] Work Phone: Neutrophils/100 WBC (Bld) 65.8 % 47-70 [facility] Work Phone: Potassium [Moles/Vol] 3.8 mmol/L 3.5-5.1 [facility] Work Phone: Protein [Mass/Vol] 7.3 g/dL 6.4-8.2 [facility] Work Phone: Sodium [Moles/Vol] 139 mmol/L 136-145 [facility] Work Phone: [phone] WBC (Bld) [#/Vol] 4.3 10*3/uL 4.4-11.0 [facility] Work Phone: Blood erythrocytes count (nu mber/volume)on 03-31-2022 RBC (Bld) [#/Vol] 3.86 10*6/uL 4.2-5.4 [facility] Work Phone: Blood hemoglobin measurement (mass/volume)on 03-31-2022 Hemoglobin (Bld) [Mass/Vol] 12.4 g/dL 12.0-15.0 [facility] Work Phone: Blood lymphocytes/100 leukoc yteson 03-31-2022 Lymphocytes/100 WBC (Bld) 20.1 % 19-41 [facility] Work Phone: Blood monocytes/100 leukocyt eson 03-31-2022 Monocytes/100 WBC (Bld) 8.8 % 0-10 [facility] Work Phone: Blood platelet mean volumeon 03-31-2022 Platelet mean volume (Bld) [Entitic vol] 10.9 fL 6.2-12.0 [facility] Work Phone: Determination of erythrocyte mean corpuscular volume (MCV)on 03-31-2022 MCV (RBC) [Entitic vol] 98.2 fL 81-99 [facility] Work Phone: Hematocrit Auto (Bld) [Volum e fraction]on 03-31-2022 Hematocrit (Bld) [Volume fraction] 37.9 % 37-47 [facility] Work Phone: Laboratory - Chemistry and C hemistry - challengeon 03-31-2022 ALP [Catalytic activity/Vol] 41 U/L 45-117 [facility] Work Phone: ALT [Catalytic activity/Vol] 42 U/L 13-56 [facility] Work Phone: CO2 [Moles/Vol] 30.0 mmol/L 21.0-32.0 [facility] Work Phone: Globulin (S) [Mass/Vol] 3.5 g/dL 2.2-4.2 [facility] Work Phone: Urea nitrogen/Creatinine [Mass ratio] 25.0 mg/mg 10-20 [facility] Work Phone: Laboratory - Hematology and Cell countson 03-31-2022 Erythrocyte distribution width (RBC) [Entitic vol] 49.6 fL 35.1-43.9 [facility] Work Phone: Erythrocyte distribution width (RBC) [Ratio] 13.8 % 11.6-14.6 [facility] Work Phone: Immature granulocytes/100 WBC (Bld) 0.200 % 0.0-0.9 [facility] Work Phone: Comment on above: IG% - Immature Granu locytes (promyelocytes, myelocytes and metamyelocytes) > 1% indicates that a LEFT SHIFT is Present. MCH (RBC) [Entitic mass] 32.1 pg 27.0-32.0 [facility] Work Phone: Nucleated RBC/100 WBC (Bld) [Ratio] 0 % 0-5 [facility] Work Phone: MCHC Auto (RBC) [Mass/Vol]on 03-31-2022 MCHC (RBC) [Mass/Vol] 32.7 g/dL 32-36 [facility] Work Phone: No Panel Informationon 03-31 Estimated GFR (MDRD) Amer 66 mL/min >60 [facility] Work Phone: Comment on above: GFR Calc Estimated GFR (MDRD) Non-Af Amer 55 mL/min >60 [facility] Work Phone: Comment on above: Non- GFR Calc Platelets bldon 03-31-2022 Platelets (Bld) [#/Vol] 183 10*3/uL 150-450 [facility] Work Phone: Serum or plasma albumin koki urement (mass/volume)on 03-31-2022 Albumin [Mass/Vol] 3.8 g/dL 3.2-5.0 [facility] Work Phone: Serum or plasma albumin/glob ulin mass ratioon 03-31-2022 Albumin/Globulin [Mass ratio] 1.1 {ratio} 0.9-2.4 [facility] Work Phone: Serum or plasma calcium koki urement (mass/volume)on 03-31-2022 Calcium [Mass/Vol] 9.4 mg/dL 8.5-10.1 [facility] Work Phone: Serum or plasma creatinine m easurement (mass/volume)on 03-31-2022 Creatinine [Mass/Vol] 1.04 mg/dL 0.55-1.02 [facility] Work Phone: Comment on above: The validity of the calculated GFR & GFRAA in patients over 70 years has not been determined. Clinical correlation is essential. Serum or plasma urea nitroge n measurement (mass/volume)on 03-31-2022 Urea nitrogen [Mass/Vol] 26 mg/dL 7-18 [facility] Work Phone: Thin prep Papanicolaou smear with manual screeningon 03-31-2022 Thin prep Papanicolaou smear with manual screening 35 U/L 15-37 [facility] Work Phone: Thin prep Papanicolaou smear with manual screening 4 5-15 [facility] Work Phone: Mamm - Screening Mammogram w / Tomosynthesison 02-17-2022 MG Breast Screening Normal -Hi [employer] [facility] Work Phone: Initial Visit (Gastroenterol ogjennifer)on 02-11-2022 Initial Visit (Gastroenterology) Diagnoses/Problems Assessed Irritable [...] a lot better. Adult Risk ScreeningAdult Risk Screening_[facility]: Initial Fall Risk Screening: KIM has not [...] TabletTAKE 1 TABLET TWICE DAILY. Multi-Vitamins TABS Aquaporin Oral CapsuleUSE DIRECTED. Plaquenil 200 MG Oral TabletTake 1 tablet twice daily predniSONE 10 MG Oral TabletTAKE 1 TABLET Daily PRN FLARES Vitamin B-6 100 MG Oral Tablet Vitamin E 400 UNIT Oral Tablet Vitals Vital Signs Recorded: [id number] 02:14PM Tisdhrqu608 Jnqfrncky33 Height5 ft 6 in Nudgza895 lb BMI Yvnzlqyluk91.24 kg/m2 BSA Calculated1.74 Physical Exam Kavitha is [...] denies any rectal bleeding. Recent labs from [facility] (more content not included)... Normal [facility] Absolute lymphocyte counton 12-30-2021 Lymphocytes Auto (Unsp spec) [#/Vol] 0.83 10*3/uL 0.83-4.51 [facility] Work Phone: Basophil percentageon 2021 Basophils/100 WBC (Bld) 0.5 % 0-1 [facility] Work Phone: Bilirubin [Mass/Vol] 0.50 mg/dL 0.20-1.00 [facility] Work Phone: Comment on above: For patients on eltr ombopag therapy, use of Dimension [place] TBIL is not recommended. Chloride [Moles/Vol] 101 mmol/L 98-107 [facility] Work Phone: Cholesterol [Mass/Vol] 218 mg/dL <200 [facility] Work Phone: Comment on above: <200 mg/dL Desirable 200-240 mg/dL Borderline >240 mg/dL High Risk Eosinophils/100 WBC (Bld) 3.5 % 0-5 [facility] Work Phone: Glucose [Mass/Vol] 98 mg/dL 74-106 [facility] Work Phone: Neutrophils (Bld) [#/Vol] 4.1 10*3/uL 2.0-7.7 [facility] Work Phone: Neutrophils/100 WBC (Bld) 72.8 % 47-70 [facility] Work Phone: Potassium [Moles/Vol] 4.0 mmol/L 3.5-5.1 [facility] Work Phone: Protein [Mass/Vol] 7.7 g/dL 6.4-8.2 [facility] Work Phone: Sodium [Moles/Vol] 134 mmol/L 136-145 [facility] Work Phone: Triglyceride [Mass/Vol] 71 mg/dL <199 [facility] Work Phone: Comment on above: The drugs N-Acetylcy steine and Metamizole may falsely depress this assay.Serum Triglycerides Reference Interval Normal <150 mg/dL Borderline high 150 - 199 mg/dL High 200 - 499 mg/dL Very High > or = 500 mg/dL WBC (Bld) [#/Vol] 5.7 10*3/uL 4.4-11.0 [facility] Work Phone: Blood erythrocytes count (nu mber/volume)on 12-30-2021 RBC (Bld) [#/Vol] 4.07 10*6/uL 4.2-5.4 [facility] Work Phone: Blood hemoglobin measurement (mass/volume)on 12-30-2021 Hemoglobin (Bld) [Mass/Vol] 13.2 g/dL 12.0-15.0 [facility] Work Phone: Blood lymphocytes/100 leukoc yteson 12-30-2021 Lymphocytes/100 WBC (Bld) 14.7 % 19-41 [facility] Work Phone: Blood monocytes/100 leukocyt eson 12-30-2021 Monocytes/100 WBC (Bld) 8.3 % 0-10 [facility] Work Phone: Blood platelet mean volumeon 12-30-2021 Platelet mean volume (Bld) [Entitic vol] 10.6 fL 6.2-12.0 [facility] Work Phone: Determination of erythrocyte mean corpuscular volume (MCV)on 12-30-2021 MCV (RBC) [Entitic vol] 98.0 fL 81-99 [facility] Work Phone: [phone] Hematocrit Auto (Bld) [Volum e fraction]on 12-30-2021 Hematocrit (Bld) [Volume fraction] 39.9 % 37-47 [facility] Work Phone: Laboratory - Chemistry and C hemistry - challengeon 12-30-2021 ALP [Catalytic activity/Vol] 45 U/L 45-117 [facility] Work Phone: ALT [Catalytic activity/Vol] 40 U/L 13-56 [facility] Work Phone: CO2 [Moles/Vol] 31.0 mmol/L 21.0-32.0 [facility] Work Phone: [phone] Cobalamin (Vitamin B12) [Mass/Vol] 679 pg/mL 211-911 [facility] Work Phone: [phone] Globulin (S) [Mass/Vol] 3.6 g/dL 2.2-4.2 [facility] Work Phone: Urea nitrogen/Creatinine [Mass ratio] 22.1 mg/mg 10-20 [facility] Work Phone: Laboratory - Hematology and Cell countson 12-30-2021 Erythrocyte distribution width (RBC) [Entitic vol] 47.5 fL 35.1-43.9 [facility] Work Phone: Erythrocyte distribution width (RBC) [Ratio] 13.3 % 11.6-14.6 [facility] Work Phone: Immature granulocytes/100 WBC (Bld) 0.200 % 0.0-0.9 [facility] Work Phone: [phone] Comment on above: IG% - Immature Granu locytes (promyelocytes, myelocytes and metamyelocytes) > 1% indicates that a LEFT SHIFT is Present. MCH (RBC) [Entitic mass] 32.4 pg 27.0-32.0 [facility] Work Phone: [phone] Nucleated RBC/100 WBC (Bld) [Ratio] 0 % 0-5 [facility] Work Phone: MCHC Auto (RBC) [Mass/Vol]on 12-30-2021 MCHC (RBC) [Mass/Vol] 33.1 g/dL 32-36 [facility] Work Phone: No Panel Informationon 12-30 Estimated GFR (MDRD) Amer 83 mL/min >60 [facility] Work Phone: Comment on above: GFR Calc Estimated GFR (MDRD) Non-Af Amer 68 mL/min >60 [facility] Work Phone: Comment on above: Non- GFR Calc Platelets bldon 12-30-2021 Platelets (Bld) [#/Vol] 203 10*3/uL 150-450 [facility] Work Phone: Serum or plasma albumin koki urement (mass/volume)on 12-30-2021 Albumin [Mass/Vol] 4.1 g/dL 3.2-5.0 [facility] Work Phone: Serum or plasma albumin/glob ulin mass ratioon 12-30-2021 Albumin/Globulin [Mass ratio] 1.1 {ratio} 0.9-2.4 [facility] Work Phone: Serum or plasma calcium koki urement (mass/volume)on 12-30-2021 Calcium [Mass/Vol] 9.2 mg/dL 8.5-10.1 [facility] Work Phone: Serum or plasma cholesterol in HDL measurement (mass/volume)on 12-30-2021 Cholesterol in HDL [Mass/Vol] 96 mg/dL >40 [facility] Work Phone: Comment on above: The drugs N-Acetylcy steine and Metamizole may falsely depress this assay. Reference Range HDL <40 mg/dL Low HDL Cholesterol HDL >or= 60 mg/dL High HDL Cholesterol Serum or plasma cholesterol in VLDL measurement (mass/volume)on 12-30-2021 Cholesterol in VLDL [Mass/Vol] 14 mg/dL 5-40 [facility] Work Phone: Serum or plasma creatinine m easurement (mass/volume)on 12-30-2021 Creatinine [Mass/Vol] 0.86 mg/dL 0.55-1.02 [facility] Work Phone: Comment on above: The validity of the calculated GFR & GFRAA in patients over 70 years has not been determined. Clinical correlation is essential. Serum or plasma low density lipoprotein (LDL) cholesterol measurement (mass/volume)on 12-30-2021 Cholesterol in LDL [Mass/Vol] 108 mg/dL 0-130 [facility] Work Phone: Serum or plasma urea nitroge n measurement (mass/volume)on 12-30-2021 Urea nitrogen [Mass/Vol] 19 mg/dL 7-18 [facility] Work Phone: Thin prep Papanicolaou smear with manual screeningon 12-30-2021 Thin prep Papanicolaou smear with manual screening 33 U/L 15-37 [facility] Work Phone: Thin prep Papanicolaou smear with manual screening 2 5-15 [facility] Work Phone: Medicare Annual Wellness Vis iton 12-09-2021 Medicare [...] of breath, dizziness, lightheadedness, or edema Sees Mold Injector on a regular basis Seen Cardiology, started [...] Screening.on 022 Adult depression screening assessment Yes -[employer] [facility] Work Phone: Adult depression screening assessment No [place] [facility] Work Phone: Fall risk assessment a) No falls within the last year [employer] [facility] Work Phone: Tobacco use status CPHS b) No [place] [facility] Work Phone: Absolute lymphocyte counton 10-14-2021 Lymphocytes Auto (Unsp spec) [#/Vol] 0.94 10*3/uL 0.83-4.51 [facility] Work Phone: [phone] Basophil percentageon 2021 Basophils/100 WBC (Bld) 0.4 % 0-1 [facility] Work Phone: [phone] Bilirubin [Mass/Vol] 0.40 mg/dL 0.20-1.00 [facility] Work Phone: Comment on above: For patients on eltr ombopag therapy, use of Dimension [place] TBIL is not recommended. Chloride [Moles/Vol] 103 mmol/L 98-107 [facility] Work Phone: Eosinophils/100 WBC (Bld) 4.0 % 0-5 [facility] Work Phone: Glucose [Mass/Vol] 98 mg/dL 74-106 [facility] Work Phone: Neutrophils (Bld) [#/Vol] 2.9 10*3/uL 2.0-7.7 [facility] Work Phone: Neutrophils/100 WBC (Bld) 64.8 % 47-70 [facility] Work Phone: [phone] Potassium [Moles/Vol] 4.0 mmol/L 3.5-5.1 [facility] Work Phone: [phone] Protein [Mass/Vol] 7.1 g/dL 6.4-8.2 [facility] Work Phone: Sodium [Moles/Vol] 137 mmol/L 136-145 [facility]: WBC (Bld) [#/Vol] 4.5 10*3/uL 4.4-11.0 [facility] Work Phone: Blood erythrocytes count (nu mber/volume)on 10-14-2021 RBC (Bld) [#/Vol] 3.67 10*6/uL 4.2-5.4 [facility]: Blood hemoglobin measurement (mass/volume)on 10-14-2021 Hemoglobin (Bld) [Mass/Vol] 11.7 g/dL 12.0-15.0 [facility] Work Phone: Blood lymphocytes/100 leukoc yteson 10-14-2021 Lymphocytes/100 WBC (Bld) 21.0 % 19-41 [facility] Work Phone: Blood monocytes/100 leukocyt eson 10-14-2021 Monocytes/100 WBC (Bld) 9.6 % 0-10 [facility] Work Phone: Blood platelet mean volumeon 10-14-2021 Platelet mean volume (Bld) [Entitic vol] 10.2 fL 6.2-12.0 [facility] Work Phone: Determination of erythrocyte mean corpuscular volume (MCV)on 10-14-2021 MCV (RBC) [Entitic vol] 97.3 fL 81-99 [facility] Work Phone: Hematocrit Auto (Bld) [Volum e fraction]on 10-14-2021 Hematocrit (Bld) [Volume fraction] 35.7 % 37-47 [facility] Work Phone: Laboratory - Chemistry and C hemistry - challengeon 10-14-2021 ALP [Catalytic activity/Vol] 42 U/L 45-117 [facility] Work Phone: ALT [Catalytic activity/Vol] 44 U/L 13-56 [facility] Work Phone: CO2 [Moles/Vol] 31.0 mmol/L 21.0-32.0 [facility] Work Phone: Globulin (S) [Mass/Vol] 3.4 g/dL 2.2-4.2 [facility] Work Phone: Urea nitrogen/Creatinine [Mass ratio] 26.4 mg/mg 10-20 [facility] Work Phone: Laboratory - Hematology and Cell countson 10-14-2021 Erythrocyte distribution width (RBC) [Entitic vol] 47.8 fL 35.1-43.9 [facility] Work Phone: Erythrocyte distribution width (RBC) [Ratio] 13.4 % 11.6-14.6 [facility] Work Phone: Immature granulocytes/100 WBC (Bld) 0.200 % 0.0-0.9 [facility] Work Phone: Comment on above: IG% - Immature Granu locytes (promyelocytes, myelocytes and metamyelocytes) > 1% indicates that a LEFT SHIFT is Present. MCH (RBC) [Entitic mass] 31.9 pg 27.0-32.0 [facility] Work Phone: Nucleated RBC/100 WBC (Bld) [Ratio] 0 % 0-5 [facility] Work Phone: MCHC Auto (RBC) [Mass/Vol]on 10-14-2021 MCHC (RBC) [Mass/Vol] 32.8 g/dL 32-36 [facility] Work Phone: No Panel Informationon 10-14 Estimated GFR (MDRD) Amer 90 mL/min >60 [facility] Work Phone: Comment on above: GFR Calc Estimated GFR (MDRD) Non-Af Amer 75 mL/min >60 [facility] Work Phone: Comment on above: Non- GFR Calc Platelets bldon 10-14-2021 Platelets (Bld) [#/Vol] 175 10*3/uL 150-450 [facility] Work Phone: Serum or plasma albumin koki urement (mass/volume)on 10-14-2021 Albumin [Mass/Vol] 3.7 g/dL 3.2-5.0 [facility] Work Phone: Serum or plasma albumin/glob ulin mass ratioon 10-14-2021 Albumin/Globulin [Mass ratio] 1.1 {ratio} 0.9-2.4 [facility] Work Phone: Serum or plasma calcium koki urement (mass/volume)on 10-14-2021 Calcium [Mass/Vol] 8.9 mg/dL 8.5-10.1 [facility] Work Phone: Serum or plasma creatinine m easurement (mass/volume)on 10-14-2021 Creatinine [Mass/Vol] 0.79 mg/dL 0.55-1.02 [facility] Work Phone: Comment on above: The validity of the calculated GFR & GFRAA in patients over 70 years has not been determined. Clinical correlation is essential. Serum or plasma urea nitroge n measurement (mass/volume)on 10-14-2021 Urea nitrogen [Mass/Vol] 21 mg/dL 7-18 [facility] Work Phone: Thin prep Papanicolaou smear with manual screeningon 10-14-2021 Thin prep Papanicolaou smear with manual screening 33 U/L 15-37 [facility] Work Phone: Thin prep Papanicolaou smear with manual screening 3 5-15 [facility] Work Phone: CORONAVIRUS PCR - [facility] 08-18-2021 SARS-CoV-2 (COVID-19) RNA KATE+probe Ql (Unsp spec) Positive Critically abnormal NORMAL: NEGATIVE [facility] Comment on above: Result Comment: { CA LLED TO infection control { READ BACK BY Performed By: #### [id number] #### [facility],[address] [place] [id number] SEND TO ? YES Normal [facility] Comment on above: Result Comment: ANA ZAMORA FAXED TO INFECTION CONTROL. SARS-CoV-2 THIS TEST IS BEING USED UNDER THE FDA EUA PROCEDURE. THIS ASSAY HAS BEEN VALIDATED IN THE [facility] FOR USE WITH NASOPHARYNGEAL SPECIMENS IN [facility] INTERPRETIVE DATA LABORATORY TEST RESULTS SHOULD ALWAYS [...] PUBLIC HEALTH AUTHORITIES. Performed By: #### [id number] #### [facility],[address] [place] [id number] Mamm - Screening Mammogram w / Tomosynthesison 02-10-2021 MG Breast Screening Normal [facility] [employer] Work Phone: Xray Bone Density, Dexa 1 or More Siteson 02-10-2021 Xray Bone Density, Dexa 1 or More Sites Normal [facility] [employer] Work Phone: Radiologyon 01-27-2021 US.doppler Carotid [facility] Work Phone: Cult, Urineon 12-14-2019 Bacteria identified Cx Nom (U) PATIENT: KIM ROCHA LOCATION: [facility]#: [id number] : 45 AGE: SEX: F ORDERED BY: WICHO DESAI: URINE COLLECTED: 12/14/19 10:22ANTIBIOTICS AT [facility].: RECEIVED : 12/14/19 23:15SITE: Clean Catch/Voided R E S U L T S URINE CULTURE,BACTERIAL FINAL 12/16/19 08:08 NO SIGNIFICANT GROWTH. [place] [facility] Work Phone: Comment on above: Ordering Provider: Romina DESAI [id number] Complete Blood Count + Diffe rentialon 12-05-2019 Basophils (Bld) [#/Vol] 0.00 {x10E9/L} See Below [facility] Work Phone: Comment on above: Reference Range: 0.0 0 - 0.10 Basophils/100 WBC (Bld) 1.1 % 0.0 - 2.0 [facility] Work Phone: Eosinophils (Bld) [#/Vol] 0.10 {x10E9/L} See Below [facility] Work Phone: Comment on above: Reference Range: 0.0 0 - 0.40 Eosinophils/100 WBC (Bld) 3.6 % 0.0 - 6.0 [facility] Work Phone: Erythrocyte distribution width (RBC) [Ratio] 15.0 % above high threshold See Below [facility] Work Phone: Comment on above: Reference Range: 11. 5 - 14.5 Hematocrit (Bld) [Volume fraction] 39.4 % See Below [facility] Work Phone: Comment on above: Reference Range: 36. 0 - 46.0 Hemoglobin (Bld) [Mass/Vol] 13.3 g/dL See Below [facility] [facility] Work Phone: Comment on above: Reference Range: 12. 0 - 16.0 Lymphocytes (Bld) [#/Vol] 1.00 {x10E9/L} See Below [facility] Work Phone: Comment on above: Reference Range: 0.8 0 - 3.00 Lymphocytes/100 WBC (Bld) 26.3 % See Below [facility] Work Phone: Comment on above: Reference Range: 13. 0 - 44.0 MCHC (RBC) [Mass/Vol] 33.8 g/dL See Below [facility] Work Phone: Comment on above: Reference Range: 32. 0 - 36.0 MCV (RBC) [Entitic vol] 96 fL 80 - 100 [facility] Work Phone: Monocytes (Bld) [#/Vol] 0.30 {x10E9/L} See Below [facility] Work Phone: Comment on above: Reference Range: 0.0 5 - 0.80 Monocytes/100 WBC (Bld) 8.5 % 2.0 - 10.0 [facility] Work Phone: Neutrophils (Bld) [#/Vol] 2.40 {x10E9/L} See Below [facility] Work Phone: Comment on above: Reference Range: 1.6 0 - 5.50 Percent differential counts (%) should be interpreted in the context of the absolute cell counts (cells/L). Neutrophils/100 WBC (Bld) 60.5 % See Below [facility] [facility] Work Phone: Comment on above: Reference Range: 40. 0 - 80.0 Platelets (Bld) [#/Vol] 205 {x10E9/L} 150 - 450 [facility] Work Phone: RBC (Bld) [#/Vol] 4.12 {x10E12/L} See Below [place] [facility] Work Phone: Comment on above: Reference Range: 4.0 0 - 5.20 WBC (Bld) [#/Vol] 3.9 {x10E9/L} below low threshold 4.4 - 11.3 [place] [facility] Work Phone: WBC (Bld) [#/Vol] 0.1 {/100_WBC} - Xention [facility] Work Phone: Hemoglobin A1Con 12-05-2019 HbA1c (Bld) [Mass fraction] 114 {MG/DL} [place] [facility] Work Phone: HbA1c (Bld) [Mass fraction] 5.6 % [place] [facility] Work Phone: Comment on above: Diagnosis of Diabete s-Adults Non-Diabetic: < or = 5.6% Increased risk for developing diabetes: 5.7-6.4% Diagnostic of diabetes: > or = 6.5%. Monitoring of Diabetes Age (y) Therapeutic Goal (%) Adults: >18 <7.0 Pediatrics: 13-18 <7.5 7-12 <8.0 0- 6 7.5-8.5 [employer]. Diabetes Care 33(S1), Sep 2009. Metabolic Panelon 12-05-2019 ALP [Catalytic activity/Vol] 34 U/L 33 - 136 [place] [facility] Work Phone: Anion gap [Moles/Vol] 13 mmol/L 10 - 20 [employer] [facility] [employer] [facility] Work Phone: Bilirubin [Mass/Vol] 0.5 mg/dL 0.0 - 1.2 [employer] [facility] Work Phone: Calcium [Mass/Vol] 9.9 mg/dL 8.6 - 10.3 [facility] [place] [facility] Work Phone: Chloride [Moles/Vol] 103 mmol/L 98 - 107 [employer] [place] [facility] Work Phone: CO2 [Moles/Vol] 27 mmol/L 21 - 32 [facility] Work Phone: Creatinine [Mass/Vol] 0.85 mg/dL See Below [facility] Work Phone: Comment on above: Reference Range: 0.5 0 - 1.05 Glucose [Mass/Vol] 88 mg/dL 74 - 99 [facility] Work Phone: Potassium [Moles/Vol] 4.3 mmol/L 3.5 - 5.3 [facility] Work Phone: Protein [Mass/Vol] 7.3 g/dL 6.4 - 8.2 [facility] Work Phone: Sodium [Moles/Vol] 139 mmol/L 136 - 145 [facility] Work Phone: Urea nitrogen [Mass/Vol] 20 mg/dL 6 - 23 [facility] Work Phone: Otheron 12-05-2019 Albumin BCP dye [Mass/Vol] 4.3 g/dL 3.4 - 5.0 [facility] Work Phone: ALT With P-5'-P [Catalytic activity/Vol] 32 U/L 7 - 45 [facility] Work Phone: Comment on above: Patients treated wit h Sulfasalazine may generate falsely decreased results for ALT. AST With P-5'-P [Catalytic activity/Vol] 34 U/L 9 - 39 [facility] Work Phone: >60 >60 [facility] Work Phone: Comment on above: CALCULATIONS OF SEAN MATED GFR ARE PERFORMED USING THE MDRD STUDY EQUATION FOR THE IDMS-TRACEABLE CREATININE METHODS. CLIN CHEM 2007;53:766-72 TSH - Thyroid Stimulating Ho subha, Serumon 12-05-2019 TSH Qn 2.81 {mIU/L} See Below -[employer] [facility] Work Phone: Comment on above: Reference Range: 0.4 4 - 3.98 Note new pediatric reference range as of 11/29/2019. TSH testing is performed using different testing methodology at [facility] than at other [facility]. Direct result comparisons should only be made [...] mammography screening; 01/03/2019 11:05 am ACCESSION NUMBER(S): [id number] ORDERING CLINICIAN: Akanksha Millan INDICATION: Screening. COMPARISON: [...] Category 1-Negative Recommendation: Normal interval follow-up Normal [facility] BD Bone Density DEXAon 01-03 BD Bone Density DEXA Exam Date/Time: 01/03/2019 10:51 EDT Reason for Exam: SCREENING OSTEOPENIA;Osteopenia Report STUDY: BD Bone Density DEXA; 01/03/2019 10:51 am INDICATION: Osteopenia. Evaluate for osteopenia/osteoporos is, ACCESSION NUMBER(S): [id number] ORDERING CLINICIAN: Akanksha Millan FINDINGS: Standard measurements [...] by: Stephon Rendon MD Technologist: NARINDER Normal [facility] TSHon 11-29-2018 Thyrotropin Qn 3.17 mcIU/mL Normal 0.30-5.60 [facility] Comment on above: Performed By: #### [id number] #### [employer] [address] [place] [address] Vit B12on 11-29-2018 Cobalamin (Vitamin B12) mass conc 646 pg/mL Normal 180-914 [facility] Comment on above: Performed By: #### 2 [id number] #### [employer] [facility] [place] [address] C Urineon 11-17-2018 C Urine Final Report: Rare Mixed skin contaminants Normal [facility] Comment on above: Performed By: #### 2 [id number] #### [facility] [employer] Subsection [facility] [place] [address] POC Urinalysis Dip POCon POC Bilirubin Negative Normal Negative [facility] Comment on above: Performed By: #### C [id number] #### [facility] POC Subsection [address] [place] [address] POC Blood Moderate 2+ Abnormal Negative [facility] Comment on above: Performed By: #### C [id number] #### [facility] POC Subsection [address] [place] [address] POC Clarity CLEAR Normal CLEAR [facility] Comment on above: Performed By: #### C [id number] #### [facility] POC Subsection [address] [place] [address] POC Color [place] Abnormal Yellow [facility] Comment on above: Performed By: #### C [id number] #### [facility] POC Subsection [address] [place] [address] POC Glucose 250mg/dl 1+ Abnormal Negative [facility] Comment on above: Performed By: #### C [id number] #### CRSY POC Subsection [address] [place] [address] POC Ketone 5mg/dl Trace Abnormal Negative [facility] Comment on above: Performed By: #### C [id number] #### CRYS POC Subsection [facility] [place] [address] POC Leukocyte Large 3+ Abnormal Negative [facility] Comment on above: Performed By: #### C [id number] #### [facility] POC Subsection [address] [place] [address] POC Nitrite Positive Abnormal Negative [facility] Comment on above: Performed By: #### C [id number] #### [facility] POC Subsection [address] [place] [address] POC pH 5.0 mg/dL Normal 5.0-8.0 [facility] Comment on above: Performed By: #### C [id number] #### CRYS POC Subsection [address] [place] [address] POC Specific [place] 1.020 mg/dL Normal 1.005-1.035 [facility] Comment on above: Performed By: #### C [id number] #### CRYS POC Subsection [address] [place] [address] POC Urobilinogen 4.0 EU/dL High 0.2-1.0 [facility] Comment on above: Performed By: #### C [id number] #### CR[facility] POC Subsection [address] [place] [address] Protein mass conc (U) 100mg/dl 2+ Abnormal Negative [facility] Comment on above: Performed By: #### C [id number] #### CR[facility] POC Subsection [address] [place] [address] C Urineon 11-05-2018 C Urine Final Report: [...] >8 R SXT : <=2/38 S Normal [facility] Comment on above: Performed By: #### 2 [id number] #### [employer] Microbiology Subsection [address] [place] [address] POC Urinalysis Dip POCon POC Bilirubin Negative Normal Negative [facility] Comment on above: Performed By: #### C [id number] #### [facility] POC Subsection [address] [place] [address] POC Blood Large 3+ Abnormal Negative [facility] Comment on above: Performed By: #### C [id number] #### CRYS POC Subsection [facility] [place] [address] POC Clarity CLEAR Normal CLEAR [facility] Comment on above: Performed By: #### C [id number] #### CR[facility] POC Subsection [address] [place] [address] POC Color Yellow Normal Yellow [facility] Comment on above: Performed By: #### C [id number] #### CR[facility] POC Subsection [address] [place] [address] POC Glucose Negative Normal Negative [facility] Comment on above: Performed By: #### C [id number] #### [facility] POC Subsection [address] [place] [address] POC Ketone Negative Normal Negative [facility] Comment on above: Performed By: #### C [id number] #### [facility] POC Subsection [address] [place] [address] POC Leukocyte Small 1+ Abnormal Negative [facility] Comment on above: Performed By: #### C D:[id number] #### [facility] POC Subsection [address] [place] [address] POC Nitrite Negative Normal Negative [facility] Comment on above: Performed By: #### C [id number] #### [facility] POC Subsection [address] [place] [address] POC pH 5.5 mg/dL Normal 5.0-8.0 [facility] Comment on above: Performed By: #### C [id number] #### CR[facility] POC Subsection [address] [place] [address] POC Specific [place] 1.015 mg/dL Normal 1.005-1.035 [facility] Comment on above: Performed By: #### C [id number] #### CR[facility] POC Subsection [address] [place] [address] POC Urobilinogen 0.2 EU/dL Normal 0.2-1.0 [facility] Comment on above: Performed By: #### C [id number] #### CRYS POC Subsection [address] [place] [address] Protein mass conc (U) Negative Normal Negative [facility] Comment on above: Performed By: #### C D:[id number] #### CRYS POC Subsection [facility] [place] [address] CT Abdomen/Pelvis w/o Contra yulia 07-05-2018 CT Abdomen/Pelvis w/o Contrast Exam Date/Time: 07/05/2018 11:15 EDT Reason for Exam: 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 COMPARISON: None. ACCESSION NUMBER(S): [id number] ORDERING CLINICIAN: Akanksha Millan TECHNIQUE: Contiguous axial [...] Signed by: Stephon Rendon MD Technologist: CHAR [facility] CNOVon 09-23-2017 CNOV Office Visit ([facility]) ----KIM ROCHA ([id number]) 1945 [facility] Time Provider Piefgqdokn66/29/17 10:30 AM LILLIAN LAWRENCE (LAKESHIA) [facility] During [...] (VITAMIN E, DL, ACETATE,) 100 unit capsule [id number] Units by mouth once daily.pyridoxine, vitamin B6, [...] - GI UpsetDate Reviewed: 09/23/2017Reviewed by: Lillian (Medical Education Manager) Howard - Fully AssessedReason for Visit: Cough [...] by mouth three*Problem List As Of Date: 09/23/2017(None)Pres riptions ordered this encounter Disp Refills Start [...] Status:Closed by LILLIAN LAWRENCE CNP on 09/23/17 [facility] PROGRESSon 09-23-2017 PROGRESS HNO ID: [id number]: Lillian (Lakeshia) KaputService: (none)Author Type: Nurse PractitionerType: Progress NotesFiled: 09/23/2017 [...] agreeable to treatment plan.Lillian Lawrence CNP Normal [facility] Vital Signs Date Time Vital Sign Value Performing Clinician Facility 05-16-2025 16:27-0400 Body height 167.6 cm Akanksha Millan MD Work Phone: [facility] 05-16-2025 16:27-0400 Body mass index (BMI) [Ratio] 23.11 kg/m2 Akanksha Millan MD Work Phone: [facility] 05-16-2025 16:27-0400 Body weight 64.95 kg Akanksha Millan MD Work Phone: [facility] 05-16-2025 16:27-0400 Diastolic blood pressure 90 mm[Hg] Akanksha Millan MD Work Phone: [facility] 05-16-2025 16:27-0400 Heart rate 62 /min Akanksha Millan MD Work Phone: [facility] 05-16-2025 16:27-0400 SaO2% (BldA) [Mass fraction] 95 % Akanksha Millan MD Work Phone: [facility] 05-16-2025 16:27-0400 Systolic blood pressure 160 mm[Hg] Akanksha Millan MD Work Phone: [facility] 02-07-2025 10:08-0400 Body height 167.6 cm Rogers Bradley DO Work Phone: [facility] 02-07-2025 10:08-0400 Body mass index (BMI) [Ratio] 22.73 kg/m2 Rogers Bradley DO Work Phone: [facility] 02-07-2025 10:08-0400 Body weight 63.87 kg Rogers Bradley DO Work Phone: [facility] 02-07-2025 10:08-0400 Diastolic blood pressure 78 mm[Hg] Rogers Bradley DO Work Phone: [facility] 02-07-2025 10:08-0400 Heart rate 67 /min Rogers Bradley DO Work Phone: [facility] 02-07-2025 10:08-0400 SaO2% (BldA) [Mass fraction] 96 % Rogers Bradley DO Work Phone: [facility] 02-07-2025 10:08-0400 Systolic blood pressure 128 mm[Hg] Rogers Bradley DO Work Phone: [facility] 12-20-2024 10:07-0400 Body height 167.6 cm Akanksha Millan MD Work Phone: [facility] 12-20-2024 10:07-0400 Body mass index (BMI) [Ratio] 22.89 kg/m2 Akanksha Millan MD Work Phone: [facility] 12-20-2024 10:07-0400 Body weight 64.32 kg Akanksha Millan MD Work Phone: [facility] 12-20-2024 10:07-0400 Diastolic blood pressure 70 mm[Hg] Akanksha Millan MD Work Phone: [facility] 12-20-2024 10:07-0400 Heart rate 62 /min Akanksha Millan MD Work Phone: [facility] 12-20-2024 10:07-0400 SaO2% (BldA) [Mass fraction] 98 % Akanksha Millan MD Work Phone: [facility] 12-20-2024 10:07-0400 Systolic blood pressure 120 mm[Hg] Akanksha Millan MD Work Phone: [facility] 10-26-2024 10:19-0500 Body height 167.6 cm Aileen Shoemaker DO Work Phone: [facility] 10-26-2024 10:19-0500 Body mass index (BMI) [Ratio] 23.29 kg/m2 Aileen Dunn Loring DO Work Phone: [facility] 10-26-2024 10:19-0500 Body weight 65.41 kg Aileen Dunn Loring DO Work Phone: [facility] 10-26-2024 10:19-0500 Diastolic blood pressure 68 mm[Hg] Aileen Dunn Loring DO Work Phone: [facility] 10-26-2024 10:19-0500 Heart rate 68 /min Aileen Dunn Loring DO Work Phone: [facility] 10-26-2024 10:19-0500 SaO2% (BldA) [Mass fraction] 93 % Aileen Dunn Loring DO Work Phone: [facility] 10-26-2024 10:19-0500 Systolic blood pressure 122 mm[Hg] Aileen Dunn Loring DO Work Phone: [facility] 08-30-2024 12:18-0500 Body height 167.[address] 08-30-2024 12:18-0500 Body mass index (BMI) [Ratio] 22.27 kg/m2 [address] 08-30-2024 12:18-0500 Body weight 62.[address] 08-30-2024 12:18-0500 Diastolic blood pressure 86 mm[Hg] [address] 08-30-2024 12:18-0500 Heart rate 59 /min [address] 08-30-2024 12:18-0500 Respiratory rate 18 /min [address] 08-30-2024 12:18-0500 SaO2% (BldA) [Mass fraction] 98 % [address] 08-30-2024 12:18-0500 Systolic blood pressure 174 mm[Hg] [address] 08-16-2024 11:18-0500 Body height 167.6 cm Milan Reid MD Work Phone: [facility] 08-16-2024 11:18-0500 Body mass index (BMI) [Ratio] 22.27 kg/m2 Milan Reid MD Work Phone: [facility] 08-16-2024 11:18-0500 Body weight 62.6 kg Milan Reid MD Work Phone: [facility] 08-16-2024 11:18-0500 Diastolic blood pressure 66 mm[Hg] Milan Reid MD Work Phone: [facility] 08-16-2024 11:18-0500 Heart rate 59 /min Milan Reid MD Work Phone: [facility] 08-16-2024 11:18-0500 SaO2% (BldA) [Mass fraction] 98 % Milan Reid MD Work Phone: [facility] 08-16-2024 11:18-0500 Systolic blood pressure 142 mm[Hg] Milan Reid MD Work Phone: [facility] 04-10-2024 16:23-0400 Body height 167.6 cm Akanksha Millan MD Work Phone: [facility] 04-10-2024 16:23-0400 Body mass index (BMI) [Ratio] 22.05 kg/m2 Akanksha Millan MD Work Phone: [facility] 04-10-2024 16:23-0400 Body weight 61.96 kg Akanksha Millan MD Work Phone: [facility] 04-10-2024 16:23-0400 Diastolic blood pressure 80 mm[Hg] Akanksha Millan MD Work Phone: [facility] 04-10-2024 16:23-0400 Heart rate 73 /min Akanksha Millan MD Work Phone: [facility] 04-10-2024 16:23-0400 SaO2% (BldA) [Mass fraction] 99 % Akanksha Millan MD Work Phone: [facility] 04-10-2024 16:23-0400 Systolic blood pressure 130 mm[Hg] Akanksha Millan MD Work Phone: [facility] 03-28-2024 12:45-0400 Diastolic blood pressure 83 mm[Hg] Lorenza Carver MD Work Phone: [facility] 03-28-2024 12:45-0400 Heart rate 82 /min Lorenza Carver MD Work Phone: [facility] 03-28-2024 12:45-0400 Respiratory rate 18 /min Lorenza Carver MD Work Phone: [facility] 03-28-2024 12:45-0400 SaO2% (BldA) [Mass fraction] 99 % Lorenza Carver MD Work Phone: [facility] 03-28-2024 12:45-0400 Systolic blood pressure 180 mm[Hg] Lorenza Carver MD Work Phone: [facility] 03-28-2024 10:50-0400 Body height 167.6 cm Lorenza Carver MD Work Phone: [facility] 03-28-2024 10:50-0400 Body mass index (BMI) [Ratio] 22.44 kg/m2 Lorenza Carver MD Work Phone: [facility] 03-28-2024 10:50-0400 Body temperature 97.81 [degF] Lorenza Carver MD Work Phone: [facility] 03-28-2024 10:50-0400 Body weight 63.05 kg Lorenza Carver MD Work Phone: [facility] 03-26-2024 16:29-0400 Body height 167.6 cm Akanksha Millan MD Work Phone: [facility] 03-26-2024 16:29-0400 Body mass index (BMI) [Ratio] 22.47 kg/m2 Akanksha Millan MD Work Phone: [facility] 03-26-2024 16:29-0400 Body weight 63.14 kg Akanksha Millan MD Work Phone: [facility] 03-26-2024 16:29-0400 Diastolic blood pressure 78 mm[Hg] Akanksha Millan MD Work Phone: [facility] 03-26-2024 16:29-0400 Heart rate 75 /min Akanksha Millan MD Work Phone: [facility] 03-26-2024 16:29-0400 SaO2% (BldA) [Mass fraction] 98 % Akanksha Millan MD Work Phone: [facility] 03-26-2024 16:29-0400 Systolic blood pressure 140 mm[Hg] Akanksha Millan MD Work Phone: [facility] 03-16-2024 23:31-0400 Diastolic blood pressure 64 mm[Hg] Ashley Miller MD Work Phone: [facility] 03-16-2024 23:31-0400 Heart rate 93 /min Ashley Miller MD Work Phone: [facility] 03-16-2024 23:31-0400 Respiratory rate 17 /min Ashley Miller MD Work Phone: [facility] 03-16-2024 23:31-0400 SaO2% (BldA) [Mass fraction] 97 % Ashley Miller MD Work Phone: [facility] 03-16-2024 23:31-0400 Systolic blood pressure 136 mm[Hg] Ashley Miller MD Work Phone: [facility] 03-16-2024 21:20-0400 Body height 167.6 cm Ashley Miller MD Work Phone: [facility] 03-16-2024 21:20-0400 Body mass index (BMI) [Ratio] 22.6 kg/m2 Ashley Miller MD Work Phone: [facility] 03-16-2024 21:20-0400 Body temperature 97.81 [degF] Ashley Miller MD Work Phone: [facility] 03-16-2024 21:20-0400 Body weight 63.5 kg Ashley Miller MD Work Phone: [facility] 03-16-2024 13:46-0400 Body height 167.6 cm Akanksha Millan MD Work Phone: [facility] 03-16-2024 13:46-0400 Body mass index (BMI) [Ratio] 22.68 kg/m2 Akanksha Millan MD Work Phone: [facility] 03-16-2024 13:46-0400 Body weight 63.73 kg Akanksha Millan MD Work Phone: [facility] 03-16-2024 13:46-0400 Diastolic blood pressure 60 mm[Hg] Akanksha Millan MD Work Phone: [facility] 03-16-2024 13:46-0400 Heart rate 87 /min Akanksha Millan MD Work Phone: [facility] 03-16-2024 13:46-0400 SaO2% (BldA) [Mass fraction] 97 % Akanksha Millan MD Work Phone: 3(125)405-322204 [place] [address] 03-16-2024 13:46-0400 Systolic blood pressure 110 mm[Hg] Akanksha Millan MD Work Phone: 3(023)901-[address] [place] [address] 02-21-2024 13:23-0400 Body height 167.6 cm [facility] 02-21-2024 13:23-0400 Body mass index (BMI) [Ratio] 23.24 kg/m2 [facility] 02-21-2024 13:23-0400 Body weight 65.32 kg [facility] 02-09-2024 10:30-0400 Body height 167.6 cm Rogers Bradley DO Work Phone: [facility] 02-09-2024 10:30-0400 Body mass index (BMI) [Ratio] 23.24 kg/m2 Rogers Bradley DO Work Phone: [facility] 02-09-2024 10:30-0400 Body weight 65.32 kg Rogers Bradley DO Work Phone: [facility] 12-20-2023 09:11-0400 Body height 167.6 cm Akanksha Millan MD Work Phone: [facility] 12-20-2023 09:11-0400 Body mass index (BMI) [Ratio] 23.08 kg/m2 Akanksha Millan MD Work Phone: [facility] 12-20-2023 09:11-0400 Body weight 64.86 kg Akanksha Millan MD Work Phone: [facility] 12-20-2023 09:11-0400 Diastolic blood pressure 70 mm[Hg] Akanksha Millan MD Work Phone: [facility] 12-20-2023 09:11-0400 Heart rate 61 /min Akanksha Millan MD Work Phone: [facility] 12-20-2023 09:11-0400 SaO2% (BldA) [Mass fraction] 97 % Akanksha Millan MD Work Phone: [facility] 12-20-2023 09:11-0400 Systolic blood pressure 130 mm[Hg] Akanksha Millan MD Work Phone: [facility] 12-12-2023 13:52-0400 Body height 167.6 cm Leann Alford APRN-FLOORING SALES MANAGER Work Phone: [facility] 12-12-2023 13:52-0400 Body mass index (BMI) [Ratio] 23.3 kg/m2 Leann Alford APRN-FLOORING SALES MANAGER Work Phone: [facility] 12-12-2023 13:52-0400 Body weight 65.48 kg Leann Wood FAMILY CONSULTANT-FLOORING SALES MANAGER Work Phone: [facility] 12-12-2023 13:52-0400 Diastolic blood pressure 76 mm[Hg] Leann Wood FAMILY CONSULTANT-FLOORING SALES MANAGER Work Phone: [facility] 12-12-2023 13:52-0400 Heart rate 63 /min Leann Wood FAMILY CONSULTANT-FLOORING SALES MANAGER Work Phone: [facility] 12-12-2023 13:52-0400 SaO2% (BldA) [Mass fraction] 98 % Leann Wood FAMILY CONSULTANT-FLOORING SALES MANAGER Work Phone: [facility] 12-12-2023 13:52-0400 Systolic blood pressure 126 mm[Hg] Leann Wood FAMILY CONSULTANT-FLOORING SALES MANAGER Work Phone: 6(895)480-734504 [place] [address] 09-27-2023 11:10-0500 Body height 167.6 cm Kevin Mcdermott MD Work Phone: 3(238)[phone] [place] [address] 09-27-2023 11:10-0500 Body mass index (BMI) [Ratio] 22.87 kg/m2 Kevin Mcdermott MD Work Phone: [facility] 09-27-2023 11:10-0500 Body weight 64.28 kg Kevin Mcdermott MD Work Phone: [facility] 09-27-2023 11:10-0500 Diastolic blood pressure 72 mm[Hg] Kevin Mcdermott MD Work Phone: 7(037)635-491504 [place] [address] 09-27-2023 11:10-0500 Heart rate 89 /min Kevin Mcdermott MD Work Phone: [facility] 09-27-2023 11:10-0500 SaO2% (BldA) [Mass fraction] 96 % Kevin Mcdermott MD Work Phone: [facility] 09-27-2023 11:10-0500 Systolic blood pressure 138 mm[Hg] Kevin Mcdermott MD Work Phone: [facility] 09-06-2023 12:05-0500 Diastolic blood pressure 94 mm[Hg] Faustino 1 [facility] 09-06-2023 12:05-0500 Heart rate 59 /min Faustino 1 [facility] 09-06-2023 12:05-0500 Respiratory rate 16 /min Faustino 1 [facility] 09-06-2023 12:05-0500 SaO2% (BldA) [Mass fraction] 96 % Faustino 1 [facility] 09-06-2023 12:05-0500 Systolic blood pressure 174 mm[Hg] Faustino 1 [facility] 08-25-2023 10:48-0500 Body height 167.6 cm Milan Reid MD Work Phone: [facility] 08-25-2023 10:48-0500 Body mass index (BMI) [Ratio] 22.77 kg/m2 Milan Reid MD Work Phone: [facility] 08-25-2023 10:48-0500 Body weight 64 kg Milan Reid MD Work Phone: [facility] 08-25-2023 10:48-0500 Diastolic blood pressure 80 mm[Hg] Milan Reid MD Work Phone: [facility] 08-25-2023 10:48-0500 Heart rate 59 /min Milan Reid MD Work Phone: [facility] 08-25-2023 10:48-0500 SaO2% (BldA) [Mass fraction] 96 % Milan Reid MD Work Phone: [facility] 08-25-2023 10:48-0500 Systolic blood pressure 122 mm[Hg] Milan Reid MD Work Phone: [facility] 12-17-2022 10:04-0400 Body height 167.6 cm Akanksha Millan MD Work Phone: [facility] 12-17-2022 10:04-0400 Body mass index (BMI) [Ratio] 23.53 kg/m2 Akanksha Millan MD Work Phone: [facility] 12-17-2022 10:04-0400 Body weight 66.13 kg Akanksha Millan MD Work Phone: [facility] 12-17-2022 10:04-0400 Diastolic blood pressure 70 mm[Hg] Akanksha Millan MD Work Phone: [facility] 12-17-2022 10:04-0400 Heart rate 54 /min Akanksha Millan MD Work Phone: [facility] 12-17-2022 10:04-0400 SaO2% (BldA) [Mass fraction] 97 % Akanksha Millan MD Work Phone: [facility] 12-17-2022 10:04-0400 Systolic blood pressure 122 mm[Hg] Akanksha Millan MD Work Phone: [facility] 09-05-2022 21:34-0500 Heart rate 78 /min [facility] 09-05-2022 21:34-0500 Respiratory rate 18 /min [facility] 09-05-2022 21:34-0500 SaO2% (BldA) [Mass fraction] 98 % [facility] 09-05-2022 18:14-0500 Body height 167.64 cm [facility] 09-05-2022 18:14-0500 Body mass index (BMI) [Ratio] 23.8 kg/m2 [facility] 09-05-2022 18:14-0500 Body temperature 97.8 [degF] [facility] 09-05-2022 18:14-0500 Body weight 67.1 kg [facility] 09-05-2022 18:14-0500 Diastolic blood pressure 91 mm[Hg] [facility] 09-05-2022 18:14-0500 Systolic blood pressure 177 mm[Hg] [facility] 08-26-2022 11:21-0500 Body height 167.64 cm Akanksha Millan Work Phone: VK-Dklyzfutci-Momd [address] Work Phone: 08-26-2022 11:21-0500 Body mass index (BMI) [Ratio] 22.78 kg/m2 Akanksha Millan Work Phone: YL-Jzreqlvxnr-Kzjo [address] Work Phone: 08-26-2022 11:21-0500 Body surface area Derived from formula 1.72 m2 Akanksha Millan Work Phone: TI-Cgjyyzeaft-Ihwv [address] Work Phone: 08-26-2022 11:21-0500 Body weight 64.02 kg Akanksha Millan Work Phone: QA-Fsetziczoh-Zlhm [address] Work Phone: 08-26-2022 11:21-0500 Diastolic blood pressure 76 mm[Hg] Akanksha Millan Work Phone: NO-Cnewpdvtzp-Wcla [address] Work Phone: 08-26-2022 11:21-0500 Heart rate 56 /min Akanksha Millan Work Phone: OA-Pqxlejwbvy-Crgd [address] Work Phone: 08-26-2022 11:21-0500 SaO2% (BldA) [Mass fraction] 99 % Akanksha Millan Work Phone: FV-Ajcbzirrui-Axmj [address] Work Phone: 08-26-2022 11:21-0500 Systolic blood pressure 142 mm[Hg] Fortunatopatrick Millan Work Phone: OJ-Jczmrggdhi-Fdld [address] Work Phone: 08-12-2022 10:07-0500 Body height 167.64 cm Fortunatopatrick Chucho Colton Work Phone: CA-Ouvwgwrhun-Jkba [address] Work Phone: 08-12-2022 10:07-0500 Body mass index (BMI) [Ratio] 22.82 kg/m2 Akanksha Millan Work Phone: NI-Fuyvonxfwd-Yjye [address] Work Phone: 08-12-2022 10:07-0500 Body surface area Derived from formula 1.73 m2 Akanksha Millan Work Phone: DB-Wtaedridtn-Yxpb [address] Work Phone: 08-12-2022 10:07-0500 Body weight 64.13 kg Akanksha Millan Work Phone: CT-Slqgygqghk-Jlwl [address] Work Phone: 08-12-2022 10:07-0500 Diastolic blood pressure 80 mm[Hg] Akanksha Millan Work Phone: VK-Wmlxlzxqmw-Fame [address] Work Phone: 08-12-2022 10:07-0500 Systolic blood pressure 140 mm[Hg] Akanksha Millan Work Phone: QR-Vpirsftdks-Orwy [address] Work Phone: 05-13-2022 10:08-0400 Body height 167.64 cm Akanksha Millan Work Phone: [facility] 120 Work Phone: 05-13-2022 10:08-0400 Body mass index (BMI) [Ratio] 22.92 kg/m2 Akanksha Millan Work Phone: [facility] 120 Work Phone: 05-13-2022 10:08-0400 Body surface area Derived from formula 1.73 m2 Akanksha Millan Work Phone: [facility] 120 Work Phone: 05-13-2022 10:08-0400 Body weight 64.41 kg Akanksha Millan Work Phone: [facility] 120 Work Phone: 05-13-2022 10:08-0400 Diastolic blood pressure 80 mm[Hg] Akanksha Millan Work Phone: [facility] 120 Work Phone: 05-13-2022 10:08-0400 Systolic blood pressure 130 mm[Hg] Akanksha Millan Work Phone: [facility] 120 Work Phone: 02-11-2022 14:14-0400 Body height 167.64 cm Akanksha Millan Work Phone: [facility] 120 Work Phone: 02-11-2022 14:14-0400 Body mass index (BMI) [Ratio] 23.24 kg/m2 Akanksha Millan Work Phone: [facility] 120 Work Phone: 02-11-2022 14:14-0400 Body surface area Derived from formula 1.74 m2 Akanksha Millan Work Phone: [facility] 120 Work Phone: 02-11-2022 14:14-0400 Body weight 65.32 kg Akanksha Millan Work Phone: [facility] 120 Work Phone: 02-11-2022 14:14-0400 Diastolic blood pressure 70 mm[Hg] Akanksha Millan Work Phone: [facility] 120 Work Phone: 02-11-2022 14:14-0400 Systolic blood pressure 120 mm[Hg] Akanksha Millan Work Phone: [facility] 120 Work Phone: 12-09-2021 10:10-0400 Body height 167.64 cm Akanksha Millan Work Phone: [facility] Work Phone: 12-09-2021 10:10-0400 Body mass index (BMI) [Ratio] 23 kg/m2 Akanksha Millan Work Phone: [facility] Work Phone: 12-09-2021 10:10-0400 Body surface area Derived from formula 1.73 m2 Akanksha Millan Work Phone: [facility] Work Phone: 12-09-2021 10:10-0400 Body weight 64.64 kg Akanksha Millan Work Phone: [facility] Work Phone: 12-09-2021 10:10-0400 Diastolic blood pressure 70 mm[Hg] Akanksha Millan Work Phone: [facility] Work Phone: 12-09-2021 10:10-0400 Heart rate 57 /min Akanksha Millan Work Phone: [facility] Work Phone: 12-09-2021 10:10-0400 SaO2% (BldA) [Mass fraction] 97 % Akanksha Millan Work Phone: [facility] Work Phone: 12-09-2021 10:10-0400 Systolic blood pressure 128 mm[Hg] Akanksha Millan Work Phone: [facility] Work Phone: 02-13-2021 11:40-0400 Body height 169.55 cm Akanksha Millan Work Phone: [facility] [employer] Work Phone: 02-13-2021 11:40-0400 Body mass index (BMI) [Ratio] 21.84 kg/m2 Akanksha Millan Work Phone: [facility] [employer] Work Phone: 02-13-2021 11:40-0400 Body surface area Derived from formula 1.72 m2 Akanksha Millan Work Phone: [facility] [employer] Work Phone: 02-13-2021 11:40-0400 Body temperature 95.6 [degF] Akanksha Millan Work Phone: [facility] [employer] Work Phone: 02-13-2021 11:40-0400 Body weight 62.77 kg Akanksha Millan Work Phone: [facility] [employer] Work Phone: 02-13-2021 11:40-0400 Diastolic blood pressure 86 mm[Hg] Akanksha Millan Work Phone: [facility] [employer] Work Phone: 02-13-2021 11:40-0400 Heart rate 75 /min Akanksha Millan Work Phone: [facility] [employer] Work Phone: 02-13-2021 11:40-0400 SaO2% (BldA) [Mass fraction] 99 % Akanksha Millan Work Phone: [facility] [employer] Work Phone: 02-13-2021 11:40-0400 Systolic blood pressure 142 mm[Hg] Akanksha Millan Work Phone: [facility] [employer] Work Phone: 12-05-2019 11:54-0400 BMI (Body Mass Index) 23.02 kg/m2 Akanksha Millan [facility] Work Phone: 12-05-2019 11:54-0400 Body weight 66.68 kg Akanksha Millan [facility] Work Phone: 12-05-2019 11:54-0400 BP Diastolic 70 mm[Hg] Akanksha Millan [facility] Work Phone: Comment on above: Location: E; 12-05-2019 11:54-0400 BP Systolic 124 mm[Hg] Akanksha Millan -[facility] Work Phone: Comment on above: Location: [facility]; 12-05-2019 11:54-0400 BSA (Body Surface Area) 1.77 m2 Akanksha Millan [facility] Work Phone: 12-05-2019 11:54-0400 Height 170.18 cm Akanksha Millan -[facility] Work Phone: 12-05-2019 11:54-0400 Pulse (Heart Rate) 69 /min Akanksha Millan -[facility] Work Phone: 12-05-2019 11:54-0400 Pulse Oximetry 98 % Akanksha Millan -[facility] Work Phone: Encounters Encounter Date Encounter Type Care Provider Facility Start: 08-02-2025 End: 08-02-2025 ambulatory [facility] Facility:[facility] Start: 05-23-2025 End: 05-23-[address] Rashid Millan MD Work Phone: [facility] Start: 05-23-2025 End: 05-23-[address] Lety Marcelo MD [facility] Work Phone: Start: 05-23-2025 End: 05-23-20[facility] Start: 05-16-2025 End: 05-16-2025 Office outpatient visit 15 minutes Akanksha Millan MD Work Phone: [facility] Comment on above: Chronic pain of left knee (Primary Dx) Start: 05-16-2025 End: 05-16-2025 ambulatory BOYS RANCH Chucho [facility] Start: 04-24-2025 End: 04-24-[address] Rashid Millan MD Work Phone: [facility] Start: 04-24-2025 End: 04-24-[address] Lety Marcelo MD [facility] Work Phone: Start: 04-24-2025 End: 04-24-2025 ambulatory [facility] Facility:[facility] Start: 02-07-2025 End: 02-07-2025 ambulatory [facility] Ambulatory Start: 02-07-2025 End: 02-07-2025 Office outpatient visit 25 minutes [facility] Work Phone: [facility] Comment on above: Irritable bowel synd tammy with diarrhea (Primary Dx); Dry eye syndrome of both eyes; Acute Lyme disease; Rheumatoid arthritis with negative rheumatoid factor, involving unspecified site (Multi) Start: 02-06-2025 End: 02-06-[address] Rashid Millan MD Work Phone: [facility] Work Phone: Start: 02-06-2025 End: 02-06-[address] Lety Marcelo MD [facility] Work Phone: Start: 02-06-2025 End: 02-06-2025 ambulatory [facility] Facility:[facility] Start: 02-04-2025 End: 02-04-2025 ambulatory [facility] Ambulatory Start: 12-20-2024 End: 12-20-2024 Subsequent hospital visit by physician Faustino X-Ray 1 [facility] Comment on above: Left leg pain Start: 12-20-2024 End: 12-20-2024 ambulatory BOYS RANCH Chucho [facility] Start: 12-20-2024 End: 12-20-2024 Assay of hemosiderin, quant Akanksha Millan MD Work Phone: [facility] Work Phone: Start: 12-20-2024 End: 12-20-2024 Patient encounter procedure Akanksha Millan MD Work Phone: [facility] Comment on above: Routine general medi jaspal examination at health care facility (Primary Dx); Encounter for screening, unspecified; Rheumatoid arthritis with negative rheumatoid factor, involving unspecified site (Multi); Fatigue, unspecified type; Hyperlipemia, mixed; Pulmonary hypertension (Multi); Vitamin B12 deficiency; Irritable bowel syndrome, unspecified type; Renal insufficiency; Left leg pain Start: 12-20-2024 End: 12-20-[address] MILLAN [facility] Amb[facility] Start: 12-20-2024 End: 12-20-2024 Encounter for general adult medical examination without abnormal findings BOYS RANCH Chucho [facility] Ambulatory Start: 10-30-2024 End: 10-30-2024 Subsequent hospital visit by physician Faustino [facility] Comment on above: Breast asymmetry Start: 10-30-2024 End: 10-30-2024 ambulatory [facility] Start: 10-26-2024 End: 10-26-2024 Office outpatient visit 15 minutes [facility] Work Phone: [facility] Comment on above: Breast asymmetry (Pr imary Dx) Start: 10-26-2024 End: 10-26-2024 ambulatory [facility] Ambulatory Start: 10-18-2024 End: 10-18-[address] Lety Marcelo MD [facility] Work Phone: Start: 10-18-2024 End: 10-18-2024 ambulatory Lety Marcelo Facility:[facility] Start: 08-30-2024 End: 08-30-2024 Subsequent hospital visit by physician Faustino Doherty [facility] Comment on above: Acute Lyme disease; Pulmonary HTN (Multi); NSVT (nonsustained ventricular tachycardia) (Multi) Start: 08-30-2024 End: 08-30-2024 ambulatory [facility] Start: 08-16-2024 End: 08-16-2024 Office outpatient visit 25 minutes Milan Reid MD Work Phone: [facility] Comment on above: Acute Lyme disease ( Primary Dx); Pulmonary HTN (Multi); NSVT (nonsustained ventricular tachycardia) (Multi) Start: 08-16-2024 End: 08-16-2024 ambulatory [facility] Ambulatory Start: 05-01-2024 End: 05-01-2024 ambulatory AKANKSHA Rankin MILLAN [facility] Start: 04-10-2024 End: 04-10-2024 Office outpatient visit 15 minutes Akanksha Millan MD Work Phone: [facility] Comment on above: Acute Lyme disease ( Primary Dx); Primary osteoarthritis, unspecified site Start: 03-28-2024 End: 03-30-2024 ambulatory LORENZA CARVER [facility] Start: 03-28-2024 End: 03-28-2024 Subsequent hospital visit by physician Faustino Yang [facility] Comment on above: Arrived Start: 03-28-2024 End: 03-28-2024 Emergency department patient visit Lorenza Carver MD Work Phone: [facility] Comment on above: Rheumatoid arthritis flare (Multi) (Primary Dx); Cervical radiculopathy; Hyponatremia; Water intoxication Start: 03-27-2024 End: 03-27-2024 ambulatory AKANKSHA Rankin MILLAN [facility] Start: 03-26-2024 End: 03-26-2024 Office outpatient visit 15 minutes Akanksha Millan MD Work Phone: [facility] Comment on above: Viral illness (Prima ry Dx); Anemia, unspecified type; Myalgia Start: 03-23-2024 End: 03-23-[address] Start: 03-16-2024 End: 03-16-2024 Emergency department patient visit Ashley Miller MD Work Phone: [facility] Comment on above: Pseudothrombocytopen ia (Primary Dx) Start: 03-16-2024 End: 03-16-2024 ambulatory AKANKSHA Rankin MILLAN [facility] Start: 03-16-2024 End: 03-16-2024 Office outpatient visit 15 minutes Akanksha Millan MD Work Phone: [facility] Comment on above: Viral illness (Prima ry Dx); Elevated liver function tests Start: 02-21-2024 End: 02-21-2024 ambulatory [facility] Start: 02-21-2024 End: 02-21-2024 Subsequent hospital visit by physician Faustino [facility] Comment on above: Breast cancer screen ing by mammogram Start: 02-09-2024 End: 02-09-2024 Office outpatient visit 15 minutes Rogers Bradley DO Work Phone: [facility] Comment on above: Irritable bowel synd tammy, unspecified type (Primary Dx) Start: 01-10-2024 End: 01-10-2024 ambulatory [facility] Work Phone: Start: 01-10-2024 End: 01-10-2024 Patient encounter procedure [facility] Work Phone: Start: 12-20-2023 End: 12-20-2023 Assay of hemosiderin, quant Akanksha Millan MD Work Phone: [facility] Work Phone: Start: 12-20-2023 End: 12-20-2023 Patient encounter procedure Akanksha Millan MD Work Phone: [facility] Comment on above: Routine general medi jaspal examination at health care facility (Primary Dx); Rheumatoid arthritis with negative rheumatoid factor, involving unspecified site (CMS/HCC); Fatigue, unspecified type; Hyperlipemia, mixed; Pulmonary hypertension (CMS/HCC); Vitamin B12 deficiency; Irritable bowel syndrome, unspecified type; Hematuria, unspecified type; Breast cancer screening by mammogram Start: 12-12-2023 End: 12-12-2023 [facility] visit [facility] Work [facility]: [facility] Comment on above: Acute cystitis with hematuria (Primary Dx); Rheumatoid arthritis, involving unspecified site, unspecified whether rheumatoid factor present (CMS/HCC); Pulmonary hypertension ([facility]/HCC); Hematuria, unspecified type Start: 10-18-2023 End: 10-18-2023 ambulatory [facility] Work Phone: Start: 10-18-2023 End: 10-18-2023 Patient encounter procedure [facility] Work Phone: Start: 09-30-2023 End: 09-30-2023 [facility] Work Phone: Start: 09-30-2023 End: 09-30-2023 Patient encounter procedure [facility] Work Phone: Start: 09-27-2023 End: 09-27-2023 Office outpatient visit 15 minutes Kevin Mcdermott MD Work Phone: [facility] Comment on above: Acute cough (Primary Dx) Start: 09-06-2023 End: 09-06-2023 Subsequent hospital visit by physician Faustino Palma [address] [place] [address] Comment on above: Irregular heartbeat; Syncope and collapse Start: 08-25-2023 End: 08-25-2023 Office outpatient visit 25 minutes Milan Reid MD Work Phone: [facility] Comment on above: Syncope and collapse (Primary Dx); Irregular heartbeat Start: 06-30-2023 End: 06-30-2023 Patient encounter procedure [facility] Work Phone: Start: 06-20-2023 End: 06-20-2023 Patient encounter procedure [facility], [facility] Work Phone: Start: 04-28-2023 End: 04-28-2023 ambulatory [facility] Work Phone: Start: 04-28-2023 End: 04-28-2023 Patient encounter procedure [facility] Work Phone: Start: 03-04-2023 End: 03-04-2023 ambulatory [facility] Work Phone: Start: 03-04-2023 End: 03-04-2023 Patient encounter procedure [facility] Start: 02-25-2023 End: 02-25-2023 ambulatory [facility] Work Phone: Start: 02-25-2023 End: 02-25-2023 Patient encounter procedure [facility] Start: 02-18-[address] Rashid Millan Facility:[id number] Start: 12-23-2022 End: 12-23-2022 [facility] Work Phone: Start: 12-23-2022 End: 12-23-2022 Patient encounter procedure [facility] Start: 12-17-2022 End: 12-17-2022 Assay of hemosiderin, quant Akanksha Millan MD Work Phone: [facility] Work Phone: Start: 12-17-2022 End: 12-17-2022 Patient encounter procedure Akanksha Millan MD Work Phone: [facility] Comment on above: Routine general medi jaspal examination at health care facility (Primary Dx); Rheumatoid arthritis with negative rheumatoid factor, involving unspecified site (CMS/HCC); Hyperlipemia, mixed; Vitamin B12 deficiency; Irritable bowel syndrome, unspecified type; Pulmonary hypertension (CMS/HCC); Breast screening; Fatigue, unspecified type; Breast cancer screening by mammogram; Irregular heartbeat Start: 09-29-2022 End: 09-29-2022 Patient encounter procedure [facility] Start: 09-05-2022 End: 09-05-2022 Emergency department patient visit [facility]Emergency Department Start: 08-26-2022 Office outpatient vi sit 15 minutes Akanksha Millan Work Phone: ML-Zmsdoobnfl-Zfwr and [address] Work Phone: Start: 05-14-2022 End: 05-14-2022 ambulatory [facility] Work Phone: Start: 05-14-2022 End: 05-14-2022 [facility] Start: 05-13-2022 Office outpatient vi sit 15 minutes Akanksha Millan Work Phone: -[facility] [address] Work Phone: Start: 04-14-2022 AUDIT Akanksha Millan Work Phone: UR-Moygeqgfkp-Vykn and [address] [employer] Work Phone: Start: 03-31-2022 End: 03-31-2022 Patient encounter procedure [facility] Start: 02-18-2022 Chart Update Akanksha Millan Work Phone: -Medical [facility] Work Phone: Start: 02-11-2022 Office outpatient ne w 30 minutes Akanksha Millan Work Phone: -[facility] [employer] [address] Work Phone: Start: 12-30-2021 End: 12-30-2021 Patient encounter procedure [facility] Start: 12-09-2021 Patient encounter procedure Mik Millan Work Phone: -Medical [facility] Work Phone: Start: 10-14-2021 End: 10-14-2021 Patient encounter procedure [facility] Start: 08-18-2021 End: 08-18-[address] DANIAL SOSA [facility] Start: 05-12-2021 AUDIT Akanksha Millan Work Phone: QG-Ncqqnjpsku-Xylf and [address] Work Phone: Start: 02-13-2021 Office outpatient ne w 45 minutes Akanksha Millan Work Phone: JE-Usopkqwzdr-Jtvm and [address] Work Phone: Start: 01-29-2021 AUDIT Akanksha Millan Work Phone: [facility] [employer] Work Phone: Start: 09-23-2017 End: 09-23-2017 Ambulatory [facility] Patient encounter procedure Chri aman Millan Work Phone: [facility] [employer] Work Phone: Procedures Date Procedure Procedure Detail Performing Clinician Start: 05-23-2025 X-ray of knee, four or [address] Rashid Millan MD Work Phone: Start: 05-16-2025 Arthrocentesis aspir &/inj major jt/bursa w/o us Akanksha Millan MD Work Phone: Start: 02-07-2025 Follow-up visit Follow-up ROGERS BRADLEY Start: 10-18-2024 Measurement of renal function Dr. Rashid Millan MD Work Phone: Comment on above: GFR Calc Start: 08-30-2024 Echo tthrc r-t 2d w/ wom-mode compl spec&colr d Milan Reid MD Work Phone: Start: 05-01-2024 Blood count complete auto&auto difrntl wbc Akanksha Millan MD Work Phone: Start: 03-28-2024 Radex spine cervical 2 or 3 views Lorenza Carver MD Work Phone: Start: 03-28-2024 Basic metabolic pane l calcium total Lorenza Carver MD Work Phone: Start: 03-28-2024 Urnls dip stick/tabl et rgnt auto w/o microscopy Lorenza Carver MD Work Phone: Start: 03-28-2024 Ecg routine ecg w/le ast 12 lds trcg only w/o i&r Lorenza Carver MD Work Phone: Start: 03-16-2024 EXTRA TUBES Ashley braxton MD Work Phone: Start: 03-16-2024 LAVENDER TOP Ashley braxton MD Work Phone: Start: 03-16-2024 LIGHT BLUE TOP Ashley salvador MD Work Phone: Start: 03-16-2024 Comprehensive metabo lic panel Ashley Miller MD Work Phone: Start: 03-16-2024 RBC shape Nom (Bld) Shanti Miller MD Work Phone: Start: 03-16-2024 SLIDE REQUEST Ashley miller MD Work Phone: Start: 02-21-2024 Screening digital br east tomosynthesis bi Akanksha Millan MD Work Phone: Start: 01-10-2024 Lipid 1996 panel - S franklyn or Plasma Rogers Thompatricio DO Work Phone: Start: 12-20-2023 Urnls dip stick/tabl et rgnt auto w/o microscopy Akanksha Millan MD Work Phone: Start: 12-12-2023 Urnls dip stick/tabl et rgnt auto w/o microscopy Leann Alford APRN-FLOORING SALES MANAGER Work Phone: Start: 09-06-2023 Echo tthrc r-t 2d w/ wom-mode compl spec&colr d Milan Reid MD Work Phone: Start: 08-25-2023 Ecg routine ecg w/le ast 12 lds w/i&r Milan Reid MD Work Phone: Start: 06-20-2023 Ultrasonography of abdomen Start: 12-23-2022 Lipid 1996 panel - S franklyn or Plasma Milan Reid MD Work Phone: Start: 09-05-2022 CT of head without contrast Start: 01-27-2021 Echocardiography Fortunato Millan Work Phone: [...] Breast screening Chr cj Millan Colonoscopy Akanksha rankin Comment on above: 2018, dread Bradley ve; Dilation and curettage Roberto Millan Hysterectomy Akanksha rankin Ligation of fallopian tube C hristpatrick Millan Surgical procedure o n eye proper Akanksha Millan Work Phone: Comment on above: cataracts; Plan of Treatment Date Care Activity Detail Author Start: 01-09-2029 Lipid panel Lipid Panel [facility] Start: 12-24-2027 Lipid panel Lipid Panel [facility] Start: 02-13-2026 End: 02-13-2026 Patient encounter procedure 02/13/2026 10:00 AM EDT Office Visit [facility] [address] [facility] [address] [place] [phone] Rogers Bradley, [address] [facility] [address] [place] [address] [facility] Start: 12-23-2025 End: 12-23-2025 Patient encounter procedure 12/23/2025 10:00 AM EDT Office Visit [facility] [address] [facility] [address] [place] [phone] Akanksha Millan MD [address] [facility] [address] [place] [address] [facility] Start: 12-21-2025 Medicare Annual Wellness Visit Medicare Annual Wellness Visit (AWV) [facility] Start: 08-13-2025 End: 08-13-2025 Patient encounter procedure 08/13/2025 1:45 PM EST Office Visit [facility] Medical Office Building [address] [place] [phone] Al Downey, FAMILY CONSULTANT-FLOORING SALES MANAGER [address], [address] [place] [address] [facility] Building Start: 05-27-2025 Influenza vaccination Influenza Vacc ine (#1) [facility] Start: 02-07-2025 End: 02-07-2025 Patient encounter procedure 02/07/2025 10:00 AM EDT Office Visit [facility] [address] [place] [phone] Rogers Bradley, [address] [facility] [place] [place] [id number] [facility] Start: 01-17-2025 COVID-19 Vaccine ( season) COVID-19 Vaccine ( season) [facility] Start: 01-17-2025 COVID-19 Vaccine (7 - Moderna risk season) COVID-19 Vaccine (7 - Moderna risk season) [facility] Start: 12-20-2024 End: 12-20-2025 C reactive protein [Mass/volume] in Serum or Plasma C-Reactive Protein Lab Routine Fatigue, unspecified type Expected: 12/20/2024 (Approximate), Expires: 12/20/2025 [facility] Work Phone: Comment on above: Expected: 12/20/2024 (Approximate), Expires: 12/20/2025 Start: 12-20-2024 End: 12-20-2025 CBC W Auto Differential panel - Blood CBC and Auto Differential Lab Routine Vitamin B12 deficiency Renal insufficiency Expected: 12/20/2024 (Approximate), Expires: 12/20/2025 [facility] Work Phone: Comment on above: Expected: 12/20/2024 (Approximate), Expires: 12/20/2025 Start: 12-20-2024 End: 12-20-2025 Cobalamin (Vitamin B12) [Mass/volume] in Serum or Plasma Vitamin B12 Lab Routine Vitamin B12 deficiency Expected: 12/20/2024 (Approximate), Expires: 12/20/2025 [facility] Work Phone: Comment on above: Expected: 12/20/2024 (Approximate), Expires: 12/20/2025 Start: 12-20-2024 End: 12-20-2025 Comprehensive metabolic 2000 panel - Serum or Plasma Comprehensive Metabolic Panel Lab Routine Renal insufficiency Expected: 12/20/2024 (Approximate), Expires: 12/20/2025 [facility] Work Phone: Comment on above: Expected: 12/20/2024 (Approximate), Expires: 12/20/2025 Start: 12-20-2024 End: 12-20-2025 Erythrocyte sedimentation rate Sedimentation Rate Lab Routine Fatigue, unspecified type Expected: 12/20/2024 (Approximate), Expires: 12/20/2025 [facility] Work Phone: Comment on above: Expected: 12/20/2024 (Approximate), Expires: 12/20/2025 Start: 12-20-2024 Medicare Annual Wellness Visit Medicare Annual Wellness Visit (AWV) [facility] Start: 12-20-2024 End: 12-20-2025 TSH with reflex to Free T4 if abnormal TSH with reflex to Free T4 if abnormal Lab Routine Fatigue, unspecified type Expected: 12/20/2024 (Approximate), Expires: 12/20/2025 [facility] Work Phone: Comment on above: Expected: 12/20/2024 (Approximate), Expires: 12/20/2025 Start: 12-20-2024 End: 12-20-2025 XR Lumbar spine 2 or 3 Views [facility] Service Area Work Phone: Comment on above: Expected: 12/20/2024 , Expires: 12/20/2025 Once for 1 Occurrenc es starting 12/20/2024 until 12/20/2024 Start: 12-20-2024 End: 12-20-2024 Patient encounter procedure [facility] Comment on above: Lyme disease, unspec ified (Primary Dx); Other fatigue; Encounter for screening, unspecified Start: 10-26-2024 End: 12-24-2025 DBT Breast - bilateral diagnostic BI mammo bilateral diagnostic tomosynthesis Imaging Routine Breast asymmetry Expected: 10/26/2024 (Approximate), Expires: 12/24/2025 [facility] Work Phone: Comment on above: Expected: 10/26/2024 (Approximate), Expires: 12/24/2025 Start: 08-16-2024 End: 08-16-2025 Holter monitor study Holter or Event [facility] Routine Acute Lyme disease Pulmonary HTN (Multi) NSVT (nonsustained ventricular tachycardia) (Multi) Expected: 08/16/2024, Expires: 08/16/2025 [facility] Work Phone: Comment on above: Expected: 08/16/2024 , Expires: 08/16/2025 Start: 08-16-2024 End: 08-16-2026 US Heart Transthoracic Transthoracic Echo (TTE) Complete Echocardiography Routine Acute Lyme disease Pulmonary HTN (Multi) NSVT (nonsustained ventricular tachycardia) (Multi) Expected: 08/16/2024 (Approximate), Expires: 08/16/2026 [facility] Work Phone: Comment on above: Expected: 08/16/2024 (Approximate), Expires: 08/16/2026 Start: 08-16-2024 End: 08-16-2024 Patient encounter procedure 08/16/2024 11:15 AM EST Office Visit [facility] Medical Office Building [address] [place] [address] Milan Reid MD [address], [address] [place] [address] [facility] Start: 05-27-2024 Influenza vaccination [facility] Start: 05-02-2024 End: 05-02-2024 Patient encounter procedure 05/02/2024 10:40 AM EDT Office Visit [place] [id number] [facility] [address] [place] [address] Akanksha Millan MD [address] [place] [address] [facility] Start: 03-26-2024 End: 03-26-2025 C reactive protein [Mass/volume] in Serum or Plasma C-Reactive Protein Lab Routine Viral illness Anemia, unspecified type Myalgia Expected: 03/26/2024 (Approximate), Expires: 03/26/2025 [facility] Work Phone: Comment on above: Expected: 03/26/2024 (Approximate), Expires: 03/26/2025 Start: 03-26-2024 End: 03-26-2025 CBC W Auto Differential panel - Blood CBC and Auto Differential Lab Routine Viral illness Anemia, unspecified type Myalgia Expected: 03/26/2024 (Approximate), Expires: 03/26/2025 [facility] Service Area Work Phone: Comment on above: Expected: 03/26/2024 (Approximate), Expires: 03/26/2025 Start: 03-26-2024 End: 03-26-2025 Comprehensive metabolic 2000 panel - Serum or Plasma Comprehensive Metabolic Panel Lab Routine Viral illness Anemia, unspecified type Myalgia Expected: 03/26/2024 (Approximate), Expires: 03/26/2025 [facility] Work Phone: Comment on above: Expected: 03/26/2024 (Approximate), Expires: 03/26/2025 Start: 03-26-2024 End: 03-26-2025 Erythrocyte sedimentation rate Sedimentation Rate Lab Routine Viral illness Anemia, unspecified type Myalgia Expected: 03/26/2024 (Approximate), Expires: 03/26/2025 [facility] Work Phone: Comment on above: Expected: 03/26/2024 (Approximate), Expires: 03/26/2025 Start: 03-26-2024 End: 03-26-2025 Ferritin [Mass/volume] in Serum or Plasma Ferritin Lab Routine Viral illness Anemia, unspecified type Myalgia Expected: 03/26/2024 (Approximate), Expires: 03/26/2025 [facility] Work Phone: Comment on above: Expected: 03/26/2024 (Approximate), Expires: 03/26/2025 Start: 03-26-2024 End: 03-26-2025 LYME (B. BURGDORFERI) AB MODIFIED 2-TITER TESTING, WITH REFLEX TO IGM AND IGG BY ROCÍO LYME (B. BURGDORFERI) AB MODIFIED 2-TITER TESTING, WITH REFLEX TO IGM AND IGG BY ROCÍO Lab Routine Viral illness Anemia, unspecified type Myalgia Expected: 03/26/2024 (Approximate), Expires: 03/26/2025 [facility] Work Phone: Comment on above: Expected: 03/26/2024 (Approximate), Expires: 03/26/2025 Start: 03-16-2024 End: 03-16-2025 CBC W Auto Differential panel - Blood [facility] Service Area Work Phone: Comment on above: Expected: 03/16/2024 (Approximate), Expires: 03/16/2025 Start: 03-16-2024 End: 03-16-2025 Comprehensive metabolic 2000 panel - Serum or Plasma [facility] Work Phone: Comment on above: Expected: 03/16/2024 (Approximate), Expires: 03/16/2025 Start: 02-21-2024 End: 02-21-2024 Patient encounter procedure 02/21/2024 1:15 PM EDT Appointment [facility] [address] [place] [address] [facility] Start: 02-09-2024 End: 02-09-2024 Patient encounter procedure 02/09/2024 10:30 AM EDT Office Visit [facility] [address] [place] [address] Rogers Bradley, [address] [facility] [address] [place] [address] [facility] Start: 12-27-2023 Zoster Vaccines (3 o f 3) Zoster Vaccines (3 of 3) [facility] Start: 12-20-2023 End: 12-19-2024 CBC W Auto Differential panel - Blood CBC and Auto Differential Lab Routine Rheumatoid arthritis with negative rheumatoid factor, involving unspecified site (CMS/HCC) Fatigue, unspecified type Expected: 12/20/2023 (Approximate), Expires: 12/19/2024 [facility] Service Area Work Phone: Comment on above: Expected: 12/20/2023 (Approximate), Expires: 12/19/2024 Start: 12-20-2023 End: 12-19-2024 Cobalamin (Vitamin B12) [Mass/volume] in Serum or Plasma Vitamin B12 Lab Routine Fatigue, unspecified type Vitamin B12 deficiency Expected: 12/20/2023 (Approximate), Expires: 12/19/2024 [facility] Work Phone: Comment on above: Expected: 12/20/2023 (Approximate), Expires: 12/19/2024 Start: 12-20-2023 End: 12-19-2024 Comprehensive metabolic 2000 panel - Serum or Plasma Comprehensive Metabolic Panel Lab Routine Rheumatoid arthritis with negative rheumatoid factor, involving unspecified site (CMS/HCC) Fatigue, unspecified type Hyperlipemia, mixed Pulmonary hypertension (CMS/HCC) Vitamin B12 deficiency Expected: 12/20/2023 (Approximate), Expires: 12/19/2024 [facility] Work Phone: Comment on above: Expected: 12/20/2023 (Approximate), Expires: 12/19/2024 Start: 12-20-2023 End: 02-18-2025 DBT Breast - bilateral BI mammo bilateral screening tomosynthesis Imaging Routine Breast cancer screening by mammogram Expected: 12/20/2023, Expires: 02/18/2025 [facility] Work Phone: Comment on above: Expected: 12/20/2023 , Expires: 02/18/2025 Start: 12-20-2023 End: 12-19-2024 Lipid 1996 panel - Serum or Plasma Lipid Panel Lab Routine Hyperlipemia, mixed Expected: 12/20/2023 (Approximate), Expires: 12/19/2024 [facility] Work Phone: Comment on above: Expected: 12/20/2023 (Approximate), Expires: 12/19/2024 Start: 12-20-2023 End: 12-20-2023 Patient encounter procedure 12/20/2023 9:20 AM EDT Office Visit [facility] [address] [place] [phone] Akanksha Millan MD [address] [place] [address] [facility] Start: 12-19-2023 Medicare Annual Wellness Visit Medicare Annual Wellness Visit (AWV) [facility] Start: 12-19-2023 End: 12-19-2023 Patient encounter procedure [facility] Start: 08-25-2023 End: 08-25-2025 US Heart Transthoracic Transthoracic Echo (TTE) Complete Echocardiography Routine Irregular heartbeat Syncope and collapse Expected: 08/25/2023 (Approximate), Expires: 08/25/2025 [facility] Service Area Work Phone: Comment on above: Expected: 08/25/2023 (Approximate), Expires: 08/25/2025 Start: 08-25-2023 FUV, Provider: Milan Reid, Status: Jarrell, Time: 10:30 AM FUV, Provider: Milan Reid, Status: Jarrell, Time: 10:30 AM [id number] and [address] Work Phone: Start: 05-27-2023 COVID-19 Vaccine () COVID-19 Vaccine () [facility] Start: 05-27-2023 COVID-19 Vaccine () COVID-19 Vaccine () [facility] Start: 05-27-2023 Influenza vaccination Influenza Vacc ine (#1) [facility] Start: 02-18-2023 End: 02-17-2024 BI mammo bilateral screening tomosynthesis BI mammo bilateral screening tomosynthesis Imaging Routine Breast screening Breast cancer screening by mammogram Expected: 02/18/2023, Expires: 02/17/2024 [facility] Service Area Work Phone: Comment on above: Expected: 02/18/2023 , Expires: 02/17/2024 Start: 02-10-2023 Screening for osteoporosis Bone Density Scan [facility] Start: 02-10-2023 FUV, Provider: Rogers Bradley, Status: Jarrell, Time: 10:30 AM FUV, Provider: Rogers Bradley, Status: Pen, Time: 10:30 AM [id number] and [address] Work Phone: Start: 12-17-2022 End: 12-18-2023 Cobalamin (Vitamin B12) [Mass/volume] in Serum or Plasma Vitamin B12 Lab Routine Vitamin B12 deficiency Fatigue, unspecified type Expected: 12/17/2022 (Approximate), Expires: 12/18/2023 [facility] Work Phone: Comment on above: Expected: 12/17/2022 (Approximate), Expires: 12/18/2023 Start: 12-17-2022 End: 12-18-2023 Comprehensive metabolic 2000 panel - Serum or Plasma Comprehensive Metabolic Panel Lab Routine Hyperlipemia, mixed Fatigue, unspecified type Expected: 12/17/2022 (Approximate), Expires: 12/18/2023 [facility] Work Phone: Comment on above: Expected: 12/17/2022 (Approximate), Expires: 12/18/2023 Start: 12-17-2022 End: 12-18-2023 Lipid 1996 panel - Serum or Plasma Lipid Panel Lab Routine Hyperlipemia, mixed Expected: 12/17/2022 (Approximate), Expires: 12/18/2023 [facility] Work Phone: Comment on above: Expected: 12/17/2022 (Approximate), Expires: 12/18/2023 Start: 12-17-2022 End: 12-18-2023 Thyrotropin [Units/volume] in Serum or Plasma Thyroid Stimulating Hormone Lab Routine Fatigue, unspecified type Expected: 12/17/2022 (Approximate), Expires: 12/18/2023 [facility] Work Phone: Comment on above: Expected: 12/17/2022 (Approximate), Expires: 12/18/2023 Start: 12-15-2022 Patient encounter procedure MCRANNUAL, Provider: Akanksha Millan, Status: Pen, Time: 10:00 AM [facility] Work Phone: Start: 08-13-2022 COVID-19 Vaccine (4 - Moderna series) COVID-19 Vaccine (4 - Moderna series) [facility] Start: 08-12-2022 FUV, Provider: Rogers Bradley, Status: Pen, Time: 10:00 AM FUV, Provider: Rogers Bradley, Status: Pen, Time: 10:00 AM [facility] [address] Work Phone: Start: 08-11-2022 FUV, Provider: Milan Reid, Status: Pen, Time: 11:15 AM FUV, Provider: Milan Reid, Status: Pen, Time: 11:15 AM [facility] Work Phone: Start: 05-13-2022 FUV, Provider: Rogers Bradley, Status: Pen, Time: 10:00 AM FUV, Provider: Rogers Bradley, Status: Pen, Time: 10:00 AM [facility] [address] Work Phone: Start: 02-11-2022 NPV, Provider: Rogers Bradley, Status: Pen, Time: 2:00 PM NPV, Provider: Rogers Bradley, Status: Pen, Time: 2:00 PM [facility] Work Phone: Start: 12-08-2021 Patient encounter procedure MCRANNUAL, Provider: Akanksha Millan, Status: Pen, Time: 10:00 AM [facility] [employer] Work Phone: Start: 08-18-2021 FUV, Provider: Milan Reid, Status: Pen, Time: 3:00 PM FUV, Provider: Milan Reid, Status: Pen, Time: 3:00 PM [facility] Corporate Work Phone: Start: 08-12-2021 FUV, Provider: Milan Reid, Status: Pen, Time: 11:15 AM FUV, Provider: Milan Reid, Status: Pen, Time: 11:15 AM [id number] and [address] Work Phone: Start: 11-23-2012 Zoster Vaccines (2 o f 3) Zoster Vaccines (2 of 3) [facility] Start: 1967 DTaP/Tdap/Td Vaccine s (1 - Tdap) DTaP/Tdap/Td Vaccines (1 - Tdap) [facility] Start: 1963 Hepatitis C screening Hepatitis C [facility] Start: 1945 Lipid panel Lipid Panel [facility] Start: 1945 Medicare Annual Wellness Visit Medicare Annual Wellness Visit (AWV) [facility] End: 10-30-2024 DBT Breast - bilateral diagnostic [facility] Service Area Work Phone: Comment on above: Once for 1 Occurrenc es starting 10/30/2024 until 10/30/2024 End: 03-28-2024 ECG 12 lead [facility] Service Area Work Phone: Comment on above: Once for 1 Occurrenc es starting 03/28/2024 until 03/28/2024 End: 03-28-2024 Extra Urine Douglas Tube [facility] Work Phone: Comment on above: Once for 1 Occurrenc es starting 03/28/2024 until 03/28/2024 End: 08-30-2024 Holter monitor study [facility] Service Area Work Phone: Comment on above: Once for 1 Occurrenc es starting 08/30/2024 until 08/30/2024 MG Breast screening Mamm - Scree bal Mammogram w/ Tomosynthesis [facility] Work Phone: Comment on above: After 07Jan2020 Patient Education ED BPV Vertigo [facility] Work Phone: Patient referral [facility] Work Phone: End: 03-28-2024 Urinalysis complete W Reflex Culture panel - Urine [facility] Work Phone: Comment on above: Once (Lab) for 1 Occ urrences starting 03/28/2024 until 03/28/2024 -[facility] Work Phone: NEGATED: Highlighted row has been ruled out! Planned Goals not documented -[facility] Work Phone: Immunizations Immunization Date Immunization Notes Care Provider Martin boyer 07-19-2024 Pfizer COVID-19 vaccine, 12 years and older, (30mcg/0.3mL) (Comirnaty) Aileen Dunn Loring DO Work Phone: [facility] Work Phone: 07-19-2024 Seasonal trivalent influenza vaccine, adjuvanted, preservative free Aileen Dunn Loring DO Work Phone: [facility] Work Phone: 07-19-2024 influenza virus vaccine, unspecified formulation Akanksha Millan MD Work Phone: [facility] Work Phone: 01-05-2024 zoster vaccine recombinant Aileen Dunn Loring DO Work Phone: [facility] Work Phone: 11-01-2023 zoster vaccine recombinant Aileen Dunn Loring DO Work Phone: [facility] Work Phone: 07-05-2023 RESPIRATORY SYNCYTIA L VIRUS (RSV), ELIGIBLE PTS, 0.5 ML (ABRYSVO) Aileen Dunn Loring DO Work Phone: [facility] Work Phone: 07-01-2022 Influenza, Seasonal, Quadrivalent, Adjuvanted Aileen Dunn Loring DO Work Phone: [facility] Work Phone: 07-01-2022 influenza virus vaccine, unspecified formulation Milan Reid MD Work Phone: [facility] Work Phone: 06-18-2022 Pfizer COVID-19 vaccine, bivalent, age 12 years and older (30 mcg/0.3 mL) Aileen Dunn Loring DO Work Phone: [facility] 01-29-2022 Pfizer Douglas Cap SARS-CoV-2 Aileen Dunn Loring DO Work Phone: [facility] Work Phone: 08-11-2021 Moderna COVID-19 Vaccine 100 MCG/0.5ML Intramuscular Suspension Akanksha Millan Work Phone: [facility] Comment on above: Series: 06-30-2021 influenza, seasonal, injectable Akanksha Millan Work Phone: [facility] Work Phone: Comment on above: Series: 11-19-2020 Moderna COVID-19 Vaccine 100 MCG/0.5ML Intramuscular Suspension Akanksha Millan Work Phone: [facility] Comment on above: Series: 10-22-2020 Moderna COVID-19 Vaccine 100 MCG/0.5ML Intramuscular Suspension Akanksha Millan Work Phone: [facility] Comment on above: Series: 07-01-2020 Flu vaccine, quadrivalent, high-dose, preservative free, age 65y+ (FLUZONE) Aileen Dunn Loring DO Work Phone: [facility] Work Phone: 07-01-2020 influenza, seasonal, injectable Akanksha Millan Work Phone: [facility] Work Phone: Comment on above: Series: 07-11-2019 influenza, high dose seasonal, preservative-free Aileen Dunn Loring DO Work Phone: [facility] Work Phone: 07-11-2019 influenza, seasonal, injectable Akanksha Millan -[facility] Work Phone: Comment on above: Series: 03-06-2018 pneumococcal polysaccharide vaccine, 23 valent Akanksha Millan Work Phone: [facility] Work Phone: Comment on above: Series: 03-06-2018 pneumococcal polysaccharide vaccine, 23 valent Akanksha Millan -[facility] Work Phone: 11-12-2015 pneumococcal conjuga te vaccine, 13 valent Akanksha Millan -[facility] Work Phone: Comment on above: Series: 09-28-2012 pneumococcal polysaccharide vaccine, 23 valent Akanksha Millan -[facility] Work Phone: Comment on above: Series: 09-28-2012 zoster vaccine, live Akanksha rankin -[facility] Work Phone: Comment on above: Series: 09-28-2012 pneumococcal polysaccharide vaccine, 23 valent Akanksha Millan [facility] Work Phone: 09-26-2012 pneumococcal polysaccharide vaccine, 23 valent Akanksha Millan Work Phone: [facility] [employer] Work Phone: Comment on above: Series: 09-11-2009 novel [id number], preservative-free, injectable Akanksha Millan Work Phone: [facility] Work Phone: 08-08-2007 influenza virus vaccine, whole virus Akanksha Millan Work Phone: [facility] Work Phone: Payers Date Payer Category Payer Self-pay [id number] 2021 Medicare AETNA MEDICARE A ETONEYDA FISHER MEDICARE [id number] 2021-Present [address] [place] [address] [id number] 2021 Medicare (Managed Care) AETNA GO [facility] MEDICARE [id number] 2012 Private Health Insurance [facility] [id number] 1945 Unknown [id number] 2.16.840.1.549736.3.579.2. 651 1945 Unknown [id number] 2.16.840.1.415730.3.579.2. 1069 1945 Unknown [id number] 2.16.840.1.122039.3.579.2. 1244 1945 Unknown [id number] 2.16.840.1.299456.3.579.2. 124 1945 Unknown [id number] 2..840.1.688656.3.579.2. 1244 1945 Unknown [id number] 2.16.840.1.148129.3.579.2. 1244 1945 Unknown [id number] 2.840.1.972198.3.579.2. 1242 1945 Unknown [id number] 2.840.1.948540.3.579.2. 1242 1945 Unknown [id number] 2.840.1.524817.3.579.2. 1242 1945 Unknown [id number] 2.840.1.816395.3.579.2. 1242 1945 Unknown [id number] 2.840.1.182317.3.579.2. 1242 1945 Unknown [id number] 2.840.1.201700.3.579.2. 1242 1945 Unknown [id number] 2.16840.1.149305.3.579.2. 1242 1945 Unknown [id number] 2.16840.1.149195.3.579.2. 1242 1945 Unknown [id number] 2.16840.1.958980.3.579.2. 4 1945 Unknown [id number] 2.16.840.1.389695.3.579.2. 1244 1945 Unknown [id number] 2.16.840.1.191500.3.579.2. 1244 1945 Unknown [id number] 2.16.840.1.836893.3.579.2. 1244 1945 Unknown [id number] 2.16.840.1.434369.3.579.2. 1244 1945 Unknown [id number] 2.16.840.1.622335.3.579.2. 1244 Private Health Insurance MEB GQCGT Unknown AETNA Unknown [id number] 2.16.840.1.658293.3.579.2. 462 Unknown [id number] 2.16.840.1.644927.3.579.2. 462 Unknown [id number] 2.16.840.1.523366.3.579.2. 462 Unknown [id number] 2.16.840.1.175906.3.579.2. 462 Unknown [id number] 2.16.840.1.022637.3.579.2. 462 Social History Date Type Detail Facility Assertion Tobacco smoking consumption unknown (finding) [facility] Work Phone: Start: 12-17-2022 End: 12-20-2024 Patient has healthcare proxy and living will Patient has healthcare proxy and living will [facility] Start: 06-06-2021 End: 09-05-2022 Tobacco smoking status NHIS Unknown if ever smoked [facility] Start: 1945 Sex Assigned At Female W [facility] Start: 08-25-2023 End: 04-05-2024 Tobacco smoking status NHIS Never smoked tobacco [facility] Work Phone: Start: 12-17-2022 End: 08-25-2023 Tobacco use and exposure Smokeless tobacco non-user [facility] Work Phone: Start: 08-25-2023 End: 05-16-2025 Alcohol intake Ex-drinker (finding) [facility] Work Phone: Start: 12-17-2022 End: 12-20-2024 Tobacco use panel [facility] Start: 1945 [facility]: Start: 12-07-2022 End: 02-07-2025 Exposure to SARS-CoV-2 (event) Not sure [facility] Start: 12-17-2022 Alcohol intake Lifetime non-d riddhi (finding) [facility] Work Phone: Start: 08-21-2022 Sex Female [facility] NEGATED: Highlighted row Denies Consumes alcohol occasionally Denies Consumes alcohol occasionally [facility][1] Work Phone: NEGATED: Highlighted rowStart: NINF History of tobacco use Passive smoker [facility] Work Phone: Functional Status Date Assessment Result Facility NEGATED: Highlighted row Functional performance Functional status health issues are not documented [facility] Work Phone: Mental Status Date Assessment Result Facility 09-05-2022 Cognitive function Level Of Cons ciousness Awake;Alert;Appropriate [facility] Work Phone: NEGATED: Highlighted row Cognitive function [Interpretation] Cognitive status health issues are not documented [facility] Work Phone: Clinical Notes 01-30-2020 to 05-23-2025 Akanksha Millan MD - 05/16/2025 4:40 PM Aleyda Bradley DO - 02/07/2025 10:00 AM EDTAssessment & Plan Note - Akanksha Millan MD - 12/20/2024 10:00 AM EDTPatient Instructions Note Date & Type Note Facility 05-23-2025 Radiology Diagnostic study note [facility] Services [address] [place] [address] Knee 4 or More Views MR#: [id number] Acct: [id number] Name: KIM ROCHA Rep #: [id number] : 1945 F 80 From: Brunilda Ac MD PCP: Dr. 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 FINDINGS: BONES: No acute fracture or focal osseous lesion. JOINTS: No significant joint effusion. No dislocation. Moderately severe medial compartment narrowing with subchondral sclerosis and marginal osteophytes. SOFT TISSUES: The soft tissues are unremarkable. RAD/Knee 4 or More Views IMPRESSION: 1. No acute osseous abnormality. 2. Moderately severe medial compartment osteoarthrosis. Reading Location: [facility] CC: Dr. Rashid Millan MD; Dr. Lety Marcelo MD ~ Protein Scientist: Signed [facility] 05-23-2025 Radiology Diagnostic study note [facility] Imaging Services [address] [place] [address] [id number] Knee 4 or More Views MR#: [id number] Acct: [id number] Name: KIM ROCHA Rep #: [id number] : 1945 F 80 From: Brunilda Ac MD PCP: Dr. Rashid Millan MD Status: RE CLI Study:Knee 4 or More Views Date of Exam: 05/23/25 Exam# [id number] Ordering Dr: Lety Marcelo MD PROCEDURE: KNEE 4 OR MORE VIEWS 05/23/2025 REASON FOR EXAM: RA TECHNIQUE: KNEE 4 OR MORE VIEWS Laterality: Left COMPARISON: None. FINDINGS: BONES: No acute fracture or focal osseous lesion. JOINTS: Small to moderate-sized suprapatellar joint effusion. No dislocation. Minimal narrowing in the medial compartment. SOFT TISSUES: The soft tissues are unremarkable. RAD/Knee 4 or More Views IMPRESSION: 1. No acute osseous abnormality. 2. Mild-moderate knee joint effusion. Reading Location: [facility] CC: Dr. Rashid Millan MD; Dr. Lety Marcelo MD ~ Protein Scientist: Signed [facility] 05-16-2025 History of Presen t illness Narrative Associated Order(s): Joint Injection Large/Arthrocentesis: L knee Post-Procedure Diagnose(s): Chronic pain of left knee Subjective Patient ID: Kim Rocha is a 80 y.o. female who presents for LT KNEE PAIN/SWELLING (On/off since November). HPI Left knee pain, above and below the knee, hard to get up and down stairs, no catch or click, feels tight, no laxity, hurts if twists the wrong way Review of Systems Musculoskeletal: Positive for arthralgias and joint swelling. Negative for gait problem. Objective BP 160/90 Pulse 62 Ht 1.676 m (5' 6) Wt 65 kg (143 lb 3.2 oz) SpO2 95% BMI 23.11 kg/m Physical Exam Vitals and nursing note reviewed. Constitutional: Appearance: Normal appearance. Musculoskeletal: Comments: Medial joint line tenderness of the left knee, minimal joint effusion palpated, normal range of motion without crepitus. No pain with valgus and varus stresses, negative anterior posterior drawer sign, negative Salima's testing, minimal pain on Alyssa grind, negative Apley's compression testing. Neurological: Mental Status: She is alert. Joint Injection Large/Arthrocentesis: L knee on 05/16/2025 5:08 PM Indications: pain Details: 25 G needle, anterolateral approach Medications: 40 mg triamcinolone acetonide 40 mg/mL Outcome: tolerated well, no immediate complications 2 cc 0.5% bupivacaine. Procedure, treatment alternatives, risks and benefits explained, specific risks discussed. Consent was given by the patient. Assessment/Plan Problem List Items Addressed This Visit None Visit Diagnoses Codes Chronic pain of left knee - Primary M25.562, G89.29 Recommend getting x-rays that were ordered by rheumatology, injection performed today, call with any problems. documented in this encounter [facility] Work Phone: 02-07-2025 History of Presen t illness Narrative Subjective Patient ID: Kim Rocha is a 79 y.o. female who presents for Follow-up (Pt presents today as a one year follow up for IBS. Pt states she's felt better since last visit, stating that's only had 12 flairs over the last year, and were almost always after having foods that didn't agree with her or went out to eat. ). HPI Kim is seen today in follow-up for diarrhea predominant IBS is doing well with Metamucil and as needed Bentyl. She states that she has more symptoms throughout the dinner with friends and seems that emotional stress and anxiety trigger more symptoms. Symptoms usually begin as cramping in her left lower quadrant followed by diarrhea as long she takes her Bentyl well before symptoms progress she is usually able to break at the diarrhea cycle. In last 12 months she has had approximately 12 episodes all minor and did not result in her having to cancel appointments. She does request referral to a new traffic control supervisor she is seeming to have less ability to interact with her current traffic control supervisor and wishes a second opinion regarding management of her rheumatoid arthritis long-term. Review of Systems Constitutional: Negative. HENT: Negative. Eyes: Negative. Respiratory: Negative. Cardiovascular: Negative. Gastrointestinal: Positive for abdominal pain and nausea. Endocrine: Negative. Genitourinary: Negative. Neurological: Negative. Hematological: Negative. Objective Physical Exam Constitutional: General: She is awake. Appearance: Normal appearance. HENT: Head: Normocephalic and atraumatic. Nose: Nose normal. Mouth/Throat: Mouth: Mucous membranes are moist. Eyes: Pupils: Pupils are equal, round, and reactive to light. Neck: Thyroid: No thyroid mass. Trachea: Phonation normal. Cardiovascular: Rate and Rhythm: Normal rate and regular rhythm. Heart sounds: Normal heart sounds. Pulmonary: Effort: Pulmonary effort is normal. No respiratory distress. Breath sounds: Normal air entry. No decreased breath sounds, wheezing, rhonchi or rales. Abdominal: General: Bowel sounds are normal. There is no distension. Palpations: Abdomen is soft. Tenderness: There is no abdominal tenderness. Musculoskeletal: Cervical back: Neck supple. Right lower leg: No edema. Left lower leg: No edema. Skin: General: Skin is warm. Capillary Refill: Capillary refill takes less than 2 seconds. Neurological: General: No focal deficit present. Mental Status: She is alert and oriented to person, place, and time. Mental status is at baseline. Cranial Nerves: Cranial nerves 2-12 are intact. Motor: Motor function is intact. Psychiatric: Attention and Perception: Attention and perception normal. Mood and Affect: Mood normal. Speech: Speech normal. Behavior: Behavior normal. Assessment/Plan Rogers Bradley DO 02/07/25 10:22 AM documented in this encounter [facility] Work Phone: 12-20-2024 Evaluation + Plan note Associated Problem(s): Rheumatoid arthritis Follows with rheumatology, maintained on methotrexate Orders: Follow Up In Primary Care - Established Follow Up In Primary Care - [facility]; Future [facility] Work Phone: 12-20-2024 Evaluation + Plan note Associated Problem(s): Hyperlipemia, mixed Orders: Follow Up In Primary Care - Established Follow Up In Primary [facility] - [facility]; Future [facility] Work Phone: 12-20-2024 Evaluation + Plan note Associated Problem(s): Pulmonary hypertension (Multi) Currently asymptomatic is seen cardiology in the past year, has no signs or symptoms of active issues. Orders: Follow Up In Primary Care - [facility] Follow Up In [facility]; Future [facility] Work Phone: 12-20-2024 Evaluation + Plan note Associated Problem(s): Vitamin B12 deficiency Will check B12 levels. Orders: Follow Up In Primary [facility] Follow Up In [facility]; Future CBC and Auto Differential; Future Vitamin B12; Future [facility] Work Phone: 12-20-2024 Evaluation + Plan note Associated Problem(s): Irritable bowel syndrome (IBS) Uses dicyclomine very infrequently, does seem to help when used. Orders: Follow Up In Primary Care [facility] dicyclomine (Bentyl) 10 mg capsule; Take 1 capsule (10 mg) by mouth 4 times a day. Follow Up In Primary [facility]; Future [facility] Work Phone: 12-20-2024 History of Presen t illness Narrative Subjective Reason for Visit: Kim Rocha is an 79 y.o. female here for a Medicare Wellness visit. Past Medical, Surgical, and Family History reviewed and updated in chart. Reviewed all medications by prescribing practitioner or clinical pharmacist (such as prescriptions, OTCs, herbal therapies and supplements) and documented in the medical record. HPI Sees rheumatology No headache, chest pain, shortness of breath, dizziness, lightheadedness, or edema Sees rheumatology for RA, last seen in September Left leg pain, tries to do HEP, pain radiates to foot No swelling, N/T in leg, hurts more at night, no issues when active Gets leg cramps at times No GI issues, some LLQ pain after eating, uses Bentyl as needed Uses meloxicam rarely Patient Care Team: Akanksha Millan MD as PCP - General (Family Medicine) Akanksha Millan MD as PCP - [employer] Medicare Advantage PCP Review of Systems Constitutional: Negative for activity change, appetite change, fatigue and unexpected weight change. HENT: Negative for ear pain, nosebleeds, rhinorrhea, sneezing and trouble swallowing. Respiratory: Negative for cough, shortness of breath and wheezing. Cardiovascular: Negative for chest pain, palpitations and leg swelling. Gastrointestinal: Negative for abdominal distention, abdominal pain, constipation, diarrhea, nausea and vomiting. Genitourinary: Negative for difficulty urinating. Musculoskeletal: Negative for arthralgias and gait problem. Skin: Negative for rash. Neurological: Positive for numbness. Negative for dizziness, weakness, light-headedness and headaches. Hematological: Negative for adenopathy. Psychiatric/Behavioral: Negative for behavioral problems, dysphoric mood and sleep disturbance. The patient is not nervous/anxious. All other systems reviewed and are negative. Objective Vitals: BP 120/70 Pulse 62 Ht 1.676 m (5' 6) Wt 64.3 kg (141 lb 12.8 oz) SpO2 98% BMI 22.89 kg/m Physical Exam Vitals and nursing note reviewed. Constitutional: General: She is not in acute distress. Appearance: Normal appearance. She is not toxic-appearing. HENT: Head: Normocephalic and atraumatic. Right Ear: Tympanic membrane, ear canal and external ear normal. Left Ear: Tympanic membrane, ear canal and external ear normal. Nose: Nose normal. Mouth/Throat: Mouth: Mucous membranes are moist. Pharynx: Oropharynx is clear. Eyes: Extraocular Movements: Extraocular movements intact. Conjunctiva/sclera: Conjunctivae normal. Pupils: Pupils are equal, round, and reactive to light. Cardiovascular: Rate and Rhythm: Normal rate and regular rhythm. Pulses: Normal pulses. Heart sounds: Normal heart sounds. Pulmonary: Effort: Pulmonary effort is normal. Breath sounds: Normal breath sounds. Abdominal: General: Abdomen is flat. Bowel sounds are normal. Palpations: Abdomen is soft. Musculoskeletal: Cervical back: Normal range of motion and neck supple. Comments: Back is nontender to palpation, normal lower extremity strength and reflexes, negative straight leg raise. Normal distal pulses the ankle, no swelling noted. Skin: General: Skin is warm and dry. Capillary Refill: Capillary refill takes less than 2 seconds. Neurological: General: No focal deficit present. Mental Status: She is alert and oriented to person, place, and time. Mental status is at baseline. Psychiatric: Mood and Affect: Mood normal. Behavior: Behavior normal. Assessment & Plan Encounter for screening, unspecified Orders: CBC and Auto Differential; Future Follow Up In Primary Care [facility]; Future Rheumatoid arthritis with negative rheumatoid factor, involving unspecified site (Multi) Follows with rheumatology, maintained on methotrexate Orders: Follow Up In [facility] Follow Up In [facility]; Future Fatigue, unspecified type Orders: Follow Up In Primary [facility] Follow Up In [facility]; Future TSH with reflex to Free T4 if abnormal; Future Sedimentation Rate; Future C-Reactive Protein; Future Routine general medical examination at health care facility Orders: Follow Up In [facility] Follow Up In [facility]; Future Hyperlipemia, mixed Orders: Follow Up In Primary Care [facility] Follow Up In [facility]; Future Pulmonary hypertension (Multi) Currently asymptomatic is seen cardiology in the past year, has no signs or symptoms of active issues. Orders: Follow Up In [facility] Follow Up In [facility]; Future Vitamin B12 deficiency Will check B12 levels. Orders: Follow Up In Primary [facility] Follow Up In [facility]; Future CBC and Auto Differential; Future Vitamin B12; Future Irritable bowel syndrome, unspecified type Uses dicyclomine very infrequently, does seem to help when used. Orders: Follow Up In Primary Care - Established dicyclomine (Bentyl) 10 mg capsule; Take 1 capsule (10 mg) by mouth 4 times a day. Follow Up In Primary Care - Established; Future Renal insufficiency Check additional labs. Orders: Follow Up In Primary Care - Established; Future CBC and Auto Differential; Future Comprehensive Metabolic Panel; Future Left leg pain Will check x-ray of the lumbar spine, advised about stretching and range of motion. Orders: Follow Up In Primary Care - Established; Future XR lumbar spine 2-3 views; Future documented in this encounter [facility] Work Phone: 12-20-2024 Instructions Akanksha Millan MD - 12/20/2024 10:00 AM EDT It is OK to use some magnesium supplement, get blood testing today and x-ray documented in this encounter [facility] Work Phone: 12-20-2024 Miscellaneous Notes Please send a copy of this patient's lab work that was done on 01 May to the patient's traffic control supervisor. Please also let the patient know that her blood testing looks good, hemoglobin is stable, platelets are normal, liver function testing is also back to normal and inflammation markers are normal. Associated Problem(s): Rheumatoid arthritis Follows with rheumatology, maintained on methotrexate Orders: Follow Up In Primary Care - Established Follow Up In Primary Care - Established; Future Associated Problem(s): Hyperlipemia, mixed Orders: Follow Up In Primary Care - [facility] Follow Up In Primary Care [facility]; Future Associated Problem(s): Pulmonary hypertension (Multi) Currently asymptomatic is seen cardiology in the past year, has no signs or symptoms of active issues. Orders: Follow Up In Primary Care - [facility] Follow Up In [facility] Care [facility]; Future Associated Problem(s): Vitamin B12 deficiency Will check B12 levels. Orders: Follow Up In Primary Care - [facility] Follow Up In Primary [facility]; Future CBC and Auto Differential; Future Vitamin B12; Future Associated Problem(s): Irritable bowel syndrome (IBS) Uses dicyclomine very infrequently, does seem to help when used. Orders: Follow Up In Primary Care Established dicyclomine (Bentyl) 10 mg capsule; Take 1 capsule (10 mg) by mouth 4 times a day. Follow Up In Primary Care [facility]; Future documented in this encounter [facility] Work Phone: 12-20-2024 Progress note Formatting of t his note might be different from the original. Please send a copy of this patient's lab work that was done on 01 May to the patient's traffic control supervisor. Please also let the patient know that her blood testing looks good, hemoglobin is stable, platelets are normal, liver function testing is also back to normal and inflammation markers are normal. [facility] Work Phone: 12-20-2024 Reason for visit Narrative Specialty Diagnoses / Procedures Referred By Contac t Referred To Contact Radiology Diagnoses Left leg pain Procedures XR lumbar spine 2-3 views Akanksha Millan MD [facility] [place] [address] Phone: tel: fax: Referral ID Status Reason Start Date Expiration Date Visits Requested Visits Authorized [id number] Authorized Perform Procedure 12/20/2024 12/20/2025 1 1 [facility] Work Phone: 1(107) 853-121801-31-2025 Evaluation + Plan note* Assessment & Plan Note - Aileen Shoemaker DO - 10/26/2024 10:41 AM ESTAssociated Problem(s): Breast asymmetry -She has a breast size discrepancy with a feeling of heaviness in the right breast. It is uncertainas to whether this is new or not but with her other associated symptoms I decided to err on the side of caution and send her for bilateral diagnostic mammograms -Once the results are known we will contact her [facility] Work Phone: [phone]) 635-899501-31-2025 Miscellaneous Notes* Assessment & Plan Note - Aileen Shoemaker DO - 10/26/2024 10:41 AM ESTAssociated Problem(s): Breast asymmetry -She has a breast size discrepancy with a feeling of heaviness in the right breast. It is uncertainas to whether this is new or not but with her other associated symptoms I decided to err on the side of caution and send her for bilateral diagnostic mammograms -Once the results are known we will contact her documented in this [facility] Work Phone: 1(843) 502-648201-31-2025 History of Present illness Narrative* Aileen Shoemaker DO - 10/26/2024 10:20 AM EST Subjective Patient ID: Kim Rocha is a 79 y.o. female who presents for Breast Problem (RIGHT BREAST LARGER). Breast Problem She is here today for evaluation of her breast. She explains that recently she realized that her right breast seemed larger than her left. She also states that her right breast is feeling heavier than the left in recent times. She is uncertain as to whether this has always been that way. She also has been having some nipple itching and some slight discomfort in her breasts. She denies any rashes or nipple discharge. She does go every year for her screening mammogram and is due for her next examin January. On today's examination I did not feel any discrete masses although she does have a fibroglandular texture. I do not see any skin changes but she does have what appears to be some eczematous changes on the tips of both of her nipples. She did not have any nipple discharge. She is tender to touch. We discussed how women can have asymmetrical breast sizes which is typically normal but since she feels like this may be new and she is having the other symptoms, I have decided to err on the side of caution and I will order a diagnostic mammogram. As soon as the results are known we will contact her. Otherwise she is encouraged to keep her routine follow-up visit with Dr. Millan. Objective Physical Exam Vitals and nursing note reviewed. Constitutional: General: She is not in acute distress. Appearance: Normal appearance. HENT: Head: Normocephalic and atraumatic. Eyes: Conjunctiva/sclera: Conjunctivae normal. Cardiovascular: Rate and Rhythm: Normal rate and regular rhythm. Heart sounds: Normal heart sounds. Pulmonary: Effort: No respiratory distress. Breath sounds: No wheezing. Chest: Chest wall: Tenderness present. No mass. Abdominal: Palpations: Abdomen is soft. Tenderness: There is no abdominal tenderness. There is no guarding. Musculoskeletal: General: No swelling. Normal range of motion. Skin: General: Skin is warm and dry. Neurological: General: No focal deficit present. Mental Status: She is alert and oriented to person, place, and time. Psychiatric: Behavior: Behavior normal. Assessment/Plan Problem List Items Addressed This Visit ICD-10-CM Breast asymmetry - Primary N64.89 -She has a breast size discrepancy with a feeling of heaviness in the right breast. It is uncertainas to whether this is new or not but with her other associated symptoms I decided to err on the side of caution and send her for bilateral diagnostic mammograms -Once the results are known we will contact her Relevant Orders BI mammo bilateral diagnostic tomosynthesis Patient instructions As we discussed because of your concerns today and some perceived physical changes as well as bilateral breast tenderness, I have decided to order diagnostic mammogram and you should be receiving a call from the office to get that scheduled. Once the results are known we will contact you. Please also remember to keep your regular visit with Dr. Millan and if you feel like your condition is worsening make an appointment to be seen sooner for follow-up Aileen Shoemaker DO documented in this [facility] Work Phone: [phone] Instructions* Patient Instructions* Aileen Shoemaker DO - 10/26/2024 10:20 AM EST Patient instructions As we discussed because of your concerns today and some perceived physical changes as well as bilateral breast tenderness, I have decided to order diagnostic mammogram and you should be receiving a call from the office to get that scheduled. Once the results are known we will contact you. Please also remember to keep your regular visit with Dr. Millan and if you feel like your condition is worsening make an appointment to be seen sooner for follow-up [facility] Phone: [phone] History of Present illness Narrative* Milan Reid MD - 08/16/2024 11:15 AM EST Cardiology Subsequent Encounter Clinic Note Name: Kim Rocha : 1945 CC: Syncope Active Issues: Kim Rocha is a 79 y.o. female with a medical history of [...] appeared to be monomorphic -Denies any palpitations. Since her last visit she denies any change in her symptoms. However she was diagnosed with Lyme's disease and has completed a course of antibiotics. Past Medical History Past Medical History: Diagnosis [...] tablet (81 mg) by mouth once daily. Ca-D3-mag pq-ycnn-wfe-nicole-bor 600 mg calcium- 20 mcg-50 mg tablet Take 1 tablet by mouth in the morning and at bedtime. folic acid (Folvite) 1 mg tablet Take 2 tablets (2 mg) by mouth once daily. Take with methotrexate hydroxychloroquine (Plaquenil) 200 mg tablet Take 1 tablet (200 mg) by mouth 2 times a day. L. acidophilus/Bifid. animalis 32 billion cell capsule Take by mouth. meloxicam (Mobic) 15 mg tablet Take 0.5 tablets (7.5 mg) by mouth if needed. methotrexate (Trexall) 2.5 mg tablet Take 5 tablets (12.5 mg total) by mouth 1 (one) time per week.Follow directions carefully, and ask to explain any part you do not understand. Take exactly as directed. Take with folic acid. metoprolol tartrate (Lopressor) 25 mg tablet Take 1 tablet (25 mg) by mouth 2 times a day. 180 tablet 3 multivitamin tablet Take 1 tablet by mouth once daily. psyllium (Metamucil) 0.4 gram capsule Take 5 capsules by mouth 2 times a day. Drink with 8 oz water(=1 tsp powder in 8 oz liquid) pyridoxine (Vitamin B-6) 100 mg tablet Take 1 tablet (100 mg) by mouth once daily. vitamin E acid succinate (vitamin E succinate) 268 mg (400 unit) tablet Take 2 tablets by mouth 1 (one) time each day. No current facility-administered medications on file prior to visit. Allergies Allergies Allergen Reactions Diclofenac Other NAUSEA AND VOMITING Hydrocodone-Acetaminophen Hallucinations Tramadol Other NAUSEA AND VOMITING Amoxicillin Rash Amoxicillin-Pot Clavulanate Rash Social History Social History Tobacco Use Smoking status: Never Passive exposure: Never Smokeless tobacco: Never Vaping Use Vaping status: Never Used Substance Use Topics Alcohol use: Not Currently Drug use: Never Family History Family History Problem Relation Name Age of Onset Heart failure Mother Hypertension Mother Heart failure Father Hypertension Father Heart attack Brother Coronary artery disease Brother Physical Examination Vitals: BP 142/66 Pulse 59 Ht 1.676 m (5' 6) Wt 62.6 kg (138 lb) SpO2 98% BMI 22.27 kg/m General: awake, alert and oriented. No acute distress. Skin: Skin is warm, dry and intact without rashes or lesions. Appropriate color for ethnicity. Nailbeds pink with no cyanosis or clubbing HEENT: normocephalic, atraumatic; conjunctivae are clear without exudates or hemorrhage. Sclera is non-icteric. Eyelids are normal in appearance without swelling or lesions. Hearing intact. Nares arepatent bilaterally. Moist mucous membranes. Cardiovascular: Regular. No [...] Labs/Imaging/Procedures Lab Results Component Value Date HGB 11.7 (L) 05/01/2024 HGB 11.5 (L) 03/28/2024 HGB 11.6 (L) 03/27/2024 PLT 172 05/01/2024 WBC 4.8 05/01/2024 NA 138 05/01/2024 K 4.3 05/01/2024 CREATININE 0.89 05/01/2024 CREATININE 0.79 03/28/2024 CREATININE 0.88 03/27/2024 BUN 28 (H) 05/01/2024 CALCIUM 9.7 05/01/2024 INR 1.0 03/28/2024 Transthoracic Echo (TTE) Complete Result Date: 09/06/2023 [place] [address] [phone], TRANSTHORACIC ECHOCARDIOGRAM REPORT Patient Name: KIM De Luna Physician: [id number] Reid MD Study Date: 09/06/2023 Ordering Provider: [id number] REID MRN/PID: [id number] Fellow: Nurse: Sweta Mcmahan RN Date of 1945 Senior Product Development Scientist: Tommie Marcos RDCS /Age: years Gender: F Additional Staff: Height: 167.64 cm Admit Date: Weight: 63.96 kg Admission Status: Outpatient BSA: 1.72 m2 Department [facility] Echo Lab Location: Blood Pressure: 174/102 mmHg Study Type: TRANSTHORACIC ECHO (TTE) COMPLETE Diagnosis/ICD: Syncope-R55 CPT Codes: Echo Complete w Full Doppler-[id number] Study Detail: The following Echo studies were [...] a normal pattern of left ventricular diastolic filling.Left Atrium: The left atrium is normal in size. A bubble study using agitated saline was performed.Bubble study is negative. Right Ventricle: The right ventricle is normal in size. There is normal right ventricular global systolic function. Right Atrium: The right atrium is normal in size. Aortic Valve: The aortic valve is trileaflet. There is no evidence of aortic valve regurgitation. The peak instantaneous gradient of the aortic valve is 6.0 mmHg. The mean gradient of the aortic valve is 3.0mmHg. Mitral Valve: The mitral valve is normal [...] prior echocardiogram dated January 27, 2021: Ejection fracti on is unchanged. QUANTITATIVE DATA SUMMARY: 2D MEASUREMENTS: Normal Ranges: Ao Root d: 2.60 cm (2.0-3.7cm) LAs: 2.90 cm (2.7-4.0cm) IVSd: 0.88 cm (0.6-1.1cm) LVPWd: 0.78 cm (0.6-1.1cm) LVIDd: 4.46 cm(3.9-5.9cm) LVIDs: 3.00 cm LV Mass Index: 68.0 g/m2 LV % FS 32.7 % LA VOLUME: Normal Ranges: LA VolA4C: 41.2 ml (22+/-6mL/m2) LA Vol A2C: 28.5 ml LA Vol BP: 35.8 ml LA Vol Index A4C: 23.9ml/m2 LA Vol Index A2C: 16.5 ml/m2 LA Vol Index BP: 20.8 ml/m2 LA Area A4C: 15.6 cm2 LA Area A2C: 12.4 cm2 LA Major Rociada A4C: 5.0 cm LA Major Rociada A2C: 4.6 cm LA Volume Index: 23.5 ml/m2 LA Vol A4C: 40.4 ml LA Vol A2C: 27.5 ml LV SYSTOLIC FUNCTION BY 2D PLANIMETRY (MOD): Normal Ranges: EF-A4C View: 64.4 % (>=55%) EF- A2C View: 61.1 % EF-Biplane: 63.2 % LV [...] P.0 mmHg (<20mmHg) AoV Mean P.0 mmHg (1.7- 11.5mmHg) LVOT Max Hardeep: 1.00 m/s (<=1.1m/s) AoV VTI: 29.90 cm (18-25cm) LVOT VTI: 20.70 cmLVOT Diameter: 1.90 cm (1.8-2.4cm) AoV Area, VTI: 1.96 cm2 (2.5- 5.5cm2) AoV Area,Vmax: 2.32 cm2 (2.5-4.5cm2) AoV Dimensionless Index: 0.69 RIGHT VENTRICLE: RV Basal 3.75 cm RV Mid 2.65 cm RV Major 7.8 cm TAPSE: 22.7 mm RV s' 0.13 m/s [id number] Milan Reid MD Electronically signed on 09/06/2023 at 12 :43:19 PM Final ECG 12 lead Sinus rhythm with Premature atrial complexes Right bundle branch block Septal infarct (cited on or before 26-AUG-2022) Abnormal ECG When compared with ECG of 26-AUG-2022 11:20, (unconfirmed) Premature atrial complexes are now Present Right bundle branch block is now Present Questionable change in initial forces of Septal leads See ED provider note for full interpretation and clinical correlation Confirmed by Dawson Castorena ([id number]) on 04/05/2024 8:44:00 PM Impression Kim Rocha is a 79 y.o. female with a medical history of hyperlipidemia, presents with the following complaints Problem #1 pulmonary hypertension has noticed on her echocardiogram -Patient's echocardiogram done 01/30/2020 was significant for normal left ventricular systolic function; and a calculated PASP of 40 mmHg. -Patient likely has some group 2 pulmonary hypertension possibly related to age- related left heart disease (diastolic dysfunction). But however in the absence of symptoms no indication for further evaluation or treatment at this time. Problem #2 nonsustained ventricular tachycardia noted on her event monitor -Continue Lopressor. -No further evaluation required at this point. Plan: -With new diagnosis of Lyme's disease will repeat an event monitor to rule out underlying conduction disease -Repeat echocardiogram -If the above are stable RTC 1 year Milan Reid MD Advanced Heart Failure/Transplant Cardiology Cardio-Oncology [facility] documented in this [facility] Work Phone: [phone] Evaluation + Plan note* Assessment & Plan Note - Akanksha Millan MD - 04/10/2024 5:48 PM EDTAssociated Problem(s): Acute Lyme disease Lyme testing positive, IgM markedly positive, IgG is beginning to be positive. Patient signs and symptoms including neck and back pain, muscle aches and pains including fevers and chills at the beginning could easily be explained by Lyme disease. Will start the patient on doxycycline 100 mg 1 p.o. 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 Will recheck again in 3 weeks. [facility] Work Phone: [phone]) [phone] Miscellaneous Notes* Assessment & Plan Note - Akanksha Millan MD - 04/10/2024 5:48 PM EDTAssociated Problem(s): Acute Lyme disease Lyme testing positive, IgM markedly positive, IgG is beginning to be positive. Patient signs and symptoms including neck and back pain, muscle aches and pains including fevers and chills at the beginning could easily be explained by Lyme disease. Will start the patient on doxycycline 100 mg 1 p.o. 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 Will recheck again in 3 weeks. [facility] Work Phone: [phone] History of Present illness Narrative* Akanksha Millan MD - 04/10/2024 4:20 PM EDT Subjective Patient ID: Kim Rocha is a 78 y.o. female who presents for ER F/U Neck PAIN. HPI Was at hospital at [facility] 04/05 for LBP (arthritis in spine) Review of Systems Constitutional: Positive for fatigue. Negative for activity change, appetite change, chills, fever and unexpected weight change. HENT: Negative for congestion, ear pain, nosebleeds, rhinorrhea, sneezing and trouble swallowing. Respiratory: Negative for cough, shortness of breath and wheezing. Cardiovascular: Negative for chest pain, palpitations and leg swelling. Gastrointestinal: Negative for abdominal distention, abdominal pain, constipation, diarrhea, nauseaand vomiting. Genitourinary: Negative for difficulty urinating. Musculoskeletal: Positive for arthralgias, back pain and neck pain. Negative for gait problem and neck stiffness. Skin: Negative for rash. Neurological: Negative for dizziness, tremors, seizures, weakness, light- headedness, numbness and headaches. Hematological: Negative for adenopathy. Psychiatric/Behavioral: Negative for behavioral problems, dysphoric mood and sleep disturbance. Thepatient is not nervous/anxious. All other systems reviewed and are negative. Objective BP 130/80 Pulse 73 Ht 1.676 m (5' 6) Wt 62 kg (136 lb 9.6 oz) SpO2 99% BMI 22.05 kg/m Physical Exam Vitals and nursing note reviewed. Constitutional: Appearance: Normal appearance. HENT: Head: Normocephalic and atraumatic. Right Ear: Tympanic membrane, ear canal and external ear normal. Left Ear: Tympanic membrane, ear canal and external ear normal. Nose: Nose normal. Mouth/Throat: Mouth: Mucous membranes are moist. Pharynx: Oropharynx is clear. Cardiovascular: Rate and Rhythm: Normal rate and regular rhythm. Pulses: Normal pulses. Heart sounds: Normal heart sounds. Pulmonary: Effort: Pulmonary effort is normal. Breath sounds: Normal breath sounds. Musculoskeletal: General: Normal range of motion. Cervical back: Normal range of motion and neck supple. Neurological: General: No focal deficit present. Mental Status: She is alert and oriented to person, place, and time. Mental status is at baseline. Cranial Nerves: No cranial nerve deficit. Psychiatric: Mood and Affect: Mood normal. Behavior: Behavior normal. Assessment/Plan Problem List Items Addressed This Visit ICD-10-CM Osteoarthritis M19.90 Relevant Medications oxyCODONE-acetaminophen (Percocet) 5-325 mg tablet Acute Lyme disease - Primary A69.20 Lyme testing positive, IgM markedly positive, IgG is beginning to be positive. Patient signs and symptoms including neck and back pain, muscle aches and pains including fevers and chills at the beginning could easily be explained by Lyme disease. Will start the patient on doxycycline 100 mg 1 p.o. 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 Will recheck again in 3 weeks. Relevant Medications doxycycline (Vibramycin) 100 mg capsule oxyCODONE-acetaminophen (Percocet) 5-325 mg tablet Other Relevant Orders Follow Up In Primary Care - Established [facility] Work Phone: 1([phone]) 189-363507-03-2024 Hospital Discharge instructions* Discharge Instructions* Lorenza Carver MD - 03/28/2024 1:38 PM EDT CONTINUE TYLENOL AND NAPROSYN FOR PAIN ICE TO NECK PREDNISONE FOR INFLAMMATION CO-ORDINATE PAIN TREATMENT WITH RHEUMATOLOGY/PAIN MANAGEMENT DO NOT DRINK PLAIN WATER/ USE ELECTROLYTE SOLUTION * Attachments The following attachments cannot be sent through Care Everywhere. * Radiculopathy Discharge Instructions (Indonesian) * Rheumatoid Arthritis Discharge Instructions (Indonesian) documented [facility] Work Phone: 1([phone]) 654-594907-03-2024 Emergency department Note* Lorenza Carver MD - 03/28/2024 10:43 AM EDT Chief Complaint: LOW SODIUM LEVEL This is a 78-year-old female who presents was referred by Dr. Millan her primary care physician for hyponatremia. Apparently her sodium level was 127 last week 5 days ago it was 131. She states one of her physicians told her that her kidneys were dry that she should drink a lot of fluid and she has been drinking at least 8 full glasses of water daily without any electrolyte solution added to those.She suffers from chronic pain has been on Plaquenil methotrexate for the pain from the arthritis inthe past apparently had some issues with low platelet counts. And elevated liver function testing. Those have subsequently resolved as she is off the Plaquenil and methotrexate currently she is givena muscle relaxer for leg cramps and Dr. Millan thought it was related to the sodium level being low her potassium was normal. Presents now for rehydration of her hyponatremia. His white blood count was5.2 with an H&H 11 and 34.8. Function test was normal metabolic panel shows sodium back up to 131. Her phosphorus was normal her urinalysis was clear. He received 1 L of normal saline as well as p rednisone 60 mg her cervical spine series showed degenerative changes with retrolisthesis of C5 on 4 6.. Her neck pain is mostly related to cervical radiculopathy most likely from her rheumatoid arthritis she is continue Tylenol and or Naprosyn and meloxicam. She was given prednisone here and will get be given a prednisone tapering dose. She is to coordinate her care between Dr. Millan her primary care physician her traffic control supervisor and pain management referral Review of Systems Constitutional: Positive for fatigue. Negative for chills and fever. HENT: Negative. Eyes: Negative for photophobia and redness. Respiratory: Negative for cough and chest tightness. Cardiovascular: Negative for chest pain, palpitations and leg swelling. Gastrointestinal: Negative for abdominal pain, nausea and vomiting. Genitourinary: Negative for dysuria and flank pain. Musculoskeletal: Positive for arthralgias, myalgias, neck pain and neck stiffness. Skin: Negative for rash. Neurological: Positive for weakness. Negative for dizziness and light-headedness. Hematological: Negative. Psychiatric/Behavioral: Negative. All other systems reviewed and are negative. Physical Exam Constitutional: General: She is not in acute distress. Appearance: She is normal weight. She is not ill-appearing or toxic-appearing. Comments: Is oriented x 3 very talkative in no acute discomfort currently HENT: Head: Normocephalic and atraumatic. Nose: Nose normal. No congestion or rhinorrhea. Mouth/Throat: Mouth: Mucous membranes are dry. Pharynx: No oropharyngeal exudate or posterior oropharyngeal erythema. Eyes: Extraocular Movements: Extraocular movements intact. Pupils: Pupils are equal, round, and reactive to light. Cardiovascular: Rate and Rhythm: Normal rate. Pulses: Normal pulses. Heart sounds: No murmur heard. Pulmonary: Effort: Pulmonary effort is normal. No respiratory distress. Breath sounds: No wheezing or rhonchi. Abdominal: General: Abdomen is flat. Palpations: Abdomen is soft. Tenderness: There is no abdominal tenderness. Musculoskeletal: General: Normal range of motion. Cervical back: Normal range of motion and neck supple. Tenderness present. No rigidity. Right lower leg: No edema. Left lower leg: No edema. Lymphadenopathy: Cervical: No cervical adenopathy. Skin: General: Skin is warm and dry. Capillary Refill: Capillary refill takes less than 2 seconds. Findings: No erythema or rash. Neurological: General: No focal deficit present. Mental Status: She is alert. Cranial Nerves: No cranial nerve deficit. Motor: No weakness. Psychiatric: Mood and Affect: Mood normal. Behavior: Behavior normal. Labs Reviewed CBC WITH AUTO DIFFERENTIAL - Abnormal Result Value WBC 5.2 nRBC 0.0 RBC 3.74 (*) Hemoglobin 11.5 (*) Hematocrit 34.8 (*) MCV 93 MCH 30.7 MCHC 33.0 RDW 14.5 Platelets 226 Neutrophils % 84.1 Immature Granulocytes %, Automated 0.2 Lymphocytes % 9.2 Monocytes % 4.4 Eosinophils % 1.7 Basophils % 0.4 Neutrophils Absolute 4.39 Immature Granulocytes Absolute, Automated 0.01 Lymphocytes Absolute 0.48 (*) Monocytes Absolute 0.23 Eosinophils Absolute 0.09 Basophils Absolute 0.02 BASIC METABOLIC PANEL - Abnormal Glucose 95 Sodium 131 (*) Potassium 4.3 Chloride 98 Bicarbonate 28 Anion Gap 9 (*) Urea Nitrogen 15 Creatinine 0.79 eGFR 77 Calcium 8.9 URINALYSIS WITH REFLEX CULTURE AND MICROSCOPIC - Abnormal Color, Urine Colorless (*) Appearance, Urine Clear Specific Humphrey, Urine 1.008 pH, Urine 7.0 Protein, Urine NEGATIVE Glucose, Urine Normal Blood, Urine NEGATIVE Ketones, Urine NEGATIVE Bilirubin, Urine NEGATIVE Urobilinogen, Urine Normal Nitrite, Urine NEGATIVE Leukocyte Esterase, Urine NEGATIVE PHOSPHORUS - Normal Phosphorus 3.4 MAGNESIUM - Normal Magnesium 2.02 LIPASE - Normal Lipase 48 Narrative: Venipuncture immediately after or during the administration of Metamizole may lead to falsely low results. Testing should be performed immediately prior to Metamizole dosing. HEPATIC FUNCTION PANEL - Normal Albumin 4.0 Bilirubin, Total 0.6 Bilirubin, Direct 0.1 Alkaline Phosphatase 77 ALT 31 AST 33 Total Protein 7.0 PROTIME-INR - Normal Protime 11.6 INR 1.0 APTT - Normal aPTT 29 Narrative: The APTT is no longer used for monitoring Unfractionated Heparin Therapy. For monitoring Heparin Therapy, use the Heparin Assay. URINALYSIS WITH REFLEX CULTURE AND MICROSCOPIC Narrative: The following orders were created for panel order Urinalysis with Reflex Culture and Microscopic. Procedure Abnormality Status --------- ------ Urinalysis with Reflex C...[[id number]] Abnormal Final result Extra Urine Douglas Tube[[id number]] In process Please view results for these tests on the individual orders. EXTRA URINE DOUGLAS TUBE XR cervical spine 2-3 views Final Result 1. Degenerative change with no acute bony abnormality. 2. 2 mm retrolisthesis of C5 with respect to C4 and C6. MACRO: None Signed by: Susy Nacne 03/28/2024 11:48 AM Dictation workstation: [id number] Procedures Medical Decision Making This patient's differential diagnosis include hyponatremia water intoxication renal dysfunction. Appropriate labs were ordered as well as normal saline bolus and normal saline infusion at this time Amount and/or Complexity of Data Reviewed ECG/medicine tests: independent interpretation performed. Details: Lead EKG showed sinus rhythm at 78/min occasional PACs right bundle branch block pattern and ossific ST-T changes as interpreted by myself the emergency physician right bundle branch block is new compared to EKG from August 2022. Septal abnormalities are unchanged Diagnoses as of 03/28/24 1341 Rheumatoid arthritis flare (Multi) Cervical radiculopathy Hyponatremia Water intoxication Lorenza Carver MD 03/28/24 1341 documented in this [facility] Work Phone: 1([phone]) 272-620007-03-2024 Physician Emergency department Note* Lorenza Carver MD - 03/28/2024 10:43 AM EDT Chief Complaint: LOW SODIUM LEVEL This is a 78-year-old female who presents was referred by Dr. Millan her primary care physician for hyponatremia. Apparently her sodium level was 127 last week 5 days ago it was 131. She states one of her physicians told her that her kidneys were dry that she should drink a lot of fluid and she has been drinking at least 8 full glasses of water daily without any electrolyte solution added to those.She suffers from chronic pain has been on Plaquenil methotrexate for the pain from the arthritis inthe past apparently had some issues with low platelet counts. And elevated liver function testing. Those have subsequently resolved as she is off the Plaquenil and methotrexate currently she is givena muscle relaxer for leg cramps and Dr. Millan thought it was related to the sodium level being low her potassium was normal. Presents now for rehydration of her hyponatremia. His white blood count was5.2 with an H&H 11 and 34.8. Function test was normal metabolic panel shows sodium back up to 131. Her phosphorus was normal her urinalysis was clear. He received 1 L of normal saline as well as p rednisone 60 mg her cervical spine series showed degenerative changes with retrolisthesis of C5 on 4 6.. Her neck pain is mostly related to cervical radiculopathy most likely from her rheumatoid arthritis she is continue Tylenol and or Naprosyn and meloxicam. She was given prednisone here and will get be given a prednisone tapering dose. She is to coordinate her care between Dr. Millan her primary care physician her traffic control supervisor and pain management referral Review of Systems Constitutional: Positive for fatigue. Negative for chills and fever. HENT: Negative. Eyes: Negative for photophobia and redness. Respiratory: Negative for cough and chest tightness. Cardiovascular: Negative for chest pain, palpitations and leg swelling. Gastrointestinal: Negative for abdominal pain, nausea and vomiting. Genitourinary: Negative for dysuria and flank pain. Musculoskeletal: Positive for arthralgias, myalgias, neck pain and neck stiffness. Skin: Negative for rash. Neurological: Positive for weakness. Negative for dizziness and light-headedness. Hematological: Negative. Psychiatric/Behavioral: Negative. All other systems reviewed and are negative. Physical Exam Constitutional: General: She is not in acute distress. Appearance: She is normal weight. She is not ill-appearing or toxic-appearing. Comments: Is oriented x 3 very talkative in no acute discomfort currently HENT: Head: Normocephalic and atraumatic. Nose: Nose normal. No congestion or rhinorrhea. Mouth/Throat: Mouth: Mucous membranes are dry. Pharynx: No oropharyngeal exudate or posterior oropharyngeal erythema. Eyes: Extraocular Movements: Extraocular movements intact. Pupils: Pupils are equal, round, and reactive to light. Cardiovascular: Rate and Rhythm: Normal rate. Pulses: Normal pulses. Heart sounds: No murmur heard. Pulmonary: Effort: Pulmonary effort is normal. No respiratory distress. Breath sounds: No wheezing or rhonchi. Abdominal: General: Abdomen is flat. Palpations: Abdomen is soft. Tenderness: There is no abdominal tenderness. Musculoskeletal: General: Normal range of motion. Cervical back: Normal range of motion and neck supple. Tenderness present. No rigidity. Right lower leg: No edema. Left lower leg: No edema. Lymphadenopathy: Cervical: No cervical adenopathy. Skin: General: Skin is warm and dry. Capillary Refill: Capillary refill takes less than 2 seconds. Findings: No erythema or rash. Neurological: General: No focal deficit present. Mental Status: She is alert. Cranial Nerves: No cranial nerve deficit. Motor: No weakness. Psychiatric: Mood and Affect: Mood normal. Behavior: Behavior normal. Labs Reviewed CBC WITH AUTO DIFFERENTIAL - Abnormal Result Value WBC 5.2 nRBC 0.0 RBC 3.74 (*) Hemoglobin 11.5 (*) Hematocrit 34.8 (*) MCV 93 MCH 30.7 MCHC 33.0 RDW 14.5 Platelets 226 Neutrophils % 84.1 Immature Granulocytes %, Automated 0.2 Lymphocytes % 9.2 Monocytes % 4.4 Eosinophils % 1.7 Basophils % 0.4 Neutrophils Absolute 4.39 Immature Granulocytes Absolute, Automated 0.01 Lymphocytes Absolute 0.48 (*) Monocytes Absolute 0.23 Eosinophils Absolute 0.09 Basophils Absolute 0.02 BASIC METABOLIC PANEL - Abnormal Glucose 95 Sodium 131 (*) Potassium 4.3 Chloride 98 Bicarbonate 28 Anion Gap 9 (*) Urea Nitrogen 15 Creatinine 0.79 eGFR 77 Calcium 8.9 URINALYSIS WITH REFLEX CULTURE AND MICROSCOPIC - Abnormal Color, Urine Colorless (*) Appearance, Urine Clear Specific Humphrey, Urine 1.008 pH, Urine 7.0 Protein, Urine NEGATIVE Glucose, Urine Normal Blood, Urine NEGATIVE Ketones, Urine NEGATIVE Bilirubin, Urine NEGATIVE Urobilinogen, Urine Normal Nitrite, Urine NEGATIVE Leukocyte Esterase, Urine NEGATIVE PHOSPHORUS - Normal Phosphorus 3.4 MAGNESIUM - Normal Magnesium 2.02 LIPASE - Normal Lipase 48 Narrative: Venipuncture immediately after or during the administration of Metamizole may lead to falsely low results. Testing should be performed immediately prior to Metamizole dosing. HEPATIC FUNCTION PANEL - Normal Albumin 4.0 Bilirubin, Total 0.6 Bilirubin, Direct 0.1 Alkaline Phosphatase 77 ALT 31 AST 33 Total Protein 7.0 PROTIME-INR - Normal Protime 11.6 INR 1.0 APTT - Normal aPTT 29 Narrative: The APTT is no longer used for monitoring Unfractionated Heparin Therapy. For monitoring Heparin Therapy, use the Heparin Assay. URINALYSIS WITH REFLEX CULTURE AND MICROSCOPIC Narrative: The following orders were created for panel order Urinalysis with Reflex Culture and Microscopic. Procedure Abnormality Status --------- ------ Urinalysis with Reflex C...[[id number]] Abnormal Final result Extra Urine Douglas Tube[[id number]] In process Please view results for these tests on the individual orders. EXTRA URINE DOUGLAS TUBE XR cervical spine 2-3 views Final Result 1. Degenerative change with no acute bony abnormality. 2. 2 mm retrolisthesis of C5 with respect to C4 and C6. MACRO: None Signed by: Susy Nance 03/28/2024 11:48 AM Dictation workstation: [id number] Procedures Medical Decision Making This patient's differential diagnosis include hyponatremia water intoxication renal dysfunction. Appropriate labs were ordered as well as normal saline bolus and normal saline infusion at this time Amount and/or Complexity of Data Reviewed ECG/medicine tests: independent interpretation performed. Details: Lead EKG showed sinus rhythm at 78/min occasional PACs right bundle branch block pattern and ossific ST-T changes as interpreted by myself the emergency physician right bundle branch block is new compared to EKG from August 2022. Septal abnormalities are unchanged Diagnoses as of 03/28/24 1341 Rheumatoid arthritis flare (Multi) Cervical radiculopathy Hyponatremia Water intoxication Lorenza Carver MD 03/28/24 1341 [facility] Work Phone: [phone] 435-586607-01-2024 History of Present illness Narrative* Akanksha Millan MD - 03/26/2024 4:20 PM EDT Subjective Patient ID: Kim Rocha is a 78 y.o. female who presents for Muscle PAIN BL LEGS. HPI Using APAP, helps with pain and had tried to use Prednisone (could not sleep) Pain in neck to right ankle, pain in right ear (sharp and stabbing pain), no pain in right arm Aching in legs at night, hard time sleeping, some sweating at night Nausea and headaches some better, no appetite (does not taste right) Review of Systems Constitutional: Positive for fatigue. Negative for activity change, appetite change, chills, fever and unexpected weight change. HENT: Negative for ear pain, nosebleeds, rhinorrhea, sneezing and trouble swallowing. Respiratory: Negative for cough, shortness of breath and wheezing. Cardiovascular: Negative for chest pain, palpitations and leg swelling. Gastrointestinal: Negative for abdominal distention, abdominal pain, constipation, diarrhea, nauseaand vomiting. Genitourinary: Negative for difficulty urinating. Musculoskeletal: Positive for arthralgias, myalgias and neck pain. Skin: Negative for rash. Neurological: Negative for dizziness, light-headedness, numbness and headaches. Hematological: Negative for adenopathy. Psychiatric/Behavioral: Negative for behavioral problems, dysphoric mood and sleep disturbance. Thepatient is not nervous/anxious. All other systems reviewed and are negative. Objective BP 140/78 Pulse 75 Ht 1.676 m (5' 6) Wt 63.1 kg (139 lb 3.2 oz) SpO2 98% BMI 22.47 kg/m Physical Exam Vitals and nursing note reviewed. Constitutional: Appearance: Normal appearance. HENT: Head: Normocephalic and atraumatic. Right Ear: Tympanic membrane, ear canal and external ear normal. Left Ear: Tympanic membrane, ear canal and external ear normal. Nose: Nose normal. Mouth/Throat: Mouth: Mucous membranes are moist. Pharynx: Oropharynx is clear. Cardiovascular: Rate and Rhythm: Normal rate and regular rhythm. Pulses: Normal pulses. Heart sounds: Normal heart sounds. Pulmonary: Effort: Pulmonary effort is normal. Breath sounds: Normal breath sounds. Musculoskeletal: Cervical back: Normal range of motion and neck supple. Neurological: Mental Status: She is alert. Psychiatric: Mood and Affect: Mood normal. Behavior: Behavior normal. Assessment/Plan Problem List Items Addressed This Visit None Visit Diagnoses Codes Viral illness - Primary B34.9 Gradually improving, liver function test returned to normal, continue with Tylenol, could supplement with a little Aleve at night. Relevant Medications cyclobenzaprine (Flexeril) 10 mg tablet Other Relevant Orders CBC and Auto Differential Comprehensive Metabolic Panel C-Reactive Protein Sedimentation Rate Ferritin LYME (B. BURGDORFERI) AB MODIFIED 2-TITER TESTING, WITH REFLEX TO IGM AND IGG BY ROCÍO Anemia, unspecified type D64.9 Check labs in the next 1 to 2 days. Relevant Medications cyclobenzaprine (Flexeril) 10 mg tablet Other Relevant Orders CBC and Auto Differential Comprehensive Metabolic Panel C-Reactive Protein Sedimentation Rate Ferritin LYME (B. BURGDORFERI) AB MODIFIED 2-TITER TESTING, WITH REFLEX TO IGM AND IGG BY ROCÍO Myalgia M79.10 Tylenol and as needed Aleve, recheck labs in the next 1 to 2 days, follow-up with traffic control supervisor. Relevant Medications cyclobenzaprine (Flexeril) 10 mg tablet Other Relevant Orders CBC and Auto Differential Comprehensive Metabolic Panel C-Reactive Protein Sedimentation Rate Ferritin LYME (B. BURGDORFERI) AB MODIFIED 2-TITER TESTING, WITH REFLEX TO IGM AND IGG BY ROCÍO documented [facility] [facility]: 1(275) [phone] Instructions* Patient Instructions* Akanksha Millan MD - 03/26/2024 4:20 PM EDT Use cyclobenzaprine at night before sleep, use tylenol up to 3000 mg a day, and try using 1-2 Aleveat night before sleep [facility]: 1([phone]) 950-215406-21-2024 Hospital Discharge instructions* Discharge Instructions* Ashley Miller MD - 03/16/2024 11:35 PM EDT Please feel free to return to the emergency department with any concerns. Your low platelets today are likely caused by a reagent in the collecting tube. [facility] [facility]: 1([phone]) 386-471506-21-2024 Emergency department Note* Ashley Miller MD - 03/16/2024 9:15 PM EDT Images from the original note were not included. 78-year-old female presents for evaluation after new onset thrombocytopenia. She had a syncopal episode 3 days ago and was seen at [facility]. She had a follow-up visit with her PCP Dr. Millan today and lab buddies were drawn and her platelets were 26. Reportedly 3 days ago during the syncope workup at [facility] her platelets were normal. She is otherwise essentially asymptomatic. She denies any bleeding. Review of Systems Physical Exam Vitals and nursing note reviewed. Constitutional: General: She is not in acute distress. Appearance: She is well-developed. HENT: Head: Normocephalic and atraumatic. Eyes: Conjunctiva/sclera: Conjunctivae normal. Cardiovascular: Rate and Rhythm: Normal rate and regular rhythm. Heart sounds: No murmur heard. Pulmonary: Effort: Pulmonary effort is normal. No respiratory distress. Breath sounds: Normal breath sounds. Abdominal: Palpations: Abdomen is soft. Tenderness: There is no abdominal tenderness. Musculoskeletal: General: No swelling. Cervical back: Neck supple. Skin: General: Skin is warm and dry. Capillary Refill: Capillary refill takes less than 2 seconds. Comments: Multiple areas of a macular rash which is blanchable on the lower extremities. She statesthat is fairly new. Nonpainful Neurological: Mental Status: She is alert. Psychiatric: Mood and Affect: Mood normal. Labs Reviewed CBC WITH AUTO DIFFERENTIAL - Abnormal Result Value WBC 7.2 nRBC 0.0 RBC 3.48 (*) Hemoglobin 10.6 (*) Hematocrit 32.3 (*) MCV 93 MCH 30.5 MCHC 32.8 RDW 14.6 (*) Platelets 174 Neutrophils % 71.7 Immature Granulocytes %, Automated 0.3 Lymphocytes % 18.7 Monocytes % 6.3 Eosinophils % 2.6 Basophils % 0.4 Neutrophils Absolute 5.14 Immature Granulocytes Absolute, Automated 0.02 Lymphocytes Absolute 1.34 Monocytes Absolute 0.45 Eosinophils Absolute 0.19 Basophils Absolute 0.03 COMPREHENSIVE METABOLIC PANEL - Abnormal Glucose 142 (*) Sodium 134 (*) Potassium 3.4 (*) Chloride 101 Bicarbonate 26 Anion Gap 10 Urea Nitrogen 20 Creatinine 0.91 eGFR 65 Calcium 8.6 Albumin 3.7 Alkaline Phosphatase 123 Total Protein 6.7 AST 89 (*) Bilirubin, Total 0.5 ALT 108 (*) SLIDE REQUEST MORPHOLOGY RBC Morphology See Below RBC Fragments Few Giant Platelets Few No orders to display Procedures Medical Decision Making 78-year-old female presents for evaluation after new onset thrombocytopenia. She had a syncopal episode 3 days ago and was seen at [facility]. She had a follow-up visit with her PCP Dr. Millan today and lab buddies were drawn and her platelets were 26. Reportedly 3 days ago during the syncope workup at [facility] her platelets were normal. She is otherwise essentially asymptomatic. She denies any bleeding. I was able to secure the labs from [facility]. The platelets were actually 104. Repeat platelets today in the ER were 174. She remains asymptomatic. Likely pseudothrombocytopenia and the patient can be discharged. I did give her 12 mg dexamethasone for her rash. DDx: ITP, TTP, pseudothrombocytopenia, HELLLP syndrome Diagnoses as of 03/16/242336 Pseudothrombocytopenia Ashley Miller MD 03/16/242336 documented in this [facility] Work Phone: [phone]) [phone] Physician Emergency department Note* Ashley Miller MD - 03/16/2024 9:15 PM EDT Images from the original note were not included. 78-year-old female presents for evaluation after new onset thrombocytopenia. She had a syncopal episode 3 days ago and was seen at [facility]. She had a follow-up visit with her PCP Dr. Millan today and lab buddies were drawn and her platelets were 26. Reportedly 3 days ago during the syncope workup at [facility] her platelets were normal. She is otherwise essentially asymptomatic. She denies any bleeding. Review of Systems Physical Exam Vitals and nursing note reviewed. Constitutional: General: She is not in acute distress. Appearance: She is well-developed. HENT: Head: Normocephalic and atraumatic. Eyes: Conjunctiva/sclera: Conjunctivae normal. Cardiovascular: Rate and Rhythm: Normal rate and regular rhythm. Heart sounds: No murmur heard. Pulmonary: Effort: Pulmonary effort is normal. No respiratory distress. Breath sounds: Normal breath sounds. Abdominal: Palpations: Abdomen is soft. Tenderness: There is no abdominal tenderness. Musculoskeletal: General: No swelling. Cervical back: Neck supple. Skin: General: Skin is warm and dry. Capillary Refill: Capillary refill takes less than 2 seconds. Comments: Multiple areas of a macular rash which is blanchable on the lower extremities. She statesthat is fairly new. Nonpainful Neurological: Mental Status: She is alert. Psychiatric: Mood and Affect: Mood normal. Labs Reviewed CBC WITH AUTO DIFFERENTIAL - Abnormal Result Value WBC 7.2 nRBC 0.0 RBC 3.48 (*) Hemoglobin 10.6 (*) Hematocrit 32.3 (*) MCV 93 MCH 30.5 MCHC 32.8 RDW 14.6 (*) Platelets 174 Neutrophils % 71.7 Immature Granulocytes %, Automated 0.3 Lymphocytes % 18.7 Monocytes % 6.3 Eosinophils % 2.6 Basophils % 0.4 Neutrophils Absolute 5.14 Immature Granulocytes Absolute, Automated 0.02 Lymphocytes Absolute 1.34 Monocytes Absolute 0.45 Eosinophils Absolute 0.19 Basophils Absolute 0.03 COMPREHENSIVE METABOLIC PANEL - Abnormal Glucose 142 (*) Sodium 134 (*) Potassium 3.4 (*) Chloride 101 Bicarbonate 26 Anion Gap 10 Urea Nitrogen 20 Creatinine 0.91 eGFR 65 Calcium 8.6 Albumin 3.7 Alkaline Phosphatase 123 Total Protein 6.7 AST 89 (*) Bilirubin, Total 0.5 ALT 108 (*) SLIDE REQUEST MORPHOLOGY RBC Morphology See Below RBC Fragments Few Giant Platelets Few No orders to display Procedures Medical Decision Making 78-year-old female presents for evaluation after new onset thrombocytopenia. She had a syncopal episode 3 days ago and was seen at [facility]. She had a follow-up visit with her PCP Dr. Millan today and lab buddies were drawn and her platelets were 26. Reportedly 3 days ago during the syncope workup at [facility] her platelets were normal. She is otherwise essentially asymptomatic. She denies any bleeding. I was able to secure the labs from [facility]. The platelets were actually 104. Repeat platelets today in the ER were 174. She remains asymptomatic. Likely pseudothrombocytopenia and the patient can be discharged. I did give her 12 mg dexamethasone for her rash. DDx: ITP, TTP, pseudothrombocytopenia, HELLLP syndrome Diagnoses as of 03/16/247 Pseudothrombocytopenia Ashley Miller MD 03/16/24 1626 [facility] Work Phone: [phone] History of Present illness Narrative* Akanksha Millan MD - 03/16/2024 1:40 PM EDT Subjective Patient ID: Kim Rocha is a 78 y.o. female who presents for ER F/U Fever/HIRSCH. HPI Was in ER 03/12 at [facility], was sick starting 03/10, had fevers and chills Passed out on toilet and later that evening at table Diagnosed with virus, continues with a headache, no fevers since, off balance and woozy feeling Pain around eyes and mosque area, gradually feeling better, dry mouth and nausea, had some emisses at start Has had prior vasovagal issues in the past (last one a year ago) Review of Systems Constitutional: Negative for activity change, appetite change, fatigue and unexpected weight change. HENT: Negative for ear pain, nosebleeds, rhinorrhea, sneezing and trouble swallowing. Respiratory: Negative for cough, shortness of breath and wheezing. Cardiovascular: Negative for chest pain, palpitations and leg swelling. Gastrointestinal: Negative for abdominal distention, abdominal pain, constipation, diarrhea, nauseaand vomiting. Genitourinary: Negative for difficulty urinating. Musculoskeletal: Negative for arthralgias. Skin: Negative for rash. Neurological: Negative for dizziness, light-headedness, numbness and headaches. Hematological: Negative for adenopathy. Psychiatric/Behavioral: Negative for behavioral problems. All other systems reviewed and are negative. Objective BP 110/60 Pulse 87 Ht 1.676 m (5' 6) Wt 63.7 kg (140 lb 8 oz) SpO2 97% BMI 22.68 kg/m Physical Exam Vitals and nursing note reviewed. Constitutional: Appearance: Normal appearance. HENT: Head: Normocephalic and atraumatic. Right Ear: Tympanic membrane, ear canal and external ear normal. Left Ear: Tympanic membrane, ear canal and external ear normal. Nose: Nose normal. Mouth/Throat: Mouth: Mucous membranes are moist. Pharynx: Oropharynx is clear. Cardiovascular: Rate and Rhythm: Normal rate and regular rhythm. Pulses: Normal pulses. Heart sounds: Normal heart sounds. Pulmonary: Effort: Pulmonary effort is normal. Breath sounds: Normal breath sounds. Abdominal: General: Abdomen is flat. Bowel sounds are normal. There is no distension. Palpations: Abdomen is soft. There is no mass. Tenderness: There is no abdominal tenderness. There is no guarding or rebound. Musculoskeletal: Cervical back: Normal range of motion and neck supple. Neurological: Mental Status: She is alert. Psychiatric: Mood and Affect: Mood normal. Behavior: Behavior normal. Assessment/Plan Problem List Items Addressed This Visit None Visit Diagnoses Codes Viral illness - Primary B34.9 Gradually improving, advised but novi-[id number], call if worse. Relevant Orders CBC and Auto Differential Elevated liver function tests R79.89 Recheck blood test increase fluids. Relevant Orders CBC and Auto Differential Comprehensive Metabolic Panel documented [facility] [facility]: [phone]) [phone] Instructions* Patient Instructions* Akanksha Millan MD - 03/16/2024 1:40 PM EDT Increase fluids, tylenol or ibuprofen as needed for pain documented in [facility] [place] Work [facility]: [phone] History of Present illness Narrative* Rgoers Bradley DO - 02/09/2024 10:30 AM EDT Subjective Patient ID: Kim Rocha is a [...] DO 02/09/24 10:48 AM documented in this [facility] [place] Work [facility]: [phone] Evaluation + Plan note* Assessment & Plan Note - Akanksha Millan MD - 12/20/2023 12:36 PM EDTAssociated Problem(s): Hematuria Urine recheck normal. [facility] Work Phone: [phone] Evaluation + Plan note* Assessment & Plan Note - Akanksha Millan MD - 12/20/2023 12:36 PM EDTAssociated Problem(s): Rheumatoid arthritis (CMS/HCC) Follows with traffic control supervisor on regular basis no longer on methotrexate due to concern about liver toxicity, joint pain seems to be stable currently rarely has to use prednisone. [facility] Work Phone: [phone] Miscellaneous Notes* Assessment & Plan Note - Akanksha Millan MD - 12/20/2023 12:36 PM EDTAssociated Problem(s): Hematuria Urine recheck normal. * Assessment & Plan Note - Akanksha Millan MD - 12/20/2023 12:36 PM EDT Associated Problem(s): Rheumatoid arthritis (CMS/HCC) Follows with traffic control supervisor on regular basis no longer on methotrexate due to concern about liver toxicity, joint pain seems to be stable currently rarely has to use prednisone. * Assessment & Plan Note - Akanksha Millan MD - 12/20/2023 12:35 PM EDT Associated Problem(s): Irritable bowel syndrome (IBS) Continue with fiber and as needed dicyclomine. * Assessment & Plan Note - Akanksha Millan MD - 12/20/2023 12:35 PM EDT Associated Problem(s): Vitamin B12 deficiency Continue with replacement. * Assessment & Plan Note - Akanksha Millan MD - 12/20/2023 12:35 PM EDT Associated Problem(s): Pulmonary hypertension (CMS/HCC) Echocardiogram done last year seem to be stable, he has no signs or symptoms of active issues, blood pressure under good control no evidence of peripheral edema or shortness of breath with exertion. documented in this [facility] Work Phone: [phone]) 605-248203-26-2024 Evaluation + Plan note* Assessment & Plan Note - Akanksha Millan MD - 12/20/2023 12:35 PM EDTAssociated Problem(s): Irritable bowel syndrome (IBS) Continue with fiber and as needed dicyclomine. [facility] Work Phone: [phone] Evaluation + Plan note* Assessment & Plan Note - Akanksha Millan MD - 12/20/2023 12:35 PM EDTAssociated Problem(s): Vitamin B12 deficiency Continue with replacement. [facility] Work Phone: [phone]) [phone] Evaluation + Plan note* Assessment & Plan Note - Akanksha Millan MD - 12/20/2023 12:35 PM EDTAssociated Problem(s): Pulmonary hypertension (CMS/HCC) Echocardiogram done last year seem to be stable, he has no signs or symptoms of active issues, blood pressure under good control no evidence of peripheral edema or shortness of breath with exertion. [facility] Work Phone: [phone]) [phone] History of Present illness Narrative* Akanksha Millan MD - 12/20/2023 9:20 AM EDT Subjective Reason for Visit: Kim Rocha is an 78 y.o. female here for a Medicare Wellness visit. Past Medical, Surgical, and Family History reviewed and updated in chart. Reviewed all medications by prescribing practitioner or clinical pharmacist (such as prescriptions,OTCs, herbal therapies and supplements) and documented in [...] 130/70 Pulse 61 Ht 1.676 m (5' 6) Wt 64.9 kg (143 lb) SpO2 97% [...] In Primary Care - Established Pulmonary hypertension ([facility]/HCC) Current Assessment & Plan Echocardiogram done last year seem to be stable, he has no signs or symptoms of active issues, blood pressure under good control no evidence of peripheral edema or shortness of breath with exertion. Relevant Orders Follow Up In Primary Care - Established Comprehensive Metabolic Panel Rheumatoid arthritis (CMS/HCC) Current Assessment & Plan Follows with traffic control supervisor on regular basis no longer on methotrexate [...] mammo bilateral screening tomosynthesis documented in this [facility] Work Phone: [phone] 676-890603-18-2024 History of Present illness Narrative* Leann Mckeon Prashanth, THOM[employer]FLO[employer]ING SALES MANAGER - 12/12/2023 1:40 PM EDT Subjective Patient ID: Kim Rocha is a 78 y.o. female who presents for Blood in Urine (Hematuria , slightburning x last night and this morning, denies [...] negative Stopped methotrexate/folic acid in Sep w/ traffic control supervisor CMP Sep 2023: bun 17, creat 0.82, gfr 72 Last UTI 2020 Review of Systems Constitutional: Negative for chills, fatigue and fever. Gastrointestinal: Negative for abdominal pain. Genitourinary: Positive for dysuria, frequency and hematuria. Negative for difficulty urinating andflank pain. Objective BP 126/76 Pulse 63 Ht 1.676 m (5' 6) Wt 65.5 kg (144 lb 5.8 oz) [...] (Completed) Pulmonary hypertension (CMS/HCC) I27.20 Rheumatoid arthritis (CMS/HCC) M06.9 Acute cystitis with hematuria - Primary N30.01 Relevant Medications nitrofurantoin, macrocrystal-monohydrate, (Macrobid) 100 mg capsule 1. Acute cystitis with hematuria nitrofurantoin, macrocrystal-monohydrate, (Macrobid) 100 mg capsule macrobid bid x5D; fantasma urine @ next OV end of mo. 2. Rheumatoid arthritis, involving unspecified site, unspecified whether rheumatoid factor present ([facility]) follows w/ rheumatology; + plaquenil. stopped MTX 3. Pulmonary hypertension (CMS/[facility]) 4. Hematuria, unspecified type POCT UA Automated manually resulted macrobid bid x5D; fantasma urine @ next OV end of mo. [facility]: [phone]) 710-831603-18-2024 Instructions* Patient Instructions* EWA Guillen - 12/12/2023 1:40 PM EDT Macrodantin 100mg twice a day x 5 days Encourage you to remain hydrated Bring urine sample with you to your next appointment with dr. Millan (end of month) [facility] [place] [facility]: 1([phone]) 412-422001-02-2024 History of Present illness Narrative* Kevin Mcdermott MD - 09/27/2023 11:00 AM EST Subjective Patient ID: Kim Rocha is a 78 y.o. female who presents for Sore Throat (X1wk, cough, RT UpperBack Pain). Sore Throat This is a new problem. The current episode started 1 to 4 weeks ago. The problem has been waxing and waning. The pain is worse on the left side. There has been no fever. The pain is at a severity of 8/10. Associated symptoms include congestion, coughing, ear pain, headaches and neck pain. Pertinentnegatives include no abdominal pain, diarrhea, drooling, ear [...] 138/72 Pulse 89 Ht 1.676 m (5' 6) Wt 64.3 kg (141 lb 11.2 oz) [...] (Zithromax) 250 mg tablet [facility] [place] [facility]: [phone] History of Present illness Narrative* Milan Reid MD - 08/25/2023 10:30 AM EST Cardiology Subsequent Encounter Clinic Note Name: Kim [...] room and this episode was termed vasovagal syncope. Hada similar episode back in 2015. No recurrent [...] mouth 1 (one) time each day. Ca-D3-mag cg-caui-tke-nicole-bor 600 mg calcium- 20 mcg-50 mg tablet [...] 122/80 Pulse 59 Ht 1.676 m (5' 6) Wt 64 kg (141 lb 1.6 oz) SpO2 96% BMI 22.77kg/m General: awake, alert and oriented. No acute distress. Skin: Skin is warm, dry and intact without rashes or lesions. Appropriate color for ethnicity. Nailbeds pink with no cyanosis or clubbing HEENT: normocephalic, atraumatic; conjunctivae are clear without exudates or hemorrhage. Sclera is non-icteric. Eyelids are normal in appearance without swelling or lesions. Hearing intact. Nares arepatent bilaterally. Moist mucous membranes. Cardiovascular: Regular. No [...] with gabriela; 02/18/2023 11:07 am ACCESSION NUMBER(S): [id number] ORDERING CLINICIAN: AKANKSHA MILLAN INDICATION: Screening. COMPARISON: [...] group 2 pulmonary hypertension possibly related to age- related left heart disease (diastolic dysfunction). But however [...] Reid MD Advanced Heart Failure/Transplant Cardiology Cardio-Oncology [facility] documented in this [facility] Work Phone: [phone]) 421-531003-24-2023 Evaluation + Plan note* Assessment & Plan Note - Akanksha Millan MD - 12/17/2022 10:44 AM EDTAssociated Problem(s): Rheumatoid arthritis (CMS/HCC) Follows with rheumatology on a routine basis. [facility] Work Phone: [phone]) 460-978503-24-2023 Miscellaneous Notes* Assessment & Plan Note - Akanksha Millan MD - 12/17/2022 10:44 AM EDTAssociated Problem(s): Rheumatoid arthritis (CMS/HCC) Follows with rheumatology on a routine basis. * Assessment & Plan Note - Akanksha Millan MD - 12/17/2022 10:43 AM EDT Associated Problem(s): Irregular heartbeat No issues with palpitations, tolerating metoprolol, had an issue with vasovagal syncope in August, has had no further issues since. * Assessment & Plan Note - Akanksha Millan MD - 12/17/2022 10:43 AM EDT Associated Problem(s): Hyperlipemia, mixed Check blood testing when able. * Assessment & Plan Note - Akanksha Millan MD - 12/17/2022 10:43 AM EDT Associated Problem(s): Vitamin B12 deficiency Check blood test when able. * Assessment & Plan Note - Akanksha Millan MD - 12/17/2022 10:43 AM EDT Associated Problem(s): Pulmonary hypertension (CMS/HCC) Really having no symptoms, last echocardiogram done in 2020 revealed a right ventricular systolic pressure of 40. documented in this [facility] Work Phone: [phone]) 494-796303-24-2023 Evaluation + Plan note* Assessment & Plan Note - Akanksha Millan MD - 12/17/2022 10:43 AM EDTAssociated Problem(s): Irregular heartbeat No issues with palpitations, tolerating metoprolol, had an issue with vasovagal syncope in August, has had no further issues since. T [facility] Work Phone: [phone]) 434-174903-24-2023 Evaluation + Plan note* Assessment & Plan Note - Akanksha Millan MD - 12/17/2022 10:43 AM EDTAssociated Problem(s): Hyperlipemia, mixed Check blood testing when able. T [facility] Work Phone: [phone]) [phone] Evaluation + Plan note* Assessment & Plan Note - Akanksha Millan MD - 12/17/2022 10:43 AM EDTAssociated Problem(s): Vitamin B12 deficiency Check blood test when able. [facility] Work Phone: [phone] Evaluation + Plan note* Assessment & Plan Note - Akanksha Millan MD - 12/17/2022 10:43 AM EDTAssociated Problem(s): Pulmonary hypertension (CMS/HCC) Really having no symptoms, last echocardiogram done in 2020 revealed a right ventricular systolic pressure of 40. [facility] Work Phone: [phone]) 444-584503-24-2023 History of Present illness Narrative* Akanksha Millan MD - 12/17/2022 10:00 AM EDT Subjective Reason for Visit: Kim Rocha is an 77 y.o. female here for a Medicare Wellness visit. Past Medical, Surgical, and Family History reviewed and updated in chart. Reviewed all medications by prescribing practitioner or clinical pharmacist (such as prescriptions,OTCs, herbal therapies and supplements) and documented in the medical record. HPI Seen GI in the past year, using fiber with help Had carotid US in the past year (normal), had in 2020 that was normal Had BPPV in August, no more issues with vertigo Sees Rheumatology on a regular basis Had COVID in August Pain manageable, exercises on a regular basis, does a fall prevention program Having some pain and stiffness in neck, no radicular pain Patient Care Team: Akanksha Millan MD as PCP - General Rogers Bradley DO as PCP - tna Medicare Advantage PCP Review of Systems Objective Vitals: BP 122/70 Pulse 54 Ht 1.676 m (5' 6) Wt 66.1 kg (145 lb 12.8 oz) SpO2 97% BMI 23.53 kg/m Physical Exam Assessment/Plan Problem List Items Addressed This Visit Circulatory Irregular heartbeat Current Assessment & Plan No issues with palpitations, tolerating metoprolol, had an issue with vasovagal syncope in August, has had no further issues since. Pulmonary hypertension (CMS/HCC) Current Assessment & Plan Really having no symptoms, last echocardiogram done in 2020 revealed a right ventricular systolic pressure of 40. Digestive Irritable bowel syndrome (IBS) Endocrine/Metabolic Vitamin B12 deficiency Current Assessment & Plan Check blood test when able. Relevant Orders Vitamin B12 Other Hyperlipemia, mixed Current Assessment & Plan Check blood testing when able. Relevant Orders Comprehensive Metabolic Panel Lipid Panel Rheumatoid arthritis (CMS/HCC) - Primary Current Assessment & Plan Follows with rheumatology on a routine basis. Relevant Orders Follow Up In Primary Care Other Visit Diagnoses Breast screening Relevant Orders BI mammo bilateral screening tomosynthesis Fatigue, unspecified type Relevant Orders Comprehensive Metabolic Panel Vitamin B12 Thyroid Stimulating Hormone Follow Up In Primary Care Breast cancer screening by mammogram Relevant Orders BI mammo bilateral screening tomosynthesis Colonoscopy and colon cancer screening testing are up-to-date, patient's vaccinations are also up-to-date, had a bone density test done 2 years ago that was normal, takes calcium and vitamin D on a regular basis, check screening mammogram in January, follow-up again in 1 year or as needed. Patient did have some issues with some vertigo, was advised about the etiology of this, had an episode of vasovagal syncope was also advised about the etiology of this and advised about fluids and hydration. documented in this [facility] Work Phone: [phone]) [phone] History of Present illness Narrative* 75-year-old female with a medical history of hyperlipidemia, presents with the following complaints * Problem #1 pulmonary hypertension has noticed on her echocardiogram * -Patient's echocardiogram done 01/30/2020 was significant for normal left ventricular systolic function; and a calculated PASP of 40 mmHg. * -Patient notes that she can walk on level ground with for 30 minutes to an hour at a time without any limitations. Denies any orthopnea/PND/leg swelling. Denies any dizziness/lightheadedness. Denies any recent syncopal episodes. * Problem #2 nonsustained ventricular tachycardia noted on her event monitor * -On her recent event monitor done 01/2021 patient was noted to have a 14 beat run of ventricular tachycardia which appeared to be monomorphic * -Denies any palpitations. [id number] [address] Work Phone: [phone] History of Present illness Narrative* 77-year-old female with a medical history of hyperlipidemia, presents with the following complaints * Problem #1 pulmonary hypertension has noticed on her echocardiogram * -Patient's echocardiogram done 01/30/2020 was significant for normal left ventricular systolic function; and a calculated PASP of 40 mmHg. * -Patient notes that she can walk on level ground without any limitations. Denies any orthopnea/PND/leg swelling. Denies any recent syncopal episodes. * Problem #2 nonsustained ventricular tachycardia noted on her event monitor * -On event monitor done 01/2021 patient was noted to have a 14 beat run of ventricular tachycardia which appeared to be monomorphic * -Denies any palpitations. * Does have some noncardiac complaints including knee/calf pain (not claudication), occasional photopsia in visual field (has been seeing stock roller) [id number] [address] Work Phone: Evaluation noteNo assessment information available [facility] Work Phone: Evaluation note* Diagnosis Syncope and collapse- Primary Irregular heartbeat Unspecified cardiac dysrhythmia documented in this encounter [facility] Work Phone: Evaluation note* Diagnosis Irregular heartbeat Unspecified cardiac dysrhythmia Syncope and collapse documented in this encounter [facility] Work Phone: Evaluation note* Diagnosis Acute cough- Primary documented in this encounter [facility] Work Phone: Evaluation note* Diagnosis Acute cystitis with hematuria- Primary Rheumatoid arthritis, involving unspecified site, unspecified whether rheumatoid factor present (CMS/HCC) Pulmonary hypertension (CMS/HCC) Other chronic pulmonary heart diseases Hematuria, unspecified type documented in this encounter [facility] Work Phone: Evaluation note* Diagnosis Routine general [...] screening by mammogram documented in this encounter [facility] Work Phone: Evaluation note* Diagnosis Irritable bowel syndrome, unspecified type- Primary documented in this encounter [facility] Work Phone: Evaluation note* Diagnosis Breast cancer screening by mammogram documented in this encounter [facility] Work Phone: Evaluation note* Diagnosis Routine general medical examination at [facility]- Primary Routine general medical examination at a [facility] Rheumatoid arthritis with negative rheumatoid factor, involving unspecified site (Multi) Hyperlipemia, mixed Mixed hyperlipidemia Vitamin B12 deficiency Other B-complex deficiencies Irritable bowel syndrome, unspecified type Pulmonary hypertension (Multi) Other chronic pulmonary heart diseases Breast screening Breast screening, unspecified Fatigue, unspecified type Breast cancer screening by mammogram Irregular heartbeat Unspecified cardiac dysrhythmia Routine general medical examination at [facility]- Primary Routine general medical examination at a [facility] Rheumatoid arthritis with negative rheumatoid factor, involving unspecified site (Multi) Fatigue, unspecified type Hyperlipemia, mixed Mixed hyperlipidemia Pulmonary hypertension (Multi) Other chronic pulmonary heart diseases Vitamin B12 deficiency Other B-complex deficiencies Irritable bowel syndrome, unspecified type Hematuria, unspecified type Breast cancer screening by mammogram Acute Lyme disease- Primary Primary osteoarthritis, unspecified site Fatigue, unspecified type- Primary Acute Lyme disease Rheumatoid arthritis with negative rheumatoid factor, involving unspecified site (Multi) Acute Lyme disease- Primary Pulmonary HTN (Multi) NSVT (nonsustained ventricular tachycardia) (Multi) Lyme disease, unspecified- Primary Other fatigue Encounter for screening, unspecified documented in this encounter [facility] Work Phone: Evaluation note* Diagnosis Routine general medical examination at [facility]- Primary Routine general medical examination at a [facility] Rheumatoid arthritis with negative rheumatoid factor, involving unspecified site (Multi) Hyperlipemia, mixed Mixed hyperlipidemia Vitamin B12 deficiency Other B-complex deficiencies Irritable bowel syndrome, unspecified type Pulmonary hypertension (Multi) Other chronic pulmonary heart diseases Breast screening Breast screening, unspecified Fatigue, unspecified type Breast cancer screening by mammogram Irregular heartbeat Unspecified cardiac dysrhythmia Routine general medical examination at [facility]- Primary Routine general medical examination at a [facility] Rheumatoid arthritis with negative rheumatoid factor, involving unspecified site (Multi) Fatigue, unspecified type Hyperlipemia, mixed Mixed hyperlipidemia Pulmonary hypertension (Multi) Other chronic pulmonary heart diseases Vitamin B12 deficiency Other B-complex deficiencies Irritable bowel syndrome, unspecified type Hematuria, unspecified type Breast cancer screening by mammogram Acute Lyme disease- Primary Primary osteoarthritis, unspecified site Fatigue, unspecified type- Primary Acute Lyme disease Rheumatoid arthritis with negative rheumatoid factor, involving unspecified site (Multi) Acute Lyme disease Pulmonary HTN (Multi) NSVT (nonsustained ventricular tachycardia) (Multi) Lyme disease, unspecified- Primary Other fatigue Encounter for screening, unspecified documented in this encounter [facility] Work Phone: Evaluation note* Diagnosis Routine general medical examination at [facility]- Primary Routine general medical examination at a [facility] Rheumatoid arthritis with negative rheumatoid factor, involving unspecified site (Multi) Hyperlipemia, mixed Mixed hyperlipidemia Vitamin B12 deficiency Other B-complex deficiencies Irritable bowel syndrome, unspecified type Pulmonary hypertension (Multi) Other chronic pulmonary heart diseases Breast screening Breast screening, unspecified Fatigue, unspecified type Breast cancer screening by mammogram Irregular heartbeat Unspecified cardiac dysrhythmia Routine general medical examination at [facility]- Primary Routine general medical examination at a [facility] Rheumatoid arthritis with negative rheumatoid factor, involving unspecified site (Multi) Fatigue, unspecified type Hyperlipemia, mixed Mixed hyperlipidemia Pulmonary hypertension (Multi) Other chronic pulmonary heart diseases Vitamin B12 deficiency Other B-complex deficiencies Irritable bowel syndrome, unspecified type Hematuria, unspecified type Breast cancer screening by mammogram Acute Lyme disease- Primary Primary osteoarthritis, unspecified site Fatigue, unspecified type- Primary Acute Lyme disease Rheumatoid arthritis with negative rheumatoid factor, involving unspecified site (Multi) Acute Lyme disease Pulmonary HTN (Multi) NSVT (nonsustained ventricular tachycardia) (Multi) Lyme disease, unspecified- Primary Other fatigue Encounter for screening, unspecified documented in this encounter [facility] Work Phone: Evaluation note* Diagnosis Viral illness- Primary Unspecified viral infection, in conditions classified elsewhere and of unspecified site Elevated liver function tests Other abnormal blood chemistry documented in this encounter [facility] Work Phone: Evaluation note* Diagnosis Pseudothrombocytopenia- Primary documented in this encounter [facility] Work Phone: Evaluation note* Diagnosis Viral illness- Primary Unspecified viral infection, in conditions classified elsewhere and of unspecified site Anemia, unspecified type Myalgia Unspecified myalgia and myositis documented in this encounter [facility] Work Phone: Evaluation note* Diagnosis Rheumatoid arthritis flare (Multi)- Primary Cervical radiculopathy Brachial neuritis or radiculitis nos Hyponatremia Hyposmolality and/or hyponatremia Water intoxication Fluid overload documented in this encounter [facility] Work Phone: Evaluation note* Diagnosis Routine general medical examination at health care facility- Primary Routine general medical examination at a [facility] Rheumatoid arthritis with negative rheumatoid factor, involving unspecified site (Multi) Hyperlipemia, mixed Mixed hyperlipidemia Vitamin B12 deficiency Other B-complex deficiencies Irritable bowel syndrome, unspecified type Pulmonary hypertension (Multi) Other chronic pulmonary heart diseases Breast screening Breast screening, unspecified Fatigue, unspecified type Breast cancer screening by mammogram Irregular heartbeat Unspecified cardiac dysrhythmia Routine general medical examination at health care facility- Primary Routine general medical examination at a [facility] Rheumatoid arthritis with negative rheumatoid factor, involving unspecified site (Multi) Fatigue, unspecified type Hyperlipemia, mixed Mixed hyperlipidemia Pulmonary hypertension (Multi) Other chronic pulmonary heart diseases Vitamin B12 deficiency Other B-complex deficiencies Irritable bowel syndrome, unspecified type Hematuria, unspecified type Breast cancer screening by mammogram Acute Lyme disease- Primary Primary osteoarthritis, unspecified site documented in this encounter [facility] Work Phone: Evaluation note* Diagnosis Routine general medical examination at health care facility- Primary Routine general medical examination at a health care facility Rheumatoid arthritis with negative rheumatoid factor, involving unspecified site (CMS/HCC) Hyperlipemia, mixed Mixed hyperlipidemia Vitamin B12 deficiency Other B-complex deficiencies Irritable bowel syndrome, unspecified type Pulmonary hypertension (CMS/HCC) Other chronic pulmonary heart diseases Breast screening Breast screening, unspecified Fatigue, unspecified type Breast cancer screening by mammogram Irregular heartbeat Unspecified cardiac dysrhythmia documented in this encounter [facility] Work Phone: Evaluation note* Diagnosis Routine general medical examination at health care facility- Primary Routine general medical examination at [facility] Rheumatoid arthritis with negative rheumatoid factor, involving unspecified site (Multi) Hyperlipemia, mixed Mixed hyperlipidemia Vitamin B12 deficiency Other B-complex deficiencies Irritable bowel syndrome, unspecified type Pulmonary hypertension (Multi) Other chronic pulmonary heart diseases Breast screening Breast screening, unspecified Fatigue, unspecified type Breast cancer screening by mammogram Irregular heartbeat Unspecified cardiac dysrhythmia Routine [facility] medical [facility]- Primary Routine general medical examination at a [facility] Rheumatoid arthritis with negative rheumatoid factor, involving unspecified site (Multi) Fatigue, unspecified type Hyperlipemia, mixed Mixed hyperlipidemia Pulmonary hypertension (Multi) Other chronic pulmonary heart diseases Vitamin B12 deficiency Other B-complex deficiencies Irritable bowel syndrome, unspecified type Hematuria, unspecified type Breast cancer screening by mammogram Acute Lyme disease- Primary Primary osteoarthritis, unspecified site Fatigue, unspecified type- Primary Acute Lyme disease Rheumatoid arthritis with negative rheumatoid factor, involving unspecified site (Multi) Breast asymmetry- Primary Lyme disease, unspecified- Primary Other fatigue Encounter for screening, unspecified documented in this encounter [facility] Work Phone: Evaluation note* Diagnosis Routine [facility] medical examination [facility]- Primary Routine general medical examination at a [facility] Rheumatoid arthritis with negative rheumatoid factor, involving unspecified site (Multi) Hyperlipemia, mixed Mixed hyperlipidemia Vitamin B12 deficiency Other B-complex deficiencies Irritable bowel syndrome, unspecified type Pulmonary hypertension (Multi) Other chronic pulmonary heart diseases Breast screening Breast screening, unspecified Fatigue, unspecified type Breast cancer screening by mammogram Irregular heartbeat Unspecified cardiac dysrhythmia Routine general medical examination at [facility]- Primary Routine general medical examination at a [facility] Rheumatoid arthritis with negative rheumatoid factor, involving unspecified site (Multi) Fatigue, unspecified type Hyperlipemia, mixed Mixed hyperlipidemia Pulmonary hypertension (Multi) Other chronic pulmonary heart diseases Vitamin B12 deficiency Other B-complex deficiencies Irritable bowel syndrome, unspecified type Hematuria, unspecified type Breast cancer screening by mammogram Acute Lyme disease- Primary Primary osteoarthritis, unspecified site Fatigue, unspecified type- Primary Acute Lyme disease Rheumatoid arthritis with negative rheumatoid factor, involving unspecified site (Multi) Breast asymmetry- Primary Breast asymmetry Lyme disease, unspecified- Primary Other fatigue Encounter for screening, unspecified documented in this encounter [facility] Work Phone: Evaluation note* Diagnosis Routine general medical examination at health care facility- Primary Routine general medical examination at a health care facility Rheumatoid arthritis with negative rheumatoid factor, involving unspecified site (Multi) Hyperlipemia, mixed Mixed hyperlipidemia Vitamin B12 deficiency Other B-complex deficiencies Irritable bowel syndrome, unspecified type Pulmonary hypertension (Multi) Other chronic pulmonary heart diseases Breast screening Breast screening, unspecified Fatigue, unspecified type Breast cancer screening by mammogram Irregular heartbeat Unspecified cardiac dysrhythmia Routine general medical examination at health care facility- Primary Routine general medical examination at [facility] Rheumatoid arthritis with negative rheumatoid factor, involving unspecified site (Multi) Fatigue, unspecified type Hyperlipemia, mixed Mixed hyperlipidemia Pulmonary hypertension (Multi) Other chronic pulmonary heart diseases Vitamin B12 deficiency Other B-complex deficiencies Irritable bowel syndrome, unspecified type Hematuria, unspecified type Breast cancer screening by mammogram Acute Lyme disease- Primary Primary osteoarthritis, unspecified site Fatigue, unspecified type- Primary Acute Lyme disease Rheumatoid arthritis with negative rheumatoid factor, involving unspecified site (Multi) Breast asymmetry- Primary Routine general medical [facility]- Primary Routine general medical examination at a health care facility Encounter for screening, unspecified Rheumatoid arthritis with negative rheumatoid factor, involving unspecified site (Multi) Fatigue, unspecified type Hyperlipemia, mixed Mixed hyperlipidemia Pulmonary hypertension (Multi) Other chronic pulmonary heart diseases Vitamin B12 deficiency Other B-complex deficiencies Irritable bowel syndrome, unspecified type Renal insufficiency Unspecified disorder of kidney and ureter Left leg pain Pain in soft tissues of limb documented in this encounter [facility] Work Phone: Evaluation note* Diagnosis Routine general medical examination at health care facility- Primary Routine general medical examination at a health care facility Rheumatoid arthritis with negative rheumatoid factor, involving unspecified site (Multi) Hyperlipemia, mixed Mixed hyperlipidemia Vitamin B12 deficiency Other B-complex deficiencies Irritable bowel syndrome, unspecified type Pulmonary hypertension (Multi) Other chronic pulmonary heart diseases Breast screening Breast screening, unspecified Fatigue, unspecified type Breast cancer screening by mammogram Irregular heartbeat Unspecified cardiac dysrhythmia Routine [facility] at [facility]- Primary Routine general medical examination at a health care facility Rheumatoid arthritis with negative rheumatoid factor, involving unspecified site (Multi) Fatigue, unspecified type Hyperlipemia, mixed Mixed hyperlipidemia Pulmonary hypertension (Multi) Other chronic pulmonary heart diseases Vitamin B12 deficiency Other B-complex deficiencies Irritable bowel syndrome, unspecified type Hematuria, unspecified type Breast cancer screening by mammogram Acute Lyme disease- Primary Primary osteoarthritis, unspecified site Fatigue, unspecified type- Primary Acute Lyme disease Rheumatoid arthritis with negative rheumatoid factor, involving unspecified site (Multi) Breast asymmetry- Primary Routine general medical examination at health care facility- Primary Routine general medical examination at a health care facility Encounter for screening, unspecified Rheumatoid arthritis with negative rheumatoid factor, involving unspecified site (Multi) Fatigue, unspecified type Hyperlipemia, mixed Mixed hyperlipidemia Pulmonary hypertension (Multi) Other chronic pulmonary heart diseases Vitamin B12 deficiency Other B-complex deficiencies Irritable bowel syndrome, unspecified type Renal insufficiency Unspecified disorder of kidney and ureter Left leg pain Pain in soft tissues of limb Left leg pain Pain in soft tissues of limb documented in this encounter [facility] Work Phone: Evaluation note* Diagnosis Routine [facility]- Primary Routine general medical examination at [facility] Rheumatoid arthritis with negative rheumatoid factor, involving unspecified site (Multi) Hyperlipemia, mixed Mixed hyperlipidemia Vitamin B12 deficiency Other B-complex deficiencies Irritable bowel syndrome, unspecified type Pulmonary hypertension (Multi) Other chronic pulmonary heart diseases Breast screening Breast screening, unspecified Fatigue, unspecified type Breast cancer screening by mammogram Irregular heartbeat Unspecified cardiac dysrhythmia Routine general medical examination at [facility]- Primary Routine general medical examination at a [facility] Rheumatoid arthritis with negative rheumatoid factor, involving unspecified site (Multi) Fatigue, unspecified type Hyperlipemia, mixed Mixed hyperlipidemia Pulmonary hypertension (Multi) Other chronic pulmonary heart diseases Vitamin B12 deficiency Other B-complex deficiencies Irritable bowel syndrome, unspecified type Hematuria, unspecified type Breast cancer screening by mammogram Acute Lyme disease- Primary Primary osteoarthritis, unspecified site Fatigue, unspecified type- Primary Acute Lyme disease Rheumatoid arthritis with negative rheumatoid factor, involving unspecified site (Multi) Breast asymmetry- Primary Routine general medical examination at health care facility- Primary Routine general medical examination at a [facility] Encounter for screening, unspecified Rheumatoid arthritis with negative rheumatoid factor, involving unspecified site (Multi) Fatigue, unspecified type Hyperlipemia, mixed Mixed hyperlipidemia Pulmonary hypertension (Multi) Other chronic pulmonary heart diseases Vitamin B12 deficiency Other B-complex deficiencies Irritable bowel syndrome, unspecified type Renal insufficiency Unspecified disorder of kidney and ureter Left leg pain Pain in soft tissues of limb Irritable bowel syndrome with diarrhea- Primary Irritable bowel syndrome Dry eye syndrome of both eyes Acute Lyme disease Rheumatoid arthritis with negative rheumatoid factor, involving unspecified site (Multi) documented in this encounter [facility] Work Phone: Evaluation note* Diagnosis Routine general medical examination at health care facility- Primary Routine general medical examination at a health care facility Rheumatoid arthritis with negative rheumatoid factor, involving unspecified site (Multi) Hyperlipemia, mixed Mixed hyperlipidemia Vitamin B12 deficiency Other B-complex deficiencies Irritable bowel syndrome, unspecified type Pulmonary hypertension (Multi) Other chronic pulmonary heart diseases Breast screening Breast screening, unspecified Fatigue, unspecified type Breast cancer screening by mammogram Irregular heartbeat Unspecified cardiac dysrhythmia Routine general medical examination at [facility]- Primary Routine general medical examination at a [facility] Rheumatoid arthritis with negative rheumatoid factor, involving unspecified site (Multi) Fatigue, unspecified type Hyperlipemia, mixed Mixed hyperlipidemia Pulmonary hypertension (Multi) Other chronic pulmonary heart diseases Vitamin B12 deficiency Other B-complex deficiencies Irritable bowel syndrome, unspecified type Hematuria, unspecified type Breast cancer screening by mammogram Acute Lyme disease- Primary Primary osteoarthritis, unspecified site Fatigue, unspecified type- Primary Acute Lyme disease Rheumatoid arthritis with negative rheumatoid factor, involving unspecified site (Multi) Breast asymmetry- Primary Routine general medical examination at [facility]- Primary Routine general medical examination at a [facility] Encounter for screening, unspecified Rheumatoid arthritis with negative rheumatoid factor, involving unspecified site (Multi) Fatigue, unspecified type Hyperlipemia, mixed Mixed hyperlipidemia Pulmonary hypertension (Multi) Other chronic pulmonary heart diseases Vitamin B12 deficiency Other B-complex deficiencies Irritable bowel syndrome, unspecified type Renal insufficiency Unspecified disorder of kidney and ureter Left leg pain Pain in soft tissues of limb Chronic pain of left knee- Primary documented in this encounter [facility] Work Phone: History of Present illness Narrative* [...] breath, dizziness, lightheadedness, or edema * Sees Mold Injector on a regular basis * Seen Cardiology, [...] * arthritis stable pain [facility] Work Phone: History of Present illness [...] breath, dizziness, lightheadedness, or edema * Sees Mold Injector on a regular basis * Seen Cardiology, [...] helps at times * arthritis stable pain [facility] Work Phone: History of Present illness [...] breath, dizziness, lightheadedness, or edema * Sees Mold Injector on a regular basis * Seen Cardiology, started on metoprolol for palpitations and pulmonary hypertension * was in ER this past fall in [place], had CT (negative evaluation), pain in abdomen and chest lasted4 hours and resolved * pain more in evening, better in AM, started again in the past week, had stopped taking dicyclomine * had scope in 2018 (normal) * had COVID in July * BM good, eating fiber, no constipation, soft stools * dicyclomine helps at times * arthritis stable pain [facility] Work Phone: History of Present illness [...] breath, dizziness, lightheadedness, or edema * Sees Mold Injector on a regular basis * Seen Cardiology, [...] helps at times * arthritis stable pain [facility] Work Phone: History of Present illness [...] a severely tortuous redundant left colon without polyps.[facility] [address] Work Phone: Reason for referral (narrative)* Consultation (Routine) - Authorized Specialty Diagnoses / Procedures Referred By Bere t Referred To Contact Primary Care Diagnoses Acute Lyme disease Procedures Follow Up In Primary Care - Established Akanksha Millan MD [address] [place] [address] Referral ID Status Reason Start Date Expiration Date V isits Requested Visits Authorized [id number] Authorized 04/10/2024 04/10/2025 1 1 [facility] Work Phone: Reason for referral (narrative)* Consultation (Routine) - Authorized Specialty Diagnoses / Procedures Referred By Renayac t Referred To Contact Primary Care Diagnoses Rheumatoid arthritis with negative rheumatoid factor, involving unspecified site (CMS/HCC) Fatigue, unspecified type Procedures Follow Up In Primary Care Akanksha Millan MD [address] [id number] Referral ID Status Reason Start Date Expiration Date V isits Requested Visits Authorized [id number] Authorized 12/17/2022 06/15/2023 1 1 * Imaging (Routine) - Authorized Specialty Diagnoses / Procedures Referred By Contac t Referred To Contact Radiology Diagnoses Breast screening Breast cancer screening by mammogram Procedures BI mammo bilateral screening tomosynthesis Akanksha Millan MD [address] [id number] Referral ID Status Reason Start Date Expiration Date Visits Requested Visits Authorized [id number] Authorized Perform Procedure 12/17/2022 06/15/2023 1 1 [facility] Work Phone: Reason for referral (narrative)No reason for referral information availableW[facility] Work Phone: Reason for visit Narrative* Cardiac Stress Testing (Routine) - Authorized Specialty Diagnoses / Procedures Referred By Contac t Referred To Contact Cardiology Diagnoses Acute Lyme disease Pulmonary HTN (Multi) NSVT (nonsustained ventricular tachycardia) (Multi) Procedures Holter or Event [employer] Reverse Winder Milan Reid MD [address] [place] [address] [facility], [address] [address] Phone: tel: fax: Referral ID Status Reason Start Date Expiration Date V isits Requested Visits Authorized [id number] Authorized 08/16/2024 08/16/2025 1 1 [facility] Work Phone: reason for visit Narrative* CV Imaging (Routine) - Authorized Specialty Diagnoses / Procedures Referred By Contac t Referred To Contact Cardiology Diagnoses Acute Lyme disease Pulmonary HTN (Multi) NSVT (nonsustained ventricular tachycardia) (Multi) Procedures Transthoracic Echo (TTE) Complete IA ECHO TTHRC R-T 2D W/WOM-MODE COMPL SPEC&COLR D Milan Reid MD [address] [place] [facility] [address] [place] [address] Phone: tel: fax: Referral ID Status Reason Start Date Expiration Date Visits Requested Visits Authorized [id number] Authorized Perform Procedure 08/16/2025 1 1 [facility] Work Phone: Rekwdc for visit Narrative* Imaging (Routine) - Authorized Specialty Diagnoses / Procedures Referred By Contac t Referred To Contact Radiology Diagnoses Breast asymmetry Procedures BI mammo bilateral diagnostic tomosynthesis Aileen Shoemaker DO [address] [facility] [address] [place] [address] Phone: tel: fax: Referral ID Status Reason Start Date Expiration Date Visits Requested Visits Authorized [id number] Authorized Perform Procedure 10/26/2024 10/26/2025 1 1 [facility] Work Phone: Summary Purpose Family History No [...] Status:Active Advance Directives No Advanced Directives Records Found Advance Directive Response Recorded Date/ Time Living Will No June 06, 2021 4:52am Power of Center Hole Reamer No May 4:52am Advance Directive Response Recorded Date/ Time Living Will No September 05 022 7:22pm Power of Center Hole Reamer No September 05, 2022 7:22pm Documents on File Type Date Recorded Patient 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 Specialist 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 anation Healthcare Power of Atty 12/17/2022 Documents on File Type Date Recorded Patient Skin Specialist Expl anation Healthcare Power of Atty 12/17/2022 Advance Directive Response Recorded Date/ Time Living Will No September 05 6:22pm Power of Center Hole Reamer No September 05, 2022 6:22pm Documents on File Type Date Recorded Patient Skin Specialist Expl anation Power of Center Hole Reamer 12/17/2022 10:04 AM Chief Complaint Pulmonary hypertensionWELLNES REV LABSWELLNES REV [...] Bentyl and a probiotic which helps.Pulm HTN Chief Complaint and Reason for Visit Chief Complaint ARTHRITIS/PAIN- COPY PCP 2 DRS/2 ORDERS Chief Complaint 2 DRS/2 ORDERS Chief Complaint AMAUROSIS FUQAX Chief Complaint dizziness 2 DRS/ 2 ORDERS- COPY BOTH Chief Complaint 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 PAIN- COPY PCP Chief Complaint 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 BOTH PAIN- COPY PCP CMP ONLY- LAST SPECIMEN NEVER MADE IT TO LAB Chief Complaint PAIN- COPY PCP CMP ONLY- LAST SPECIMEN NEVER MADE IT TO LAB RHEUMATOID ARTRITIS Chief Complaint Other half-way (cur rent) drug therapy PAIN- COPY PCP PAIN- COPY PCP Chief Complaint PAIN- COPY PCP PAIN- COPY PCP PAIN- COPY PCP Chief Complaint PAIN- COPY PCP PAIN- COPY PCP 2 DRS/ 2 ORDERS Chief Complaint Admit Date PAIN- COPY PCP February 06, 2025 12:55 pm Chief Complaint Admit Date PAIN- COPY PCP February 06, 2025 12:55 pm PAIN- COPY PCP April 24, 2025 11:3 2am Chief Complaint Admit Date PAIN- COPY PCP February 06, 2025 12:55 pm PAIN- COPY PCP April 24, 2025 11:3 2am COPY RESULTS TO PCP May 23, 2025 9: 27am Reason for Referral Specialty Diagnoses / Procedures Referred By Contac t Referred To Contact Cardiology Diagnoses Irregular heartbeat Syncope and collapse Procedures Transthoracic Echo (TTE) Complete IA ECHO TRANSTHORC R-T 2D W/WO M-MODE REC F-UP/LMTD IA DOP ECHOCARD COLOR FLOW VELOCITY MAPPING IA DOP ECHOCARD PULSE WAVE W/SPECTRAL F-UP/LMTD STD Milan Reid MD [address] [facility] [address] [place] [phone] Referral ID Status Reason Start Date Expiration Date Visits Requested Visits Authorized [id number] Pending Review Perform Procedure 3 08/24/2024 1 1 Specialty Diagnoses / Procedures Referred By Contac t Referred To Contact Diagnoses Irregular heartbeat Procedures ECG 12 lead (Clinic Performed) Milan Reid MD [address] [facility] [address] [place] [address] Referral ID Status Reason Start Date Expiration Date V isits Requested Visits Authorized [id number] Pending Review 08/25/2023 08/24/2024 1 1 Referral ID Status Reason Start Date Expiration Date Visits Requested Visits Authorized [id number] Authorized Perform Procedure 08/24/2024 1 1 Specialty Diagnoses / Procedures Referred By Contac t Referred To Contact Radiology Diagnoses Breast cancer screening by mammogram Procedures BI mammo bilateral screening tomosynthesis Akanksha Millan MD [address] [id number] Referral ID Status Reason Start Date Expiration Date Visits Requested Visits Authorized [id number] Authorized Perform Procedure 12/20/2023 12/19/2024 1 1 [...] Primary Care - Established Akanksha Millan MD [address] [place] [address] Referral ID Status Reason Start Date Expiration Date V isits Requested Visits Authorized [id number] Authorized 12/20/2023 12/19/2024 1 1 Additional Source Comments INFORMATION SOURCE (unrecogn ized section and content) DATE CREATED AUTHOR 03/21/2018 [facility] DATE CREATED AUTHOR AUTHOR'S ORGANIZ ATION 02/14/2019 [facility] DATE CREATED AUTHOR AUTHOR'S ORGANIZ ATION 08/26/2021 [facility] DATE CREATED AUTHOR AUTHOR'S ORGANIZ ATION 08/27/2022 [employer] DATE CREATED AUTHOR AUTHOR'S ORGANIZ ATION 02/19/2023 [facility] DATE CREATED AUTHOR AUTHOR'S ORGANIZ ATION 04/12/2024 [facility] DATE CREATED AUTHOR AUTHOR'S ORGANIZ ATION 05/07/2024 [facility] DATE CREATED AUTHOR AUTHOR'S ORGANIZ ATION 12/22/2024 [facility] DATE CREATED AUTHOR AUTHOR'S ORGANIZ ATION 12/26/2024 [facility] DATE CREATED AUTHOR AUTHOR'S ORGANIZ ATION 05/18/2025 [facility] DATE CREATED AUTHOR AUTHOR'S ORGANIZ ATION 08/05/2025 [facility] Goals (unrecognized section and content) Goals may be documented in a n alternate sectionGoals may be documented in an alternate sectionGoals may be documented in an alternate sectionGoals may be documented in an alternate sectionGoals may be documented in an alternate sectionGoals may be documented in an alternate sectionGoals may be documented in an alternate sectionGoals may be documented in an alternate sectionGoals may be documented in an alternate sectionGoals may be documented in an alternate sectionGoals may be documented in an alternate sectionGoals may be documented in an alternate sectionGoals may be documented in an alternate section Care Teams (unrecognized sec tion and content) Team Status: Active Member Role Status Dates Dr. Rashid Millan MD Family Provider Active Dr. Rashid Millan MD Primary Care Provider Active Team Status: Inactive Member Role Status Dates Dr. Rashid Millan MD Primary Care Provider Active Dr. Bassam Leyva MD Attending Provider, Emergency Provi gómez Active Team Status: Inactive Member Role Status Dates Dr. Rashid Millan MD Primary Care Provider Active Dr. Lety Marcelo MD Attending Provider, Referring Provider Active Team Status: Inactive Member Role Status Dates Dr. Rashid Millan MD Primary Care Pr ovider, Attending Provider, Referring Provider Active Dr. Lety Marcelo MD Other Provider Active Team Status: Inactive Member Role Status Dates Dr. Rashid Millan MD Primary Care Provider Active Dr. Lety Marcelo MD Attending Provider Active Sales Support Administrator Relationship Specialty Start Date End Date Akanksha Millan MD PCP - General 05/29/19 [place] Bradley DO [address] [facility], [place] [address] PCP - [employer] Medicare Advantage PCP 09/26/22 Sales Support Administrator Relationship Specialty Start Date End Date [place] Bradley DO [address] [facility], [place] [phone] PCP - [employer] Medicare Advantage PCP 09/26/22 Akanksha Millan MD [address] [place] [address] PCP - General Family Medicine 08/31/23 Sales Support Administrator Relationship Specialty Start Date End Date [place] Bradley DO [address] [facility], [facility] [address] [phone] PCP - [employer] Medicare Advantage PCP 09/26/22 Akanksha Millan MD [address] [id number] PCP - General Family Medicine 08/31/23 Sales Support Administrator Relationship Specialty Start Date End Date [place] Bradley DO [address] [facility], [place] [address] PCP - [employer] Medicare Advantage PCP 09/26/22 Akanksha Millan MD [address] [place] [address] PCP - General Family Medicine 08/31/23 Sales Support Administrator Relationship Specialty Start Date End Date [place] Bradley DO [address] [facility], [place] [address] PCP - [employer] Medicare Advantage PCP 09/26/22 Akanksha Millan MD [address] [place] [address] PCP - General Family Medicine 08/31/23 Sales Support Administrator Relationship Specialty Start Date End Date [place] Bradley DO [address] [facility], [place] [address] PCP - [employer] Medicare Advantage PCP 09/26/22 Akanksha Millan MD [address] [place] [address] PCP - General Family Medicine 08/31/23 Sales Support Administrator Relationship Specialty Start Date End Date [place] Bradley DO [address] [facility], [address] [address] PCP - [employer] Medicare Advantage PCP 09/26/22 Akanksha Millan MD [address] [address] PCP - General Family Medicine 08/02/24 Sales Support Administrator Relationship Specialty Start Date End Date [place] Bradley DO [address] [facility], [address] [address] PCP - [employer] Medicare Advantage PCP 09/26/22 Akanksha Millan MD [address] [address] PCP - General Family Medicine 08/02/24 Sales Support Administrator Relationship Specialty Start Date End Date [place] Bradley DO [address] [facility], [address] [address] PCP - [employer] Medicare Advantage PCP 09/26/22 Akanksha Millan MD [address] [address] PCP - General Family Medicine 08/02/24 Sales Support Administrator Relationship Specialty Start Date End Date [place] Bradley DO [address] [facility], [address] [address] PCP - [employer] Medicare Advantage PCP 09/26/22 Akanksha Millan MD [address] [place] [address] PCP - General Family Medicine 08/31/23 Sales Support Administrator Relationship Specialty Start Date End Date [place] Bradley DO [address] [facility], [facility] [address] [place] [address] PCP - [employer] Medicare Advantage PCP 09/26/22 Akanksha Millan MD [address] [place] [address] PCP - General Family Medicine 08/31/23 Sales Support Administrator Relationship Specialty Start Date End Date [place] Bradley DO [address] [facility], [facility] [address] [place] [address] PCP - [employer] Medicare Advantage PCP 09/26/22 Akanksha Millan MD [address] [place] [address] PCP - General Family Medicine 08/31/23 Sales Support Administrator Relationship Specialty Start Date End Date [place] Bradley DO [address] [facility], [place] [address] PCP - [employer] Medicare Advantage PCP 09/26/22 Akanksha Millan MD [address] [place] [address] PCP - General Family Medicine 08/31/23 Sales Support Administrator Relationship Specialty Start Date End Date Akanksha Millan MD [address] [place] [address] PCP - General 05/29/19 [place] Bradley DO [address] [facility] [place] [address] [place] [address] PCP - [employer] Medicare Advantage PCP 08/26/22 Sales Support Administrator Relationship Specialty Start Date End Date Akanksha Millan MD [address] [address] PCP - General Family Medicine 08/02/24 Akanksha Millan MD [address] [address] PCP - [employer]age PCP 09/26/24 Sales Support Administrator Relationship Specialty Start Date End Date Akanksha Millan MD [address] [address] PCP - General Family Medicine 08/02/24 Akanksha Millan MD [address] [address] PCP - [employer]age PCP 09/26/24 Sales Support Administrator Relationship Specialty Start Date End Date Akanksha Millan MD [address] [address] PCP - General Family Medicine 08/02/24 Akanksha Millan MD [address] [address] PCP - [employer]age PCP 09/26/24 Sales Support Administrator Relationship Specialty Start Date End Date Akanksha Millan MD [address] [address] PCP - General Family Medicine 08/02/24 Akanksha Millan MD [address] [address] PCP - [employer] Advantage PCP 09/26/24 Team Status: Inactive Member Role Status Dates Dr. Rashid Millan MD Primary Care Provider Active Start: October 18, 2024 End: October 18, 2024 Dr. Lety Marcelo MD Attending Provider Active Start: October 18, 2024 End: October 18, 2024 Dr. Lety Marcelo MD Referring Provider Active Start: October 18, 2024 End: October 18, 2024 Team Status: Inactive Member Role Status Dates Dr. Rashid Millan MD Primary Care Provider Active Start: February 06, 2025 End: February 06, 2025 Dr. Lety Marcelo MD Attending Provider Active Start: February 06, 2025 End: February 06, 2025 Dr. Lety Marcelo MD Referring Provider Active Start: February 06, 2025 End: February 06, 2025 Team Status: Active Member Role/Relationship Status Dates Dr. Rashid Millan MD Family Provider Active Dr. Rashid Millan MD Primary Care Provider Active Team Status: Inactive Member Role/Relationship Status Dates Dr. Rashid Millan MD Primary Care Provider Active Start: February 06, 2025 End: February 06, 2025 Dr. Lety Marcelo MD Attending Provider Active Start: February 06, 2025 End: February 06, 2025 Dr. Lety Marcelo MD Referring Provider Active Start: February 06, 2025 End: February 06, 2025 Team Status: Inactive Member Role/Relationship Status Dates Dr. Rashid Millan MD Primary Care Provider Active Start: April 24, 2025 End: April 24, 2025 Dr. Lety Marcelo MD Attending Provider Active Start: April 24, 2025 End: April 24, 2025 Dr. Lety Marcelo MD Referring Provider Active Start: April 24, 2025 End: April 24, 2025 Sales Support Administrator Relationship Specialty Start Date End Date Akanksha Millan MD [address] [address] PCP - General Family Medicine 08/02/24 Akanksha Millan MD [address] [address] PCP - [employer] Medicare Advantage PCP 09/26/24 Team Status: Inactive Member Role/Relationship Status Dates Dr. Rashid Millan MD Primary Care Provider Active Start: May 23, 2025 End: May 23, 2025 Dr. Lety Marcelo MD Attending Provider Active Start: May 23, 2025 End: May 23, 2025 Dr. Lety Marcelo MD Referring Provider Active Start: May 23, 2025 End: May 23, 2025 Reason for Visit (unrecogniz ed section and content) Reason Comments 1 year f/u Specialty Diagnoses / Procedures Referred By Contac t Referred To Contact Diagnoses Irregular heartbeat Procedures ECG 12 lead (Clinic Performed) Milan Reid MD [address] [place], [place] [address] Referral ID Status Reason Start Date Expiration Date V isits Requested Visits Authorized [id number] Pending Review 08/25/2023 08/24/2024 1 1 Specialty Diagnoses / Procedures Referred By Contac t Referred To Contact Cardiology Diagnoses Irregular heartbeat Syncope and collapse Procedures Transthoracic Echo (TTE) Complete IA ECHO TRANSTHORC R-T 2D W/WO M-MODE REC F-UP/LMTD IA DOP ECHOCARD COLOR FLOW VELOCITY MAPPING IA DOP ECHOCARD PULSE WAVE W/SPECTRAL F-UP/LMTD STD Milan Reid MD [address] [place], [address] [address] Referral ID Status Reason Start Date Expiration Date Visits Requested Visits Authorized [id number] Authorized Perform Procedure 3 08/24/2024 1 1 Reason Comments Sore Throat X1wk, cough, RT Uppe r Back Pain Reason Comments Blood in Urine Hematuria , slight b urning x last night and this morning, denies any symptoms now Reason Comments Medicare Annual Wellness Visit Subsequen t Specialty Diagnoses / Procedures Referred By Renayac t Referred To Contact Primary Care Diagnoses Rheumatoid arthritis with negative rheumatoid factor, involving unspecified site ([facility]) Fatigue, unspecified type Procedures Follow Up In Primary Care Akanksha Millan MD [address] [place] [address] Referral ID Status Reason Start Date Expiration Date Visits Re quested Visits Authorized [id number] Closed 12/17/2022 06/15/2023 1 1 Reason Comments Follow-up IBS pt reports only 7 really bad days in the past year. Specialty Diagnoses / Procedures Referred By Bere t Referred To Contact Radiology Diagnoses Breast cancer screening by mammogram Procedures BI mammo bilateral screening tomosynthesis Akanksha Millan MD [address] [place] [address] Referral ID Status Reason Start Date Expiration Date Visits Requested Visits Authorized [id number] Authorized Perform Procedure 12/20/2023 12/19/2024 1 1 Reason Comments Follow-up 1 year Reason Comments ER F/U Fever/HIRSCH Reason Comments abnormal labs Pt comes in for abno rmal labs. Pt states she received a call from her PCP's office to come be evaluated. Pt was recently seen in [facility] for a syncopal episode 3 days ago. Pt followed up with her PCP and had more labs done. Pts platelets are 26 and they were normal 3 days ago. Pt has no current complaints except for balance issues and pain with looking up. Reason Comments Muscle PAIN BL LEGS Reason Comments abnormal labs Pt comes in for abno rmal labs. Pt had blood work done yesterday and received a phone call today that her sodium was 127 and to be evaluated in the ER. Pt complains on right side pain that goes from her head down her leg and headache. 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 Specialty Diagnoses / Procedures Referred By Bere ta Referred To Contact Primary Care Diagnoses Rheumatoid arthritis with negative rheumatoid factor, involving unspecified site (Multi) Fatigue, unspecified type Routine general medical examination at health care facility Hyperlipemia, mixed Pulmonary hypertension (Multi) Vitamin B12 deficiency Irritable bowel syndrome, unspecified type Hematuria, unspecified type Procedures Follow Up In Primary Care - Established Akanksha Millan MD Phone: tel: fax: Referral ID Status Reason Start Date Expiration Date V isits Requested Visits Authorized [id number] Authorized 12/20/2023 12/19/2024 1 1 Reason Comments Follow-up Pt presents today as a one year follow up for IBS. Pt states she's felt better since last visit, stating that's only had 12 flairs over the last year, and were almost always after having foods that didn't agree with her or went out to eat. Reason Comments LT KNEE PAIN/SWELLING On/off since November Scheduled Active and Recently Administ ered Medications (unrecognized section and content) Medication Order 03/14/2024 03/15/2024 03/16/2024 dexAMETHasone (Decadron) tablet 12 mg (COMPLETED) 12 mg, oral, Once, On Tue03/16/24 at 2330, For 1 dose 2343 (Given - Provid er: Susanna Alford RN) Scheduled Medication Order 03/26/2024 03/27/2024 03/28/2024 predniSONE (Deltasone) tablet 60 mg (COMPLETED) 60 mg, oral, Once, On Tue03/28/24 at 1305, For 1 dose 1327 (Given - Provid er: Aleksandra Fenton) sodium chloride 0.9 % bolus 1,000 mL (COMPLETED) 1,000 mL, intravenous, at 999 mL/hr, Administer over 1 Hours, Once, On Tue03/28/24 at 1055, For 1 dose 1137 (New Bag - Prov ider: Bill Soriano RN)1400 (Stopped - Provider: Bill Soriano RN) Continuous Medication Order 03/26/2024 03/27/2024 03/28/2024 sodium chloride 0.9% infusion 250 mL/hr, intravenous, Continuous, Starting on Tue03/28/24 at 1055 1055 (Not Given - Pr ovider: Bill Soriano RN - Reason: Other - Comment: finished treatment) FOR RECORDS PERTAINING TO PATIENTS WHO ARE [...] BE BASED ON THE PRIMARY CLINICAL RECORDS. [facility]. provides no warranty or guarantee of the accuracy or completeness of information in this document.
[2025-08-18 20:53] LABS: Hematocrit 37.0 % (37-47); Hemoglobin 12.1 g/dL (12.0-15.0); Mean Corp Hgb Conc 32.7 g/dL (32-36); Mean Corpuscular Volume 97.6 fL (81-99); Mean Platelet Vol. 10.0 fl (6.2-12.0); Platelet Count 204 K/mm3 (150-450); RBC Distribution Width CV 13.9 % (11.6-14.6); RBC Distribution Width SD 49.2 fl (35.1-43.9); Red Blood Count 3.79 M/mm3 (4.2-5.4); White Blood Count 5.6 K/mm3 (4.4-11.0)
--- NOTE | 2025-08-18 21:15 | EKG12_ITS ---
Test Reason : REPEAT Blood Pressure : */* mmHG Vent. Rate : 99 BPM Atrial Rate : 99 BPM P-R Int : 156 ms QRS Dur : 130 ms QT Int : 388 ms P-R-T Axes : 53 72 21 degrees QTcB Int : 497 ms Sinus rhythm with Premature supraventricular complexes Right bundle branch block Abnormal ECG Confirmed by DEDRA GUTIERREZ, ALEIDA ([id number]), online editor NAZIA ROCA ([id number]) on 08/19/2025 1:10:31 PM Referred By: Confirmed By: ALEIDA COLMENARES MD
[2025-08-18 21:23] LABS: Anion Gap 13 (5-15); BUN 30 mg/dL (4-19); BUN/Creat Ratio 26.6 RATIO (10-20); Calcium,Total 9.3 mg/dL (7.6-11.0); Carbon Dioxide 24.7 mmol/L (21.0-32.0); Chloride 101 mmol/L (98-108); Estimated Creatinine Clearance 37.50 ml/min (50-250); Glucose 220 mg/dL (70-99); Potassium 3.8 mmol/L (3.3-5.1); Troponin T High Sensitivity 39 ng/L (<=14)
--- NOTE | 2025-08-18 22:43 | EX.ED.DYSGE1 ---
HPI <Dr. Bassam Leyva MD - Last Filed: 08/19/25 10:20> History of Present Illness Chief Complaint: Palpitations Detail of Chief Complaint: Palpitations, fast heart rate and discomfort in the chest Informant: patient Onset/Context/Timing Onset: Today (Approximately 1830) Context: Sudden Onset Timing: Continuous Quality: Rapid heart rate with mild shortness of breath and initial lightheadedness Location: Cardiovascular Current Severity: Mild Maximum Severity: Moderate Worsened by: Onset of new A-fib Relieved by: Nothing Associated Symptoms Associated Symptoms: Initially lightheadedness and some mild chest discomfort Narrative Narrative: Patient is a pleasant 80-year-old woman. She states she is on metoprolol. Her metoprolol she was recently changed by a spindle sander. She has seen his spindle sander twice. He is located in [place]. She denies history of thyroid disease. She denies heat or cold intolerance. She denies weight gain or weight loss. She presently complains of her heart going fast. She states is never gone this fast. She denies any associated shortness of breath, diaphoresis or nausea and vomiting. Patient [place] abdominal pain, black or maroon stool. Prior similar symptoms: No Recent Illness/Hospitalization: No PFSH <Dr. Bassam Leyva MD - Last Filed: 08/19/25 10:20> [facility] Medical History Vertigo Rheumatoid arthritis IBS (irritable bowel syndrome) Home Medications ?Medication ?Instructions ?Recorded ?Last Taken ?Type aspirin 81 mg tablet,delayed 81 mg PO DAILY@0800 08/23/13 Unknown History release calcium 600 mg (as 2 tab PO DAILY 08/23/13 Unknown History carbonate)-vitamin D3 10 mcg (400 unit) tablet (Calcium 600 + D(3)) hydroxychloroquine 200 mg tablet 200 mg PO BIDCM 08/23/13 Unknown History multivitamin with folic acid 400 1 tab PO DAILY 08/23/13 Unknown History mcg tablet (Thera) pyridoxine (vitamin B6) 50 mg 100 mg PO DAILY 08/23/13 Unknown History tablet vitamin E (dl, acetate) 180 mg 800 units PO DAILY 08/23/13 Unknown History (400 unit) capsule dicyclomine 20 mg tablet 10 mg PO PRN PRN ibs 06/06/21 Unknown History folic acid 1 mg tablet 1 mg PO BID 06/06/21 Unknown History methotrexate sodium 2.5 mg tablet 7.5 mg PO BID 06/06/21 Unknown History metoprolol succinate 25 mg 12.5 mg PO BID 06/06/21 Unknown History tablet,extended release 24 hr Lactobacillus acidophilus 10 100 mmu cells PO DAILY 08/18/25 Unknown History billion cell capsule (DermacinRx Bacillex) psyllium husk 0.4 gram capsule 0.4 g PO DAILY 08/18/25 Unknown History (Daily Fiber) apixaban 5 mg tablet (Eliquis) 5 mg PO BID 30 days #60 tabs 08/19/25 Unknown Rx Allergy/AdvReac Type Severity Reaction Status Date / Time acetaminophen (From Vicodin) Allergy Other Verified 08/18/25 20:27 amoxicillin trihydrate (From Allergy Rash Verified 08/18/25 20:27 Augmentin) hydrocodone bitartrate (From Allergy Other Verified 08/18/25 20:27 Vicodin) potassium clavulanate (From Allergy Rash Verified 08/18/25 20:27 Augmentin) diclofenac sodium (From AdvReac Nausea/Vom/ Verified 08/18/25 20:27 Voltaren) Diarrhea tramadol AdvReac Nausea Verified 08/18/25 20:27 Social History Smoking Status: Never smoker ROS <Dr. Bassam Leyva MD - Last Filed: 08/19/25 10:20> ROS ED Constitutional Constitutional ED: Denies chills, fever(s), subjective, sweats or weight loss Eyes Eyes: Denies blurry vision or change in vision ENT ENT ED: Denies ear pain, rhinorrhea or sore throat Cardiovascular Cardiovascular: Reports chest pain, palpitations and racing heartbeat; Denies orthopnea or paroxysmal nocturnal dyspnea Respiratory/Chest Respiratory/Chest: Denies cough, dyspnea, dyspnea on exertion, orthopnea or paroxysmal nocturnal dyspnea Gastrointestinal Gastrointestinal: Denies abdominal pain, constipation, diarrhea, melena, nausea or vomiting Musculoskeletal Musculoskeletal: Denies arthralgias, back pain, myalgias or neck pain Integumentary Denies rash Neurologic Neurologic: Denies headache(s), paresthesias or weakness Endocrine Endocrinology: Denies cold intolerance or heat intolerance Hematologic/Lymphatic Hematologic/Lymphatic: Reports systems reviewed and no addt'l complaints, except as documented EXAM <Dr. Bassam Leyva MD - Last Filed: 08/19/25 10:20> Physical Exam Const Vital Signs: 08/18/25 20:21 08/18/25 21:02 08/18/25 21:08 Temperature 97.3 F L Temperature Source Temporal Pulse Rate 156 H 145 H Pulse Rate [1 (Initial Baseline)] Pulse Rate [5] Pulse Rate [6] Respiratory Rate 16 19 H Respiratory Rate [1 (Initial Baseline)] Respiratory Rate [5] Respiratory Rate [6] Blood Pressure 151/96 H 145/81 H Blood Pressure [1 (Initial Baseline)] Blood Pressure [5] Blood Pressure [6] Blood Pressure Mean 114 Baseline BP 145/81 Pulse Ox 99 100 Oxygen Delivery Method Room Air Room Air Room Air Oxygen Delivery Method [1 (Initial Baseline)] Oxygen Delivery Method [2] Oxygen Delivery Method [3] Oxygen Delivery Method [4] Oxygen Delivery Method [5] Oxygen Delivery Method [6] Oxygen Flow Rate (L/min) [3] Oxygen Flow Rate (L/min) [4] Oxygen Flow Rate (L/min) [5] Oxygen Flow Rate (L/min) [6] EtCo2 - Document during CPR and with ROSC 37 EtCo2 - Document during CPR and with ROSC [1 (Initial Baseline)] EtCo2 - Document during CPR and with ROSC [6] 08/18/25 21:10 08/18/25 21:11 08/18/25 21:25 Temperature Temperature Source Pulse Rate 100 Pulse Rate [1 (Initial Baseline)] 144 H Pulse Rate [5] 95 Pulse Rate [6] 98 Respiratory Rate 15 Respiratory Rate [1 (Initial Baseline)] 37 H Respiratory Rate [5] 18 Respiratory Rate [6] 17 Blood Pressure 149/71 H Blood Pressure [1 (Initial Baseline)] 188/101 H Blood Pressure [5] 121/68 H Blood Pressure [6] 137/75 H Blood Pressure Mean Baseline BP Pulse Ox 98 Oxygen Delivery Method Room Air Oxygen Delivery Method [1 (Initial Baseline)] Room Air Oxygen Delivery Method [2] Room Air Oxygen Delivery Method [3] Nasal Cannula Oxygen Delivery Method [4] Nasal Cannula Oxygen Delivery Method [5] Nasal Cannula Oxygen Delivery Method [6] Nasal Cannula Oxygen Flow Rate (L/min) [3] 2 Oxygen Flow Rate (L/min) [4] 2 Oxygen Flow Rate (L/min) [5] 2 Oxygen Flow Rate (L/min) [6] 2 EtCo2 - Document during CPR and with ROSC 35 36 EtCo2 - Document during CPR and with ROSC [1 (Initial Baseline)] 37 EtCo2 - Document during CPR and with ROSC [6] 37 08/18/25 21:30 08/18/25 21:34 08/18/25 22:00 Temperature Temperature Source Pulse Rate 96 97 82 Pulse Rate [1 (Initial Baseline)] Pulse Rate [5] Pulse Rate [6] Respiratory Rate 12 14 12 Respiratory Rate [1 (Initial Baseline)] Respiratory Rate [5] Respiratory Rate [6] Blood Pressure 148/77 H 142/69 H 141/71 H Blood Pressure [1 (Initial Baseline)] Blood Pressure [5] Blood Pressure [6] Blood Pressure Mean 94 Baseline BP Pulse Ox 97 98 100 Oxygen Delivery Method Room Air Room Air Room Air Oxygen Delivery Method [1 (Initial Baseline)] Oxygen Delivery Method [2] Oxygen Delivery Method [3] Oxygen Delivery Method [4] Oxygen Delivery Method [5] Oxygen Delivery Method [6] Oxygen Flow Rate (L/min) [3] Oxygen Flow Rate (L/min) [4] Oxygen Flow Rate (L/min) [5] Oxygen Flow Rate (L/min) [6] EtCo2 - Document during CPR and with ROSC 40 36 EtCo2 - Document during CPR and with ROSC [1 (Initial Baseline)] EtCo2 - Document during CPR and with ROSC [6] 08/18/25 23:00 08/19/25 00:00 08/19/25 01:00 Temperature Temperature Source Pulse Rate 78 79 77 Pulse Rate [1 (Initial Baseline)] Pulse Rate [5] Pulse Rate [6] Respiratory Rate 16 12 15 Respiratory Rate [1 (Initial Baseline)] Respiratory Rate [5] Respiratory Rate [6] Blood Pressure 135/81 H 141/79 H 152/89 H Blood Pressure [1 (Initial Baseline)] Blood Pressure [5] Blood Pressure [6] Blood Pressure Mean 99 99 110 Baseline BP Pulse Ox 97 97 98 Oxygen Delivery Method Room Air Room Air Room Air Oxygen Delivery Method [1 (Initial Baseline)] Oxygen Delivery Method [2] Oxygen Delivery Method [3] Oxygen Delivery Method [4] Oxygen Delivery Method [5] Oxygen Delivery Method [6] Oxygen Flow Rate (L/min) [3] Oxygen Flow Rate (L/min) [4] Oxygen Flow Rate (L/min) [5] Oxygen Flow Rate (L/min) [6] EtCo2 - Document during CPR and with ROSC EtCo2 - Document during CPR and with ROSC [1 (Initial Baseline)] EtCo2 - Document during CPR and with ROSC [6] 08/19/25 02:30 Temperature 98.5 F Temperature Source Pulse Rate 73 Pulse Rate [1 (Initial Baseline)] Pulse Rate [5] Pulse Rate [6] Respiratory Rate 12 Respiratory Rate [1 (Initial Baseline)] Respiratory Rate [5] Respiratory Rate [6] Blood Pressure 144/80 H Blood Pressure [1 (Initial Baseline)] Blood Pressure [5] Blood Pressure [6] Blood Pressure Mean 101 Baseline BP Pulse Ox 98 Oxygen Delivery Method Oxygen Delivery Method [1 (Initial Baseline)] Oxygen Delivery Method [2] Oxygen Delivery Method [3] Oxygen Delivery Method [4] Oxygen Delivery Method [5] Oxygen Delivery Method [6] Oxygen Flow Rate (L/min) [3] Oxygen Flow Rate (L/min) [4] Oxygen Flow Rate (L/min) [5] Oxygen Flow Rate (L/min) [6] EtCo2 - Document during CPR and with ROSC EtCo2 - Document during CPR and with ROSC [1 (Initial Baseline)] EtCo2 - Document during CPR and with ROSC [6] Positive well nourished and well developed General Appearance ED: well developed and NAD; Negative for cyanotic, diaphoretic or pallor HEENT Reports moist mucous membranes HEENT Narrative: Head is atraumatic no cephalic. Ears normal. Nares patent. Posterior pharynx normal. Uvula midline. No deviation on protrusion. Eyes PERRL and EOMs intact bilaterally General Eye ED: Negative for pale conjunctiva or scleral icterus Neck no lymphadenopathy, supple and no JVD Chest Wall inspection of chest normal Resp normal respiratory effort and clear to auscultation bilaterally Cardio no murmurs Rate: tachycardic Rhythm: abnormal rhythm irregularly irregular GI normal to inspection, nondistended, normoactive bowel sounds, non-tender, non-distended and no masses; Negative for hepatosplenomegaly GI Narrative: There is no pulsatile mass or abdominal bruit. Extremity normal to inspection General Extremety ED: Negative for edema or tenderness General Extremity: Negative for edema Neuro oriented x3 and CN's II-XII intact bilaterally Neuro Narrative: Moves all extremities. Sensorium / Orientation: alert Skin no rashes or lesions noted, no wounds and skin turgor normal General Skin Exam: Negative for elasticity normal, jaundice or pallor <Dr. Juancarlos Damon, DO - Last Filed: 08/19/25 02:13> Physical Exam Const Vital Signs: 08/18/25 20:21 08/18/25 21:02 08/18/25 21:08 Temperature 97.3 F L Temperature Source Temporal Pulse Rate 156 H 145 H Pulse Rate [1 (Initial Baseline)] Pulse Rate [5] Pulse Rate [6] Respiratory Rate 16 19 H Respiratory Rate [1 (Initial Baseline)] Respiratory Rate [5] Respiratory Rate [6] Blood Pressure 151/96 H 145/81 H Blood Pressure [1 (Initial Baseline)] Blood Pressure [5] Blood Pressure [6] Blood Pressure Mean 114 Baseline BP 145/81 Pulse Ox 99 100 Oxygen Delivery Method Room Air Room Air Room Air Oxygen Delivery Method [1 (Initial Baseline)] Oxygen Delivery Method [2] Oxygen Delivery Method [3] Oxygen Delivery Method [4] Oxygen Delivery Method [5] Oxygen Delivery Method [6] Oxygen Flow Rate (L/min) [3] Oxygen Flow Rate (L/min) [4] Oxygen Flow Rate (L/min) [5] Oxygen Flow Rate (L/min) [6] EtCo2 - Document during CPR and with ROSC 37 EtCo2 - Document during CPR and with ROSC [1 (Initial Baseline)] EtCo2 - Document during CPR and with ROSC [6] 08/18/25 21:10 08/18/25 21:11 08/18/25 21:25 Temperature Temperature Source Pulse Rate 100 Pulse Rate [1 (Initial Baseline)] 144 H Pulse Rate [5] 95 Pulse Rate [6] 98 Respiratory Rate 15 Respiratory Rate [1 (Initial Baseline)] 37 H Respiratory Rate [5] 18 Respiratory Rate [6] 17 Blood Pressure 149/71 H Blood Pressure [1 (Initial Baseline)] 188/101 H Blood Pressure [5] 121/68 H Blood Pressure [6] 137/75 H Blood Pressure Mean Baseline BP Pulse Ox 98 Oxygen Delivery Method Room Air Oxygen Delivery Method [1 (Initial Baseline)] Room Air Oxygen Delivery Method [2] Room Air Oxygen Delivery Method [3] Nasal Cannula Oxygen Delivery Method [4] Nasal Cannula Oxygen Delivery Method [5] Nasal Cannula Oxygen Delivery Method [6] Nasal Cannula Oxygen Flow Rate (L/min) [3] 2 Oxygen Flow Rate (L/min) [4] 2 Oxygen Flow Rate (L/min) [5] 2 Oxygen Flow Rate (L/min) [6] 2 EtCo2 - Document during CPR and with ROSC 35 36 EtCo2 - Document during CPR and with ROSC [1 (Initial Baseline)] 37 EtCo2 - Document during CPR and with ROSC [6] 37 08/18/25 21:30 08/18/25 21:34 08/18/25 22:00 Temperature Temperature Source Pulse Rate 96 97 82 Pulse Rate [1 (Initial Baseline)] Pulse Rate [5] Pulse Rate [6] Respiratory Rate 12 14 12 Respiratory Rate [1 (Initial Baseline)] Respiratory Rate [5] Respiratory Rate [6] Blood Pressure 148/77 H 142/69 H 141/71 H Blood Pressure [1 (Initial Baseline)] Blood Pressure [5] Blood Pressure [6] Blood Pressure Mean 94 Baseline BP Pulse Ox 97 98 100 Oxygen Delivery Method Room Air Room Air Room Air Oxygen Delivery Method [1 (Initial Baseline)] Oxygen Delivery Method [2] Oxygen Delivery Method [3] Oxygen Delivery Method [4] Oxygen Delivery Method [5] Oxygen Delivery Method [6] Oxygen Flow Rate (L/min) [3] Oxygen Flow Rate (L/min) [4] Oxygen Flow Rate (L/min) [5] Oxygen Flow Rate (L/min) [6] EtCo2 - Document during CPR and with ROSC 40 36 EtCo2 - Document during CPR and with ROSC [1 (Initial Baseline)] EtCo2 - Document during CPR and with ROSC [6] 08/18/25 23:00 08/19/25 00:00 08/19/25 01:00 Temperature Temperature Source Pulse Rate 78 79 77 Pulse Rate [1 (Initial Baseline)] Pulse Rate [5] Pulse Rate [6] Respiratory Rate 16 12 15 Respiratory Rate [1 (Initial Baseline)] Respiratory Rate [5] Respiratory Rate [6] Blood Pressure 135/81 H 141/79 H 152/89 H Blood Pressure [1 (Initial Baseline)] Blood Pressure [5] Blood Pressure [6] Blood Pressure Mean 99 99 110 Baseline BP Pulse Ox 97 97 98 Oxygen Delivery Method Room Air Room Air Room Air Oxygen Delivery Method [1 (Initial Baseline)] Oxygen Delivery Method [2] Oxygen Delivery Method [3] Oxygen Delivery Method [4] Oxygen Delivery Method [5] Oxygen Delivery Method [6] Oxygen Flow Rate (L/min) [3] Oxygen Flow Rate (L/min) [4] Oxygen Flow Rate (L/min) [5] Oxygen Flow Rate (L/min) [6] EtCo2 - Document during CPR and with ROSC EtCo2 - Document during CPR and with ROSC [1 (Initial Baseline)] EtCo2 - Document during CPR and with ROSC [6] 08/19/25 02:30 Temperature 98.5 F Temperature Source Pulse Rate 73 Pulse Rate [1 (Initial Baseline)] Pulse Rate [5] Pulse Rate [6] Respiratory Rate 12 Respiratory Rate [1 (Initial Baseline)] Respiratory Rate [5] Respiratory Rate [6] Blood Pressure 144/80 H Blood Pressure [1 (Initial Baseline)] Blood Pressure [5] Blood Pressure [6] Blood Pressure Mean 101 Baseline BP Pulse Ox 98 Oxygen Delivery Method Oxygen Delivery Method [1 (Initial Baseline)] Oxygen Delivery Method [2] Oxygen Delivery Method [3] Oxygen Delivery Method [4] Oxygen Delivery Method [5] Oxygen Delivery Method [6] Oxygen Flow Rate (L/min) [3] Oxygen Flow Rate (L/min) [4] Oxygen Flow Rate (L/min) [5] Oxygen Flow Rate (L/min) [6] EtCo2 - Document during CPR and with ROSC EtCo2 - Document during CPR and with ROSC [1 (Initial Baseline)] EtCo2 - Document during CPR and with ROSC [6] [facility] <Dr. Bassam Leyva MD - Last Filed: 08/19/25 10:20> [facility] Narrative Medical decision making narrative: Patient with new onset A-fib with RVR. Since onset is known. Patient was consented for procedural sedation using propofol. She has no allergy to soy products or egg products. He also was consented for cardioversion. She was explained risk benefits and precautions have been taken. She did sign consent form. Will obtain appropriate blood work to rule out cardiac ischemia, thyroid disease, doubt pulmonary embolus. Lab Data Attestation: I reviewed the patient's lab results. Lab results narrative: CBC is normal. First troponin is elevated at 39. Glucose is elevated 220. CO2 anion gap is normal. BUN is elevated at 30 with a creatinine of 1.12 with a BUN to creatinine ratio of approximately 27-1. TSH is normal at 1.99. Labs: Laboratory Results - last 24 hr 08/18/25 08/18/25 08/19/25 20:42 22:42 00:45 WBC 5.6 RBC 3.79 L Hgb 12.1 Hct 37.0 MCV 97.6 MCH 31.9 MCHC 32.7 RDW Std Deviation 49.2 H RDW Coeff of Taras 13.9 Plt Count 204 MPV 10.0 Sodium 139 Potassium 3.8 Chloride 101 Carbon Dioxide 24.7 Anion Gap 13 BUN 30 H Creatinine 1.12 Estim Creat Clear Calc 37.50 L Est GFR (MDRD) Non-Af 50 L BUN/Creatinine Ratio 26.6 H Glucose 220 H Calcium 9.3 Troponin T High Sens 39 H Troponin T Hi Sens 2 Hr 72 H* Troponin T Hi Sens 4Hr 89 H* TSH 1.990 Suspect the initial troponin was elevated due to A-fib RVR. Second 1 is probably elevated due to the fact that she was cardioverted. Will obtain a 4-hour troponin. Rhythm Strip Rhythm Strip: A-fib Rate: 156 EKG Initial EKG: Attestation: I personally reviewed and interpreted this EKG as follows: Interpretation: Atrial Fibrillation (Rate is 166. Cures duration 144 ms. QT duration 276 ms. Hewitt is normal. Patient has QRS configuration of the right bundle branch block.) Follow-up EKG: Attestation: I personally reviewed and interpreted this EKG as follows: Interpretation: Sinus Rhythm (Rate is 99. There is premature supraventricular complex noted. Patient does have a right bundle branch block. ID interval is 156 ms. Cures duration is 30 ms. QT durations 188 ms. Hewitt is normal.) Management Discussion w/another healthcare provider: Hospitalist (Plan is to contact hospitalist if 4-hour troponin is trending upwards. If she is trending downward she can be discharged home on prescription for Eliquis. Increase her metoprolol to 25 mg at night. She is presently taking 12.5 mg. She also will need referral to cardiology.) Treatment and Re-Evaluation :: The patient's was checked out to the evening physician. Plan is to make disposition pending 4-hour troponin. If there is significant rise we will need to contact hospitalist for admission. Dr. Szymanski is aware of the patient and will admit patient if there is a significant rise in the 4-hour troponin. <Dr. Juancarlos Damon, DO - Last Filed: 08/19/25 02:13> [facility] Lab Data Labs: Laboratory Results - last 24 hr 08/18/25 08/18/25 08/19/25 20:42 22:42 00:45 WBC 5.6 RBC 3.79 L Hgb 12.1 Hct 37.0 MCV 97.6 MCH 31.9 MCHC 32.7 RDW Std Deviation 49.2 H RDW Coeff of Taras 13.9 Plt Count 204 MPV 10.0 Sodium 139 Potassium 3.8 Chloride 101 Carbon Dioxide 24.7 Anion Gap 13 BUN 30 H Creatinine 1.12 Estim Creat Clear Calc 37.50 L Est GFR (MDRD) Non-Af 50 L BUN/Creatinine Ratio 26.6 H Glucose 220 H Calcium 9.3 Troponin T High Sens 39 H Troponin T Hi Sens 2 Hr 72 H* Troponin T Hi Sens 4Hr 89 H* TSH 1.990 Treatment and Re-Evaluation :: The patient's was checked out to the evening physician. Plan is to make disposition pending 4-hour troponin. If there is significant rise we will need to contact hospitalist for admission. Dr. Szymanski is aware of the patient and will admit patient if there is a significant rise in the 4-hour troponin. Patient was signed out to me while awaiting her 4-hour troponin. The value did trend up from 72-89. When I reevaluated the patient she is resting comfortably in bed. She remains in normal sinus rhythm and blood pressure is just slightly hypertensive to normotensive. She has no complaints at this time. I did discuss the case with the hospitalist. She states that we have a reason for the elevation in the troponin as she underwent cardioversion. Because of this and the fact the patient is pain-free and her post cardioversion EKG does not show ischemic changes she states that she would not perform a stress or echo but would simply only trend the troponins but does feel comfortable with the patient going home as she is pain-free and not having return of atrial fibrillation. I discussed the potential options with the patient. She states at this time as she is pain-free and no longer in the abnormal heart rhythm and will have metoprolol and Eliquis to help treat the symptoms that she would prefer to go home especially as we are not telling her there is a reason for the elevated values. Therefore at this time as she is not having chest discomfort return of A-fib and her vitals have remained stable we will discharge her home and she will continue metoprolol and Eliquis for symptom control. Procedures <Dr. Bassam Leyva MD - Last Filed: 08/19/25 10:20> Procedural Sedation 1 (Initial Baseline): Consent Signed: Yes Any Problems With Anesthesia: No You/Your family experience fever (hyperthermia) w/anesthesia: No Sedation medication: Propofol Dose: 100 Total Moderate Sedation Units: 9 Maliampati Score: Class I ASA Classification: E and II Comment:: Patient initially seen 40 mg of propofol. She required a total of 300. She was given second dose of 30 and third dose of 30. Once desired effect was achieved she was successfully cardioverted using 150 J biphasic mode. On awakening she states she would like to have a spindle sander locally. Will refer her to Dr. Al Browning. She will be placed on anticoagulant because of stent effect and concern for possible pure thrombus. Discharge Plan Triage Chief Complaint: Palpitations ED Provider: Bassam Leyva Dx/Rx/DC Orders Clinical Impression: Atrial fibrillation with RVR, Elevated troponin, Hypertension Instructions: ED AFIB Prescriptions: New Eliquis 5 mg tablet 5 mg PO BID 30 Days Qty: 60 0RF No Action aspirin 81 MG tablet 81 mg PO DAILY@0800 pyridoxine (vitamin B6) 50 MG tablet 100 mg PO DAILY hydroxychloroquine 200 MG tablet 200 mg PO BIDCM calcium carbonate-vitamin D3 [Calcium 600 + D(3)] 1 EACH tablet 2 tab PO DAILY vitamin E (dl, acetate) 400 UNITS capsule 800 units PO DAILY multivitamin with folic acid [Thera] 1 TABLET tablet 1 tab PO DAILY methotrexate sodium 2.5 mg Tablet 7.5 mg PO BID Patient Comments: Tuesday dicyclomine 20 mg tablet 10 mg PO PRN PRN (Reason: ibs) Patient Comments: 1/2 tablet by mouth as directed 10 mg prn folic acid 1 mg Tablet 1 mg PO BID metoprolol succinate 25 mg Tablet Extended Release 24 Hr 12.5 mg PO BID psyllium husk [Daily Fiber] 0.4 gram capsule 0.4 g PO DAILY DermacinRx Bacillex 10 billion cell capsule 100 mmu cells PO DAILY Primary Care Provider: Rashid Segura Referrals: Rashid Segura MD [Primary Care Provider, Family Practice] Al Browning MD [Med Staff - Active Staff, Cardiology] - 5-7 Days Activity Restrictions/Additional Instructions: Please continue to take a full tablet of your metoprolol twice a day as you previously were. Add the Eliquis twice a day to help keep your blood thinner and prevent increased risk for blood clot or stroke. Follow-up with cardiology/Dr. Browning for repeat evaluation. If you develop palpitations once again and the rate/pulse is greater than 100 then you may need to return to the ER for repeat treatment and evaluation. If you develop palpitations but they are short-lived or your heart rate/pulse is under 100 then you are protected based on the metoprolol and Eliquis. If you develop chest discomfort or have any further concerns please return for repeat evaluation as well. Print Language: Maltese Disposition Disposition: Home, Self Care Discharge Date/Time: 08/19/25 02:31
[2025-08-18 23:18] LABS: Troponin T High Sens 2 HR 72 ng/L (<=14)
[2025-08-19] VITALS: BP 141/79; PULSE 79; RESP 12; O2SAT 97
[2025-08-19] MEDS: APIXABAN 5 MG TABLET PO (00:22)
[2025-08-19 01:00] VITALS: BP 152/89; PULSE 77; RESP 15; O2SAT 98
[2025-08-19 01:28] LABS: Troponin T High Sens 4 HR 89 ng/L (<=14)
[2025-08-19 02:30] VITALS: BP 144/80; PULSE 73; RESP 12; TEMP 36.9; O2SAT 98
== END 2025-08-19 02:31 | disposition home or self-care (01) ==
PROVIDERS: Emergency Provider Emergency Medicine; PCP Family Medicine; Visit Provider Emergency Medicine
DX: I48.91 Unspecified atrial fibrillation (principal); R79.89 Other specified abnormal findings of blood chemistry; I10 Essential (primary) hypertension; Z79.899 Other long term (current) drug therapy
CPT/HCPCS: 80048; 84443; 84484; 85027; 92960; 93005; 99152; 99285; A4216

== ENCOUNTER → 2025-09-13 | Outpatient (CLI) | payer MEDICARE, SELFPAY ==
--- NOTE | 2025-09-13 06:40 | ECHOD_ITS ---
Reason For Study Reason For Study: PHTN,AFIB/FLUTTER Procedure This was a 2D Doppler, Color Flow transthoracic echocardiogram. The patient is in sinus rhythm. The study was technically difficult. Due to body habitus. Exam performed in department. Left Ventricle Normal-sized left ventricle. Left ventricular EF by Barba's biplane: 54%. Normal diastolic function. No regional wall motion abnormalities noted. Right Ventricle Normal right ventricle. Normal systolic function. RVSP estimated at: 40 to 45 mmHg. Atria The left and right atria are normal. Mitral Valve Normal mitral valve. Mild mitral regurgitation. No mitral stenosis. Tricuspid Valve Normal tricuspid valve. No tricuspid stenosis. Trace tricuspid regurgitation. Aortic Valve Calcified noncoronary cusp. Trileaflet aortic valve. There is no hemodynamically significant aortic stenosis. There is mild aortic regurgitation. Pulmonic Valve Normal pulmonic valve. Mild pulmonic regurgitation. No pulmonic stenosis. Great Vessels Normal sized aortic root. Normal ascending aorta. Pericardium/Pleural There is a small to moderate pericardial effusion. There are no echocardiographic signs of pretamponade. MMode/2D Measurements & Calculations LVIDd: 4.2 cm IVSd: 1.1 cm Ao root diam: 3.1 cm LVIDs: 3.1 cm LVPWd: 1.0 cm RVDd: 3.2 cm FS: 26.5 % LAV(MOD-bp): 59.0 ml LVAd ap4: 22.6 cm2 LVAd ap2: 22.6 cm2 LAV(MOD-bp) Indexed: 34.2 ml/m2 LVLd ap4: 7.2 cm LVLd ap2: 7.6 cm LAV(MOD-sp2): 56.6 ml EDV(MOD-sp4): 61.4 ml EDV(MOD-sp2): 59.3 ml LAV(MOD-sp4): 58.1 ml EDV(sp4-el): 60.4 ml EDV(sp2-el): 57.0 ml LVAs ap4: 13.6 cm2 LVAs ap2: 13.7 cm2 LVLs ap4: 5.9 cm LVLs ap2: 6.2 cm ESV(MOD-sp4): 27.9 ml ESV(MOD-sp2): 26.1 ml ESV(sp4-el): 26.4 ml ESV(sp2-el): 25.4 ml EF(MOD-sp4): 54.5 % EF(MOD-sp2): 55.9 % EF(sp4-el): 56.3 % SV(MOD-sp4): 33.5 ml SV(MOD-sp2): 33.2 ml EDV(MOD-bp): 60.6 ml SI(MOD-sp4): 19.4 ml/m2 SI(MOD-sp2): 19.2 ml/m2 ESV(MOD-bp): 27.5 ml EF(MOD-bp): 54.6 % SV(sp4-el): 34.0 ml LA dimension(2D): 3.0 cm LA A4 area: 20.0 cm2 RA A4 area: 16.8 cm2 TAPSE: 2.4 cm Time Measurements MV dec time: 0.16 sec Doppler Measurements & Calculations MV E max balaji: 72.5 cm/sec Lat Peak E' Balaji: 6.1 cm/sec Med Peak E' Balaji: 9.4 cm/sec MV A max balaji: 85.3 cm/sec E/E' lat: 11.8 E/E' med: 7.7 MV E/A: 0.85 MV V2 max: 97.7 cm/sec MV P1/2t max balaji: 102.2 cm/sec Ao V2 max: 87.0 cm/sec MV max P.8 mmHg MV P1/2t: 49.9 msec Ao max P.0 mmHg MV V2 mean: 45.3 cm/sec Ao V2 mean: 67.5 cm/sec MV mean P.0 mmHg MV dec slope: 600.6 cm/sec2 Ao mean P.9 mmHg MV V2 VTI: 23.9 cm MVA(P1/2t): 4.4 cm2 Ao V2 VTI: 20.4 cm AV (velocity ratio): 0.84 LV V1 max: 72.1 cm/sec PA V2 max: 63.3 cm/sec TR max balaji: 291.8 cm/sec LV V1 max P.1 mmHg TR max P.1 mmHg LV V1 mean P.1 mmHg LV V1 mean: 48.7 cm/sec LV V1 VTI: 17.2 cm ECHO/Echo Complete Interpretation Summary Normal left ventricular systolic function with EF: 54% by Barba's biplane. Normal left ventricular diastolic function Normal left ventricular wall motion Normal right ventricular systolic function Mild aortic regurgitation Small-moderate pericardial effusion Recommend surveillance of pericardial effusion in 6 months with limited echocar diogram. Consider routine valvular surveillance of mild aortic regurgitation in 3 to 5 y ears, if within goals of care. Ordering Physician: Adrian^^^ Referring Physician: Prosper Segura Performed By: Yesenia Monge, RDCS, RVT
--- OUTSIDE RECORDS SUMMARY | 2025-09-13 06:59 | XMS RPT_ITS | CCD ---
Author Organization [facility] Care Team Providers Care Motion Study Engineer Name Role Phone Akanksha Millan Unavailable Unavailable Akanksha Millan Unavailable Unavailable Akanksha Millan Unavailable [phone] Unavailable Unavailable IAN, DR DANIAL Ellis Attending Unavaila ble IAN, DR DANIAL Ellis Primary Care Unavaila ble IAN, DR DANIAL Ellis Admitting Unavaila ble Unavailable Unavailable Colton, Dr. Akanksha Wyman Referring Unav ailable Colton, Dr. Akanksha Wyman Attending Unav ailable Colton, Dr. Akanksha Wyman Primary Care Unav ailable Akanksha Millan MD Primary Care Provider [phone] Rogers Bradley DO Unavailable Akanksha Millan MD Primary Care Provider [phone] AKANKSHA MILLAN Primary Care Unavailable AKANKSHA MILLAN Primary Care Unavailable AKANKSHA MILLAN Primary Care Unavailable AKANKSHA MILLAN Primary Care Unavailable Akanksha Millan MD Primary Care Provider [phone] Akanksha Millan MD Primary Care Provider [phone] Bernard Bradley DOe R Unavailable Akanksha Millan MD Unavailable Akanksha Millan MD Primary Care Provider [phone] Akanksha Millan MD Unavailable [phone] AKANKSHA MILLAN Referring Unavailable AKANKSHA MILLAN Primary [...] Colton GUTIERREZ, Dr. Mike Primary Care Provider Davian GUTIERREZ, [...] / HYDROcodone; Translations: [Vicodin TABS] Drug Allergy [facility] Work Phone: Amoxicillin / Clavulanate (3 sources) Amoxicillin / Clavulanate; Translations: [Augmentin] Drug Allergy [facility] Work Phone: NSAIDs (3 sources) Diclofenac; Translations: [diclofenac] Drug Allergy [facility] Work Phone: Opioid Agonists (3 sources) traMADol; Translations: [tramadol] Drug Allergy [facility] Work Phone: Penicillins (antibiotic) (3 sources) Amoxicillin; Translations: [Amoxil] Drug Allergy [facility] Work Phone: (20 sources) Acetaminophen / HYDROcodone; Translations: [Vicodin TABS] Drug Allergy 10-30-19 23 [facility] Work [facility]: (12 sources) Amoxicillin; Translations: [Amoxil] [facility]ergy [facility] Work Phone: (12 sources) Amoxicillin / Clavulanate; Translations: [Augmentin] [facility] Work Phone: (20 sources) Diclofenac; Translations: [diclofenac] Drug Allergy 10-30-19 Other [facility] Work Phone: (20 sources) traMADol; Translations: [tramadol] Drug Allergy 06-06-20 [facility] (13 sources) Acetaminophen Drug Allergy 06-06-20 [facility] (14 sources) Amoxicillin; Translations: [amoxicillin trihydrate] Drug Allergy 06-06-20 [facility] (14 sources) Diclofenac; Translations: [diclofenac sodium] Drug Allergy 06-06-20 [facility]a/Vom/[facility] (14 sources) HYDROcodone; Translations: [hydrocodone bitartrate] Drug Allergy 06-06-20 [facility] (14 sources) potassium clavulanate; Translations: [potassium clavulanate] Allergy to substance 06-06-20 [facility] (20 sources) Amoxicillin; Translations: [AMOXICILLIN] Drug Allergy 10-30-19 [facility] (20 sources) Amoxicillin / Clavulanate; Translations: [AMOXICILLIN-POT CLAVULANATE] Drug Allergy 10-30-19 [facility] Work Phone: (3 sources) Acetaminophen / HYDROcodone; Translations: [HYDROCODONE-ACET AMINOPHEN] Drug Allergy 10-30-19 [facility] (1 source) Acetaminophen Drug Allergy 04-05-20 24 [facility] Medications Current Medications Medication Drug [...] tablet 0 09/27/2023 10/02/2023 Active bifidobacterium animalis [id number] unt / lactobacillus acidophilus [id number] unt oral capsule (20 sources) Start: 12-02-2020 L. acidophilus/Bifid . animalis 32 billion cell capsule Take by mouth. 12/02/2020 Active Ca-D3-mag kq-putt-zje-nicole-bor 600 mg calcium- 20 mcg-50 mg tablet (20 sources) Start: 12-05-2019 take 1 tablet by mouth at bedtime Ca-D3-mag xi-wxob-qwl-nicole- bor 600 mg calcium- 20 mcg-50 mg tablet Take 1 tablet by mouth in the morning and at bedtime. 12/05/2019 Active Start: 12-05-2019 take 1 tablet by joann th at bedtime Ca-D3-mag ji-jfla-aem-nicole-bor 600 mg calcium- 20 mcg-50 mg tablet [...] sources) Start: 12-05-2019 take 1 tablet by [facility] once daily pyridoxine (Vitamin B-6) 100 mg [...] dilution, intravenous, Once in imaging, Starting on [facility] 08/30/24 at 1220, For 1 dose, Contrast [...] 0.86 X10 3/uL Normal 0.83-4.51 [facility] Comment on above: Performed By: #### L 500.4050, L100.0100 #### [facility] [address] [place], [address] Absolute Neut 3.1 X10 3/uL Normal 2.0-7.7 [facility] Comment on above: Performed By: #### L 500.4050, L100.0100 #### [facility] [address] [place], [address] Basophils/100 WBC (Bld) 0.4 % Normal 0-1 [facility] Comment on above: Performed By: #### L 500.4050, L100.0100 #### [facility] [address] [place], [address] Eosinophils/100 WBC (Bld) 4.4 % Normal 0-5 [facility] Comment on above: Performed By: #### L 500.4050, L100.0100 #### [facility] [address] [place], [address] Erythrocyte distribution width (RBC) [Ratio] 14.0 % Normal 11.6-14.6 [facility] Comment on above: Performed By: #### L 500.4050, L100.0100 #### [facility] [address] [place], [address] Hematocrit (Bld) [Volume fraction] 35.8 % Low 37-47 [facility] Comment on above: Performed By: #### L 500.4050, L100.0100 #### [facility] [address] [place], [address] Hemoglobin (Bld) [Mass/Vol] 11.9 g/dL Low 12.0-15.0 [facility] Comment on above: Performed By: #### L 500.4050, L100.0100 #### [facility] [address] [place], [address] IG% 0.200 Normal 0.0-0.9 [facility] Comment on above: Result Comment: IG% - Immature Granulocytes (promyelocytes, myelocytes and metamyelocytes) > 1% indicates that a LEFT SHIFT is Present. Performed By: #### L 500.4050, L100.0100 #### [facility] [address] [place], [address] Lymphocytes/100 WBC (Bld) 19.0 % Normal 19-41 [facility] Comment on above: Performed By: #### L 500.4050, L100.0100 #### [facility] [address] [place], [address] MCH (RBC) [Entitic mass] 32.1 pg High 27.0-32.0 [facility] Comment on above: Performed By: #### L 500.4050, L100.0100 #### [facility] [address] [place], [address] MCHC (RBC) [Mass/Vol] 33.2 g/dL Normal 32-36 [facility] Comment on above: Performed By: #### L 500.4050, L100.0100 #### [facility] [address] [place], [address] MCV (RBC) [Entitic vol] 96.5 fL Normal 81-99 [facility] Comment on above: Performed By: #### L 500.4050, L100.0100 #### [facility] [address] [place], [address] Monocytes/100 WBC (Bld) 8.4 % Normal 0-10 [facility] Comment on above: Performed By: #### L 500.4050, L100.0100 #### [facility] [address] [place], [address] Neutrophils/100 WBC (Bld) 67.6 % Normal 47-70 [facility] Comment on above: Performed By: #### L 500.4050, L100.0100 #### [facility] [address] [place], [address] Nucleated RBC (Bld) [#/Vol] 0 10*3/uL Normal 0-5 [facility] Comment on above: Performed By: #### L 500.4050, L100.0100 #### [facility] [address] [place], [address] Platelet mean volume (Bld) [Entitic vol] 9.8 fL Normal 6.2-12.0 [facility] Comment on above: Performed By: #### L 500.4050, L100.0100 #### [facility] [address] [place], [address] Platelets (Bld) [#/Vol] 207 10*3/uL Normal 150-450 [facility] Comment on above: Performed By: #### L 500.4050, L100.0100 #### [facility] [address] [place], [address] RBC (Bld) [#/Vol] 3.71 10*6/uL Low 4.2-5.4 [facility] Comment on above: Performed By: #### L 500.4050, L100.0100 #### [facility] [address] [place], [address] RDW SD 48.6 fl High 35.1-43.9 [facility] Comment on above: Performed By: #### L 500.4050, L100.0100 #### [facility] [address] [place], [address] WBC (Bld) [#/Vol] 4.5 10*3/uL Normal 4.4-11.0 [facility] Comment on above: Performed By: #### L 500.4050, L100.0100 #### [facility] [address] [place], [address] Comprehensive Metabolic Prof ilon 08-02-2025 Albumin [Mass/Vol] 4.1 g/dL Normal 3.4-4.8 [facility] Comment on above: Performed By: #### L 500.4050, L100.0100 #### [facility] [address] [place], [address] Albumin/Globulin [Mass ratio] 1.5 {ratio} Normal 0.9-2.4 [facility] Comment on above: Performed By: #### L 500.4050, L100.0100 #### [facility] [address] [place], [address] ALK PHOS 42 U/L Normal 35-104 [facility] Comment on above: Performed By: #### L 500.4050, L100.0100 #### [facility] [address] [place], [address] ALT [Catalytic activity/Vol] 35 U/L Normal <=34 [facility] Comment on above: Performed By: #### L 500.4050, L100.0100 #### [facility] [address] [place], [address] AST [Catalytic activity/Vol] 44 U/L High <=31 [facility] Comment on above: Performed By: #### L 500.4050, L100.0100 #### [facility] [address] [place], [address] Bilirubin [Mass/Vol] 0.51 mg/dL Normal 0.00-1.30 [facility] Comment on above: Performed By: #### L 500.4050, L100.0100 #### [facility] [address] [place], [address] BUN/CRE 28.4 RATIO High 10-20 [facility] Comment on above: Performed By: #### L 500.4050, L100.0100 #### [facility] [address] [place], [address] Calcium [Mass/Vol] 8.9 mg/dL Normal 7.6-11.0 [facility] Comment on above: Performed By: #### L 500.4050, L100.0100 #### [facility] [address] [place], [address] Chloride [Moles/Vol] 99 mmol/L Normal 98-108 [facility] Comment on above: Performed By: #### L 500.4050, L100.0100 #### [facility] [address] [place], [address] CO2 [Moles/Vol] 27.0 mmol/L Normal 21.0-32.0 [facility] Comment on above: Performed By: #### L 500.4050, L100.0100 #### [facility] [address] [place], [address] Creatinine [Mass/Vol] 0.82 mg/dL Normal 0.70-1.20 [facility] Comment on above: Performed By: #### L 500.4050, L100.0100 #### [facility] [address] [place], [address] GAP 9 Normal 5-15 [facility] Comment on above: Performed By: #### L 500.4050, L100.0100 #### [facility] [address] [place], [address] GFR/1.73 sq M.predicted among non-blacks MDRD (S/P/Bld) [Vol rate/Area] 72 mL/min/{1.73_m2} Normal >60 [facility] Comment on above: Result Comment: mL/m in/1.73m2 CKD-EPI Creatinine Equation (2020) Performed By: #### L 500.4050, L100.0100 #### [facility] [address] [place], [address] Globulin (S) [Mass/Vol] 2.7 g/dL Normal 2.2-4.2 [facility] Comment on above: Performed By: #### L 500.4050, L100.0100 #### [facility] [address] [place], [address] Glucose [Mass/Vol] 80 mg/dL Normal 70-99 [facility] Comment on above: Performed By: #### L 500.4050, L100.0100 #### [facility] [address] [place], [address] Potassium [Moles/Vol] 4.2 mmol/L Normal 3.3-5.1 [facility] Comment on above: Performed By: #### L 500.4050, L100.0100 #### [facility] [address] [place], [address] Sodium [Moles/Vol] 135 mmol/L Normal 133-145 [facility] Comment on above: Performed By: #### L 500.4050, L100.0100 #### [facility] [address] [place], [address] T PROT 6.8 g/dL Normal 5.9-8.4 [facility] Comment on above: Performed By: #### L 500.4050, L100.0100 #### [facility] [address] [place], [address] Urea nitrogen [Mass/Vol] 23 mg/dL High 4-19 [facility] Comment on above: Performed By: #### L 500.4050, L100.0100 #### [facility] [address] [place], [address] Knee 4 or More Viewson 05-23 Knee 4 or More Views [facility] Services [address] [place] [address] Knee 4 or More Views MR#: [id number] Acct: [id number] Name: KIM ROCHA Rep #: [id number] : 1945 F 80 From: Herlinda Ac MD PCP: Dr. Rashid Millan MD Status: REG CLI Study: Knee 4 or More Views Date of Exam: 05/23/25 Exam# [id number] Ordering Dr: Lety Marcelo MD PROCEDURE: KNEE [...] 2. Mild-moderate knee joint effusion. Reading Location: [facility] CC: Dr. Rashid Millan MD; Dr. Lety Marcelo MD Ship Erector: Signed Normal [facility] Knee 4 or More Views [facility] Imaging Services [address] [place] [address] Knee 4 or More Views MR#: [id number] Acct: [id number] Name: KIM ROCHA Rep #: [id number] : 1945 F 80 From: Herlinda Ac MD PCP: Dr. Rashid Millan, MD Status: REG CLI Study: Knee 4 or More Views Date of Exam: 05/23/25 Exam# [id number] Ordering Dr: Lety Marcelo MD PROCEDURE: KNEE [...] Moderately severe medial compartment osteoarthrosis. Reading Location: [facility] CC: Dr. Rashid Millan MD; Dr. Lety Marcelo MD Ship Erector: Signed Normal [facility] Joint Injection Large/Arthro centesis: L kneeon [...] discussed. Consent was given by the patient. [facility] Work Phone: [facility] Work Phone: Absolute lymphocyte countOrd ered By: Lety Marcelo on 04-24-2025 Lymphocytes Auto (Unsp spec) [#/Vol] 1.06 10*3/uL 0.83-4.51 [facility] Absolute neutrophil countOrd ered By: Lety Marcelo on 04-24-2025 Neutrophils (Bld) [#/Vol] 2.6 10*3/uL 2.0-7.7 [facility] Anion gap in Serum or Plasma Ordered By: Lety Marcelo on 04-24-2025 Anion gap [Moles/Vol] 10 mmol/L 5-15 [facility] Automated lymphocyte count a s percentage of total leukocytesOrdered By: Letymirtha Marcelo on 04-24-2025 Lymphocytes/100 WBC Auto (Unsp spec) 24.0 % - [facility] BUN/creatinine ratioOrdered By: Letymirtha Marcelo on 04-24-2025 Urea nitrogen/Creatinine [Mass ratio] 22.1 mg/mg High 10-20 [facility] Basophil percentageOrdered B y: Lety Marcelo on 04-24-2025 Basophils/100 WBC (Bld) 0.5 % 0-1 [facility] Bilirubin, totalOrdered By: [facility] Davian on 04-24-2025 Bilirubin [Mass/Vol] 0.40 mg/dL 0.00-1.30 [facility] CBC W/Diff, Automatedon 03-28 Absolute Lymph 1.06 X10 3/uL Normal 0.83-4.51 [facility] Comment on above: Performed By: #### L 500.4050, L100.0100 #### [facility] [address] [place], [address] Absolute Neut 2.6 X10 3/uL Normal 2.0-7.7 [facility] Comment on above: Performed By: #### L 500.4050, L100.0100 #### [facility] [address] [place], [address] Basophils/100 WBC (Bld) 0.5 % Normal 0-1 [facility] Comment on above: Performed By: #### L 500.4050, L100.0100 #### [facility] [address] [place], [address] Eosinophils/100 WBC (Bld) 4.1 % Normal 0-5 [facility] Comment on above: Performed By: #### L 500.4050, L100.0100 #### [facility] [address] [place], [address] Erythrocyte distribution width (RBC) [Ratio] 13.9 % Normal 11.6-14.6 [facility] Comment on above: Performed By: #### L 500.4050, L100.0100 #### [facility] [address] [place], [address] Hematocrit (Bld) [Volume fraction] 37.3 % Normal 37-47 [facility] Comment on above: Performed By: #### L 500.4050, L100.0100 #### [facility] [address] [place], [address] Hemoglobin (Bld) [Mass/Vol] 12.0 g/dL Normal 12.0-15.0 [facility] Comment on above: Performed By: #### L 500.4050, L100.0100 #### [facility] [address] [place], [address] IG% 0.500 Normal 0.0-0.9 [facility] Comment on above: Result Comment: IG% - Immature Granulocytes (promyelocytes, myelocytes and metamyelocytes) > 1% indicates that a LEFT SHIFT is Present. Performed By: #### L 500.4050, L100.0100 #### [facility] [address] [place], [address] Lymphocytes/100 WBC (Bld) 24.0 % Normal 19-41 [facility] Comment on above: Performed By: #### L 500.4050, L100.0100 #### [facility] [address] [place], [address] MCH (RBC) [Entitic mass] 31.7 pg Normal 27.0-32.0 [facility] Comment on above: Performed By: #### L 500.4050, L100.0100 #### [facility] [address] [place], [address] MCHC (RBC) [Mass/Vol] 32.2 g/dL Normal 32-36 [facility] Comment on above: Performed By: #### L 500.4050, L100.0100 #### [facility] [address] [place], [address] MCV (RBC) [Entitic vol] 98.4 fL Normal 81-99 [facility] Comment on above: Performed By: #### L 500.4050, L100.0100 #### [facility] [address] [place], [address] Monocytes/100 WBC (Bld) 11.6 % High 0-10 [facility] Comment on above: Performed By: #### L 500.4050, L100.0100 #### [facility] [address] [place], [address] Neutrophils/100 WBC (Bld) 59.3 % Normal 47-70 [facility] Comment on above: Performed By: #### L 500.4050, L100.0100 #### [facility] [address] [place], [address] Nucleated RBC (Bld) [#/Vol] 0 10*3/uL Normal 0-5 [facility] Comment on above: Performed By: #### L 500.4050, L100.0100 #### [facility] [address] [place], [address] Platelet mean volume (Bld) [Entitic vol] 10.9 fL Normal 6.2-12.0 [facility] Comment on above: Performed By: #### L 500.4050, L100.0100 #### [facility] [address] [place], [address] Platelets (Bld) [#/Vol] 186 10*3/uL Normal 150-450 [facility] Comment on above: Performed By: #### L 500.4050, L100.0100 #### [facility] [address] [place], [address] RBC (Bld) [#/Vol] 3.79 10*6/uL Low 4.2-5.4 [facility] Comment on above: Performed By: #### L 500.4050, L100.0100 #### [facility] [address] [place], [address] RDW SD 50.0 fl High 35.1-43.9 [facility] Comment on above: Performed By: #### L 500.4050, L100.0100 #### [facility] [address] [place], [address] WBC (Bld) [#/Vol] 4.4 10*3/uL Normal 4.4-11.0 [facility] Comment on above: Performed By: #### L 500.4050, L100.0100 #### [facility] [address] [place], [address] Carbon dioxide, total [Moles /volume] in Central venous bloodOrdered By: Lety Marcelo on 04-24-2025 CO2 [Moles/Vol] 26.6 mmol/L 21.0-32.0 [facility] Chloride assayOrdered By: Nick Marcelo on 04-24-2025 Chloride [Moles/Vol] 101 mmol/L 98-108 [facility] Comprehensive Metabolic Prof ilon 04-24-2025 Albumin [Mass/Vol] 4.2 g/dL Normal 3.4-4.8 [facility] Comment on above: Performed By: #### L 500.4050, L100.0100 #### [facility] [address] [place], [address] Albumin/Globulin [Mass ratio] 1.6 {ratio} Normal 0.9-2.4 [facility] Comment on above: Performed By: #### L 500.4050, L100.0100 #### [facility] [address] [place], [address] ALK PHOS 39 U/L Normal 35-104 [facility] Comment on above: Performed By: #### L 500.4050, L100.0100 #### [facility] [address] [place], [address] ALT [Catalytic activity/Vol] 33 U/L Normal <=34 [facility] Comment on above: Performed By: #### L 500.4050, L100.0100 #### [facility] [address] [place], [address] AST [Catalytic activity/Vol] 37 U/L High <=31 [facility] Comment on above: Performed By: #### L 500.4050, L100.0100 #### [facility] [address] [place], [address] Bilirubin [Mass/Vol] 0.40 mg/dL Normal 0.00-1.30 [facility] Comment on above: Performed By: #### L 500.4050, L100.0100 #### [facility] [address] [place], [address] BUN/CRE 22.1 RATIO High 10-20 [facility] Comment on above: Performed By: #### L 500.4050, L100.0100 #### [facility] [address] [place], [address] Calcium [Mass/Vol] 9.1 mg/dL Normal 7.6-11.0 [facility] Comment on above: Performed By: #### L 500.4050, L100.0100 #### [facility] [address] [place], [address] Chloride [Moles/Vol] 101 mmol/L Normal 98-108 [facility] Comment on above: Performed By: #### L 500.4050, L100.0100 #### [facility] [address] [place], [address] CO2 [Moles/Vol] 26.6 mmol/L Normal 21.0-32.0 [facility] Comment on above: Performed By: #### L 500.4050, L100.0100 #### [facility] [address] [place], [address] Creatinine [Mass/Vol] 1.01 mg/dL Normal 0.70-1.20 [facility] Comment on above: Performed By: #### L 500.4050, L100.0100 #### [facility] [address] [place], [address] GAP 10 Normal 5-15 [facility] Comment on above: Performed By: #### L 500.4050, L100.0100 #### [facility] [address] [place], [address] GFR/1.73 sq M.predicted among non-blacks MDRD (S/P/Bld) [Vol rate/Area] 57 mL/min/{1.73_m2} Low >60 [facility] Comment on above: Result Comment: mL/m in/1.73m2 CKD-EPI Creatinine Equation (2020) Performed By: #### L 500.4050, L100.0100 #### [facility] [address] [place], [address] Globulin (S) [Mass/Vol] 2.6 g/dL Normal 2.2-4.2 [facility] Comment on above: Performed By: #### L 500.4050, L100.0100 #### [facility] [address] [place], [address] Glucose [Mass/Vol] 79 mg/dL Normal 70-99 [facility] Comment on above: Performed By: #### L 500.4050, L100.0100 #### [facility] [address] [place], [address] Potassium [Moles/Vol] 4.0 mmol/L Normal 3.3-5.1 [facility] Comment on above: Performed By: #### L 500.4050, L100.0100 #### [facility] [address] [place], [address] Sodium [Moles/Vol] 138 mmol/L Normal 133-145 [facility] Comment on above: Performed By: #### L 500.4050, L100.0100 #### [facility] [address] [place], [address] T PROT 6.8 g/dL Normal 5.9-8.4 [facility] Comment on above: Performed By: #### L 500.4050, L100.0100 #### [facility] [address] [place], [address] Urea nitrogen [Mass/Vol] 22 mg/dL High 4-19 [facility] Comment on above: Performed By: #### L 500.4050, L100.0100 #### [facility] [address] [place], [address] Eosinophil percentageOrdered By: Lety Marcelo on 04-24-2025 Eosinophils/100 WBC (Bld) 4.1 % 0-5 [facility] Erythrocyte distribution wid th ratioOrdered By: Lety Marcelo on 04-24-2025 Erythrocyte distribution width (RBC) [Ratio] 13.9 % 11.6-14.6 [facility] Erythrocyte distribution wid th standard deviationOrdered By: Lety Marcelo on 04-24-2025 Erythrocyte distribution width (RBC) [Ratio] 50.0 fl High 35.1-43.9 [facility] Glomerular filtration rate ( GFR) estimation/1.73 sq m using serum, plasma, or whole bOrdered By: Lety Marcelo on 04-24-2025 GFR/1.73 sq M.predicted among non-blacks MDRD (S/P/Bld) [Vol rate/Area] 57 mL/min/{1.73_m2} Low >60 [facility] Comment on above: mL/min/1.73m2 CKD-EP I Creatinine Equation (2020) Hematocrit Auto (Bld) [Volum e fraction]Ordered By: Lety Marcelo on 04-24-2025 Hematocrit (Bld) [Volume fraction] 37.3 % 37-47 [facility] Hemoglobin measurementOrdere d By: Lety Marcelo on 04-24-2025 Hemoglobin (Bld) [Mass/Vol] 12.0 g/dL 12.0-15.0 [facility] Immature granulocytes/100 WB C Auto (Bld)Ordered By: Lety Marcelo on 04-24-2025 Immature granulocytes/100 WBC (Bld) 0.500 % 0.0-0.9 [facility] Comment on above: IG% - Immature Granu locytes (promyelocytes, myelocytes and metamyelocytes) > 1% indicates that a LEFT SHIFT is Present. Laboratory - Chemistry and C hemistry - challengeOrdered By: Lety Marcelo on 04-24-2025 AST [Catalytic activity/Vol] 37 U/L High <32 [facility] MCV (mean corpuscular volume ) determinationOrdered By: Lety Marcelo on 04-24-2025 MCV (RBC) [Entitic vol] 98.4 fL 81-99 [facility] Mean corpuscular hemoglobin (MCH) determinationOrdered By: Lety Marcelo on 04-24-2025 MCH (RBC) [Entitic mass] 31.7 pg 27.0-32.0 [facility] Mean corpuscular hemoglobin concentration (MCHC) determinationOrdered By: Lety Marcelo on 04-24-2025 MCHC (RBC) [Mass/Vol] 32.2 g/dL 32-36 [facility] Mean platelet volume determi nationOrdered By: Lety Marcelo on 04-24-2025 Platelet mean volume (Bld) [Entitic vol] 10.9 fL 6.2-12.0 [facility] Monocyte percentageOrdered B y: Lety Marcelo on 04-24-2025 Monocytes/100 WBC (Bld) 11.6 % High 0-10 [facility] Neutrophil percentageOrdered By: Lety Marcelo on 04-24-2025 Neutrophils/100 WBC (Bld) 59.3 % 47-70 [facility] Nucleated red blood cell per centageOrdered By: Lety Marcelo on 04-24-2025 Nucleated RBC/100 WBC (Bld) [Ratio] 0 % 0-5 [facility] Platelet countOrdered By: Nick Marcelo on 04-24-2025 Platelets (Bld) [#/Vol] 186 10*3/uL 150-450 [facility] Potassium measurement (mass/ volume)Ordered By: Lety Marcelo on 04-24-2025 Potassium (Unsp spec) [Mass/Vol] 4.0 mmol/L 3.3-5.1 [facility] RBC Auto (Bld) [#/Vol]Ordere d By: Lety Marcelo on 04-24-2025 RBC (Bld) [#/Vol] 3.79 10*6/uL Low 4.2-5.4 [facility] Serum creatinine measurement (mass/volume)Ordered By: Lety Marcelo on 04-24-2025 Creatinine [Mass/Vol] 1.01 mg/dL 0.70-1.20 [facility] Serum globulin measurementOr dered By: Lety Marcelo on 04-24-2025 Globulin (S) [Mass/Vol] 2.6 g/dL 2.2-4.2 [facility] Serum glucose measurement (m ass/volume)Ordered By: Lety Marcelo on 04-24-2025 Glucose [Mass/Vol] 79 mg/dL 70-99 [facility] Serum or plasma alanine steinberg otransferase (ALT) measurementOrdered By: Lety Marcelo on 04-24-2025 ALT [Catalytic activity/Vol] 33 U/L <35 [facility] Serum or plasma albumin koki urement (mass/volume)Ordered By: Lety Marcelo on 04-24-2025 Albumin [Mass/Vol] 4.2 g/dL 3.4-4.8 [facility] Serum or plasma albumin/glob ulin mass ratioOrdered By: Lety Marcelo on 04-24-2025 Albumin/Globulin [Mass ratio] 1.6 {ratio} 0.9-2.4 [facility] Serum or plasma alkaline lisa sphatase measurementOrdered By: Lety Marcelo on 04-24-2025 ALP [Catalytic activity/Vol] 39 U/L 35-104 [facility] Serum or plasma calcium koki urement (mass/volume)Ordered By: Lety Marcelo on 04-24-2025 Calcium [Mass/Vol] 9.1 mg/dL 7.6-11.0 [facility] Serum or plasma urea nitroge n measurement (mass/volume)Ordered By: Lety Marcelo on 04-24-2025 Urea nitrogen [Mass/Vol] 22 mg/dL High 4-19 [facility] Sodium levelOrdered By: Srinivasa Marcelo on 04-24-2025 Sodium [Moles/Vol] 138 mmol/L 133-145 [facility] Total proteinOrdered By: Yasmine Marcelo on 04-24-2025 Protein [Mass/Vol] 6.8 g/dL 5.9-8.4 [facility] White blood cell (WBC) count Ordered By: Lety Marcelo on 04-24-2025 WBC (Bld) [#/Vol] 4.4 10*3/uL 4.4-11.0 [facility] Absolute lymphocyte countOrd ered By: Lety Marcelo on 02-06-2025 Lymphocytes Auto (Unsp spec) [#/Vol] 1.36 10*3/uL 0.83-4.51 [facility] Absolute neutrophil countOrd ered By: Lety Marcelo on 02-06-2025 Neutrophils (Bld) [#/Vol] 1.9 10*3/uL Low 2.0-7.7 [facility] Anion gap in Serum or Plasma Ordered By: Lety Marcelo on 02-06-2025 Anion gap [Moles/Vol] 9 mmol/L 5-15 [facility] Automated lymphocyte count a s percentage of total leukocytesOrdered By: Lety Marcelo on 02-06-2025 Lymphocytes/100 WBC Auto (Unsp spec) 33.7 % 19-41 [facility] BUN/creatinine ratioOrdered By: Lety Marcelo on 02-06-2025 Urea nitrogen/Creatinine [Mass ratio] 21.3 mg/mg High 10-20 [facility] Basophil percentageOrdered B y: Lety Marcelo on 02-06-2025 Basophils/100 WBC (Bld) 1.0 % 0-1 [facility] Bilirubin, totalOrdered By: Lety Marcelo on 02-06-2025 Bilirubin [Mass/Vol] 0.32 mg/dL 0.00-1.30 [facility] CBC W/Diff, Automatedon 01-24 PLT EST ADEQUATE Normal ADEQ [facility] Comment on above: Performed By: #### L 500.4050, L100.0100 #### [facility] [address] [place], [address] Carbon dioxide, total [Moles /volume] in Central venous bloodOrdered By: Lety Marcelo on 02-06-2025 CO2 [Moles/Vol] 26.1 mmol/L 21.0-32.0 [facility] Chloride assayOrdered By: Nick Marcelo on 02-06-2025 Chloride [Moles/Vol] 98 mmol/L 98-108 [facility] Comprehensive Metabolic Prof ilon 02-06-2025 Albumin [Mass/Vol] 4.2 g/dL Normal 3.4-4.8 [facility] Comment on above: Performed By: #### L 500.4050, L100.0100 #### [facility] [address] [place], [address] Albumin/Globulin [Mass ratio] 1.4 {ratio} Normal 0.9-2.4 [facility] Comment on above: Performed By: #### L 500.4050, L100.0100 #### [facility] [address] [place], [address] ALK PHOS 47 U/L Normal 35-104 [facility] Comment on above: Performed By: #### L 500.4050, L100.0100 #### [facility] [address] [place], [address] ALT [Catalytic activity/Vol] 34 U/L Normal <=34 [facility] Comment on above: Performed By: #### L 500.4050, L100.0100 #### [facility] [address] [place], [address] AST [Catalytic activity/Vol] 45 U/L High <=31 [facility] Comment on above: Performed By: #### L 500.4050, L100.0100 #### [facility] [address] [place], [address] Bilirubin [Mass/Vol] 0.32 mg/dL Normal 0.00-1.30 [facility] Comment on above: Performed By: #### L 500.4050, L100.0100 #### [facility] [address] [place], [address] BUN/CRE 21.3 RATIO High 10-20 [facility] Comment on above: Performed By: #### L 500.4050, L100.0100 #### [facility] [address] [place], [address] Calcium [Mass/Vol] 9.7 mg/dL Normal 7.6-11.0 [facility] Comment on above: Performed By: #### L 500.4050, L100.0100 #### [facility] [address] [place], [address] Chloride [Moles/Vol] 98 mmol/L Normal 98-108 [facility] Comment on above: Performed By: #### L 500.4050, L100.0100 #### [facility] [address] [place], [address] CO2 [Moles/Vol] 26.1 mmol/L Normal 21.0-32.0 [facility] Comment on above: Performed By: #### L 500.4050, L100.0100 #### [facility] [address] [place], [address] Creatinine [Mass/Vol] 0.90 mg/dL Normal 0.70-1.20 [facility] Comment on above: Performed By: #### L 500.4050, L100.0100 #### [facility] [address] [place], [address] GAP 9 Normal 5-15 [facility] Comment on above: Performed By: #### L 500.4050, L100.0100 #### [facility] [address] [place], [address] GFR/1.73 sq M.predicted among non-blacks MDRD (S/P/Bld) [Vol rate/Area] 65 mL/min/{1.73_m2} Normal >60 [facility] Comment on above: Result Comment: mL/m in/1.73m2 CKD-EPI Creatinine Equation (2020) Performed By: #### L 500.4050, L100.0100 #### [facility] [address] [place], [address] Globulin (S) [Mass/Vol] 3.0 g/dL Normal 2.2-4.2 [facility] Comment on above: Performed By: #### L 500.4050, L100.0100 #### [facility] [address] [place], [address] Glucose [Mass/Vol] 82 mg/dL Normal 70-99 [facility] Comment on above: Performed By: #### L 500.4050, L100.0100 #### [facility] [address] [place], [address] Potassium [Moles/Vol] 4.5 mmol/L Normal 3.3-5.1 [facility] Comment on above: Performed By: #### L 500.4050, L100.0100 #### [facility] [address] [place], [address] Sodium [Moles/Vol] 133 mmol/L Normal 133-145 [facility] Comment on above: Performed By: #### L 500.4050, L100.0100 #### [facility] [address] [place], [address] T PROT 7.1 g/dL Normal 5.9-8.4 [facility] Comment on above: Performed By: #### L 500.4050, L100.0100 #### [facility] [address] [place], [address] Urea nitrogen [Mass/Vol] 19 mg/dL Normal 4-19 [facility] Comment on above: Performed By: #### L 500.4050, L100.0100 #### [facility] [address] [place], [address] Eosinophil percentageOrdered By: Lety Marcelo on 02-06-2025 Eosinophils/100 WBC (Bld) 6.0 % High 0-5 [facility] Erythrocyte distribution wid th ratioOrdered By: [facility] Davian on 02-06-2025 Erythrocyte distribution width (RBC) [Ratio] 13.8 % 11.6-14.6 [facility] Erythrocyte distribution wid th standard deviationOrdered By: Leyt Marcelo on 02-06-2025 Erythrocyte distribution width (RBC) [Ratio] 48.1 fl High 35.1-43.9 [facility] Glomerular filtration rate ( GFR) estimation/1.73 sq m using serum, plasma, or whole bOrdered By: Lety Marcelo on 02-06-2025 GFR/1.73 sq M.predicted among non-blacks MDRD (S/P/Bld) [Vol rate/Area] 65 mL/min/{1.73_m2} >60 [facility] Comment on above: mL/min/1.73m2 CKD-EP I Creatinine Equation (2020) Hematocrit Auto (Bld) [Volum e fraction]Ordered By: Lety Marcelo on 02-06-2025 Hematocrit (Bld) [Volume fraction] 37.5 % 37-47 [facility] Hemoglobin measurementOrdere d By: Lety Marcelo on 02-06-2025 Hemoglobin (Bld) [Mass/Vol] 12.4 g/dL 12.0-15.0 [facility] Immature granulocytes/100 WB C Auto (Bld)Ordered By: Lety Marcelo on 02-06-2025 Immature granulocytes/100 WBC (Bld) 0.500 % 0.0-0.9 [facility] Comment on above: IG% - Immature Granu locytes (promyelocytes, myelocytes and metamyelocytes) > 1% indicates that a LEFT SHIFT is Present. Laboratory - Chemistry and C hemistry - challengeOrdered By: Lety Marcelo on 02-06-2025 AST [Catalytic activity/Vol] 45 U/L High <32 [facility] MCV (mean corpuscular volume ) determinationOrdered By: Lety Marcelo on 02-06-2025 MCV (RBC) [Entitic vol] 95.9 fL 81-99 [facility] Mean corpuscular hemoglobin (MCH) determinationOrdered By: Lety Marcelo on 02-06-2025 MCH (RBC) [Entitic mass] 31.7 pg 27.0-32.0 [facility] Mean corpuscular hemoglobin concentration (MCHC) determinationOrdered By: Lety Marcelo on 02-06-2025 MCHC (RBC) [Mass/Vol] 33.1 g/dL 32-36 [facility] Mean platelet volume determi nationOrdered By: Lety Marcelo on 02-06-2025 Platelet mean volume (Bld) [Entitic vol] 10.4 fL 6.2-12.0 [facility] Monocyte percentageOrdered B y: Lety Marcelo on 02-06-2025 Monocytes/100 WBC (Bld) 12.7 % High 0-10 [facility] Neutrophil percentageOrdered By: Lety Marcelo on 02-06-2025 Neutrophils/100 WBC (Bld) 46.1 % Low 47-70 [facility] Nucleated red blood cell per centageOrdered By: Lety Marcelo on 02-06-2025 Nucleated RBC/100 WBC (Bld) [Ratio] 0 % 0-5 [facility] Platelet countOrdered By: Nick Marcelo on 02-06-2025 Platelets (Bld) [#/Vol] 187 10*3/uL 150-450 [facility] Platelet estimateOrdered By: Lety Marcelo on 02-06-2025 Platelets LM Ql (Bld) ADEQUATE ADEQ [facility] Potassium measurement (mass/ volume)Ordered By: Lety Marcelo on 02-06-2025 Potassium (Unsp spec) [Mass/Vol] 4.5 mmol/L 3.3-5.1 [facility] RBC Auto (Bld) [#/Vol]Ordere d By: Lety Marcelo on 02-06-2025 RBC (Bld) [#/Vol] 3.91 10*6/uL Low 4.2-5.4 [facility] Serum creatinine measurement (mass/volume)Ordered By: Lety Marcelo on 02-06-2025 Creatinine [Mass/Vol] 0.90 mg/dL 0.70-1.20 [facility] Serum globulin measurementOr dered By: Lety Marcelo on 02-06-2025 Globulin (S) [Mass/Vol] 3.0 g/dL 2.2-4.2 [facility] Serum glucose measurement (m ass/volume)Ordered By: Lety Marcelo on 02-06-2025 Glucose [Mass/Vol] 82 mg/dL 70-99 [facility] Serum or plasma alanine steinberg otransferase (ALT) measurementOrdered By: Lety Marcelo on 02-06-2025 ALT [Catalytic activity/Vol] 34 U/L <35 [facility] Serum or plasma albumin koki urement (mass/volume)Ordered By: Lety Marcelo on 02-06-2025 Albumin [Mass/Vol] 4.2 g/dL 3.4-4.8 [facility] Serum or plasma albumin/glob ulin mass ratioOrdered By: Lety Marcelo on 02-06-2025 Albumin/Globulin [Mass ratio] 1.4 {ratio} 0.9-2.4 [facility] Serum or plasma alkaline lisa sphatase measurementOrdered By: Lety Marcelo on 02-06-2025 ALP [Catalytic activity/Vol] 47 U/L 35-104 [facility] Serum or plasma calcium koki urement (mass/volume)Ordered By: Lety Marcelo on 02-06-2025 Calcium [Mass/Vol] 9.7 mg/dL 7.6-11.0 [facility] Serum or plasma urea nitroge n measurement (mass/volume)Ordered By: Lety Marcelo on 02-06-2025 Urea nitrogen [Mass/Vol] 19 mg/dL 4-19 [facility] Sodium levelOrdered By: Srinivasa Marcelo on 02-06-2025 Sodium [Moles/Vol] 133 mmol/L 133-145 [facility] Total proteinOrdered By: Yasmine Marcelo on 02-06-2025 Protein [Mass/Vol] 7.1 g/dL 5.9-8.4 [facility] White blood cell (WBC) count Ordered By: Lety Marcelo on 02-06-2025 WBC (Bld) [#/Vol] 4.0 10*3/uL Low 4.4-11.0 [facility] C-REACTIVE PROTEINon 025 CRP [Mass/Vol] mg/L Normal <8.0 [facility] Comment on above: Performed By: #### 8 09, 35387, 75017, 925, 7799 #### [facility] [address], [address] [place] [address] Obstetrics Nurse Practitioner: Cuba Monk MD CBC (INCLUDES DIFF/PLT)on Basophils (Bld) [#/Vol] 0.039 10*3/uL Normal 0-200 [facility] Comment on above: Performed By: #### 8 09, 73652, 89910, 925, 3699 #### [facility] [address], [address] [place] [address] Obstetrics Nurse Practitioner: Cuba Monk MD Basophils/100 WBC (Bld) 0.8 % Normal [facility] Comment on above: Performed By: #### 8 09, 49728, 19928, 926, 0499 #### [facility] [address], [address] [place] [address] Obstetrics Nurse Practitioner: Cuba Monk MD Eosinophils (Bld) [#/Vol] 0.24 10*3/uL Normal 15-500 [facility] Comment on above: Performed By: #### 8 09, , , 92, 6399 #### [facility] [place] [address] Obstetrics Nurse Practitioner: Cuba Monk MD Eosinophils/100 WBC (Bld) 4.9 % Normal [facility] Comment on above: Performed By: #### 8 09, , , 92, 6399 #### [facility] [place] [address] Obstetrics Nurse Practitioner: Cuba Monk MD Erythrocyte distribution width (RBC) [Ratio] 12.8 % Normal 11.0-15.0 [facility] Comment on above: Performed By: #### 8 09, , , 92, 63 #### [facility] [place] [address] Obstetrics Nurse Practitioner: Cuba Monk MD Hematocrit (Bld) [Volume fraction] 37.4 % Normal 35.0-45.0 [facility] Comment on above: Performed By: #### 8 09, , , 92, 6399 #### [facility] [place] [address] Obstetrics Nurse Practitioner: Cuba Monk MD Hemoglobin (Bld) [Mass/Vol] 12.6 g/dL Normal 11.7-15.5 [facility] Comment on above: Performed By: #### 8 , , , 92, 6399 #### [facility] [place] [address] Obstetrics Nurse Practitioner: Cuba Monk MD Lymphocytes (Bld) [#/Vol] 0.862 10*3/uL Normal 850-3900 [facility] Comment on above: Performed By: #### 8 , , , 92, 6399 #### [facility] [place] [address] [place] [address] Obstetrics Nurse Practitioner: Cuba Monk MD Lymphocytes/100 WBC (Bld) 17.6 % Normal [facility] Comment on above: Performed By: #### 8 , , , , 63 #### [facility] of [address], [address] [place] [address] Obstetrics Nurse Practitioner: Cuba Monk MD MCH (RBC) [Entitic mass] 32.0 pg Normal 27.0-33.0 [facility] Comment on above: Performed By: #### 8 , , , , 63 #### [facility] [place] [address] Obstetrics Nurse Practitioner: Cuba Monk MD MCHC (RBC) [Mass/Vol] 33.7 [...] , , 63 #### [facility] [place] [address] Obstetrics Nurse Practitioner: Cuba Monk MD MCV (RBC) [Entitic vol] 94.9 fL Normal 80.0-100.0 [facility] Comment on above: Performed By: #### 8 , , , 92, 63 #### [facility] of [address], [address] [place] [address] Obstetrics Nurse Practitioner: Cuba Monk MD Monocytes (Bld) [#/Vol] 0.456 10*3/uL Normal 200-950 [facility] Comment on above: Performed By: #### 8 , , , 92, 6399 #### [facility] of [address], [address] [place] [address] Obstetrics Nurse Practitioner: Cuba Monk MD Monocytes/100 WBC (Bld) 9.3 % Normal [facility] Comment on above: Performed By: #### 8 09, , 94256, 927, 6399 #### [facility] [place] [address] Obstetrics Nurse Practitioner: Cuba Monk MD Neutrophils (Bld) [#/Vol] 3.303 10*3/uL Normal 3494-3532 [facility] Comment on above: Performed By: #### 8 09, , 77884, 927, 6399 #### [facility] [place] [address] Obstetrics Nurse Practitioner: Cuba Monk MD Neutrophils/100 WBC (Bld) 67.4 % Normal [facility] Comment on above: Performed By: #### 8 09, , 06366, 927, 6399 #### [facility] [place] [address] Obstetrics Nurse Practitioner: Cuba Monk MD Platelet mean volume (Bld) [Entitic vol] 10.7 fL Normal 7.5-12.5 [facility] Comment on above: Performed By: #### 8 09, , 98979, 927, 6399 #### [facility] [place] [address] Obstetrics Nurse Practitioner: Cuba Monk MD Platelets (Bld) [#/Vol] 214 10*3/uL Normal 140-400 [facility] Comment on above: Performed By: #### 8 09, , 46291, 927, 6399 #### [facility] [place] [address] Obstetrics Nurse Practitioner: Cuba Monk MD RBC (Bld) [#/Vol] 3.94 10*6/uL Normal 3.80-5.10 [facility] Comment on above: Performed By: #### 8 09, , 87496, 927, 6399 #### [facility] [place] [address] Obstetrics Nurse Practitioner: Cuba Monk MD WBC (Bld) [#/Vol] 4.9 10*3/uL Normal 3.8-10.8 [facility] Comment on above: Performed By: #### 8 09, 98474, 33165, 927, 6399 #### [facility] [place] [address] Obstetrics Nurse Practitioner: Cuba Monk MD COMPREHENSIVE METABOLIC PANE L W/ANION GAPon 12-21-2024 Albumin [Mass/Vol] 4.3 g/dL Normal 3.6-5.1 [facility] Comment on above: Order Comment: FASTI NG:NO FASTING: NO Performed By: #### 8 09, 32522, 65897, 927, 6399 #### [facility] [place] [address] Obstetrics Nurse Practitioner: Cuba Monk MD ALP [Catalytic activity/Vol] 41 U/L Normal 37-153 [facility] Comment on above: Order Comment: FASTI NG:NO FASTING: NO Performed By: #### 8 09, 59385, 08595, 927, 6399 #### [facility] [place] [address] Obstetrics Nurse Practitioner: Cuba Monk MD ALT [Catalytic activity/Vol] 26 U/L Normal 6-29 [facility] Comment on above: Order Comment: FASTI NG:NO FASTING: NO Performed By: #### 8 09, 51497, 79618, 927, 6399 #### [facility] [place] [address] Obstetrics Nurse Practitioner: Cuba Monk MD AST [Catalytic activity/Vol] 34 U/L Normal 10-35 [facility] Comment on above: Order Comment: FASTI NG:NO FASTING: NO Performed By: #### 8 09, 22301, 41335, 927, 6399 #### [facility] [place] [address] Obstetrics Nurse Practitioner: Cuba Monk MD Bilirubin [Mass/Vol] 0.5 mg/dL Normal 0.2-1.2 [facility] Comment on above: Order Comment: FASTI NG:NO FASTING: NO Performed By: #### 8 09, 56058, 76344, 927, 6399 #### [facility] [place] [address] Obstetrics Nurse Practitioner: Cuba Monk MD Calcium [Mass/Vol] 9.3 mg/dL Normal 8.6-10.4 [facility] Comment on above: Order Comment: FASTI NG:NO FASTING: NO Performed By: #### 8 09, , 63446, 92, 6399 #### [facility] [place] [address] Obstetrics Nurse Practitioner: Cuba Monk MD Chloride [Moles/Vol] 103 mmol/L Normal 98-110 [facility] Comment on above: Order Comment: FASTI NG:NO FASTING: NO Performed By: #### 8 09, , 10260, 92, 6399 #### [facility] [place] [address] Obstetrics Nurse Practitioner: Cuba Monk MD CO2 [Moles/Vol] 31 mmol/L Normal 20-32 [facility] Comment on above: Order Comment: FASTI NG:NO FASTING: NO Performed By: #### 8 09, 68067, 00464, 92, 6399 #### [facility] [place] [address] Obstetrics Nurse Practitioner: Cuba Monk MD Creatinine [Mass/Vol] 0.82 mg/dL Normal 0.60-1.00 [facility] Comment on above: Order Comment: FASTI NG:NO FASTING: NO Performed By: #### 8 09, 30500, 94691, 927, 6399 #### [facility] [place] [address] Obstetrics Nurse Practitioner: Cuba Monk MD ELECTROLYTE BALANCE 6 mmol/L (calc) Low 7-17 [facility] Comment on above: Order Comment: FASTI NG:NO FASTING: NO Performed By: #### 8 09, 41962, 43680, 927, 6399 #### [facility] [place] [address] Obstetrics Nurse Practitioner: Cuba Monk MD GFR/1.73 sq M.predicted among non-blacks MDRD (S/P/Bld) [Vol rate/Area] 73 mL/min/{1.73_m2} Normal > OR = 60 [facility] Comment on above: Order Comment: FASTI NG:NO FASTING: NO Performed By: #### 8 09, 97182, 14564, 927, 6399 #### [facility] [facility] [place] [address] Obstetrics Nurse Practitioner: Cuba Monk MD Glucose [Mass/Vol] 74 mg/dL Normal 65-139 [facility] Comment on above: Order Comment: FASTI NG:NO FASTING: NO Result Comment: Non-fasting reference interval Performed By: #### 8 09, , 85611, 927, 6399 #### [facility] [place] [address] Obstetrics Nurse Practitioner: Cuba Monk MD Potassium [Moles/Vol] 4.4 mmol/L Normal 3.5-5.3 [facility] Comment on above: Order Comment: FASTI NG:NO FASTING: NO Performed By: #### 8 09, 26173, 67612, 92, 6399 #### [facility] [place] [address] Obstetrics Nurse Practitioner: Cuba Monk MD Protein [Mass/Vol] 6.7 g/dL Normal 6.1-8.1 [facility] Comment on above: Order Comment: FASTI NG:NO FASTING: NO Performed By: #### 8 09, 06954, 19957, 927, 6399 #### [facility] [place] [address] Obstetrics Nurse Practitioner: Cuba Monk MD Sodium [Moles/Vol] 140 mmol/L Normal 135-146 [facility] Comment on above: Order Comment: FASTI NG:NO FASTING: NO Performed By: #### 8 09, 58787, 49483, 92, 6399 #### [facility] [place] [address] Obstetrics Nurse Practitioner: Cuba Monk MD Urea nitrogen [Mass/Vol] 22 mg/dL Normal 7-25 [facility] Comment on above: Order Comment: FASTI NG:NO FASTING: NO Performed By: #### 8 09, , 47163, 92, 6399 #### [facility] [place] [address] Obstetrics Nurse Practitioner: Cuba Monk MD SED RATE BY MODIFIED WESTERG RENon 12-21-2024 SED RATE BY MODIFIED WESTERGREN 11 mm/h Normal < OR = 30 [facility] Comment on above: Performed By: #### 8 09, , 34086, , 6399 #### [facility] [place] [address] Obstetrics Nurse Practitioner: Cuba Monk MD TSH W/REFLEX TO FT4on 2024 TSH W/REFLEX TO FT4 2.74 mIU/L Normal 0.40-4.50 [facility] Comment on above: Performed By: #### 8 09, , 94296, 92, 6399 #### [facility] [place] [address] Obstetrics Nurse Practitioner: Cuba Monk MD VITAMIN B12on 12-21-2024 Cobalamin (Vitamin B12) [Mass/Vol] 569 pg/mL Normal 200-1100 [facility] Comment on above: Performed By: #### 8 09, 32271, 47962, 92, 1399 #### [facility] [place] [address] Obstetrics Nurse Practitioner: Cuba Monk MD XR LUMBAR SPINE 2-3 VIEWSon 12-20-2024 XR LUMBAR SPINE 2-3 VIEWS Interpreted By: Saulo Rolon, STUDY: XR LUMBAR SPINE 2-3 VIEWS INDICATION: Signs/Symptoms:left leg pain. COMPARISON: None ACCESSION NUMBER(S): [id number] ORDERING CLINICIAN: AKANKSHA MILLAN FINDINGS: Fairly advanced L3-S1 lumbar degenerative change. Alignment normal without fracture. IMPRESSION: Advanced L3-S1 lumbar degenerative change. Signed by: Saulo Rolon 12/21/2024 12:06 PM Dictation workstation: [id number] [facility] BI MAMMO BILATERAL DIAGNOSTI C TOMOSYNTHESISon 10-30-2024 BI MAMMO BILATERAL DIAGNOSTIC TOMOSYNTHESIS Interpreted By: Stephon Rendon, STUDY: BI MAMMO BILATERAL DIAGNOSTIC TOMOSYNTHESIS; 10/30/2024 1:25 pm ACCESSION NUMBER(S): [id number] ORDERING CLINICIAN: AILEEN SHOEMAKER INDICATION: Diagnostic mammogram, [...] Stephon Rendon 10/31/2024 9:26 AM Dictation workstation: [id number] [facility] Absolute lymphocyte countOrd ered By: Lety Marcelo on 10-18-2024 Lymphocytes Auto (Unsp spec) [#/Vol] 1.14 10*3/uL 0.83-4.51 [facility] Absolute neutrophil countOrd ered By: Lety Marcelo on 10-18-2024 Neutrophils (Bld) [#/Vol] 2.9 10*3/uL 2.0-7.7 [facility] Albumin to globulin ratioOrd ered By: Lety Marcelo on 10-18-2024 Albumin/Globulin [Mass ratio] 1.1 {ratio} 0.9-2.4 [facility] Automated lymphocyte count a s percentage of total leukocytesOrdered By: Lety Marcelo on 10-18-2024 Lymphocytes/100 WBC Auto (Unsp spec) 23.7 % 19-41 [facility] Basophil percentageOrdered B y: Lety Marcelo on 10-18-2024 Basophils/100 WBC (Bld) 0.6 % 0-1 [facility] Bilirubin, totalOrdered By: Letymirtha Marcelo on 10-18-2024 Bilirubin [Mass/Vol] 0.40 mg/dL 0.20-1.00 [facility] Comment on above: For patients on eltr ombopag therapy, use of Dimension [place] TBIL is not recommended. Blood urea nitrogen (BUN)/cr eatinine ratioOrdered By: Lety Marcelo on 10-18-2024 Urea nitrogen/Creatinine [Mass ratio] 24.8 mg/mg High 10-20 [facility] CBC W/Diff, Automatedon 09-27 Absolute Lymph 1.14 X10 3/uL Normal 0.83-4.51 [facility] Comment on above: Performed By: #### L 500.4050, L100.0100 #### [facility] [address] [place], [address] Absolute Neut 2.9 X10 3/uL Normal 2.0-7.7 [facility] Comment on above: Performed By: #### L 500.4050, L100.0100 #### [facility] [address] [place], [address] Basophils/100 WBC (Bld) 0.6 % Normal 0-1 [facility] Comment on above: Performed By: #### L 500.4050, L100.0100 #### [facility] [address] [place], [address] Eosinophils/100 WBC (Bld) 4.4 % Normal 0-5 [facility] Comment on above: Performed By: #### L 500.4050, L100.0100 #### [facility] [address] [place], [address] Erythrocyte distribution width (RBC) [Ratio] 13.3 % Normal 11.6-14.6 [facility] Comment on above: Performed By: #### L 500.4050, L100.0100 #### [facility] [address] [place], [address] Hematocrit (Bld) [Volume fraction] 37.8 % Normal 37-47 [facility] Comment on above: Performed By: #### L 500.4050, L100.0100 #### [facility] [address] [place], [address] Hemoglobin (Bld) [Mass/Vol] 12.3 g/dL Normal 12.0-15.0 [facility] Comment on above: Performed By: #### L 500.4050, L100.0100 #### [facility] [address] [place], [address] IG% 0.400 Normal 0.0-0.9 [facility] Comment on above: Result Comment: IG% - Immature Granulocytes (promyelocytes, myelocytes and metamyelocytes) > 1% indicates that a LEFT SHIFT is Present. Performed By: #### L 500.4050, L100.0100 #### [facility] [address] [place], [address] Lymphocytes/100 WBC (Bld) 23.7 % Normal 19-41 [facility] Comment on above: Performed By: #### L 500.4050, L100.0100 #### [facility] [address] [place], [address] MCH (RBC) [Entitic mass] 31.1 pg Normal 27.0-32.0 [facility] Comment on above: Performed By: #### L 500.4050, L100.0100 #### [facility] [address] [place], [address] MCHC (RBC) [Mass/Vol] 32.5 g/dL Normal 32-36 [facility] Comment on above: Performed By: #### L 500.4050, L100.0100 #### [facility] [address] [place], [address] MCV (RBC) [Entitic vol] 95.7 fL Normal 81-99 [facility] Comment on above: Performed By: #### L 500.4050, L100.0100 #### [facility] [address] [place], [address] Monocytes/100 WBC (Bld) 10.2 % High 0-10 [facility] Comment on above: Performed By: #### L 500.4050, L100.0100 #### [facility] [address] [place], [address] Neutrophils/100 WBC (Bld) 60.7 % Normal 47-70 [facility] Comment on above: Performed By: #### L 500.4050, L100.0100 #### [facility] [address] [place], [address] Nucleated RBC (Bld) [#/Vol] 0 10*3/uL Normal 0-5 [facility] Comment on above: Performed By: #### L 500.4050, L100.0100 #### [facility] [address] [place], [address] Platelet mean volume (Bld) [Entitic vol] 10.1 fL Normal 6.2-12.0 [facility] Comment on above: Performed By: #### L 500.4050, L100.0100 #### [facility] [address] [place], [address] Platelets (Bld) [#/Vol] 187 10*3/uL Normal 150-450 [facility] Comment on above: Performed By: #### L 500.4050, L100.0100 #### [facility] [address] [place], [address] RBC (Bld) [#/Vol] 3.95 10*6/uL Low 4.2-5.4 [facility] Comment on above: Performed By: #### L 500.4050, L100.0100 #### [facility] [address] [place], [address] RDW SD 46.6 fl High 35.1-43.9 [facility] Comment on above: Performed By: #### L 500.4050, L100.0100 #### [facility] [address] [place], [address] WBC (Bld) [#/Vol] 4.8 10*3/uL Normal 4.4-11.0 [facility] Comment on above: Performed By: #### L 500.4050, L100.0100 #### [facility] [address] [place], [address] Carbon dioxide measurementOr dered By: Lety Marcelo on 10-18-2024 CO2 [Moles/Vol] 30.0 mmol/L 21.0-32.0 [facility] Chloride measurementOrdered By: Lety Marceol on 10-18-2024 Chloride [Moles/Vol] 102 mmol/L 98-107 [facility] Comprehensive Metabolic Prof ilon 10-18-2024 Albumin [Mass/Vol] 3.9 g/dL Normal 3.2-5.0 [facility] Comment on above: Performed By: #### L 500.4050, L100.0100 #### [facility] [address] [place], [address] Albumin/Globulin [Mass ratio] 1.1 {ratio} Normal 0.9-2.4 [facility] Comment on above: Performed By: #### L 500.4050, L100.0100 #### [facility] [address] [place], [address] ALK P 45 U/L Normal 45-117 [facility] Comment on above: Performed By: #### L 500.4050, L100.0100 #### [facility] [address] [place], [address] ALT [Catalytic activity/Vol] 42 U/L Normal 13-56 [facility] Comment on above: Performed By: #### L 500.4050, L100.0100 #### [facility] [address] [place], [address] AST [Catalytic activity/Vol] 39 U/L High 15-37 [facility] Comment on above: Performed By: #### L 500.4050, L100.0100 #### [facility] [address] [place], [address] Bilirubin [Mass/Vol] 0.40 mg/dL Normal 0.20-1.00 [facility] Comment on above: Result Comment: For patients on eltrombopag therapy, use of Dimension [place] TBIL is not recommended. Performed By: #### L 500.4050, L100.0100 #### [facility] [address] [place], [address] BUN/CRE 24.8 RATIO High 10-20 [facility] Comment on above: Performed By: #### L 500.4050, L100.0100 #### [facility] [address] [place], [address] CA,Total 9.7 mg/dL Normal 8.5-10.1 [facility] Comment on above: Performed By: #### L 500.4050, L100.0100 #### [facility] [address] [place], [address] Chloride [Moles/Vol] 102 mmol/L Normal 98-107 [facility] Comment on above: Performed By: #### L 500.4050, L100.0100 #### [facility] [address] [place], [address] CO2 [Moles/Vol] 30.0 mmol/L Normal 21.0-32.0 [facility] Comment on above: Performed By: #### L 500.4050, L100.0100 #### [facility] [address] [place], [address] Creatinine [Mass/Vol] 1.09 mg/dL High 0.55-1.02 [facility] Comment on above: Result Comment: The validity of the calculated GFR GFRAA in patients over 70 years has not been determined. Clinical correlation is essential. Performed By: #### L 500.4050, L100.0100 #### [facility] [address] [place], [address] EST GFR - AA 62 mL/min Normal >60 [facility] Comment on above: Result Comment: Afri can Gabonese GFR Calc Performed By: #### L 500.4050, L100.0100 #### [facility] [address] [place], [address] GAP 3 Low 5-15 [facility] Comment on above: Performed By: #### L 500.4050, L100.0100 #### [facility] [address] [place], [address] GFR/1.73 sq M.predicted among non-blacks MDRD (S/P/Bld) [Vol rate/Area] 51 mL/min/{1.73_m2} Low >60 [facility] Comment on above: Result Comment: Non- GFR Calc Performed By: #### L 500.4050, L100.0100 #### [facility] [address] [place], [address] Globulin (S) [Mass/Vol] 3.5 g/dL Normal 2.2-4.2 [facility] Comment on above: Performed By: #### L 500.4050, L100.0100 #### [facility] [address] [place], [address] Glucose [Mass/Vol] 94 mg/dL Normal 74-106 [facility] Comment on above: Performed By: #### L 500.4050, L100.0100 #### [facility] [address] [place], [address] Potassium [Moles/Vol] 4.2 mmol/L Normal 3.5-5.1 [facility] Comment on above: Performed By: #### L 500.4050, L100.0100 #### [facility] [address] [place], [address] Sodium [Moles/Vol] 135 mmol/L Low 136-145 [facility] Comment on above: Performed By: #### L 500.4050, L100.0100 #### [facility] [address] [place], [address] T PROT 7.4 g/dL Normal 6.4-8.2 [facility] Comment on above: Performed By: #### L 500.4050, L100.0100 #### [facility] [address] [place], [address] Urea nitrogen [Mass/Vol] 27 mg/dL High 7-18 [facility] Comment on above: Performed By: #### L 500.4050, L100.0100 #### [facility] [address] [place], [address] Eosinophil percentageOrdered By: Lety Marcelo on 10-18-2024 Eosinophils/100 WBC (Bld) 4.4 % 0-5 [facility] Erythrocyte distribution wid th ratioOrdered By: Lety Marcelo on 10-18-2024 Erythrocyte distribution width (RBC) [Ratio] 13.3 % 11.6-14.6 [facility] Erythrocyte distribution wid th standard deviationOrdered By: Lety Marcelo on 10-18-2024 Erythrocyte distribution width (RBC) [Ratio] 46.6 fl High 35.1-43.9 [facility] Glomerular filtration rate ( GFR) estimationOrdered By: Lety Marcelo on 10-18-2024 GFR/1.73 sq M.predicted among non-blacks MDRD (S/P/Bld) [Vol rate/Area] 51 mL/min/{1.73_m2} Low >60 [facility] Comment on above: Non- GFR Calc Glucose measurementOrdered B y: Lety Marcelo on 10-18-2024 Glucose [Mass/Vol] 94 mg/dL 74-106 [facility] Hematocrit Auto (Bld) [Volum e fraction]Ordered By: Lety Marcelo on 10-18-2024 Hematocrit (Bld) [Volume fraction] 37.8 % 37-47 [facility] Hemoglobin measurementOrdere d By: Lety Marcelo on 10-18-2024 Hemoglobin (Bld) [Mass/Vol] 12.3 g/dL 12.0-15.0 [facility] Immature granulocytes/100 WB C Auto (Bld)Ordered By: Lety Marcelo 10-18-2024 Immature granulocytes/100 WBC (Bld) 0.400 % 0.0-0.9 [facility] Comment on above: IG% - Immature Granu locytes (promyelocytes, myelocytes and metamyelocytes) > 1% indicates that a LEFT SHIFT is Present. Laboratory - Chemistry and C hemistry - challengeOrdered By: Lety Marcelo on 10-18-2024 AST [Catalytic activity/Vol] 39 U/L High 15-37 [facility] MCV (mean corpuscular volume ) determinationOrdered By: Lety Marcelo 10-18-2024 MCV (RBC) [Entitic vol] 95.7 fL 81-99 [facility] Mean corpuscular hemoglobin (MCH) determinationOrdered By: Lety Marcelo on 10-18-2024 MCH (RBC) [Entitic mass] 31.1 pg 27.0-32.0 [facility] Mean corpuscular hemoglobin concentration (MCHC) determinationOrdered By: Lety Marcelo on 10-18-2024 MCHC (RBC) [Mass/Vol] 32.5 g/dL 32-36 [facility] Mean platelet volume determi nationOrdered By: Lety Marcelo on 10-18-2024 Platelet mean volume (Bld) [Entitic vol] 10.1 fL 6.2-12.0 [facility] Monocyte percentageOrdered B y: Lety Marcelo on 10-18-2024 Monocytes/100 WBC (Bld) 10.2 % High 0-10 [facility] Neutrophil percentageOrdered By: Lety Marcelo on 10-18-2024 Neutrophils/100 WBC (Bld) 60.7 % 47-70 [facility] Nucleated red blood cell per centageOrdered By: Lety Marcelo on 10-18-2024 Nucleated RBC/100 WBC (Bld) [Ratio] 0 % 0-5 [facility] Platelet countOrdered By: Nick Marcelo on 10-18-2024 Platelets (Bld) [#/Vol] 187 10*3/uL 150-450 [facility] Potassium measurementOrdered By: Lety Marcelo on 10-18-2024 Potassium [Moles/Vol] 4.2 mmol/L 3.5-5.1 [facility] RBC Auto (Bld) [#/Vol]Ordere d By: Lety Marcelo on 10-18-2024 RBC (Bld) [#/Vol] 3.95 10*6/uL Low 4.2-5.4 [facility] Serum anion gap measurementO rdered By: Lety Marcelo on 10-18-2024 Anion gap [Moles/Vol] 3 mmol/L Low 5-15 [facility] Serum globulin measurementOr dered By: Lety Marcelo on 10-18-2024 Globulin (S) [Mass/Vol] 3.5 g/dL 2.2-4.2 [facility] Serum or plasma alanine steinberg otransferase (ALT) measurementOrdered By: Lety Marcelo on 10-18-2024 ALT [Catalytic activity/Vol] 42 U/L 13-56 [facility] Serum or plasma albumin koki urement (mass/volume)Ordered By: Lety Marcelo on 10-18-2024 Albumin [Mass/Vol] 3.9 g/dL 3.2-5.0 [facility] Serum or plasma alkaline lisa sphatase measurementOrdered By: Lety Marcelo on 10-18-2024 ALP [Catalytic activity/Vol] 45 U/L 45-117 [facility] Serum or plasma calcium koki urement (mass/volume)Ordered By: Lety Marcelo on 10-18-2024 Calcium [Mass/Vol] 9.7 mg/dL 8.5-10.1 [facility] Serum or plasma creatinine m easurement (mass/volume)Ordered By: Lety Marcelo on 10-18-2024 Creatinine [Mass/Vol] 1.09 mg/dL High 0.55-1.02 [facility] Comment on above: The validity of the calculated GFR & GFRAA in patients over 70 years has not been determined. Clinical correlation is essential. Serum or plasma urea nitroge n measurement (mass/volume)Ordered By: Lety Marcelo on 10-18-2024 Urea nitrogen [Mass/Vol] 27 mg/dL High 7-18 [facility] Sodium levelOrdered By: Srinivasa Marcelo on 10-18-2024 Sodium [Moles/Vol] 135 mmol/L Low 136-145 [facility] Total proteinOrdered By: Yasmine Marcelo on 10-18-2024 Protein [Mass/Vol] 7.4 g/dL 6.4-8.2 [facility] White blood cell (WBC) count Ordered By: Lety Marcelo on 10-18-2024 WBC (Bld) [#/Vol] 4.8 10*3/uL 4.4-11.0 [facility] US Heart TransthoracicOrdere d By: Socrates Mills on 08-30-2024 Aortic Valve Area by Continuity of Peak Velocity 1.93 cm2 [facility] Work Phone: Aortic Valve Area by Continuity of VTI 2.19 cm2 [facility] Work Phone: AV mn grad 3 mmHg [facility] Work Phone: AV pk grad 6 mmHg [facility] Work Phone: AV pk hardeep 1.22 m/s [facility] Work Phone: LA vol index A/L 9.1 ml/m2 [facility] Work Phone: LV A4C EF 68.5 [facility] Work Phone: LV Biplane EF 68 % [facility] Work Phone: LV EF 63 % [facility] Work Phone: LVIDd 4.6 cm [facility] Work Phone: LVOT diam 1.8 cm [facility] Work Phone: MV E/A ratio 1.68 [facility] Work Phone: RV free wall pk S' 13.6 cm/s [facility] Work Phone: Tricuspid annular plane systolic excursion 2.5 cm [facility] Work Phone: [facility] Work Phone: [place] [address] [phone], TRANSTHORACIC ECHOCARDIOGRAM REPORT Patient Name: KIM GODDARD AJ De Luna Physician: [id number] Socrates Mills MD Study Date: 08/29/2024 Ordering Provider: [id number] MILAN REID MRN/PID: [id number] Fellow: Nurse: Priyanka Nichole RN 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: 8 1945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 Gender Assigned at F Additional Staff: : Height: 167.64 cm Admit Date: Weight: 62.60 kg Admission Status: Outpatient BSA / BMI: 1.71 m2 / 22.27 Department Location: [facility] Echo Lab kg/m2 Blood Pressure: 178 /92 mmHg Study Type: TRANSTHORACIC ECHO (TTE) COMPLETE Diagnosis/ICD: Lyme disease, unspecified-A69.20 CPT Codes: Echo Complete w Full Doppler-37361 Study Detail: The following Echo studies were [...] LA Area A2C: 8.5 cm2 [place] A4C: 3.6 cm [place] A2C: 3.9 cm LA Volume Index: 7.9 [...] TAPSE: 25.4 mm RV s' 0.14 m/s [id number] Socrates Mills MD Electronically signed on 08/30/2024 at 12:55:43 PM Final [facility] Work Phone: TRANSTHORACIC ECHO (TTE) COM PLETEon 08-29-2024 TRANSTHORACIC ECHO (TTE) [place] [address] [phone], TRANSTHORACIC ECHOCARDIOGRAM REPORT Patient Name: KIM ROCHA Annamarie Physician: [id number] Mills MD Study Date: 08/29/2024 Ordering Provider: [id number] MILAN REID MRN/PID: [id number] Fellow: Nurse: Priyanka Nichole RN 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: 8 1945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 Gender Assigned at F Additional Staff: : Height: 167.64 cm Admit Date: Weight: 62.60 kg Admission Status: Outpatient BSA / BMI: 1.71 m2 / 22.27 Department Location: [facility] Echo Lab kg/m2 Blood Pressure: 178 /92 mmHg Study Type: TRANSTHORACIC ECHO (TTE) COMPLETE Diagnosis/ICD: Lyme disease, unspecified-A69.20 CPT Codes: Echo Complete w Full Doppler-73692 Study Detail: The following Echo studies were [...] LA Area A2C: 8.5 cm2 [place] A4C: 3.6 cm [place] A2C: 3.9 cm LA Volume Index: 7.9 [...] TAPSE: 25.4 mm RV s' 0.14 m/s [id number] Socrates Mills MD Electronically signed on 08/30/2024 at 12:55:43 PM Final Normal [facility] C reactive proteinon 024 CRP [Mass/Vol] mg/L Normal <1.00 [facility] Comment on above: Performed By: #### 5 [id number] #### KEY ROQUE ([id number]) [facility] ([facility]) [address] [place] [address] CBC W Auto Differential pane l (Bld)Ordered By: Tyron Morales on 05-01-2024 Basophils (Bld) [#/Vol] 0.03 10*3/uL [facility] Basophils/100 WBC (Bld) 0.7 % 0.0 - 2.0 % [facility] Eosinophils (Bld) [#/Vol] 0.12 10*3/uL [facility] Comment on above: Corrected result: Pr eviously reported as 0.11 x10*3/uL (reference range: 0.00-0.40 x10*3/uL) on 05/01/2024 at 1530 EDT. Eosinophils/100 WBC (Bld) 2.5 % 0.0 - 6.0 % [facility] Erythrocyte distribution width (RBC) [Ratio] 14.2 % 11.5 - 14.5 % [facility] Hematocrit (Bld) [Volume fraction] 35.6 % Low 36.0 - 46.0 % [facility] Comment on above: Corrected result: Pr eviously reported as 32.4 % (reference range: 36.0-46.0 %) on 05/01/2024 at 1530 EDT. Hemoglobin (Bld) [Mass/Vol] 11.7 g/dL Low 12.0 - 16.0 g/dL [facility] Comment on above: Corrected result: Pr eviously reported as 10.7 g/dL (reference range: 12.0-16.0 g/dL) on 05/01/2024 at 1530 EDT. Immature granulocytes (Bld) [#/Vol] 0 10*3/uL [facility] Immature granulocytes/100 WBC (Bld) 0 % 0.0 - 0.9 % [facility] Comment on above: Immature Granulocyte Count (IG) includes promyelocytes, myelocytes and metamyelocytes but does not include bands. Percent differential counts (%) should be interpreted in the context of the absolute cell counts (cells/UL). Interpretation and review of laboratory results Abnormal [facility] Lymphocytes (Bld) [#/Vol] 1.47 10*3/uL [facility] Comment on above: Corrected result: Pr eviously reported as 1.34 x10*3/uL (reference range: 0.80-3.00 x10*3/uL) on 05/01/2024 at 1530 EDT. Lymphocytes/100 WBC (Bld) 30.7 % 13.0 - 44.0 % [facility] MCH (RBC) [Entitic mass] 31.5 pg 26.0 - 34.0 pg [facility] MCHC (RBC) [Mass/Vol] 33 g/dL 32.0 - 36.0 g/dL [facility] MCV (RBC) [Entitic vol] 95 fL 80 - 100 fL [facility] Monocytes (Bld) [#/Vol] 0.47 10*3/uL [facility] Comment on above: Corrected result: Pr eviously reported as 0.43 x10*3/uL (reference range: 0.05-0.80 x10*3/uL) on 05/01/2024 at 1530 EDT. Monocytes/100 WBC (Bld) 9.8 % 2.0 - 10.0 % [facility] Neutrophils (Bld) [#/Vol] 2.7 10*3/uL [facility] Comment on above: Percent differential counts (%) should be interpreted in the context of the absolute cell counts (cells/uL). Corrected result: Previously reported as 2.46 x10*3/uL (reference range: 1.60-5.50 x10*3/uL) on 05/01/2024 at 1530 EDT. Neutrophils/100 WBC (Bld) 56.3 % 40.0 - 80.0 % [facility] Nucleated RBC/100 WBC (Bld) [Ratio] 0 % [facility] Platelets (Bld) [#/Vol] 172 10*3/uL [facility] Comment on above: Corrected result: Pr eviously reported as 156 x10*3/uL (reference range: 150-450 x10*3/uL) on 05/01/2024 at 1530 EDT. RBC (Bld) [#/Vol] 3.74 10*6/uL Low [facility] Comment on above: Corrected result: Pr eviously reported as 3.40 x10*6/uL (reference range: 4.00-5.20 x10*6/uL) on 05/01/2024 at 1530 EDT. WBC (Bld) [#/Vol] 4.8 10*3/uL [facility] Comment on above: Corrected result: Pr eviously reported as 4.4 x10*3/uL (reference range: 4.4-11.3 x10*3/uL) on 05/01/2024 at 1530 EDT. [facility] Comprehensive metabolic 2000 panelon 05-01-2024 Albumin BCP dye [Mass/Vol] 4.1 g/dL Normal 3.4-5.0 [facility] Comment on above: Performed By: #### 5 0957-0 #### KEY ROQUE ([id number]) [facility] ([facility]) [address] [place] [address] ALP [Catalytic activity/Vol] 43 U/L Normal 33-136 [facility] Comment on above: Performed By: #### 5 0957-0 #### SHHAID NEVAREZ ([id number]) [facility] ([facility]) [address] [place] [address] ALT With P-5'-P [Catalytic activity/Vol] 32 U/L Normal 7-45 [facility] Comment on above: Result Comment: Mimi ents treated with Sulfasalazine may generate falsely decreased results for ALT. Performed By: #### 5 0957-0 #### SHAHID NEVAREZ ([id number]) [facility] ([facility]) [address] [place] [address] Anion gap [Moles/Vol] 8 mmol/L Low 10-20 [facility] Comment on above: Performed By: #### 5 57-0 #### SHAHID NEVAREZ ([id number]) [facility] ([facility]) [address] [place] [address] 10877 AST With P-5'-P [Catalytic activity/Vol] 39 U/L Normal 9-39 [facility] Comment on above: Performed By: #### 5 57-0 #### SHAHID NEVAREZ ([id number]) [facility] ([facility]) [address] [place] [address] 79681 Bilirubin [Mass/Vol] 0.5 mg/dL Normal 0.0-1.2 [facility] Comment on above: Performed By: #### 5 0957-0 #### SHAHID NEVAREZ ([id number]) [facility] ([facility]) [address] [place] [address] 16402 Calcium [Mass/Vol] 9.7 mg/dL Normal 8.6-10.3 [facility] Comment on above: Performed By: #### 5 0957-0 #### SHAHID NEVAREZ ([id number]) [facility] ([facility]) [address] [place] [address] 49522 Chloride [Moles/Vol] 102 mmol/L Normal 98-107 [facility] Comment on above: Performed By: #### 5 0957-0 #### SHAHID NEVAREZ ([id number]) [facility] ([facility]) [address] [place] [address] 41931 CO2 [Moles/Vol] 32 mmol/L Normal 21-32 [facility] Comment on above: Performed By: #### 5 0957-0 #### SHAHID NEVAREZ ([id number]) [facility] ([facility]) [address] [place] [address] 42050 Creatinine [Mass/Vol] 0.89 mg/dL Normal 0.50-1.05 [facility] Comment on above: Performed By: #### 5 0957-0 #### SHAHID NEVAREZ ([id number]) [facility] ([facility]) [address] [place] [address] 42645 Glomerular filtration rate/1.73 sq M.predicted 66 mL/min/1.73m*2 Normal >60 [facility] Comment on above: Result Comment: Calc ulations of estimated GFR are performed using the 2020 CKD-EPI Study Refit equation without the race variable for the IDMS-Traceable creatinine methods. https://jasn.asnjournals.org/content/early/ASN.86610 48286 Performed By: #### 5 0957-0 #### SHAHID NEVAREZ ([id number]) [facility] ([facility]) [address] [place] [address] 64459 Glucose [Mass/Vol] 87 mg/dL Normal 74-99 [facility] Comment on above: Performed By: #### 5 0957-0 #### SHAHID NEVAREZ ([id number]) [facility] ([facility]) [address] [place] [address] 41707 Potassium [Moles/Vol] 4.3 mmol/L Normal 3.5-5.3 [facility] Comment on above: Performed By: #### 5 0957-0 #### SHAHID NEVAREZ ([id number]) [facility] ([facility]) [address] [place] [address] 93889 Protein [Mass/Vol] 6.7 g/dL Normal 6.4-8.2 [facility] Comment on above: Performed By: #### 5 0957-0 #### SHAHID NEVAREZ ([id number]) [facility] ([facility]) [address] [place] [address] Sodium [Moles/Vol] 138 mmol/L Normal 136-145 [facility] Comment on above: Performed By: #### 5 0957-0 #### SHAHID NEVAREZ ([id number]) [facility] ([facility]) [facility] [place] [address] Urea nitrogen [Mass/Vol] 28 mg/dL High 6-23 [facility] Comment on above: Performed By: #### 5 0957-0 #### SHAHID NEVAREZ ([id number]) [facility] ([facility]) [address] [place] [address] 78227 APTTon 03-28-2024 aPTT Coag (PPP) [Time] 29 s Un [facility] Basic metabolic 2000 panelon 03-28-2024 Anion gap [Moles/Vol] 9 mmol/L Low 10 - 2 0 mmol/L [facility] Calcium [Mass/Vol] 8.9 mg/dL 8.6 - 10. 3 mg/dL [facility] Chloride [Moles/Vol] 98 mmol/L 98 - 10 7 mmol/L [facility] CO2 [Moles/Vol] 28 mmol/L 21 - 32 mmol/L [facility] Creatinine [Mass/Vol] 0.79 mg/dL 0.50 - 1.05 mg/dL [facility] GFR/1.73 sq M.predicted among non-blacks MDRD (S/P/Bld) [Vol rate/Area] 77 mL/min/{1.73_m2} - PINF [facility] Comment on above: Calculations of sean mated GFR are performed using the 2020 CKD-EPI Study Refit equation without the race variable for the IDMS-Traceable creatinine methods. https://jasn.asnjournals.org/content/early//ASN.03933 52741 Glucose [Mass/Vol] 95 mg/dL 74 - 99 mg/dL [facility] Interpretation and review of laboratory results Abnormal [facility] Potassium [Moles/Vol] 4.3 mmol/L 3.5 - 5.3 mmol/L [facility] Sodium [Moles/Vol] 131 mmol/L Low 136 - 145 mmol/L [facility] Urea nitrogen [Mass/Vol] 15 mg/dL 6 - 23 mg/dL [facility] Anion gap [Moles/Vol] 9 mmol/L Low 10-20 [facility] Comment on above: Performed By: #### 2 4321-2 #### SHAHID NEVAREZ ([id number]) [facility] ([facility]) [facility] [place] [address] Calcium [Mass/Vol] 8.9 mg/dL Normal 8.6-10.3 [facility] Comment on above: Performed By: #### 2 4321-2 #### SHAHID NEVAREZ ([id number]) [facility] ([facility]) [address] [place] [address] 51116 Chloride [Moles/Vol] 98 mmol/L Normal 98-107 [facility] Comment on above: Performed By: #### 2 4321-2 #### SHAHID NEVAREZ ([id number]) [facility] ([facility]) [address] [place] [address] 93702 CO2 [Moles/Vol] 28 mmol/L Normal 21-32 [facility] Comment on above: Performed By: #### 2 4321-2 #### SHAHID NEVAREZ ([id number]) [facility] ([facility]) [address] [place] [address] 90545 Creatinine [Mass/Vol] 0.79 mg/dL Normal 0.50-1.05 [facility] Comment on above: Performed By: #### 2 4321-2 #### SHAHID NEVAREZ ([id number]) [facility] ([facility]) [address] [place] [address] 17870 Glomerular filtration rate/1.73 sq M.predicted 77 mL/min/1.73m*2 Normal >60 [facility] Comment on above: Result Comment: Calc ulations of estimated GFR are performed using the 2020 CKD-EPI Study Refit equation without the race variable for the IDMS-Traceable creatinine methods. https://jasn.asnjournals.org/content//ASN.05160 30259 Performed By: #### 2 4321-2 #### SHAHID NEVAREZ ([id number]) [facility] ([facility]) [address] [place] [address] 97704 Glucose [Mass/Vol] 95 mg/dL Normal 74-99 [facility] Comment on above: Performed By: #### 2 4321-2 #### SHAHID NEVAREZ ([id number]) [facility] ([facility]) [address] [place] [address] 83268 Potassium [Moles/Vol] 4.3 mmol/L Normal 3.5-5.3 [facility] Comment on above: Performed By: #### 2 4321-2 #### SHAHID NEVAREZ ([id number]) [facility] ([facility]) [address] [place] [address] 85266 Sodium [Moles/Vol] 131 mmol/L Low 136-145 [facility] Comment on above: Performed By: #### 2 4321-2 #### SHAHID NEVAREZ ([id number]) [facility] ([facility]) [address] [place] [address] 76875 Urea nitrogen [Mass/Vol] 15 mg/dL Normal 6-23 [facility] Comment on above: Performed By: #### 2 4321-2 #### SHAHID NEVAREZ ([id number]) [facility] ([facility]) [address] [place] [address] 28458 CBC W Auto Differential pane l (Bld)on 03-28-2024 Basophils (Bld) [#/Vol] 0.02 10*3/uL [facility] Basophils/100 WBC (Bld) 0.4 % 0.0 - 2.0 % [facility] Eosinophils (Bld) [#/Vol] 0.09 10*3/uL [facility] Eosinophils/100 WBC (Bld) 1.7 % 0.0 - 6.0 % [facility] Erythrocyte distribution width (RBC) [Ratio] 14.5 % 11.5 - 14.5 % [facility] Hematocrit (Bld) [Volume fraction] 34.8 % Low 36.0 - 46.0 % [facility] Hemoglobin (Bld) [Mass/Vol] 11.5 g/dL Low 12.0 - 16.0 g/dL [facility] Immature granulocytes (Bld) [#/Vol] 0.01 10*3/uL [facility] Immature granulocytes/100 WBC (Bld) 0.2 % 0.0 - 0.9 % [facility] Comment on above: Immature Granulocyte Count (IG) includes promyelocytes, myelocytes and metamyelocytes but does not include bands. Percent differential counts (%) should be interpreted in the context of the absolute cell counts (cells/UL). Interpretation and review of laboratory results Abnormal [facility] Lymphocytes (Bld) [#/Vol] 0.48 10*3/uL Low [facility] Lymphocytes/100 WBC (Bld) 9.2 % 13.0 - 44.0 % [facility] MCH (RBC) [Entitic mass] 30.7 pg 26.0 - 34.0 pg [facility] MCHC (RBC) [Mass/Vol] 33.0 g/dL 32.0 - 36.0 g/dL [facility] MCV (RBC) [Entitic vol] 93 fL 80 - 100 fL [facility] Monocytes (Bld) [#/Vol] 0.23 10*3/uL [facility] Monocytes/100 WBC (Bld) 4.4 % 2.0 - 10.0 % [facility] Neutrophils (Bld) [#/Vol] 4.39 10*3/uL [facility] Comment on above: Percent differential counts (%) should be interpreted in the context of the absolute cell counts (cells/uL). Neutrophils/100 WBC (Bld) 84.1 % 40.0 - 80.0 % [facility] Nucleated RBC/100 WBC (Bld) [Ratio] 0.0 % [facility] Platelets (Bld) [#/Vol] 226 10*3/uL [facility] Comment on above: platelet count from blue top citrate tube RBC (Bld) [#/Vol] 3.74 10*6/uL Low [facility] WBC (Bld) [#/Vol] 5.2 10*3/uL [facility] Basophils (Bld) [#/Vol] 0.02 x10*3/uL Normal 0.00-0.10 [facility] Comment on above: Performed By: #### 5 7021-8 #### SHAHID NEVAREZ ([id number]) [facility] ([facility]) [address] [place] [address] 47715 Basophils/100 WBC (Bld) 0.4 % Normal 0.0-2.0 [facility] Comment on above: Performed By: #### 5 7021-8 #### SHAHID NEVAREZ ([id number]) [facility] ([facility]) [address] [place] [address] 52257 Eosinophils (Bld) [#/Vol] 0.09 x10*3/uL Normal 0.00-0.40 [facility] Comment on above: Performed By: #### 5 7021-8 #### SHAHID NEVAREZ ([id number]) [facility] ([facility]) [address] [place] [address] 32047 Eosinophils/100 WBC (Bld) 1.7 % Normal 0.0-6.0 [facility] Comment on above: Performed By: #### 5 7021-8 #### SHAHID NEVAREZ ([id number]) [facility] ([facility]) [address] [place] [address] 38628 Erythrocyte distribution width (RBC) [Ratio] 14.5 % Normal 11.5-14.5 [facility] Comment on above: Performed By: #### 5 7021-8 #### SHAHID NEVAREZ ([id number]) [facility] ([facility]) [address] [place] [address] 38552 Hematocrit (Bld) [Volume fraction] 34.8 % Low 36.0-46.0 [facility] Comment on above: Performed By: #### 5 7021-8 #### SHAHID NEVAREZ ([id number]) [facility] ([facility]) [address] [place] [address] 06935 Hemoglobin (Bld) [Mass/Vol] 11.5 g/dL Low 12.0-16.0 [facility] Comment on above: Performed By: #### 5 7021-8 #### SHAHID NEVAREZ ([id number]) [facility] ([facility]) [address] [place] [address] 74878 Immature granulocytes (Bld) [#/Vol] 0.01 x10*3/uL Normal 0.00-0.50 [facility] Comment on above: Performed By: #### 5 7021-8 #### SHAHID NEVAREZ ([id number]) [facility] ([facility]) [address] [place] [address] 53023 Immature granulocytes/100 WBC (Bld) 0.2 % Normal 0.0-0.9 [facility] Comment on above: Result Comment: Leesa ture Granulocyte Count (IG) includes promyelocytes, myelocytes and metamyelocytes but does not include bands. Percent differential counts (%) should be interpreted in the context of the absolute cell counts (cells/UL). Performed By: #### 5 7021-8 #### SHAHID NEVAREZ ([id number]) [facility] ([facility]) [address] [place] [address] 75422 Lymphocytes (Bld) [#/Vol] 0.48 x10*3/uL Low 0.80-3.00 [facility] Comment on above: Performed By: #### 5 7021-8 #### SHAHID NEVAREZ ([id number]) [facility] ([facility]) [address] [place] [address] 05166 Lymphocytes/100 WBC (Bld) 9.2 % Normal 13.0-44.0 [facility] Comment on above: Performed By: #### 5 7021-8 #### SHAHID NEVAREZ ([id number]) [facility] ([facility]) [address] [place] [address] 63403 MCH (RBC) [Entitic mass] 30.7 pg Normal 26.0-34.0 [facility] Comment on above: Performed By: #### 5 7021-8 #### SHAHID NEVAREZ ([id number]) [facility] ([facility]) [address] [place] [address] 30718 MCHC (RBC) [Mass/Vol] 33.0 g/dL Normal 32.0-36.0 [facility] Comment on above: Performed By: #### 5 7021-8 #### SHAHID NEVAREZ ([id number]) [facility] ([facility]) [address] [place] [address] 36728 MCV (RBC) [Entitic vol] 93 fL Normal 80-100 [facility] Comment on above: Performed By: #### 5 7021-8 #### SHAHID NEVAREZ ([id number]) [facility] ([facility]) [address] [place] [address] 44178 Monocytes (Bld) [#/Vol] 0.23 x10*3/uL Normal 0.05-0.80 [facility] Comment on above: Performed By: #### 5 7021-8 #### SHAHID NEVAREZ ([id number]) [facility] ([facility]) [address] [place] [address] 58348 Monocytes/100 WBC (Bld) 4.4 % Normal 2.0-10.0 [facility] Comment on above: Performed By: #### 5 7021-8 #### SHAHID NEVAREZ ([id number]) [facility] ([facility]) [address] [place] [address] 69257 Neutrophils (Bld) [#/Vol] 4.39 x10*3/uL Normal 1.60-5.50 [facility] Comment on above: Result Comment: Perc ent differential counts (%) should be interpreted in the context of the absolute cell counts (cells/uL). Performed By: #### 5 7021-8 #### SHAHID NEVAREZ ([id number]) [facility] ([facility]) [address] [place] [address] 81741 Neutrophils/100 WBC (Bld) 84.1 % Normal 40.0-80.0 [facility] Comment on above: Performed By: #### 5 7021-8 #### SHAHID NEVAREZ ([id number]) [facility] ([facility]) [facility] [place] [address] Nucleated RBC/100 WBC (Bld) [Ratio] 0.0 /100 WBCs Normal 0.0-0.0 [facility] Comment on above: Performed By: #### 5 7021-8 #### SHAHID NEVAREZ ([id number]) [facility] ([facility]) [address] [place] [address] 21924 Platelets (Bld) [#/Vol] 226 x10*3/uL Normal 150-450 [facility] Comment on above: Result Comment: plat elet count from blue top citrate tube Performed By: #### 5 7021-8 #### SHAHID NEVAREZ ([id number]) [facility] ([facility]) [address] [place] [address] 07707 RBC (Bld) [#/Vol] 3.74 x10*6/uL Low 4.00-5.20 [facility] Comment on above: Performed By: #### 5 7021-8 #### SHAHID NEVAREZ ([id number]) [facility] ([facility]) [address] [place] [address] 62986 WBC (Bld) [#/Vol] 5.2 x10*3/uL Normal 4.4-11.3 [facility] Comment on above: Performed By: #### 5 7021-8 #### SHAHID NEVAREZ ([id number]) [facility] ([facility]) [address] [place] [address] 98005 Coagulation surface inducedo n 03-28-2024 aPTT Coag (PPP) [Time] 29 s Normal 27-38 [facility] Comment on above: Order Comment: The A PTT is no longer used for monitoring Unfractionated Heparin Therapy. For monitoring Heparin Therapy, use the Heparin Assay. Performed By: #### 1 4979-9 #### SHAHID NEVAREZ ([id number]) [facility] ([facility]) [address] [place] [address] 95676 Coagulation tissue factor in ducedon 07-03-2024 PT Coag (PPP) [Time] 11.6 s Normal 9.8-12.8 [facility] Comment on above: Performed By: #### 5 902-2 #### KEY ROQUE ([id number]) [facility] ([facility]) [address] [id number] ECG 12-LEADon 03-28-2024 ECG 12-LEAD Ventricular Rate 78 Atrial Rate 78 P-R Interval 154 QRS Duration 126 Q-T Interval 412 QTC Calculation(Bazett) 469 P [place] 64 R [place] 73 T [place] 11 QRS Count 13 Q Onset 225 [...] and clinical correlation Confirmed by Dawson Castorena ([id number]) on 04/05/2024 8:44:00 PM Normal [facility] Hepatic function 2000 panelo n 03-28-2024 Albumin BCP dye [Mass/Vol] 4.0 g/dL 3.4 - 5.0 g/dL [facility] ALP [Catalytic activity/Vol] 77 U/L 33 - 136 U/L [facility] ALT With P-5'-P [Catalytic activity/Vol] 31 U/L 7 - 45 U/L [facility] Comment on above: Patients treated wit h Sulfasalazine may generate falsely decreased results for ALT. AST With P-5'-P [Catalytic activity/Vol] 33 U/L 9 - 39 U/L [facility] Bilirubin [Mass/Vol] 0.6 mg/dL 0.0 - 1 .2 mg/dL [facility] Bilirubin.direct [Mass/Vol] 0.1 mg/dL 0.0 - 0.3 mg/dL [facility] Protein [Mass/Vol] 7.0 g/dL 6.4 - 8.2 g/dL [facility] Albumin BCP dye [Mass/Vol] 4.0 g/dL Normal 3.4-5.0 [facility] Comment on above: Performed By: #### 5 7021-8 #### SHAHID NEVAREZ ([id number]) [facility] ([facility]) [address] [place] [address] 17055 ALP [Catalytic activity/Vol] 77 U/L Normal 33-136 [facility] Comment on above: Performed By: #### 5 7021-8 #### SHAHID NEVAREZ ([id number]) [facility] ([facility]) [address] [place] [address] 05636 ALT With P-5'-P [Catalytic activity/Vol] 31 U/L Normal 7-45 [facility] Comment on above: Result Comment: Mimi ents treated with Sulfasalazine may generate falsely decreased results for ALT. Performed By: #### 5 7021-8 #### SHAHID NEVAREZ ([id number]) [facility] ([facility]) [address] [place] [address] 64642 AST With P-5'-P [Catalytic activity/Vol] 33 U/L Normal 9-39 [facility] Comment on above: Performed By: #### 5 7021-8 #### SHAHID NEVAREZ ([id number]) [facility] ([facility]) [address] [place] [address] 84734 Bilirubin [Mass/Vol] 0.6 mg/dL Normal 0.0-1.2 [facility] Comment on above: Performed By: #### 7021-8 #### SHAHID NEVAREZ ([id number]) [facility] ([facility]) [address] [place] [address] 60133 Bilirubin.direct [Mass/Vol] 0.1 mg/dL Normal 0.0-0.3 [facility] Comment on above: Performed By: #### 5 7021-8 #### SHAHID NEVAREZ ([id number]) [facility] ([facility]) [address] [place] [address] 38019 Protein [Mass/Vol] 7.0 g/dL Normal 6.4-8.2 [facility] Comment on above: Performed By: #### 7021-8 #### SHAHID NEVAREZ ([id number]) [facility] ([facility]) [facility] [place] [address] Lipaseon 03-28-2024 Lipase [Catalytic activity/Vol] 48 U/L 9 - 82 U/L [facility] Lipase [Catalytic activity/V ol]on 03-28-2024 Venipuncture immediately after or during the administration of Metamizole may lead to falsely low results. Testing should be performed immediately prior to Metamizole dosing. [facility] Magnesiumon 03-28-2024 Magnesium [Mass/Vol] 2.02 mg/dL 1.60 - 2.40 mg/dL [facility] Magnesium [Mass/Vol] 2.02 mg/dL Normal 1.60-2.40 [facility] Comment on above: Performed By: #### 1 9123-9 #### SHAHID NEVAREZ ([id number]) [facility] ([facility]) [address] [place] [address] No Panel Informationon 03-28 Interpretation and review of laboratory results Normal [facility] Interpretation and review of laboratory results Normal [facility] PT Coag (PPP) [Time]on 03-28 INR Coag (PPP) [Relative time] 1.0 {INR} 0.9 - 1.1 [facility] INR Coag (PPP) [Relative time] 1.0 Normal 0.9-1.1 [facility] Comment on above: Performed By: #### 5 902-2 #### SHAHID NEVAREZ ([id number]) [facility] ([facility]) [address] [place] [address] 44447 Phosphateon 03-28-2024 Phosphate [Mass/Vol] 3.4 mg/dL Normal 2.5-4.9 [facility] Comment on above: Result Comment: The performance characteristics of phosphorus testing in heparinized plasma have been validated by the individual laboratory site where testing is performed. Testing on heparinized plasma is not approved by the FDA; however, such approval is not necessary. Performed By: #### 2 777-1 #### SHAHID NEVAREZ ([id number]) [facility] ([facility]) [facility] [place] [id number] Phosphoruson 03-28-2024 Phosphate [Mass/Vol] 3.4 mg/dL 2.5 - 4 .9 mg/dL [facility] Comment on above: The performance milton acteristics of phosphorus testing in heparinized plasma have been validated by the individual laboratory site where testing is performed. Testing on heparinized plasma is not approved by the FDA; however, such approval is not necessary. Protime-INRon 03-28-2024 PT Coag (PPP) [Time] 11.6 s [facility] Triacylglycerol lipaseon Lipase [Catalytic activity/Vol] 48 U/L Normal 9-82 [facility] Comment on above: Order Comment: Venip uncture immediately after or during the administration of Metamizole may lead to falsely low results. Testing should be performed immediately prior to Metamizole dosing. Performed By: #### 5 7021-8 #### KEY ROQUE ([id number]) [facility] ([facility]) [facility] [place] [id number] Urinalysis complete W Reflex Culture panel (U)on 03-28-2024 Appearance (U) Clear Clear [facility] Bilirubin (U) [Mass/Vol] Negative NEGATIVE [facility] Color (U) Colorless Abnormal Light-Yellow, Yellow, Dark-Yellow [facility] Glucose Auto test strip (U) [Mass/Vol] Normal Normal mg/dL [facility] Interpretation and review of laboratory results Abnormal [facility] Ketones (U) [Mass/Vol] Negative NEGAT NEVIN mg/dL [facility] Leukocyte esterase Auto test strip Ql (U) Negative NEGATIVE [facility] Nitrite Auto test strip Ql (U) Negative NEGATIVE [facility] pH (U) 7.0 [pH] 5.0, 5.5, 6.0, 6.5, 7.0, 7.5, 8.0 [facility] Protein (U) [Mass/Vol] Negative NEGAT NEVIN, 10 (TRACE), 20 (TRACE) mg/dL [facility] RBC (U) [#/Vol] Negative NEGATIVE [facility] Specific gravity (U) [Rel density] 1.008 1.005 - 1.035 [facility] Urobilinogen (U) [Mass/Vol] Normal Normal mg/dL [facility] Appearance (U) Clear Normal Clear [facility] Comment on above: Performed By: #### 5 8077-9 #### SHAHID NEVAREZ ([id number]) [facility] ([facility]) [address] [place], [place] [id number] Bilirubin (U) [Mass/Vol] Negative Normal NEGATIVE [facility] Comment on above: Performed By: #### 5 8077-9 #### SHAHID NEVAREZ ([id number]) [facility] ([facility]) [address] [place] [address] Color (U) Colorless Normal Light-Yellow, Yellow, Dark-Yellow [facility] Comment on above: Performed By: #### 5 8077-9 #### SHAHID NEVAREZ ([id number]) [facility] ([facility]) [address] [place], [place] [address] Glucose Auto test strip (U) [Mass/Vol] Normal Normal Normal [facility] Comment on above: Performed By: #### 5 8077-9 #### SHAHID NEVAREZ ([id number]) [facility] ([facility]) [address] [place] [address] 66821 Ketones (U) [Mass/Vol] Negative Normal [facility] on above: Performed By: #### 5 8077-9 #### SHAHID NEVAREZ ([id number]) [facility] ([facility]) [address] [place] [address] 75790 Leukocyte esterase Auto test strip Ql (U) Negative Normal NEGATIVE [facility] Comment on above: Performed By: #### 5 8077-9 #### SHAHID NEVAREZ ([id number]) [facility] ([facility]) [address] [place] [address] 62503 Nitrite Auto test strip Ql (U) Negative Normal NEGATIVE [facility] Comment on above: Performed By: #### 5 8077-9 #### SHAHID NEVAREZ ([id number]) [facility] ([facility]) [address] [place] [address] 03029 pH (U) 7.0 [pH] Normal 5.0, 5.5, 6.0, 6.5, 7.0, 7.5, 8.0 [facility] Comment on above: Performed By: #### 5 8077-9 #### SHAHID NEVAREZ ([id number]) [facility] ([facility]) [address] [place] [address] Protein (U) [Mass/Vol] Negative Normal NEGAT NEVIN, 10 (TRACE), 20 (TRACE) [facility] Comment on above: Performed By: #### 5 8077-9 #### SHAHID NEVAREZ ([id number]) [facility] ([facility]) [address] [place] [address] RBC (U) [#/Vol] Negative Normal NEGATIVE [facility] Comment on above: Performed By: #### 5 8077-9 #### SHAHID NEVAREZ ([id number]) [facility] ([facility]) [address] [place] [address] Specific gravity (U) [Rel density] 1.008 Normal 1.005-1.035 [facility] Comment on above: Performed By: #### 5 8077-9 #### SHAHID NEVAREZ ([id number]) [facility] ([facility]) [address] [place] [address] Urobilinogen (U) [Mass/Vol] Normal Normal Normal [facility] Comment on above: Performed By: #### 5 8077-9 #### SHAHID NEVAREZ ([id number]) [facility] ([facility]) [address] [place] [address] XR CERVICAL SPINE 2-3 VIEWSo n 03-28-2024 XR CERVICAL SPINE 2-3 VIEWS Interpreted By: Susy Nance, STUDY: XR CERVICAL SPINE 2-3 VIEWS; 03/28/2024 11:27 am 3 views. INDICATION: Signs/Symptoms:NECK PAIN/?DJD. COMPARISON: None. ACCESSION NUMBER(S): [id number] ORDERING CLINICIAN: LORENZA CARVER FINDINGS: There is [...] Susy Nance 03/28/2024 11:48 AM Dictation workstation: [id number] [facility] XR Cervical spine 2 or 3 Vie wson 03-28-2024 1. Degenerative change with no acute bony abnormality. 2. 2 mm retrolisthesis of C5 with respect to C4 and C6. MACRO: None Signed by: Susy Nance 03/28/2024 11:48 AM Dictation workstation: [id number] Interpreted By: Susy Nance, STUDY: XR CERVICAL SPINE 2-3 VIEWS; 03/28/2024 11:27 am 3 views. INDICATION: Signs/Symptoms:NECK PAIN/?DJD. COMPARISON: None. ACCESSION NUMBER(S): [id number] ORDERING CLINICIAN: LORENZA CARVER FINDINGS: There is [...] INDICATION: Signs/Symptoms:NECK PAIN/?DJD. COMPARISON: None. ACCESSION NUMBER(S): [id number] ORDERING CLINICIAN: LORENZA CARVER FINDINGS: There is [...] Susy Nance 03/28/2024 11:48 AM Dictation workstation: [id number] [facility] Work Phone: Radiology Study observation (narrative) [facility] Work Phone: XR Cervical spine 2 or 3 Vie wsOrdered By: Susy Nance on 03-28-2024 [facility] Work Phone: aPTT Coag (PPP) [Time]on The APTT is no longe r used for monitoring Unfractionated Heparin Therapy. For monitoring Heparin Therapy, use the Heparin Assay. [facility] Borrelia burgdorferi.VlsE1+p epC10 Abon 03-27-2024 Borrelia burgdorferi.VlsE1+pepC 10 Ab 5.80 IV High <=0.90 [facility] Comment on above: Result Comment: REFERENCE INTERVAL: B. burgdorferi VlsE1/pepC10 Abs, ROCÍO 0.90 IV or less..........Negative: VlsE1 and pepC10 antibodies to B. burgdorferi not detected. 0.91 - 1.09 IV...........Equivocal: Repeat testing in 10-14 days may be helpful. 1.10 IV or greater.......Positive: VlsE1 and pepC10 antibodies to B. burgdorferi detected. Performed By: [facility] [address] [place] [address] Geoint Analyst: Archie Bernard MD, PhD CLIA Number: [id number] Performed By: #### 5 0957-0 #### KEY ROQUE ([id number]) [facility] ([facility]) [address] [place] [address] C reactive proteinon 024 CRP [Mass/Vol] 1.71 mg/dL High <1.00 [facility] Comment on above: Performed By: #### 1 988-5 #### SHAHID NEVAREZ ([id number]) [facility] ([facility]) [address] [place] [address] 41400 CBC W Auto Differential pane l (Bld)on 03-27-2024 Basophils (Bld) [#/Vol] 0.04 x10*3/uL Normal 0.00-0.10 [facility] Comment on above: Performed By: #### 5 7021-8 #### SHAHID NEVAREZ ([id number]) [facility] ([facility]) [address] [place] [address] 37866 Basophils/100 WBC (Bld) 0.6 % Normal 0.0-2.0 [facility] Comment on above: Performed By: #### 5 7021-8 #### SHAHID NEVAREZ ([id number]) [facility] ([facility]) [address] [place] [address] 94186 Eosinophils (Bld) [#/Vol] 0.08 x10*3/uL Normal 0.00-0.40 [facility] Comment on above: Performed By: #### 5 7021-8 #### SHAHID NEVAREZ ([id number]) [facility] ([facility]) [address] [place] [address] 50608 Eosinophils/100 WBC (Bld) 1.3 % Normal 0.0-6.0 [facility] Comment on above: Performed By: #### 5 7021-8 #### SHAHID NEVAREZ ([id number]) [facility] ([facility]) [address] [place] [address] 16059 Erythrocyte distribution width (RBC) [Ratio] 14.5 % Normal 11.5-14.5 [facility] Comment on above: Performed By: #### 5 7021-8 #### SHAHID NEVAREZ ([id number]) [facility] ([facility]) [address] [place], [place] [address] Hematocrit (Bld) [Volume fraction] 35.5 % Low 36.0-46.0 [facility] Comment on above: Performed By: #### 5 7021-8 #### SHAHID NEVAREZ ([id number]) [facility] ([facility]) [address] [place] [address] 20136 Hemoglobin (Bld) [Mass/Vol] 11.6 g/dL Low 12.0-16.0 [facility] Comment on above: Performed By: #### 5 7021-8 #### SHAHID NEVAREZ ([id number]) [facility] ([facility]) [address] [place] [address] 79070 Immature granulocytes (Bld) [#/Vol] 0.02 x10*3/uL Normal 0.00-0.50 [facility] Comment on above: Performed By: #### 5 7021-8 #### SHAHID NEVAREZ ([id number]) [facility] ([facility]) [address] [place] [address] 74982 Immature granulocytes/100 WBC (Bld) 0.3 % Normal 0.0-0.9 [facility] Comment on above: Result Comment: Leesa ture Granulocyte Count (IG) includes promyelocytes, myelocytes and metamyelocytes but does not include bands. Percent differential counts (%) should be interpreted in the context of the absolute cell counts (cells/UL). Performed By: #### 5 7021-8 #### SHAHID NEVAREZ ([id number]) [facility] ([facility]) [address] [place] [address] 09776 Lymphocytes (Bld) [#/Vol] 0.79 x10*3/uL Low 0.80-3.00 [facility] Comment on above: Performed By: #### 5 7021-8 #### SHAHID NEVAREZ ([id number]) [facility] ([facility]) [address] [place] [address] 78141 Lymphocytes/100 WBC (Bld) 12.8 % Normal 13.0-44.0 [facility] Comment on above: Performed By: #### 5 7021-8 #### SHAHID NEVAREZ ([id number]) [facility] ([facility]) [address] [place] [address] 79091 MCH (RBC) [Entitic mass] 30.9 pg Normal 26.0-34.0 [facility] Comment on above: Performed By: #### 5 7021-8 #### SHAHID NEVAREZ ([id number]) [facility] ([facility]) [address] [place] [address] 46615 MCHC (RBC) [Mass/Vol] 32.7 g/dL Normal 32.0-36.0 [facility] Comment on above: Performed By: #### 5 7021-8 #### SHAHID NEVAREZ ([id number]) [facility] ([facility]) [address] [place] [address] 63873 MCV (RBC) [Entitic vol] 94 fL Normal 80-100 [facility] Comment on above: Performed By: #### 5 7021-8 #### SHAHID NEVAREZ ([id number]) [facility] ([facility]) [address] [place] [address] 54412 Monocytes (Bld) [#/Vol] 0.41 x10*3/uL Normal 0.05-0.80 [facility] Comment on above: Performed By: #### 5 7021-8 #### SHAHID NEVAREZ ([id number]) [facility] ([facility]) [address] [place] [address] 30688 Monocytes/100 WBC (Bld) 6.7 % Normal 2.0-10.0 [facility] Comment on above: Performed By: #### 5 7021-8 #### SHAHID NEVAREZ ([id number]) [facility] ([facility]) [address] [place] [address] 63647 Neutrophils (Bld) [#/Vol] 4.82 x10*3/uL Normal 1.60-5.50 [facility] Comment on above: Result Comment: Perc ent differential counts (%) should be interpreted in the context of the absolute cell counts (cells/uL). Performed By: #### 5 7021-8 #### SHAHID NEVAREZ ([id number]) [facility] ([facility]) [address] [place] [address] 86916 Neutrophils/100 WBC (Bld) 78.3 % Normal 40.0-80.0 [facility] Comment on above: Performed By: #### 5 7021-8 #### SHAHID NEVAREZ ([id number]) [facility] ([facility]) [address] [place] [address] 37109 Nucleated RBC/100 WBC (Bld) [Ratio] 0.0 /100 WBCs Normal 0.0-0.0 [facility] Comment on above: Performed By: #### 5 7021-8 #### SHAHID NEVAREZ ([id number]) [facility] ([facility]) [address] [place] [address] 97751 Platelets (Bld) [#/Vol] 104 x10*3/uL Low 150-450 [facility] Comment on above: Result Comment: vort exed, platelets showed clumping. Recommend blue top draw also next time. Performed By: #### 5 7021-8 #### SHAHID NEVAREZ ([id number]) [facility] ([facility]) [address] [place] [address] 06111 RBC (Bld) [#/Vol] 3.76 x10*6/uL Low 4.00-5.20 [facility] Comment on above: Performed By: #### 5 7021-8 #### SHAHID NEVAREZ ([id number]) [facility] ([facility]) [address] [place] [address] 50301 WBC (Bld) [#/Vol] 6.2 x10*3/uL Normal 4.4-11.3 [facility] Comment on above: Performed By: #### 5 7021-8 #### SHAHID NEVAREZ ([id number]) [facility] ([facility]) [address] [place] [address] 72763 Comprehensive metabolic 2000 panelon 03-27-2024 Albumin BCP dye [Mass/Vol] 4.0 g/dL Normal 3.4-5.0 [facility] Comment on above: Performed By: #### 2 4323-8 #### SHAHID NEVAREZ ([id number]) [facility] ([facility]) [address] [place] [address] 65751 ALP [Catalytic activity/Vol] 78 U/L Normal 33-136 [facility] Comment on above: Performed By: #### 2 432-8 #### SHAHID NEVAREZ ([id number]) [facility] ([facility]) [address] [place] [address] ALT With P-5'-P [Catalytic activity/Vol] 33 U/L Normal 7-45 [facility] Comment on above: Result Comment: Mimi ents treated with Sulfasalazine may generate falsely decreased results for ALT. Performed By: #### 2 4323-8 #### SHAHID NEVAREZ ([id number]) [facility] ([facility]) [address] [place] [address] Anion gap [Moles/Vol] 10 mmol/L Normal [facility] Comment on above: Performed By: #### 2 432-8 #### SHAHID NEVAREZ ([id number]) [facility] ([facility]) [address] [place] [address] 59667 AST With P-5'-P [Catalytic activity/Vol] 30 U/L Normal 9-39 [facility] Comment on above: Performed By: #### 2 4322-8 #### SHAHID NEVAREZ ([id number]) [facility] ([facility]) [address] [place] [address] Bilirubin [Mass/Vol] 0.7 mg/dL Normal 0.0-1.2 [facility] Comment on above: Performed By: #### 2 432-8 #### SHAHID NEVAREZ ([id number]) [facility] ([facility]) [address] [place] [address] Calcium [Mass/Vol] 9.2 mg/dL Normal 8.6-10.3 [facility] Comment on above: Performed By: #### 2 4323-8 #### SHAHID NEVAREZ ([id number]) [facility] ([facility]) [address] [place] [address] Chloride [Moles/Vol] 92 mmol/L Low 98-107 [facility] Comment on above: Performed By: #### 2 4323-8 #### SHAHID NEVAREZ ([id number]) [facility] ([facility]) [address] [place] [address] CO2 [Moles/Vol] 29 mmol/L Normal 21-32 [facility] Comment on above: Performed By: #### 2 4323-8 #### SHAHID NEVAREZ ([id number]) [facility] ([facility]) [address] [place] [address] 02681 Creatinine [Mass/Vol] 0.88 mg/dL Normal 0.50-1.05 [facility] Comment on above: Performed By: #### 2 4323-8 #### SHAHID NEVAREZ ([id number]) [facility] ([facility]) [address] [place] [address] 47399 Glomerular filtration rate/1.73 sq M.predicted 67 mL/min/1.73m*2 Normal >60 [facility] Comment on above: Result Comment: Calc ulations of estimated GFR are performed using the 2020 CKD-EPI Study Refit equation without the race variable for the IDMS-Traceable creatinine methods. https://jasn.asnjournals.org/content/early/ASN.31973 37004 Performed By: #### 2 432-8 #### SHAHID NEVAREZ ([id number]) [facility] ([facility]) [address] [place] [address] 40628 Glucose [Mass/Vol] 75 mg/dL Normal 74-99 [facility] Comment on above: Performed By: #### 2 432-8 #### SHAHID NEVAREZ ([id number]) [facility] ([facility]) [address] [place] [address] 60940 Potassium [Moles/Vol] 4.4 mmol/L Normal 3.5-5.3 [facility] Comment on above: Performed By: #### 2 4323-8 #### SHAHID NEVAREZ ([id number]) [facility] ([facility]) [address] [place] [address] 80417 Protein [Mass/Vol] 6.8 g/dL Normal 6.4-8.2 [facility] Comment on above: Performed By: #### 2 4323-8 #### SHAHID NEVAREZ ([id number]) [facility] ([facility]) [address] [place] [address] Sodium [Moles/Vol] 127 mmol/L Low 136-145 [facility] Comment on above: Result Comment: Conf irmed by repeat analysis Performed By: #### 2 4323-8 #### SHAHID NEVAREZ ([id number]) [facility] ([facility]) [address] [place] [address] Urea nitrogen [Mass/Vol] 16 mg/dL Normal 6-23 [facility] Comment on above: Performed By: #### 2 4323-8 #### SHAHID NEVAREZ ([id number]) [facility] ([facility]) [address] [place] [address] ESR Westergren method (Bld) [Velocity]on 03-27-2024 ESR (Bld) [Velocity] 53 mm/h High 0-30 [facility] Comment on above: Performed By: #### 4 537-7 #### SHAHID NEVAREZ ([id number]) [facility] ([facility]) [address] [place] [address] Ferritinon 03-27-2024 Ferritin [Mass/Vol] 346 ng/mL High 8-150 [facility] Comment on above: Performed By: #### 5 0957-0 #### SHAHID NEVAREZ ([id number]) [facility] ([facility]) [address] [place] [address] LYME AB MODIFIED 2-TIER TEST ING, 2ND TIERon 03-27-2024 B. burgdorferi IgG and IgM IA (S) [Interp] Positive Abnormal Negative [facility] Comment on above: Result Comment: Both IgM and IgG-class antibodies to the Borrelia species causing Lyme disease were detected, suggesting recent or remote past infection. If both first tier screen test and second tier tests are equivocal, consider repeat testing in 7-14 days if clinically warranted. Performed By: [facility] [address] [place] [address] Ge[employer] Analyst: Archie Bernard MD, PhD CLIA Number: [id number] Performed By: #### 5 0957-0 #### SHAHID NEVAREZ ([id number]) [facility] ([facility]) [address] [place] [address] B. burgdorferi IgG IA Ql 1.07 IV High <=0.90 [facility] Comment on above: Result Comment: Reference Interval: Borrelia burgdorferi Ab, IgG by ROCÍO 0.90 IV or less.......... Negative: IgG antibodies to B. burgdorferi not detected. 0.91-1.09 IV............. Equivocal 1.10 IV or greater....... Positive: IgG antibodies to B. burgdorferi detected. Performed By: #### 5 0957-0 #### SHAHID NEVAREZ ([id number]) [facility] ([facility]) [address] [place] [address] B. burgdorferi IgM IA Ql 6.37 IV High <=0.90 [facility] Comment on above: Result Comment: Reference Interval: Borrelia burgdorferi Ab, IgM by ROCÍO 0.90 IV or less.......... Negative: IgM antibodies to B. burgdorferi not detected. 0.91-1.09 IV............. Equivocal 1.10 IV or greater....... Positive: IgM antibodies to B. burgdorferi detected. Performed By: #### 5 0957-0 #### SHAHID NEVAREZ ([id number]) [facility] ([facility]) [address] [place] [address] CBC W Auto Differential pane l (Bld)on 03-23-2024 Basophils (Bld) [#/Vol] 0.03 x10*3/uL Normal 0.00-0.10 [facility] Comment on above: Performed By: #### 5 7021-8 #### SHAHID NEVAREZ ([id number]) [facility] ([facility]) [address] [place] [address] Basophils/100 WBC (Bld) 0.4 % Normal 0.0-2.0 [facility] Comment on above: Performed By: #### 5 7021-8 #### SHAHID NEVAREZ ([id number]) [facility] ([facility]) [address] [place] [address] Eosinophils (Bld) [#/Vol] 0.13 x10*3/uL Normal 0.00-0.40 [facility] Comment on above: Performed By: #### 5 7021-8 #### SHAHID NEVAREZ ([id number]) [facility] ([facility]) [address] [place] [address] 35185 Eosinophils/100 WBC (Bld) 1.9 % Normal 0.0-6.0 [facility] Comment on above: Performed By: #### 5 7021-8 #### SHAHID NEVAREZ ([id number]) [facility] ([facility]) [address] [place] [id number] Erythrocyte distribution width (RBC) [Ratio] 14.7 % High 11.5-14.5 [facility] Comment on above: Performed By: #### 5 7021-8 #### SHAHID NEVAREZ ([id number]) [facility] ([facility]) [address] [place] [address] Hematocrit (Bld) [Volume fraction] 34.3 % Low 36.0-46.0 [facility] [facility] Comment on above: Performed By: #### 5 7021-8 #### SHAHID NEVAREZ ([id number]) [facility] ([facility]) [address] [place] [address] 03219 Hemoglobin (Bld) [Mass/Vol] 11.1 g/dL Low 12.0-16.0 [facility] Comment on above: Performed By: #### 5 7021-8 #### SHAHID NEVAREZ ([id number]) [facility] ([facility]) [address] [place] [address] 80884 Immature granulocytes (Bld) [#/Vol] 0.03 x10*3/uL Normal 0.00-0.50 [facility] Comment on above: Performed By: #### 5 7021-8 #### SHAHID NEVAREZ ([id number]) [facility] ([facility]) [address] [place] [address] 05488 Immature granulocytes/100 WBC (Bld) 0.4 % Normal 0.0-0.9 [facility] Comment on above: Result Comment: Leesa ture Granulocyte Count (IG) includes promyelocytes, myelocytes and metamyelocytes but does not include bands. Percent differential counts (%) should be interpreted in the context of the absolute cell counts (cells/UL). Performed By: #### 5 7021-8 #### SHAHID NEVAREZ ([id number]) [facility] ([facility]) [address] [place] [address] 41519 Lymphocytes (Bld) [#/Vol] 1.23 x10*3/uL Normal 0.80-3.00 [facility] Comment on above: Performed By: #### 5 7021-8 #### SHAHID NEVAREZ ([id number]) [facility] ([facility]) [address] [place] [address] 60501 Lymphocytes/100 WBC (Bld) 18.1 % Normal 13.0-44.0 [facility] Comment on above: Performed By: #### 5 7021-8 #### SHAHID NEVAREZ ([id number]) [facility] ([facility]) [address] [place] [address] 28833 MCH (RBC) [Entitic mass] 30.4 pg Normal 26.0-34.0 [facility] Comment on above: Performed By: #### 5 7021-8 #### SHAHID NEVAREZ ([id number]) [facility] ([facility]) [address] [place] [address] 21327 MCHC (RBC) [Mass/Vol] 32.4 g/dL Normal 32.0-36.0 [facility] Comment on above: Performed By: #### 5 7021-8 #### SHAHID NEVAREZ ([id number]) [facility] ([facility]) [address] [place] [address] 01047 MCV (RBC) [Entitic vol] 94 fL Normal 80-100 [facility] Comment on above: Performed By: #### 5 7021-8 #### SHAHID NEVAREZ ([id number]) [facility] ([facility]) [address] [place] [address] 12699 Monocytes (Bld) [#/Vol] 0.64 x10*3/uL Normal 0.05-0.80 [facility] Comment on above: Performed By: #### 5 7021-8 #### SHAHID NEVAREZ ([id number]) [facility] ([facility]) [address] [place] [address] 87793 Monocytes/100 WBC (Bld) 9.4 % Normal 2.0-10.0 [facility] Comment on above: Performed By: #### 5 7021-8 #### SHAHID NEVAREZ ([id number]) [facility] ([facility]) [address] [place] [address] 78481 Neutrophils (Bld) [#/Vol] 4.75 x10*3/uL Normal 1.60-5.50 [facility] Comment on above: Result Comment: Perc ent differential counts (%) should be interpreted in the context of the absolute cell counts (cells/uL). Performed By: #### 5 7021-8 #### SHAHID NEVAREZ ([id number]) [facility] ([facility]) [address] [place] [address] 39000 Neutrophils/100 WBC (Bld) 69.8 % Normal 40.0-80.0 [facility] Comment on above: Performed By: #### 5 7021-8 #### SHAHID NEVAREZ ([id number]) [facility] ([facility]) [address] [place] [address] 36405 Nucleated RBC/100 WBC (Bld) [Ratio] 0.0 /100 WBCs Normal 0.0-0.0 [facility] Comment on above: Performed By: #### 5 7021-8 #### SHAHID NEVAREZ ([id number]) [facility] ([facility]) [address] [place] [address] 39971 Platelets (Bld) [#/Vol] 190 x10*3/uL Normal 150-450 [facility] Comment on above: Result Comment: Plea se redraw in Blue top tube. Platelet count may be higher than reported due to presence of Platelet Clumps. Performed By: #### 5 7021-8 #### SHAHID NEVAREZ ([id number]) [facility] ([facility]) [address] [place] [address] 33809 RBC (Bld) [#/Vol] 3.65 x10*6/uL Low 4.00-5.20 [facility] Comment on above: Performed By: #### 5 7021-8 #### SHAHID NEVAREZ ([id number]) [facility] ([facility]) [address] [place] [address] 18473 WBC (Bld) [#/Vol] 6.8 x10*3/uL Normal 4.4-11.3 [facility] Comment on above: Performed By: #### 5 7021-8 #### SHAHID NEVAREZ ([id number]) [facility] ([facility]) [address] [place] [address] Comprehensive metabolic 2000 panelon 03-23-2024 Albumin BCP dye [Mass/Vol] 3.8 g/dL Normal 3.4-5.0 [facility] Comment on above: Performed By: #### 2 4323-8 #### SHAHID NEVAREZ ([id number]) [facility] ([facility]) [address] [place] [address] 33385 ALP [Catalytic activity/Vol] 83 U/L Normal 33-136 [facility] Comment on above: Performed By: #### 2 4323-8 #### SHAHID NEVAREZ ([id number]) [facility] ([facility]) [address] [place] [address] 87103 ALT With P-5'-P [Catalytic activity/Vol] 40 U/L Normal 7-45 [facility] Comment on above: Result Comment: Mimi ents treated with Sulfasalazine may generate falsely decreased results for ALT. Performed By: #### 2 4323-8 #### SHAHID NEVAREZ ([id number]) [facility] ([facility]) [address] [place] [address] 60577 Anion gap [Moles/Vol] 10 mmol/L Normal 10-20 [facility] Comment on above: Performed By: #### 2 4323-8 #### SHAHID NEVAREZ ([id number]) [facility] ([facility]) [address] [place] [address] 71205 AST With P-5'-P [Catalytic activity/Vol] 28 U/L Normal 9-39 [facility] Comment on above: Performed By: #### 2 4323-8 #### SHAHID NEVAREZ ([id number]) [facility] ([facility]) [address] [place] [address] Bilirubin [Mass/Vol] 0.5 mg/dL Normal 0.0-1.2 [facility] Comment on above: Performed By: #### 2 4323-8 #### SHAHID NEVAREZ ([id number]) [facility] ([facility]) [address] [place] [address] 39834 Calcium [Mass/Vol] 8.9 mg/dL Normal 8.6-10.3 [facility] Comment on above: Performed By: #### 2 4323-8 #### SHAHID NEVAREZ ([id number]) [facility] ([facility]) [address] [place] [address] 81416 Chloride [Moles/Vol] 97 mmol/L Low 98-107 [facility] Comment on above: Performed By: #### 2 4323-8 #### SHAHID NEVAREZ ([id number]) [facility] ([facility]) [address] [place] [address] 63910 CO2 [Moles/Vol] 29 mmol/L Normal 21-32 [facility] Comment on above: Performed By: #### 2 4323-8 #### SHAHID NEAVREZ ([id number]) [facility] ([facility]) [address] [place] [address] 11788 Creatinine [Mass/Vol] 0.87 mg/dL Normal 0.50-1.05 [facility] Comment on above: Performed By: #### 2 4323-8 #### SHAHID NEVAREZ ([id number]) [facility] ([facility]) [address] [place] [address] 89892 Glomerular filtration rate/1.73 sq M.predicted 68 mL/min/1.73m*2 Normal >60 [facility] Comment on above: Result Comment: Calc ulations of estimated GFR are performed using the 2020 CKD-EPI Study Refit equation without the race variable for the IDMS-Traceable creatinine methods. https://jasn.asnjournals.org/content//ASN.16009 28215 Performed By: #### 2 4323-8 #### SHAHID NEVAREZ ([id number]) [facility] ([facility]) [address] [place] [address] 08405 Glucose [Mass/Vol] 92 mg/dL Normal 74-99 [facility] Comment on above: Performed By: #### 2 4323-8 #### SHAHID NEVAREZ ([id number]) [facility] ([facility]) [address] [place] [address] 56422 Potassium [Moles/Vol] 4.5 mmol/L Normal 3.5-5.3 [facility] Comment on above: Performed By: #### 2 4323-8 #### SHAHID NEVAREZ ([id number]) [facility] ([facility]) [address] [place] [address] 58193 Protein [Mass/Vol] 6.5 g/dL Normal 6.4-8.2 [facility] Comment on above: Performed By: #### 2 4323-8 #### SHAHID NEVAREZ ([id number]) [facility] ([facility]) [address] [place] [address] 01081 Sodium [Moles/Vol] 131 mmol/L Low 136-145 [facility] Comment on above: Performed By: #### 2 4323-8 #### SHAHID NEVAREZ ([id number]) [facility] ([facility]) [address] [place] [address] 50987 Urea nitrogen [Mass/Vol] 15 mg/dL Normal 6-23 [facility] Comment on above: Performed By: #### 2 4323-8 #### SHAHID NEVAREZ ([id number]) [facility] ([facility]) [address] [place] [address] 23126 CBC W Auto Differential pane l (Bld)on 03-16-2024 Basophils (Bld) [#/Vol] 0.03 10*3/uL [facility] Basophils/100 WBC (Bld) 0.4 % 0.0 - 2.0 % [facility] Eosinophils (Bld) [#/Vol] 0.19 10*3/uL [facility] Eosinophils/100 WBC (Bld) 2.6 % 0.0 - 6.0 % [facility] Erythrocyte distribution width (RBC) [Ratio] 14.6 % High 11.5 - 14.5 % [facility] Hematocrit (Bld) [Volume fraction] 32.3 % Low 36.0 - 46.0 % [facility] Hemoglobin (Bld) [Mass/Vol] 10.6 g/dL Low 12.0 - 16.0 g/dL [facility] Immature granulocytes (Bld) [#/Vol] 0.02 10*3/uL [facility] Immature granulocytes/100 WBC (Bld) 0.3 % 0.0 - 0.9 % [facility] Comment on above: Immature Granulocyte Count (IG) includes promyelocytes, myelocytes and metamyelocytes but does not include bands. Percent differential counts (%) should be interpreted in the context of the absolute cell counts (cells/UL). Interpretation and review of laboratory results Abnormal [facility] Lymphocytes (Bld) [#/Vol] 1.34 10*3/uL [facility] Lymphocytes/100 WBC (Bld) 18.7 % 13.0 - 44.0 % [facility] MCH (RBC) [Entitic mass] 30.5 pg 26.0 - 34.0 pg [facility] MCHC (RBC) [Mass/Vol] 32.8 g/dL 32.0 - 36.0 g/dL [facility] MCV (RBC) [Entitic vol] 93 fL 80 - 100 fL [facility] Monocytes (Bld) [#/Vol] 0.45 10*3/uL [facility] Monocytes/100 WBC (Bld) 6.3 % 2.0 - 10.0 % [facility] Neutrophils (Bld) [#/Vol] 5.14 10*3/uL [facility] Comment on above: Percent differential counts (%) should be interpreted in the context of the absolute cell counts (cells/uL). Neutrophils/100 WBC (Bld) 71.7 % 40.0 - 80.0 % [facility] Nucleated RBC/100 WBC (Bld) [Ratio] 0.0 % [facility] Platelets (Bld) [#/Vol] 174 10*3/uL [facility] Comment on above: Platelet count verif ied by smear review. RBC (Bld) [#/Vol] 3.48 10*6/uL Low [facility] WBC (Bld) [#/Vol] 7.2 10*3/uL [facility] Basophils (Bld) [#/Vol] 0.03 x10*3/uL Normal 0.00-0.10 [facility] Comment on above: Performed By: #### 5 7021-8 #### SHAHID NEVAREZ ([id number]) [facility] ([facility]) [address] [place] [address] 16324 Basophils/100 WBC (Bld) 0.4 % Normal 0.0-2.0 [facility] Comment on above: Performed By: #### 5 7021-8 #### SHAHID NEVAREZ ([id number]) [facility] ([facility]) [address] [place] [address] 53661 Eosinophils (Bld) [#/Vol] 0.19 x10*3/uL Normal 0.00-0.40 [facility] Comment on above: Performed By: #### 5 7021-8 #### SHAHID NEVAREZ ([id number]) [facility] ([facility]) [address] [place] [address] 71463 Eosinophils/100 WBC (Bld) 2.6 % Normal 0.0-6.0 [facility] Comment on above: Performed By: #### 5 7021-8 #### SHAHID NEVAREZ ([id number]) [facility] ([facility]) [address] [place] [address] 26768 Erythrocyte distribution width (RBC) [Ratio] 14.6 % High 11.5-14.5 [facility] Comment on above: Performed By: #### 5 7021-8 #### SHAHID NEVAREZ ([id number]) [facility] ([facility]) [address] [place] [address] 05671 Hematocrit (Bld) [Volume fraction] 32.3 % Low 36.0-46.0 [facility] Comment on above: Performed By: #### 5 7021-8 #### SHAHID NEVAREZ ([id number]) [facility] ([facility]) [address] [place] [address] 98180 Hemoglobin (Bld) [Mass/Vol] 10.6 g/dL Low 12.0-16.0 [facility] Comment on above: Performed By: #### 5 7021-8 #### SHAHID NEVAREZ ([id number]) [facility] ([facility]) [address] [place] [address] 73590 Immature granulocytes (Bld) [#/Vol] 0.02 x10*3/uL Normal 0.00-0.50 [facility] Comment on above: Performed By: #### 5 7021-8 #### SHAHID NEVAREZ ([id number]) [facility] ([facility]) [address] [place] [address] 83176 Immature granulocytes/100 WBC (Bld) 0.3 % Normal 0.0-0.9 [facility] Comment on above: Result Comment: Leesa ture Granulocyte Count (IG) includes promyelocytes, myelocytes and metamyelocytes but does not include bands. Percent differential counts (%) should be interpreted in the context of the absolute cell counts (cells/UL). Performed By: #### 5 7021-8 #### SHAHID NEVAREZ ([id number]) [facility] ([facility]) [address] [place] [address] 18346 Lymphocytes (Bld) [#/Vol] 1.34 x10*3/uL Normal 0.80-3.00 [facility] Comment on above: Performed By: #### 5 7021-8 #### SHAHID NEVAREZ ([id number]) [facility] ([facility]) [address] [place] [address] 46896 Lymphocytes/100 WBC (Bld) 18.7 % Normal 13.0-44.0 [facility] Comment on above: Performed By: #### 5 7021-8 #### SHAHID NEVAREZ ([id number]) [facility] ([facility]) [facility] [place] [address] MCH (RBC) [Entitic mass] 30.5 pg Normal 26.0-34.0 [facility] Comment on above: Performed By: #### 5 7021-8 #### SHAHID NEVAREZ ([id number]) [facility] ([facility]) [address] [place] [address] 22881 MCHC (RBC) [Mass/Vol] 32.8 g/dL Normal 32.0-36.0 [facility] Comment on above: Performed By: #### 5 7021-8 #### SHAHID NEVAREZ ([id number]) [facility] ([facility]) [address] [place] [address] 41102 MCV (RBC) [Entitic vol] 93 fL Normal 80-100 [facility] Comment on above: Performed By: #### 5 7021-8 #### SHAHID NEVAREZ ([id number]) [facility] ([facility]) [address] [place] [address] 39292 Monocytes (Bld) [#/Vol] 0.45 x10*3/uL Normal 0.05-0.80 [facility] Comment on above: Performed By: #### 5 7021-8 #### SHAHID NEVAREZ ([id number]) [facility] ([facility]) [address] [place] [address] 36747 Monocytes/100 WBC (Bld) 6.3 % Normal 2.0-10.0 [facility] Comment on above: Performed By: #### 5 7021-8 #### SHAHID NEVAREZ ([id number]) [facility] ([facility]) [address] [place] [address] 71490 Neutrophils (Bld) [#/Vol] 5.14 x10*3/uL Normal 1.60-5.50 [facility] Comment on above: Result Comment: Perc ent differential counts (%) should be interpreted in the context of the absolute cell counts (cells/uL). Performed By: #### 5 7021-8 #### SHAHID NEVAREZ ([id number]) [facility] ([facility]) [address] [place] [address] Neutrophils/100 WBC (Bld) 71.7 % Normal 40.0-80.0 [facility] Comment on above: Performed By: #### 5 7021-8 #### SHAHID NEVAREZ ([id number]) [facility] ([facility]) [address] [place] [address] 48761 Nucleated RBC/100 WBC (Bld) [Ratio] 0.0 /100 WBCs Normal 0.0-0.0 [facility] Comment on above: Performed By: #### 5 7021-8 #### SHAHID NEVAREZ ([id number]) [facility] ([facility]) [address] [place] [address] 92614 Platelets (Bld) [#/Vol] 174 x10*3/uL Normal 150-450 [facility] Comment on above: Result Comment: Plat elet count verified by smear review. Performed By: #### 5 7021-8 #### SHAHID NEVAREZ ([id number]) [facility] ([facility]) [address] [place] [address] 41616 RBC (Bld) [#/Vol] 3.48 x10*6/uL Low 4.00-5.20 [facility] Comment on above: Performed By: #### 5 7021-8 #### SHAHID NEVAREZ ([id number]) [facility] ([facility]) [address] [place] [address] 68225 WBC (Bld) [#/Vol] 7.2 x10*3/uL Normal 4.4-11.3 [facility] Comment on above: Performed By: #### 5 7021-8 #### SHAHID NEVAREZ ([id number]) [facility] ([facility]) [address] [place] [address] 55332 Erythrocyte distribution width (RBC) [Ratio] 14.8 % High 11.5-14.5 [facility] Comment on above: Performed By: #### 5 7021-8 #### SHAHID NEVAREZ ([id number]) [facility] ([facility]) [address] [place] [address] Hematocrit (Bld) [Volume fraction] 35.0 % Low 36.0-46.0 [facility] Comment on above: Performed By: #### 5 7021-8 #### SHAHID NEVAREZ ([id number]) [facility] ([facility]) [address] [place] [address] 42451 Hemoglobin (Bld) [Mass/Vol] 11.3 g/dL Low 12.0-16.0 [facility] Comment on above: Performed By: #### 5 7021-8 #### SHAHID NEVAREZ ([id number]) [facility] ([facility]) [address] [place] [address] Immature granulocytes (Bld) [#/Vol] 0.03 x10*3/uL Normal 0.00-0.50 [facility] Comment on above: Performed By: #### 5 7021-8 #### SHAHID NEVAREZ ([id number]) [facility] ([facility]) [address] [place] [address] Immature granulocytes/100 WBC (Bld) 0.4 % Normal 0.0-0.9 [facility] Comment on above: Result Comment: Leesa ture Granulocyte Count (IG) includes promyelocytes, myelocytes and metamyelocytes but does not include bands. Percent differential counts (%) should be interpreted in the context of the absolute cell counts (cells/UL). Performed By: #### 5 7021-8 #### SHAHID NEVAREZ ([id number]) [facility] ([facility]) [address] [place], [place] [id number] MCH (RBC) [Entitic mass] 30.5 pg Normal 26.0-34.0 [facility] Comment on above: Performed By: #### 5 7021-8 #### SHAHID NEVAREZ ([id number]) [facility] ([facility]) [address] [place] [address] 00817 MCHC (RBC) [Mass/Vol] 32.3 g/dL Normal 32.0-36.0 [facility] Comment on above: Performed By: #### 5 7021-8 #### SHAHID NEVAREZ ([id number]) [facility] ([facility]) [address] [place] [address] 37621 MCV (RBC) [Entitic vol] 94 fL Normal 80-100 [facility] Comment on above: Performed By: #### 5 7021-8 #### SHAHID NEVAREZ ([id number]) [facility] ([facility]) [address] [place] [address] 55174 Nucleated RBC/100 WBC (Bld) [Ratio] 0.0 /100 WBCs Normal 0.0-0.0 [facility] Comment on above: Performed By: #### 5 7021-8 #### SHAHID NEVAREZ ([id number]) [facility] ([facility]) [address] [place] [address] 37825 Platelets (Bld) [#/Vol] 26 x10*3/uL Critically low 150-450 [facility] Comment on above: Performed By: #### 5 7021-8 #### SHAHID NEVAREZ ([id number]) [facility] ([facility]) [address] [place] [address] 97045 RBC (Bld) [#/Vol] 3.71 x10*6/uL Low 4.00-5.20 [facility] Comment on above: Performed By: #### 5 7021-8 #### SHAHID NEVAREZ ([id number]) [facility] ([facility]) [address] [place] [address] 37120 WBC (Bld) [#/Vol] 7.9 x10*3/uL Normal 4.4-11.3 [facility] Comment on above: Performed By: #### 5 7021-8 #### SHAHID NEVAREZ ([id number]) [facility] ([facility]) [address] [place] [address] 00383 Comprehensive metabolic 2000 panelon 03-16-2024 Albumin BCP dye [Mass/Vol] 3.7 g/dL 3.4 - 5.0 g/dL [facility] ALP [Catalytic activity/Vol] 123 U/L 33 - 136 U/L [facility] ALT With P-5'-P [Catalytic activity/Vol] 108 U/L High 7 - 45 U/L [facility] Comment on above: Patients treated wit h Sulfasalazine may generate falsely decreased results for ALT. Anion gap [Moles/Vol] 10 mmol/L 10 - 2 0 mmol/L [facility] AST With P-5'-P [Catalytic activity/Vol] 89 U/L High 9 - 39 U/L [facility] Bilirubin [Mass/Vol] 0.5 mg/dL 0.0 - 1 .2 mg/dL [facility] Calcium [Mass/Vol] 8.6 mg/dL 8.6 - 10. 3 mg/dL [facility] Chloride [Moles/Vol] 101 mmol/L 98 - 10 7 mmol/L [facility] CO2 [Moles/Vol] 26 mmol/L 21 - 32 mmol/L [facility] Creatinine [Mass/Vol] 0.91 mg/dL 0.50 - 1.05 mg/dL [facility] GFR/1.73 sq M.predicted among non-blacks MDRD (S/P/Bld) [Vol rate/Area] 65 mL/min/{1.73_m2} - PINF [facility] Comment on above: Calculations of sean mated GFR are performed using the 2020 CKD-EPI Study Refit equation without the race variable for the IDMS-Traceable creatinine methods. https://jasn.asnjournals.org/content//ASN.91353 96206 Glucose [Mass/Vol] 142 mg/dL High 74 - 99 mg/dL [facility] Interpretation and review of laboratory results Abnormal [facility] Potassium [Moles/Vol] 3.4 mmol/L Low 3.5 - 5.3 mmol/L [facility] Protein [Mass/Vol] 6.7 g/dL 6.4 - 8.2 g/dL [facility] Sodium [Moles/Vol] 134 mmol/L Low 136 - 145 mmol/L [facility] Urea nitrogen [Mass/Vol] 20 mg/dL 6 - 23 mg/dL [facility] Albumin BCP dye [Mass/Vol] 3.7 g/dL Normal 3.4-5.0 [facility] Comment on above: Performed By: #### 2 4323-8 #### SHAHID NEVAREZ ([id number]) [facility] ([facility]) [address] [place] [id number] ALP [Catalytic activity/Vol] 123 U/L Normal 33-136 [facility] Comment on above: Performed By: #### 2 4323-8 #### SHAHID NEVAREZ ([id number]) [facility] ([facility]) [address] [place] [id number] ALT With P-5'-P [Catalytic activity/Vol] 108 U/L High 7-45 [facility] Comment on above: Result Comment: Mimi ents treated with Sulfasalazine may generate falsely decreased results for ALT. Performed By: #### 2 432-8 #### SHAHID NEVAREZ ([id number]) [facility] ([facility]) [address] [place] [address] 70090 Anion gap [Moles/Vol] 10 mmol/L Normal 10-20 [facility] Comment on above: Performed By: #### 2 4322-8 #### SHAHID NEVAREZ ([id number]) [facility] ([facility]) [address] [place] [address] 37697 AST With P-5'-P [Catalytic activity/Vol] 89 U/L High 9-39 [facility] Comment on above: Performed By: #### 2 432-8 #### SHAHID NEVAREZ ([id number]) [facility] ([facility]) [address] [place] [address] 97499 Bilirubin [Mass/Vol] 0.5 mg/dL Normal 0.0-1.2 [facility] Comment on above: Performed By: #### 2 3-8 #### SHAHID NEVAREZ ([id number]) [facility] ([facility]) [address] [place] [address] 46119 Calcium [Mass/Vol] 8.6 mg/dL Normal 8.6-10.3 [facility] Comment on above: Performed By: #### 2 4322-8 #### SHAHID NEVAREZ ([id number]) [facility] ([facility]) [address] [place] [address] Chloride [Moles/Vol] 101 mmol/L Normal 98-107 [facility] Comment on above: Performed By: #### 2 4323-8 #### SHAHID NEVAREZ ([id number]) [facility] ([facility]) [address] [place] [address] CO2 [Moles/Vol] 26 mmol/L Normal 21-32 [facility] Comment on above: Performed By: #### 2 4323-8 #### SHAHID NEVAREZ ([id number]) [facility] ([facility]) [address] [place] [address] 40280 Creatinine [Mass/Vol] 0.91 mg/dL Normal 0.50-1.05 [facility] Comment on above: Performed By: #### 2 4323-8 #### SHAHID NEVAREZ ([id number]) [facility] ([facility]) [address] [place] [address] 40238 Glomerular filtration rate/1.73 sq M.predicted 65 mL/min/1.73m*2 Normal >60 [facility] Comment on above: Result Comment: Calc ulations of estimated GFR are performed using the 2020 CKD-EPI Study Refit equation without the race variable for the IDMS-Traceable creatinine methods. https://jasn.asnjournals.org/content//ASN.70054 70501 Performed By: #### 2 4323-8 #### SHAHID NEVAREZ ([id number]) [facility] ([facility]) [address] [place] [address] Glucose [Mass/Vol] 142 mg/dL High 74-99 [facility] Comment on above: Performed By: #### 2 4323-8 #### SHAHID NEVAREZ ([id number]) [facility] ([facility]) [address] [place] [address] Potassium [Moles/Vol] 3.4 mmol/L Low 3.5-5.3 [facility] Comment on above: Performed By: #### 2 4323-8 #### SHAHID NEVAREZ ([id number]) [facility] ([facility]) [address] [place] [address] 30325 Protein [Mass/Vol] 6.7 g/dL Normal 6.4-8.2 [facility] Comment on above: Performed By: #### 2 4323-8 #### SHAHID NEVAREZ ([id number]) [facility] ([facility]) [address] [place] [address] 65074 Sodium [Moles/Vol] 134 mmol/L Low 136-145 [facility] Comment on above: Performed By: #### 2 4323-8 #### SHAHID NEVAREZ ([id number]) [facility] ([facility]) [address] [place] [address] 58611 Urea nitrogen [Mass/Vol] 20 mg/dL Normal 6-23 [facility] Comment on above: Performed By: #### 2 432-8 #### SHAHID NEVAREZ ([id number]) [facility] ([facility]) [address] [place] [address] 50126 Albumin BCP dye [Mass/Vol] 3.6 g/dL Normal 3.4-5.0 [facility] Comment on above: Performed By: #### 2 432-8 #### SHAHID NEVAREZ ([id number]) [facility] ([facility]) [address] [place] [address] 97171 ALP [Catalytic activity/Vol] 125 U/L Normal 33-136 [facility] Comment on above: Performed By: #### 2 4323-8 #### SHAHID NEVAREZ ([id number]) [facility] ([facility]) [address] [place] [address] 97861 ALT With P-5'-P [Catalytic activity/Vol] 113 U/L High 7-45 [facility] Comment on above: Result Comment: Mimi ents treated with Sulfasalazine may generate falsely decreased results for ALT. Performed By: #### 2 4323-8 #### SHAHID NEVAREZ ([id number]) [facility] ([facility]) [address] [place] [address] 86558 Anion gap [Moles/Vol] 13 mmol/L Normal 10-20 [facility] Comment on above: Performed By: #### 2 432-8 #### SHAHID NEVAREZ ([id number]) [facility] ([facility]) [address] [place] [address] 78528 AST With P-5'-P [Catalytic activity/Vol] 98 U/L High 9-39 [facility] Comment on above: Performed By: #### 2 432-8 #### SHAHID NEVAREZ ([id number]) [facility] ([facility]) [address] [place] [address] 33652 Bilirubin [Mass/Vol] 0.5 mg/dL Normal 0.0-1.2 [facility] Comment on above: Performed By: #### 2 4322-8 #### SHAHID NEVAREZ ([id number]) [facility] ([facility]) [address] [place] [address] 44156 Calcium [Mass/Vol] 8.6 mg/dL Normal 8.6-10.3 [facility] Comment on above: Performed By: #### 2 4322-8 #### SHAHID NEVAREZ ([id number]) [facility] ([facility]) [address] [place] [address] 18916 Chloride [Moles/Vol] 97 mmol/L Low 98-107 [facility] Comment on above: Performed By: #### 2 4322-8 #### SHAHID NEVAREZ ([id number]) [facility] ([facility]) [address] [place] [address] 42759 CO2 [Moles/Vol] 27 mmol/L Normal 21-32 [facility] Comment on above: Performed By: #### 2 4322-8 #### SHAHID NEVAREZ ([id number]) [facility] ([facility]) [address] [place] [address] 27256 Creatinine [Mass/Vol] 0.94 mg/dL Normal 0.50-1.05 [facility] Comment on above: Performed By: #### 2 4322-8 #### SHAHID NEVAREZ ([id number]) [facility] ([facility]) [facility] [place] [address] Glomerular filtration rate/1.73 sq M.predicted 62 mL/min/1.73m*2 Normal >60 [facility] Comment on above: Result Comment: Calc ulations of estimated GFR are performed using the 2020 CKD-EPI Study Refit equation without the race variable for the IDMS-Traceable creatinine methods. https://jasn.asnjournals.org/content/early//ASN.34180 22101 Performed By: #### 2 4323-8 #### SHAHID NEVAREZ ([id number]) [facility] ([facility]) [address] [place] [address] 44631 Glucose [Mass/Vol] 130 mg/dL High 74-99 [facility] Comment on above: Performed By: #### 2 432-8 #### SHAHID NEVAREZ ([id number]) [facility] ([facility]) [address] [place] [address] 51700 Potassium [Moles/Vol] 3.8 mmol/L Normal 3.5-5.3 [facility] Comment on above: Performed By: #### 2 4323-8 #### SHAHID NEVAREZ ([id number]) [facility] ([facility]) [address] [place] [address] 14390 Protein [Mass/Vol] 6.2 g/dL Low 6.4-8.2 [facility] Comment on above: Performed By: #### 2 4323-8 #### SHAHID NEVAREZ ([id number]) [facility] ([facility]) [address] [place] [address] 89373 Sodium [Moles/Vol] 133 mmol/L Low 136-145 [facility] Comment on above: Performed By: #### 2 4323-8 #### SHAHID NEVAREZ ([id number]) [facility] ([facility]) [address] [place] [address] 41704 Urea nitrogen [Mass/Vol] 17 mg/dL Normal 6-23 [facility] Comment on above: Performed By: #### 2 4323-8 #### SHAHID NEVAREZ ([id number]) [facility] ([facility]) [address] [place] [address] 14412 Manual differential performe d Ql (Bld)on 03-16-2024 Basophils (Bld) [#/Vol] 0.00 x10*3/uL Normal 0.00-0.10 [facility] Comment on above: Performed By: #### 5 0957-0 #### SHAHID NEVAREZ ([id number]) [facility] ([facility]) [address] [place] [address] 60131 Basophils/100 WBC (Bld) 0.0 % Normal 0.0-2.0 [facility] Comment on above: Performed By: #### 5 0957-0 #### SHAHID NEVAREZ ([id number]) [facility] ([facility]) [address] [place] [address] 34212 Cells Counted Total (Bld) [#] 100 Normal [facility] Comment on above: Performed By: #### 5 57-0 #### SHAHID NEVAREZ ([id number]) [facility] ([facility]) [address] [place] [address] 08640 Eosinophils (Bld) [#/Vol] 0.24 x10*3/uL Normal 0.00-0.40 [facility] Comment on above: Performed By: #### 5 57-0 #### SHAHID NEVAREZ ([id number]) [facility] ([facility]) [address] [place] [address] 15516 Eosinophils/100 WBC (Bld) 3.0 % Normal 0.0-6.0 [facility] Comment on above: Performed By: #### 5 57-0 #### SHAHID NEVAREZ ([id number]) [facility] ([facility]) [address] [place] [address] 10478 Giant platelets LM Ql (Bld) Few Normal [facility] Comment on above: Performed By: #### 5 0957-0 #### SHAHID NEVAREZ ([id number]) [facility] ([facility]) [address] [place] [address] 31751 Lymphocytes (Bld) [#/Vol] 2.84 x10*3/uL Normal 0.80-3.00 [facility] Comment on above: Performed By: #### 5 0957-0 #### SHAHID NEVAREZ ([id number]) [facility] ([facility]) [address] [place] [address] 63496 Lymphocytes/100 WBC (Bld) 36.0 % Normal 13.0-44.0 [facility] Comment on above: Performed By: #### 5 57-0 #### SHAHID NEVAREZ ([id number]) [facility] ([facility]) [address] [place] [address] 88850 Metamyelocytes (Bld) [#/Vol] 0.24 x10*3/uL Normal 0.00-0.00 [facility] Comment on above: Performed By: #### 5 57-0 #### SHAHID NEVAREZ ([id number]) [facility] ([facility]) [address] [place] [address] 60731 Metamyelocytes/100 WBC (Bld) 3.0 % Normal 0.0-0.0 [facility] Comment on above: Performed By: #### 5 57-0 #### SHAHID NEVAREZ ([id number]) [facility] ([facility]) [address] [place] [address] 51143 Monocytes (Bld) [#/Vol] 0.79 x10*3/uL Normal 0.05-0.80 [facility] Comment on above: Performed By: #### 5 57-0 #### SHAHID NEVAREZ ([id number]) [facility] ([facility]) [address] [place] [address] 56988 Monocytes/100 WBC (Bld) 10.0 % Normal 2.0-10.0 [facility] Comment on above: Performed By: #### 5 57-0 #### SHAHID NEVAREZ ([id number]) [facility] ([facility]) [address] [place] [address] 83030 RBC morphology finding Nom (Bld) See Below Normal [facility] Comment on above: Performed By: #### 5 57-0 #### SHAHID NEVAREZ ([id number]) [facility] ([facility]) [address] [place] [address] 36259 Schistocytes LM Ql (Bld) Few Normal [facility] Comment on above: Performed By: #### 5 0957-0 #### SHAHID NEVAREZ ([id number]) [facility] ([facility]) [address] [place] [address] 53842 Segmented neutrophils (Bld) [#/Vol] 3.79 x10*3/uL Normal 1.60-5.00 [facility] Comment on above: Performed By: #### 5 0957-0 #### SHAHID NEVAREZ ([id number]) [facility] ([facility]) [address] [place] [address] 49029 Segmented neutrophils/100 WBC (Bld) 48.0 % Normal 40.0-80.0 [facility] Comment on above: Result Comment: Perc ent differential counts (%) should be interpreted in the context of the absolute cell counts (cells/uL). Performed By: #### 5 0957-0 #### SHAHID NEVAREZ ([id number]) [facility] ([facility]) [address] [place] [address] 83624 No Panel Informationon 03-16 Extra Tube Hold for add-ons. [facility] Comment on above: Auto resulted. [facility] Pathologist review Pathologi st comment (Bld) [Interp]on 03-16-2024 PATH REVIEW-CBC DIFFERENTIAL Frequent platelet clumps. Repeat collection with including citrate tube may be of interest. Normocytic anemia with mild anisopoikilocytosis. [facility] Comment on above: Result Comment: Elec tronically signed out by Aria Rushing MD PhD on 03/19/24 at 2:12 PM. By the signature on this report, the individual or group listed as making the Final Interpretation/Diagnosis certifies that they have reviewed this case. Performed By: #### 1 4869-2 #### VALENTIN Mckeon ([id number]) [facility] ([facility]) [id number] [place] [address] 16752 RBC shape Nom (Bld)on 2023 Giant platelets LM Ql (Bld) Few [facility] RBC morphology finding Nom (Bld) See Below [facility] Schistocytes LM Ql (Bld) Few [facility] Giant platelets LM Ql (Bld) Few [facility] Comment on above: Performed By: #### 1 8225-3 #### KEY ROQUE ([id number]) [facility] ([facility]) [address] [place] [address] RBC morphology finding Nom (Bld) See Below [facility] Comment on above: Performed By: #### 1 8225-3 #### KEY WEHRLI ([id number]) [facility] ([facility]) [address] [place] [address] Schistocytes LM Ql (Bld) Few [facility] Comment on above: Performed By: #### 1 8225-3 #### KEY ROQUE ([id number]) [facility] ([facility]) [address] [place] [address] Slide RequestOrdered By: Bryan Morales on 03-16-2024 [facility] DBT Breast - bilateralon No mammographic evidence [...] information regarding high risk consultation, please call [phone]. BI-RADS CATEGORY: BI-RADS Category: 1 Negative. Recommendation: Routine Screening Mammogram in 1 Year. Recommended Date: 1 Year. Laterality: Bilateral. MACRO: None Signed by: Stephon Rendon 02/22/2024 9:27 AM Dictation workstation: [id number] [facility] Interpreted By: Stephon Rendon, STUDY: BI MAMMO BILATERAL SCREENING TOMOSYNTHESIS; 02/21/2024 1:22 pm ACCESSION NUMBER(S): [id number] ORDERING CLINICIAN: AKANKSHA MILLAN INDICATION: Screening. COMPARISON: [...] SCREENING TOMOSYNTHESIS; 02/21/2024 1:22 pm ACCESSION NUMBER(S): [id number] ORDERING CLINICIAN: AKANKSHA MILLAN INDICATION: Screening. COMPARISON: [...] information regarding high risk consultation, please call [phone]. BI-RADS CATEGORY: BI-RADS Category: 1 Negative. Recommendation: Routine Screening Mammogram in 1 Year. Recommended Date: 1 Year. Laterality: Bilateral. MACRO: None Signed by: Stephon Rendon 02/22/2024 9:27 AM Dictation workstation: [id number] [facility] Work Phone: DBT Breast - bilateralOrdere d By: Stephon Rendon on 02-22-2024 [facility] Work Phone: BI MAMMO BILATERAL SCREENING TOMOSYNTHESISon 02-21-2024 BI MAMMO BILATERAL SCREENING TOMOSYNTHESIS Interpreted By: Stephon Rendon, STUDY: BI MAMMO BILATERAL SCREENING TOMOSYNTHESIS; 02/21/2024 1:22 pm ACCESSION NUMBER(S): [id number] ORDERING CLINICIAN: AKANKSHA MILLAN INDICATION: Screening. COMPARISON: [...] information regarding high risk consultation, please call [phone]. BI-RADS CATEGORY: BI-RADS Category: 1 Negative. Recommendation: Routine Screening Mammogram in 1 Year. Recommended Date: 1 Year. Laterality: Bilateral. MACRO: None Signed by: Stephon Rendon 02/22/2024 9:27 AM Dictation workstation: [id number] [facility] DBT Breast - bilateralon Radiology Study observation (narrative) [facility] Work Phone: Absolute lymphocyte countOrd ered By: Rashid Millan on 01-10-2024 Lymphocytes Auto (Unsp spec) [#/Vol] 1.17 10*3/uL 0.83-4.51 [facility] Automated lymphocyte count a s percentage of total leukocytesOrdered By: Rashid Millan on 01-10-2024 Lymphocytes/100 WBC Auto (Unsp spec) 25.9 % 19-41 [facility] Basophil percentageOrdered B y: Rashid Millan on 01-10-2024 Basophils/100 WBC (Bld) 0.9 % 0-1 [facility] Bilirubin [Mass/Vol] 0.40 mg/dL 0.20-1.00 [facility] Comment on above: For patients on eltr ombopag therapy, use of Dimension [place] TBIL is not recommended. Chloride [Moles/Vol] 103 mmol/L 98-107 [facility] Cholesterol [Mass/Vol] 231 mg/dL <200 [facility] Comment on above: <200 mg/dL Desirable 200-240 mg/dL Borderline >240 mg/dL High Risk Eosinophils/100 WBC (Bld) 4.7 % 0-5 [facility] Glucose [Mass/Vol] 88 mg/dL 74-106 [facility] Hemoglobin (Bld) [Mass/Vol] 13.2 g/dL 12.0-15.0 [facility] Monocytes/100 WBC (Bld) 8.0 % 0-10 [facility] Neutrophils (Bld) [#/Vol] 2.7 10*3/uL 2.0-7.7 [facility] Neutrophils/100 WBC (Bld) 60.3 % 47-70 [facility] Potassium [Moles/Vol] 4.1 mmol/L 3.5-5.1 [facility] Protein [Mass/Vol] 7.7 g/dL 6.4-8.2 [facility] Sodium [Moles/Vol] 136 mmol/L 136-145 [facility] Triglyceride [Mass/Vol] 84 mg/dL <199 [facility] Comment on above: The drugs N-Acetylcy steine and Metamizole may falsely depress this assay.Serum Triglycerides Reference Interval Normal <150 mg/dL Borderline high 150 - 199 mg/dL High 200 - 499 mg/dL Very High > or = 500 mg/dL WBC (Bld) [#/Vol] 4.5 10*3/uL 4.4-11.0 [facility] Determination of erythrocyte mean corpuscular volume (MCV)Ordered By: Rashid Millan on 01-10-2024 MCV (RBC) [Entitic vol] 93.1 fL 81-99 [facility] Erythrocyte distribution wid th ratioOrdered By: Rashid Millan on 01-10-2024 Erythrocyte distribution width (RBC) [Ratio] 12.8 % 11.6-14.6 [facility] Erythrocyte distribution wid th standard deviationOrdered By: Rashid Millan on 01-10-2024 Erythrocyte distribution width (RBC) [Entitic vol] 43.8 fL 35.1-43.9 [facility] Hematocrit Auto (Bld) [Volum e fraction]Ordered By: Rashid Millan on 01-10-2024 Hematocrit (Bld) [Volume fraction] 40.7 % 37-47 [facility] Immature granulocytes/100 WB C Auto (Bld)Ordered By: Rashid Millan on 01-10-2024 Immature granulocytes/100 WBC (Bld) 0.200 % 0.0-0.9 [facility] Comment on above: IG% - Immature Granu locytes (promyelocytes, myelocytes and metamyelocytes) > 1% indicates that a LEFT SHIFT is Present. Laboratory - Chemistry and C hemistry - challengeOrdered By: Rashid Millan on 01-10-2024 Albumin/Globulin [Mass ratio] 1.1 {ratio} 0.9-2.4 [facility] ALP [Catalytic activity/Vol] 43 U/L 45-117 [facility] ALT [Catalytic activity/Vol] 45 U/L 13-56 [facility] Cholesterol in HDL [Mass/Vol] 91 mg/dL >40 [facility] Comment on above: The drugs N-Acetylcy steine and Metamizole may falsely depress this assay. Reference Range HDL <40 mg/dL Low HDL Cholesterol HDL >or= 60 mg/dL High HDL Cholesterol Cholesterol in LDL [Mass/Vol] 123 mg/dL 0-130 [facility] CO2 [Moles/Vol] 30.0 mmol/L 21.0-32.0 [facility] Cobalamin (Vitamin B12) [Mass/Vol] 781 pg/mL 211-911 [facility] Globulin (S) [Mass/Vol] 3.7 g/dL 2.2-4.2 [facility] Urea nitrogen/Creatinine [Mass ratio] 19.5 mg/mg 10-20 [facility] Laboratory - Hematology and Cell countsOrdered By: Rashid Millan on 01-10-2024 MCH (RBC) [Entitic mass] 30.2 pg 27.0-32.0 [facility] MCHC (RBC) [Mass/Vol] 32.4 g/dL 32-36 [facility] Nucleated RBC/100 WBC (Bld) [Ratio] 0 % 0-5 [facility] Platelet mean volume (Bld) [Entitic vol] 11.3 fL 6.2-12.0 [facility] Platelets (Bld) [#/Vol] 193 10*3/uL 150-450 [facility] No Panel InformationOrdered By: Rashid Millan on 01-10-2024 Estimated GFR (MDRD) Amer 76 mL/min >60 [facility] Comment on above: GFR Calc Estimated GFR (MDRD) Non-Af Amer 62 mL/min >60 [facility] Comment on above: Non- GFR Calc VLDL Cholesterol 17 mg/dL 5-40 [facility] RBC Auto (Bld) [#/Vol]Ordere d By: Rashid Millan on 01-10-2024 RBC (Bld) [#/Vol] 4.37 10*6/uL 4.2-5.4 [facility] Serum or plasma calcium koki urement (mass/volume)Ordered By: Rashid Millan on 01-10-2024 Calcium [Mass/Vol] 9.3 mg/dL 8.5-10.1 [facility] Serum or plasma creatinine m easurement (mass/volume)Ordered By: Rashid Millan on 01-10-2024 Creatinine [Mass/Vol] 0.92 mg/dL 0.55-1.02 [facility] Comment on above: The validity of the calculated GFR & GFRAA in patients over 70 years has not been determined. Clinical correlation is essential. Serum or plasma urea nitroge n measurement (mass/volume)Ordered By: Rashid Millan on 01-10-2024 Urea nitrogen [Mass/Vol] 18 mg/dL 7-18 [facility] Thin prep Papanicolaou smear with manual screeningOrdered By: Rashid Millan on 01-10-2024 Thin prep Papanicolaou smear with manual screening 4.0 g/dL 3.2-5.0 [facility] Thin prep Papanicolaou smear with manual screening 41 U/L 15-37 [facility] Thin prep Papanicolaou smear with manual screening 3 5-15 [facility] POCT UA Automated manually r esultedon 12-20-2023 Appearance (U) Clear Clear [facility] Work Phone: Glucose Test strip (U) [Mass/Vol] Negative NEGATIVE mg/dl [facility] Work Phone: [phone] Hemoglobin Ql (U) Negative NEGATIVE [facility] Work Phone: [phone] Leukocyte esterase Test strip Ql (U) Negative NEGATIVE [facility] Work Phone: [phone] Nitrite Ql (U) Negative NEGATIVE [facility] Work Phone: [phone] pH (U) 7.0 [pH] No Reference Range Established [facility] Work Phone: [phone] POC Bilirubin, Urine Negative NEGATIVE [facility] Work Phone: [phone] POC Color, Urine Yellow Straw, Yellow, Light-Yellow [facility] Work Phone: [phone] POC Ketones, Urine Negative NEGATIVE mg/dl [facility] Work Phone: [phone] POC Protein, Urine Negative NEGATIVE, 30 (1+) mg/dl [facility] Work Phone: [phone] POC Specific [place], Urine 1.010 1.005 - 1.035 [facility] Work Phone: POC Urobilinogen, Urine 0.2 0.2, 1.0 EU/DL [facility] Work Phone: [facility] Work Phone: POCT UA Automated manually r esultedOrdered By: Naomi Ardon on 12-12-2023 Appearance (U) Clear Clear [facility] Glucose Test strip (U) [Mass/Vol] Negative NEGATIVE mg/dl [facility] Hemoglobin Ql (U) LARGE (3+) Abnormal NEGATIVE [facility] Interpretation and review of laboratory results Abnormal [facility] Leukocyte esterase Test strip Ql (U) MODERATE (2+) Abnormal NEGATIVE [facility] Nitrite Ql (U) Negative NEGATIVE [facility] pH (U) 6.5 [pH] No Reference Range Established [facility] POC Bilirubin, Urine Negative NEGATIVE [facility] POC Color, Urine Yellow Straw, Yellow, Light-Yellow [facility] POC Ketones, Urine Negative NEGATIVE mg/dl [facility] POC Protein, Urine Negative NEGATIVE, 30 (1+) mg/dl [facility] POC Specific [place], Urine 1.010 1.005 - 1.035 [facility] POC Urobilinogen, Urine 0.2 0.2, 1.0 EU/DL [facility] Basophil percentageOrdered B y: Lety Marcelo on 10-18-2023 Bilirubin [Mass/Vol] 0.30 mg/dL 0.20-1.00 [facility] Comment on above: For patients on eltr ombopag therapy, use of Dimension [place] TBIL is not recommended. Chloride [Moles/Vol] 103 mmol/L 98-107 [facility] Glucose [Mass/Vol] 89 mg/dL 74-106 [facility] Potassium [Moles/Vol] 3.8 mmol/L 3.5-5.1 [facility] Protein [Mass/Vol] 7.0 g/dL 6.4-8.2 [facility] Sodium [Moles/Vol] 136 mmol/L 136-145 [facility] Laboratory - Chemistry and C hemistry - challengeOrdered By: Lety Marcelo on 10-18-2023 Albumin/Globulin [Mass ratio] 1.0 {ratio} 0.9-2.4 [facility] ALP [Catalytic activity/Vol] 51 U/L 45-117 [facility] ALT [Catalytic activity/Vol] 40 U/L 13-56 [facility] CO2 [Moles/Vol] 28.0 mmol/L 21.0-32.0 [facility] Globulin (S) [Mass/Vol] 3.5 g/dL 2.2-4.2 [facility] Urea nitrogen/Creatinine [Mass ratio] 20.7 mg/mg 10-20 [facility] No Panel InformationOrdered By: Lety Marcelo on 10-18-2023 Estimated GFR (MDRD) Amer 87 mL/min >60 [facility] Comment on above: GFR Calc Estimated GFR (MDRD) Non-Af Amer 72 mL/min >60 [facility] Comment on above: Non- GFR Calc Serum or plasma calcium koki urement (mass/volume)Ordered By: Lety Marcelo on 10-18-2023 Calcium [Mass/Vol] 8.8 mg/dL 8.5-10.1 [facility] Serum or plasma creatinine m easurement (mass/volume)Ordered By: Lety Marcelo on 10-18-2023 Creatinine [Mass/Vol] 0.82 mg/dL 0.55-1.02 [facility] Comment on above: The validity of the calculated GFR & GFRAA in patients over 70 years has not been determined. Clinical correlation is essential. Serum or plasma urea nitroge n measurement (mass/volume)Ordered By: Lety Marcelo on 10-18-2023 Urea nitrogen [Mass/Vol] 17 mg/dL 7-18 [facility] Thin prep Papanicolaou smear with manual screeningOrdered By: Lety Marcelo on 10-18-2023 Thin prep Papanicolaou smear with manual screening 3.5 g/dL 3.2-5.0 [facility] Thin prep Papanicolaou smear with manual screening 44 U/L 15-37 [facility] Thin prep Papanicolaou smear with manual screening 5 5-15 [facility] Absolute lymphocyte countOrd ered By: Lety Marcelo on 09-30-2023 Lymphocytes Auto (Unsp spec) [#/Vol] 0.76 10*3/uL 0.83-4.51 [facility] Basophil percentageOrdered B y: Lety Marcelo on 09-30-2023 Basophils/100 WBC (Bld) 0.2 % 0-1 [facility] Bilirubin [Mass/Vol] 0.30 mg/dL 0.20-1.00 [facility] Comment on above: For patients on eltr ombopag therapy, use of Dimension [place] TBIL is not recommended. Chloride [Moles/Vol] 100 mmol/L 98-107 [facility] Eosinophils/100 WBC (Bld) 0.8 % 0-5 [facility] Glucose [Mass/Vol] 102 mg/dL 74-106 [facility] Comment on above: Fasting Glucose resu lt from 100 to 125 mg/dL suggests IMPAIRED HOMEOSTASIS per A.D.A. criteria. Neutrophils (Bld) [#/Vol] 8.9 10*3/uL 2.0-7.7 [facility] Neutrophils/100 WBC (Bld) 84.5 % 47-70 [facility] Potassium [Moles/Vol] 3.8 mmol/L 3.5-5.1 [facility] Protein [Mass/Vol] 7.3 g/dL 6.4-8.2 [facility] Sodium [Moles/Vol] 134 mmol/L 136-145 [facility] WBC (Bld) [#/Vol] 10.5 10*3/uL 4.4-11.0 [facility] Blood erythrocytes count (nu mber/volume)Ordered By: Lety Marcelo on 09-30-2023 RBC (Bld) [#/Vol] 3.58 10*6/uL 4.2-5.4 [facility] Blood hemoglobin measurement (mass/volume)Ordered By: Lety Marcelo on 09-30-2023 Hemoglobin (Bld) [Mass/Vol] 11.4 g/dL 12.0-15.0 [facility] Blood lymphocytes/100 leukoc ytesOrdered By: Lety Marcelo on 09-30-2023 Lymphocytes/100 WBC (Bld) 7.3 % 19-41 [facility] Blood monocytes/100 leukocyt esOrdered By: Lety Marcelo on 09-30-2023 Monocytes/100 WBC (Bld) 6.8 % 0-10 [facility] Blood platelet mean volumeOr dered By: Lety Marcelo on 09-30-2023 Platelet mean volume (Bld) [Entitic vol] 10.1 fL 6.2-12.0 [facility] Determination of erythrocyte mean corpuscular volume (MCV)Ordered By: Lety Marcelo on 09-30-2023 MCV (RBC) [Entitic vol] 99.2 fL 81-99 [facility] Hematocrit Auto (Bld) [Volum e fraction]Ordered By: Lety Marcelo on 09-30-2023 Hematocrit (Bld) [Volume fraction] 35.5 % 37-47 [facility] Laboratory - Chemistry and C hemistry - challengeOrdered By: Lety Marcelo on 09-30-2023 ALP [Catalytic activity/Vol] 72 U/L 45-117 [facility] ALT [Catalytic activity/Vol] 61 U/L 13-56 [facility] CO2 [Moles/Vol] 29.0 mmol/L 21.0-32.0 [facility] Globulin (S) [Mass/Vol] 4.0 g/dL 2.2-4.2 [facility] Urea nitrogen/Creatinine [Mass ratio] 24.4 mg/mg 10-20 [facility] Laboratory - Hematology and Cell countsOrdered By: Letymirtha Marcelo on 09-30-2023 Erythrocyte distribution width (RBC) [Entitic vol] 48.0 fL 35.1-43.9 [facility] Erythrocyte distribution width (RBC) [Ratio] 13.3 % 11.6-14.6 [facility] Immature granulocytes/100 WBC (Bld) 0.400 % 0.0-0.9 [facility] Comment on above: IG% - Immature Granu locytes (promyelocytes, myelocytes and metamyelocytes) > 1% indicates that a LEFT SHIFT is Present. MCH (RBC) [Entitic mass] 31.8 pg 27.0-32.0 [facility] Nucleated RBC/100 WBC (Bld) [Ratio] 0 % 0-5 [facility] MCHC Auto (RBC) [Mass/Vol]Or dered By: Letymirtha Marcelo on 09-30-2023 MCHC (RBC) [Mass/Vol] 32.1 g/dL 32-36 [facility] No Panel InformationOrdered By: Letymirtha Marcelo on 09-30-2023 Estimated GFR (MDRD) Amer 82 mL/min >60 [facility] Comment on above: GFR Calc Estimated GFR (MDRD) Non-Af Amer 68 mL/min >60 [facility] Comment on above: Non- GFR Calc Platelets bldOrdered By: Yasmine Marcelo on 09-30-2023 Platelets (Bld) [#/Vol] 288 10*3/uL 150-450 [facility] Serum or plasma albumin koki urement (mass/volume)Ordered By: Lety Marcelo on 09-30-2023 Albumin [Mass/Vol] 3.3 g/dL 3.2-5.0 [facility] Serum or plasma albumin/glob ulin mass ratioOrdered By: Lety Marcelo on 09-30-2023 Albumin/Globulin [Mass ratio] 0.8 {ratio} 0.9-2.4 [facility] Serum or plasma calcium koki urement (mass/volume)Ordered By: Lety Marcelo on 09-30-2023 Calcium [Mass/Vol] 9.3 mg/dL 8.5-10.1 [facility] Serum or plasma creatinine m easurement (mass/volume)Ordered By: Lety Marcelo on 09-30-2023 Creatinine [Mass/Vol] 0.86 mg/dL 0.55-1.02 [facility] Comment on above: The validity of the calculated GFR & GFRAA in patients over 70 years has not been determined. Clinical correlation is essential. Serum or plasma urea nitroge n measurement (mass/volume)Ordered By: Lety Marcelo on 09-30-2023 Urea nitrogen [Mass/Vol] 21 mg/dL 7-18 [facility] Thin prep Papanicolaou smear with manual screeningOrdered By: Lety Marcelo on 09-30-2023 Thin prep Papanicolaou smear with manual screening 34 U/L 15-37 [facility] Thin prep Papanicolaou smear with manual screening 5 5-15 [facility] US Heart TransthoracicOrdere d By: Milan Reid on 09-06-2023 Aortic Valve Area by Continuity of Peak Velocity 2.32 [facility] Work Phone: Aortic Valve Area by Continuity of VTI 1.96 [facility] Work Phone: AV mn grad 3.0 [facility] Work Phone: AV pk grad 6.0 [facility] Work Phone: AV pk hardeep 1.22 [facility] Work Phone: LA vol index A/L 20.8 [facility] Work Phone: LV A4C EF 64.4 [facility] Work Phone: LV biplane EF 63 [facility] Work Phone: LVIDd 4.46 [facility] Work Phone: LVOT diam 1.90 [facility] Work Phone: MV E/A ratio 1.09 [facility] Work Phone: RV free wall pk S' 12.90 [facility] Work Phone: Tricuspid annular plane systolic excursion 2.3 [facility] Work Phone: [facility] Work Phone: [place] [address] [phone], TRANSTHORACIC ECHOCARDIOGRAM REPORT Patient Name: KIM De Luna Physician: [id number] Reid MD Study Date: 09/06/2023 Ordering Provider: Moe REID MRN/PID: [id number] Fellow: Nurse: Sweta Mcmahan RN Date of 1945 [employer] Operator: Tommei Marcos RDCS /Age: years Gender: F Additional Staff: Height: 167.64 cm Admit Date: Weight: 63.96 kg Admission Status: Outpatient BSA: 1.72 m2 Department [facility] Echo Lab Location: Blood Pressure: 174 /102 mmHg Study Type: TRANSTHORACIC ECHO (TTE) COMPLETE Diagnosis/ICD: Syncope-R55 CPT Codes: Echo Complete w Full Doppler-[id number] Study Detail: The following Echo studies were [...] LA Area A2C: 12.4 cm2 [place] A4C: 5.0 cm [place] A2C: 4.6 cm LA Volume Index: 23.5 [...] TAPSE: 22.7 mm RV s' 0.13 m/s [id number] Milan Reid MD Electronically signed on 09/06/2023 at 12:43:19 PM Final Milan Angela MD - 09/06/2023 [place] [address] [phone], TRANSTHORACIC ECHOCARDIOGRAM REPORT Patient Name: KIM ROCHA Reading Physician: [id number] Reid MD Study Date: 09/06/2023 Ordering Provider: [id number] MILAN REID MRN/PID: [id number] Fellow: Nurse: Sweta Mcmahan RN Date of 1945 [employer] Operator: Tommie Marcos RDCS /Age: years Gender: F Additional Staff: Height: 167.64 cm Admit Date: Weight: 63.96 kg Admission Status: Outpatient BSA: 1.72 m2 Department [facility] Echo Lab Location: Blood Pressure: 174 /102 mmHg Study Type: TRANSTHORACIC ECHO (TTE) COMPLETE Diagnosis/ICD: Syncope-R55 CPT Codes: Echo Complete w Full Doppler-[id number] Study Detail: The following Echo studies were [...] LA Area A2C: 12.4 cm2 [place] A4C: 5.0 cm [place] A2C: 4.6 cm LA Volume Index: 23.5 [...] TAPSE: 22.7 mm RV s' 0.13 m/s [id number] Milan Reid MD Electronically signed on 09/06/2023 at 12:43:19 PM Final [facility] Work Phone: ECG 12 lead (Clinic Performe d)on 08-25-2023 EKG shows sinus bradycardia, normal QTc, heart rate [address]-T segment changes [facility] Work Phone: Absolute lymphocyte countOrd ered By: Lety Marcelo on 06-30-2023 Lymphocytes Auto (Unsp spec) [#/Vol] 1.04 10*3/uL 0.83-4.51 [facility] Basophil percentageOrdered B y: Lety Marcelo on 06-30-2023 Basophils/100 WBC (Bld) 0.7 % 0-1 [facility] Bilirubin [Mass/Vol] 0.50 mg/dL 0.20-1.00 [facility] Comment on above: For patients on eltr ombopag therapy, use of Dimension [place] TBIL is not recommended. Chloride [Moles/Vol] 104 mmol/L 98-107 [facility] Eosinophils/100 WBC (Bld) 3.2 % 0-5 [facility] Glucose [Mass/Vol] 81 mg/dL 74-106 [facility] Neutrophils (Bld) [#/Vol] 2.7 10*3/uL 2.0-7.7 [facility] Neutrophils/100 WBC (Bld) 61.7 % 47-70 [facility] Potassium [Moles/Vol] 4.1 mmol/L 3.5-5.1 [facility] Protein [Mass/Vol] 7.2 g/dL 6.4-8.2 [facility] Sodium [Moles/Vol] 137 mmol/L 136-145 [facility] WBC (Bld) [#/Vol] 4.4 10*3/uL 4.4-11.0 [facility] Blood erythrocytes count (nu mber/volume)Ordered By: Lety Marcelo on 06-30-2023 RBC (Bld) [#/Vol] 3.73 10*6/uL 4.2-5.4 [facility] Blood hemoglobin measurement (mass/volume)Ordered By: Lety Marcelo on 06-30-2023 Hemoglobin (Bld) [Mass/Vol] 12.0 g/dL 12.0-15.0 [facility] Blood lymphocytes/100 leukoc ytesOrdered By: Lety Marcelo on 06-30-2023 Lymphocytes/100 WBC (Bld) 23.9 % 19-41 [facility] Blood monocytes/100 leukocyt esOrdered By: Lety Marcelo on 06-30-2023 Monocytes/100 WBC (Bld) 10.3 % 0-10 [facility] Blood platelet mean volumeOr dered By: Lety Marcelo on 06-30-2023 Platelet mean volume (Bld) [Entitic vol] 11.2 fL 6.2-12.0 [facility] Determination of erythrocyte mean corpuscular volume (MCV)Ordered By: Lety Marcelo on 06-30-2023 MCV (RBC) [Entitic vol] 100.3 fL 81-99 [facility] Hematocrit Auto (Bld) [Volum e fraction]Ordered By: Lety Marcelo on 06-30-2023 Hematocrit (Bld) [Volume fraction] 37.4 % 37-47 [facility] Laboratory - Chemistry and C hemistry - challengeOrdered By: Lety Marcelo on 06-30-2023 ALP [Catalytic activity/Vol] 38 U/L 45-117 [facility] ALT [Catalytic activity/Vol] 43 U/L 13-56 [facility] CO2 [Moles/Vol] 30.0 mmol/L 21.0-32.0 [facility] Globulin (S) [Mass/Vol] 3.4 g/dL 2.2-4.2 [facility] Urea nitrogen/Creatinine [Mass ratio] 23.2 mg/mg 10-20 [facility] Laboratory - Hematology and Cell countsOrdered By: Lety Marcelo on 06-30-2023 Erythrocyte distribution width (RBC) [Entitic vol] 48.6 fL 35.1-43.9 [facility] Erythrocyte distribution width (RBC) [Ratio] 13.3 % 11.6-14.6 [facility] Immature granulocytes/100 WBC (Bld) 0.200 % 0.0-0.9 [facility] Comment on above: IG% - Immature Granu locytes (promyelocytes, myelocytes and metamyelocytes) > 1% indicates that a LEFT SHIFT is Present. MCH (RBC) [Entitic mass] 32.2 pg 27.0-32.0 [facility] Nucleated RBC/100 WBC (Bld) [Ratio] 0 % 0-5 [facility] MCHC Auto (RBC) [Mass/Vol]Or dered By: Lety Marcelo on 06-30-2023 MCHC (RBC) [Mass/Vol] 32.1 g/dL 32-36 [facility] No Panel InformationOrdered By: Lety Marcelo on 06-30-2023 Estimated GFR (MDRD) Amer 70 mL/min >60 [facility] Comment on above: GFR Calc Estimated GFR (MDRD) Non-Af Amer 57 mL/min >60 [facility] Comment on above: Non- GFR Calc Platelets bldOrdered By: Yasmine Marcelo on 06-30-2023 Platelets (Bld) [#/Vol] 189 10*3/uL 150-450 [facility] Serum or plasma albumin koki urement (mass/volume)Ordered By: Lety Marcelo on 06-30-2023 Albumin [Mass/Vol] 3.8 g/dL 3.2-5.0 [facility] Serum or plasma albumin/glob ulin mass ratioOrdered By: Lety Marcelo on 06-30-2023 Albumin/Globulin [Mass ratio] 1.1 {ratio} 0.9-2.4 [facility] Serum or plasma calcium koki urement (mass/volume)Ordered By: Lety Marcelo on 06-30-2023 Calcium [Mass/Vol] 9.2 mg/dL 8.5-10.1 [facility] Serum or plasma creatinine m easurement (mass/volume)Ordered By: Lety Marcelo on 06-30-2023 Creatinine [Mass/Vol] 0.99 mg/dL 0.55-1.02 [facility] Comment on above: The validity of the calculated GFR & GFRAA in patients over 70 years has not been determined. Clinical correlation is essential. Serum or plasma urea nitroge n measurement (mass/volume)Ordered By: Lety Marcelo on 06-30-2023 Urea nitrogen [Mass/Vol] 23 mg/dL 7-18 [facility] Thin prep Papanicolaou smear with manual screeningOrdered By: Lety Marcelo on 06-30-2023 Thin prep Papanicolaou smear with manual screening 38 U/L 15-37 [facility] Thin prep Papanicolaou smear with manual screening 3 5-15 [facility] Absolute lymphocyte countOrd ered By: Lety Marcelo on 04-28-2023 Lymphocytes Auto (Unsp spec) [#/Vol] 1.10 10*3/uL 0.83-4.51 [facility] Basophil percentageOrdered B y: Lety Marcelo on 04-28-2023 Basophils/100 WBC (Bld) 0.5 % 0-1 [facility] Bilirubin [Mass/Vol] 0.50 mg/dL 0.20-1.00 [facility] Comment on above: For patients on eltr ombopag therapy, use of Dimension [place] TBIL is not recommended. Chloride [Moles/Vol] 102 mmol/L 98-107 [facility] Eosinophils/100 WBC (Bld) 4.3 % 0-5 [facility] Glucose [Mass/Vol] 75 mg/dL 74-106 [facility] Neutrophils (Bld) [#/Vol] 2.4 10*3/uL 2.0-7.7 [facility] Neutrophils/100 WBC (Bld) 57.8 % 47-70 [facility] Potassium [Moles/Vol] 3.8 mmol/L 3.5-5.1 [facility] Protein [Mass/Vol] 7.3 g/dL 6.4-8.2 [facility] Sodium [Moles/Vol] 135 mmol/L 136-145 [facility] WBC (Bld) [#/Vol] 4.1 10*3/uL 4.4-11.0 [facility] Blood erythrocytes count (nu mber/volume)Ordered By: Lety Marcelo on 04-28-2023 RBC (Bld) [#/Vol] 3.77 10*6/uL 4.2-5.4 [facility] Blood hemoglobin measurement (mass/volume)Ordered By: Lety Marcelo on 04-28-2023 Hemoglobin (Bld) [Mass/Vol] 12.3 g/dL 12.0-15.0 [facility] Blood lymphocytes/100 leukoc ytesOrdered By: Lety Marcelo on 04-28-2023 Lymphocytes/100 WBC (Bld) 26.6 % 19-41 [facility] Blood monocytes/100 leukocyt esOrdered By: Lety Marcelo on 04-28-2023 Monocytes/100 WBC (Bld) 10.6 % 0-10 [facility] Blood platelet mean volumeOr dered By: Lety Marcelo on 04-28-2023 Platelet mean volume (Bld) [Entitic vol] 10.5 fL 6.2-12.0 [facility] Determination of erythrocyte mean corpuscular volume (MCV)Ordered By: Lety Marcelo on 04-28-2023 MCV (RBC) [Entitic vol] 97.3 fL 81-99 [facility] Hematocrit Auto (Bld) [Volum e fraction]Ordered By: Lety Marcelo on 04-28-2023 Hematocrit (Bld) [Volume fraction] 36.7 % 37-47 [facility] Laboratory - Chemistry and C hemistry - challengeOrdered By: Lety Marcelo on 04-28-2023 ALP [Catalytic activity/Vol] 39 U/L 45-117 [facility] ALT [Catalytic activity/Vol] 43 U/L 13-56 [facility] CO2 [Moles/Vol] 28.0 mmol/L 21.0-32.0 [facility] Globulin (S) [Mass/Vol] 3.5 g/dL 2.2-4.2 [facility] Urea nitrogen/Creatinine [Mass ratio] 18.4 mg/mg 10-20 [facility] Laboratory - Hematology and Cell countsOrdered By: Lety Marcelo on 04-28-2023 Erythrocyte distribution width (RBC) [Entitic vol] 47.8 fL 35.1-43.9 [facility] Erythrocyte distribution width (RBC) [Ratio] 13.4 % 11.6-14.6 [facility] Immature granulocytes/100 WBC (Bld) 0.200 % 0.0-0.9 [facility] Comment on above: IG% - Immature Granu locytes (promyelocytes, myelocytes and metamyelocytes) > 1% indicates that a LEFT SHIFT is Present. MCH (RBC) [Entitic mass] 32.6 pg 27.0-32.0 [facility] Nucleated RBC/100 WBC (Bld) [Ratio] 0 % 0-5 [facility] MCHC Auto (RBC) [Mass/Vol]Or dered By: Lety Marcelo on 04-28-2023 MCHC (RBC) [Mass/Vol] 33.5 g/dL 32-36 [facility] No Panel InformationOrdered By: Lety Marcelo on 04-28-2023 Estimated GFR (MDRD) Amer 81 mL/min >60 [facility] Comment on above: GFR Calc Estimated GFR (MDRD) Non-Af Amer 67 mL/min >60 [facility] Comment on above: Non- GFR Calc Platelets bldOrdered By: Yasmine Marcelo on 04-28-2023 Platelets (Bld) [#/Vol] 181 10*3/uL 150-450 [facility] Serum or plasma albumin koki urement (mass/volume)Ordered By: Lety Marcelo on 04-28-2023 Albumin [Mass/Vol] 3.8 g/dL 3.2-5.0 [facility] Serum or plasma albumin/glob ulin mass ratioOrdered By: Lety Marcelo on 04-28-2023 Albumin/Globulin [Mass ratio] 1.1 {ratio} 0.9-2.4 [facility] Serum or plasma calcium koki urement (mass/volume)Ordered By: Lety Marcelo on 04-28-2023 Calcium [Mass/Vol] 9.1 mg/dL 8.5-10.1 [facility] Serum or plasma creatinine m easurement (mass/volume)Ordered By: Lety Marcelo on 04-28-2023 Creatinine [Mass/Vol] 0.87 mg/dL 0.55-1.02 [facility] Comment on above: The validity of the calculated GFR & GFRAA in patients over 70 years has not been determined. Clinical correlation is essential. Serum or plasma urea nitroge n measurement (mass/volume)Ordered By: Lety Marcelo on 04-28-2023 Urea nitrogen [Mass/Vol] 16 mg/dL 7-18 [facility] Thin prep Papanicolaou smear with manual screeningOrdered By: Lety Marcelo on 04-28-2023 Thin prep Papanicolaou smear with manual screening 41 U/L 15-37 [facility] Thin prep Papanicolaou smear with manual screening 5 5-15 [facility] Basophil percentageOrdered B y: Dr. Marcelo on 03-04-2023 Bilirubin [Mass/Vol] 0.60 mg/dL 0.20-1.00 [facility] Comment on above: For patients on eltr ombopag therapy, use of Dimension [place] TBIL is not recommended. Chloride [Moles/Vol] 104 mmol/L 98-107 [facility] Glucose [Mass/Vol] 89 mg/dL 74-106 [facility] Potassium [Moles/Vol] 4.0 mmol/L 3.5-5.1 [facility] Protein [Mass/Vol] 7.4 g/dL 6.4-8.2 [facility] Sodium [Moles/Vol] 138 mmol/L 136-145 [facility] Laboratory - Chemistry and C hemistry - challengeOrdered By: Dr. Marcelo on 03-04-2023 ALP [Catalytic activity/Vol] 43 U/L 45-117 [facility] ALT [Catalytic activity/Vol] 41 U/L 13-56 [facility] CO2 [Moles/Vol] 28.0 mmol/L 21.0-32.0 [facility] Globulin (S) [Mass/Vol] 3.7 g/dL 2.2-4.2 [facility] Urea nitrogen/Creatinine [Mass ratio] 19.1 mg/mg 10-20 [facility] No Panel InformationOrdered By: Dr. Marcelo on 03-04-2023 Estimated GFR (MDRD) Amer 79 mL/min >60 [facility] Comment on above: GFR Calc Estimated GFR (MDRD) Non-Af Amer 65 mL/min >60 [facility] Comment on above: Non- GFR Calc Serum or plasma albumin koki urement (mass/volume)Ordered By: Dr. Marcelo on 03-04-2023 Albumin [Mass/Vol] 3.7 g/dL 3.2-5.0 [facility] Serum or plasma albumin/glob ulin mass ratioOrdered By: Dr. Marcelo on 03-04-2023 Albumin/Globulin [Mass ratio] 1.0 {ratio} 0.9-2.4 [facility] Serum or plasma calcium kkoi urement (mass/volume)Ordered By: Dr. Marcelo on 03-04-2023 Calcium [Mass/Vol] 9.5 mg/dL 8.5-10.1 [facility] Serum or plasma creatinine m easurement (mass/volume)Ordered By: Dr. Marceol on 03-04-2023 Creatinine [Mass/Vol] 0.89 mg/dL 0.55-1.02 [facility] Comment on above: The validity of the calculated GFR & GFRAA in patients over 70 years has not been determined. Clinical correlation is essential. Serum or plasma urea nitroge n measurement (mass/volume)Ordered By: Dr. Marcelo on 03-04-2023 Urea nitrogen [Mass/Vol] 17 mg/dL 7-18 [facility] Thin prep Papanicolaou smear with manual screeningOrdered By: Dr. Marcelo on 03-04-2023 Thin prep Papanicolaou smear with manual screening 39 U/L 15-37 [facility] Thin prep Papanicolaou smear with manual screening 6 5-15 [facility] Absolute lymphocyte countOrd ered By: Dr. Marcelo on 02-25-2023 Lymphocytes Auto (Unsp spec) [#/Vol] 1.12 10*3/uL 0.83-4.51 [facility] Basophil percentageOrdered B y: Dr. Marcelo on 02-25-2023 Basophils/100 WBC (Bld) 0.8 % 0-1 [facility] Eosinophils/100 WBC (Bld) 4.9 % 0-5 [facility] Neutrophils (Bld) [#/Vol] 2.2 10*3/uL 2.0-7.7 [facility] Neutrophils/100 WBC (Bld) 57.0 % 47-70 [facility] WBC (Bld) [#/Vol] 3.9 10*3/uL 4.4-11.0 [facility] Blood erythrocytes count (nu mber/volume)Ordered By: Dr. Marcelo on 02-25-2023 RBC (Bld) [#/Vol] 3.93 10*6/uL 4.2-5.4 [facility] Blood hemoglobin measurement (mass/volume)Ordered By: Dr. Marcelo on 02-25-2023 Hemoglobin (Bld) [Mass/Vol] 12.4 g/dL 12.0-15.0 [facility] Blood lymphocytes/100 leukoc ytesOrdered By: Dr. Marcelo on 02-25-2023 Lymphocytes/100 WBC (Bld) 28.8 % 19-41 [facility] Blood monocytes/100 leukocyt esOrdered By: Dr. Marcelo on 02-25-2023 Monocytes/100 WBC (Bld) 8.2 % 0-10 [facility] Blood platelet mean volumeOr dered By: Dr. Marcelo on 02-25-2023 Platelet mean volume (Bld) [Entitic vol] 10.5 fL 6.2-12.0 [facility] Determination of erythrocyte mean corpuscular volume (MCV)Ordered By: Dr. Marcelo on 02-25-2023 MCV (RBC) [Entitic vol] 98.0 fL 81-99 [facility] Hematocrit Auto (Bld) [Volum e fraction]Ordered By: Dr. Marcelo on 02-25-2023 Hematocrit (Bld) [Volume fraction] 38.5 % 37-47 [facility] Laboratory - Hematology and Cell countsOrdered By: Dr. Marcelo on 02-25-2023 Erythrocyte distribution width (RBC) [Entitic vol] 47.5 fL 35.1-43.9 [facility] Erythrocyte distribution width (RBC) [Ratio] 13.2 % 11.6-14.6 [facility] Immature granulocytes/100 WBC (Bld) 0.300 % 0.0-0.9 [facility] Comment on above: IG% - Immature Granu locytes (promyelocytes, myelocytes and metamyelocytes) > 1% indicates that a LEFT SHIFT is Present. MCH (RBC) [Entitic mass] 31.6 pg 27.0-32.0 [facility] Nucleated RBC/100 WBC (Bld) [Ratio] 0 % 0-5 [facility] MCHC Auto (RBC) [Mass/Vol]Or dered By: Dr. Marcelo on 02-25-2023 MCHC (RBC) [Mass/Vol] 32.2 g/dL 32-36 [facility] Platelets bldOrdered By: Dr. Marcelo on 02-25-2023 Platelets (Bld) [#/Vol] 204 10*3/uL 150-450 [facility] DIGITAL MAMM SCREENING W/ TO Pierce 02-18-2023 DIGITAL MAMM SCREENING W/ GABRIELA Patient Name: KIM ROCHA STUDY: Digital mammography screening with gabriela; 02/18/2023 11:07 am ACCESSION NUMBER(S): [id number] ORDERING CLINICIAN: AKANKSHA MILLAN INDICATION: Screening. COMPARISON: [...] Screening. Electronically signed by: STEPHON RENDON MD [facility] Absolute lymphocyte countOrd ered By: Dr. Millan on 12-23-2022 Lymphocytes Auto (Unsp spec) [#/Vol] 0.84 10*3/uL 0.83-4.51 [facility] Basophil percentageOrdered B y: Dr. Millan on 12-23-2022 Basophils/100 WBC (Bld) 0.8 % 0-1 [facility] Bilirubin [Mass/Vol] 0.40 mg/dL 0.20-1.00 [facility] Comment on above: For patients on eltr ombopag therapy, use of Dimension [place] TBIL is not recommended. Chloride [Moles/Vol] 101 mmol/L 98-107 [facility] Cholesterol [Mass/Vol] 202 mg/dL <200 [facility] Comment on above: <200 mg/dL Desirable 200-240 mg/dL Borderline >240 mg/dL High Risk Eosinophils/100 WBC (Bld) 4.1 % 0-5 [facility] Glucose [Mass/Vol] 87 mg/dL 74-106 [facility] Neutrophils (Bld) [#/Vol] 2.5 10*3/uL 2.0-7.7 [facility] Neutrophils/100 WBC (Bld) 64.5 % 47-70 [facility] Potassium [Moles/Vol] 4.0 mmol/L 3.5-5.1 [facility] Protein [Mass/Vol] 7.4 g/dL 6.4-8.2 [facility] Sodium [Moles/Vol] 135 mmol/L 136-145 [facility] Triglyceride [Mass/Vol] 84 mg/dL <199 [facility] Comment on above: The drugs N-Acetylcy steine and Metamizole may falsely depress this assay.Serum Triglycerides Reference Interval Normal <150 mg/dL Borderline high 150 - 199 mg/dL High 200 - 499 mg/dL Very High > or = 500 mg/dL WBC (Bld) [#/Vol] 3.9 10*3/uL 4.4-11.0 [facility] Blood erythrocytes count (nu mber/volume)Ordered By: Dr. Millan on 12-23-2022 RBC (Bld) [#/Vol] 4.10 10*6/uL 4.2-5.4 [facility] Blood hemoglobin measurement (mass/volume)Ordered By: Dr. Millan on 12-23-2022 Hemoglobin (Bld) [Mass/Vol] 13.2 g/dL 12.0-15.0 [facility] Blood lymphocytes/100 leukoc ytesOrdered By: Dr. Millan on 12-23-2022 Lymphocytes/100 WBC (Bld) 21.4 % 19-41 [facility] Blood monocytes/100 leukocyt esOrdered By: Dr. Millan on 12-23-2022 Monocytes/100 WBC (Bld) 8.7 % 0-10 [facility] Blood platelet mean volumeOr dered By: Dr. Millan on 12-23-2022 Platelet mean volume (Bld) [Entitic vol] 10.4 fL 6.2-12.0 [facility] Determination of erythrocyte mean corpuscular volume (MCV)Ordered By: Dr. Millan on 12-23-2022 MCV (RBC) [Entitic vol] 98.0 fL 81-99 [facility] Hematocrit Auto (Bld) [Volum e fraction]Ordered By: Dr. Millan on 12-23-2022 Hematocrit (Bld) [Volume fraction] 40.2 % 37-47 [facility] Laboratory - Chemistry and C hemistry - challengeOrdered By: Dr. Millan on 12-23-2022 ALP [Catalytic activity/Vol] 45 U/L 45-117 [facility] ALT [Catalytic activity/Vol] 45 U/L 13-56 [facility] CO2 [Moles/Vol] 27.0 mmol/L 21.0-32.0 [facility] Cobalamin (Vitamin B12) [Mass/Vol] 608 pg/mL 211-911 [facility] Globulin (S) [Mass/Vol] 3.5 g/dL 2.2-4.2 [facility] Urea nitrogen/Creatinine [Mass ratio] 19.4 mg/mg 10-20 [facility] Laboratory - Hematology and Cell countsOrdered By: Dr. Millan on 12-23-2022 Erythrocyte distribution width (RBC) [Entitic vol] 47.5 fL 35.1-43.9 [facility] Erythrocyte distribution width (RBC) [Ratio] 13.3 % 11.6-14.6 [facility] Immature granulocytes/100 WBC (Bld) 0.500 % 0.0-0.9 [facility] Comment on above: IG% - Immature Granu locytes (promyelocytes, myelocytes and metamyelocytes) > 1% indicates that a LEFT SHIFT is Present. MCH (RBC) [Entitic mass] 32.2 pg 27.0-32.0 [facility] Nucleated RBC/100 WBC (Bld) [Ratio] 0 % 0-5 [facility] MCHC Auto (RBC) [Mass/Vol]Or dered By: Dr. Millan on 12-23-2022 MCHC (RBC) [Mass/Vol] 32.8 g/dL 32-36 [facility] No Panel InformationOrdered By: Dr. Millan on 12-23-2022 Estimated GFR (MDRD) Amer 80 mL/min >60 [facility] Comment on above: GFR Calc Estimated GFR (MDRD) Non-Af Amer 67 mL/min >60 [facility] Comment on above: Non- GFR Calc Thyroid Stimulating Hormone (TSH) 2.77 uIU/mL 0.358-3.74 [facility] Platelets bldOrdered By: Dr. Millan on 12-23-2022 Platelets (Bld) [#/Vol] 215 10*3/uL 150-450 [facility] Serum or plasma albumin koki urement (mass/volume)Ordered By: Dr. Millan on 12-23-2022 Albumin [Mass/Vol] 3.9 g/dL 3.2-5.0 [facility] Serum or plasma albumin/glob ulin mass ratioOrdered By: Dr. Millan on 12-23-2022 Albumin/Globulin [Mass ratio] 1.1 {ratio} 0.9-2.4 [facility] Serum or plasma calcium koki urement (mass/volume)Ordered By: Dr. Millan on 12-23-2022 Calcium [Mass/Vol] 9.1 mg/dL 8.5-10.1 [facility] Serum or plasma cholesterol in HDL measurement (mass/volume)Ordered By: Dr. Millan on 12-23-2022 Cholesterol in HDL [Mass/Vol] 89 mg/dL >40 [facility] Comment on above: The drugs N-Acetylcy steine and Metamizole may falsely depress this assay. Reference Range HDL <40 mg/dL Low HDL Cholesterol HDL >or= 60 mg/dL High HDL Cholesterol Serum or plasma cholesterol in VLDL measurement (mass/volume)Ordered By: Dr. Millan on 12-23-2022 Cholesterol in VLDL [Mass/Vol] 17 mg/dL 5-40 [facility] Serum or plasma creatinine m easurement (mass/volume)Ordered By: Dr. Millan on 12-23-2022 Creatinine [Mass/Vol] 0.88 mg/dL 0.55-1.02 [facility] Comment on above: The validity of the calculated GFR & GFRAA in patients over 70 years has not been determined. Clinical correlation is essential. Serum or plasma low density lipoprotein (LDL) cholesterol measurement (mass/volume)Ordered By: Dr. Millan on 12-23-2022 Cholesterol in LDL [Mass/Vol] 96 mg/dL 0-130 [facility] Serum or plasma urea nitroge n measurement (mass/volume)Ordered By: Dr. Millan on 12-23-2022 Urea nitrogen [Mass/Vol] 17 mg/dL 7-18 [facility] Thin prep Papanicolaou smear with manual screeningOrdered By: Dr. Millan on 12-23-2022 Thin prep Papanicolaou smear with manual screening 40 U/L 15-37 [facility] Thin prep Papanicolaou smear with manual screening 7 5-15 [facility] Absolute lymphocyte countOrd ered By: Dr. Marcelo on 09-29-2022 Lymphocytes Auto (Unsp spec) [#/Vol] 0.82 10*3/uL 0.83-4.51 [facility] Basophil percentageOrdered B y: Dr. Marcelo on 09-29-2022 Basophils/100 WBC (Bld) 0.6 % 0-1 [facility] Bilirubin [Mass/Vol] 0.40 mg/dL 0.20-1.00 [facility] Comment on above: For patients on eltr ombopag therapy, use of Dimension [place] TBIL is not recommended. Chloride [Moles/Vol] 103 mmol/L 98-107 [facility] Eosinophils/100 WBC (Bld) 2.5 % 0-5 [facility] Glucose [Mass/Vol] 89 mg/dL 74-106 [facility] Neutrophils (Bld) [#/Vol] 3.8 10*3/uL 2.0-7.7 [facility] Neutrophils/100 WBC (Bld) 73.2 % 47-70 [facility] Potassium [Moles/Vol] 4.1 mmol/L 3.5-5.1 [facility] Protein [Mass/Vol] 6.8 g/dL 6.4-8.2 [facility] Sodium [Moles/Vol] 137 mmol/L 136-145 [facility] WBC (Bld) [#/Vol] 5.2 10*3/uL 4.4-11.0 [facility] Blood erythrocytes count (nu mber/volume)Ordered By: Dr. Marcelo on 09-29-2022 RBC (Bld) [#/Vol] 3.71 10*6/uL 4.2-5.4 [facility] Blood hemoglobin measurement (mass/volume)Ordered By: Dr. Marcelo on 09-29-2022 Hemoglobin (Bld) [Mass/Vol] 12.0 g/dL 12.0-15.0 [facility] Blood lymphocytes/100 leukoc ytesOrdered By: Dr. Marcelo on 09-29-2022 Lymphocytes/100 WBC (Bld) 15.7 % 19-41 [facility] Blood monocytes/100 leukocyt esOrdered By: Dr. Marcelo on 09-29-2022 Monocytes/100 WBC (Bld) 7.6 % 0-10 [facility] Blood platelet mean volumeOr dered By: Dr. Marcelo on 09-29-2022 Platelet mean volume (Bld) [Entitic vol] 10.9 fL 6.2-12.0 [facility] Determination of erythrocyte mean corpuscular volume (MCV)Ordered By: Dr. Marcelo on 09-29-2022 MCV (RBC) [Entitic vol] 99.2 fL 81-99 [facility] Hematocrit Auto (Bld) [Volum e fraction]Ordered By: Dr. Marcelo on 09-29-2022 Hematocrit (Bld) [Volume fraction] 36.8 % 37-47 [facility] Laboratory - Chemistry and C hemistry - challengeOrdered By: Dr. Marcelo on 09-29-2022 ALP [Catalytic activity/Vol] 39 U/L 45-117 [facility] ALT [Catalytic activity/Vol] 43 U/L 13-56 [facility] CO2 [Moles/Vol] 28.0 mmol/L 21.0-32.0 [facility] Globulin (S) [Mass/Vol] 3.2 g/dL 2.2-4.2 [facility] Urea nitrogen/Creatinine [Mass ratio] 25.2 mg/mg 10-20 [facility] Laboratory - Hematology and Cell countsOrdered By: Dr. Marcelo on 09-29-2022 Erythrocyte distribution width (RBC) [Entitic vol] 48.5 fL 35.1-43.9 [facility] Erythrocyte distribution width (RBC) [Ratio] 13.5 % 11.6-14.6 [facility] Immature granulocytes/100 WBC (Bld) 0.400 % 0.0-0.9 [facility] Comment on above: IG% - Immature Granu locytes (promyelocytes, myelocytes and metamyelocytes) > 1% indicates that a LEFT SHIFT is Present. MCH (RBC) [Entitic mass] 32.3 pg 27.0-32.0 [facility] Nucleated RBC/100 WBC (Bld) [Ratio] 0 % 0-5 [facility] MCHC Auto (RBC) [Mass/Vol]Or dered By: Dr. Marcelo on 09-29-2022 MCHC (RBC) [Mass/Vol] 32.6 g/dL 32-36 [facility] No Panel InformationOrdered By: Dr. Marcelo on 09-29-2022 Estimated GFR (MDRD) Amer 73 mL/min >60 [facility] Comment on above: GFR Calc Estimated GFR (MDRD) Non-Af Amer 60 mL/min >60 [facility] Comment on above: Non- GFR Calc Platelets bldOrdered By: Dr. Marcelo on 09-29-2022 Platelets (Bld) [#/Vol] 190 10*3/uL 150-450 [facility] Serum or plasma albumin koki urement (mass/volume)Ordered By: Dr. Marcelo on 09-29-2022 Albumin [Mass/Vol] 3.6 g/dL 3.2-5.0 [facility] Serum or plasma albumin/glob ulin mass ratioOrdered By: Dr. Marcelo on 09-29-2022 Albumin/Globulin [Mass ratio] 1.1 {ratio} 0.9-2.4 [facility] Serum or plasma calcium koki urement (mass/volume)Ordered By: Dr. Marcelo on 09-29-2022 Calcium [Mass/Vol] 9.0 mg/dL 8.5-10.1 [facility] Serum or plasma creatinine m easurement (mass/volume)Ordered By: Dr. Marcelo on 09-29-2022 Creatinine [Mass/Vol] 0.95 mg/dL 0.55-1.02 [facility] Comment on above: The validity of the calculated GFR & GFRAA in patients over 70 years has not been determined. Clinical correlation is essential. Serum or plasma urea nitroge n measurement (mass/volume)Ordered By: Dr. Marcelo on 09-29-2022 Urea nitrogen [Mass/Vol] 24 mg/dL 7-18 [facility] Thin prep Papanicolaou smear with manual screeningOrdered By: Dr. Marcelo on 09-29-2022 Thin prep Papanicolaou smear with manual screening 34 U/L 15-37 [facility] Thin prep Papanicolaou smear with manual screening 6 5-15 [facility] Absolute lymphocyte countOrd ered By: Jyoti Hazel on 09-05-2022 Lymphocytes Auto (Unsp spec) [#/Vol] 1.15 10*3/uL 0.83-4.51 [facility] Basophil percentageOrdered B y: Jyoti Hazel on 09-05-2022 Basophils/100 WBC (Bld) 0.3 % 0-1 [facility] Chloride [Moles/Vol] 103 mmol/L 98-107 [facility] Eosinophils/100 WBC (Bld) 1.8 % 0-5 [facility] Glucose [Mass/Vol] 126 mg/dL 74-106 [facility] Comment on above: Fasting Glucose resu lt greater than or equal to 126 mg/dL suggests DIABETES MELLITUS per A.D.A. criteria. Neutrophils (Bld) [#/Vol] 4.5 10*3/uL 2.0-7.7 [facility] Neutrophils/100 WBC (Bld) 71.6 % 47-70 [facility] Potassium [Moles/Vol] 3.6 mmol/L 3.5-5.1 [facility] Sodium [Moles/Vol] 136 mmol/L 136-145 [facility] WBC (Bld) [#/Vol] 6.3 10*3/uL 4.4-11.0 [facility] Blood erythrocytes count (nu mber/volume)Ordered By: Jyoti Hazel on 09-05-2022 RBC (Bld) [#/Vol] 3.75 10*6/uL 4.2-5.4 [facility] Blood hemoglobin measurement (mass/volume)Ordered By: Jyoti Hazel on 09-05-2022 Hemoglobin (Bld) [Mass/Vol] 12.2 g/dL 12.0-15.0 [facility] Blood lymphocytes/100 leukoc ytesOrdered By: Jyoti Hazel on 09-05-2022 Lymphocytes/100 WBC (Bld) 18.3 % 19-41 [facility] Blood monocytes/100 leukocyt esOrdered By: Jyoti Hazel on 09-05-2022 Monocytes/100 WBC (Bld) 7.8 % 0-10 [facility] Blood platelet mean volumeOr dered By: Jyoti Hazel on 09-05-2022 Platelet mean volume (Bld) [Entitic vol] 10.7 fL 6.2-12.0 [facility] Determination of erythrocyte mean corpuscular volume (MCV)Ordered By: Jyoti Hazel on 09-05-2022 MCV (RBC) [Entitic vol] 96.8 fL 81-99 [facility] Hematocrit Auto (Bld) [Volum e fraction]Ordered By: Jyoti Hazel on 09-05-2022 Hematocrit (Bld) [Volume fraction] 36.3 % 37-47 [facility] Laboratory - Chemistry and C hemistry - challengeOrdered By: Jyoti Hazel on 09-05-2022 CO2 [Moles/Vol] 27.0 mmol/L 21.0-32.0 [facility] Urea nitrogen/Creatinine [Mass ratio] 31.3 mg/mg 10-20 [facility] Laboratory - Hematology and Cell countsOrdered By: Jyoti Hazel on 09-05-2022 Erythrocyte distribution width (RBC) [Entitic vol] 47.5 fL 35.1-43.9 [facility] Erythrocyte distribution width (RBC) [Ratio] 13.3 % 11.6-14.6 [facility] Immature granulocytes/100 WBC (Bld) 0.200 % 0.0-0.9 [facility] Comment on above: IG% - Immature Granu locytes (promyelocytes, myelocytes and metamyelocytes) > 1% indicates that a LEFT SHIFT is Present. MCH (RBC) [Entitic mass] 32.5 pg 27.0-32.0 [facility] Nucleated RBC/100 WBC (Bld) [Ratio] 0 % 0-5 [facility] MCHC Auto (RBC) [Mass/Vol]Or dered By: Jyoti Hazel on 09-05-2022 MCHC (RBC) [Mass/Vol] 33.6 g/dL 32-36 [facility] No Panel InformationOrdered By: Jyoti Hazel on 09-05-2022 Estimated Creatinine Clearance Calc 44.10 ml/min [facility] Estimated GFR (MDRD) Amer 94 mL/min >60 [facility] Comment on above: GFR Calc Estimated GFR (MDRD) Non-Af Amer 78 mL/min >60 [facility] Comment on above: Non- GFR Calc Platelets bldOrdered By: Digna Hazel on 09-05-2022 Platelets (Bld) [#/Vol] 198 10*3/uL 150-450 [facility] Serum or plasma calcium koki urement (mass/volume)Ordered By: Jyoti Hazel on 09-05-2022 Calcium [Mass/Vol] 8.8 mg/dL 8.5-10.1 [facility] Serum or plasma creatinine m easurement (mass/volume)Ordered By: Jyoti Hazel on 09-05-2022 Creatinine [Mass/Vol] 0.77 mg/dL 0.55-1.02 [facility] Comment on above: The validity of the calculated GFR & GFRAA in patients over 70 years has not been determined. Clinical correlation is essential. Serum or plasma urea nitroge n measurement (mass/volume)Ordered By: Jyoti Hazel on 09-05-2022 Urea nitrogen [Mass/Vol] 24 mg/dL 7-18 [facility] Thin prep Papanicolaou smear with manual screeningOrdered By: Jyoti Hazel on 09-05-2022 Thin prep Papanicolaou smear with manual screening 6 5-15 [facility] Office Visit (Cardiology)on 08-26-2022 Follow-up visit Orders Pulmonary hypertension IO EKG Electrocardiogram- 12 Lead; Status:Complete; Done: 26Aug2022 11:03AM Chief Complaint Pulm HTN History of Present [id number] female with a medical history of hyperlipidemia, [...] photopsia in visual field (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[employer]) Active Problems Problems Acute lower UTI (599.0) [...] Respiratory: Denies any asthma/wheezing Gastrointestinal: Denies any veroniac colored stools or fatty food intolerance Genitourinary: Denies any blood in the urine or pelvic pain Musculoskeletal: Denies any swelling in the joints or difficulty walking Skin: Denies any skin lumps or skin lesions Neurological: Denies any dizziness/tingling Vitals Vital Signs Recorded: 26Aug2022 11:21AM Heart Rate56 [id number] Ipfxutfxa37 Height5 ft 6 in Orrsgh112 lb 2 oz BMI Lrafyrkiug63.78 kg/m2 BSA Calculated1.72 Tobacco Useb) No Falls Screening (Age 18+)b) One or more falls in the last year O2 [id number] Physical Exam General: AANDOx3 HEENT: NC/AT; EOMI; PERRLA, external ear is normal Neck: supple; no JVD Chest: CTAB; no wheezing CVS: S1S2 normal, no murmurs Abdomen: Soft, NT/ND, no organomegaly Extremities: no cl (more content not included)... Normal [employer] Tobacco Screening.on 022 Fall risk assessment b) One or more fall s in the last year [employer] Work Phone: Tobacco use status CP b) No [employer] Work Phone: Established Visit (Gastroent erology)on 08-12-2022 [...] TabletTAKE 1 TABLET TWICE DAILY. Multi-Vitamins TABS [employer] Oral CapsuleUSE DIRECTED. Plaquenil 200 MG Oral TabletTake 1 tablet twice daily predniSONE 10 MG Oral TabletTAKE 1 TABLET Daily PRN FLARES Vitamin B-6 100 MG Oral Tablet Vitamin E 400 UNIT Oral Tablet Vitals Vital Signs Recorded: 12Aug2022 10:07AM Yergsqup312 Sqsaciknk31 Height5 ft 6 in Ywewlj773 lb 6 oz BMI Ywnnkesvnt19.82 kg/m2 BSA Calculated1.73 Physical Exam Constitutional General appearance: In no acute distress . Eyes Anicteric Sclerae . Pulmonary Auscultation of lungs: Clear. Cardiovascular Auscultation of heart: RRR without murmur. Examination of extremities for edema: Normal. Abdomen Soft, non-tender. Bowel sounds normal. No hepatomegaly or splenomegaly. Signatures Electronicall (more content not included)... Normal [employer] Established Visit (Gastroent erology)on 05-13-2022 Established Visit [...] MG Oral (more content not included)... Normal [employer] Absolute lymphocyte counton 03-31-2022 Lymphocytes Auto (Unsp spec) [#/Vol] 0.87 10*3/uL 0.83-4.51 [facility] Work Phone: Basophil percentageon 2021 Basophils/100 WBC (Bld) 0.7 % 0-1 [facility] Work Phone: Bilirubin [Mass/Vol] 0.40 mg/dL 0.20-1.00 [facility] Work Phone: Comment on above: For patients on eltr ombopag therapy, use of Dimension [place] TBIL is not recommended. Chloride [Moles/Vol] 105 mmol/L 98-107 [facility] Work Phone: Eosinophils/100 WBC (Bld) 4.4 % 0-5 [facility] Work Phone: Glucose [Mass/Vol] 101 mg/dL 74-106 [facility] Work Phone: Comment on above: Fasting Glucose resu lt from 100 to 125 mg/dL suggests IMPAIRED HOMEOSTASIS per A.D.A. criteria. Neutrophils (Bld) [#/Vol] 2.8 10*3/uL 2.0-7.7 [facility] Work Phone: Neutrophils/100 WBC (Bld) 65.8 % 47-70 [facility] Work Phone: Potassium [Moles/Vol] 3.8 mmol/L 3.5-5.1 [facility] Work Phone: Protein [Mass/Vol] 7.3 g/dL 6.4-8.2 [facility] Work Phone: Sodium [Moles/Vol] 139 mmol/L 136-145 [facility] Work Phone: [phone] WBC (Bld) [#/Vol] 4.3 10*3/uL 4.4-11.0 [facility] Work Phone: Blood erythrocytes count (nu mber/volume)on 03-31-2022 RBC (Bld) [#/Vol] 3.86 10*6/uL 4.2-5.4 [facility] Work Phone: Blood hemoglobin measurement (mass/volume)on 03-31-2022 Hemoglobin (Bld) [Mass/Vol] 12.4 g/dL 12.0-15.0 [facility] Work Phone: Blood lymphocytes/100 leukoc yteson 03-31-2022 Lymphocytes/100 WBC (Bld) 20.1 % 19-41 [facility] Work Phone: Blood monocytes/100 leukocyt eson 03-31-2022 Monocytes/100 WBC (Bld) 8.8 % 0-10 [facility] Work Phone: Blood platelet mean volumeon 03-31-2022 Platelet mean volume (Bld) [Entitic vol] 10.9 fL 6.2-12.0 [facility] Work Phone: Determination of erythrocyte mean corpuscular volume (MCV)on 03-31-2022 MCV (RBC) [Entitic vol] 98.2 fL 81-99 [facility] Work Phone: Hematocrit Auto (Bld) [Volum e fraction]on 03-31-2022 Hematocrit (Bld) [Volume fraction] 37.9 % 37-47 [facility] Work Phone: Laboratory - Chemistry and C hemistry - challengeon 03-31-2022 ALP [Catalytic activity/Vol] 41 U/L 45-117 [facility] Work Phone: ALT [Catalytic activity/Vol] 42 U/L 13-56 [facility] Work Phone: CO2 [Moles/Vol] 30.0 mmol/L 21.0-32.0 [facility] Work Phone: Globulin (S) [Mass/Vol] 3.5 g/dL 2.2-4.2 [facility] Work Phone: Urea nitrogen/Creatinine [Mass ratio] 25.0 mg/mg 10-20 [facility] Work Phone: Laboratory - Hematology and Cell countson 03-31-2022 Erythrocyte distribution width (RBC) [Entitic vol] 49.6 fL 35.1-43.9 [facility] Work Phone: Erythrocyte distribution width (RBC) [Ratio] 13.8 % 11.6-14.6 [facility] Work Phone: Immature granulocytes/100 WBC (Bld) 0.200 % 0.0-0.9 [facility] Work Phone: Comment on above: IG% - Immature Granu locytes (promyelocytes, myelocytes and metamyelocytes) > 1% indicates that a LEFT SHIFT is Present. MCH (RBC) [Entitic mass] 32.1 pg 27.0-32.0 [facility] Work Phone: Nucleated RBC/100 WBC (Bld) [Ratio] 0 % 0-5 [facility] Work Phone: MCHC Auto (RBC) [Mass/Vol]on 03-31-2022 MCHC (RBC) [Mass/Vol] 32.7 g/dL 32-36 [facility] Work Phone: No Panel Informationon 03-31 Estimated GFR (MDRD) Amer 66 mL/min >60 [facility] Work Phone: Comment on above: GFR Calc Estimated GFR (MDRD) Non-Af Amer 55 mL/min >60 [facility] Work Phone: Comment on above: Non- GFR Calc Platelets bldon 03-31-2022 Platelets (Bld) [#/Vol] 183 10*3/uL 150-450 [facility] Work Phone: Serum or plasma albumin koki urement (mass/volume)on 03-31-2022 Albumin [Mass/Vol] 3.8 g/dL 3.2-5.0 [facility] Work Phone: Serum or plasma albumin/glob ulin mass ratioon 03-31-2022 Albumin/Globulin [Mass ratio] 1.1 {ratio} 0.9-2.4 [facility] Work Phone: Serum or plasma calcium koki urement (mass/volume)on 03-31-2022 Calcium [Mass/Vol] 9.4 mg/dL 8.5-10.1 [facility] Work Phone: Serum or plasma creatinine m easurement (mass/volume)on 03-31-2022 Creatinine [Mass/Vol] 1.04 mg/dL 0.55-1.02 [facility] Work Phone: Comment on above: The validity of the calculated GFR & GFRAA in patients over 70 years has not been determined. Clinical correlation is essential. Serum or plasma urea nitroge n measurement (mass/volume)on 03-31-2022 Urea nitrogen [Mass/Vol] 26 mg/dL 7-18 [facility] Work Phone: Thin prep Papanicolaou smear with manual screeningon 03-31-2022 Thin prep Papanicolaou smear with manual screening 35 U/L 15-37 [facility] Work Phone: Thin prep Papanicolaou smear with manual screening 4 5-15 [facility] Work Phone: Mamm - Screening Mammogram w / Tomosynthesison 02-17-2022 MG Breast Screening Normal -[employer] [facility] Work Phone: Initial Visit (Gastroenterol [...] TabletTAKE 1 TABLET TWICE DAILY. Multi-Vitamins TABS [employer] Oral CapsuleUSE DIRECTED. Plaquenil 200 MG Oral TabletTake 1 tablet twice daily predniSONE 10 MG Oral TabletTAKE 1 TABLET Daily PRN FLARES Vitamin B-6 100 MG Oral Tablet Vitamin E 400 UNIT Oral Tablet Vitals Vital Signs Recorded: [id number] 02:14PM [id number] Otowjcmfp90 Height5 ft 6 in Tzkgig653 lb BMI Pbvxlprcwx75.24 kg/m2 BSA Calculated1.74 Physical Exam Kavitha is [...] denies any rectal bleeding. Recent labs from [facility] (more content not included)... Normal [facility] Absolute lymphocyte counton 12-30-2021 Lymphocytes Auto (Unsp spec) [#/Vol] 0.83 10*3/uL 0.83-4.51 [facility] Work Phone: Basophil percentageon 2021 Basophils/100 WBC (Bld) 0.5 % 0-1 [facility] Work Phone: Bilirubin [Mass/Vol] 0.50 mg/dL 0.20-1.00 [facility] Work Phone: Comment on above: For patients on eltr ombopag therapy, use of Dimension [place] TBIL is not recommended. Chloride [Moles/Vol] 101 mmol/L 98-107 [facility] Work Phone: Cholesterol [Mass/Vol] 218 mg/dL <200 [facility] Work Phone: Comment on above: <200 mg/dL Desirable 200-240 mg/dL Borderline >240 mg/dL High Risk Eosinophils/100 WBC (Bld) 3.5 % 0-5 [facility] Work Phone: Glucose [Mass/Vol] 98 mg/dL 74-106 [facility] Work Phone: Neutrophils (Bld) [#/Vol] 4.1 10*3/uL 2.0-7.7 [facility] Work Phone: Neutrophils/100 WBC (Bld) 72.8 % 47-70 [facility] Work Phone: Potassium [Moles/Vol] 4.0 mmol/L 3.5-5.1 [facility] Work Phone: Protein [Mass/Vol] 7.7 g/dL 6.4-8.2 [facility] Work Phone: Sodium [Moles/Vol] 134 mmol/L 136-145 [facility] Work Phone: Triglyceride [Mass/Vol] 71 mg/dL <199 [facility] Work Phone: Comment on above: The drugs N-Acetylcy steine and Metamizole may falsely depress this assay.Serum Triglycerides Reference Interval Normal <150 mg/dL Borderline high 150 - 199 mg/dL High 200 - 499 mg/dL Very High > or = 500 mg/dL WBC (Bld) [#/Vol] 5.7 10*3/uL 4.4-11.0 [facility] Work Phone: Blood erythrocytes count (nu mber/volume)on 12-30-2021 RBC (Bld) [#/Vol] 4.07 10*6/uL 4.2-5.4 [facility] Work Phone: Blood hemoglobin measurement (mass/volume)on 12-30-2021 Hemoglobin (Bld) [Mass/Vol] 13.2 g/dL 12.0-15.0 [facility] Work Phone: Blood lymphocytes/100 leukoc yteson 12-30-2021 Lymphocytes/100 WBC (Bld) 14.7 % 19-41 [facility] Work Phone: Blood monocytes/100 leukocyt eson 12-30-2021 Monocytes/100 WBC (Bld) 8.3 % 0-10 [facility] Work Phone: Blood platelet mean volumeon 12-30-2021 Platelet mean volume (Bld) [Entitic vol] 10.6 fL 6.2-12.0 [facility] Work Phone: Determination of erythrocyte mean corpuscular volume (MCV)on 12-30-2021 MCV (RBC) [Entitic vol] 98.0 fL 81-99 [facility] Work Phone: Hematocrit Auto (Bld) [Volum e fraction]on 12-30-2021 Hematocrit (Bld) [Volume fraction] 39.9 % 37-47 [facility] Work Phone: Laboratory - Chemistry and C hemistry - challengeon 12-30-2021 ALP [Catalytic activity/Vol] 45 U/L 45-117 [facility] Work Phone: ALT [Catalytic activity/Vol] 40 U/L 13-56 [facility] Work Phone: CO2 [Moles/Vol] 31.0 mmol/L 21.0-32.0 [facility] Work Phone: [phone] Cobalamin (Vitamin B12) [Mass/Vol] 679 pg/mL 211-911 [facility] Work Phone: [phone] Globulin (S) [Mass/Vol] 3.6 g/dL 2.2-4.2 [facility] Work Phone: Urea nitrogen/Creatinine [Mass ratio] 22.1 mg/mg 10-20 [facility] Work Phone: Laboratory - Hematology and Cell countson 12-30-2021 Erythrocyte distribution width (RBC) [Entitic vol] 47.5 fL 35.1-43.9 [facility] Work Phone: Erythrocyte distribution width (RBC) [Ratio] 13.3 % 11.6-14.6 [facility] Work Phone: Immature granulocytes/100 WBC (Bld) 0.200 % 0.0-0.9 [facility] Work Phone: [phone] Comment on above: IG% - Immature Granu locytes (promyelocytes, myelocytes and metamyelocytes) > 1% indicates that a LEFT SHIFT is Present. MCH (RBC) [Entitic mass] 32.4 pg 27.0-32.0 [facility] Work Phone: [phone] Nucleated RBC/100 WBC (Bld) [Ratio] 0 % 0-5 [facility] Work Phone: MCHC Auto (RBC) [Mass/Vol]on 12-30-2021 MCHC (RBC) [Mass/Vol] 33.1 g/dL 32-36 [facility] Work Phone: No Panel Informationon 12-30 Estimated GFR (MDRD) Amer 83 mL/min >60 [facility] Work Phone: Comment on above: GFR Calc Estimated GFR (MDRD) Non-Af Amer 68 mL/min >60 [facility] Work Phone: Comment on above: Non- GFR Calc Platelets bldon 12-30-2021 Platelets (Bld) [#/Vol] 203 10*3/uL 150-450 [facility] Work Phone: Serum or plasma albumin koki urement (mass/volume)on 12-30-2021 Albumin [Mass/Vol] 4.1 g/dL 3.2-5.0 [facility] Work Phone: Serum or plasma albumin/glob ulin mass ratioon 12-30-2021 Albumin/Globulin [Mass ratio] 1.1 {ratio} 0.9-2.4 [facility] Work Phone: Serum or plasma calcium koki urement (mass/volume)on 12-30-2021 Calcium [Mass/Vol] 9.2 mg/dL 8.5-10.1 [facility] Work Phone: Serum or plasma cholesterol in HDL measurement (mass/volume)on 12-30-2021 Cholesterol in HDL [Mass/Vol] 96 mg/dL >40 [facility] Work Phone: Comment on above: The drugs N-Acetylcy steine and Metamizole may falsely depress this assay. Reference Range HDL <40 mg/dL Low HDL Cholesterol HDL >or= 60 mg/dL High HDL Cholesterol Serum or plasma cholesterol in VLDL measurement (mass/volume)on 12-30-2021 Cholesterol in VLDL [Mass/Vol] 14 mg/dL 5-40 [facility] Work Phone: Serum or plasma creatinine m easurement (mass/volume)on 12-30-2021 Creatinine [Mass/Vol] 0.86 mg/dL 0.55-1.02 [facility] Work Phone: Comment on above: The validity of the calculated GFR & GFRAA in patients over 70 years has not been determined. Clinical correlation is essential. Serum or plasma low density lipoprotein (LDL) cholesterol measurement (mass/volume)on 12-30-2021 Cholesterol in LDL [Mass/Vol] 108 mg/dL 0-130 [facility] Work Phone: Serum or plasma urea nitroge n measurement (mass/volume)on 12-30-2021 Urea nitrogen [Mass/Vol] 19 mg/dL 7-18 [facility] Work Phone: Thin prep Papanicolaou smear with manual screeningon 12-30-2021 Thin prep Papanicolaou smear with manual screening 33 U/L 15-37 [facility] Work Phone: Thin prep Papanicolaou smear with manual screening 2 5-15 [facility] Work Phone: Medicare Annual Wellness Vis [...] of breath, dizziness, lightheadedness, or edema Sees Technical Support Specialist on a regular basis Seen Cardiology, started [...] Screening.on 022 Adult depression screening assessment Yes -[employer] [facility] Work Phone: Adult depression screening assessment No [employer] [facility] Work Phone: Fall risk assessment a) No falls within the last year [employer] [facility] Work Phone: Tobacco use status CPHS b) No [employer] [facility] Work Phone: Absolute lymphocyte counton 10-14-2021 Lymphocytes Auto (Unsp spec) [#/Vol] 0.94 10*3/uL 0.83-4.51 [facility] Work Phone: [phone] Basophil percentageon 2021 Basophils/100 WBC (Bld) 0.4 % 0-1 [facility] Work Phone: [phone] Bilirubin [Mass/Vol] 0.40 mg/dL 0.20-1.00 [facility] Work Phone: Comment on above: For patients on eltr ombopag therapy, use of Dimension [place] TBIL is not recommended. Chloride [Moles/Vol] 103 mmol/L 98-107 [facility] Work Phone: Eosinophils/100 WBC (Bld) 4.0 % 0-5 [facility] Work Phone: Glucose [Mass/Vol] 98 mg/dL 74-106 [facility] Work Phone: Neutrophils (Bld) [#/Vol] 2.9 10*3/uL 2.0-7.7 [facility] Work Phone: Neutrophils/100 WBC (Bld) 64.8 % 47-70 [facility] Work Phone: [phone] Potassium [Moles/Vol] 4.0 mmol/L 3.5-5.1 [facility] Work Phone: [phone] Protein [Mass/Vol] 7.1 g/dL 6.4-8.2 [facility] Work Phone: Sodium [Moles/Vol] 137 mmol/L 136-145 [facility]: WBC (Bld) [#/Vol] 4.5 10*3/uL 4.4-11.0 [facility] Work Phone: Blood erythrocytes count (nu mber/volume)on 10-14-2021 RBC (Bld) [#/Vol] 3.67 10*6/uL 4.2-5.4 [facility] Work [facility]: Blood hemoglobin measurement (mass/volume)on 10-14-2021 Hemoglobin (Bld) [Mass/Vol] 11.7 g/dL 12.0-15.0 [facility] Work Phone: Blood lymphocytes/100 leukoc yteson 10-14-2021 Lymphocytes/100 WBC (Bld) 21.0 % 19-41 [facility] Work Phone: Blood monocytes/100 leukocyt eson 10-14-2021 Monocytes/100 WBC (Bld) 9.6 % 0-10 [facility] Work Phone: Blood platelet mean volumeon 10-14-2021 Platelet mean volume (Bld) [Entitic vol] 10.2 fL 6.2-12.0 [facility] Work Phone: Determination of erythrocyte mean corpuscular volume (MCV)on 10-14-2021 MCV (RBC) [Entitic vol] 97.3 fL 81-99 [facility] Work Phone: Hematocrit Auto (Bld) [Volum e fraction]on 10-14-2021 Hematocrit (Bld) [Volume fraction] 35.7 % 37-47 [facility] Work Phone: Laboratory - Chemistry and C hemistry - challengeon 10-14-2021 ALP [Catalytic activity/Vol] 42 U/L 45-117 [facility] Work Phone: ALT [Catalytic activity/Vol] 44 U/L 13-56 [facility] Work Phone: CO2 [Moles/Vol] 31.0 mmol/L 21.0-32.0 [facility] Work Phone: Globulin (S) [Mass/Vol] 3.4 g/dL 2.2-4.2 [facility] Work Phone: Urea nitrogen/Creatinine [Mass ratio] 26.4 mg/mg 10-20 [facility] Work Phone: Laboratory - Hematology and Cell countson 10-14-2021 Erythrocyte distribution width (RBC) [Entitic vol] 47.8 fL 35.1-43.9 [facility] Work Phone: Erythrocyte distribution width (RBC) [Ratio] 13.4 % 11.6-14.6 [facility] Work Phone: Immature granulocytes/100 WBC (Bld) 0.200 % 0.0-0.9 [facility] Work Phone: Comment on above: IG% - Immature Granu locytes (promyelocytes, myelocytes and metamyelocytes) > 1% indicates that a LEFT SHIFT is Present. MCH (RBC) [Entitic mass] 31.9 pg 27.0-32.0 [facility] Work Phone: Nucleated RBC/100 WBC (Bld) [Ratio] 0 % 0-5 [facility] Work Phone: MCHC Auto (RBC) [Mass/Vol]on 10-14-2021 MCHC (RBC) [Mass/Vol] 32.8 g/dL 32-36 [facility] Work Phone: No Panel Informationon 10-14 Estimated GFR (MDRD) Amer 90 mL/min >60 [facility] Work Phone: Comment on above: GFR Calc Estimated GFR (MDRD) Non-Af Amer 75 mL/min >60 [facility] Work Phone: Comment on above: Non- GFR Calc Platelets bldon 10-14-2021 Platelets (Bld) [#/Vol] 175 10*3/uL 150-450 [facility] Work Phone: Serum or plasma albumin koki urement (mass/volume)on 10-14-2021 Albumin [Mass/Vol] 3.7 g/dL 3.2-5.0 [facility] Work Phone: Serum or plasma albumin/glob ulin mass ratioon 10-14-2021 Albumin/Globulin [Mass ratio] 1.1 {ratio} 0.9-2.4 [facility] Work Phone: Serum or plasma calcium koki urement (mass/volume)on 10-14-2021 Calcium [Mass/Vol] 8.9 mg/dL 8.5-10.1 [facility] Work Phone: Serum or plasma creatinine m easurement (mass/volume)on 10-14-2021 Creatinine [Mass/Vol] 0.79 mg/dL 0.55-1.02 [facility] Work Phone: Comment on above: The validity of the calculated GFR & GFRAA in patients over 70 years has not been determined. Clinical correlation is essential. Serum or plasma urea nitroge n measurement (mass/volume)on 10-14-2021 Urea nitrogen [Mass/Vol] 21 mg/dL 7-18 [facility] Work Phone: Thin prep Papanicolaou smear with manual screeningon 10-14-2021 Thin prep Papanicolaou smear with manual screening 33 U/L 15-37 [facility] Work Phone: Thin prep Papanicolaou smear with manual screening 3 5-15 [facility] Work Phone: CORONAVIRUS PCR - [place] 08-18-2021 SARS-CoV-2 (COVID-19) RNA KATE+probe Ql (Unsp spec) Positive Critically abnormal NORMAL: NEGATIVE [facility] Comment on above: Result Comment: { CA LLED TO infection control { READ BACK BY Performed By: #### [id number] #### [facility],[address] [place] [id number] SEND TO ? YES Normal [facility] Comment on above: Result Comment: ANA ZAMORA FAXED TO INFECTION CONTROL. SARS-CoV-2 THIS TEST IS BEING USED UNDER THE FDA EUA PROCEDURE. THIS ASSAY HAS BEEN VALIDATED IN THE [facility] FOR USE WITH NASOPHARYNGEAL SPECIMENS IN [facility]. INTERPRETIVE DATA LABORATORY TEST RESULTS SHOULD ALWAYS [...] PUBLIC HEALTH AUTHORITIES. Performed By: #### [id number] #### [facility],[address] [place] [id number] Mamm - Screening Mammogram w / Tomosynthesison 02-10-2021 MG Breast Screening Normal [facility] [employer] Work Phone: Xray Bone Density, Dexa 1 or More Siteson 02-10-2021 Xray Bone Density, Dexa 1 or More Sites Normal [facility] [employer] Work Phone: Radiologyon 01-27-2021 US.doppler Carotid [facility] Work Phone: Cult, Urineon 12-14-2019 Bacteria identified Cx Nom (U) PATIENT: KIM ROCHA [facility] [id number] : 45 AGE: SEX: F ORDERED BY: WICHO DESAI: URINE COLLECTED: 12/14/19 10:22ANTIBIOTICS AT [facility].: RECEIVED : 12/14/19 23:15SITE: Clean Catch/Voided R E S U L T S URINE CULTURE,BACTERIAL FINAL 12/16/19 08:08 NO SIGNIFICANT GROWTH. [employer] [facility] Work Phone: Comment on above: Ordering Provider: Romina DESAI [id number] Complete Blood Count + Diffe rentialon 12-05-2019 Basophils (Bld) [#/Vol] 0.00 {x10E9/L} See Below [facility] Work Phone: Comment on above: Reference Range: 0.0 0 - 0.10 Basophils/100 WBC (Bld) 1.1 % 0.0 - 2.0 [facility] Work Phone: Eosinophils (Bld) [#/Vol] 0.10 {x10E9/L} See Below [facility] Work Phone: Comment on above: Reference Range: 0.0 0 - 0.40 Eosinophils/100 WBC (Bld) 3.6 % 0.0 - 6.0 [facility] Work Phone: Erythrocyte distribution width (RBC) [Ratio] 15.0 % above high threshold See Below [facility] Work Phone: Comment on above: Reference Range: 11. 5 - 14.5 Hematocrit (Bld) [Volume fraction] 39.4 % See Below [facility] Work Phone: Comment on above: Reference Range: 36. 0 - 46.0 Hemoglobin (Bld) [Mass/Vol] 13.3 g/dL See Below [employer] [facility] Work Phone: Comment on above: Reference Range: 12. 0 - 16.0 Lymphocytes (Bld) [#/Vol] 1.00 {x10E9/L} See Below [facility] Work Phone: Comment on above: Reference Range: 0.8 0 - 3.00 Lymphocytes/100 WBC (Bld) 26.3 % See Below [facility] Work Phone: Comment on above: Reference Range: 13. 0 - 44.0 MCHC (RBC) [Mass/Vol] 33.8 g/dL See Below [facility] [employer] [facility] Work Phone: Comment on above: Reference Range: 32. 0 - 36.0 MCV (RBC) [Entitic vol] 96 fL 80 - 100 [facility] Work Phone: Monocytes (Bld) [#/Vol] 0.30 {x10E9/L} See Below [facility] Work Phone: Comment on above: Reference Range: 0.0 5 - 0.80 Monocytes/100 WBC (Bld) 8.5 % 2.0 - 10.0 [facility] Work Phone: Neutrophils (Bld) [#/Vol] 2.40 {x10E9/L} See Below [facility] Work Phone: Comment on above: Reference Range: 1.6 0 - 5.50 Percent differential counts (%) should be interpreted in the context of the absolute cell counts (cells/L). Neutrophils/100 WBC (Bld) 60.5 % See Below [facility] Work Phone: Comment on above: Reference Range: 40. 0 - 80.0 Platelets (Bld) [#/Vol] 205 {x10E9/L} 150 - 450 [facility] Work Phone: RBC (Bld) [#/Vol] 4.12 {x10E12/L} See Below [employer] [facility] Work Phone: Comment on above: Reference Range: 4.0 0 - 5.20 WBC (Bld) [#/Vol] 3.9 {x10E9/L} below low threshold 4.4 - 11.3 [employer] [facility] Work Phone: WBC (Bld) [#/Vol] 0.1 {/100_WBC} - [employer] [facility] Work Phone: Hemoglobin A1Con 12-05-2019 HbA1c (Bld) [Mass fraction] 114 {MG/DL} [employer] [facility] Work Phone: HbA1c (Bld) [Mass fraction] 5.6 % [employer] [facility] Work Phone: Comment on above: Diagnosis of Diabete s-Adults Non-Diabetic: < or = 5.6% Increased risk for developing diabetes: 5.7-6.4% Diagnostic of diabetes: > or = 6.5%. Monitoring of Diabetes Age (y) Therapeutic Goal (%) Adults: >18 <7.0 Pediatrics: 13-18 <7.5 7-12 <8.0 0- 6 7.5-8.5 [place] [employer]. Diabetes Care 33(S1), Sep 2009. Metabolic Panelon 12-05-2019 ALP [Catalytic activity/Vol] 34 U/L 33 - 136 [employer] [facility] Work Phone: Anion gap [Moles/Vol] 13 mmol/L 10 - 20 [employer] [facility] Work Phone: Bilirubin [Mass/Vol] 0.5 mg/dL 0.0 - 1.2 [employer] [facility] Work Phone: Calcium [Mass/Vol] 9.9 mg/dL 8.6 - 10.3 [facility] [employer] [facility] Work Phone: Chloride [Moles/Vol] 103 mmol/L 98 - 107 [employer] [facility] Work Phone: CO2 [Moles/Vol] 27 mmol/L 21 - 32 [facility] Work Phone: Creatinine [Mass/Vol] 0.85 mg/dL See Below [facility] Work Phone: Comment on above: Reference Range: 0.5 0 - 1.05 Glucose [Mass/Vol] 88 mg/dL 74 - 99 [facility] Work Phone: Potassium [Moles/Vol] 4.3 mmol/L 3.5 - 5.3 [facility] Work Phone: Protein [Mass/Vol] 7.3 g/dL 6.4 - 8.2 [facility] Work Phone: Sodium [Moles/Vol] 139 mmol/L 136 - 145 [facility] Work Phone: Urea nitrogen [Mass/Vol] 20 mg/dL 6 - 23 [facility] Work Phone: Otheron 12-05-2019 Albumin BCP dye [Mass/Vol] 4.3 g/dL 3.4 - 5.0 [facility] Work Phone: ALT With P-5'-P [Catalytic activity/Vol] 32 U/L 7 - 45 [facility] Work Phone: Comment on above: Patients treated wit h Sulfasalazine may generate falsely decreased results for ALT. AST With P-5'-P [Catalytic activity/Vol] 34 U/L 9 - 39 [facility] Work Phone: >60 >60 [facility] Work Phone: Comment on above: CALCULATIONS OF SEAN MATED GFR ARE PERFORMED USING THE MDRD STUDY EQUATION FOR THE IDMS-TRACEABLE CREATININE METHODS. CLIN CHEM 2007;53:766-72 TSH - Thyroid Stimulating Ho subha, Serumon 12-05-2019 TSH Qn 2.81 {mIU/L} See Below [employer] [facility] Work Phone: Comment on above: Reference Range: 0.4 4 - 3.98 Note new pediatric reference range as of 11/29/2019. TSH testing is performed using different testing methodology at [facility] than at other [facility]. Direct result comparisons should only be made within the same method. Vitamin B12, Serumon 020 Cobalamin (Vitamin B12) [Mass/Vol] 532 pg/mL 211 - 911 [facility] Work Phone: MA Mamm Screen w/CAD if perf ormed bilaton 01-04-2019 MA Mamm Screen w/CAD if performed bilat Exam Date/Time: 01/03/2019 11:05 EDT Reason for Exam: SCREENING OSTEOPENIA;Screening Report STUDY: Digital mammography screening; 01/03/2019 11:05 am ACCESSION NUMBER(S): [id number] ORDERING CLINICIAN: Akanksha Millan INDICATION: Screening. COMPARISON: [...] Category 1-Negative Recommendation: Normal interval follow-up Normal [facility] BD Bone Density DEXAon 01-03 BD Bone Density DEXA Exam Date/Time: 01/03/2019 10:51 EDT Reason for Exam: SCREENING OSTEOPENIA;Osteopenia Report STUDY: BD Bone Density DEXA; 01/03/2019 10:51 am INDICATION: Osteopenia. Evaluate for osteopenia/osteoporos is, ACCESSION NUMBER(S): [id number] ORDERING CLINICIAN: Akanksha Millan FINDINGS: Standard measurements [...] by: Stephon Rendon MD Technologist: NARINDER Normal [facility] TSHon 11-29-2018 Thyrotropin Qn 3.17 mcIU/mL Normal 0.30-5.60 [facility] Comment on above: Performed By: #### [id number] #### [employer] [address] [place] [address] Vit B12on 11-29-2018 Cobalamin (Vitamin B12) mass conc 646 pg/mL Normal 180-914 [facility] Comment on above: Performed By: #### [id number] #### [employer] [facility] [place] [address] C Urineon 11-17-2018 C Urine Final Report: Rare Mixed skin contaminants Normal [facility] Comment on above: Performed By: #### [id number] #### CRYS Microbiology Subsection [facility] [place] [address] POC Urinalysis Dip POCon POC Bilirubin Negative Normal Negative [facility] Comment on above: Performed By: #### C D:[id number] #### CRYS POC Subsection [address] [place] [address] POC Blood Moderate 2+ Abnormal Negative [facility] Comment on above: Performed By: #### C D:[id number] #### CRYS POC Subsection [address] [place] [address] POC Clarity CLEAR Normal CLEAR [facility] Comment on above: Performed By: #### C D:[id number] #### CRYS POC Subsection [address] [place] [address] POC Color [place] Abnormal Yellow [facility] Comment on above: Performed By: #### C D:[id number] #### CRYS POC Subsection [address] [place] [address] POC Glucose 250mg/dl 1+ Abnormal Negative [facility] Comment on above: Performed By: #### C D:[id number] #### CRYS POC Subsection [address] [place] [address] POC Ketone 5mg/dl Trace Abnormal Negative [facility] Comment on above: Performed By: #### C D:[id number] #### CRYS POC Subsection [facility] [place] [address] POC Leukocyte Large 3+ Abnormal Negative [facility] Comment on above: Performed By: #### C D:[id number] #### CRYS POC Subsection [address] [place] [address] POC Nitrite Positive Abnormal Negative [facility] Comment on above: Performed By: #### C D:[id number] #### CRYS POC Subsection [address] [place] [address] POC pH 5.0 mg/dL Normal 5.0-8.0 [facility] Comment on above: Performed By: #### C D:[id number] #### CRYS POC Subsection [address] [place] [address] POC Specific [place] 1.020 mg/dL Normal 1.005-1.035 [facility] Comment on above: Performed By: #### C D:[id number] #### CRYS POC Subsection [address] [place] [address] POC Urobilinogen 4.0 EU/dL High 0.2-1.0 [facility] Comment on above: Performed By: #### C D:[id number] #### CRYS POC Subsection [address] [place] [address] Protein mass conc (U) 100mg/dl 2+ Abnormal Negative [facility] Comment on above: Performed By: #### C D:[id number] #### CRYS POC Subsection [address] [place] [address] C Urineon 11-05-2018 C Urine Final Report: [...] >8 R SXT : <=2/38 S Normal [facility] Comment on above: Performed By: #### [id number] #### CRYS Microbiology Subsection [address] [place] [address] POC Urinalysis Dip POCon POC Bilirubin Negative Normal Negative [facility] Comment on above: Performed By: #### C D:[id number] #### CRYS POC Subsection [address] [place] [address] POC Blood Large 3+ Abnormal Negative [facility] Comment on above: Performed By: #### C D:[id number] #### CRYS POC Subsection [facility] [place] [address] POC Clarity CLEAR Normal CLEAR [facility] Comment on above: Performed By: #### C D:[id number] #### CRYS POC Subsection [address] [place] [address] POC Color Yellow Normal Yellow [facility] Comment on above: Performed By: #### C D:[id number] #### CRYS POC Subsection [address] [place] [address] POC Glucose Negative Normal Negative [facility] Comment on above: Performed By: #### C D:[id number] #### CRYS POC Subsection [address] [place] [address] POC Ketone Negative Normal Negative [facility] Comment on above: Performed By: #### C D:[id number] #### CRYS POC Subsection [address] [place] [address] POC Leukocyte Small 1+ Abnormal Negative [facility] Comment on above: Performed By: #### C D:[id number] #### CRYS POC Subsection [address] [place] [address] POC Nitrite Negative Normal Negative [facility] Comment on above: Performed By: #### C D:[id number] #### CRYS POC Subsection [address] [place] [address] POC pH 5.5 mg/dL Normal 5.0-8.0 [facility] Comment on above: Performed By: #### C D:[id number] #### CRYS POC Subsection [address] [place] [address] POC Specific [place] 1.015 mg/dL Normal 1.005-1.035 [facility] Comment on above: Performed By: #### C D:[id number] #### CRYS POC Subsection [address] [place] [address] POC Urobilinogen 0.2 EU/dL Normal 0.2-1.0 [facility] Comment on above: Performed By: #### C D:[id number] #### CRYS POC Subsection [address] [place] [address] Protein mass conc (U) Negative Normal Negative [facility] Comment on above: Performed By: #### C D:[id number] #### CRYS POC Subsection [facility] [place] [address] CT Abdomen/Pelvis w/o Contra yulia 07-05-2018 CT Abdomen/Pelvis w/o Contrast Exam Date/Time: 07/05/2018 11:15 EDT Reason for Exam: 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 COMPARISON: None. ACCESSION NUMBER(S): [id number] ORDERING CLINICIAN: Akanksha Millan TECHNIQUE: Contiguous axial [...] Signed by: Stephon Rendon MD Technologist: CHAR [facility] CNOVon 09-23-2017 CNOV Office Visit ([facility]) ----KIM ROCHA ([id number]) 1945 [facility] Time Provider [id number]/29/17 10:30 AM LILLIAN LAWRENCE (LAKESHIA) [facility] During [...] (VITAMIN E, DL, ACETATE,) 100 unit capsule [id number] Units by mouth once daily.pyridoxine, vitamin B6, [...] - GI UpsetDate Reviewed: 09/23/2017Reviewed by: Lillian (Records Associate) Howard - Fully AssessedReason for Visit: Cough [...] Status:Closed by LILLIAN LAWRENCE CNP on 09/23/17 [facility] PROGRESSon 09-23-2017 PROGRESS HNO ID: [id number]: Lillian (Lakeshia) KaputService: (none)Author Type: Nurse PractitionerType: [...] agreeable to treatment plan.Lillian Lawrence CNP Normal [facility] Vital Signs Date Time Vital Sign Value Performing Clinician Facility 05-16-2025 16:27-0400 Body height 167.6 cm Akanksha Millan MD Work Phone: [facility] 05-16-2025 16:27-0400 Body mass index (BMI) [Ratio] 23.11 kg/m2 Akanksha Millan MD Work Phone: [facility] 05-16-2025 16:27-0400 Body weight 64.95 kg Akanksha Millan MD Work Phone: [facility] 05-16-2025 16:27-0400 Diastolic blood pressure 90 mm[Hg] Akanksha Millan MD Work Phone: [facility] 05-16-2025 16:27-0400 Heart rate 62 /min Akanksha Millan MD Work Phone: [facility] 05-16-2025 16:27-0400 SaO2% (BldA) [Mass fraction] 95 % Akanksha Millan MD Work Phone: [facility] 05-16-2025 16:27-0400 Systolic blood pressure 160 mm[Hg] Akanksha Millan MD Work Phone: [facility] 02-07-2025 10:08-0400 Body height 167.6 cm Rogers Bradley DO Work Phone: [facility] 02-07-2025 10:08-0400 Body mass index (BMI) [Ratio] 22.73 kg/m2 Rogers Bradley DO Work Phone: [facility] 02-07-2025 10:08-0400 Body weight 63.87 kg Rogers Bradley DO Work Phone: [facility] 02-07-2025 10:08-0400 Diastolic blood pressure 78 mm[Hg] Rogers Bradley DO Work Phone: [facility] 02-07-2025 10:08-0400 Heart rate 67 /min Rogers Bradley DO Work Phone: [facility] 02-07-2025 10:08-0400 SaO2% (BldA) [Mass fraction] 96 % Rogers Bradley DO Work Phone: [facility] 02-07-2025 10:08-0400 Systolic blood pressure 128 mm[Hg] Rogers Bradley DO Work Phone: [facility] 12-20-2024 10:07-0400 Body height 167.6 cm Akanksha Millan MD Work Phone: [facility] 12-20-2024 10:07-0400 Body mass index (BMI) [Ratio] 22.89 kg/m2 Akanksha Millan MD Work Phone: [facility] 12-20-2024 10:07-0400 Body weight 64.32 kg Akanksha Millan MD Work Phone: [facility] 12-20-2024 10:07-0400 Diastolic blood pressure 70 mm[Hg] Akanksha Millan MD Work Phone: [facility] 12-20-2024 10:07-0400 Heart rate 62 /min Akanksha Millan MD Work Phone: [facility] 12-20-2024 10:07-0400 SaO2% (BldA) [Mass fraction] 98 % Akanksha Millan MD Work Phone: [facility] 12-20-2024 10:07-0400 Systolic blood pressure 120 mm[Hg] Akanksha Millan MD Work Phone: [facility] 10-26-2024 10:19-0500 Body height 167.6 cm Aileen Shoemaker DO Work Phone: [facility] 10-26-2024 10:19-0500 Body mass index (BMI) [Ratio] 23.29 kg/m2 Aileen Waverly DO Work Phone: [facility] 10-26-2024 10:19-0500 Body weight 65.41 kg Aileen Waverly DO Work Phone: [facility] 10-26-2024 10:19-0500 Diastolic blood pressure 68 mm[Hg] Aileen Waverly DO Work Phone: [facility] 10-26-2024 10:19-0500 Heart rate 68 /min Aileen Waverly DO Work Phone: [facility] 10-26-2024 10:19-0500 SaO2% (BldA) [Mass fraction] 93 % Aileen Waverly DO Work Phone: [facility] 10-26-2024 10:19-0500 Systolic blood pressure 122 mm[Hg] Aileen Waverly DO Work Phone: [facility] 08-30-2024 12:18-0500 Body height 167.[address] 08-30-2024 12:18-0500 Body mass index (BMI) [Ratio] 22.27 kg/m2 [address] 08-30-2024 12:18-0500 Body weight 62.[address] 08-30-2024 12:18-0500 Diastolic blood pressure 86 mm[Hg] [address] 08-30-2024 12:18-0500 Heart rate 59 /min [address] 08-30-2024 12:18-0500 Respiratory rate 18 /min [address] 08-30-2024 12:18-0500 SaO2% (BldA) [Mass fraction] 98 % [address] 08-30-2024 12:18-0500 Systolic blood pressure 174 mm[Hg] [address] 08-16-2024 11:18-0500 Body height 167.6 cm Milan Reid MD Work Phone: [facility] 08-16-2024 11:18-0500 Body mass index (BMI) [Ratio] 22.27 kg/m2 Milan Reid MD Work Phone: [facility] 08-16-2024 11:18-0500 Body weight 62.6 kg Milan Reid MD Work Phone: [facility] 08-16-2024 11:18-0500 Diastolic blood pressure 66 mm[Hg] Milan Ried MD Work Phone: [facility] 08-16-2024 11:18-0500 Heart rate 59 /min Milan Reid MD Work Phone: [facility] 08-16-2024 11:18-0500 SaO2% (BldA) [Mass fraction] 98 % Milan Reid MD Work Phone: [facility] 08-16-2024 11:18-0500 Systolic blood pressure 142 mm[Hg] Milan Reid MD Work Phone: [facility] 04-10-2024 16:23-0400 Body height 167.6 cm Akanksha Millan MD Work Phone: [facility] 04-10-2024 16:23-0400 Body mass index (BMI) [Ratio] 22.05 kg/m2 Akanksha Millan MD Work Phone: [facility] 04-10-2024 16:23-0400 Body weight 61.96 kg Akanksha Mlilan MD Work Phone: [facility] 04-10-2024 16:23-0400 Diastolic blood pressure 80 mm[Hg] Akanksha Millan MD Work Phone: [facility] 04-10-2024 16:23-0400 Heart rate 73 /min Akanksha Millan MD Work Phone: [facility] 04-10-2024 16:23-0400 SaO2% (BldA) [Mass fraction] 99 % Akanksha Millan MD Work Phone: [facility] 04-10-2024 16:23-0400 Systolic blood pressure 130 mm[Hg] Akanksha Millan MD Work Phone: [facility] 03-28-2024 12:45-0400 Diastolic blood pressure 83 mm[Hg] Lorenza Carver MD Work Phone: [facility] 03-28-2024 12:45-0400 Heart rate 82 /min Lorenza Carver MD Work Phone: [facility] 03-28-2024 12:45-0400 Respiratory rate 18 /min Lorenza Carver MD Work Phone: [facility] 03-28-2024 12:45-0400 SaO2% (BldA) [Mass fraction] 99 % Lorenza Carver MD Work Phone: [facility] 03-28-2024 12:45-0400 Systolic blood pressure 180 mm[Hg] Lorenza Carver MD Work Phone: [facility] 03-28-2024 10:50-0400 Body height 167.6 cm Lorenza Carver MD Work Phone: [facility] 03-28-2024 10:50-0400 Body mass index (BMI) [Ratio] 22.44 kg/m2 Lorenza Carver MD Work Phone: [facility] 03-28-2024 10:50-0400 Body temperature 97.81 [degF] Lorenza Carver MD Work Phone: [facility] 03-28-2024 10:50-0400 Body weight 63.05 kg Lorenza Carver MD Work Phone: [facility] 03-26-2024 16:29-0400 Body height 167.6 cm Akanksha Millan MD Work Phone: [facility] 03-26-2024 16:29-0400 Body mass index (BMI) [Ratio] 22.47 kg/m2 Akanksha Millan MD Work Phone: [facility] 03-26-2024 16:29-0400 Body weight 63.14 kg Akanksha Millan MD Work Phone: [facility] 03-26-2024 16:29-0400 Diastolic blood pressure 78 mm[Hg] Akanksha Millan MD Work Phone: [facility] 03-26-2024 16:29-0400 Heart rate 75 /min Akanksha Millan MD Work Phone: [facility] 03-26-2024 16:29-0400 SaO2% (BldA) [Mass fraction] 98 % Akanksha Millan MD Work Phone: [facility] 03-26-2024 16:29-0400 Systolic blood pressure 140 mm[Hg] Akanksha Millan MD Work Phone: [facility] 03-16-2024 23:31-0400 Diastolic blood pressure 64 mm[Hg] Ashley Miller MD Work Phone: [facility] 03-16-2024 23:31-0400 Heart rate 93 /min Ashley Miller MD Work Phone: [facility] 03-16-2024 23:31-0400 Respiratory rate 17 /min Ashley Miller MD Work Phone: [facility] 03-16-2024 23:31-0400 SaO2% (BldA) [Mass fraction] 97 % Ashley Miller MD Work Phone: [facility] 03-16-2024 23:31-0400 Systolic blood pressure 136 mm[Hg] Ashley Miller MD Work Phone: [facility] 03-16-2024 21:20-0400 Body height 167.6 cm Ashley Miller MD Work Phone: [facility] 03-16-2024 21:20-0400 Body mass index (BMI) [Ratio] 22.6 kg/m2 Ashley Miller MD Work Phone: [facility] 03-16-2024 21:20-0400 Body temperature 97.81 [degF] Ashley Miller MD Work Phone: [facility] 03-16-2024 21:20-0400 Body weight 63.5 kg Ashley Miller MD Work Phone: [facility] 03-16-2024 13:46-0400 Body height 167.6 cm Akanksha Millan MD Work Phone: [facility] 03-16-2024 13:46-0400 Body mass index (BMI) [Ratio] 22.68 kg/m2 Akanksha Millan MD Work Phone: [facility] 03-16-2024 13:46-0400 Body weight 63.73 kg Akanksha Millan MD Work Phone: [facility] 03-16-2024 13:46-0400 Diastolic blood pressure 60 mm[Hg] Akanksha Millan MD Work Phone: [facility] 03-16-2024 13:46-0400 Heart rate 87 /min Akanksha Millan MD Work Phone: [facility] 03-16-2024 13:46-0400 SaO2% (BldA) [Mass fraction] 97 % Akanksha Millan MD Work Phone: 7(548)[phone] [place] [address] 03-16-2024 13:46-0400 Systolic blood pressure 110 mm[Hg] Akanksha Millan MD Work Phone: 9(912)217-286664 [place] [address] 02-21-2024 13:23-0400 Body height 167.6 cm [facility] 02-21-2024 13:23-0400 Body mass index (BMI) [Ratio] 23.24 kg/m2 [facility] 02-21-2024 13:23-0400 Body weight 65.32 kg [facility] 02-09-2024 10:30-0400 Body height 167.6 cm Rogers Bradley DO Work Phone: [facility] 02-09-2024 10:30-0400 Body mass index (BMI) [Ratio] 23.24 kg/m2 Rogers Bradley DO Work Phone: [facility] 02-09-2024 10:30-0400 Body weight 65.32 kg Rogers Bradley DO Work Phone: [facility] 12-20-2023 09:11-0400 Body height 167.6 cm Akanksha Millan MD Work Phone: [facility] 12-20-2023 09:11-0400 Body mass index (BMI) [Ratio] 23.08 kg/m2 Akanksha Millan MD Work Phone: [facility] 12-20-2023 09:11-0400 Body weight 64.86 kg Akanksha Millan MD Work Phone: [facility] 12-20-2023 09:11-0400 Diastolic blood pressure 70 mm[Hg] Akanksha Millan MD Work Phone: [facility] 12-20-2023 09:11-0400 Heart rate 61 /min Akanksha Millan MD Work Phone: [facility] 12-20-2023 09:11-0400 SaO2% (BldA) [Mass fraction] 97 % Akanksha Millan MD Work Phone: [facility] 12-20-2023 09:11-0400 Systolic blood pressure 130 mm[Hg] Akanksha Millan MD Work Phone: [facility] 12-12-2023 13:52-0400 Body height 167.6 cm Leann Alford APRN-SUPERVISOR MAINTENANCE Work Phone: [facility] 12-12-2023 13:52-0400 Body mass index (BMI) [Ratio] 23.3 kg/m2 Leann Alford APRN-SUPERVISOR MAINTENANCE Work Phone: [facility] 12-12-2023 13:52-0400 Body weight 65.48 kg Leann Wood TUMBLER PLATER-SUPERVISOR MAINTENANCE Work Phone: [facility] 12-12-2023 13:52-0400 Diastolic blood pressure 76 mm[Hg] Leann Wood TUMBLER PLATER-SUPERVISOR MAINTENANCE Work Phone: [facility] 12-12-2023 13:52-0400 Heart rate 63 /min Leann Wood TUMBLER PLATER-SUPERVISOR MAINTENANCE Work Phone: [facility] 12-12-2023 13:52-0400 SaO2% (BldA) [Mass fraction] 98 % Leann Wood TUMBLER PLATER-SUPERVISOR MAINTENANCE Work Phone: [facility] 12-12-2023 13:52-0400 Systolic blood pressure 126 mm[Hg] Leann Wood TUMBLER PLATER-SUPERVISOR MAINTENANCE Work Phone: [phone](422)[phone] [place] [address] 09-27-2023 11:10-0500 Body height 167.6 cm Kevin Mcdermott MD Work Phone: [phone] [place] [address] 09-27-2023 11:10-0500 Body mass index (BMI) [Ratio] 22.87 kg/m2 Kevin Mcdermott MD Work Phone: [facility] 09-27-2023 11:10-0500 Body weight 64.28 kg Kevin Mcdermott MD Work Phone: [facility] 09-27-2023 11:10-0500 Diastolic blood pressure 72 mm[Hg] Kevin Mcdermott MD Work Phone: 3(834)[phone] [place] [address] 09-27-2023 11:10-0500 Heart rate 89 /min Kevin Mcdermott MD Work Phone: [facility] 09-27-2023 11:10-0500 SaO2% (BldA) [Mass fraction] 96 % Kevin Mcdermott MD Work Phone: [facility] 09-27-2023 11:10-0500 Systolic blood pressure 138 mm[Hg] Kevin Mcdermott MD Work Phone: [facility] 09-06-2023 12:05-0500 Diastolic blood pressure 94 mm[Hg] Faustino 1 [facility] 09-06-2023 12:05-0500 Heart rate 59 /min Faustino 1 [facility] 09-06-2023 12:05-0500 Respiratory rate 16 /min Faustino 1 [facility] 09-06-2023 12:05-0500 SaO2% (BldA) [Mass fraction] 96 % Faustino 1 [facility] 09-06-2023 12:05-0500 Systolic blood pressure 174 mm[Hg] Faustino 1 [facility] 08-25-2023 10:48-0500 Body height 167.6 cm Milan Reid MD Work Phone: [facility] 08-25-2023 10:48-0500 Body mass index (BMI) [Ratio] 22.77 kg/m2 Milan Reid MD Work Phone: [facility] 08-25-2023 10:48-0500 Body weight 64 kg Milan Reid MD Work Phone: [facility] 08-25-2023 10:48-0500 Diastolic blood pressure 80 mm[Hg] Milan Reid MD Work Phone: [facility] 08-25-2023 10:48-0500 Heart rate 59 /min Milan Reid MD Work Phone: [facility] 08-25-2023 10:48-0500 SaO2% (BldA) [Mass fraction] 96 % Milan Reid MD Work Phone: [facility] 08-25-2023 10:48-0500 Systolic blood pressure 122 mm[Hg] Milan Reid MD Work Phone: [facility] 12-17-2022 10:04-0400 Body height 167.6 cm Akanksha Millan MD Work Phone: [facility] 12-17-2022 10:04-0400 Body mass index (BMI) [Ratio] 23.53 kg/m2 Akanksha Millan MD Work Phone: [facility] 12-17-2022 10:04-0400 Body weight 66.13 kg Akanksha Millan MD Work Phone: [facility] 12-17-2022 10:04-0400 Diastolic blood pressure 70 mm[Hg] Akanksha Millan MD Work Phone: [facility] 12-17-2022 10:04-0400 Heart rate 54 /min Akanksha Millan MD Work Phone: [facility] 12-17-2022 10:04-0400 SaO2% (BldA) [Mass fraction] 97 % Akanksha Millan MD Work Phone: [facility] 12-17-2022 10:04-0400 Systolic blood pressure 122 mm[Hg] Akanksha Millan MD Work Phone: [facility] 09-05-2022 21:34-0500 Heart rate 78 /min [facility] 09-05-2022 21:34-0500 Respiratory rate 18 /min [facility] 09-05-2022 21:34-0500 SaO2% (BldA) [Mass fraction] 98 % [facility] 09-05-2022 18:14-0500 Body height 167.64 cm [facility] 09-05-2022 18:14-0500 Body mass index (BMI) [Ratio] 23.8 kg/m2 [facility] 09-05-2022 18:14-0500 Body temperature 97.8 [degF] [facility] 09-05-2022 18:14-0500 Body weight 67.1 kg [facility] 09-05-2022 18:14-0500 Diastolic blood pressure 91 mm[Hg] [facility] 09-05-2022 18:14-0500 Systolic blood pressure 177 mm[Hg] [facility] 08-26-2022 11:21-0500 Body height 167.64 cm Akanksha Millan Work Phone: GA-Btsmrwbdnt-Bzdx [address] Work Phone: 08-26-2022 11:21-0500 Body mass index (BMI) [Ratio] 22.78 kg/m2 Akanksha Millan Work Phone: AR-Mbmqqhytwb-Muep [address] Work Phone: 08-26-2022 11:21-0500 Body surface area Derived from formula 1.72 m2 Akanksha Millan Work Phone: XH-Syiocicooo-Nkmh [address] Work Phone: 08-26-2022 11:21-0500 Body weight 64.02 kg Akanksha Millan Work Phone: DL-Ityclowrhw-Btrb [address] Work Phone: 08-26-2022 11:21-0500 Diastolic blood pressure 76 mm[Hg] Akanksha Millan Work Phone: FK-Xxtnctxmqn-Fthc [address] Work Phone: 08-26-2022 11:21-0500 Heart rate 56 /min Akanksha Millan Work Phone: OH-Gccrxxmash-Opwt [address] Work Phone: 08-26-2022 11:21-0500 SaO2% (BldA) [Mass fraction] 99 % Akanksha Millan Work Phone: TO-Dsbsadgcvt-Zkyt [address] Work Phone: 08-26-2022 11:21-0500 Systolic blood pressure 142 mm[Hg] Fortunatopatrick Millan Work Phone: ER-Xfliysewlm-Vtnc [address] Work Phone: 08-12-2022 10:07-0500 Body height 167.64 cm Fortunatopatrick Chucho Colton Work Phone: DM-Xupfivtqhj-Rond [address] Work Phone: 08-12-2022 10:07-0500 Body mass index (BMI) [Ratio] 22.82 kg/m2 Akanksha Millan Work Phone: JN-Odhvhxxcrk-Rrua [address] Work Phone: 08-12-2022 10:07-0500 Body surface area Derived from formula 1.73 m2 Akanksha Millan Work Phone: FO-Qchszjxcko-Llqj [address] Work Phone: 08-12-2022 10:07-0500 Body weight 64.13 kg Akanksha Millan Work Phone: MG-Bqutanuthm-Grud [address] Work Phone: 08-12-2022 10:07-0500 Diastolic blood pressure 80 mm[Hg] Akanksha Millan Work Phone: JY-Lnrgxnhwzg-Ldzi and [address] Work Phone: 08-12-2022 10:07-0500 Systolic blood pressure 140 mm[Hg] Akanksha Millan Work Phone: LV-Zszwujwncy-Qcrv and [address] Work Phone: 05-13-2022 10:08-0400 Body height 167.64 cm Akanksha Millan Work Phone: [facility] Work Phone: 05-13-2022 10:08-0400 Body mass index (BMI) [Ratio] 22.92 kg/m2 Akanksha Millan Work Phone: [facility] Work Phone: 05-13-2022 10:08-0400 Body surface area Derived from formula 1.73 m2 Akanksha Millan Work Phone: [facility] Work Phone: 05-13-2022 10:08-0400 Body weight 64.41 kg Akanksha Millan Work Phone: [facility] [address] Work Phone: 05-13-2022 10:08-0400 Diastolic blood pressure 80 mm[Hg] Akanksha Millan Work Phone: [facility] [address] Work Phone: 05-13-2022 10:08-0400 Systolic blood pressure 130 mm[Hg] Akanksha Millan Work Phone: [facility] 120 Work Phone: 02-11-2022 14:14-0400 Body height 167.64 cm Akanksha Millan Work Phone: [facility] 120 Work Phone: 02-11-2022 14:14-0400 Body mass index (BMI) [Ratio] 23.24 kg/m2 Akanksha Millan Work Phone: [facility] 120 Work Phone: 02-11-2022 14:14-0400 Body surface area Derived from formula 1.74 m2 Akanksha Millan Work Phone: [facility] 120 Work Phone: 02-11-2022 14:14-0400 Body weight 65.32 kg Akanksha Millan Work Phone: [facility] 120 Work Phone: 02-11-2022 14:14-0400 Diastolic blood pressure 70 mm[Hg] Akanksha Millan Work Phone: [facility] 120 Work Phone: 02-11-2022 14:14-0400 Systolic blood pressure 120 mm[Hg] Akanksha Millan Work Phone: [facility] 120 Work Phone: 12-09-2021 10:10-0400 Body height 167.64 cm Akanksha Millan Work Phone: [facility] Work Phone: 12-09-2021 10:10-0400 Body mass index (BMI) [Ratio] 23 kg/m2 Akanksha Millan Work Phone: [facility] Work Phone: 12-09-2021 10:10-0400 Body surface area Derived from formula 1.73 m2 Akanksha Millan Work Phone: [facility] Work Phone: 12-09-2021 10:10-0400 Body weight 64.64 kg Akanksha Millan Work Phone: [facility] Work Phone: 12-09-2021 10:10-0400 Diastolic blood pressure 70 mm[Hg] Akanksha Millan Work Phone: [facility] Work Phone: 12-09-2021 10:10-0400 Heart rate 57 /min Akanksha Millan Work Phone: [facility] Work Phone: 12-09-2021 10:10-0400 SaO2% (BldA) [Mass fraction] 97 % Akanksha Millan Work Phone: [facility] Work Phone: 12-09-2021 10:10-0400 Systolic blood pressure 128 mm[Hg] Akanksha Millan Work Phone: [facility] Work Phone: 02-13-2021 11:40-0400 Body height 169.55 cm Akanksha Millan Work Phone: [facility] [employer] Work Phone: 02-13-2021 11:40-0400 Body mass index (BMI) [Ratio] 21.84 kg/m2 Akanksha Millan Work Phone: [facility] [employer] Work Phone: 02-13-2021 11:40-0400 Body surface area Derived from formula 1.72 m2 Akanksha Millan Work Phone: [facility] [employer] Work Phone: 02-13-2021 11:40-0400 Body temperature 95.6 [degF] Akanksha Millan Work Phone: [facility] [employer] Work Phone: 02-13-2021 11:40-0400 Body weight 62.77 kg Akanksha Millan Work Phone: [facility] [employer] Work Phone: 02-13-2021 11:40-0400 Diastolic blood pressure 86 mm[Hg] Akanksha Millan Work Phone: [facility] [employer] Work Phone: 02-13-2021 11:40-0400 Heart rate 75 /min Akanksha Millan Work Phone: [facility] [employer] Work Phone: 02-13-2021 11:40-0400 SaO2% (BldA) [Mass fraction] 99 % Akanksha Millan Work Phone: [facility] [employer] Work Phone: 02-13-2021 11:40-0400 Systolic blood pressure 142 mm[Hg] Akanksha Millan Work Phone: [facility] [employer] Work Phone: 12-05-2019 11:54-0400 BMI (Body Mass Index) 23.02 kg/m2 Akanksha Millan [facility] Work Phone: 12-05-2019 11:54-0400 Body weight 66.68 kg Akanksha Millan [facility] Work Phone: 12-05-2019 11:54-0400 BP Diastolic 70 mm[Hg] Akanksha Millan [facility] Work Phone: Comment on above: Location: E; 12-05-2019 11:54-0400 BP Systolic 124 mm[Hg] Akanksha Millan [facility] Work Phone: Comment on above: Location: [facility]; 12-05-2019 11:54-0400 BSA (Body Surface Area) 1.77 m2 Akanksha Millan [facility] Work Phone: 12-05-2019 11:54-0400 Height 170.18 cm Akanksha Millan -[facility] [employer] [facility] Work Phone: 12-05-2019 11:54-0400 Pulse (Heart Rate) 69 /min Akanksha Millan -[facility] [employer] [facility] Work Phone: 12-05-2019 11:54-0400 Pulse Oximetry 98 % Akanksha Millan -[facility] [employer] [facility] Work Phone: Encounters Encounter Date Encounter Type Care Provider Facility Start: 08-02-2025 End: 08-02-[address] [facility] Facility:[facility] Start: 05-23-2025 End: 05-23-[address] Rashid Millan MD Work Phone: -Radiology [place] Start: 05-23-2025 End: 05-23-[address] Lety Marcelo MD -Radiology [place] Work Phone: Start: 05-23-2025 End: 05-23-2025 [facility] Start: 05-16-2025 End: 05-16-2025 Office outpatient visit 15 minutes Akanksha Millan MD Work Phone: [facility] Comment on above: Chronic pain of left knee (Primary Dx) Start: 05-16-2025 End: 05-16-2025 ambulatory THOMSON Chucho [facility] Start: 04-24-2025 End: 04-24-[address] Rashid Millan MD Work Phone: -Laboratory [place] Start: 04-24-2025 End: 04-24-[address] Lety Marcelo MD -Laboratory [place] Work Phone: Start: 04-24-2025 End: 04-24-[address] [facility] Facility:[facility] Start: 02-07-2025 End: 02-07-2025 ambulatory [facility] Ambulatory Start: 02-07-2025 End: 02-07-2025 Office outpatient visit 25 minutes [facility] Work Phone: [facility] Comment on above: Irritable bowel synd tammy with diarrhea (Primary Dx); Dry eye syndrome of both eyes; Acute Lyme disease; Rheumatoid arthritis with negative rheumatoid factor, involving unspecified site (Multi) Start: 02-06-2025 End: 02-06-[address] Rashid Millan MD Work Phone: [facility] Work Phone: Start: 02-06-2025 End: 02-06-[address] Lety Marcelo MD -Laboratory [place] Work Phone: Start: 02-06-2025 End: 02-06-2025 ambulatory [facility] Facility:[facility] Start: 02-04-2025 End: 02-04-2025 ambulatory [facility] Ambulatory Start: 12-20-2024 End: 12-20-2024 Subsequent hospital visit by physician Faustino X-Ray 1 [facility] Comment on above: Left leg pain Start: 12-20-2024 End: 12-20-2024 ambulatory THOMSON Chcuho [facility] Start: 12-20-2024 End: 12-20-2024 Assay of hemosiderin, quant Akanksha Millan MD Work Phone: [facility] Work Phone: Start: 12-20-2024 End: 12-20-2024 Patient encounter procedure Akanksha Millan MD Work Phone: [facility] Comment on above: Routine general medi jaspal examination at health care facility (Primary Dx); Encounter for screening, unspecified; Rheumatoid arthritis with negative rheumatoid factor, involving unspecified site (Multi); Fatigue, unspecified type; Hyperlipemia, mixed; Pulmonary hypertension (Multi); Vitamin B12 deficiency; Irritable bowel syndrome, unspecified type; Renal insufficiency; Left leg pain Start: 12-20-2024 End: 12-20-2024 [facility] M[facility] Start: 12-20-2024 End: 12-20-2024 Encounter for general adult medical examination without abnormal findings THOMSON Chucho [facility] Start: 10-30-2024 End: 10-30-2024 Subsequent hospital visit by physician Faustino Olivier [facility] Comment on above: Breast asymmetry Start: 10-30-2024 End: 10-30-2024 ambulatory [facility] Start: 10-26-2024 End: 10-26-2024 Office outpatient visit 15 minutes [facility] Work Phone: [facility] Comment on above: Breast asymmetry (Pr imary Dx) Start: 10-26-2024 End: 10-26-2024 ambulatory [facility] Ambulatory Start: 10-18-2024 End: 10-18-[address] Lety Marcelo MD -Laboratory [place] Work Phone: Start: 10-18-2024 End: 10-18-2024 ambulatory Lety Marcelo Facility:[facility] Start: 08-30-2024 End: 08-30-2024 Subsequent hospital visit by physician Faustino Doherty Cardiac Room [facility] Comment on above: Acute Lyme disease; Pulmonary HTN (Multi); NSVT (nonsustained ventricular tachycardia) (Multi) Start: 08-30-2024 End: 08-30-2024 ambulatory [facility] Start: 08-16-2024 End: 08-16-2024 Office outpatient visit 25 minutes Milan Reid MD Work Phone: [facility] Comment on above: Acute Lyme disease ( Primary Dx); Pulmonary HTN (Multi); NSVT (nonsustained ventricular tachycardia) (Multi) Start: 08-16-2024 End: 08-16-2024 ambulatory [facility] Ambulatory Start: 05-01-2024 End: 05-01-2024 ambulatory AKANKSHA Rankin MILLAN [facility] Start: 04-10-2024 End: 04-10-2024 Office outpatient visit 15 minutes Akanksha Millan MD Work Phone: [facility] Comment on above: Acute Lyme disease ( Primary Dx); Primary osteoarthritis, unspecified site Start: 03-28-2024 End: 03-30-2024 ambulatory LORENZA CARVER [facility] Start: 03-28-2024 End: 03-28-2024 Subsequent hospital visit by physician Faustino Yang [facility] [facility] Comment on above: Arrived Start: 03-28-2024 End: 03-28-2024 Emergency department patient visit Lorenza Carver MD Work Phone: [facility] Emergency Medicine Comment on above: Rheumatoid arthritis flare (Multi) (Primary Dx); Cervical radiculopathy; Hyponatremia; Water intoxication Start: 03-27-2024 End: 03-27-2024 ambulatory AKANKSHA Rankin MILLAN [facility] Start: 03-26-2024 End: 03-26-2024 Office outpatient visit 15 minutes Akanksha Millan MD Work Phone: [facility] Comment on above: Viral illness (Prima ry Dx); Anemia, unspecified type; Myalgia Start: 03-23-2024 End: 03-23-2024 [facility] Start: 03-16-2024 End: 03-16-2024 Emergency department patient visit Ashley Miller MD Work Phone: [facility] Emergency Medicine Comment on above: Pseudothrombocytopen ia (Primary Dx) Start: 03-16-2024 End: 03-16-2024 ambulatory AKANKSHA Rankin MILLAN [facility] Start: 03-16-2024 End: 03-16-2024 Office outpatient visit 15 minutes Akanksha Millan MD Work Phone: [facility] Comment on above: Viral illness (Prima ry Dx); Elevated liver function tests Start: 02-21-2024 End: 02-21-2024 ambulatory [facility] Start: 02-21-2024 End: 02-21-2024 Subsequent hospital visit by physician Faustino Olivier [facility] Comment on above: Breast cancer screen ing by mammogram Start: 02-09-2024 End: 02-09-2024 Office outpatient visit 15 minutes Rogers Bradley DO Work Phone: [facility] Comment on above: Irritable bowel synd tammy, unspecified type (Primary Dx) Start: 01-10-2024 End: 01-10-2024 ambulatory [facility] Work Phone: Start: 01-10-2024 End: 01-10-2024 Patient encounter procedure [facility] Work Phone: Start: 12-20-2023 End: 12-20-2023 Assay of hemosiderin, quant Akanksha Millan MD Work Phone: [facility] Work Phone: Start: 12-20-2023 End: 12-20-2023 Patient encounter procedure Akanksha Millan MD Work Phone: [facility] Comment on above: Routine general medi jaspal examination at health care facility (Primary Dx); Rheumatoid arthritis with negative rheumatoid factor, involving unspecified site (CMS/HCC); Fatigue, unspecified type; Hyperlipemia, mixed; Pulmonary hypertension (CMS/HCC); Vitamin B12 deficiency; Irritable bowel syndrome, unspecified type; Hematuria, unspecified type; Breast cancer screening by mammogram Start: 12-12-2023 End: 12-12-2023 Office outpatient visit 15 minutes [facility] Work Phone: [facility] Comment on above: Acute cystitis with hematuria (Primary Dx); Rheumatoid arthritis, involving unspecified site, unspecified whether rheumatoid factor present (CMS/HCC); Pulmonary hypertension ([facility]/HCC); Hematuria, unspecified type Start: 10-18-2023 End: 10-18-2023 ambulatory [facility] Work Phone: Start: 10-18-2023 End: 10-18-2023 Patient encounter procedure [facility] [place] Work Phone: Start: 09-30-2023 End: 09-30-2023 [facility] Work Phone: Start: 09-30-2023 End: 09-30-2023 Patient encounter procedure [facility] [place] Work Phone: Start: 09-27-2023 End: 09-27-2023 Office outpatient visit 15 minutes Kevin Mcdermott MD Work Phone: [facility] Comment on above: Acute cough (Primary Dx) Start: 09-06-2023 End: 09-06-2023 Subsequent hospital visit by physician Faustino Palma [address] [place] [address] Comment on above: Irregular heartbeat; Syncope and collapse Start: 08-25-2023 End: 08-25-2023 Office outpatient visit 25 minutes Milan Reid MD Work Phone: [facility] Comment on above: Syncope and collapse (Primary Dx); Irregular heartbeat Start: 06-30-2023 End: 06-30-2023 Patient encounter procedure [facility] [place] Work Phone: Start: 06-20-2023 End: 06-20-2023 Patient encounter procedure [facility] d, [facility] Work Phone: Start: 04-28-2023 End: 04-28-2023 ambulatory [facility] Work Phone: Start: 04-28-2023 End: 04-28-2023 Patient encounter procedure [facility] Work Phone: Start: 03-04-2023 End: 03-04-2023 ambulatory [facility] Work Phone: Start: 03-04-2023 End: 03-04-2023 Patient encounter procedure [facility] Start: 02-25-2023 End: 02-25-2023 ambulatory [facility] Work Phone: Start: 02-25-2023 End: 02-25-2023 Patient encounter procedure [facility] Start: 02-18-[address] Rashid Millan Facility:[id number] Start: 12-23-2022 End: 12-23-2022 [facility] Work Phone: Start: 12-23-2022 End: 12-23-2022 Patient encounter procedure [facility] Start: 12-17-2022 End: 12-17-2022 Assay of hemosiderin, quant Akanksha Millan MD Work Phone: [facility] Work Phone: Start: 12-17-2022 End: 12-17-2022 Patient encounter procedure Akanksha Millan MD Work Phone: [facility] Comment on above: Routine general medi jaspal examination at health care facility (Primary Dx); Rheumatoid arthritis with negative rheumatoid factor, involving unspecified site (CMS/HCC); Hyperlipemia, mixed; Vitamin B12 deficiency; Irritable bowel syndrome, unspecified type; Pulmonary hypertension (CMS/HCC); Breast screening; Fatigue, unspecified type; Breast cancer screening by mammogram; Irregular heartbeat Start: 09-29-2022 End: 09-29-2022 Patient encounter procedure [facility] Start: 09-05-2022 End: 09-05-2022 Emergency department patient visit [facility] Start: 08-26-2022 Office outpatient vi sit 15 minutes Akanksha Millan Work Phone: [id number] and [address] Work Phone: Start: 05-14-2022 End: 05-14-2022 ambulatory [facility] Work Phone: Start: 05-14-2022 End: 05-14-2022 [facility] Start: 05-13-2022 Office outpatient vi sit 15 minutes Akanksha Millan Work Phone: -[facility] Gastroenterology-A [employer] 120 Work Phone: Start: 04-14-2022 AUDIT Akanksha Millan Work Phone: [id number] and [address] [facility] Work Phone: Start: 03-31-2022 End: 03-31-2022 Patient encounter procedure [facility] Start: 02-18-2022 Chart Update Akanksha Millan Work Phone: -[facility] Work Phone: Start: 02-11-2022 Office outpatient ne w 30 minutes Akanksha Millan Work Phone: -[facility] Gastroenterology-A [employer] 120 Work Phone: Start: 12-30-2021 End: 12-30-2021 Patient encounter procedure [facility] Start: 12-09-2021 Patient encounter procedure Mik Millan Work Phone: -[facility] Work Phone: Start: 10-14-2021 End: 10-14-2021 Patient encounter procedure [facility] Start: 08-18-2021 End: 08-18-[address] DANIAL SOSA [facility] Start: 05-12-2021 AUDIT Akanksha Millan Work Phone: [facility]Zjcopdxfme[facility]Ruud and [address] Work Phone: Start: 02-13-2021 Office outpatient ne w 45 minutes Akanksha Millan Work Phone: DT-Jwudwuksfp-Pris and [address] Work Phone: Start: 01-29-2021 AUDIT Akanksha Millan Work Phone: [facility] [employer] Work Phone: Start: 09-23-2017 End: 09-23-2017 Ambulatory [facility] Patient encounter procedure Chri aman Millan Work Phone: [facility] [employer] Work Phone: Procedures Date Procedure Procedure Detail [...] et rgnt auto w/o microscopy Leann Alford APRN-SUPERVISOR MAINTENANCE Work Phone: Start: 09-06-2023 Echo tthrc r-t [...] Author Start: 01-09-2029 Lipid panel Lipid Panel [facility] Start: 12-24-2027 Lipid panel Lipid Panel [facility] Start: 02-13-2026 End: 02-13-2026 Patient encounter procedure 02/13/2026 10:00 AM EDT Office Visit [facility] [address] [facility] [address] [place] [phone] Rogers Bradley, [address] [facility] [place] [address] [place] [address] [facility] Start: 12-23-2025 End: 12-23-2025 Patient encounter procedure 12/23/2025 10:00 AM EDT Office Visit [facility] [address] [facility] [address] [place] [phone] Akanksha Millan MD [address] [facility] [address] [place] [address] [facility] Start: 12-21-2025 Medicare Annual Wellness Visit Medicare Annual Wellness Visit (AWV) [facility] Start: 08-13-2025 End: 08-13-2025 Patient encounter procedure 08/13/2025 1:45 PM EST Office Visit [facility] [address] [place] [phone] Al Downey, TUMBLER PLATER-SUPERVISOR MAINTENANCE [address] [place] [address] [facility] Start: 05-27-2025 Influenza vaccination Influenza Vacc ine (#1) [facility] Start: 02-07-2025 End: 02-07-2025 Patient encounter procedure 02/07/2025 10:00 AM EDT Office Visit [facility] [address] [place] [phone] Rogers Bradley, [address] [facility] [place] [address] [place] [id number] [facility] Start: 01-17-2025 COVID-19 Vaccine ( season) COVID-19 Vaccine ( season) [facility] Start: 01-17-2025 COVID-19 Vaccine (7 - Moderna risk season) COVID-19 Vaccine (7 - Moderna risk season) [facility] Start: 12-20-2024 End: 12-20-2025 C reactive protein [Mass/volume] in Serum or Plasma C-Reactive Protein Lab Routine Fatigue, unspecified type Expected: 12/20/2024 (Approximate), Expires: 12/20/2025 [facility] Work Phone: Comment on above: Expected: 12/20/2024 (Approximate), Expires: 12/20/2025 Start: 12-20-2024 End: 12-20-2025 CBC W Auto Differential panel - Blood CBC and Auto Differential Lab Routine Vitamin B12 deficiency Renal insufficiency Expected: 12/20/2024 (Approximate), Expires: 12/20/2025 [facility] Work Phone: Comment on above: Expected: 12/20/2024 (Approximate), Expires: 12/20/2025 Start: 12-20-2024 End: 12-20-2025 Cobalamin (Vitamin B12) [Mass/volume] in Serum or Plasma Vitamin B12 Lab Routine Vitamin B12 deficiency Expected: 12/20/2024 (Approximate), Expires: 12/20/2025 [facility] Work Phone: Comment on above: Expected: 12/20/2024 (Approximate), Expires: 12/20/2025 Start: 12-20-2024 End: 12-20-2025 Comprehensive metabolic 2000 panel - Serum or Plasma Comprehensive Metabolic Panel Lab Routine Renal insufficiency Expected: 12/20/2024 (Approximate), Expires: 12/20/2025 [facility] Work Phone: Comment on above: Expected: 12/20/2024 (Approximate), Expires: 12/20/2025 Start: 12-20-2024 End: 12-20-2025 Erythrocyte sedimentation rate Sedimentation Rate Lab Routine Fatigue, unspecified type Expected: 12/20/2024 (Approximate), Expires: 12/20/2025 [facility] Work Phone: Comment on above: Expected: 12/20/2024 (Approximate), Expires: 12/20/2025 Start: 12-20-2024 Medicare Annual Wellness Visit Medicare Annual Wellness Visit (AWV) [facility] Start: 12-20-2024 End: 12-20-2025 TSH with reflex to Free T4 if abnormal TSH with reflex to Free T4 if abnormal Lab Routine Fatigue, unspecified type Expected: 12/20/2024 (Approximate), Expires: 12/20/2025 [facility] Work Phone: Comment on above: Expected: 12/20/2024 (Approximate), Expires: 12/20/2025 Start: 12-20-2024 End: 12-20-2025 XR Lumbar spine 2 or 3 Views [facility] Service Area Work Phone: Comment on above: Expected: 12/20/2024 , Expires: 12/20/2025 Once for 1 Occurrenc es starting 12/20/2024 until 12/20/2024 Start: 12-20-2024 End: 12-20-2024 Patient encounter procedure [facility] Comment on above: Lyme disease, unspec ified (Primary Dx); Other fatigue; Encounter for screening, unspecified Start: 10-26-2024 End: 12-24-2025 DBT Breast - bilateral diagnostic BI mammo bilateral diagnostic tomosynthesis Imaging Routine Breast asymmetry Expected: 10/26/2024 (Approximate), Expires: 12/24/2025 [facility] Work Phone: Comment on above: Expected: 10/26/2024 (Approximate), Expires: 12/24/2025 Start: 08-16-2024 End: 08-16-2025 Holter monitor study Holter or Event Warehouse Director Cardiac Services Routine Acute Lyme disease Pulmonary HTN (Multi) NSVT (nonsustained ventricular tachycardia) (Multi) Expected: 08/16/2024, Expires: 08/16/2025 [facility] Work Phone: Comment on above: Expected: 08/16/2024 , Expires: 08/16/2025 Start: 08-16-2024 End: 08-16-2026 US Heart Transthoracic Transthoracic Echo (TTE) Complete Echocardiography Routine Acute Lyme disease Pulmonary HTN (Multi) NSVT (nonsustained ventricular tachycardia) (Multi) Expected: 08/16/2024 (Approximate), Expires: 08/16/2026 [facility] Work Phone: Comment on above: Expected: 08/16/2024 (Approximate), Expires: 08/16/2026 Start: 08-16-2024 End: 08-16-2024 Patient encounter procedure 08/16/2024 11:15 AM EST Office Visit [facility] [address] [place] [address] Milan Reid MD [address] [place] [address] [facility] Start: 05-27-2024 Influenza vaccination [facility] Start: 05-02-2024 End: 05-02-2024 Patient encounter procedure 05/02/2024 10:40 AM EDT Office Visit [place] [address] [facility] [address] [place] [address] Akaknsha Millan MD [address] [place] [address] [facility] Start: 03-26-2024 End: 03-26-2025 C reactive protein [Mass/volume] in Serum or Plasma C-Reactive Protein Lab Routine Viral illness Anemia, unspecified type Myalgia Expected: 03/26/2024 (Approximate), Expires: 03/26/2025 [facility] Work Phone: Comment on above: Expected: 03/26/2024 (Approximate), Expires: 03/26/2025 Start: 03-26-2024 End: 03-26-2025 CBC W Auto Differential panel - Blood CBC and Auto Differential Lab Routine Viral illness Anemia, unspecified type Myalgia Expected: 03/26/2024 (Approximate), Expires: 03/26/2025 [facility] Service Area Work Phone: Comment on above: Expected: 03/26/2024 (Approximate), Expires: 03/26/2025 Start: 03-26-2024 End: 03-26-2025 Comprehensive metabolic 2000 panel - Serum or Plasma Comprehensive Metabolic Panel Lab Routine Viral illness Anemia, unspecified type Myalgia Expected: 03/26/2024 (Approximate), Expires: 03/26/2025 [facility] Work Phone: Comment on above: Expected: 03/26/2024 (Approximate), Expires: 03/26/2025 Start: 03-26-2024 End: 03-26-2025 Erythrocyte sedimentation rate Sedimentation Rate Lab Routine Viral illness Anemia, unspecified type Myalgia Expected: 03/26/2024 (Approximate), Expires: 03/26/2025 [facility] Work Phone: Comment on above: Expected: 03/26/2024 (Approximate), Expires: 03/26/2025 Start: 03-26-2024 End: 03-26-2025 Ferritin [Mass/volume] in Serum or Plasma Ferritin Lab Routine Viral illness Anemia, unspecified type Myalgia Expected: 03/26/2024 (Approximate), Expires: 03/26/2025 [facility] Work Phone: Comment on above: Expected: 03/26/2024 (Approximate), Expires: 03/26/2025 Start: 03-26-2024 End: 03-26-2025 LYME (B. BURGDORFERI) AB MODIFIED 2-TITER TESTING, WITH REFLEX TO IGM AND IGG BY ROCÍO LYME (B. BURGDORFERI) AB MODIFIED 2-TITER TESTING, WITH REFLEX TO IGM AND IGG BY ROCÍO Lab Routine Viral illness Anemia, unspecified type Myalgia Expected: 03/26/2024 (Approximate), Expires: 03/26/2025 [facility] Work Phone: Comment on above: Expected: 03/26/2024 (Approximate), Expires: 03/26/2025 Start: 03-16-2024 End: 03-16-2025 CBC W Auto Differential panel - Blood [facility] Service Area Work Phone: Comment on above: Expected: 03/16/2024 (Approximate), Expires: 03/16/2025 Start: 03-16-2024 End: 03-16-2025 Comprehensive metabolic 2000 panel - Serum or Plasma [facility] Work Phone: Comment on above: Expected: 03/16/2024 (Approximate), Expires: 03/16/2025 Start: 02-21-2024 End: 02-21-2024 Patient encounter procedure 02/21/2024 1:15 PM EDT Appointment [facility] [address] [place] [address] [facility] Start: 02-09-2024 End: 02-09-2024 Patient encounter procedure 02/09/2024 10:30 AM EDT Office Visit [facility] [address] [place] [address] Rogers Bradley, [address] [facility] [address] [place] [address] [facility] Start: 12-27-2023 Zoster Vaccines (3 o f 3) Zoster Vaccines (3 of 3) [facility] Start: 12-20-2023 End: 12-19-2024 CBC W Auto Differential panel - Blood CBC and Auto Differential Lab Routine Rheumatoid arthritis with negative rheumatoid factor, involving unspecified site (CMS/HCC) Fatigue, unspecified type Expected: 12/20/2023 (Approximate), Expires: 12/19/2024 [facility] Service Area Work Phone: Comment on above: Expected: 12/20/2023 (Approximate), Expires: 12/19/2024 Start: 12-20-2023 End: 12-19-2024 Cobalamin (Vitamin B12) [Mass/volume] in Serum or Plasma Vitamin B12 Lab Routine Fatigue, unspecified type Vitamin B12 deficiency Expected: 12/20/2023 (Approximate), Expires: 12/19/2024 [facility] Work Phone: Comment on above: Expected: 12/20/2023 (Approximate), Expires: 12/19/2024 Start: 12-20-2023 End: 12-19-2024 Comprehensive metabolic 2000 panel - Serum or Plasma Comprehensive Metabolic Panel Lab Routine Rheumatoid arthritis with negative rheumatoid factor, involving unspecified site (CMS/HCC) Fatigue, unspecified type Hyperlipemia, mixed Pulmonary hypertension (CMS/HCC) Vitamin B12 deficiency Expected: 12/20/2023 (Approximate), Expires: 12/19/2024 [facility] Work Phone: Comment on above: Expected: 12/20/2023 (Approximate), Expires: 12/19/2024 Start: 12-20-2023 End: 02-18-2025 DBT Breast - bilateral BI mammo bilateral screening tomosynthesis Imaging Routine Breast cancer screening by mammogram Expected: 12/20/2023, Expires: 02/18/2025 [facility] Work Phone: Comment on above: Expected: 12/20/2023 , Expires: 02/18/2025 Start: 12-20-2023 End: 12-19-2024 Lipid 1996 panel - Serum or Plasma Lipid Panel Lab Routine Hyperlipemia, mixed Expected: 12/20/2023 (Approximate), Expires: 12/19/2024 [facility] Work Phone: Comment on above: Expected: 12/20/2023 (Approximate), Expires: 12/19/2024 Start: 12-20-2023 End: 12-20-2023 Patient encounter procedure 12/20/2023 9:20 AM EDT Office Visit [facility] [address] [place] [id number] Akanksha Millan MD [address] [place] [address] [facility] Start: 12-19-2023 Medicare Annual Wellness Visit Medicare Annual Wellness Visit (AWV) [facility] Start: 12-19-2023 End: 12-19-2023 Patient encounter procedure [facility] Start: 08-25-2023 End: 08-25-2025 US Heart Transthoracic Transthoracic Echo (TTE) Complete Echocardiography Routine Irregular heartbeat Syncope and collapse Expected: 08/25/2023 (Approximate), Expires: 08/25/2025 [facility] Service Area Work Phone: Comment on above: Expected: 08/25/2023 (Approximate), Expires: 08/25/2025 Start: 08-25-2023 FUV, Provider: Milan Reid, Status: [place], Time: 10:30 AM FUV, Provider: Milan Reid, Status: Jarrell, Time: 10:30 AM AD-Vvymorxvzb-Xonx and [address] Work Phone: Start: 05-27-2023 COVID-19 Vaccine () COVID-19 Vaccine () [facility] Start: 05-27-2023 COVID-19 Vaccine () COVID-19 Vaccine () [facility] Start: 05-27-2023 Influenza vaccination Influenza Vacc ine (#1) [facility] Start: 02-18-2023 End: 02-17-2024 BI mammo bilateral screening tomosynthesis BI mammo bilateral screening tomosynthesis Imaging Routine Breast screening Breast cancer screening by mammogram Expected: 02/18/2023, Expires: 02/17/2024 [facility] Service Area Work Phone: Comment on above: Expected: 02/18/2023 , Expires: 02/17/2024 Start: 02-10-2023 Screening for osteoporosis Bone Density Scan [facility] Start: 02-10-2023 FUV, Provider: Rogers Bradley, Status: Jarrell, Time: 10:30 AM FUV, Provider: Rogers Bradley, Status: Pen, Time: 10:30 AM CS-[id number]-Sdmf and [address] Work Phone: Start: 12-17-2022 End: 12-18-2023 Cobalamin (Vitamin B12) [Mass/volume] in Serum or Plasma Vitamin B12 Lab Routine Vitamin B12 deficiency Fatigue, unspecified type Expected: 12/17/2022 (Approximate), Expires: 12/18/2023 [facility] Work Phone: Comment on above: Expected: 12/17/2022 (Approximate), Expires: 12/18/2023 Start: 12-17-2022 End: 12-18-2023 Comprehensive metabolic 2000 panel - Serum or Plasma Comprehensive Metabolic Panel Lab Routine Hyperlipemia, mixed Fatigue, unspecified type Expected: 12/17/2022 (Approximate), Expires: 12/18/2023 [facility] Work Phone: Comment on above: Expected: 12/17/2022 (Approximate), Expires: 12/18/2023 Start: 12-17-2022 End: 12-18-2023 Lipid 1996 panel - Serum or Plasma Lipid Panel Lab Routine Hyperlipemia, mixed Expected: 12/17/2022 (Approximate), Expires: 12/18/2023 [facility] Work Phone: Comment on above: Expected: 12/17/2022 (Approximate), Expires: 12/18/2023 Start: 12-17-2022 End: 12-18-2023 Thyrotropin [Units/volume] in Serum or Plasma Thyroid Stimulating Hormone Lab Routine Fatigue, unspecified type Expected: 12/17/2022 (Approximate), Expires: 12/18/2023 [facility] Work Phone: Comment on above: Expected: 12/17/2022 (Approximate), Expires: 12/18/2023 Start: 12-15-2022 Patient encounter procedure MCRANNUAL, Provider: Akanksha Millan, Status: Pen, Time: 10:00 AM [facility] Work Phone: Start: 08-13-2022 COVID-19 Vaccine (4 - Moderna series) COVID-19 Vaccine (4 - Moderna series) [facility] Start: 08-12-2022 FUV, Provider: Rogers Bradley, Status: Pen, Time: 10:00 AM FUV, Provider: Rogers Bradley, Status: Pen, Time: 10:00 AM [facility] Work Phone: Start: 08-11-2022 FUV, Provider: Milan Reid, Status: Pen, Time: 11:15 AM FUV, Provider: Milan Reid, Status: Pen, Time: 11:15 AM [facility] Work Phone: Start: 05-13-2022 FUV, Provider: Rogers Bradley, Status: Pen, Time: 10:00 AM FUV, Provider: Rogers Bradley, Status: Pen, Time: 10:00 AM [facility] [address] Work Phone: Start: 02-11-2022 NPV, Provider: Rogers Bradley, Status: Pen, Time: 2:00 PM NPV, Provider: Rogers Bradley, Status: Pen, Time: 2:00 PM [facility] Work Phone: Start: 12-08-2021 Patient encounter procedure MCRANNUAL, Provider: Akanksha Millan, Status: Pen, Time: 10:00 AM [facility] [employer] Work Phone: Start: 08-18-2021 FUV, Provider: Milan Reid, Status: Pen, Time: 3:00 PM FUV, Provider: Milan Reid, Status: Pen, Time: 3:00 PM [facility] [employer] Work Phone: Start: 08-12-2021 FUV, Provider: Milan Reid, Status: Pen, Time: 11:15 AM FUV, Provider: Milan Reid, Status: Pen, Time: 11:15 AM XM-Buvcuemfup-Rdjj and [address] Work Phone: Start: 11-23-2012 Zoster Vaccines (2 o f 3) Zoster Vaccines (2 of 3) [facility] Start: 1967 DTaP/Tdap/Td Vaccine s (1 - Tdap) DTaP/Tdap/Td Vaccines (1 - Tdap) [facility] Start: 1963 Hepatitis C screening Hepatitis C [facility] Start: 1945 Lipid panel Lipid Panel [facility] Start: 1945 Medicare Annual Wellness Visit Medicare Annual Wellness Visit (AWV) [facility] End: 10-30-2024 DBT Breast - bilateral diagnostic [facility] Service Area Work Phone: Comment on above: Once for 1 Occurrenc es starting 10/30/2024 until 10/30/2024 End: 03-28-2024 ECG 12 lead [facility] Service Area Work Phone: Comment on above: Once for 1 Occurrenc es starting 03/28/2024 until 03/28/2024 End: 03-28-2024 Extra Urine Douglas Tube [facility] Work Phone: Comment on above: Once for 1 Occurrenc es starting 03/28/2024 until 03/28/2024 End: 08-30-2024 Holter monitor study [facility] Service Area Work Phone: Comment on above: Once for 1 Occurrenc es starting 08/30/2024 until 08/30/2024 MG Breast screening Mamm - Scree bal Mammogram w/ Tomosynthesis [facility] Work Phone: Comment on above: After 07Jan2020 Patient Education ED BPV Vertigo [facility] Work Phone: Patient referral [facility] Work Phone: End: 03-28-2024 Urinalysis complete W Reflex Culture panel - Urine [facility] Work Phone: Comment on above: Once (Lab) for 1 Occ urrences starting 03/28/2024 until 03/28/2024 [facility] Work Phone: NEGATED: Highlighted row has been ruled out! Planned Goals not documented [facility] Work Phone: Immunizations Immunization Date Immunization Notes Care Provider Martin boyer 07-19-2024 Pfizer COVID-19 vaccine, 12 years and older, (30mcg/0.3mL) (Comirnaty) Aileen Waverly DO Work Phone: [facility] Work Phone: 07-19-2024 Seasonal trivalent influenza vaccine, adjuvanted, preservative free Aileen Waverly DO Work Phone: [facility] Work Phone: 07-19-2024 influenza virus vaccine, unspecified formulation Akanksha Millan MD Work Phone: [facility] Work Phone: 01-05-2024 zoster vaccine recombinant Aileen Waverly DO Work Phone: [facility] Work Phone: 11-01-2023 zoster vaccine recombinant Aileen Waverly DO Work Phone: [facility] Work Phone: 07-05-2023 RESPIRATORY SYNCYTIA L VIRUS (RSV), ELIGIBLE PTS, 0.5 ML (ABRYSVO) Aileen Waverly DO Work Phone: [facility] Work Phone: 07-01-2022 Influenza, Seasonal, Quadrivalent, Adjuvanted Aileen Waverly DO Work Phone: [facility] Work Phone: 07-01-2022 influenza virus vaccine, unspecified formulation Milan Reid MD Work Phone: [facility] Work Phone: 06-18-2022 Pfizer COVID-19 vaccine, bivalent, age 12 years and older (30 mcg/0.3 mL) Aileen Waverly DO Work Phone: [facility] 01-29-2022 Pfizer Douglas Cap SARS-CoV-2 Aileen Waverly DO Work Phone: [facility] Work Phone: 08-11-2021 Moderna COVID-19 Vaccine 100 MCG/0.5ML Intramuscular Suspension Akanksha Millan Work Phone: [facility] Comment on above: Series: 06-30-2021 influenza, seasonal, injectable Akanksha Millan Work Phone: [facility] Work Phone: Comment on above: Series: 11-19-2020 Moderna COVID-19 Vaccine 100 MCG/0.5ML Intramuscular Suspension Akanksha Millan Work Phone: [facility] Comment on above: Series: 10-22-2020 Moderna COVID-19 Vaccine 100 MCG/0.5ML Intramuscular Suspension Akanksha Millan Work Phone: [facility] Comment on above: Series: 07-01-2020 Flu vaccine, quadrivalent, high-dose, preservative free, age 65y+ (FLUZONE) Aileen Waverly DO Work Phone: [facility] Work Phone: 07-01-2020 influenza, seasonal, injectable Akanksha Millan Work Phone: [facility] [employer] Work Phone: Comment on above: Series: 07-11-2019 influenza, high dose seasonal, preservative-free Aileen Waverly DO Work Phone: [facility] Work Phone: 07-11-2019 influenza, seasonal, injectable Akanksha Millan -[facility] Work Phone: Comment on above: Series: 03-06-2018 pneumococcal polysaccharide vaccine, 23 valent Akanksha Millan Work Phone: [facility] [employer] Work Phone: Comment on above: Series: 03-06-2018 pneumococcal polysaccharide vaccine, 23 valent Akanksha Millan [facility] Work Phone: 11-12-2015 pneumococcal conjuga te vaccine, 13 valent Akanksha Millan [facility] [facility] Work Phone: Comment on above: Series: 09-28-2012 pneumococcal polysaccharide vaccine, 23 valent Akanksha Millan -[facility] [employer] [facility] Work Phone: Comment on above: Series: 09-28-2012 zoster vaccine, live Akanksha rankin [facility] Work Phone: Comment on above: Series: 09-28-2012 pneumococcal polysaccharide vaccine, 23 valent Akanksha Millan [facility] Work Phone: 09-26-2012 pneumococcal polysaccharide vaccine, 23 valent Akanksha Millan Work Phone: [facility] [employer] Work Phone: Comment on above: Series: 09-11-2009 novel [id number], preservative-free, injectable Akanksha Millan Work Phone: [facility] Work Phone: 08-08-2007 influenza virus vaccine, whole virus Akanksha Millan Work Phone: [facility] Work Phone: Payers Date Payer Category Payer Self-pay [id number] 2021 Medicare [employer] MEDICARE A ETONEYDA FISHER MEDICARE [id number] 2021-Present [address] [place] [address] [id number] 2021 Medicare (Managed Care) [employer] GO [facility] MEDICARE [id number] 2012 Private Health Insurance [facility] [id number] 1945 Unknown [id number] 2.16.840.1.827722.3.579.2. 651 1945 Unknown [id number] 2.16.840.1.435560.3.579.2. 1069 1945 Unknown [id number] 2.16.840.1.507481.3.579.2. 1244 1945 Unknown [id number] 2.16.840.1.083471.3.579.2. 124 1945 Unknown [id number] 2..840.1.132192.3.579.2. 1244 1945 Unknown [id number] 2.16.840.1.339252.3.579.2. 1244 1945 Unknown [id number] 2.840.1.516707.3.579.2. 1242 1945 Unknown [id number] 2.840.1.275499.3.579.2. 1242 1945 Unknown [id number] 2.840.1.689323.3.579.2. 1242 1945 Unknown [id number] 2.840.1.026722.3.579.2. 1242 1945 Unknown [id number] 2.840.1.108839.3.579.2. 1242 1945 Unknown [id number] 2.840.1.099810.3.579.2. 1242 1945 Unknown [id number] 2.16840.1.446887.3.579.2. 1242 1945 Unknown [id number] 2.16840.1.175291.3.579.2. 1242 1945 Unknown [id number] 2.16840.1.585508.3.579.2. 4 1945 Unknown [id number] 2.16.840.1.533432.3.579.2. 1244 1945 Unknown [id number] 2.16.840.1.792128.3.579.2. 1244 1945 Unknown [id number] 2.16.840.1.534634.3.579.2. 1244 1945 Unknown [id number] 2.16.840.1.820260.3.579.2. 1244 1945 Unknown [id number] 2.16.840.1.669881.3.579.2. 1244 Private Health Insurance MEB GQCGT Unknown [employer] Unknown [id number] 2.16.840.1.010695.3.579.2. 462 Unknown [id number] 2.16.840.1.904483.3.579.2. 462 Unknown [id number] 2.16.840.1.763337.3.579.2. 462 Unknown [id number] 2.16.840.1.042917.3.579.2. 462 Unknown [id number] 2.16.840.1.082796.3.579.2. 462 Social History Date Type Detail Facility Assertion Tobacco smoking consumption unknown (finding) [facility] Work Phone: Start: 12-17-2022 End: 12-20-2024 Patient has healthcare proxy and living will Patient has healthcare proxy and living will [facility] Start: 06-06-2021 End: 09-05-2022 Tobacco smoking status NHIS Unknown if ever smoked [facility] Start: 1945 Sex Assigned At Female W [facility] Start: 08-25-2023 End: 04-05-2024 Tobacco smoking status NHIS Never smoked tobacco [facility] Work Phone: Start: 12-17-2022 End: 08-25-2023 Tobacco use and exposure Smokeless tobacco non-user [facility] Work Phone: Start: 08-25-2023 End: 05-16-2025 Alcohol intake Ex-drinker (finding) [facility] Work Phone: Start: 12-17-2022 End: 12-20-2024 Tobacco use panel [facility] Start: 1945 [facility] Start: 12-07-2022 End: 02-07-2025 Exposure to SARS-CoV-2 (event) Not sure [facility] Start: 12-17-2022 Alcohol intake Lifetime non-d riddhi (finding) [facility] Work Phone: Start: 08-21-2022 Sex Female [facility] NEGATED: Highlighted row Denies Consumes alcohol occasionally Denies Consumes alcohol occasionally [facility] Work Phone: NEGATED: Highlighted rowStart: NINF History of tobacco use Passive smoker [facility] Work Phone: Functional Status Date Assessment Result Facility NEGATED: Highlighted row Functional performance Functional status health issues are not documented [facility] Work Phone: Mental Status Date Assessment Result Facility 09-05-2022 Cognitive function Level Of Cons ciousness Awake;Alert;Appropriate [facility] Work Phone: NEGATED: Highlighted row Cognitive function [Interpretation] Cognitive status health issues are not documented Disease [facility] Work Phone: Clinical Notes 01-30-2020 to 05-23-2025 Akanksha Millan MD - 05/16/2025 4:40 PM Aleyda Bradley DO - 02/07/2025 10:00 AM EDTAssessment & Plan Note - Akanksha Millan MD - 12/20/2024 10:00 AM EDTPatient Instructions Note Date & Type Note Facility 05-23-2025 Radiology Diagnostic study note [facility] Imaging Services [address] [place] [address] Knee 4 or More Views MR#: [id number] Acct: [id number] Name: KIM ROCHA Rep #: [id number] : 1945 F 80 From: Brunilda Ac MD PCP: Dr. Rashid Millan MD Status: [facility] CLI Study:Knee 4 or More Views Date of Exam: 05/23/25 Exam# [id number] Ordering Dr: Lety Marcelo MD PROCEDURE: KNEE [...] Moderately severe medial compartment osteoarthrosis. Reading Location: [facility] CC: Dr. Rashid Millan MD; Dr. Lety Marcelo MD ~ Ship Erector: Signed [facility] 05-23-2025 Radiology Diagnostic study note [facility] Imaging Services [address] [place] [id number] Knee 4 or More Views MR#: [id number] Acct: [id number] Name: KIM ROCHA Rep #: [id number] : 1945 F 80 From: Brunilda Ac MD PCP: Dr. Rashid Millan MD Status: RE CLI Study:Knee 4 or More Views Date of Exam: 05/23/25 Exam# [id number] Ordering Dr: Lety Marcelo MD PROCEDURE: KNEE [...] 2. Mild-moderate knee joint effusion. Reading Location: [facility] CC: Dr. Rashid Millan MD; Dr. Lety Marcelo MD ~ Ship Erector: Signed [facility] 05-16-2025 History of Presen t illness [...] with any problems. documented in this encounter [facility] Work Phone: 02-07-2025 History of Presen t [...] She does request referral to a new production stage manager she is seeming to have less ability to interact with her current production stage manager and wishes a second opinion regarding management [...] 02/07/25 10:22 AM documented in this encounter [facility] Work Phone: 12-20-2024 Evaluation + Plan note Associated Problem(s): Rheumatoid arthritis Follows with rheumatology, maintained on methotrexate Orders: Follow Up In Primary Care - Established Follow Up In Primary Care - [facility]; Future [facility] Work Phone: 12-20-2024 Evaluation + Plan note Associated Problem(s): Hyperlipemia, mixed Orders: Follow Up In Primary Care - Established Follow Up In Primary [facility]; Future [facility] Work Phone: 12-20-2024 Evaluation + Plan note Associated Problem(s): Pulmonary hypertension (Multi) Currently asymptomatic is seen cardiology in the past year, has no signs or symptoms of active issues. Orders: Follow Up In Primary Care - [facility] Follow Up In [facility]; Future [facility] Work Phone: 12-20-2024 Evaluation + Plan note Associated Problem(s): Vitamin B12 deficiency Will check B12 levels. Orders: Follow Up In Primary [facility] Follow Up In [facility]; Future CBC and Auto Differential; Future Vitamin B12; Future [facility] Work Phone: 12-20-2024 Evaluation + Plan note Associated Problem(s): Irritable bowel syndrome (IBS) Uses dicyclomine very infrequently, does seem to help when used. Orders: Follow Up In Primary Care [facility] dicyclomine (Bentyl) 10 mg capsule; Take 1 capsule (10 mg) by mouth 4 times a day. Follow Up In Primary [facility]; Future [facility] Work Phone: 12-20-2024 History of Presen t [...] Differential; Future Follow Up In Primary Care [facility]; Future Rheumatoid arthritis with negative rheumatoid factor, involving unspecified site (Multi) Follows with rheumatology, maintained on methotrexate Orders: Follow Up In [facility] Follow Up In [facility]; Future Fatigue, unspecified type Orders: Follow Up In Primary [facility] Follow Up In [facility]; Future TSH with reflex to Free T4 if abnormal; Future Sedimentation Rate; Future C-Reactive Protein; Future Routine general medical examination at health care facility Orders: Follow Up In [facility] Follow Up In [facility]; Future Hyperlipemia, mixed Orders: Follow Up In Primary Care [facility] Follow Up In [facility]; Future Pulmonary hypertension (Multi) Currently asymptomatic is seen cardiology in the past year, has no signs or symptoms of active issues. Orders: Follow Up In [facility] Follow Up In [facility]; Future Vitamin B12 deficiency Will check B12 levels. Orders: Follow Up In Primary [facility] Follow Up In [facility]; Future CBC and Auto Differential; Future [...] 2-3 views; Future documented in this encounter [facility] Work Phone: 12-20-2024 Instructions Akanksha Millan MD - 12/20/2024 10:00 AM EDT It is OK to use some magnesium supplement, get blood testing today and x-ray documented in this encounter [facility] Work Phone: 12-20-2024 Miscellaneous Notes Please send a copy of this patient's lab work that was done on 01 May to the patient's production stage manager. Please also let the patient know that [...] Orders: Follow Up In Primary Care - [facility] Follow Up In Primary Care [facility]; Future Associated Problem(s): Pulmonary hypertension (Multi) Currently asymptomatic is seen cardiology in the past year, has no signs or symptoms of active issues. Orders: Follow Up In Primary Care - [facility] Follow Up In [facility] Care [facility]; Future Associated Problem(s): Vitamin B12 deficiency Will check B12 levels. Orders: Follow Up In Primary Care - [facility] Follow Up In Primary [facility]; Future CBC and Auto Differential; Future Vitamin B12; Future Associated Problem(s): Irritable bowel syndrome (IBS) Uses dicyclomine very infrequently, does seem to help when used. Orders: Follow Up In Primary Care Established dicyclomine (Bentyl) 10 mg capsule; Take 1 capsule (10 mg) by mouth 4 times a day. Follow Up In Primary Care [facility]; Future documented in this encounter [facility] Work Phone: 12-20-2024 Progress note Formatting of t his note might be different from the original. Please send a copy of this patient's lab work that was done on 01 May to the patient's production stage manager. Please also let the patient know that her blood testing looks good, hemoglobin is stable, platelets are normal, liver function testing is also back to normal and inflammation markers are normal. [facility] Work Phone: 12-20-2024 Reason for visit Narrative Specialty Diagnoses / Procedures Referred By Contac t Referred To Contact Radiology Diagnoses Left leg pain Procedures XR lumbar spine 2-3 views Akanksha Millan MD [facility] [address] Phone: tel: fax: Referral ID Status Reason Start Date Expiration Date Visits Requested Visits Authorized [id number] Authorized Perform Procedure 12/20/2024 12/20/2025 1 1 [facility] Work Phone: [phone]) [phone] Evaluation + Plan note* Assessment & Plan [...] results are known we will contact her [facility] Work Phone: [phone]) [phone] Miscellaneous Notes* Assessment & Plan Note - [...] we will contact her documented in this [facility] Work Phone: [phone] History of Present illness Narrative* Aileen Shoemaker [...] follow-up Aileen Shoemaker DO documented in this [facility] Work Phone: [phone] Instructions* Patient Instructions* Aileen Shoemaker DO - [...] seen sooner for follow-up [facility]: [phone] History of Present illness Narrative* Milan Reid [...] (81 mg) by mouth once daily. Ca-D3-mag ns-qjxo-cfy-nicole-bor 600 mg calcium- 20 mcg-50 mg tablet [...] Transthoracic Echo (TTE) Complete Result Date: 09/06/2023 [place] [address] [id number], TRANSTHORACIC ECHOCARDIOGRAM REPORT Patient Name: KIM De Luna Physician: [id number] Reid MD Study Date: 09/06/2023 Ordering Provider: [id number] REID MRN/PID: [id number] Fellow: Nurse: Sweta Mcmahan RN Date of 1945 [employer] Operator: Tommie Marcos RDCS /Age: years Gender: F Additional Staff: Height: 167.64 cm Admit Date: Weight: 63.96 kg Admission Status: Outpatient BSA: 1.72 m2 Department [facility] Echo Lab Location: Blood Pressure: 174/102 mmHg Study Type: TRANSTHORACIC ECHO (TTE) COMPLETE Diagnosis/ICD: Syncope-R55 CPT Codes: Echo Complete w Full Doppler-64044 Study Detail: The following Echo studies were [...] LA Area A2C: 12.4 cm2 LA [place] A4C: 5.0 cm LA [place] A2C: 4.6 cm LA Volume Index: 23.5 [...] TAPSE: 22.7 mm RV s' 0.13 m/s [id number] Milan Reid MD Electronically signed on 09/06/2023 [...] and clinical correlation Confirmed by Dawson Castorena ([id number]) on 04/05/2024 8:44:00 PM Impression Kim Rocha [...] Reid MD Advanced Heart Failure/Transplant Cardiology Cardio-Oncology [facility] documented in this [facility] Work Phone: 1([phone]) 752-561607-16-2024 Evaluation + Plan note* Assessment & Plan [...] chills, and encouraged to follow-up with her production stage manager. Will recheck again in 3 weeks. [facility] Work Phone: [phone]) 900-983207-16-2024 Miscellaneous Notes* Assessment & Plan Note - [...] chills, and encouraged to follow-up with her production stage manager. Will recheck again in 3 weeks. [facility] 1([phone]) 134-453207-16-2024 History of Present illness Narrative* Akanksha Millan MD - 04/10/2024 4:20 PM EDT Subjective Patient ID: Kim Rocha is a 78 y.o. female who presents for ER F/U Neck PAIN. HPI Was at hospital at [place] 04/05 for LBP (arthritis in spine) Review [...] chills, and encouraged to follow-up with her production stage manager. Will recheck again in 3 weeks. Relevant Medications doxycycline (Vibramycin) 100 mg capsule oxyCODONE-acetaminophen (Percocet) 5-325 mg tablet Other Relevant Orders Follow Up In Primary Care - Established [facility] Phone: 1(900) 613-759307-03-2024 Hospital Discharge instructions* Discharge Instructions* Lorenza Carver MD - 03/28/2024 1:38 PM EDT CONTINUE TYLENOL AND NAPROSYN FOR PAIN ICE TO NECK PREDNISONE FOR INFLAMMATION CO-ORDINATE PAIN TREATMENT WITH RHEUMATOLOGY/PAIN MANAGEMENT DO NOT DRINK PLAIN WATER/ USE ELECTROLYTE SOLUTION * Attachments The following attachments cannot be sent through Care Everywhere. * Radiculopathy Discharge Instructions (Telugu) * Rheumatoid Arthritis Discharge Instructions (Telugu) [facility] Work Phone: [phone] 451-342707-03-2024 Emergency department Note* Lorenza Carver MD - [...] Dr. Millan her primary care physician her production stage manager and pain management referral Review of Systems [...] Urine Colorless (*) Appearance, Urine Clear Specific [place], Urine 1.008 pH, Urine 7.0 Protein, Urine [...] Abnormality Status --------- ------ Urinalysis with Reflex C...[[id number]] Abnormal Final result Extra Urine Douglas Tube[[id number]] In process Please view results for these tests on the individual orders. EXTRA URINE DOUGLAS TUBE XR cervical spine 2-3 views Final Result 1. Degenerative change with no acute bony abnormality. 2. 2 mm retrolisthesis of C5 with respect to C4 and C6. MACRO: None Signed by: Susy Nance 03/28/2024 11:48 AM Dictation workstation: [id number] Procedures Medical Decision Making This patient's differential [...] Carver MD 03/28/24 1341 documented in this [facility] Work Phone: [phone]) 311-540807-03-2024 Physician Emergency department Note* Lorenza Carver MD [...] Dr. Millan her primary care physician her production stage manager and pain management referral Review of Systems [...] Urine Colorless (*) Appearance, Urine Clear Specific [place], Urine 1.008 pH, Urine 7.0 Protein, Urine [...] Abnormality Status --------- ------ Urinalysis with Reflex C...[[id number]] Abnormal Final result Extra Urine Douglas Tube[[id number]] In process Please view results for these tests on the individual orders. EXTRA URINE DOUGLAS TUBE XR cervical spine 2-3 views Final Result 1. Degenerative change with no acute bony abnormality. 2. 2 mm retrolisthesis of C5 with respect to C4 and C6. MACRO: None Signed by: Susy Nance 03/28/2024 11:48 AM Dictation workstation: [id number] Procedures Medical Decision Making This patient's differential [...] Water intoxication Lorenza Carver MD 03/28/24 1341 [facility] Work Phone: 1(348) 261-894807-01-2024 History of Present illness Narrative* Akanksha Millan [...] next 1 to 2 days, follow-up with production stage manager. Relevant Medications cyclobenzaprine (Flexeril) 10 mg tablet Other Relevant Orders CBC and Auto Differential Comprehensive Metabolic Panel C-Reactive Protein Sedimentation Rate Ferritin LYME (B. BURGDORFERI) AB MODIFIED 2-TITER TESTING, WITH REFLEX TO IGM AND IGG BY ROCÍO documented [facility] Work Phone: [phone]) 197-293507-01-2024 Instructions* Patient Instructions* Akanksha Millan MD - 03/26/2024 4:20 PM EDT Use cyclobenzaprine at night before sleep, use tylenol up to 3000 mg a day, and try using 1-2 Aleveat night before sleep [facility] Work Phone: [phone] Hospital Discharge instructions* Discharge Instructions* Ashley Miller MD - 03/16/2024 11:35 PM EDT Please feel free to return to the emergency department with any concerns. Your low platelets today are likely caused by a reagent in the collecting tube. [facility] Work Phone: [phone]) 839-765806-21-2024 Emergency department Note* Ashley Miller MD - 03/16/2024 9:15 PM EDT Images from the original note were not included. 78-year-old female presents for evaluation after new onset thrombocytopenia. She had a syncopal episode 3 days ago and was seen at [facility]. She had a follow-up visit with her PCP Dr. Millan today and lab buddies were drawn and her platelets were 26. Reportedly 3 days ago during the syncope workup at [place] her platelets were normal. She is otherwise [...] 3 days ago and was seen at [facility]. She had a follow-up visit with her PCP Dr. Millan today and lab buddies were drawn and her platelets were 26. Reportedly 3 days ago during the syncope workup at [place] her platelets were normal. She is otherwise essentially asymptomatic. She denies any bleeding. I was able to secure the labs from [facility]. The platelets were actually 104. Repeat platelets today in the ER were 174. She remains asymptomatic. Likely pseudothrombocytopenia and the patient can be discharged. I did give her 12 mg dexamethasone for her rash. DDx: ITP, TTP, pseudothrombocytopenia, HELLLP syndrome Diagnoses as of 03/16/242336 Pseudothrombocytopenia Ashley Miller MD 03/16/242336 documented in this [facility] Work Phone: [phone]) 183-180906-21-2024 Physician Emergency department Note* Ashley Miller MD - 03/16/2024 9:15 PM EDT Images from the original note were not included. 78-year-old female presents for evaluation after new onset thrombocytopenia. She had a syncopal episode 3 days ago and was seen at [facility]. She had a follow-up visit with her PCP Dr. Millan today and lab buddies were drawn and her platelets were 26. Reportedly 3 days ago during the syncope workup at [place] her platelets were normal. She is otherwise [...] 3 days ago and was seen at [facility]. She had a follow-up visit with her PCP Dr. Millan today and lab buddies were drawn and her platelets were 26. Reportedly 3 days ago during the syncope workup at [place] her platelets were normal. She is otherwise essentially asymptomatic. She denies any bleeding. I was able to secure the labs from [facility]. The platelets were actually 104. Repeat platelets today in the ER were 174. She remains asymptomatic. Likely pseudothrombocytopenia and the patient can be discharged. I did give her 12 mg dexamethasone for her rash. DDx: ITP, TTP, pseudothrombocytopenia, HELLLP syndrome Diagnoses as of 03/16/247 Pseudothrombocytopenia Ashley Miller MD 03/16/24 9705 [facility] Work Phone: [phone]) 690-858006-21-2024 History of Present illness Narrative* Akanksha Millan [...] and woozy feeling Pain around eyes and sabianist area, gradually feeling better, dry mouth and [...] - Primary B34.9 Gradually improving, advised but lmba-bfe-bvpujat, call if worse. Relevant Orders CBC and Auto Differential Elevated liver function tests R79.89 Recheck blood test increase fluids. Relevant Orders CBC and Auto Differential Comprehensive Metabolic Panel documented in [facility] Work Phone: [phone] Instructions* Patient Instructions* Akanksha Millan MD - 03/16/2024 1:40 PM EDT Increase fluids, tylenol or ibuprofen as needed for pain documented in [facility] Work Phone: [phone] History of Present illness Narrative* Rogers Bradley DO - 02/09/2024 10:30 AM EDT [...] DO 02/09/24 10:48 AM documented in [facility] Work Phone: [phone]) 144-857403-26-2024 Evaluation + Plan note* Assessment & Plan Note - Akanksha Millan MD - 12/20/2023 12:36 PM EDTAssociated Problem(s): Hematuria Urine recheck normal. [facility] Work Phone: [phone]) 439-510003-26-2024 Evaluation + Plan note* Assessment & Plan Note - Akanksha Millan MD - 12/20/2023 12:36 PM EDTAssociated Problem(s): Rheumatoid arthritis (CMS/HCC) Follows with production stage manager on regular basis no longer on methotrexate due to concern about liver toxicity, joint pain seems to be stable currently rarely has to use prednisone. [facility] Work Phone: [phone]) [phone] Miscellaneous Notes* Assessment & Plan Note - Akanksha Millan MD - 12/20/2023 12:36 PM EDTAssociated Problem(s): Hematuria Urine recheck normal. * Assessment & Plan Note - Akanksha Millan MD - 12/20/2023 12:36 PM EDT Associated Problem(s): Rheumatoid arthritis (CMS/HCC) Follows with production stage manager on regular basis no longer on methotrexate [...] of breath with exertion. documented in this [facility] Work Phone: [phone]) [phone] Evaluation + Plan note* Assessment & Plan Note - Akanksha Millan MD - 12/20/2023 12:35 PM EDTAssociated Problem(s): Irritable bowel syndrome (IBS) Continue with fiber and as needed dicyclomine. [facility] Work Phone: [phone]) 307-390703-26-2024 Evaluation + Plan note* Assessment & Plan Note - Akanksha Millan MD - 12/20/2023 12:35 PM EDTAssociated Problem(s): Vitamin B12 deficiency Continue with replacement. [facility] Work Phone: [phone]) 162-310503-26-2024 Evaluation + Plan note* Assessment & Plan Note - Akanksha Millan MD - 12/20/2023 12:35 PM EDTAssociated Problem(s): Pulmonary hypertension (CMS/HCC) Echocardiogram done last year seem to be stable, he has no signs or symptoms of active issues, blood pressure under good control no evidence of peripheral edema or shortness of breath with exertion. [facility] Work Phone: [phone]) 633-175903-26-2024 History of Present illness Narrative* Akanksha Millan [...] Pulmonary hypertension ([facility]/HCC) Current Assessment & Plan Echocardiogram done last year seem to be stable, he has no signs or symptoms of active issues, blood pressure under good control no evidence of peripheral edema or shortness of breath with exertion. Relevant Orders Follow Up In Primary Care - Established Comprehensive Metabolic Panel Rheumatoid arthritis (CMS/HCC) Current Assessment & Plan Follows with production stage manager on regular basis no longer on methotrexate [...] mammo bilateral screening tomosynthesis documented in this [facility] Work Phone: [phone]) 925-402303-18-2024 History of Present illness Narrative* Leann Mckeon Prashanth, THOMAS-SUPERVISOR MAINTENANCE - 12/12/2023 1:40 PM EDT Subjective Patient [...] negative Stopped methotrexate/folic acid in Sep w/ production stage manager CMP Sep 2023: bun 17, creat 0.82, [...] factor present ([facility]) follows w/ rheumatology; + plaquenil. stopped MTX 3. Pulmonary hypertension (CMS/[facility]) 4. Hematuria, unspecified type POCT UA Automated manually resulted macrobid bid x5D; fantasma urine @ next OV end of mo. documented in [facility] Work Phone: 1([phone]) [phone] Instructions* Patient Instructions* EWA Guillen - 12/12/2023 1:40 PM EDT Macrodantin 100mg twice a day x 5 days Encourage you to remain hydrated Bring urine sample with you to your next appointment with dr. Millan (end of month) documented in this [facility]Mer[facility] Work Phone: [phone]) [phone] History of Present illness Narrative* Kevin Mcdermott [...] (Zithromax) 250 mg tablet documented in this [facility]Mer[facility] Work Phone: [phone]) 351-891711-30-2023 History of Present illness Narrative* Milan Reid [...] mouth 1 (one) time each day. Ca-D3-mag uv-mdmh-wss-nicole-bor 600 mg calcium- 20 mcg-50 mg tablet [...] with gabriela; 02/18/2023 11:07 am ACCESSION NUMBER(S): [id number] ORDERING CLINICIAN: AKANKSHA MILLAN INDICATION: Screening. COMPARISON: [...] Reid MD Advanced Heart Failure/Transplant Cardiology Cardio-Oncology [facility] documented in this [facility] Work Phone: [phone]) 262-426803-24-2023 Evaluation + Plan note* Assessment & Plan Note - Akanksha Millan MD - 12/17/2022 10:44 AM EDTAssociated Problem(s): Rheumatoid arthritis (CMS/HCC) Follows with rheumatology on a routine basis. [facility] Work Phone: [phone]) 279-211103-24-2023 Miscellaneous Notes* Assessment & Plan Note - Akaknsha Millan MD - 12/17/2022 10:44 AM EDTAssociated [...] systolic pressure of 40. documented in this [facility] Work Phone: [phone]) [phone] Evaluation + Plan note* Assessment & Plan Note - Akanksha Millan MD - 12/17/2022 10:43 AM EDTAssociated Problem(s): Irregular heartbeat No issues with palpitations, tolerating metoprolol, had an issue with vasovagal syncope in August, has had no further issues since. T [facility] Work Phone: [phone]) 404-857703-24-2023 Evaluation + Plan note* Assessment & Plan Note - Akanksha Millan MD - 12/17/2022 10:43 AM EDTAssociated Problem(s): Hyperlipemia, mixed Check blood testing when able. T [facility] Work Phone: [phone]) [phone] Evaluation + Plan note* Assessment & Plan Note - Akanksha Millan MD - 12/17/2022 10:43 AM EDTAssociated Problem(s): Vitamin B12 deficiency Check blood test when able. [facility] Work Phone: [phone]) 152-646703-24-2023 Evaluation + Plan note* Assessment & Plan Note - Akanksha Millan MD - 12/17/2022 10:43 AM EDTAssociated Problem(s): Pulmonary hypertension (CMS/HCC) Really having no symptoms, last echocardiogram done in 2020 revealed a right ventricular systolic pressure of 40. [facility] Work Phone: [phone]) [phone] History of Present illness Narrative* Akanksha Millan [...] about fluids and hydration. documented in this [facility] Work Phone: [phone]) [phone] History of Present illness Narrative* 75-year-old female [...] to be monomorphic * -Denies any palpitations. [facility] [address] Work Phone: [phone]) [phone] History of Present illness Narrative* 77-year-old female [...] photopsia in visual field (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) [facility] [address] Work Phone: Evaluation noteNo assessment information available [facility] Work Phone: Evaluation note* Diagnosis Syncope and collapse- Primary Irregular heartbeat Unspecified cardiac dysrhythmia documented in this encounter [facility] Work Phone: Evaluation note* Diagnosis Irregular heartbeat Unspecified cardiac dysrhythmia Syncope and collapse documented in this encounter [facility] Work Phone: Evaluation note* Diagnosis Acute cough- Primary documented in this encounter [facility] Work Phone: Evaluation note* Diagnosis Acute cystitis with hematuria- Primary Rheumatoid arthritis, involving unspecified site, unspecified whether rheumatoid factor present (CMS/HCC) Pulmonary hypertension (CMS/HCC) Other chronic pulmonary heart diseases Hematuria, unspecified type documented in this encounter [facility] Work Phone: Evaluation note* Diagnosis Routine [...] screening by mammogram documented in this encounter [facility] Work Phone: Evaluation note* Diagnosis Irritable bowel syndrome, unspecified type- Primary documented in this encounter [facility] Work Phone: Evaluation note* Diagnosis Breast cancer screening by mammogram documented in this encounter [facility] Work Phone: Evaluation note* Diagnosis Routine general medical examination at [facility] facility- Primary Routine general medical examination at a [facility] Rheumatoid arthritis with negative rheumatoid factor, involving unspecified site (Multi) Hyperlipemia, mixed Mixed hyperlipidemia Vitamin B12 deficiency Other B-complex deficiencies Irritable bowel syndrome, unspecified type Pulmonary hypertension (Multi) Other chronic pulmonary heart diseases Breast screening Breast screening, unspecified Fatigue, unspecified type Breast cancer screening by mammogram Irregular heartbeat Unspecified cardiac dysrhythmia Routine general medical examination at [facility]- Primary Routine general medical examination at a [facility] Rheumatoid arthritis with negative [...] for screening, unspecified documented in this encounter [facility] Work Phone: Evaluation note* Diagnosis Routine general medical examination at [facility]- Primary Routine general medical examination at a [facility] Rheumatoid arthritis with negative rheumatoid factor, involving unspecified site (Multi) Hyperlipemia, mixed Mixed hyperlipidemia Vitamin B12 deficiency Other B-complex deficiencies Irritable bowel syndrome, unspecified type Pulmonary hypertension (Multi) Other chronic pulmonary heart diseases Breast screening Breast screening, unspecified Fatigue, unspecified type Breast cancer screening by mammogram Irregular heartbeat Unspecified cardiac dysrhythmia Routine general medical examination at [facility]- Primary Routine general medical examination at a [facility] Rheumatoid arthritis with negative rheumatoid factor, involving [...] for screening, unspecified documented in this encounter [facility] Work Phone: Evaluation note* Diagnosis Routine general medical examination at [facility]- Primary Routine general medical examination at a [facility] Rheumatoid arthritis with negative rheumatoid factor, involving unspecified site (Multi) Hyperlipemia, mixed Mixed hyperlipidemia Vitamin B12 deficiency Other B-complex deficiencies Irritable bowel syndrome, unspecified type Pulmonary hypertension (Multi) Other chronic pulmonary heart diseases Breast screening Breast screening, unspecified Fatigue, unspecified type Breast cancer screening by mammogram Irregular heartbeat Unspecified cardiac dysrhythmia Routine general medical examination at [facility]- Primary Routine general medical examination at a [facility] Rheumatoid arthritis with negative [...] for screening, unspecified documented in this encounter [facility] Work Phone: Evaluation note* Diagnosis Viral illness- Primary Unspecified viral infection, in conditions classified elsewhere and of unspecified site Elevated liver function tests Other abnormal blood chemistry documented in this encounter [facility] Work Phone: Evaluation note* Diagnosis Pseudothrombocytopenia- Primary documented in this encounter [facility] Work Phone: Evaluation note* Diagnosis Viral illness- Primary Unspecified viral infection, in conditions classified elsewhere and of unspecified site Anemia, unspecified type Myalgia Unspecified myalgia and myositis documented in this encounter [facility] Work Phone: Evaluation note* Diagnosis Rheumatoid arthritis flare (Multi)- Primary Cervical radiculopathy Brachial neuritis or radiculitis nos Hyponatremia Hyposmolality and/or hyponatremia Water intoxication Fluid overload documented in this encounter [facility] Work Phone: Evaluation note* Diagnosis Routine general medical examination at health care facility- Primary Routine general medical examination at a [facility] Rheumatoid arthritis with negative [...] Primary Routine general medical examination at a [facility] care facility Rheumatoid arthritis with negative rheumatoid factor, involving unspecified site (Multi) Fatigue, unspecified type Hyperlipemia, mixed Mixed hyperlipidemia Pulmonary hypertension (Multi) Other chronic pulmonary heart diseases Vitamin B12 deficiency Other B-complex deficiencies Irritable bowel syndrome, unspecified type Hematuria, unspecified type Breast cancer screening by mammogram Acute Lyme disease- Primary Primary osteoarthritis, unspecified site documented in this encounter [facility] Work Phone: Evaluation note* Diagnosis Routine [...] Unspecified cardiac dysrhythmia documented in this encounter [facility] Work Phone: Evaluation note* Diagnosis Routine general medical examination at health care facility- Primary Routine general medical examination at a [facility] facility Rheumatoid arthritis with negative rheumatoid factor, involving unspecified site (Multi) Hyperlipemia, mixed Mixed hyperlipidemia Vitamin B12 deficiency Other B-complex deficiencies Irritable bowel syndrome, unspecified type Pulmonary hypertension (Multi) Other chronic pulmonary heart diseases Breast screening Breast screening, unspecified Fatigue, unspecified type Breast cancer screening by mammogram Irregular heartbeat Unspecified cardiac dysrhythmia Routine general medical examination at [facility] care facility- Primary Routine general medical examination at a [facility] facility Rheumatoid arthritis with negative rheumatoid factor, [...] for screening, unspecified documented in this encounter [facility] Work Phone: Evaluation note* Diagnosis Routine general medical examination at [facility] care facility- Primary Routine general medical examination at a [facility] facility Rheumatoid arthritis with negative rheumatoid factor, involving unspecified site (Multi) Hyperlipemia, mixed Mixed hyperlipidemia Vitamin B12 deficiency Other B-complex deficiencies Irritable bowel syndrome, unspecified type Pulmonary hypertension (Multi) Other chronic pulmonary heart diseases Breast screening Breast screening, unspecified Fatigue, unspecified type Breast cancer screening by mammogram Irregular heartbeat Unspecified cardiac dysrhythmia Routine general medical examination at [facility]- Primary Routine general medical examination at a [facility] Rheumatoid arthritis with negative [...] for screening, unspecified documented in this encounter [facility] Work Phone: Evaluation note* Diagnosis Routine [...] Primary Routine general medical examination at a [facility] care facility Rheumatoid arthritis with negative rheumatoid [...] asymmetry- Primary Routine general medical examination at [facility] facility- Primary Routine general medical examination [...] tissues of limb documented in this encounter [facility] Work Phone: Evaluation note* Diagnosis Routine [...] cardiac dysrhythmia Routine general medical examination at [facility]- Primary Routine general medical examination at a [...] tissues of limb documented in this encounter [facility] Work Phone: Evaluation note* Diagnosis Routine general medical examination at [facility] facility- Primary Routine general medical examination at a [facility] care facility Rheumatoid arthritis with negative rheumatoid factor, involving unspecified site (Multi) Hyperlipemia, mixed Mixed hyperlipidemia Vitamin B12 deficiency Other B-complex deficiencies Irritable bowel syndrome, unspecified type Pulmonary hypertension (Multi) Other chronic pulmonary heart diseases Breast screening Breast screening, unspecified Fatigue, unspecified type Breast cancer screening by mammogram Irregular heartbeat Unspecified cardiac dysrhythmia Routine general medical examination at [facility] facility- Primary Routine general medical examination at a [facility] facility Rheumatoid arthritis with negative rheumatoid [...] Primary Routine general medical examination at a [facility] Encounter for screening, unspecified [...] unspecified site (Multi) documented in this encounter [facility] Work Phone: Evaluation note* Diagnosis Routine [...] cardiac dysrhythmia Routine general medical examination at [facility] facility- Primary Routine general medical examination at a [facility] Rheumatoid arthritis with negative [...] asymmetry- Primary Routine general medical examination at [facility]- Primary Routine general medical examination at a [facility] facility Encounter for screening, unspecified Rheumatoid arthritis [...] left knee- Primary documented in this encounter [facility] Work Phone: History of Present [...] breath, dizziness, lightheadedness, or edema * Sees Technical Support Specialist on a regular basis * Seen Cardiology, [...] * arthritis stable pain [facility] Work Phone: History of Present illness [...] Maintenance: performs independently. * Falls Risk Screening:. KMI has not fallen in the last 6 months. * Home safety risk factors: none. * Advance directives:. Patient has living will. Placed in chart. * Patient's End of Life Decisions: End of life decisions were reviewed with the patient. I agree to follow the patient's decisions. * No headache, chest pain, shortness of breath, dizziness, lightheadedness, or edema * Sees Technical Support Specialist on a regular basis * Seen Cardiology, [...] helps at times * arthritis stable pain [facility] Work Phone: History of Present illness Narrative* [...] breath, dizziness, lightheadedness, or edema * Sees Technical Support Specialist on a regular basis * Seen Cardiology, [...] helps at times * arthritis stable pain [facility] Work Phone: History of Present illness Narrative* [...] breath, dizziness, lightheadedness, or edema * Sees Technical Support Specialist on a regular basis * Seen Cardiology, [...] helps at times * arthritis stable pain [facility] Work Phone: History of Present illness NarrativePatient [...] a severely tortuous redundant left colon without polyps.[facility] [facility] Work Phone: Reason for referral (narrative)* Consultation (Routine) - Authorized Specialty Diagnoses / Procedures Referred By Bere t Referred To Contact Primary Care Diagnoses Acute Lyme disease Procedures Follow Up In Primary Care - Established Akanksha Millan MD [address] [place] [address] Referral ID Status Reason Start Date Expiration Date V isits Requested Visits Authorized [id number] Authorized 04/10/2024 04/10/2025 1 1 [facility] Work Phone: Reason for referral (narrative)* Consultation (Routine) - Authorized Specialty Diagnoses / Procedures Referred By Renayac t Referred To Contact Primary Care Diagnoses Rheumatoid arthritis with negative rheumatoid factor, involving unspecified site (CMS/HCC) Fatigue, unspecified type Procedures Follow Up In Primary Care Akanksha Millan MD [address] [place] [phone] Referral ID Status Reason Start Date Expiration Date V isits Requested Visits Authorized [id number] Authorized 12/17/2022 06/15/2023 1 1 * Imaging (Routine) - Authorized Specialty Diagnoses / Procedures Referred By Contac t Referred To Contact Radiology Diagnoses Breast screening Breast cancer screening by mammogram Procedures BI mammo bilateral screening tomosynthesis Akanksha Millan MD [address] [phone] Referral ID Status Reason Start Date Expiration Date Visits Requested Visits Authorized [id number] Authorized Perform Procedure 12/17/2022 06/15/2023 1 1 [facility] Work Phone: Reason for referral (narrative)No reason for referral [facility]: Reason for visit Narrative* Cardiac Stress Testing (Routine) - Authorized Specialty Diagnoses / Procedures Referred By Contac t Referred To Contact Cardiology Diagnoses Acute Lyme disease Pulmonary HTN (Multi) NSVT (nonsustained ventricular tachycardia) (Multi) Procedures Holter or Event Warehouse Director Milan Reid MD [address] [place] [address] Dr [address] [facility], [address] [address] Phone: tel: fax: Referral ID Status Reason Start Date Expiration Date V isits Requested Visits Authorized [id number] Authorized 08/16/2024 08/16/2025 1 1 [facility] Work Phone: reason for visit Narrative* CV Imaging (Routine) - Authorized Specialty Diagnoses / Procedures Referred By Contac t Referred To Contact Cardiology Diagnoses Acute Lyme disease Pulmonary HTN (Multi) NSVT (nonsustained ventricular tachycardia) (Multi) Procedures Transthoracic Echo (TTE) Complete SC ECHO TTHRC R-T 2D W/WOM-MODE COMPL SPEC&COLR D Milan Reid MD [address] [facility] [address] [place] [address] Phone: tel: fax: Referral ID Status Reason Start Date Expiration Date Visits Requested Visits Authorized [id number] Authorized Perform Procedure 08/16/2025 1 1 [facility] Work Phone: Redeuz for visit Narrative* Imaging (Routine) - Authorized Specialty Diagnoses / Procedures Referred By Contac t Referred To Contact Radiology Diagnoses Breast asymmetry Procedures BI mammo bilateral diagnostic tomosynthesis Aileen Shoemaker DO [address] [facility] [address] [place] [address] Phone: tel: fax: Referral ID Status Reason Start Date Expiration Date Visits Requested Visits Authorized [id number] Authorized Perform Procedure 10/26/2024 10/26/2025 1 1 [facility] Work Phone: Summary Purpose Family History No [...] No June 06, 2021 4:52am Power of Microbiology Laboratory Manager No May 4:52am Advance Directive Response Recorded Date/ Time Living Will No September 05 022 7:22pm Power of Microbiology Laboratory Manager No September 05, 2022 7:22pm Documents on File Type Date Recorded Patient [employer] Healthcare Power of Atty 12/17/2022 Documents on File Type Date Recorded Patient [employer] anation Healthcare Power of Atty 12/17/2022 Advance Directive Response Recorded Date/ Time Living Will No September 05 6:22pm Power of Microbiology Laboratory Manager No September 05, 2022 6:22pm Documents on File Type Date Recorded Patient [employer] Pumper Expl anation Power of Microbiology Laboratory 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 12/17/2022 10:04 AM Chief Complaint Pulmonary hypertensionWELLNES [...] BOTH Chief Complaint 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 Chief Complaint 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 CMP ONLY- LAST SPECIMEN NEVER MADE IT TO LAB Chief Complaint PAIN- COPY PCP CMP ONLY- LAST SPECIMEN NEVER MADE IT TO LAB RHEUMATOID ARTRITIS Chief Complaint Other senior care (cur rent) drug therapy PAIN- COPY PCP [...] and collapse Procedures Transthoracic Echo (TTE) Complete SC ECHO TRANSTHORC R-T 2D W/WO M-MODE REC F-UP/LMTD SC DOP ECHOCARD COLOR FLOW VELOCITY MAPPING SC DOP ECHOCARD PULSE WAVE W/SPECTRAL F-UP/LMTD STD Milan Reid MD [address] [facility] [address] [place] [id number] Referral ID Status Reason Start Date Expiration Date Visits Requested Visits Authorized [id number] Pending Review Perform Procedure 3 08/24/2024 1 1 Specialty Diagnoses / Procedures Referred By Contac t Referred To Contact Diagnoses Irregular heartbeat Procedures ECG 12 lead (Clinic Performed) Milan Reid MD [address] [facility], [facility] [address] [place] [address] Referral ID Status Reason Start Date Expiration Date V isits Requested Visits Authorized [id number] Pending Review 08/25/2023 08/24/2024 1 1 Referral ID Status Reason Start Date Expiration Date Visits Requested Visits Authorized [id number] Authorized Perform Procedure 08/24/2024 1 1 Specialty Diagnoses / Procedures Referred By Contac t Referred To Contact Radiology Diagnoses Breast cancer screening by mammogram Procedures BI mammo bilateral screening tomosynthesis Akanksha Millan MD [address] [phone] Referral ID Status Reason Start Date Expiration Date Visits Requested Visits Authorized [id number] Authorized Perform Procedure 12/20/2023 12/19/2024 1 1 [...] Primary Care - Established Akanksha Millan MD [address] [place] [address] Referral ID Status Reason Start Date Expiration Date V isits Requested Visits Authorized [id number] Authorized 12/20/2023 12/19/2024 1 1 Additional Source Comments INFORMATION SOURCE (unrecogn ized section and content) DATE CREATED AUTHOR 03/21/2018 [facility] DATE CREATED AUTHOR AUTHOR'S ORGANIZ ATION 02/14/2019 [facility] DATE CREATED AUTHOR AUTHOR'S ORGANIZ ATION 08/26/2021 [facility] DATE CREATED AUTHOR AUTHOR'S ORGANIZ ATION 08/27/2022 [email or web address] DATE CREATED AUTHOR AUTHOR'S ORGANIZ ATION 02/19/2023 [facility] DATE CREATED AUTHOR AUTHOR'S ORGANIZ ATION 04/12/2024 [facility] DATE CREATED AUTHOR AUTHOR'S ORGANIZ ATION 05/07/2024 [facility] DATE CREATED AUTHOR AUTHOR'S ORGANIZ ATION 12/22/2024 [facility] DATE CREATED AUTHOR AUTHOR'S ORGANIZ ATION 12/26/2024 [facility] DATE CREATED AUTHOR AUTHOR'S ORGANIZ ATION 05/18/2025 [facility] DATE CREATED AUTHOR AUTHOR'S ORGANIZ ATION [...] Dr. Lety Marcelo MD Attending Provider Active Motion Study Engineer Relationship Specialty Start Date End Date Akanksha Millan MD PCP - General 05/29/19 Rogers Bradley DO [address] [facility], [place] [address] PCP - [employer] Medicare Advantage PCP 09/26/22 Motion Study Engineer Relationship Specialty Start Date End Date Rogers Bradley DO [address] [facility], [place] [id number] PCP - [employer] Medicare Advantage PCP 09/26/22 Akanksha Millan MD [address] [place] [address] PCP - General Family Medicine 08/31/23 Motion Study Engineer Relationship Specialty Start Date End Date Rogers Bradley DO [address] [facility], [facility] [address] [phone] PCP - [employer] Medicare Advantage PCP 09/26/22 Akanksha Millan MD [address] [phone] PCP - General Family Medicine 08/31/23 Motion Study Engineer Relationship Specialty Start Date End Date Rogers Bradley DO [address] [facility], [place] [address] PCP - [employer] Medicare Advantage PCP 09/26/22 Akanksha Millan MD [address] [place] [address] PCP - General Family Medicine 08/31/23 Motion Study Engineer Relationship Specialty Start Date End Date Rogers Bradley DO [address] [facility], [place] [address] PCP - [employer] Medicare Advantage PCP 09/26/22 Akanksha Millan MD [address] [place] [address] PCP - General Family Medicine 08/31/23 Motion Study Engineer Relationship Specialty Start Date End Date Rogers Bradley DO [address] [facility], [place] [address] PCP - [employer] Medicare Advantage PCP 09/26/22 Akanksha Millan MD [address] [place] [address] PCP - General Family Medicine 08/31/23 Motion Study Engineer Relationship Specialty Start Date End Date Rogers Bradley DO [address] [facility], [address] [address] PCP - [employer] Medicare Advantage PCP 09/26/22 Akanksha Millan MD [address] [address] PCP - General Family Medicine 08/02/24 Motion Study Engineer Relationship Specialty Start Date End Date Rogers Bradley DO [address] [facility], [address] [address] PCP - [employer] Medicare Advantage PCP 09/26/22 Akanksha Millan MD [address] [address] PCP - General Family Medicine 08/02/24 Motion Study Engineer Relationship Specialty Start Date End Date Rogers Bradley DO [address] [facility], [address] [address] PCP - [employer] Medicare Advantage PCP 09/26/22 Akanksha Millan MD [address] [address] PCP - General Family Medicine 08/02/24 Motion Study Engineer Relationship Specialty Start Date End Date Rogers Bradley DO [address] [facility], [address] [address] PCP - [employer] Medicare Advantage PCP 09/26/22 Akanksha Millan MD [address] [place] [address] PCP - General Family Medicine 08/31/23 Motion Study Engineer Relationship Specialty Start Date End Date Rogers Bradley DO [address] [facility], [facility] [address] [place] [address] PCP - [employer] Medicare Advantage PCP 09/26/22 Akanksha Millan MD [address] [place] [address] PCP - General Family Medicine 08/31/23 Motion Study Engineer Relationship Specialty Start Date End Date Rogers Bradley DO [address] [facility], [facility] [address] [place] [address] PCP - [employer] Medicare Advantage PCP 09/26/22 Akanksha Millan MD [address] [place] [address] PCP - General Family Medicine 08/31/23 Motion Study Engineer Relationship Specialty Start Date End Date Rogers Bradley DO [address] [facility], [place] [address] PCP - [employer] Medicare Advantage PCP 09/26/22 Akanksha Millan MD [address] [place] [address] PCP - General Family Medicine 08/31/23 Motion Study Engineer Relationship Specialty Start Date End Date Akanksha Millan MD [address] [place] [address] PCP - General 05/29/19 Rogers Bradley DO [address] [facility] [place] [address] [place] [address] PCP - [employer] Medicare Advantage PCP 08/26/22 Motion Study Engineer Relationship Specialty Start Date End Date Akanksha Millan MD [address] [address] PCP - General Family Medicine 08/02/24 Akanksha Millan MD [address] [address] PCP - [employer] Medicare Advantage PCP 09/26/24 Motion Study Engineer Relationship Specialty Start Date End Date Akanksha Millan MD [address] [address] PCP - General Family Medicine 08/02/24 Akanksha Millan MD [address] [address] PCP - [employer] Medicare Advantage PCP 09/26/24 Motion Study Engineer Relationship Specialty Start Date End Date Akanksha Millan MD [address] [address] PCP - General Family Medicine 08/02/24 Akanksha Millan MD [address] [address] PCP - [employer] Medicare Advantage PCP 09/26/24 Motion Study Engineer Relationship Specialty Start Date End Date Akanksha Millan MD [address] [address] PCP - General Family Medicine 08/02/24 Akanksha Millan MD [address] [address] PCP - Aet Medicare Advantage PCP 09/26/24 [...] April 24, 2025 End: April 24, 2025 Motion Study Engineer Relationship Specialty Start Date End Date Akanksha Millan MD [address] [address] PCP - General Family Medicine 08/02/24 Akanksha Millan MD [address] [address] PCP - [employer] Medicare Advantage PCP 09/26/24 [...] Reid MD [address] [place], [place] [address] Referral ID Status Reason Start Date Expiration Date V isits Requested Visits Authorized [id number] Pending Review 08/25/2023 08/24/2024 1 1 Specialty Diagnoses / Procedures Referred By Contac t Referred To Contact Cardiology Diagnoses Irregular heartbeat Syncope and collapse Procedures Transthoracic Echo (TTE) Complete SC ECHO TRANSTHORC R-T 2D W/WO M-MODE REC F-UP/LMTD SC DOP ECHOCARD COLOR FLOW VELOCITY MAPPING SC DOP ECHOCARD PULSE WAVE W/SPECTRAL F-UP/LMTD STD Milan Reid MD [address] [place], [address] [address] Referral ID Status Reason Start Date Expiration Date Visits Requested Visits Authorized [id number] Authorized Perform Procedure 3 08/24/2024 1 1 [...] unspecified site ([facility]) Fatigue, unspecified type Procedures Follow Up In Primary [place] [address] Referral ID Status Reason Start Date Expiration Date Visits Re quested Visits Authorized [id number] Closed 12/17/2022 06/15/2023 1 1 Reason Comments Follow-up IBS pt reports only 7 really bad days in the past year. Specialty Diagnoses / Procedures Referred By Bere t Referred To Contact Radiology Diagnoses Breast cancer screening by mammogram Procedures BI mammo bilateral screening tomosynthesis Akanksha Millan MD [address] [place] [address] Referral ID Status Reason Start Date Expiration Date Visits Requested Visits Authorized [id number] Authorized Perform Procedure 12/20/2023 12/19/2024 1 1 Reason Comments Follow-up 1 year Reason Comments ER F/U Fever/HIRSCH Reason Comments abnormal labs Pt comes in for abno rmal labs. Pt states she received a call from her PCP's office to come be evaluated. Pt was recently seen in [place] ER for a syncopal episode 3 days [...] Expiration Date V isits Requested Visits Authorized [id number] Authorized 12/20/2023 12/19/2024 1 1 Reason Comments [...] BE BASED ON THE PRIMARY CLINICAL RECORDS. [employer] [facility]. provides no warranty or guarantee of the accuracy or completeness of information in this document.
== END | disposition home or self-care (01) ==
LOC: CVS 06:40
PROVIDERS: PCP Family Medicine; Referring Provider Internal Medicine Cardiovascular Disease; Visit Provider Internal Medicine Cardiovascular Disease
DX: I27.20 Pulmonary hypertension, unspecified (principal); I48.91 Unspecified atrial fibrillation; I48.92 Unspecified atrial flutter
CPT/HCPCS: 93306